=== PATIENT | female | born 1980 | race Caucasian/White ===

== ENCOUNTER 2019-11-24 19:00 | Emergency (ER) | payer OTHER, SELFPAY ==
[2019-11-24 19:17] VITALS: BP 151/84; PULSE 99; RESP 25; TEMP 37.1; O2SAT 100
--- NOTE | 2019-11-24 19:27 | ED.DENTAL ---
HPI - Dental/Oral General Chief complaint: Dental/Oral Stated complaint: tooth pain Time Seen by Provider: 11/24/19 19:20 Source: patient and RN notes reviewed Mode of arrival: ambulatory Limitations: no limitations History of Present Illness HPI Narrative: Patient presents today complaining of left upper and lower dental pain x4 days. She cannot pinpoint a 2 of 6 painful. She does not currently have a dentist. She has been taking Tylenol and using Orajel without relief. History of Crohn's disease and she is currently on day 15 of an 18-day course of Levaquin for Crohn's flare. Denies shortness of breath or difficulty swallowing. MD Complaint: tooth pain Related Data Home Medications Medication Instructions Recorded Confirmed omeprazole 11/24/19 Allergies Allergy/AdvReac Type Severity Reaction Status Date / Time Penicillins AdvReac Rash Verified 11/24/19 19:20 Review of Systems Review of Systems: Narrative: CONSTITUTIONAL: Denies body aches, fever, chills, or sweats. EYES: Denies visual changes, redness, or discharge. ENT: Denies rhinorrhea, congestion, sore throat, or otalgia.+ Dental pain CARDIOVASCULAR: Denies chest pain, palpitations, or edema. RESPIRATORY: Denies cough or dyspnea. GASTROINTESTINAL: Denies abdominal pain, nausea, vomiting, or diarrhea. GENITOURINARY: Denies dysuria or hematuria. SKIN: Denies rash, itching, or wounds. MUSCULOSKELETAL: Denies back pain, joint pain, or myalgia. NEUROLOGIC: Denies headache, numbness, tingling, or weakness. PSYCH: Denies depression or anxiety. [facility] Past Medical History Medical History (Updated 11/24/19 @ 19:32 by Fabi Venegas, [facility], ) Crohn's disease Comments At time of signature, I have reviewed and agree with nursing past medical, surgical, social and family history unless otherwise noted. Please see nursing chart for further information. There is no relevant family history pertinent to the presenting complaint Exam Narrative: Exam Narrative: GENERAL: Well-appearing, well-nourished, and in mild pain distress. HEAD: Normocephalic, atraumatic. EYES: EOMI. No redness or drainage. Conjunctivae normal. ENT: Mucous membranes pink and moist. Throat normal. Uvula midline. Moderate dental decay. Several missing teeth. Few teeth are black in color and broken off at the gumline. Patient has no obvious periapical abscess or gum swelling. Left upper and lower teeth are tender to palpation. NECK: Normal AROM. Supple. No lymphadenopathy. CHEST: No respiratory distress. EXTREMITIES: Normal range of motion. No edema. SKIN: Warm, dry, no rash. Capillary refill normal. Normal skin turgor. NEURO: No focal deficits. Alert and oriented x3. Gait steady. PSYCH: Normal affect. No signs of depression or anxiety. Course Vital Signs Vital signs: Vital Signs Temperature 98.7 F 11/24/19 19:17 Pulse Rate 99 11/24/19 19:17 Respiratory Rate 25 H 11/24/19 19:17 Blood Pressure 151/84 H 11/24/19 19:17 Pulse Oximetry 100 11/24/19 19:17 Temperature 98.7 F 11/24/19 19:17 Pulse Rate 99 11/24/19 19:17 Respiratory Rate 25 H 11/24/19 19:17 Blood Pressure 151/84 H 11/24/19 19:17 Pulse Oximetry 100 11/24/19 19:17 Reviewed. Pt has been instructed to follow up with her PCP regarding her elevated blood pressure today. MDM - Dental/Oral Differential Diagnosis Differential diagnosis: Likely gingival abscess, dental caries, toothache, dental abscess and fracture of tooth Critical Care Time Critical Care Time Critical Care Time: No Discharge Plan Discharge Clinical Impression: Dental caries Patient Disposition: Home, Self-Care Condition: Stable Instructions: Antibiotic Form, Dental Abscess (ED) Additional Instructions: Please take the clindamycin as prescribed. Follow-up with a dentist as soon as possible. Continue Tylenol and Orajel for pain. Your blood pressure was elevated above 120/80 today at Urgent Care. This
== END 2019-11-24 19:33 | disposition home or self-care (01) ==
PROVIDERS: Emergency Provider Nurse Practitioner
DX: K02.9 Dental caries, unspecified (principal)
CPT/HCPCS: 99203; G0463

== ENCOUNTER 2019-11-30 11:35 | Emergency (ER) | payer OTHER, SELFPAY ==
[2019-11-30 11:57] VITALS: BP 155/103; PULSE 97; RESP 18; TEMP 37.5; O2SAT 98
--- NOTE | 2019-11-30 11:59 | ED.SKABFB ---
HPI - Skin/Abscess/Foreign Bdy General Chief complaint: Skin/Abscess/Foreign Body Stated complaint: Possible Cellulitis on abd Time Seen by Provider: 11/30/19 11:59 Source: patient and RN notes reviewed Mode of arrival: ambulatory Limitations: no limitations History of Present Illness HPI narrative: 39-year-old female presents with concern for sores on her abdomen. Reports history of sores on her lower abdomen. Reports symptoms started 3 days ago with a boil then redness spread to her mid abdomen. Denies fever, malaise, drainage from the abdomen. Related Data Home Medications Medication Instructions Recorded Confirmed omeprazole 11/24/19 azathioprine 11/30/19 Allergies Allergy/AdvReac Type Severity Reaction Status Date / Time Penicillins AdvReac Rash Verified 11/24/19 19:20 Review of Systems Review of Systems: Narrative: CONSTITUTIONAL: Denies malaise, chills, sweats, or fever. CARDIOVASCULAR: Denies chest pain, palpitations RESPIRATORY: Denies cough or dyspnea. GASTROINTESTINAL: Denies abdominal pain, nausea, vomiting, diarrhea SKIN: Reports boil with surrounding redness, tenderness MUSCULOSKELETAL: Denies myalgia. All systems reviewed & are unremarkable except as noted in HPI and below PMFSH Past Medical History Medical History (Updated 11/30/19 @ 12:16 by Yuni Waite NP) Crohn's disease Comments At time of signature, agree with nursing past medical, surgical, social and family history. There is no relevant family history pertinent to the presenting complaint Exam Narrative: Exam Narrative: GENERAL: Well-appearing, well-nourished, and in no acute distress. HEAD: Normocephalic, atraumatic. EYES: PERRLA, conjunctivae clear ENT: Mucous membranes moist. CHEST: No respiratory distress. Speaks in full sentences. HEART: Regular rate and rhythm. ABDOMEN: Obese, pendulous SKIN: Warm, dry. Boil noted to right lower abdomen approximately 2 cm diameter of fluctuation palpable approximately 2 cm below the skin. Erythema, edema, tenderness surrounding boil and extending across the mid abdomen approximately 18 cm x 40 cm NEURO: Alert and oriented x3. PSYCH: Normal mood and affect Course Course Emergency Course: Patient is aware of diagnosis, understands and agrees to treatment plan. Anticipatory guidance given. Patient agrees to follow-up as directed and is aware of reasons to seek care at the emergency department. Portions of this record may have been created with voice recognition software Vital Signs Vital signs: Vital Signs Temperature 99.5 F 11/30/19 11:57 Pulse Rate 97 11/30/19 11:57 Respiratory Rate 18 11/30/19 11:57 Blood Pressure 155/103 H 11/30/19 11:57 Pulse Oximetry 98 11/30/19 11:57 Temperature 99.5 F 11/30/19 11:57 Pulse Rate 97 11/30/19 11:57 Respiratory Rate 18 11/30/19 11:57 Blood Pressure 155/103 H 11/30/19 11:57 Pulse Oximetry 98 11/30/19 11:57 Reviewed. Patient has been instructed to follow up with her primary care provider within the next week regarding her elevated blood pressure today. Procedures Abscess I/D abdomen: Date of Incision: 11/30/19 Time of Incision: 12:10 Technique: needle aspiration Amount of fluid expressed (mL): 4 Irrigation: No Packing used?: none I&D Results: Pus MDM - Skin/Abscess/Foreign Bdy MDM Narrative Medical decision making narrative: Exam findings show no acute concerns or changes; patient is non-toxic appearing and is in no distress. Patient is appropriate for outpatient treatment and follow-up. Differential Diagnosis Differential diagnosis: Likely abscess of skin or subcutaneous tissue, cellulitis and contact dermatitis Critical Care Time Critical Care Time Critical Care Time: No Discharge Plan Discharge Clinical Impression: Cellulitis Qualifiers: Site of cellulitis: trunk Site of cellulitis of trunk: abdominal wall Qualified Code(s): L03.311 - Cellu
== END 2019-11-30 12:24 | disposition home or self-care (01) ==
PROVIDERS: Emergency Provider Nurse Practitioner
DX: L03.311 Cellulitis of abdominal wall (principal); L02.211 Cutaneous abscess of abdominal wall
CPT/HCPCS: 10060; 87070; 87077; 87205; 99213; G0463

== ENCOUNTER 2019-12-18 13:54 | Inpatient (IN) | payer OTHER, SELFPAY ==
--- NOTE | ~2019-12-18 | CT_ITS ---
EXAMINATION: CT abdomen pelvis w con EXAM DATE: 12/18/2019 16:25 INDICATION: Cellulitis of the panniculus TECHNIQUE: Spiral CT of the abdomen and pelvis was performed following intravenous injection of 100 m L Omnipaque 350. Axial, coronal and sagittal images were reviewed. The dose-length product (DLP) fo r this examination was 1595.25 mGy-cm. The exposure was tailored according to patient size (auto mA exposure control), and iterative reconstruction (ASIR) was used as additional dose reduction techniqu e. There is no prior study for comparison. FINDINGS: There is a left adrenal gland low-density lesion measuring 9 mm, likely an adenoma. The li robert, spleen, adrenal glands and pancreas are otherwise unremarkable. There are cholecystectomy clips . Portal and splenic veins are patent. Kidneys enhance symmetrically. There is no hydronephrosis. Several left calyceal stones. The uterus is unremarkable. Right ovary likely has a dominant follicle . The bladder is unremarkable. There is no retroperitoneal or pelvic lymphadenopathy. Umbilicus i s unremarkable. Probable identification of a normal appendix. No pericecal inflammation. The stomach and small kale l are unremarkable. There is expected amount of colonic stool. No free intraperitoneal gas. The heart is normal in size. There are no pericardial or pleural effusions. The lung bases are unremark able. There are no osteoblastic or osteolytic lesions identified. IMPRESSION: 1. No acute intra-abdominal findings. 2. Left nephrolithiasis. 3. Left adrenal adenoma. Reviewed, dictated and finalized at location A.
--- NOTE | ~2019-12-18 | US_ITS ---
EXAMINATION: US venous doppler [facility] DATE: 12/19/2019 10:57 INDICATION: Lower limb edema. TECHNIQUE: Grayscale ultrasound images without and with compression and Doppler ultrasound images of the bilateral lower extremity veins were obtained. COMPARISON: None. FINDINGS: The visualized portions of right common femoral vein, profunda (deep) femoral vein, femoral vein, pop liteal vein, peroneal veins, posterior tibial veins, and greater saphenous vein outflow are patent. The visualized portions of left common femoral vein, profunda femoral vein, femoral vein, popliteal v ein, peroneal veins, posterior tibial veins, and greater saphenous vein outflow are patent. IMPRESSION: 1. No deep venous thrombosis. Reviewed, dictated and finalized at location A.
--- NOTE | 2019-12-18 14:47 | ED.GENADULT ---
HPI - General Adult General Chief complaint: Unspecified Stated complaint: Abd to feet swelling Time Seen by Provider: 12/18/19 14:38 History of Present Illness HPI narrative: Patient presents for lower abdominal pain and swelling. She recently had a boil lanced beneath her right panniculus. She has had 3 courses of oral antibiotics. The swelling and redness has expanded along her lower panniculus. She feels like her lower abdomen and legs are swollen. She has had no documented fever, no chills, but she has had sweats. She has a history of bowel resection from a Crohn's exacerbation, with insertion of mesh across the lower abdomen. History of cholecystectomy and appendectomy, and 3 laparoscopies, in addition to her bowel resection and mesh implantation. She is currently unemployed and would like to work her the [employer]. She recently quit smoking. She does like to drink alcohol, but does not smoke marijuana. Onset (ago): week(s) Location: abdomen Radiation: non-radiation Severity: moderate Severity scale (1-10): 5 Pain Consistency: constant Relieving factors: none Exacerbating factors: other (Palpitation) Associated symptoms: other (Chills, lower abdominal swelling, leg swelling) Treatments prior to arrival: other (3 courses of oral antibiotics) Related Data Home Medications Medication Instructions Recorded Confirmed omeprazole 11/24/19 azathioprine 11/30/19 Allergies Allergy/AdvReac Type Severity Reaction Status Date / Time Penicillins AdvReac Rash Verified 12/18/19 15:01 Review of Systems Review of Systems: Narrative: CONSTITUTIONAL: Denies fever or sweats. EYES: Denies visual changes, redness, or discharge. ENT: Denies rhinorrhea, congestion, sore throat, or otalgia. CARDIOVASCULAR: Denies chest pain, palpitations, or edema. RESPIRATORY: Denies cough or dyspnea. GASTROINTESTINAL: Denies nausea, vomiting, or diarrhea. GENITOURINARY: Denies dysuria or hematuria. SKIN: Denies rash or itching. MUSCULOSKELETAL: Denies back pain, joint pain, or myalgia. NEUROLOGIC: Denies headache, numbness, or weakness. PSYCHIATRIC: Denies anxiety or depression. [facility] Past Medical History Medical History Crohn's disease Rupture of bowel Surgical History Surgical History (Updated 12/18/19 @ 14:49 by Bhavna Gardiner MD) History of appendectomy History of bowel resection History of cholecystectomy Social History Social History (Updated 12/18/19 @ 14:49 by Bhavna Gardiner MD) Smoking status: Former smoker Alcohol intake: current Substance use: never Exam Narrative: Exam Narrative: GENERAL: Well-appearing, well-nourished, and in no acute distress. Overweight. HEAD: Normocephalic, atraumatic. EYES: PERRLA and EOMI. ENT: Nares clear, no rhinorrhea or epistaxis. Mucous membranes moist. NECK: Supple. CHEST: Clear to auscultation. No respiratory distress. HEART: Regular rate and rhythm. No murmur heard. Normal peripheral pulses. ABDOMEN: Panniculus is swollen, reddened, and tender. There is intertrigo between the panniculus in the suprapubic area. There is no focus of abscess or drainage. EXTREMITIES: Normal range of motion. Moderate edema SKIN: Warm, dry, no rash. NEURO: No focal deficits. Alert and oriented x3. PSYCH: Normal mood and affect. Course Reevaluation(s) Reevaluation #1: Went in to tell the patient that nothing serious showed up on her CAT scan, and that I would admit her for IV antibiotics for couple of days. She agrees, and I will order her regular diet. Date: 12/18/19 Time: 17:14 Consultations Consultation #1: Calling the hospitalist for admission for IV antibiotics for cellulitis of the panniculus, and possible infection of the graft material.Naina asked to find out where she got the mesh. [facility] in [facility]. Will call Dr. Salcedo to see if he will consult. Date: 12/18/19 Time: 17:14 Consultation #2: Call Dr. Maya
[2019-12-18 14:57] VITALS: BP 164/99; PULSE 110; RESP 20; TEMP 36.8; O2SAT 100
[2019-12-18] MEDS: SODIUM CHLORIDE 0.9% IV 1,000 ML 999 ML IV CONT (15:29)
[2019-12-18 15:30] LABS: Basophils Percent Auto 0.4 % (0.2-1.2); Eosinophils Absolute Auto 0.1 K/mm3 (0-0.3); Eosinophils Percent Auto 1.2 % (0-4.4); Hematocrit 30.7 % (37.0-47.0); Hemoglobin 9.3 g/dL (12.0-15.0); Immature Granulocyte Absolute 0.02 K/mm3 (0.00-0.031); Immature Granulocyte Percent A 0.3 % (0-0.5); Lymphocytes Absolute Auto 1.71 K/mm3 (0.9-3.2); Lymphocytes Percent Auto 25.1 % (18.3-44.2); Mean Corpuscular HGB Conc 30.3 g/dl (32-36); Mean Corpuscular Hemoglobin 24.2 pg (26-34); Mean Corpuscular Volume 79.7 fl (80-100); Monocytes Absolute Auto 0.4 K/mm3 (0.1-0.6); Neutrophils Absolute Auto 4.6 K/mm3 (1.3-6.7); Platelet Count Result 315 k/mm3 (150-375); Red Blood Count 3.85 M/mm3 (4.2-5.4); Red Cell Distribution Width 20.5 % (11.5-14.5); White Blood Count 6.8 K/mm3 (4.5-10.0)
[2019-12-18 15:43] LABS: Add Urine Microscopic? NO; Appearance Urine Clear (Clear); Bilirubin Urine Negative (Negative); Blood Urine Negative (Negative); Color Urine Yellow (Yellow); Glucose Urine UA Negative (Negative); Ketones Urine Negative (Negative); Leukocyte Esterase Ur Negative LEU/UL (Negative); Nitrate Urine Negative (Negative); Protein Urine Negative (Negative); Urobilinogen Urine Negative mg/dL (<2.0)
[2019-12-18 15:44] LABS: Alanine Aminotransferase 38 U/L (4-35); Albumin Level 3.8 g/dL (3.5-5.1); Alkaline Phosphatase 73 U/L (38-126); Aspartate Amino Transferase 42 U/L (14-36); Bilirubin,Total 0.4 mg/dL (0.2-1.3); Blood Urea Nitrogen 6 mg/dL (7-17); Calcium 9.3 mg/dL (8.4-10.2); Carbon Dioxide 24 mmol/L (22-30); Chloride 107 mmol/L (98-107); Estimated CRCL calculation 141 ml/min; Estimated Glomerular Filt Rate > 60; Glucose 98 mg/dL (65-105); Sodium 136 mmol/L (137-145)
[2019-12-18 15:45] LABS: Lactic Acid 0.6 mmol/L (0.7-2.1)
[2019-12-18 17:45] VITALS: BP 180/90; PULSE 80; RESP 20; TEMP 37.1; O2SAT 100
[2019-12-18 20:07] VITALS: BP 130/80; PULSE 80; RESP 20; O2SAT 99
--- NOTE | 2019-12-18 20:07 | ADMGEN ---
This patient, Roma Rowan, was admitted to Medical Room 250-01. Patient/family oriented to hospital policies and general routines including ID bracelet, bed and alarms, visiting hours, pain management, procedures, bathroom and other care routines, personal items, smoking policy, room service/diet, and visiting hours. Valuables list has been completed. Information on how to activate the Rapid Response Team has been discussed. Patient/Family are encouraged to report perceived risks to care and to ask questions if they do not understand what they are told or what they should do.
[2019-12-18 20:10] VITALS: BP 169/77; PULSE 91; RESP 22; TEMP 36.3; O2SAT 100; BMI 53.4
[2019-12-18] MEDS: ACETAMINOPHEN 325 MG TABLET 650 MG PO (20:30)
--- NOTE | 2019-12-18 23:34 | PM.IMHP ---
H&P: HPI History of Present Illness Chief complaint: cellulitis panniculus Narrative: Roma Rowan is a 39 year old female who has had a hernia repair 7 or 8 years ago with mesh to her abdomen is had multiple abdominal surgeries in the past. The patient stated that she has had cellulitis to her lower extremities in the past due to a cat bite. The patient been going to the urgent care it looks like on 11/24/2019 she was seen for cellulitis of the abdomen + dental caries. The patient has been on at least 4 antibiotics for her abdominal cellulitis. She has been on Bactrim, doxycycline, Levaquin, and clindamycin. Patient stated that her infection has not gotten any better. She did have an I and D of that abdomen abscess there 1 of the clinics wound culture from 11/30/2019 was read as Actinomyces neuii. Patient has failed outpatient treatment. A CT of the abdomen that was read as no acute intra-abdominal findings. Left nephrolithiasis. Left adrenal adenoma. Patient was placed on vancomycin and Levaquin. Surgical consult was placed and surgery stated that they were not needed at this time but in the near future they would be available if needed. She was started on IV fluids and given Tyrone 1 time. Date of service 12/18/2019 Review of Systems Review of Systems: All systems reviewed & are unremarkable except as noted in HPI and below Constitutional: Constitutional: Reports as per HPI and Reports no additional constitutional complaints Eyes: Eyes: Reports as per HPI and Reports no additional eye complaints ENT: Reports system reviewed and no additional complaints, except as documented and Reports Normal hearing present Cardiovascular: Cardiovascular: Reports no additional cardiovascular complaints Respiratory: Respiratory: Reports no additional respiratory complaints and Reports no additional respiratory complaints Gastrointestinal: Gastrointestinal: Reports as per HPI and Reports no additional gastrointestinal complaints Musculoskeletal: Musculoskeletal: Reports no additional musculoskeletal complaints Integumentary/Breasts: Skin/Breast: Reports system reviewed and no additional complaints, except as docu and Reports as per HPI Neurologic: Reports system reviewed and no additional complaints, except as documented, Reports as per HPI and Reports Normal hearing present Psychiatric: Psychiatric: Reports no additional psychiatric complaints and Reports as per HPI Endocrine: Endocrine: Reports no additional endocrine complaints Hematologic/Lymphatic: Hematologic/Lymphatic: Reports no additional hematologic/lymphatic complaints Allergic/Immunologic: Allergic/Immunologic: Reports no additional allergic/immunologic complaints [facility] Past Medical History Medical History (Updated 12/18/19 @ 23:54 by Naina Clayton NP) Crohn's disease GERD with esophagitis Small bowel obstruction Surgical History Surgical History (Updated 12/18/19 @ 23:42 by Naina Clayton NP) H/O hernia repair With mesh placement History of appendectomy History of cholecystectomy History of tonsillectomy Family History Family History (Updated 12/18/19 @ 23:43 by Naina Clayton NP) Father Diabetes mellitus Mother Hypertension Sibling Crohn's colitis Social History Social History (Updated 12/18/19 @ 23:44 by Naina Clayton NP) Social History: The patient moved here with her fiance. She has no children. She is not currently working and considered applying for disability due to her Crohn's disease. Patient quit smoking about a month ago. He smokes marijuana just brought every day. She does not have a power of jackerman but desires to be a full code. Years smoked: 20 Smoking status: Former smoker Tobacco type: cigarettes Smoking end date: 11/17/19 Alcohol intake: current Drinks per week: 1 Substance use: current Substance use type: marijuana Last use: 12/17/19 Living arrangements: with family Occupation/Educati
[2019-12-19 04:00] VITALS: BP 144/90; PULSE 87; RESP 22; TEMP 36.3; O2SAT 99
[2019-12-19 06:52] LABS: Basophils Percent Auto 0.4 % (0.2-1.2); Eosinophils Absolute Auto 0.1 K/mm3 (0-0.3); Eosinophils Percent Auto 1.7 % (0-4.4); Hematocrit 29.5 % (37.0-47.0); Hemoglobin 8.9 g/dL (12.0-15.0); Immature Granulocyte Absolute 0.03 K/mm3 (0.00-0.031); Immature Granulocyte Percent A 0.4 % (0-0.5); Lymphocytes Absolute Auto 1.94 K/mm3 (0.9-3.2); Lymphocytes Percent Auto 26.8 % (18.3-44.2); Mean Corpuscular HGB Conc 30.2 g/dl (32-36); Mean Corpuscular Hemoglobin 23.9 pg (26-34); Mean Corpuscular Volume 79.3 fl (80-100); Mean Platelet Volume 8.7 fl (7.4-10.4); Monocytes Absolute Auto 0.5 K/mm3 (0.1-0.6); Monocytes Percent Auto 6.4 % (2.6-8.5); Neutrophils Absolute Auto 4.7 K/mm3 (1.3-6.7); Neutrophils Percent Auto 64.3 % (45.5-73.1); Platelet Count Result 293 k/mm3 (150-375); Red Blood Count 3.72 M/mm3 (4.2-5.4); Red Cell Distribution Width 20.6 % (11.5-14.5); White Blood Count 7.2 K/mm3 (4.5-10.0)
[2019-12-19 07:03] LABS: Lactic Acid 0.6 mmol/L (0.7-2.1)
[2019-12-19 07:10] LABS: Alanine Aminotransferase 33 U/L (4-35); Albumin Level 3.6 g/dL (3.5-5.1); Alkaline Phosphatase 54 U/L (38-126); Aspartate Amino Transferase 40 U/L (14-36); Bilirubin,Total 0.4 mg/dL (0.2-1.3); Blood Urea Nitrogen 5 mg/dL (7-17); CRP 0.6 mg/dL (<1.0); Calcium 8.1 mg/dL (8.4-10.2); Carbon Dioxide 22 mmol/L (22-30); Chloride 106 mmol/L (98-107); Estimated CRCL calculation 159 ml/min; Estimated Glomerular Filt Rate > 60; Glucose 108 mg/dL (65-105); Magnesium 1.5 mg/dL (1.6-2.3); Sodium 134 mmol/L (137-145)
[2019-12-19] MEDS: MAGNESIUM SULF 1 GM/D5W 100 ML 1 GM/100 ML BAG IVPB (08:07)
[2019-12-19] MEDS: ENOXAPARIN 40 MG/0.4 ML SYRINGE SUB-Q (08:08)
[2019-12-19] MEDS: TOLNAFTATE 1% POWDER 45 GM BTL 1 APPLIC TOPICAL ×2 (08:08→20:34)
[2019-12-19] MEDS: AZATHIOPRINE 50 MG TABLET PO (08:08)
[2019-12-19] MEDS: PANTOPRAZOLE 40 MG TABLET PO ×2 (08:08→17:52)
--- NOTE | 2019-12-19 12:37 | WPDINFPN2 ---
Progress Note: A&P Assessment and Plan (1) Abdominal wall cellulitis: Code(s): L03.311 - Cellulitis of abdominal wall Status: Acute Assessment and Plan: Abdominal wall cellulitis due to immunosuppression, cannot rule out mesh infection REC Ctx #1, resume doxycycline at discharge to complete 4 weeks therapy (01/15/20) Subjective Date/time seen: 12/19/19 12:37 Objective Data Vital Signs Vital Signs: Vital Signs - 24 hr 12/18/19 14:57 12/18/19 17:45 12/18/19 20:07 Temperature 36.8 C 37.1 C Pulse Rate 110 H 80 80 Respiratory Rate 20 20 20 Blood Pressure 164/99 H 180/90 H 130/80 Pulse Oximetry 100 100 99 12/18/19 20:10 12/19/19 04:00 Temperature 36.3 C L 36.3 C L Pulse Rate 91 87 Respiratory Rate 22 H 22 H Blood Pressure 169/77 H 144/90 H Pulse Oximetry 100 99 Intake/Output Intake/Output: Intake & Output 12/16/19 12/17/19 12/18/19 12/19/19 23:59 23:59 23:59 23:59 Intake Total 1650 1020 Output Total 225 Balance 1650 795 Meds/Results Medications: Active Medications Generic Name Dose Route Start Last Admin Trade Name Freq PRN Reason Stop Dose Admin Acetaminophen 650 mg 12/19/19 07:05 Tylenol Tablet PO Q4H PRN Pain Rated 5 or Less Hydrocodone Bitart/Acetaminophen 1 tab 12/19/19 07:05 12/19/19 12:22 [place] 5-325 Mg PO 1 tab Q4H PRN Administration Pain Rated 6 or Greater Azathioprine 50 mg 12/19/19 09:00 12/19/19 08:08 Imuran PO 50 mg DAILY PAULA Administration Enoxaparin Sodium 40 mg 12/19/19 09:00 12/19/19 08:08 Lovenox SUB-Q 40 mg DAILY PAULA Administration Pantoprazole Sodium 40 mg 12/19/19 09:00 12/19/19 08:08 Protonix PO 40 mg BID PAULA Administration Tolnaftate 1 applic 12/19/19 09:00 12/19/19 08:08 Tolnaftate 1% Powder TOPICAL 1 applic Q12HR PAULA Administration Radiology Results: ITS Impressions Abdomen/Pelvis CT 12/18/19 16:35 IMPRESSION: 1. No acute intra-abdominal findings. 2. Left nephrolithiasis. 3. Left adrenal adenoma. Venous Doppler Study 12/19/19 11:41 IMPRESSION: 1. No deep venous thrombosis. Labs Labs: Laboratory Results - last 24 hr 12/18/19 12/18/19 12/18/19 15:19 15:19 15:19 WBC 6.8 RBC 3.85 L Hgb 9.3 L Hct 30.7 L MCV 79.7 L MCH 24.2 L MCHC 30.3 L RDW 20.5 H Plt Count 315 MPV 9.0 Immature Gran % (Auto) 0.3 Neut % (Auto) 67.0 Lymph % (Auto) 25.1 [place] % (Auto) 6.0 Eos % (Auto) 1.2 Baso % (Auto) 0.4 Lymph # (Auto) 1.71 [place] # (Auto) 0.4 Eos # (Auto) 0.1 Baso # (Auto) 0.0 Abs Immat Gran (auto) 0.02 Absolute Neuts (auto) 4.6 Absolute Nucleated RBC 0.0 Nucleated RBC % 0.0 Sodium 136 L Potassium 4.0 Chloride 107 Carbon Dioxide 24 BUN 6 L Creatinine 0.70 Estim Creat Clear Calc 141 Estimated GFR > 60 Glucose 98 Lactic Acid 0.6 L Calcium 9.3 Magnesium Total Bilirubin 0.4 AST 42 H ALT 38 H Alkaline Phosphatase 73 C-Reactive Protein Total Protein 7.0 Albumin 3.8 TSH (Reflex) Urine Color Urine Appearance Urine pH Ur Specific [place] Urine Protein Urine Glucose (UA) Urine Ketones Ur Blood (Man) Urine Nitrate Urine Bilirubin Urine Urobilinogen Leukocyte Esterase Rfl 12/18/19 12/19/19 12/19/19 15:34 06:45 06:45 WBC 7.2 RBC 3.72 L Hgb 8.9 L Hct 29.5 L MCV 79.3 L MCH 23.9 L MCHC 30.2 L RDW 20.6 H Plt Count 293 MPV 8.7 Immature Gran % (Auto) 0.4 Neut % (Auto) 64.3 Lymph % (Auto) 26.8 [place] % (Auto) 6.4 Eos % (Auto) 1.7 Baso % (Auto) 0.4 Lymph # (Auto) 1.94 [place] # (Auto) 0.5 Eos # (Auto) 0.1 Baso # (Auto) 0.0 Abs Immat Gran (auto) 0.03 Absolute Neuts (auto) 4.7 Absolute Nucleated RBC 0.0 Nucleated RBC % 0.0 Sodium 134 L Potassium 4.0 Chloride 106 Carbon Dioxi
[2019-12-19 14:00] VITALS: BP 136/76; PULSE 74; RESP 18; TEMP 36.4; O2SAT 100
--- NOTE | 2019-12-19 14:01 | PM.IMPN ---
Progress Note: A&P Assessment and Plan (1) Abdominal wall cellulitis: Code(s): L03.311 - Cellulitis of abdominal wall Status: Acute Assessment and Plan: Patient has had OP antibiotics including Bactrim, doxycycline, clindamycin, and Levaquin. ID has been consulted and appreciate recommendations. BCx pending. Initially on vanc and levaquin at arrival, however this has since been d/c per ID rec. Continue with Rocephin 1g IV Q24 hr per ID recs; will likely need PO doxycycline at discharge to complete 4 weeks antibiotic treatment course Continue tolnaftate powder Monitor labs Mesh infection cannot be excluded; consider Surgical consultation (2) Crohn's disease: Code(s): K50.90 - Crohn's disease, unspecified, without complications Status: Chronic Assessment and Plan: Continue with patient's azathioprine Will likely need f/u with PCP or GI specialist since she is new to the area (3) Anemia: Code(s): D64.9 - Anemia, unspecified Status: Acute Assessment and Plan: H&H stable today Continue to monitor. (4) Abdominal pain: Qualifiers: Abdominal location: unspecified location Qualified Code(s): R10.9 - Unspecified abdominal pain Code(s): R10.9 - Unspecified abdominal pain Status: Acute Assessment and Plan: Likely due to cellulitis although CT abd/pelvis shows a small kidney stone; pain does not seem renal in nature Will continue with the [place] for now and consider weaning if pain more tolerable (5) GERD with esophagitis: Code(s): K21.0 - Gastro-esophageal reflux disease with esophagitis Status: Chronic Assessment and Plan: No acute issues Continue with PPI therapy Subjective Date/time seen: 12/19/19 14:01 Interval history: Patient is a 39 yo F with history of Crohn's, GERD, and history of hernia mesh repair who is here for cellulitis of pannus. Patient states she is feeling better today. She is in less pain today and feels that her abdomen skin is less tense and hard . Patient has no other complaints at this time. Denies f/c/s, headaches, dizziness, lightheadedness, cp/palpitations, sob/cough, n/v/d/c, changes in BMs, dysuria, hematuria, cloudy urine, calf pain/swelling. Review of Systems Review of Systems: All systems reviewed & are unremarkable except as noted in HPI and below Exam Narrative: Exam Narrative: Patient lying supine in bed at time of visit Const: General: cooperative, comfortable, no acute distress, well developed, alert and awake Nutritional Appearance: well nourished and obese morbidly obese Orientation/consciousness: patient oriented x3 HENMT: Head: normocephalic and atraumatic General nose exam: Normal nares present Face and sinus: face symmetric Mouth: Yes moist mucous membranes Eyes: General: appearance normal, both eyes and all related structures EOM: EOMs intact bilaterally Neck: Neck: trachea midline and supple Resp: Effort & Inspection: normal respiratory effort Auscultation: clear to auscultation bilaterally Cardio: Rate: regular rate Rhythm: regular rhythm Heart sounds: no murmurs GI: Inspection: non-distended, Pannus present, obesity, scar (midline scar noted) and other (indurated skin of panus; mild erythema; mildly warm,tolnaftate powder noted) GI Palp: Yes abdominal tenderness (lower) and Yes Soft to palpation Auscultation: normal bowel sounds Skin: General skin exam: no rashes or lesions noted and erythema (LE erythema noted; warm to touch) Neuro: General: patient oriented x3, moves all extremities and no focal motor deficits Speech: normal speech Extrem: Right lower extremity: edema Left lower extremity: edema Other: NTTP b/l calves Erythema and warmth to b/l lower legs Psych:
--- NOTE | 2019-12-19 14:14 | CONS_ITS ---
DATE OF CONSULTATION: 12/19/2019 REASON FOR CONSULTATION: Cellulitis, abdominal wall. HISTORY OF PRESENT ILLNESS: Ms. Rowan is a 39-year-old female, who had a cholecystectomy performed at the age of 23, 16 years ago. About 6 years later, she had mesh placement for a ventral abdominal wall hernia and this has caused no problems until present. She was diagnosed some 6 months ago with Crohn disease after previous empiric treatments with prednisone. She has not received the latter in at least the year, but has been on azathioprine for the last 6 months. She was in her usual state of health until about 2 weeks prior to admission when she developed a cyst type lesion over the lateral aspect of the right mid abdomen. She then developed sensation of pain and swelling in the midline abdominal wall. She presented to Urgent Care on November 29, where she had superficial I and D performed, cultures since grown Actinomyces neuii. She was changed to doxycycline, but she continued to have pain in the anterior abdomen and presented to the emergency room yesterday. She has been given levofloxacin and vancomycin and consultation requested. No fever, chills, or sweats. She denies any other past operations to the abdomen. No trauma and no prior such episodes. HABITS: Ex-smoker. No alcohol to excess. PRESENT MEDICATIONS: As noted above. Imuran continues 50 mg daily. PAST MEDICAL HISTORY: Apparently, incidental appendectomy was performed in the distant past, but no pathology noted per patient. Also, previous tonsillectomy and has known GERD with esophagitis. FAMILY HISTORY: Crohn's, hypertension, and diabetes. SOCIAL HISTORY: No children. Lives locally. Use marijuana in [place]. REVIEW OF SYSTEMS: Constitutional, GI, musculoskeletal, skin, and respiratory otherwise negative. PHYSICAL EXAMINATION: GENERAL: This is a young female, appears her actual age, in no acute distress. VITAL SIGNS: Afebrile, 87, 22, 144/90, 99% room air. SKIN: Warm and dry. No rashes. EENT: Pupils equal, round, and reactive to light. No conjunctival injection. Oropharynx, oral mucosa are clear. NECK: No meningismus. LUNGS: Clear to auscultation and percussion. CARDIAC: Regular rate and rhythm. No murmur, gallop, or rub. ABDOMEN: Morbidly obese. She has a dimpling of the abdominal wall with mild confluent erythema and also mild tenderness. She has a hyperpigmented macule about 3 cm in diameter over the right lateral abdominal wall where the I and D was performed. There is no drainage, fluctuance, or crepitus elsewhere. ABDOMEN: Nontender and soft. No organomegaly. EXTREMITIES: Without clubbing, cyanosis, or edema. LABORATORY DATA: Wound cultures above. Blood cultures, no growth after a very short incubation. White count normal yesterday and today, hemoglobin 8.9, platelets are 293, normal differential. Initial chemistry panel with mild elevation in LFTs and a glucose of 98. BUN and creatinine are both low today. Her urinalysis normal. RADIOLOGICAL DATA: Abdomen and pelvic CT showed suspected adrenal adenoma, left kidney stones. ASSESSMENT: 1. Abdominal wall cellulitis without superficial trauma due to her immunosuppression as well as previous abdominal wall incisions are resulting in local immunocompromise. 2. Crohn disease on Imuran. 3. Morbid obesity. 4. Mesh in [address]. RECOMMENDATIONS: Change to ceftriaxone and once acceptable for discharge, doxycycline would be appropriate through January 14. I would use this for an extended period of time to the potential for mesh infection, particularly given the above organism. If she has recurrent or persistent findings, she will need to see her surgeon regarding mesh explantation. Thank you very much for asking me see.
[2019-12-19 20:00] VITALS: BP 134/78; PULSE 86; RESP 22; TEMP 36.6; O2SAT 100
[2019-12-20 04:44] VITALS: BP 140/75; PULSE 90; RESP 20; TEMP 36.4; O2SAT 99
[2019-12-20 06:05] LABS: Hematocrit 30.2 % (37.0-47.0); Mean Corpuscular HGB Conc 29.8 g/dl (32-36); Mean Corpuscular Hemoglobin 24.1 pg (26-34); Mean Corpuscular Volume 80.7 fl (80-100); Platelet Count Result 286 k/mm3 (150-375); Red Blood Count 3.74 M/mm3 (4.2-5.4); Red Cell Distribution Width 20.6 % (11.5-14.5); White Blood Count 7.1 K/mm3 (4.5-10.0)
[2019-12-20 06:22] LABS: Alanine Aminotransferase 35 U/L (4-35); Albumin Level 3.5 g/dL (3.5-5.1); Alkaline Phosphatase 66 U/L (38-126); Aspartate Amino Transferase 38 U/L (14-36); Bilirubin,Total 0.2 mg/dL (0.2-1.3); Blood Urea Nitrogen 7 mg/dL (7-17); Calcium 8.1 mg/dL (8.4-10.2); Carbon Dioxide 24 mmol/L (22-30); Chloride 107 mmol/L (98-107); Estimated CRCL calculation 138 ml/min; Estimated Glomerular Filt Rate > 60; Glucose 135 mg/dL (65-105); Magnesium 1.8 mg/dL (1.6-2.3); Potassium 4.2 mmol/L (3.4-5.0); Sodium 137 mmol/L (137-145)
[2019-12-20] MEDS: AZATHIOPRINE 50 MG TABLET PO (07:40)
[2019-12-20] MEDS: PANTOPRAZOLE 40 MG TABLET PO ×2 (07:40→16:50)
[2019-12-20] MEDS: ENOXAPARIN 40 MG/0.4 ML SYRINGE SUB-Q (07:40)
[2019-12-20] MEDS: TOLNAFTATE 1% POWDER 45 GM BTL 1 APPLIC TOPICAL ×2 (07:41→20:21)
--- NOTE | 2019-12-20 09:36 | PM.IMPN ---
Progress Note: A&P Assessment and Plan (1) Abdominal wall cellulitis: Code(s): L03.311 - Cellulitis of abdominal wall Status: Acute Assessment and Plan: Patient has had OP antibiotics including Bactrim, doxycycline, clindamycin, and Levaquin. ID has been consulted and appreciate recommendations. BCx negative to date. Initially on vanc and levaquin at arrival, however this has since been d/c per ID rec. Clinical improvement today; in less pain as well Continue with Rocephin 1g IV Q24 hr per ID recs; will likely need PO doxycycline at discharge to complete 4 weeks antibiotic treatment course Continue tolnaftate powder Monitor labs Mesh infection cannot be excluded; discussed if this to arise again, she would have to follow up with her Surgeon who performed operation - she understood instructions Will await for further recommendations on duration of IV Rocephin; will discharge on Doxycycline once okay from ID (2) Crohn's disease: Code(s): K50.90 - Crohn's disease, unspecified, without complications Status: Chronic Assessment and Plan: Continue with patient's azathioprine Will need f/u with PCP once established and then GI specialist referral since she is new to the area. Discussed in length about doing this promptly; patient understands and is agreeable (3) Anemia: Code(s): D64.9 - Anemia, unspecified Status: Acute Assessment and Plan: H&H stable today Continue to monitor. (4) Abdominal pain: Qualifiers: Abdominal location: unspecified location Qualified Code(s): R10.9 - Unspecified abdominal pain Code(s): R10.9 - Unspecified abdominal pain Status: Acute Assessment and Plan: Likely due to cellulitis although CT abd/pelvis shows a small kidney stone; pain does not seem renal in nature Patient wishes to continue with Tylenol only for pain and will use [place] only if Tylenol has no relief; she wishes to refrain from narcotics if possible (5) GERD with esophagitis: Code(s): K21.0 - Gastro-esophageal reflux disease with esophagitis Status: Chronic Assessment and Plan: No acute issues Continue with PPI therapy Subjective Date/time seen: 12/20/19 09:36 Interval history: Patient is a 39 yo F with history of Crohn's, GERD, and history of hernia mesh repair who is here for cellulitis of pannus. Patient states she is feeling better again today. She is in less pain again today and feels that her abdomen skin is less tense. Patient has no other complaints at this time. Denies f/c/s, headaches, dizziness, lightheadedness, cp/palpitations, sob/cough, n/v/d/c, changes in BMs, dysuria, hematuria, cloudy urine, calf pain/swelling. Review of Systems Review of Systems: All systems reviewed & are unremarkable except as noted in HPI and below Exam Narrative: Exam Narrative: Patient lying supine in bed at time of visit Const: General: cooperative, comfortable, no acute distress, well developed, alert and awake Nutritional Appearance: well nourished and obese morbidly obese Orientation/consciousness: patient oriented x3 HENMT: Head: normocephalic and atraumatic General nose exam: Normal nares present Face and sinus: face symmetric Mouth: Yes moist mucous membranes Eyes: General: appearance normal, both eyes and all related structures EOM: EOMs intact bilaterally Neck: Neck: trachea midline and supple Resp: Effort & Inspection: normal respiratory effort Auscultation: clear to auscultation bilaterally Cardio: Rate: regular rate Rhythm: regular rhythm Heart sounds: no murmurs GI: Inspection: non-distended, Pannus present, obesity, scar (midline scar noted) and other (indurated skin of pannus; mild erythema; improved; tolnaftate powder noted) Au
[2019-12-20 14:00] VITALS: BP 150/88; PULSE 83; RESP 18; TEMP 36.2; O2SAT 100
[2019-12-21] VITALS: BP 146/82; PULSE 84; RESP 18; TEMP 36.3; O2SAT 100
[2019-12-21 05:58] VITALS: BP 147/81; PULSE 93; RESP 16; TEMP 36.3; O2SAT 99
[2019-12-21 07:32] LABS: Hematocrit 33.8 % (37.0-47.0); Hemoglobin 10.2 g/dL (12.0-15.0); Mean Corpuscular HGB Conc 30.2 g/dl (32-36); Mean Corpuscular Hemoglobin 24.5 pg (26-34); Mean Corpuscular Volume 81.1 fl (80-100); Platelet Count Result 294 k/mm3 (150-375); Red Blood Count 4.17 M/mm3 (4.2-5.4); Red Cell Distribution Width 21.3 % (11.5-14.5)
[2019-12-21 07:55] LABS: Alanine Aminotransferase 63 U/L (4-35); Albumin Level 4.1 g/dL (3.5-5.1); Alkaline Phosphatase 80 U/L (38-126); Aspartate Amino Transferase 79 U/L (14-36); Bilirubin,Total 0.4 mg/dL (0.2-1.3); Blood Urea Nitrogen 9 mg/dL (7-17); Carbon Dioxide 25 mmol/L (22-30); Chloride 104 mmol/L (98-107); Estimated CRCL calculation 138 ml/min; Estimated Glomerular Filt Rate > 60; Glucose 108 mg/dL (65-105); Magnesium 1.8 mg/dL (1.6-2.3); Potassium 4.2 mmol/L (3.4-5.0); Sodium 135 mmol/L (137-145)
[2019-12-21] MEDS: ENOXAPARIN 40 MG/0.4 ML SYRINGE SUB-Q (08:29)
[2019-12-21] MEDS: AZATHIOPRINE 50 MG TABLET PO (08:29)
[2019-12-21] MEDS: PANTOPRAZOLE 40 MG TABLET PO ×2 (08:29→16:25)
[2019-12-21] MEDS: TOLNAFTATE 1% POWDER 45 GM BTL 1 APPLIC TOPICAL ×2 (08:30→20:38)
[2019-12-21] MEDS: ACETAMINOPHEN 325 MG TABLET 650 MG PO (08:38)
--- NOTE | 2019-12-21 08:59 | PM.IMPN ---
Progress Note: A&P Assessment and Plan (1) Abdominal wall cellulitis: Code(s): L03.311 - Cellulitis of abdominal wall Status: Acute Assessment and Plan: Patient has had OP antibiotics including Bactrim, doxycycline, clindamycin, and Levaquin per admission note. ID has been consulted and appreciate recommendations. BCx negative to date. Initially on vanc and levaquin at arrival, however this has since been d/c per ID rec. Clinical improvement again today; in less pain as well Continue with Rocephin 1g IV Q24 hr per ID recs; will plan on PO doxycycline at discharge to complete 4 weeks antibiotic treatment course Continue tolnaftate powder Monitor labs Mesh infection cannot be excluded; discussed if this to arise again, she would have to follow up with her Surgeon who performed operation - she understands instructions Will await for further recommendations on duration of IV Rocephin; will discharge on Doxycycline once okay for discharge (2) Crohn's disease: Code(s): K50.90 - Crohn's disease, unspecified, without complications Status: Chronic Assessment and Plan: Continue with patient's azathioprine Will need f/u with PCP once established and then GI specialist referral since she is new to the area. Discussed in length about doing this promptly; patient understands and is agreeable (3) Anemia: Code(s): D64.9 - Anemia, unspecified Status: Acute Assessment and Plan: H&H stable today Continue to monitor. (4) Abdominal pain: Qualifiers: Abdominal location: unspecified location Qualified Code(s): R10.9 - Unspecified abdominal pain Code(s): R10.9 - Unspecified abdominal pain Status: Acute Assessment and Plan: Likely due to cellulitis although CT abd/pelvis shows a small kidney stone; pain does not seem renal in nature Patient wishes to continue with Tylenol only for pain and will use [place] only if Tylenol has no relief; she wishes to refrain from narcotics if possible (5) GERD with esophagitis: Code(s): K21.0 - Gastro-esophageal reflux disease with esophagitis Status: Chronic Assessment and Plan: No acute issues Continue with PPI therapy Subjective Date/time seen: 12/21/19 08:59 Interval history: Patient is a 39 yo F with history of Crohn's, GERD, and history of hernia mesh repair who is here for cellulitis of pannus. Patient states she is feeling better again today, but a bit short of breath as she has not had her inhaler. She is in less pain again today and feels that her abdomen skin is less tense; she did have one dose of [place] yesterday as well. Patient has no other complaints at this time. Denies f/c/s, headaches, dizziness, lightheadedness, cp/palpitations, wheezing, cough, n/v/d/c, changes in BMs, dysuria, hematuria, cloudy urine, calf pain/swelling. Review of Systems Review of Systems: All systems reviewed & are unremarkable except as noted in HPI and below Exam Narrative: Exam Narrative: Patient sitting upright in bed at time of visit Const: General: cooperative, comfortable, no acute distress, well developed, alert and awake Nutritional Appearance: well nourished and obese morbidly obese Orientation/consciousness: patient oriented x3 HENMT: Head: normocephalic and atraumatic General nose exam: Normal nares present Face and sinus: face symmetric Mouth: Yes moist mucous membranes Eyes: General: appearance normal, both eyes and all related structures EOM: EOMs intact bilaterally Neck: Neck: trachea midline and supple Resp: Effort & Inspection: normal respiratory effort Auscultation: clear to auscultation bilaterally Cardio: Rate: regular rate Rhythm: regular rhythm Heart sounds: no murmurs GI: Inspection: non-diste
[2019-12-21 14:00] VITALS: BP 112/63; PULSE 84; RESP 18; TEMP 37.2; O2SAT 99
[2019-12-21] MEDS: ONDANSETRON HCL ODT 4 MG TABLET PO (16:25)
[2019-12-21 22:00] VITALS: BP 147/79; PULSE 85; RESP 18; TEMP 36.3; O2SAT 98
[2019-12-22] MEDS: ACETAMINOPHEN 325 MG TABLET 650 MG PO (01:41)
[2019-12-22] MEDS: ONDANSETRON HCL ODT 4 MG TABLET PO (01:41)
[2019-12-22 05:57] VITALS: BP 148/81; PULSE 87; RESP 20; TEMP 36.1; O2SAT 97
[2019-12-22] MEDS: AZATHIOPRINE 50 MG TABLET PO (09:26)
[2019-12-22] MEDS: ENOXAPARIN 40 MG/0.4 ML SYRINGE SUB-Q (09:27)
[2019-12-22] MEDS: PANTOPRAZOLE 40 MG TABLET PO (09:27)
[2019-12-22] MEDS: TOLNAFTATE 1% POWDER 45 GM BTL 1 APPLIC TOPICAL (09:27)
[2019-12-22 09:59] LABS: Basophils Percent Auto 0.5 % (0.2-1.2); Eosinophils Absolute Auto 0.1 K/mm3 (0-0.3); Eosinophils Percent Auto 1.7 % (0-4.4); Hematocrit 31.4 % (37.0-47.0); Hemoglobin 9.7 g/dL (12.0-15.0); Immature Granulocyte Absolute 0.02 K/mm3 (0.00-0.031); Immature Granulocyte Percent A 0.3 % (0-0.5); Lymphocytes Absolute Auto 1.38 K/mm3 (0.9-3.2); Lymphocytes Percent Auto 21.7 % (18.3-44.2); Mean Corpuscular HGB Conc 30.9 g/dl (32-36); Mean Corpuscular Hemoglobin 24.4 pg (26-34); Mean Corpuscular Volume 79.1 fl (80-100); Mean Platelet Volume 9.6 fl (7.4-10.4); Monocytes Absolute Auto 0.4 K/mm3 (0.1-0.6); Monocytes Percent Auto 6.3 % (2.6-8.5); Neutrophils Absolute Auto 4.4 K/mm3 (1.3-6.7); Neutrophils Percent Auto 69.5 % (45.5-73.1); Platelet Count Result 279 k/mm3 (150-375); Red Blood Count 3.97 M/mm3 (4.2-5.4); Red Cell Distribution Width 21.2 % (11.5-14.5); White Blood Count 6.4 K/mm3 (4.5-10.0)
[2019-12-22 10:10] LABS: Alanine Aminotransferase 65 U/L (4-35); Alkaline Phosphatase 78 U/L (38-126); Aspartate Amino Transferase 69 U/L (14-36); Bilirubin,Total 0.6 mg/dL (0.2-1.3); Blood Urea Nitrogen 8 mg/dL (7-17); Calcium 9.2 mg/dL (8.4-10.2); Carbon Dioxide 22 mmol/L (22-30); Chloride 106 mmol/L (98-107); Estimated CRCL calculation 138 ml/min; Estimated Glomerular Filt Rate > 60; Glucose 103 mg/dL (65-105); Magnesium 1.7 mg/dL (1.6-2.3); Potassium 3.9 mmol/L (3.4-5.0); Sodium 136 mmol/L (137-145)
--- NOTE | 2019-12-22 10:48 | PM.DS ---
DS: Admitting Diagnosis Admitting Diagnosis Admitting Diagnosis: Cellulitis of abdominal wall DS: Discharge Diagnosis Discharge Diagnosis (1) Abdominal wall cellulitis: Code(s): L03.311 - Cellulitis of abdominal wall Status: Acute Assessment and Plan: Patient has had OP antibiotics including Bactrim, doxycycline, clindamycin, and Levaquin per admission note. ID has been consulted and appreciate recommendations. BCx negative to date. Initially on vanc and levaquin at arrival, however this has since been d/c per ID rec. Clinical improvement again today; in less pain as well Continue with Rocephin 1g IV Q24 hr per ID recs through today; will plan on PO doxycycline at discharge through 01/14 Continue tolnaftate powder Tylenol as needed, sparingly given LFTs Will order probiotics Mesh infection cannot be excluded; discussed if this to arise again, she would have to follow up with her Surgeon who performed operation - she understands instructions F/u with PCP once established (2) Crohn's disease: Code(s): K50.90 - Crohn's disease, unspecified, without complications Status: Chronic Assessment and Plan: Continue with patient's azathioprine Will need f/u with PCP once established and then GI specialist referral since she is new to the area. Discussed in length about doing this promptly; patient understands and is agreeable (3) Anemia: Code(s): D64.9 - Anemia, unspecified Status: Acute Assessment and Plan: H&H stable today Continue to monitor. (4) Abdominal pain: Qualifiers: Abdominal location: unspecified location Qualified Code(s): R10.9 - Unspecified abdominal pain Code(s): R10.9 - Unspecified abdominal pain Status: Acute Assessment and Plan: Likely due to cellulitis although CT abd/pelvis shows a small kidney stone; pain does not seem renal in nature Recommended f/u with PCP Tylenol only as needed for pain (5) GERD with esophagitis: Code(s): K21.0 - Gastro-esophageal reflux disease with esophagitis Status: Chronic Assessment and Plan: No acute issues Continue with PPI therapy (6) Elevated LFTs: Code(s): R79.89 - Other specified abnormal findings of blood chemistry Status: Acute Assessment and Plan: LFTs downtrending/stable since yesterday. No abnormalities of liver noted on CT. h/o cholecystectomy Will do CMP in 1 week If still elevated, will likely need further work up as outpatient per PCP f/u with PCP DS: Summary Hospital Course Reason for hospitalization: Abdominal wall cellulitis Hospital Course: Patient is a 39 yo F with history of SBO, Crohn's, and hernia repair with mesh 7-8 years ago who presented to the ED on 12/17 with complaints of lower abdominal pain and swelling. While in the ED, patient was found to have likely cellulitis of lower abdomen/pannus with possible infection of mesh. Patient admitted under this setting. Please see H&P for further details. Presenting VS: Temp Pulse Resp BP Pulse Ox 98.2 F 110 H 20 164/99 H 100 12/18/19 14:57 12/18/19 14:57 12/18/19 14:57 12/18/19 14:57 12/18/19 14:57 Presenting Pertinent labs: CBC, chemistry, and UA grossly unremarkable Micro: BCx negative to date x 2 Imaging: Abdomen/Pelvis CT 12/18/19 16:35 IMPRESSION: 1. No acute intra-abdominal findings. 2. Left nephrolithiasis. 3. Left adrenal adenoma. Venous Doppler Study 12/19/19 11:41 IMPRESSION: 1. No deep venous thrombosis ECG: none Patient was admitted to the hospitalist service for further evaluation for cellulitis of pannus; Dr. Perez, ID, was consulted for further input/management. Initially, patient was started on IV vanc and levaquin;
[2019-12-22 14:00] VITALS: BP 135/67; PULSE 88; RESP 19; TEMP 36.4; O2SAT 97
== END 2019-12-22 15:29 | disposition home or self-care (01) | DRG 383 ==
LOC: ANHED 18:44 → ANH2MED 12-19 06:53
PROVIDERS: Nurse Practitioner; Admitting Provider Family Medicine; Emergency Provider Emergency Medicine; Visit Provider Physician Assistant
DX: L03.311 Cellulitis of abdominal wall (principal); K50.90 Crohn's disease, unspecified, without complications; K21.9 Gastro-esophageal reflux disease without esophagitis; E66.01 Morbid (severe) obesity due to excess calories; Z68.43 Body mass index [BMI] 50.0-59.9, adult
CPT/HCPCS: 36415; 74177; 80053; 81003; 81025; 83605; 83735; 84443; 85025; 85027; 86140; 87040; 93970; 96365; 96366; 96367; 99285; A9270; J0696; J1650; J1956; J3370; J3475; J7030; Q9967

== ENCOUNTER 2019-12-25 18:19 | Inpatient (IN) | payer OTHER, SELFPAY ==
--- NOTE | ~2019-12-25 | CT_ITS ---
EXAMINATION: CT abdomen pelvis w con DATE: 12/25/2019 20:34 INDICATION: Abdominal pain. Vomiting. Crohn disease. TECHNIQUE: Computed tomography (CT) of the abdomen and pelvis was performed with 100 mL Omnipaque 350 intravenous contrast. Automated exposure control and iterative reconstruction technique were employe d. The dose-length product was 1530.03 mGy-cm. COMPARISON: CT abdomen and pelvis 12/18/2019 FINDINGS: The visualized portions of the lung bases are clear without pneumonia or pleural effusion. The heart size is normal. No pericardial effusion. There is diffuse hepatic steatosis. There are browne ges of cholecystectomy. The spleen, pancreas, and right adrenal gland are normal. There is a 10 mm ma ss in left adrenal gland measuring soft tissue attenuation. Right kidney is normal. There are 6 stone s in left kidney measuring up to 6 mm. The colon is decompressed. There is wall thickening of many co ntiguous loops of ileum with sparing of the terminal ileum. There is dilatation of multiple loops of jejunum and ileum with gradual transition to normal caliber. There are no pathologically enlarged lym ph nodes. There is no free intraperitoneal fluid. 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 IMPRESSION: 1. New wall thickening of ileum, consistent with enteritis. 2. New dilatation of multiple loops of jejunum and ileum, consistent with adynamic ileus versus parti al small bowel obstruction. 3. 10 mm left adrenal mass. In the absence of known malignancy, this finding is likely an adenoma. Reviewed, dictated and finalized at location A. IMPRESSION: 1. New wall thickening of ileum, consistent with enteritis. 2. New dilatation of multiple loops of jejunum and ileum, consistent with adyna naman ileus versus partial small bowel obstruction. 3. 10 mm left adrenal mass. In the absence of known malignancy, this finding is likely an adenoma.
--- NOTE | ~2019-12-25 | XR_ITS ---
EXAMINATION: XR UGIAC w small bowel DATE: 12/27/2019 13:41 INDICATION: Small bowel obstruction. Crohn's disease. TECHNIQUE: The patient drank thick barium, gas-producing crystals, and thin barium. Conventional supi ne abdomen radiographs and fluoroscopic spot radiographs of the esophagus, stomach, and proximal smal l bowel were obtained. Additional overhead radiographs were obtained during the transit through the s mall bowel. Spot fluoroscopic images of the small bowel were obtained upon contrast reaching the cec um. Fluoroscopy exposure time was 2.1 minutes. A total of 625 images were recorded. COMPARISON: CT dated 12/25/2019 FINDINGS: The esophagus is normal without mass or stricture. Esophageal motility is normal. There is no hiatal hernia. There was no gastroesophageal reflux with provocative maneuvers. The stomach and proximal sma ll bowel are normal. Cholecystectomy clips in the right upper quadrant. Transit time from the stomach to proximal colon was approximately 4.5 hours. There is transient mild dilation of multiple segments of small bowel without a discrete transition point to suggest obstructi on. There is a normal mucosal fold pattern throughout the small bowel. Terminal ileum is normal. No t ethering or abnormal mass effect observed upon the small bowel with real-time fluoroscopy. At the con clusion of the study there is contrast extending to the rectum which demonstrates segments of relativ e narrowing in the sigmoid colon which could be artifactual due to incomplete distention or stricture s related to chronic Crohn's disease. There appears be a cobblestone mucosal pattern in the transvers e and proximal descending colon likely related to Crohn's disease although evaluation significantly l imited by incomplete distention. IMPRESSION: 1. Delayed transit of contrast in the colon requiring 4.5 hours without evident transition point to s uggest obstruction and likely related to ileus. 2. Resolution of the wall/mucosal fold thickening previously seen in the mid to distal small bowel wh ich may be related to known history of Crohn's disease or more likely infectious enteritis given the extensive distribution and relative the rapid resolution. 3. Short segment of relative luminal narrowing in the sigmoid colon which may be artifact of incomple te distention or strictures related to chronic Crohn's disease. 4. Normal upper GI study. Reviewed, dictated and finalized at location A. IMPRESSION: 1. Delayed transit of contrast in the colon requiring 4.5 hours without evident transition point to suggest obstruction and likely related to ileus. 2. Resolution of the wall/mucosal fold thickening previously seen in the mid to distal small bowel which may be related to known history of Crohn's disease or more likely infectious enteritis given the extensive distribution and relative the rapid resolution. 3. Short segment of relative luminal narrowing in the sigmoid colon which may b e artifact of incomplete distention or strictures related to chronic Crohn's di sease. 4. Normal upper GI study.
[2019-12-25 18:45] VITALS: BP 146/96; PULSE 96; RESP 20; TEMP 37; O2SAT 97
[2019-12-25 18:46] LABS: Basophils Percent Auto 0.4 % (0.2-1.2); Eosinophils Absolute Auto 0.1 K/mm3 (0-0.3); Hematocrit 36.5 % (37.0-47.0); Hemoglobin 11.2 g/dL (12.0-15.0); Immature Granulocyte Absolute 0.03 K/mm3 (0.00-0.031); Immature Granulocyte Percent A 0.3 % (0-0.5); Lymphocytes Absolute Auto 2.53 K/mm3 (0.9-3.2); Lymphocytes Percent Auto 25.8 % (18.3-44.2); Mean Corpuscular HGB Conc 30.7 g/dl (32-36); Mean Corpuscular Hemoglobin 24.1 pg (26-34); Mean Corpuscular Volume 78.7 fl (80-100); Mean Platelet Volume 9.1 fl (7.4-10.4); Monocytes Absolute Auto 0.5 K/mm3 (0.1-0.6); Monocytes Percent Auto 5.5 % (2.6-8.5); Neutrophils Absolute Auto 6.6 K/mm3 (1.3-6.7); Platelet Count Result 338 k/mm3 (150-375); Red Blood Count 4.64 M/mm3 (4.2-5.4); Red Cell Distribution Width 21.7 % (11.5-14.5); White Blood Count 9.8 K/mm3 (4.5-10.0)
[2019-12-25 18:52] VITALS: O2SAT 100
[2019-12-25 18:58] LABS: Alanine Aminotransferase 40 U/L (4-35); Albumin Level 4.6 g/dL (3.5-5.1); Alkaline Phosphatase 90 U/L (38-126); Aspartate Amino Transferase 38 U/L (14-36); Bilirubin,Total 0.7 mg/dL (0.2-1.3); Blood Urea Nitrogen 10 mg/dL (7-17); Calcium 9.9 mg/dL (8.4-10.2); Carbon Dioxide 24 mmol/L (22-30); Chloride 104 mmol/L (98-107); Estimated CRCL calculation 141 ml/min; Estimated Glomerular Filt Rate > 60; Glucose 119 mg/dL (65-105); Lipase 60 U/L (23-300); Potassium 3.7 mmol/L (3.4-5.0); Sodium 137 mmol/L (137-145)
--- NOTE | 2019-12-25 19:10 | ED.ABDPAIN ---
HPI - Abdominal Pain General Chief Complaint: Abdominal Pain Stated Complaint: ABD PAIN Time Seen by Provider: 12/25/19 19:10 Source: patient Mode of arrival: ambulatory Limitations: no limitations History of Present Illness HPI narrative: Patient is a 39-year-old female here for evaluation of abdominal pain. Patient has a history of Crohn's disease, reports abdominal pain in the middle, upper part of her abdomen without radiation to the back or chest. Pain is severe, sharp, stabbing in nature associated nausea and vomiting. No diarrhea. Patient reports she has not been moving her bowels normally, she has a history of bowel obstruction, gastritis, gastroenteritis in the past. Patient recently moved here from [facility], has not established with a GI physician. She takes azathioprine for her Crohn's disease. Patient was recently admitted to this hospital for abdominal wall cellulitis, discharged home 4 days ago, doing well until 2 days ago when the pain began. Related Data Home Medications Medication Instructions Recorded Confirmed omeprazole 40 mg PO BID 11/24/19 12/18/19 azathioprine 50 mg PO DAILY 11/30/19 12/18/19 Allergies Allergy/AdvReac Type Severity Reaction Status Date / Time Penicillins AdvReac Rash Verified 12/18/19 15:01 Review of Systems Review of Systems: Narrative: CONSTITUTIONAL: Denies fever, chills, or sweats. CARDIOVASCULAR: Denies chest pain, palpitations, or edema. RESPIRATORY: Denies cough or dyspnea. GASTROINTESTINAL: Reports abdominal pain, nausea, vomiting GENITOURINARY: Denies dysuria or hematuria. SKIN: Denies rash or itching. MUSCULOSKELETAL: Denies back pain, joint pain, or myalgia. NEUROLOGIC: Denies headache, numbness, or weakness. [facility] Past Medical History Medical History Crohn's disease GERD with esophagitis Small bowel obstruction Surgical History Surgical History H/O hernia repair With mesh placement History of appendectomy History of cholecystectomy History of tonsillectomy Family History Family History Father Diabetes mellitus Mother Hypertension Sibling Crohn's colitis Social History Social History Social History: The patient moved here with her fiance. She has no children. She is not currently working and considered applying for disability due to her Crohn's disease. Patient quit smoking about a month ago. He smokes marijuana just brought every day. She does not have a power of family law attorney but desires to be a full code. Years smoked: 20 Smoking status: Former smoker Tobacco type: cigarettes Smoking end date: 11/17/19 Alcohol intake: current Drinks per week: 1 Substance use: current Substance use type: marijuana Last use: 12/17/19 Gender identity (if verbalized by the patient): Female Spiritual care concerns: No Exam Narrative: Exam Narrative: GENERAL: Awake, alert, tearful, uncomfortable. HEAD: Normocephalic, atraumatic. EYES: PERRLA and EOMI. ENT: Nares clear, no rhinorrhea or epistaxis. Mucous membranes moist. NECK: Supple. CHEST: No respiratory distress, breathing even and non labored HEART: Regular rate, sinus rhythm ABDOMEN: Obese abdomen, surgical scars well-healed, tender in the periumbilical epigastric area, positive guarding, no rebound EXTREMITIES: Normal range of motion. No edema. SKIN: Warm, dry, no rash. No evidence of cellulitic changes. NEURO:No focal deficits. Alert and oriented x3 Course Vital Signs Vital signs: Vital Signs Temperature 37.0 C 12/25/19 18:45 Pulse Rate 96 12/25/19 18:45 Respiratory Rate 20 12/25/19 18:45 Blood Pressure 146/96 H 12/25/19 18:45 Pulse Oximetry 97 12/25/19 18:45 Temperature 37.0 C 12/25/19 18:45 Pulse Rate 96 12/25/19 18:4
[2019-12-25 19:40] LABS: Add Urine Microscopic? YES; Appearance Urine Clear (Clear); Bacteria Urine Trace /hpf; Bilirubin Urine Negative (Negative); Blood Urine 1+ (Negative); Color Urine Yellow (Yellow); Glucose Urine UA Negative (Negative); Ketones Urine Negative (Negative); Leukocyte Esterase Ur Negative LEU/UL (Negative); Mucus Urine Heavy /lpf; Nitrate Urine Negative (Negative); Protein Urine 1+ mg/dL (Negative); RBC Urine 0-2 /hpf (0-2); Specific Grav Ur 1.021 (1.001-1.035); Squamous Epithelial Cell Urine Moderate /hpf (Few); Urobilinogen Urine Negative mg/dL (<2.0); WBC Urine 0-3 /hpf
[2019-12-25] MEDS: ONDANSETRON INJ 4 MG/2 ML VIAL IV PUSH ×2 (19:56→23:54)
[2019-12-25] MEDS: MORPHINE SULFATE 4 MG/ML INJ IV PUSH ×2 (19:56→22:53)
[2019-12-25] MEDS: SODIUM CHLORIDE 0.9% IV 1,000 ML 999 ML IV CONT (19:57)
[2019-12-25] MEDS: HYDROMORPHONE HCL 1 MG/ML INJ 0.5 MG IV PUSH (21:19)
--- NOTE | 2019-12-25 21:37 | PC.NURSE ---
Pt was informed that she would need an NG tube for a partial small bowel obstruction and pt stated she did not want one. MD bee
--- NOTE | 2019-12-25 23:30 | ADMGEN ---
This patient, Roma Rowan, was admitted to Medical Room 252-01. Patient/family oriented to hospital policies and general routines including ID bracelet, bed and alarms, visiting hours, pain management, procedures, bathroom and other care routines, personal items, smoking policy, room service/diet, and visiting hours. Valuables list has been completed. Information on how to activate the Rapid Response Team has been discussed. Patient/Family are encouraged to report perceived risks to care and to ask questions if they do not understand what they are told or what they should do.
[2019-12-26] VITALS: BMI 45.1
[2019-12-26 00:08] VITALS: BP 151/78; PULSE 70; RESP 20; TEMP 36.2; O2SAT 98
[2019-12-26] MEDS: MORPHINE SULFATE 4 MG/ML INJ IV PUSH ×4 (00:54→09:26)
[2019-12-26] MEDS: SODIUM CHLORIDE 0.9% IV 1,000 ML 125 ML IV CONT ×3 (00:55→19:46)
--- NOTE | 2019-12-26 02:05 | PM.IMHP ---
H&P: HPI History of Present Illness Chief complaint: Partial SBO, Enteritis Narrative: This is a 39 year old morbidly obese female with known Crohn's disease who was just discharged from our Hospitalist service after she was treated for abdominal wall cellulitis and now returned to the hospital with diffuse abdominal pain. She reports that she has had abdominal pain since the day she was discharged but her abdominal pain became very severe over the past 2 days. She last ate some fries yesterday and immediately vomited them up. She denies any bloody emesis. She also denies any fever, chills, chest pain, shortness of breath, or bloody stools. The patient recently moved here from [facility], has not established with a GI physician. She is known to have had previous bowel obstructions in the past. [facility] and found to have new wall thickening of ileum, consistent with enteritis and new dilatation of multiple loops of jejunum and ileum, consistent with adynamic ileus versus partial small bowel obstruction on CT abd/pelvis. The patient has been treated with pain medications and antiemetics and general surgery has been consulted. No other complaints. Review of Systems Review of Systems: All systems reviewed & are unremarkable except as noted in HPI and below PMFSH Past Medical History Medical History Crohn's disease GERD with esophagitis Small bowel obstruction Surgical History Surgical History H/O hernia repair With mesh placement History of appendectomy History of cholecystectomy History of tonsillectomy Family History Family History Father Diabetes mellitus Mother Hypertension Sibling Crohn's colitis Social History Social History Social History: The patient moved here with her fiance. She has no children. She is not currently working and considered applying for disability due to her Crohn's disease. Patient quit smoking about a month ago. He smokes marijuana just brought every day. She does not have a power of manager change but desires to be a full code. Smoking packs per day: 1 Smoking cigarettes per day: 20.0 Years smoked: 20 Smoking pack-years: 20.00 Smoking status: Former smoker Tobacco type: cigarettes Second hand tobacco smoke exposure: Yes Smoking end date: 11/17/19 Alcohol intake: current Drinks per week: 1 Substance use: never Substance use type: does not use Last use: 12/17/19 Gender identity (if verbalized by the patient): Female Spiritual care concerns: No Meds Home Medications and Allergies Home Medications Medication Instructions Recorded Confirmed Type omeprazole 40 mg PO BID 11/24/19 12/25/19 History azathioprine 50 mg PO DAILY 11/30/19 12/25/19 History doxycycline hyclate 100 mg PO BID #48 tablet 12/22/19 12/25/19 Rx Allergies Allergy/AdvReac Type Severity Reaction Status Date / Time Penicillins AdvReac Rash Verified 12/18/19 15:01 Vital Signs Vital Signs - 24 hr 12/25/19 18:45 12/25/19 18:52 12/26/19 00:08 Temperature 37.0 C 36.2 C L Pulse Rate 96 70 Respiratory Rate 20 20 Blood Pressure 146/96 H 151/78 H Pulse Oximetry 97 100 98 Exam Const: General: cooperative, no acute distress, alert and awake Nutritional Appearance: well nourished Orientation/consciousness: patient oriented x3 HENMT: Head: normal to inspection General nose exam: Normal external nose present Face and sinus: normal facial exam Mouth: Yes Normal oral and palatal mucosa present and Yes oropharynx normal Eyes: Pupils: Equal, round and reactive pupils present EOM: EOMs intact bilaterally Neck: Neck: supple and no JVD Thyroid: thyroid normal Lymphatic: lymphadenopathy not noted Resp: Effort & Inspection:
[2019-12-26 05:18] LABS: Basophils Percent Auto 0.4 % (0.2-1.2); Eosinophils Absolute Auto 0.1 K/mm3 (0-0.3); Eosinophils Percent Auto 0.9 % (0-4.4); Hemoglobin 9.6 g/dL (12.0-15.0); Immature Granulocyte Absolute 0.03 K/mm3 (0.00-0.031); Immature Granulocyte Percent A 0.4 % (0-0.5); Lymphocytes Absolute Auto 2.27 K/mm3 (0.9-3.2); Mean Corpuscular Hemoglobin 24.1 pg (26-34); Mean Corpuscular Volume 80.4 fl (80-100); Mean Platelet Volume 9.3 fl (7.4-10.4); Monocytes Absolute Auto 0.5 K/mm3 (0.1-0.6); Monocytes Percent Auto 6.4 % (2.6-8.5); Neutrophils Absolute Auto 5.2 K/mm3 (1.3-6.7); Neutrophils Percent Auto 63.9 % (45.5-73.1); Platelet Count Result 261 k/mm3 (150-375); Red Blood Count 3.98 M/mm3 (4.2-5.4); Red Cell Distribution Width 21.2 % (11.5-14.5); White Blood Count 8.1 K/mm3 (4.5-10.0)
[2019-12-26 05:31] LABS: Blood Urea Nitrogen 11 mg/dL (7-17); Calcium 8.4 mg/dL (8.4-10.2); Carbon Dioxide 27 mmol/L (22-30); Chloride 107 mmol/L (98-107); Estimated CRCL calculation 138 ml/min; Estimated Glomerular Filt Rate > 60; Glucose 97 mg/dL (65-105); Potassium 3.5 mmol/L (3.4-5.0); Sodium 138 mmol/L (137-145)
[2019-12-26 06:00] VITALS: BP 135/84; PULSE 60; RESP 20; TEMP 36.7; O2SAT 97
[2019-12-26] MEDS: ONDANSETRON INJ 4 MG/2 ML VIAL IV PUSH ×4 (06:53→19:46)
--- NOTE | 2019-12-26 09:49 | PM.CNGS ---
Assessment and Plan Assessment and plan (1) Partial small bowel obstruction: Code(s): K56.600 - Partial intestinal obstruction, unspecified as to cause Status: Acute Assessment and Plan: CT scan reviewed and discussed with the patient in detail. She has evidence of a partial small bowel obstruction due to her Crohn's disease. The patient reports having a stricture in her small bowel that typically causes her problems but has not required resection in the past. The patient is currently not nauseated and has not vomited since admitted to the medical floor. Will defer the NG tube for now, but discussed that this may be needed if her symptoms worsen or return. She is agreeable to an NG tube if this occurs. Continue IV fluids and analgesics. Gastroenterology has been consulted and recommendations are appreciated. Okay to be on a clear liquid diet from a surgical standpoint. We will continue to follow the patient with serial abdominal exams and abdominal films. Would consider SBFT to further assess obstruction and previously mentioned stricture. Thank you for allowing me to see the patient in consultation and we will continue to follow along with you. (2) Crohn's disease: Qualifiers: Digestive disease complication type: other complication Gastrointestinal tract location: unspecified location Qualified Code(s): K50.918 - Crohn's disease, unspecified, with other complication Code(s): K50.90 - Crohn's disease, unspecified, without complications Status: Chronic Assessment and Plan: May benefit from steroids. Management per GI, who has been consulted. Has not been established with a inside sales advisor in this area since moving here a few months ago. (3) GERD with esophagitis: Code(s): K21.0 - Gastro-esophageal reflux disease with esophagitis Status: Chronic (4) Anemia: Qualifiers: Anemia type: unspecified type Qualified Code(s): D64.9 - Anemia, unspecified Code(s): D64.9 - Anemia, unspecified Status: Chronic (5) Morbid obesity with BMI of 45.0-49.9, adult: Code(s): E66.01 - Morbid (severe) obesity due to excess calories; Z68.42 - Body mass index (BMI) 45.0-49.9, adult Status: Acute Additional Plan Discussed the patient's case and formulated plan of care with Dr. Rainey. History of Present Illness Consult details Consult date: 06/11/20 Reason for consult: other (Small-bowel wall thickening noted on CT with partial small-bowel obstruction) Requesting physician: Sondra Marcial PA-C Narrative: This is a 39-year-old female with known Crohn's disease, who presented to the emergency department with complaints of abdominal pain, nausea, and vomiting. The patient was recently admitted to [facility] for cellulitis of her panniculus from 12/18/19-12/22/19 and was discharged home with oral doxycycline through 01/15/2020. She apparently was doing well for the first few days after discharge, and then had a sudden onset of abdominal pain associated with nausea and vomiting about 2 days ago. She reports that her typical bowel movements are more than 5 loose bowel movements daily and she had noticed that they started to get more hard last week due to taking pain medication for the cellulitis. Her last BM was 2 days ago. Since then, she has not been passing any gas. She also put herself on bowel rest when symptoms presented. She has continued to vomit multiple times throughout the day yesterday and her pain had not improved. Since the symptoms were unrelenting, she decided to present to the emergency department for further evaluation. CT scan of the abdomen and pelvis showed wall thickening of the ileum, consistent with enteritis, and dilation of multiple loops of jejunum and ileum, consistent with an ileus versus partial small-bowel obstruction. Labs revealed a normal white blood cell count of 9800. The patient was admitted to the hospitalist service and started on
--- NOTE | 2019-12-26 10:47 | WPDGICN ---
Assessment and Plan Assessment and plan (1) Partial small bowel obstruction: Code(s): K56.600 - Partial intestinal obstruction, unspecified as to cause Status: Acute Assessment and Plan: X-rays suggest partial small-bowel obstruction likely from Crohn's disease in the distal small bowel. Plan is for a small bowel series. Advanced to a low residue diet. We will continue treatment with the Imuran. Consider intravenous steroids for the immediate future. (2) Crohn's disease: Qualifiers: Gastrointestinal tract location: unspecified location Digestive disease complication type: other complication Qualified Code(s): K50.918 - Crohn's disease, unspecified, with other complication Code(s): K50.90 - Crohn's disease, unspecified, without complications Status: Chronic Assessment and Plan: Crohn's disease diagnosed in [facility]. Plan is to request old records. Continue Imuran at the present time dose will need to be adjusted. Steroids to be given during this hospital stay in tapered quickly. We may also consider Pentasa. Patient apparently unable to afford biologic agents. (3) Morbid obesity with BMI of 45.0-49.9, adult: Code(s): E66.01 - Morbid (severe) obesity due to excess calories; Z68.42 - Body mass index (BMI) 45.0-49.9, adult Status: Acute (4) Infected prosthetic mesh of abdominal wall: Qualifiers: Encounter type: initial encounter Qualified Code(s): T85.79XA - Infection and inflammatory reaction due to other internal prosthetic devices, implants and grafts, initial encounter Code(s): T85.79XA - Infection and inflammatory reaction due to other internal prosthetic devices, implants and grafts, initial encounter Status: Acute GI Consult Note Consult date/time: 12/26/19 10:47 HPI: Roma Rowan is a 39 year old female seen in evaluation at the request of the hospitalist service. Patient followed in [facility] until recently moving to this area. She was hospitalized at [facility] 1 week ago with cellulitis in the abdomen. This was a attributed to infection associated with ventral hernia mesh repair. This is improved. She began to develop rather severe abdominal pain and cramping prompting her to go to the emergency room. CT scan suggest partial small-bowel obstruction. Patient has a history of 10 year history of intermittent abdominal pain nausea vomiting and diarrhea. She states 6 months ago this was finally diagnosed as being from Crohn's disease. She apparently has had an extensive workup including multiple colonoscopies including 1 1 year ago that was reported to be negative. She had a small bowel series small bowel balloon enteroscopy IBD serology and additional workup the results of which are not immediately available. It was felt that she has Crohn's disease. Current medications include only Imuran 50 mg p.o. daily. She apparently will considered biologic agents but insurance did not cover these medications. She states that she was on steroids briefly at the last flare up of her condition 6 months ago. Family history is noncontributory. Patient reports that her last bowel movement was 1-1/2 days ago. She has never had a particularly restricted diet. Current medications include omeprazole and now Imuran 50 mg p.o. daily. Review of Systems Review of Systems: All systems reviewed & are unremarkable except as noted in HPI and below PMFSH Past Medical History Medical History Crohn's disease GERD with esophagitis Small bowel obstruction Surgical History Surgical History H/O hernia repair Laparoscopic ventral hernia repair with mesh History of appendectomy Appendix removed during 2nd exploratory laparotomy. History of cholecystectomy History of exploratory laparotomy Has had what sounds like an exploratory l
--- NOTE | 2019-12-26 11:15 | PM.IMPN ---
Progress Note: A&P Assessment and Plan (1) Partial small bowel obstruction: Code(s): K56.600 - Partial intestinal obstruction, unspecified as to cause Status: Acute Assessment and Plan: Patient has a long history of bowel obstructions in the past along with to laparoscopic surgeries. At this time the patient is not having any vomiting and would not like an NG tube placed. Will continue with Bowel rest, NPO, Pain control as needed and IV hydration. General surgery and GI has been consulted by ER provider and evaluated the patient who recommends to continue monitoring the patient and ordered a small-bowel follow-through. Continue monitoring patient's symptoms and input from surgery and GI is greatly appreciated (2) Enteritis: Code(s): K52.9 - Noninfective gastroenteritis and colitis, unspecified Status: Acute Assessment and Plan: May be viral in origin. Will continue with Bowel rest. NPO. Pain control as needed. IV pantoprazole twice a day Continue GI recommendations. (3) Crohn's disease: Qualifiers: Gastrointestinal tract location: unspecified location Digestive disease complication type: other complication Qualified Code(s): K50.918 - Crohn's disease, unspecified, with other complication Code(s): K50.90 - Crohn's disease, unspecified, without complications Status: Chronic Assessment and Plan: Acute on Chronic. Patient is new to the area does not have a GI doctor at this time. GI has been consulted by ER provider and Dr. Paz evaluated the patient and started her on IV Solu-Medrol, increased her azathioprine to 100 mg daily and ordered a small-bowel follow-through. Continue monitoring the patient's symptoms. Continue GI recommendations. (4) Anemia: Qualifiers: Anemia type: unspecified type Qualified Code(s): D64.9 - Anemia, unspecified Code(s): D64.9 - Anemia, unspecified Status: Chronic Assessment and Plan: Likely multifactorial. Hemoglobin on arrival was 11.6 and today it decreased to 9.6. Could be dilutional in origin. Will also order iron panel, B12, folic acid. No signs of acute blood loss. Monitor H/H, transfuse prn. (5) GERD with esophagitis: Code(s): K21.0 - Gastro-esophageal reflux disease with esophagitis Status: Chronic Assessment and Plan: PPI therapy IV. (6) Abdominal wall cellulitis: Code(s): L03.311 - Cellulitis of abdominal wall Status: Resolved Assessment and Plan: Now resolved on examination. Will continue home antibiotics, doxycycline IV at this time and switch to p.o. once stable. Continue monitoring cellulitis. 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 Additional Plan Time Spent With Patient Time with patient: 25 - 35 minutes Subjective Date/time seen: 12/26/19 11:15 Interval history: Date of service 12/26/2019: Patient reports having 6/10 pain to her bilateral upper quadrants at this time. It is reported as an intermittent cramping discomfort. She reports some slightly relief with morphine in the past Dilaudid has worked better. She does report intermittent nausea associated with the pain denies any vomiting today. She denies much flatulence. She denies any fevers, chills, chest pain, shortness of breath, cough, leg swelling, calf pain, or any other symptoms at this time. Review of Systems Review of Systems: All systems reviewed & are unremarkable except as noted in HPI and below Exam Narrative: Exam Narr
[2019-12-26] MEDS: AZATHIOPRINE 50 MG TABLET 100 MG PO (11:22)
[2019-12-26 12:05] LABS: Transferrin 349 mg/dL (206-381)
[2019-12-26] MEDS: PANTOPRAZOLE SODIUM IV 40 MG VIAL IV PUSH ×2 (12:16→20:26)
[2019-12-26] MEDS: HYDROMORPHONE HCL 1 MG/ML INJ IV PUSH ×4 (12:18→20:32)
[2019-12-26 12:23] LABS: Iron 35 ug/dL (37-170)
[2019-12-26 12:33] LABS: Percent Iron Saturation 8 % (20-50)
[2019-12-26 13:04] LABS: Folic Acid 7.6 ng/mL (2.76->20)
[2019-12-26] MEDS: methylPREDNISolone SOD SUCC 40 MG VIAL IV PUSH ×2 (13:50→20:26)
[2019-12-26 14:00] VITALS: BP 132/67; PULSE 72; RESP 15; TEMP 36.7; O2SAT 99
[2019-12-26 20:00] VITALS: PULSE 72; RESP 15; O2SAT 99
[2019-12-26 22:00] VITALS: BP 151/82; PULSE 60; RESP 20; TEMP 35.4; O2SAT 100
[2019-12-27] MEDS: HYDROMORPHONE HCL 1 MG/ML INJ IV PUSH ×6 (00:04→22:47)
[2019-12-27] MEDS: methylPREDNISolone SOD SUCC 40 MG VIAL IV PUSH (05:54)
[2019-12-27] MEDS: SODIUM CHLORIDE 0.9% IV 1,000 ML 125 ML IV CONT ×2 (05:54→20:37)
[2019-12-27 06:00] VITALS: BP 156/87; PULSE 82; RESP 20; TEMP 36.4; O2SAT 99
[2019-12-27 06:12] LABS: Hematocrit 36.9 % (37.0-47.0); Hemoglobin 10.9 g/dL (12.0-15.0); Immature Granulocyte Absolute 0.04 K/mm3 (0.00-0.031); Immature Granulocyte Percent A 0.6 % (0-0.5); Lymphocytes Absolute Auto 0.56 K/mm3 (0.9-3.2); Lymphocytes Percent Auto 8.4 % (18.3-44.2); Mean Corpuscular HGB Conc 29.5 g/dl (32-36); Mean Corpuscular Hemoglobin 24.1 pg (26-34); Mean Corpuscular Volume 81.6 fl (80-100); Mean Platelet Volume 9.1 fl (7.4-10.4); Monocytes Absolute Auto 0.1 K/mm3 (0.1-0.6); Monocytes Percent Auto 0.9 % (2.6-8.5); Neutrophils Percent Auto 90.1 % (45.5-73.1); Platelet Count Result 309 k/mm3 (150-375); Red Blood Count 4.52 M/mm3 (4.2-5.4); Red Cell Distribution Width 20.7 % (11.5-14.5); White Blood Count 6.6 K/mm3 (4.5-10.0)
[2019-12-27 06:24] LABS: Alanine Aminotransferase 44 U/L (4-35); Albumin Level 4.7 g/dL (3.5-5.1); Alkaline Phosphatase 77 U/L (38-126); Aspartate Amino Transferase 34 U/L (14-36); Bilirubin,Total 0.5 mg/dL (0.2-1.3); Blood Urea Nitrogen 11 mg/dL (7-17); Carbon Dioxide 24 mmol/L (22-30); Chloride 103 mmol/L (98-107); Estimated CRCL calculation 159 ml/min; Estimated Glomerular Filt Rate > 60; Glucose 120 mg/dL (65-105); Potassium 3.9 mmol/L (3.4-5.0); Sodium 136 mmol/L (137-145)
--- NOTE | 2019-12-27 07:55 | PC.NURSE ---
pt off floor to xray
[2019-12-27 08:03] LABS: IFOB Positive Control Positive; Immunochemical Fecal Occult Bl Negative (N)
--- NOTE | 2019-12-27 11:13 | WPDGIPROGNO ---
Progress Note: A&P Additional Plan Patient alert and comfortable this morning. Passed bowel movement. Then states abdominal pain is lessened to a great degree. Physical exam reveals Vital Signs to be stable. HEENT exam unremarkable. Lungs are clear. Heart without murmur. Abdomen is obese. Bowel sounds are present soft nontender with no organomegaly. No evidence for tympany on exam. Digital external rectal exam normal. Labs reveal hemoglobin 10.9, hematocrit 36.9, iron indices consistent with iron deficiency. LFTs markedly improved. Impression 1. Partial small-bowel obstruction. This appears to be resolving. Plan is to allow liquid diet. GI series to be performed today including small-bowel follow-through. 2. Crohn's disease. She has had this diagnosis historically. Plan is to taper off IV steroids and begin oral prednisone. Continue Imuran. Add Pentasa. Await results with small-bowel follow-through. If diet tolerated we will start with clear liquids and advance to a low residue diet. Subjective Date/time seen: 12/27/19 11:13 Objective Data Vital Signs Vital Signs: Vital Signs - 24 hr 12/26/19 14:00 12/26/19 20:00 12/26/19 22:00 Temperature 36.7 C 35.4 C L Pulse Rate 72 72 60 Respiratory Rate 15 15 20 Blood Pressure 132/67 151/82 H Pulse Oximetry 99 99 100 12/27/19 06:00 Temperature 36.4 C L Pulse Rate 82 Respiratory Rate 20 Blood Pressure 156/87 H Pulse Oximetry 99 Intake/Output Intake/Output: Intake & Output 12/24/19 12/25/19 12/26/19 12/27/19 23:59 23:59 23:59 23:59 Intake Total 1100 2300 1000 Output Total 775 600 Balance 1100 1525 400 Meds/Results Medications: Active Medications Generic Name Dose Route Start Last Admin Trade Name Freq PRN Reason Stop Dose Admin Azathioprine 100 mg 12/26/19 09:00 12/26/19 11:22 Imuran PO 100 mg DAILY PAULA Administration Hydromorphone HCl 0.5 mg 12/26/19 11:22 Dilaudid Inj IV PUSH Q3H PRN Pain Rated 4-6 Hydromorphone HCl 1 mg 12/26/19 11:22 12/27/19 07:51 Dilaudid Inj IV PUSH 1 mg Q3H PRN Administration Pain Rated 7-10 Sodium Chloride 1,000 mls @ 125 mls/hr 12/25/19 22:05 12/27/19 05:54 Normal Saline Iv IV CONT 125 mls/hr .Q8H PAULA Administration Doxycycline Hyclate 100 mg/ 100 mls @ 100 mls/hr 12/26/19 11:30 12/26/19 21:26 Dextrose IVPB Infused Q12HR PAULA Infusion Iron Sucrose 300 mg/ Sodium 115 mls @ 76.667 mls/hr 12/27/19 09:00 Chloride IVPB 12/30/19 09:01 QAM PAULA Methylprednisolone Sodium Succinate 40 mg 12/26/19 14:00 12/27/19 05:54 Solu-Medrol IV PUSH 40 mg Q8HR PAULA Administration Ondansetron HCl 4 mg 12/25/19 22:01 12/26/19 19:46 Zofran Inj IV PUSH 4 mg Q4H PRN Administration Nausea Pantoprazole Sodium 40 mg 12/26/19 11:25 12/26/19 20:26 Protonix Iv IV PUSH 40 mg Q12HR PAULA Administration Promethazine HCl 12.5 mg 12/26/19 11:21 Phenergan Inj IV PUSH Q4H PRN Nausea And Vomiting Radiology Results: ITS Impressions Abdomen/Pelvis CT 12/25/19 20:36 IMPRESSION: 1. New wall thickening of ileum, consistent with enteritis. 2. New dilatation of multiple loops of jejunum and ileum, consistent with adynamic ileus versus partial small bowel obstruction. 3. 10 mm left adrenal mass. In the absence of known malignancy, this finding is likely an adenoma. Labs Labs: Laboratory Results - last 24 hr 12/26/19 12/26/19 12/26/19 10:52 11:36 11:36 WBC RBC Hgb Hct MCV MCH MCHC RDW Plt Count MPV Immature Gran % (Auto) Neut % (Auto) Lymph % (Auto) [place] % (Auto) Eos % (Auto) Baso % (Auto) Lymph # (Auto) [place] # (Auto) Eos # (Auto) Baso # (Auto) Abs Immat Gran (auto) Absolute Neuts (auto) Absolute Nucleated RBC Nucleated RBC % Sodium Potassium Chloride Carbon Dioxide BUN Creatinine E
[2019-12-27] MEDS: PANTOPRAZOLE SODIUM IV 40 MG VIAL IV PUSH ×2 (11:32→20:20)
--- NOTE | 2019-12-27 13:18 | PM.PNGS ---
Progress Note: A&P Assessment and Plan (1) Partial small bowel obstruction: Code(s): K56.600 - Partial intestinal obstruction, unspecified as to cause Status: Acute Assessment and Plan: improved, await SBFT, if ok ADAT, no acute surgical issues at this point (2) Crohn's disease: Qualifiers: Gastrointestinal tract location: unspecified location Digestive disease complication type: other complication Qualified Code(s): K50.918 - Crohn's disease, unspecified, with other complication Code(s): K50.90 - Crohn's disease, unspecified, without complications Status: Chronic Assessment and Plan: cont steroids per GI, cont maintainence meds Subjective Subjective Date/Time Seen: 12/27/19 13:18 Pt feels a little better today. She is currently still getting SBFT. Pt bob clears prior to test. Pt c some mild abd pain, much improved. Pt having bowel fxn. Review of Systems Constitutional: Constitutional: Denies fatigue, Denies lethargy and Denies weakness Cardiovascular: Cardiovascular: Denies chest pain and Denies palpitations Respiratory: Respiratory: Denies dyspnea Gastrointestinal: Gastrointestinal: Reports abdominal pain, Denies constipation, Denies diarrhea, Reports nausea and Denies vomiting Exam Const: General: no acute distress Resp: Auscultation: clear to auscultation bilaterally Cardio: Rate: regular rate Rhythm: regular rhythm GI: Other: S, sl dist, minimal TTP, no peritoneal signs Objective Data Vital Signs Vital Signs: Vital Signs - 24 hr 12/26/19 14:00 12/26/19 20:00 12/26/19 22:00 Temperature 36.7 C 35.4 C L Pulse Rate 72 72 60 Respiratory Rate 15 15 20 Blood Pressure 132/67 151/82 H Pulse Oximetry 99 99 100 12/27/19 06:00 Temperature 36.4 C L Pulse Rate 82 Respiratory Rate 20 Blood Pressure 156/87 H Pulse Oximetry 99 Intake/Output Intake/Output: Intake & Output 12/24/19 12/25/19 12/26/19 12/27/19 23:59 23:59 23:59 23:59 Intake Total 1100 2300 1100 Output Total 775 600 Balance 1100 1525 500 Meds/Results Medications: Active Medications Generic Name Dose Route Start Last Admin Trade Name Freq PRN Reason Stop Dose Admin Azathioprine 100 mg 12/26/19 09:00 12/26/19 11:22 Imuran PO 100 mg DAILY PAULA Administration Hydromorphone HCl 0.5 mg 12/26/19 11:22 Dilaudid Inj IV PUSH Q3H PRN Pain Rated 4-6 Hydromorphone HCl 1 mg 12/26/19 11:22 12/27/19 11:28 Dilaudid Inj IV PUSH 1 mg Q3H PRN Administration Pain Rated 7-10 Sodium Chloride 1,000 mls @ 125 mls/hr 12/25/19 22:05 12/27/19 05:54 Normal Saline Iv IV CONT 125 mls/hr .Q8H PAULA Administration Doxycycline Hyclate 100 mg/ 100 mls @ 100 mls/hr 12/26/19 11:30 12/27/19 12:31 Dextrose IVPB Infused Q12HR PAULA Infusion Iron Sucrose 300 mg/ Sodium 115 mls @ 76.667 mls/hr 12/27/19 09:00 12/27/19 13:09 Chloride IVPB 12/30/19 09:01 76.7 mls/hr QAM PAULA Administration Mesalamine 1,000 mg 12/27/19 13:00 Pentasa PO QID PAULA Ondansetron HCl 4 mg 12/25/19 22:01 12/26/19 19:46 Zofran Inj IV PUSH 4 mg Q4H PRN Administration Nausea Pantoprazole Sodium 40 mg 12/26/19 11:25 12/27/19 11:32 Protonix Iv IV PUSH 40 mg Q12HR PAULA Administration Prednisone 40 mg 12/28/19 08:00 Prednisone PO DAILY@0800 PAULA Promethazine HCl 12.5 mg 12/26/19 11:21 Phenergan Inj IV PUSH Q4H PRN Nausea And Vomiting Radiology Results: ITS Impressions Abdomen/Pelvis CT 12/25/19 20:36 IMPRESSION: 1. New wall thickening of ileum, consistent with enteritis. 2. New dilatation of multiple loops of jejunum and ileum, consistent with adynamic ileus versus partial small bowel obstruction. 3. 10 mm left adrenal mass. In the absence of known malignancy, this finding is likely an adenoma. Labs Labs: Laboratory Results - last 24 hr 12/26/19 12/27/19 12/27/19 10:52 0
[2019-12-27] MEDS: AZATHIOPRINE 50 MG TABLET 100 MG PO (13:47)
[2019-12-27] MEDS: MESALAMINE 250 MG CAP CR 1000 MG PO ×3 (13:47→20:20)
[2019-12-27 14:00] VITALS: BP 167/87; PULSE 75; RESP 19; TEMP 36.4; O2SAT 100
--- NOTE | 2019-12-27 15:24 | PM.IMPN ---
Progress Note: A&P Assessment and Plan (1) Partial small bowel obstruction: Code(s): K56.600 - Partial intestinal obstruction, unspecified as to cause Status: Acute Assessment and Plan: Patient has a long history of bowel obstructions in the past along with to laparoscopic surgeries. Patient is feeling much better today and is passing gas and have bowel movement. She is on a clear liquid diet at this time and will advance as recommended by GI and surgery. Small-bowel follow-through shows delayed transit of contrast in the colon requiring 4.5 hours without evident transition point to suggest obstruction and likely related to ileus./mucosal fold thickening previously seen to the mid and distal small bowel which may be related to history of Crohn's disease or more likely infectious enteritis given its rapid resolution. Short-segment of relative luminal narrowing in the sigmoid colon which may be artifact of incomplete distension or strictures related to chronic Crohn's disease. Continue monitoring patient's symptoms and input from surgery and GI is greatly appreciated (2) Crohn's disease: Qualifiers: Digestive disease complication type: other complication Gastrointestinal tract location: unspecified location Qualified Code(s): K50.918 - Crohn's disease, unspecified, with other complication Code(s): K50.90 - Crohn's disease, unspecified, without complications Status: Chronic Assessment and Plan: Acute on Chronic. Patient is new to the area does not have a GI doctor at this time. GI has been consulted by ER provider and Dr. Paz evaluated the patient and started her on IV Solu-Medrol, increased her azathioprine to 100 mg daily Patient is feeling much better after steroids and medications. Continue monitoring the patient's symptoms. Continue GI recommendations. (3) Enteritis: Code(s): K52.9 - Noninfective gastroenteritis and colitis, unspecified Status: Acute Assessment and Plan: May be viral in origin. Patient is feeling much better today IV pantoprazole twice a day Continue GI recommendations. (4) Anemia: Qualifiers: Anemia type: unspecified type Qualified Code(s): D64.9 - Anemia, unspecified Code(s): D64.9 - Anemia, unspecified Status: Chronic Assessment and Plan: Likely multifactorial. Hemoglobin on arrival was 11.6 and today it is stable at 10.9. Could be dilutional in origin. Iron panel is consistent with iron deficiency anemia with a low saturation of 8%. She was given IV Venofer x3 Will be discharged on very sulfate and follow-up with her primary care provider. No signs of acute blood loss. Monitor H/H, transfuse prn. (5) GERD with esophagitis: Code(s): K21.0 - Gastro-esophageal reflux disease with esophagitis Status: Chronic Assessment and Plan: PPI therapy IV. (6) Abdominal wall cellulitis: Code(s): L03.311 - Cellulitis of abdominal wall Status: Resolved Assessment and Plan: Now resolved on examination. Will continue home antibiotics, doxycycline IV at this time and switch to p.o. once stable. Continue monitoring cellulitis. 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 Additional Plan Time Spent With Patient Time with patient: 25 - 35 minutes Subjective Date/time seen: 12/27/19 15:24 Interval history: Date of service 12/27/2019: Patient reports much improved pain since yesterday evening. Sh
[2019-12-27 22:00] VITALS: BP 152/69; PULSE 69; RESP 20; TEMP 36.8; O2SAT 100
[2019-12-28] MEDS: SODIUM CHLORIDE 0.9% IV 1,000 ML 125 ML IV CONT (05:29)
[2019-12-28 06:00] VITALS: BP 111/70; PULSE 78; RESP 18; TEMP 36.2; O2SAT 97
--- NOTE | 2019-12-28 07:46 | WPDGIPROGNO ---
Progress Note: A&P Additional Plan Patient alert and comfortable this morning. Denies abdominal pain. Passing stools. Tolerating diet. Physical exam reveals patient be alert. Vital signs stable. She is afebrile. Abdomen is obese. Bowel sounds are present soft nontender. Small-bowel follow-through reveals nonspecific findings. Previous stricture now described as a narrowing. This could represent stricture ring versus spasm versus adhesions possible. Infection not excluded. Labs reveal hemoglobin 10.9, hematocrit 36.9, MCV 81. Iron deficient indices. Impression 1. Resolved partial small bowel obstruction. 2. Crohn's disease by history. Still waiting confirmatory labs. Workup was in [facility]. Plan is to taper dose of oral steroids as an outpatient. Continue Imuran as an outpatient and Pentasa if insurance will cover it. I anticipate seen patient in the office in several weeks. 3. Obesity. This is unusual for some by with Crohn's disease. 4. Ventral hernia status post mesh repair. Now resolving cellulitis. Complete course of antibiotics. This could be an etiology for potential adhesions contributing to her recent partial small-bowel obstruction. Plan is for low residue diet. Discharge with tapering dose of steroids. Continue Imuran as an outpatient. Follow up in the office in several weeks. Subjective Date/time seen: 12/28/19 07:46 Objective Data Vital Signs Vital Signs: Vital Signs - 24 hr 12/27/19 14:00 12/27/19 22:00 12/28/19 06:00 Temperature 36.4 C L 36.8 C 36.2 C L Pulse Rate 75 69 78 Respiratory Rate 19 20 18 Blood Pressure 167/87 H 152/69 H 111/70 Pulse Oximetry 100 100 97 Intake/Output Intake/Output: Intake & Output 12/25/19 12/26/19 12/27/19 12/28/19 23:59 23:59 23:59 23:59 Intake Total 1100 2300 2895 1100 Output Total 775 1500 300 Balance 1100 1525 1395 800 Meds/Results Medications: Active Medications Generic Name Dose Route Start Last Admin Trade Name Freq PRN Reason Stop Dose Admin Acetaminophen 650 mg 12/28/19 07:03 Tylenol Tablet PO Q4H PRN pain 1-3 Hydrocodone Bitart/Acetaminophen 1 tab 12/28/19 07:04 [place] 5-325 Mg PO Q4H PRN Pain Rated 4-6 Hydrocodone Bitart/Acetaminophen 2 tab 12/28/19 07:04 [place] 5-325 Mg PO Q4H PRN Pain Rated 7-10 Azathioprine 100 mg 12/26/19 09:00 12/27/19 13:47 Imuran PO 100 mg DAILY PAULA Administration Hydromorphone HCl 0.5 mg 12/28/19 07:04 Dilaudid Inj IV PUSH Q3H PRN Pain Rated 7-10 Doxycycline Hyclate 100 mg/ 100 mls @ 100 mls/hr 12/26/19 11:30 12/27/19 23:30 Dextrose IVPB Infused Q12HR PAULA Infusion Iron Sucrose 300 mg/ Sodium 115 mls @ 76.667 mls/hr 12/27/19 09:00 12/27/19 14:39 Chloride IVPB 12/30/19 09:01 Infused QAM PAULA Infusion Mesalamine 1,000 mg 12/27/19 13:00 12/27/19 20:20 Pentasa PO 1,000 mg QID PAULA Administration Ondansetron HCl 4 mg 12/25/19 22:01 12/26/19 19:46 Zofran Inj IV PUSH 4 mg Q4H PRN Administration Nausea Pantoprazole Sodium 40 mg 12/26/19 11:25 12/27/19 20:20 Protonix Iv IV PUSH 40 mg Q12HR PAULA Administration Prednisone 40 mg 12/28/19 08:00 Prednisone PO DAILY@0800 PAULA Promethazine HCl 12.5 mg 12/26/19 11:21 Phenergan Inj IV PUSH Q4H PRN Nausea And Vomiting Radiology Results: ITS Impressions Abdomen/Pelvis CT 12/25/19 20:36 IMPRESSION: 1. New wall thickening of ileum, consistent with enteritis. 2. New dilatation of multiple loops of jejunum and ileum, consistent with adynamic ileus versus partial small bowel obstruction. 3. 10 mm left adrenal mass. In the absence of known malignancy, this finding is likely an adenoma. Upper GI and Small Bowel X-Ray 12/27/19 13:56 IMPRESSION: 1. Delayed transit of contrast in the colon requiring 4.5 hours without evident transition point to suggest obstruction and likely related to ileu
[2019-12-28 08:08] LABS: Basophils Percent Auto 0.2 % (0.2-1.2); Hemoglobin 9.5 g/dL (12.0-15.0); Immature Granulocyte Absolute 0.06 K/mm3 (0.00-0.031); Immature Granulocyte Percent A 0.5 % (0-0.5); Lymphocytes Absolute Auto 2.22 K/mm3 (0.9-3.2); Mean Corpuscular HGB Conc 30.6 g/dl (32-36); Mean Corpuscular Hemoglobin 24.5 pg (26-34); Mean Corpuscular Volume 79.9 fl (80-100); Mean Platelet Volume 9.8 fl (7.4-10.4); Monocytes Absolute Auto 0.5 K/mm3 (0.1-0.6); Monocytes Percent Auto 4.7 % (2.6-8.5); Neutrophils Absolute Auto 8.3 K/mm3 (1.3-6.7); Neutrophils Percent Auto 74.6 % (45.5-73.1); Platelet Count Result 311 k/mm3 (150-375); Red Blood Count 3.88 M/mm3 (4.2-5.4); Red Cell Distribution Width 20.7 % (11.5-14.5); White Blood Count 11.1 K/mm3 (4.5-10.0)
[2019-12-28 08:21] LABS: Blood Urea Nitrogen 14 mg/dL (7-17); Calcium 8.7 mg/dL (8.4-10.2); Carbon Dioxide 23 mmol/L (22-30); Chloride 105 mmol/L (98-107); Estimated CRCL calculation 159 ml/min; Estimated Glomerular Filt Rate > 60; Glucose 103 mg/dL (65-105); Magnesium 1.6 mg/dL (1.6-2.3); Potassium 3.2 mmol/L (3.4-5.0); Sodium 135 mmol/L (137-145)
[2019-12-28] MEDS: MESALAMINE 250 MG CAP CR 1000 MG PO ×2 (09:36→12:57)
[2019-12-28] MEDS: PANTOPRAZOLE SODIUM IV 40 MG VIAL IV PUSH (09:37)
[2019-12-28] MEDS: AZATHIOPRINE 50 MG TABLET 100 MG PO (09:37)
[2019-12-28] MEDS: predniSONE 20 MG TABLET PO (09:37)
--- NOTE | 2019-12-28 10:18 | PM.DS ---
DS: Admitting Diagnosis Admitting Diagnosis Admitting Diagnosis: Partial intestinal obstruction, unspecified as to cause DS: Discharge Diagnosis Discharge Diagnosis (1) Partial small bowel obstruction: Code(s): K56.600 - Partial intestinal obstruction, unspecified as to cause Status: Acute Assessment and Plan: Patient has a long history of bowel obstructions in the past along with to laparoscopic surgeries. Patient is feeling much better today and is passing gas and have bowel movement. She is tolerating a low residual diet without any issues at this time. Small-bowel follow-through shows delayed transit of contrast in the colon requiring 4.5 hours without evident transition point to suggest obstruction and likely related to ileus./mucosal fold thickening previously seen to the mid and distal small bowel which may be related to history of Crohn's disease or more likely infectious enteritis given its rapid resolution. Short-segment of relative luminal narrowing in the sigmoid colon which may be artifact of incomplete distension or strictures related to chronic Crohn's disease. GI evaluated the patient this morning feels she is stable to be discharged home and follow-up with him in a few weeks. (2) Crohn's disease: Qualifiers: Digestive disease complication type: other complication Gastrointestinal tract location: unspecified location Qualified Code(s): K50.918 - Crohn's disease, unspecified, with other complication Code(s): K50.90 - Crohn's disease, unspecified, without complications Status: Chronic Assessment and Plan: Acute on Chronic. Patient is new to the area does not have a GI doctor at this time. Dr. Paz evaluated the patient this morning and feels like she is stable for discharge to continued a prednisone taper, azathioprine to 100 mg daily, Pentasa 1000 mg QID and to follow-up in the office in a few weeks. She will continue a low residual diet Patient understands and agrees the plan all questions answered. (3) Enteritis: Code(s): K52.9 - Noninfective gastroenteritis and colitis, unspecified Status: Acute Assessment and Plan: May be viral in origin. Patient is feeling much better today Continue her PPI at home (4) Anemia: Qualifiers: Anemia type: unspecified type Qualified Code(s): D64.9 - Anemia, unspecified Code(s): D64.9 - Anemia, unspecified Status: Chronic Assessment and Plan: Likely multifactorial. Hemoglobin on arrival was 11.6 and today it is stable at 10.9. Could be dilutional in origin. Iron panel is consistent with iron deficiency anemia with a low saturation of 8%. She was given IV Venofer x3 Will be discharged on ferrous sulfate and follow-up with her primary care provider. Check CBC in 1 week (5) GERD with esophagitis: Code(s): K21.0 - Gastro-esophageal reflux disease with esophagitis Status: Chronic Assessment and Plan: PPI therapy IV. (6) Abdominal wall cellulitis: Code(s): L03.311 - Cellulitis of abdominal wall Status: Resolved Assessment and Plan: Now resolved on examination. Will continue home antibiotics, doxycycline which was prescribed for 24 days. Her last dose will be on January 13. 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 (8) Hypokalemia: Code(s): E87.6 - Hypokalemia Status: Acute Assessment and Plan: Patient's potassium was 3.2 rosa daniels
[2019-12-28] MEDS: MAGNESIUM OXIDE 400 MG TABLET PO (10:36)
[2019-12-28] MEDS: POTASSIUM CHLORIDE 20 MEQ TABLET 40 MEQ PO (10:52)
[2020-01-01 11:21] LABS: ANCA Screen Negative (Negative); Myeloperoxidase Ab <1.0 AI (<1.0); Proteinase-3 Ab <1.0 AI (<1.0); S cerevisiae Ab (IgA) 16.5 U (<=20.0); S cerevisiae Ab (IgG) 10.5 U (<=20.0)
== END 2019-12-28 14:00 | disposition home or self-care (01) | DRG 245 ==
LOC: ANHED 21:16 → ANH2MED 22:09
PROVIDERS: Emergency Medicine; Internal Medicine Gastroenterology; Physician Assistant; Admitting Provider Family Medicine; Emergency Provider Emergency Medicine; Visit Provider Family Medicine
DX: K50.012 Crohn's disease of small intestine with intestinal obstruction (principal); A08.4 Viral intestinal infection, unspecified; D50.9 Iron deficiency anemia, unspecified; K21.0 Gastro-esophageal reflux disease with esophagitis; L03.311 Cellulitis of abdominal wall; E27.8 Other specified disorders of adrenal gland; E87.6 Hypokalemia; E83.42 Hypomagnesemia; E66.01 Morbid (severe) obesity due to excess calories; Z68.42 Body mass index [BMI] 45.0-49.9, adult; Z90.49 Acquired absence of other specified parts of digestive tract; Z87.891 Personal history of nicotine dependence
CPT/HCPCS: 36415; 74177; 74246; 74248; 80048; 80053; 81001; 81025; 82274; 82607; 82728; 82746; 83540; 83550; 83690; 83735; 84466; 85025; 86021; 86671; 96361; 96374; 96375; 96376; 99285; A9270; C9113; G0378; G0379; J0131; J1170; J1756; J2270; J2405; J2920; J7030; J7512; Q9967

== ENCOUNTER 2020-03-10 14:45 | Outpatient (CLI) | payer OTHER, SELFPAY ==
--- NOTE | ~2020-03-10 | US_ITS ---
EXAMINATION: US pelvic complete w TV DATE: 03/10/2020 15:42 INDICATION: Vaginal bleeding Comparison:No prior studies for comparison. TECHNIQUE: Multiple transabdominal and endovaginal sonographic images of the pelvis performed. FINDINGS: The uterus measures 8.5 x 4.7 x 4.8 cm. The endometrial complex measures 9 mm. The ovaries are not visualized. There is no free fluid in the pelvis. There are no abnormal masses seen on either side. IMPRESSION: 1. Unremarkable pelvic ultrasound. Reviewed, dictated and finalized at location A.
== END 2020-03-10 14:46 | disposition home or self-care (01) ==
LOC: ANHIMG 14:55
PROVIDERS: PCP Family Medicine; Visit Provider Family Medicine
DX: N93.9 Abnormal uterine and vaginal bleeding, unspecified (principal)
CPT/HCPCS: 76830; 76856

== ENCOUNTER 2020-04-15 18:05 | Emergency (ER) | payer OTHER, SELFPAY ==
--- NOTE | ~2020-04-15 | CT_ITS ---
EXAMINATION: CT abdomen pelvis w con DATE: 04/15/2020 19:43 INDICATION: Upper abdominal pain TECHNIQUE: Computed tomography (CT) of the abdomen and pelvis was performed with 100 mL Omnipaque-350 intravenous contrast. Automated exposure control and iterative reconstruction technique were employe d. The dose-length product was 1621.63 mGy-cm. COMPARISON: 12/25/2019 FINDINGS: Visualized lower lungs are clear. Heart size is normal. No pericardial or pleural effusion. Diffuse h epatic steatosis with more focal fat along the jaime hepatis. Cholecystectomy clips at the gallbladde r fossa. Spleen, pancreas, right kidney and right adrenal gland are normal. Unchanged 10 mm left adre nal nodule statistically most likely to represent an adenoma. Again seen are at least 6 stones in the left kidney the largest measuring up to 6 mm. No ureteral stones or hydronephrosis. Normal appendix. Again seen is wall thickening along a few fluid-filled but still normal caliber loops of small bowel in the lower abdomen consistent with known history of Crohn's disease. The more proximal and distal small bowel is relatively decompressed. No kellen or dilated bowel to suggest obstruction. Tampon with in the vaginal vault. Fibroid uterus. Bladder is normal. Trace amount of likely physiologic free flui d in the pelvis. No abscess or free intraperitoneal gas. Mild bilateral sacroiliac osteoarthritis. IMPRESSION: 1. Persistent wall thickening along several loops of small bowel in the lower abdomen consistent with known history of Crohn's disease. No frankly dilated bowel to suggest obstruction. 2. Nonobstructing right nephrolithiasis. Reviewed, dictated and finalized at location A. IMPRESSION: 1. Persistent wall thickening along several loops of small bowel in the lower a bdomen consistent with known history of Crohn's disease. No frankly dilated bow el to suggest obstruction. 2. Nonobstructing right nephrolithiasis.
[2020-04-15 18:07] VITALS: BP 167/100; PULSE 99; RESP 16; TEMP 36.2; O2SAT 99
[2020-04-15 18:40] LABS: Basophils Percent Auto 0.5 % (0.2-1.2); Eosinophils Absolute Auto 0.1 K/mm3 (0-0.3); Eosinophils Percent Auto 0.8 % (0-4.4); Hematocrit 41.1 % (37.0-47.0); Hemoglobin 13.1 g/dL (12.0-15.0); Immature Granulocyte Absolute 0.02 K/mm3 (0.00-0.031); Immature Granulocyte Percent A 0.2 % (0-0.5); Lymphocytes Absolute Auto 2.12 K/mm3 (0.9-3.2); Lymphocytes Percent Auto 24.7 % (18.3-44.2); Mean Corpuscular HGB Conc 31.9 g/dl (32-36); Mean Corpuscular Hemoglobin 27.4 pg (26-34); Mean Platelet Volume 10.4 fl (7.4-10.4); Monocytes Absolute Auto 0.4 K/mm3 (0.1-0.6); Monocytes Percent Auto 5.1 % (2.6-8.5); Neutrophils Absolute Auto 5.9 K/mm3 (1.3-6.7); Neutrophils Percent Auto 68.7 % (45.5-73.1); Platelet Count Result 279 k/mm3 (150-375); Red Blood Count 4.78 M/mm3 (4.2-5.4); Red Cell Distribution Width 16.5 % (11.5-14.5); White Blood Count 8.6 K/mm3 (4.5-10.0)
[2020-04-15 18:45] LABS: Add Urine Microscopic? YES; Appearance Urine Clear (Clear); Bilirubin Urine Negative (Negative); Blood Urine 3+ (Negative); Color Urine Yellow (Yellow); Glucose Urine UA Negative (Negative); Ketones Urine Negative (Negative); Leukocyte Esterase Ur Negative LEU/UL (Negative); Mucus Urine Few /lpf; Nitrate Urine Negative (Negative); Protein Urine Negative (Negative); RBC Urine 21-50 /hpf (0-2); Specific Grav Ur 1.015 (1.001-1.035); Squamous Epithelial Cell Urine Few /hpf (Few); Urobilinogen Urine Negative mg/dL (<2.0); WBC Urine 0-3 /hpf
[2020-04-15 18:52] LABS: Alanine Aminotransferase 49 U/L (4-35); Albumin Level 4.2 g/dL (3.5-5.1); Alkaline Phosphatase 81 U/L (38-126); Anion Gap 11 mmol/L (8-16); Aspartate Amino Transferase 46 U/L (14-36); Bilirubin,Total 0.6 mg/dL (0.2-1.3); Blood Urea Nitrogen 6 mg/dL (7-17); Calcium 9.5 mg/dL (8.4-10.2); Carbon Dioxide 25 mmol/L (22-30); Chloride 105 mmol/L (98-107); Estimated CRCL calculation 122 ml/min; Estimated Glomerular Filt Rate > 60; Glucose 104 mg/dL (65-105); Lipase 35 U/L (23-300); Potassium 4.3 mmol/L (3.4-5.0); Sodium 141 mmol/L (137-145)
--- NOTE | 2020-04-15 19:02 | ED.ABDPAIN ---
HPI - Abdominal Pain General Chief Complaint: Abdominal Pain Stated Complaint: abd pain, sbo hx Time Seen by Provider: 04/15/20 18:53 Source: patient Mode of arrival: ambulatory Limitations: no limitations History of Present Illness HPI narrative: This patient is a 40 year old female with history of small bowel obstructions, gastritis and Chrohn's disease who presents for evaluation left upper abdominal pain. She reports she woke up with this pain this morning and it has been gradually worsening. She states this pain feels similar to prior episodes of small bowel obstructions. She states she had a small episode of diarrhea this morning. She has nausea but no vomiting. She also denies fever or chills. Related Data Home Medications Medication Instructions Recorded Confirmed omeprazole 40 mg PO BID 11/24/19 12/25/19 Allergies Allergy/AdvReac Type Severity Reaction Status Date / Time Penicillins AdvReac Rash Verified 04/15/20 18:53 Review of Systems Review of Systems: All systems reviewed & are unremarkable except as noted in HPI and below Constitutional: Constitutional: Denies chills and Denies fever(s) Gastrointestinal: Gastrointestinal: Reports abdominal pain, Denies constipation, Reports nausea and Denies vomiting Genitourinary: Genitourinary: Denies hematuria, Denies pelvic pain and Denies flank pain [facility] Social History Social History Social History: The patient moved here with her fiance. She has no children. She is not currently working and considered applying for disability due to her Crohn's disease. Patient quit smoking about a month ago. He smokes marijuana just brought every day. She does not have a power of associate attorney but desires to be a full code. Smoking packs per day: 1 Smoking cigarettes per day: 20.0 Years smoked: 20 Smoking pack-years: 20.00 Smoking status: Former smoker Tobacco type: cigarettes Second hand tobacco smoke exposure: Yes Smoking end date: 11/17/19 Alcohol intake: current Drinks per week: 1 Substance use: never Substance use type: does not use Last use: 12/17/19 Gender identity (if verbalized by the patient): Female Spiritual care concerns: No Exam Const: General: alert Orientation/consciousness: patient oriented x3 HENMT: Head: normocephalic and atraumatic Mouth: Yes Normal oral and palatal mucosa present, Yes lip normal, Yes oropharynx normal and Yes moist mucous membranes Throat: posterior oropharynx normal, tonsils normal and uvula midline Eyes: Pupils: Equal, round and reactive pupils present EOM: EOMs intact bilaterally Neck: Neck: normal visual inspection Chest: Chest palpation & inspection: normal inspection of the chest Resp: Effort & Inspection: normal respiratory effort and no retractions Auscultation: clear to auscultation bilaterally Cardio: Rate: regular rate Rhythm: regular rhythm Heart sounds: no murmurs GI: GI Palp: Yes Soft to palpation, Yes Tenderness to palpation present (GI) (LUQ, ), No Guarding due to palpation present (GI), No Rigid due to palpation and No Hernia present Back/Spine/Pelvis: Back: no CVA tenderness Skin: General skin exam: normal color Rashes: no rashes Neuro: General: patient oriented x3, moves all extremities and CN's II-XI intact bilaterally Course Reevaluation(s) Reevaluation #1: PAtient reports she feels better and she is asking to be discharged home. She has not obstruction on CT. She reports she is taking her chrohn's medication. Date: 04/15/20 Time: 21:36 Vital Signs Vital signs: Vital Signs Temperature 97.2 F L 04/15/20 18:07 Pulse Rate 99 04/15/20 18:07 Respiratory Rate 16 04/15/20 18:07 Blood Pressure 167/100 H 04/15/20 18:07 Pulse Oximetry 99 04/15/20 18:07 Temperature 97.2 F L 04/15/20 18:07 Pulse Rate 79 04/15/20 21:50 Respiratory Rate 17 04/15/20 21:50 Blood Pressure 153/94 H
[2020-04-15] MEDS: ONDANSETRON INJ 4 MG/2 ML VIAL IV PUSH ×2 (19:12→21:21)
[2020-04-15] MEDS: HYDROmorphone HCL INJ (*CRX) 1 MG/ML SYR IV PUSH (19:12)
[2020-04-15 21:50] VITALS: BP 153/94; PULSE 79; RESP 17; O2SAT 99
== END 2020-04-15 21:51 | disposition home or self-care (01) ==
PROVIDERS: Emergency Medicine; Emergency Provider General Practice; PCP Family Medicine
DX: K50.90 Crohn's disease, unspecified, without complications (principal); Z87.891 Personal history of nicotine dependence
CPT/HCPCS: 36415; 74177; 80053; 81001; 81025; 83690; 85025; 96374; 96375; 96376; 99284; J0131; J1170; J2405; Q9967

== ENCOUNTER 2020-04-16 11:18 | Observation (INO) | payer OTHER, SELFPAY ==
--- NOTE | ~2020-04-16 | XR_ITS ---
EXAMINATION: XR abdomen obstructive series EXAM DATE: 04/17/2020 06:30 INDICATION: Abdominal pain. TECHNIQUE: Frontal upright projection of the upper abdomen, frontal projection of the lower abdomen f or interpretation. Comparison is made to prior examination from 04/16. FINDINGS: Paucity of bowel gas. No dilated or abnormal loops of small bowel identified. There are cho lecystectomy clips. There is no organomegaly. IMPRESSION: 1. Nonobstructive bowel gas pattern. Reviewed, dictated and finalized at location A.
--- NOTE | ~2020-04-16 | XR_ITS ---
EXAMINATION: XR abdomen obstructive series EXAM DATE: 04/16/2020 12:04 INDICATION: Upper abdominal pain for weeks. Vomiting and nausea. Crohn's disease. TECHNIQUE: Frontal upright projection of the upper abdomen, frontal projection of the lower abdomen f or interpretation. Correlation is made to CT abdomen pelvis from 04/15/2020. FINDINGS: Single loop of mildly dilated air-filled small bowel in the midabdomen, probably the segmen t described on CT scan from yesterday, likely involved with acute episode of inflammatory bowel disea se. Nonobstructive bowel gas pattern. Large left nephrolithiasis. Cholecystectomy clips. Lung bases a re clear. No free intraperitoneal fluid. Contrast within the bladder from yesterday's CTA. IMPRESSION: Single mildly dilated small bowel loops likely patient's known acute inflammatory bowel disease. No obstruction or free air. Reviewed, dictated and finalized at location A. IMPRESSION: Single mildly dilated small bowel loops likely patient's known acu te inflammatory bowel disease. No obstruction or free air.
[2020-04-16 11:23] VITALS: BP 151/107; PULSE 94; RESP 18; TEMP 35.8; O2SAT 100
[2020-04-16] MEDS: MORPHINE SULFATE (*CRX) 4 MG/ML INJ IV PUSH ×2 (11:47→13:20)
[2020-04-16] MEDS: ONDANSETRON INJ 4 MG/2 ML VIAL IV PUSH ×2 (11:47→20:21)
[2020-04-16] MEDS: SODIUM CHLORIDE 0.9% IV 1,000 ML 999 ML IV CONT (11:48)
--- NOTE | 2020-04-16 11:53 | PC.NURSE ---
Patient to CT via stretcher.
[2020-04-16 11:58] LABS: Basophils Percent Auto 0.2 % (0.2-1.2); Eosinophils Absolute Auto 0.1 K/mm3 (0-0.3); Eosinophils Percent Auto 0.7 % (0-4.4); Hematocrit 39.4 % (37.0-47.0); Hemoglobin 12.5 g/dL (12.0-15.0); Immature Granulocyte Absolute 0.03 K/mm3 (0.00-0.031); Immature Granulocyte Percent A 0.3 % (0-0.5); Lymphocytes Absolute Auto 1.19 K/mm3 (0.9-3.2); Lymphocytes Percent Auto 13.1 % (18.3-44.2); Mean Corpuscular HGB Conc 31.7 g/dl (32-36); Mean Corpuscular Hemoglobin 27.6 pg (26-34); Mean Platelet Volume 9.6 fl (7.4-10.4); Monocytes Absolute Auto 0.5 K/mm3 (0.1-0.6); Monocytes Percent Auto 5.4 % (2.6-8.5); Neutrophils Absolute Auto 7.3 K/mm3 (1.3-6.7); Neutrophils Percent Auto 80.3 % (45.5-73.1); Platelet Count Result 313 k/mm3 (150-375); Red Blood Count 4.53 M/mm3 (4.2-5.4); Red Cell Distribution Width 16.5 % (11.5-14.5); White Blood Count 9.1 K/mm3 (4.5-10.0)
[2020-04-16 12:10] LABS: Alanine Aminotransferase 49 U/L (4-35); Alkaline Phosphatase 83 U/L (38-126); Anion Gap 6 mmol/L (8-16); Aspartate Amino Transferase 49 U/L (14-36); Bilirubin,Total 0.9 mg/dL (0.2-1.3); Blood Urea Nitrogen 8 mg/dL (7-17); Calcium 9.4 mg/dL (8.4-10.2); Carbon Dioxide 28 mmol/L (22-30); Chloride 105 mmol/L (98-107); Estimated CRCL calculation 109 ml/min; Estimated Glomerular Filt Rate > 60; Glucose 135 mg/dL (65-105); Lipase 38 U/L (23-300); Potassium 4.1 mmol/L (3.4-5.0); Sodium 139 mmol/L (137-145)
[2020-04-16 12:11] LABS: Lactic Acid Reflex 1.6 mmol/L (0.7-2.1)
--- NOTE | 2020-04-16 12:21 | ED.ABDPAIN ---
HPI - Abdominal Pain General Chief Complaint: Abdominal Pain Stated Complaint: abd pain Time Seen by Provider: 04/16/20 11:24 Source: RN notes reviewed History of Present Illness HPI narrative: Patient presents emergency department from home for abdominal pain. Patient states she has had pain across the upper abdomen described as sharp and stabbing that does not radiate associated with nausea and vomiting. She denies any fevers or chills chest pain shortness of breath diarrhea or any other symptoms. Patient states she has a history of recurrent small bowel obstructions and was seen in the emergency department last night. At that time CT did not show obstruction she was discharged home but states that symptoms not improved. Related Data Home Medications Medication Instructions Recorded Confirmed omeprazole 40 mg PO BID 11/24/19 12/25/19 Allergies Allergy/AdvReac Type Severity Reaction Status Date / Time Penicillins AdvReac Rash Verified 04/15/20 18:53 Review of Systems Review of Systems: Narrative: Gen.: Denies fevers or chills ENT: Denies congestion Respiratory: Denies shortness of breath or cough CV: Denies chest pain or palpitations GI: See HPI denies burning, urgency, frequency or hematuria Musculoskeletal: Denies back pain or muscle pain Neuro: Denies numbness, tingling, weakness or focal weakness Skin: Denies rash Except as documented, all other systems reviewed and negative PMFSH Past Medical History Medical History Crohn's disease GERD with esophagitis Small bowel obstruction Social History Social History Social History: The patient moved here with her fiance. She has no children. She is not currently working and considered applying for disability due to her Crohn's disease. Patient quit smoking about a month ago. He smokes marijuana just brought every day. She does not have a power of collections attorney but desires to be a full code. Smoking packs per day: 1 Smoking cigarettes per day: 20.0 Years smoked: 20 Smoking pack-years: 20.00 Smoking status: Former smoker Tobacco type: cigarettes Second hand tobacco smoke exposure: Yes Smoking end date: 11/17/19 Alcohol intake: current Drinks per week: 1 Substance use: never Substance use type: does not use Last use: 12/17/19 Gender identity (if verbalized by the patient): Female Spiritual care concerns: No Exam Narrative: Exam Narrative: APPEARANCE: No acute distress, nontoxic, resting in bed HEENT: Normocephalic, atraumatic, OMM RESPIRATORY: No respiratory distress, clear to auscultation bilaterally with no rhonchi wheezing or rales CARDIOVASCULAR: RRR s murmur ABDOMINAL: Soft, nondistended, diffusely tender to palpation with increased tenderness in right upper quadrant left upper quadrant no rebound or guarding MUSCULOSKELETAl: Moves all extremities. No clubbing, cyanosis or edema. NEURO: Awake and alert. Following commands, speech normal, no focal deficits SKIN:: Warm, dry. Normal Color PSYCHIATRIC: Normal affect/mood Course Course Emergency Course: Reviewed old records Discussed with ELYSSA Andrews for Dr. Gatica presentation work-up he agrees with admission at this time Discussed with Dr. Paz presentation work-up. Agrees with consult Discussed with patient and family results of workup and diagnosis. Discussed need for admission. Patient and family understand and agree to current treatment plan Vital Signs Vital signs: Vital Signs Temperature 96.4 F L 04/16/20 11:23 Pulse Rate 94 04/16/20 11:23 Respiratory Rate 18 04/16/20 11:23 Blood Pressure 151/107 H 04/16/20 11:23 Pulse Oximetry 100 04/16/20 11:23 Temperature 96.4 F L 04/16/20 11:23 Pulse Rate 94 04/16/20 11:23 Respiratory Rate 18 04/16/20 11:23 Blood Pressure 151/107 H 04/16/20 11:23 Pulse Oximetry 100 04/16/20 11
[2020-04-16 12:54] VITALS: BP 130/97; PULSE 86; RESP 18; O2SAT 98
[2020-04-16 13:50] VITALS: BP 130/97; PULSE 86; RESP 16; O2SAT 98
[2020-04-16 14:10] VITALS: BMI 56.6
[2020-04-16 14:15] VITALS: BP 137/90; PULSE 74; RESP 18; TEMP 36.2; O2SAT 100
--- NOTE | 2020-04-16 15:09 | ADMGEN ---
This patient, Roma Rowan, was admitted to 3 [facility] Surg Room 311-01. Patient/family oriented to hospital policies and general routines including ID bracelet, bed and alarms, visiting hours, pain management, procedures, bathroom and other care routines, personal items, smoking policy, room service/diet, and visiting hours. Valuables list has been completed. Information on how to activate the Rapid Response Team has been discussed. Patient/Family are encouraged to report perceived risks to care and to ask questions if they do not understand what they are told or what they should do.
--- NOTE | 2020-04-16 15:30 | PM.IMHP ---
H&P: HPI History of Present Illness Date/Time: 04/16/20 15:30 Chief complaint: Nausea, vomiting, abdominal pain. Narrative: Roma Rowan is a 32-year-old female smoker with Crohn's disease, history a small-bowel obstruction, and GERD who presented to the emergency department earlier today via private vehicle from home for evaluation of nausea, vomiting, and abdominal pain. She awoke from sleep yesterday morning with discomfort in her left upper abdomen for which she was seen in the emergency department. She assumes that her pain stems from dietary indiscretion, as apparently she has been eating apples and artichokes recently which tend to exacerbate her symptoms. No acute findings were noted on labs and imaging but CT of the abdomen and pelvis did confirm persistent wall thickening along several loops of small bowel in the lower abdomen consistent with known history of Crohn's and no frankly dilated bowel to suggest obstruction. She felt better with IV fluid rehydration, antiemetics, and analgesics and decided that she would be able to go home. Unfortunately when she woke this morning her pain was still present, maybe even a bit worse, with associated nausea and vomiting. The pain is described as constant grabbing and squeezing pain which comes and goes in intensity. It does not radiate and she gives no significant aggravating or alleviating factors. She also notes that her abdomen feels a bit distended. Her last bowel movement was this morning, and she reports passing only a small amount of mucoid stool. She denies fever, chills, and sweats. No hematemesis, melena, or hematochezia. She states compliance with her home medication. Review of Systems Review of Systems: Narrative: Twelve systems were reviewed with pertinent positives and negatives as per HPI. No fever, chills, or sweats. No headache. No recent cold or flu symptoms. She denies chest pain and shortness of breath. No pleuritic pain. No lower extremity edema, calf pain, or tenderness. She does report has small burn just superior to the umbilicus secondary to using a heating pad the last couple of days. No dysuria. Except as documented, all other systems were reviewed and are negative. 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 Anemia Crohn's disease GERD with esophagitis Hepatic steatosis Morbid obesity Nephrolithiasis Surgical History Surgical History (Updated 04/16/20 @ 14:11 by Juliana Francois PA-C) History of appendectomy Appendix removed during 2nd exploratory laparotomy. History of cholecystectomy History of exploratory laparotomy Has had what sounds like an exploratory laparotomy with adhesiolysis x 2 in [facility]. History of tonsillectomy Status post laparoscopic hernia repair With mesh. Family History Family History Father Diabetes mellitus Mother Hypertension Sibling Crohn's colitis Social History Social History (Updated 04/16/20 @ 16:47 by Juliana Francois PA-C) Social History: Surrogate decision maker: javan Kurtz. Code status: Full code. Smoking packs per day: 1 Smoking cigarettes per day: 20.0 Years smoked: 20 Smoking pack-years: 20.00 Smoking status: Former smoker Tobacco type: cigarettes Second hand tobacco smoke exposure: Yes Smoking end date: 11/17/19 Alcohol intake: current Drinks per week: 1 Substance use: former Substance use type: marijuana Other substance usage details: once a week Last use: 12/17/19 Additional living arrangements comments: Lives in [place] with her amanda. Recently moved to the area from [facility]. Additional occupation/education comments: Unemployed. Gender identity (if verbalized by the patient)
[2020-04-16] MEDS: SODIUM CHLORIDE 0.9% IV 1,000 ML 125 ML IV CONT (15:40)
[2020-04-16] MEDS: HYDROmorphone HCL INJ (*CRX) 1 MG/ML SYR 0.5 MG IV PUSH (16:02)
--- NOTE | 2020-04-16 16:42 | WPDGICN ---
Assessment and Plan Assessment and plan (1) Crohn's disease: Code(s): K50.90 - Crohn's disease, unspecified, without complications Status: Chronic Assessment and Plan: Crohn's disease diagnosis by history. Somewhat suspicious for recurrent small bowel obstruction currently. Plan is to place patient on bowel rest. Will give her a dose of steroids. Pentasa will be continued if she can keep medications down. NG tube was suggested but patient refuses this at present. Will follow obstructive series over the next day or 2 to see how she responds. IBD serology is not available from last admission may be repeated to confirm this diagnosis. (2) Abdominal pain: Code(s): R10.9 - Unspecified abdominal pain Status: Acute Assessment and Plan: Patient is very localized pain to the left mid upper abdomen. Suspicious for possible partial bowel obstruction. Bowel rest encourage. If pain persists NG tube decompression may be required. (3) Elevated LFTs: Code(s): R79.89 - Other specified abnormal findings of blood chemistry Status: Acute Assessment and Plan: Elevated serum transaminases noted on initial lab testing these are mild in have been elevated on previous admission. 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 Should be followed conservatively at this time. (4) Infected prosthetic mesh of abdominal wall: Qualifiers: Encounter type: initial encounter Qualified Code(s): T85.79XA - Infection and inflammatory reaction due to other internal prosthetic devices, implants and grafts, initial encounter Code(s): T85.79XA - Infection and inflammatory reaction due to other internal prosthetic devices, implants and grafts, initial encounter Status: Acute Assessment and Plan: Previous mesh infection appears to have resolved. She does have a small burn like lesion on her Abdomen apparently from heating pad. GI Consult Note Consult date/time: 04/16/20 16:42 HPI: Roma Rowan is a 40 year old female Seen in evaluation at the request of the hospitalist service. Patient diagnosed with Crohn's disease in [facility] in [facility]. She was recently seen by our service several months ago when she was hospitalized with infected ventral hernia mesh. During that hospital stay she was felt to have partial small-bowel obstruction on the basis of Crohn's disease. Patient improved with several days of bowel rest steroids and Pentasa. Since that time did well until yesterday morning when she began to have acute left mid upper abdominal discomfort. She describes this as an intense squeezing twisting type pain. She has had some associated nausea vomiting since that occurred. Patient has been maintained on Pentasa as an outpatient. Review of Systems Review of Systems: All systems reviewed & are unremarkable except as noted in HPI and below ENT: Comments: Anicteric. Gastrointestinal: Gastrointestinal: Reports abdominal pain Comments: Midepigastric left upper quadrant tenderness noted. 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 Anemia Crohn's disease GERD with esophagitis Hepatic steatosis Morbid obesity Nephrolithiasis Surgical History Surgical History (Updated 04/16/20 @ 14:11 by Juliana Francois PA-C) History of appendectomy Appendix removed during 2nd exploratory laparotomy. History of cholecystectomy History of exploratory laparotomy Has had what sounds like an exploratory laparotomy with adhesiolysis x 2 in [facility]. History of tonsillectomy Status post laparoscopic hernia repair With mesh. Family History Family History Father Diabetes mellitus Mother Hypertension Sibling Crohn
[2020-04-16] MEDS: HYDROmorphone HCL INJ (*CRX) 1 MG/ML SYR IV PUSH ×3 (17:13→23:20)
[2020-04-16 18:17] LABS: CRP 1.1 mg/dL (<1.0)
[2020-04-16 22:00] VITALS: BP 137/85; PULSE 60; RESP 20; TEMP 36.8; O2SAT 100
[2020-04-16] MEDS: methylPREDNISolone SOD SUCC 125 MG VIAL 60 MG IV PUSH (22:41)
[2020-04-17] VITALS (11 sets, daily range): BP systolic 119–162; BP diastolic 58–95; PULSE 58–86; RESP 16–20; TEMP 36.1–36.6; O2SAT 94–99
[2020-04-17] MEDS: ONDANSETRON INJ 4 MG/2 ML VIAL IV PUSH ×3 (00:21→10:29)
[2020-04-17] MEDS: SODIUM CHLORIDE 0.9% IV 1,000 ML 125 ML IV CONT ×2 (00:25→12:21)
[2020-04-17] MEDS: HYDROmorphone HCL INJ (*CRX) 1 MG/ML SYR IV PUSH ×3 (02:19→10:26)
[2020-04-17] MEDS: methylPREDNISolone SOD SUCC 125 MG VIAL 60 MG IV PUSH (05:40)
[2020-04-17 07:45] LABS: Basophils Percent Auto 0.2 % (0.2-1.2); Hemoglobin 11.5 g/dL (12.0-15.0); Immature Granulocyte Absolute 0.02 K/mm3 (0.00-0.031); Immature Granulocyte Percent A 0.4 % (0-0.5); Lymphocytes Absolute Auto 0.39 K/mm3 (0.9-3.2); Lymphocytes Percent Auto 7.4 % (18.3-44.2); Mean Corpuscular HGB Conc 31.1 g/dl (32-36); Mean Corpuscular Hemoglobin 27.2 pg (26-34); Mean Corpuscular Volume 87.5 fl (80-100); Mean Platelet Volume 9.9 fl (7.4-10.4); Monocytes Percent Auto 0.8 % (2.6-8.5); Neutrophils Absolute Auto 4.8 K/mm3 (1.3-6.7); Neutrophils Percent Auto 91.2 % (45.5-73.1); Platelet Count Result 230 k/mm3 (150-375); Red Blood Count 4.23 M/mm3 (4.2-5.4); Red Cell Distribution Width 16.1 % (11.5-14.5); White Blood Count 5.3 K/mm3 (4.5-10.0)
--- NOTE | 2020-04-17 08:01 | PC.NURSE ---
GI lab took pt for EGD.
[2020-04-17] MEDS: LACTATED RINGERS 1,000 ML 150 ML IV CONT (08:16)
[2020-04-17 08:25] LABS: Alanine Aminotransferase 54 U/L (4-35); Albumin Level 3.9 g/dL (3.5-5.1); Alkaline Phosphatase 74 U/L (38-126); Anion Gap 11 mmol/L (8-16); Aspartate Amino Transferase 50 U/L (14-36); Bilirubin,Total 0.5 mg/dL (0.2-1.3); Blood Urea Nitrogen 8 mg/dL (7-17); Calcium 8.7 mg/dL (8.4-10.2); Carbon Dioxide 21 mmol/L (22-30); Chloride 107 mmol/L (98-107); Estimated CRCL calculation 131 ml/min; Estimated Glomerular Filt Rate > 60; Glucose 145 mg/dL (65-105); Potassium 4.4 mmol/L (3.4-5.0); Sodium 139 mmol/L (137-145)
--- NOTE | 2020-04-17 08:25 | WPDANESEPPF ---
Anes - Initial Pre Proc Eval Procedure: Operation Date: 04/17/20 11:30 Proposed Procedures p Esophagogastroduodenoscopy - Alfa Paz MD Date/Time: 04/17/20 08:25 Surgeon: Sondra Marcial PA-C Pre Op Diagnosis: Nausea, vomiting, abdominal pain. Patient Data Age: 40 Gender: F Height: 5 ft 4 in Weight: 139.4 kg Last Vital Signs Temp 97.7 F 04/17/20 06:00 Pulse 82 04/17/20 06:00 Resp 20 04/17/20 06:00 BP 151/94 H 04/17/20 06:00 Pulse Ox 96 04/17/20 06:00 Allergies Allergy/AdvReac Type Severity Reaction Status Date / Time Penicillins AdvReac Rash Verified 04/17/20 08:11 Home Medications Medication Instructions Recorded Confirmed Type omeprazole 40 mg PO DAILY 11/24/19 04/16/20 History azathioprine 100 mg PO DAILY 30 Days #60 tablet 12/28/19 04/16/20 Rx ondansetron HCl [Zofran] 4 mg PO Q6H PRN #14 tablet 04/15/20 04/16/20 Rx Laboratory Tests 04/16/20 04/16/20 04/16/20 11:51 11:51 11:51 WBC 9.1 K/mm3 K/mm3 (4.5-10.0) RBC 4.53 M/mm3 M/mm3 (4.2-5.4) Hgb 12.5 g/dL g/dL (12.0-15.0) Hct 39.4 % % (37.0-47.0) MCV 87.0 fl fl (80-100) MCH 27.6 pg pg (26-34) MCHC 31.7 g/dl L g/dl (32-36) RDW 16.5 % H % (11.5-14.5) Plt Count 313 k/mm3 k/mm3 (150-375) MPV 9.6 fl fl (7.4-10.4) Immature Gran % (Auto) 0.3 % % (0-0.5) Neut % (Auto) 80.3 % H % (45.5-73.1) Lymph % (Auto) 13.1 % L % (18.3-44.2) [place] % (Auto) 5.4 % % (2.6-8.5) Eos % (Auto) 0.7 % % (0-4.4) Baso % (Auto) 0.2 % % (0.2-1.2) Lymph # (Auto) 1.19 K/mm3 K/mm3 (0.9-3.2) [place] # (Auto) 0.5 K/mm3 K/mm3 (0.1-0.6) Eos # (Auto) 0.1 K/mm3 K/mm3 (0-0.3) Baso # (Auto) 0.0 K/mm3 K/mm3 (0.0-0.1) Abs Immat Gran (auto) 0.03 K/mm3 K/mm3 (0.00-0.031) Absolute Neuts (auto) 7.3 K/mm3 H K/mm3 (1.3-6.7) Absolute Nucleated RBC 0.0 K/mm3 K/mm3 (0.0-0.012) Nucleated RBC % 0.0 % % (0.0-0.2) Sodium 139 mmol/L mmol/L (137-145) Potassium 4.1 mmol/L mmol/L (3.4-5.0) Chloride 105 mmol/L mmol/L (98-107) Carbon Dioxide 28 mmol/L mmol/L (22-30) Anion Gap 6 mmol/L L mmol/L (8-16) BUN 8 mg/dL mg/dL (7-17) Creatinine 0.90 mg/dL mg/dL (0.7-1.0) Estim Creat Clear Calc 109 ml/min ml/min Estimated GFR > 60 (59 - ) Glucose 135 mg/dL H mg/dL (65-105) Lactic Acid 1.6 mmol/L mmol/L (0.7-2.1) Calcium 9.4 mg/dL mg/dL (8.4-10.2) Magnesium Total Bilirubin 0.9 mg/dL mg/dL (0.2-1.3) AST 49 U/L H U/L (14-36) ALT 49 U/L H U/L (4-35) Alkaline Phosphatase 83 U/L U/L (38-126) C-Reactive Protein Total Protein 7.0 g/dL g/dL (6.3-8.2) Albumin 4.0 g/dL g/dL (3.5-5.1) Lipase 38 U/L U/L (23-300) ANCA Screen Proteinase 3 (PR3) Ab Myeloperoxidase Ab S.cerevisiae IgG Ab S.cerevisiae IgA Ab 04/16/20 04/16/20 04/17/20 17:45 17:45 07:08 WBC 5.3 K/mm3 K/mm3 (4.5-10.0) RBC 4.23 M/mm3 M/mm3 (4.2-5.4) Hgb 11.5 g/dL L g/dL (12.0-15.0) Hct 37.0 % % (37.0-47.0) MCV 87.5 fl fl (80-100) MCH 27.2 pg pg (26-34) MCHC 31.1 g/dl L g/dl (32-36) RDW 16.1 % H % (11.5-14.5) Plt Count 230 k/mm3 k/mm3 (150-375) MPV 9.9 fl fl (7.4-10.4) Immature Gran % (Auto) 0.4 % % (0-0.5) Neut % (Auto) 91.2 % H % (45.5-73.1) Lymph % (Auto) 7.4 % L % (18.3-44.2) [place] % (Auto) 0.8 % L % (2.6-8.5) Eos % (Auto) 0.0 % % (0-4.4) Baso % (Auto) 0.2 % % (0.2-1.
[2020-04-17] MEDS: BENZOCAINE (*SP) 60 ML SPRAY CAN (HURRICAINE) 1 SPRAY MUCOUS MEM (08:56)
--- NOTE | 2020-04-17 08:57 | WPDGIPROGNO ---
Progress Note: A&P Additional Plan Patient continues to have rather severe left upper quadrant abdominal pain today. She describes it as a twisting sensation. Physical exam reveals her to be anxious. She states she has panic attacks. In this likely contributes to her pain. Lungs are clear. Heart without murmur. Abdomen is obese. Bowel sounds are present soft tenderness located to the left upper quadrant. Labs reveal previous IBD serologies that failed to confirm Crohn's disease. Previous small-bowel follow-through also did not look like Crohn's disease but more likely infectious in etiology. Impression 1. Left upper quadrant abdominal pain. 2. Anxiety. Panic attack. 3. Obesity. Plan is to discontinue steroids. An EGD will be performed this morning. Further recommendations after endoscopy. Subjective Date/time seen: 04/17/20 08:57 Objective Data Vital Signs Vital Signs: Vital Signs - 24 hr 04/16/20 11:23 04/16/20 12:54 04/16/20 13:50 Temperature 96.4 F L Pulse Rate 94 86 86 Respiratory Rate 18 18 16 Blood Pressure 151/107 H 130/97 H 130/97 H Pulse Oximetry 100 98 98 04/16/20 14:15 04/16/20 22:00 04/17/20 06:00 Temperature 97.1 F L 98.2 F 97.7 F Pulse Rate 74 60 82 Respiratory Rate 18 20 20 Blood Pressure 137/90 137/85 151/94 H Pulse Oximetry 100 100 96 04/17/20 08:26 Temperature 96.9 F L Pulse Rate 69 Respiratory Rate 18 Blood Pressure 162/81 H Pulse Oximetry 99 Intake/Output Intake/Output: Intake & Output 04/14/20 04/15/20 04/16/20 04/17/20 23:59 23:59 23:59 23:59 Intake Total 0 1000 Output Total 200 Balance 0 800 Meds/Results Medications: Active Medications Generic Name Dose Route Start Last Admin Trade Name Freq PRN Reason Stop Dose Admin Azathioprine 100 mg 04/17/20 09:00 Imuran PO DAILY PAULA Benzocaine 1 spray 04/17/20 08:56 04/17/20 08:56 Hurricaine [place] MUCOUS MEM 04/17/20 08:57 1 spray ONCE ONE Administration Hydromorphone HCl 1 mg 04/16/20 16:53 04/17/20 05:47 Dilaudid Inj IV PUSH 1 mg Q3H PRN Administration Pain Rated 7-10 Sodium Chloride 1,000 mls @ 125 mls/hr 04/16/20 12:45 04/17/20 00:25 Normal Saline Iv IV CONT 125 mls/hr .Q8H PAULA Administration Lactated Ringer's 1,000 mls @ 150 mls/hr 04/17/20 08:15 04/17/20 08:16 Lr - Lactated Ringers Iv IV CONT 150 mls/hr .Q6H40M PAULA Administration Ondansetron HCl 4 mg 04/16/20 12:44 04/17/20 05:40 Zofran Inj IV PUSH 4 mg Q4H PRN Administration Nausea Pantoprazole Sodium 40 mg 04/17/20 09:00 Protonix PO BID PAULA Radiology Results: ITS Impressions Abdomen X-Ray 04/17/20 06:59 IMPRESSION: 1. Nonobstructive bowel gas pattern. Labs Labs: Laboratory Results - last 24 hr 04/16/20 04/16/20 04/16/20 11:51 11:51 11:51 WBC 9.1 RBC 4.53 Hgb 12.5 Hct 39.4 MCV 87.0 MCH 27.6 MCHC 31.7 L RDW 16.5 H Plt Count 313 MPV 9.6 Immature Gran % (Auto) 0.3 Neut % (Auto) 80.3 H Lymph % (Auto) 13.1 L [place] % (Auto) 5.4 Eos % (Auto) 0.7 Baso % (Auto) 0.2 Lymph # (Auto) 1.19 [place] # (Auto) 0.5 Eos # (Auto) 0.1 Baso # (Auto) 0.0 Abs Immat Gran (auto) 0.03 Absolute Neuts (auto) 7.3 H Absolute Nucleated RBC 0.0 Nucleated RBC % 0.0 Sodium 139 Potassium 4.1 Chloride 105 Carbon Dioxide 28 Anion Gap 6 L BUN 8 Creatinine 0.90 Estim Creat Clear Calc 109 Estimated GFR > 60 Glucose 135 H Lactic Acid 1.6 Calcium 9.4 Magnesium Total Bilirubin 0.9 AST 49 H ALT 49 H Alkaline Phosphatase 83 C-Reactive Protein Total Protein 7.0 Albumin 4.0 Lipase 38 04/16/20 04/17/20 04/17/20 17:45 07:08 07:08 WBC 5.3 RBC 4.23 Hgb 11.5 L Hct 37.0 MCV 87.5 MCH 27.2 MCHC 31.1 L RDW 16.1 H Plt Count 230 MPV 9.9 Immature Gran % (Auto)
[2020-04-17] MEDS: PANTOPRAZOLE 40 MG TABLET PO (10:29)
[2020-04-17] MEDS: azaTHIOprine 50 MG TABLET 100 MG PO (10:29)
--- NOTE | 2020-04-17 14:03 | PM.DS ---
DS: Admitting Diagnosis Admitting Diagnosis Admitting Diagnosis: Nausea, vomiting, abdominal pain. DS: Discharge Diagnosis Discharge Diagnosis (1) Abdominal pain: Code(s): R10.9 - Unspecified abdominal pain Status: Acute (2) Crohn's disease: Code(s): K50.90 - Crohn's disease, unspecified, without complications Status: Chronic (3) Elevated LFTs: Code(s): R79.89 - Other specified abnormal findings of blood chemistry Status: Acute (4) Anemia: Qualifiers: Anemia type: unspecified type Qualified Code(s): D64.9 - Anemia, unspecified Code(s): D64.9 - Anemia, unspecified Status: Chronic DS: Summary Hospital Course Reason for hospitalization: Patient is a 40-year-old woman with a history of Crohn's disease, small-bowel obstruction, and GERD, who presented to the emergency room for nausea, vomiting abdominal pain. She came to the emergency room one day prior to arrival and had CT which showed Persistent wall thickening along several loops of small bowel in the lower abdomen consistent with known history of Crohn's disease. No frankly dilated bowel to suggest obstruction. Nonobstructing right nephrolithiasis. She was discharged home to continue with clear liquid diet and follow up with GI. Symptoms continued and she had no improvement so came back to the ER for further evaluation. Initial vitals showed temperature of 97.2?, elevated blood pressure 167/100, heart rate 99, oxygen saturation 99% on room air. Normal CBC with differential showing slightly elevated neutrophils. Normal CMP other than elevated LFTs, AST/ALT 46/49. Normal urinalysis. Abd XR showed single mildly dilated small bowel loops likely patient's known acute inflammatory bowel disease. No obstruction or free air. She was admitted due to failing outpatient therapy, placed on IV fluid hydration, given antiemetics, inserted on some steroids with a consult to GI. Dr. Paz evaluated the patient performed an EGD today which was normal. He recommended continuing PPI therapy twice daily and following up with a GI specialist that is in her network. She is feeling much better at this time and eating a regular diet without any issues. She would like to be discharged home at this time with some sublingual Zofran which has helped her in the past. Status at Discharge Cognitive/behavioral status at discharge: Stable, improved. Time Spent with Patient Time attestation: Total time spent providing and/or coordinating discharge services: Time spent: Greater than 30 minutes Exam Narrative: Exam Narrative: General: 40-year-old woman sitting up in bed eating lunch. Appears comfortable. In no acute distress. Skin: No jaundice or cyanosis. Good skin turgor. Neck: Full range of motion. Supple. Respiratory: Lungs are clear to auscultation bilaterally. No bony chest wall tenderness. Cardiovascular: The heart has a regular rate and rhythm without murmur. Lower extremities: No lower extremity edema. Distal pulses are easily palpated. No calf tenderness to palpation. Gastrointestinal: The abdomen is soft, nontender and nondistended with active bowel sounds. Psychiatric: Lucid and oriented. Memory intact. Neurologic: No focal deficits. Speech is clear. No facial drooping. DS: Data Data Completed and Pending Labs on day of discharge: Labs from last 24 hours 04/17/20 04/17/20 04/16/20 07:08 07:08 17:45 WBC 5.3 RBC 4.23 Hgb 11.5 L Hct 37.0 MCV 87.5 MCH 27.2 MCHC 31.1 L RDW 16.1 H Plt Count 230 MPV 9.9 Immature Gran % (Auto) 0.4 Neut % (Auto) 91.2 H Lymph % (Auto) 7.4 L [place] % (Auto) 0.8 L Eos % (Auto) 0.0 Baso % (Auto) 0.2 Lymph # (Auto) 0.39 L [place] # (Auto) 0.0 L Eos # (Auto) 0.0 Baso # (Auto) 0.0 Abs Immat Gran (auto) 0.02 Absolute Neuts (auto) 4.8 Absolute Nucleated RBC 0.0 Nucleated RBC %
[2020-04-22 10:31] LABS: ANCA Screen Negative (Negative); Myeloperoxidase Ab <1.0 AI (<1.0); Proteinase-3 Ab <1.0 AI (<1.0); S cerevisiae Ab (IgA) 14.6 U (<=20.0); S cerevisiae Ab (IgG) 8.6 U (<=20.0)
== END 2020-04-17 16:40 | disposition home or self-care (01) ==
LOC: ANHED 12:47 → ANH3MEDSUR 13:00
PROVIDERS: Internal Medicine Gastroenterology; Admitting Provider Family Medicine; Emergency Provider Emergency Medicine; PCP Family Medicine; Visit Provider Internal Medicine
PROC: 0DJ08ZZ Inspection of Upper Intestinal Tract, Via Natural or Artificial Opening Endoscopic (ICD-10-PCS; CPT 43235; principal; 2020-04-17 11:30)
DX: R10.12 Left upper quadrant pain (principal); K50.90 Crohn's disease, unspecified, without complications; R11.2 Nausea with vomiting, unspecified; D64.9 Anemia, unspecified; E66.01 Morbid (severe) obesity due to excess calories; K21.9 Gastro-esophageal reflux disease without esophagitis; R03.0 Elevated blood-pressure reading, without diagnosis of hypertension; K76.0 Fatty (change of) liver, not elsewhere classified; Z87.442 Personal history of urinary calculi; Z87.891 Personal history of nicotine dependence; Z90.49 Acquired absence of other specified parts of digestive tract; Z90.89 Acquired absence of other organs; R79.89 Other specified abnormal findings of blood chemistry; Z68.43 Body mass index [BMI] 50.0-59.9, adult
CPT/HCPCS: 43239; 36415; 74019; 80053; 81025; 83605; 83690; 83735; 85025; 86021; 86140; 86671; 87081; 96361; 96374; 96375; 96376; 99285; A9270; G0378; G0379; J1170; J2270; J2405; J2704; J2930; J7030; J7120

== ENCOUNTER 2020-04-22 11:48 | Emergency (ER) | payer OTHER, SELFPAY | END 2020-04-22 11:49 | disposition left against medical advice (07) | PROVIDERS: PCP Family Medicine | DX: Z53.21 Procedure and treatment not carried out due to patient leaving prior to being seen by health care provider (principal) | CPT/HCPCS: 99199 ==

== ENCOUNTER 2020-08-11 13:45 | Emergency (ER) | payer OTHER, SELFPAY ==
--- NOTE | ~2020-08-11 | US_ITS ---
US pelvic complete w TV DATE: 08/11/2020 15:09 INDICATION: Heavy vaginal bleeding since May TECHNIQUE: Real-time imaging via transabdominal and transvaginal approaches COMPARISON: 04/15/2020 CT abdomen pelvis 03/10/2020 pelvic ultrasound FINDINGS: The uterus measures 10.9 cm height, 5.1 cm AP and 5.8 cm transverse dimension. The central endometrial echo complex measures up to 2.1 cm AP dimension. A 2.9 x 2.4 x 2.8 cm right uterine fibroid is noted. Right ovary 1.5 x 2.7 x 1.5 cm. Left ovary 1.9 x 3.1 x 2.4 cm. There is a complicated left ovarian cystic lesion measuring 3 x 2.4 x 2.9 cm, with through transmission and posterior enhancement. There is vascular flow to both ovaries. No pelvic free fluid collection is noted. IMPRESSION: Thickened endometrial echo measuring up to 2.1 cm AP dimension. Endometrial malignancy is not excluded. K- 2.9 cm left ovarian cyst Reviewed, dictated and finalized at [facility] Reviewed, dictated and finalized at [facility] INE OPERATOR IMPRESSION: Thickened endometrial echo measuring up to 2.1 cm AP dimension. End ometrial malignancy is not excluded. K- 2.9 cm left ovarian cyst
[2020-08-11 13:49] VITALS: BP 149/85; PULSE 90; RESP 16; TEMP 36.1; O2SAT 99
[2020-08-11 14:26] LABS: Basophils Percent Auto 0.4 % (0.2-1.2); Eosinophils Absolute Auto 0.1 K/mm3 (0-0.3); Eosinophils Percent Auto 1.2 % (0-4.4); Hematocrit 33.6 % (37.0-47.0); Hemoglobin 10.5 g/dL (12.0-15.0); Immature Granulocyte Absolute 0.01 K/mm3 (0.00-0.031); Immature Granulocyte Percent A 0.1 % (0-0.5); Lymphocytes Absolute Auto 1.99 K/mm3 (0.9-3.2); Lymphocytes Percent Auto 28.8 % (18.3-44.2); Mean Corpuscular HGB Conc 31.3 g/dl (32-36); Mean Corpuscular Volume 86.4 fl (80-100); Mean Platelet Volume 8.9 fl (7.4-10.4); Monocytes Absolute Auto 0.3 K/mm3 (0.1-0.6); Monocytes Percent Auto 4.9 % (2.6-8.5); Neutrophils Absolute Auto 4.5 K/mm3 (1.3-6.7); Neutrophils Percent Auto 64.6 % (45.5-73.1); Platelet Count Result 328 k/mm3 (150-375); Red Blood Count 3.89 M/mm3 (4.2-5.4); Red Cell Distribution Width 16.3 % (11.5-14.5); White Blood Count 6.9 K/mm3 (4.5-10.0)
[2020-08-11 14:34] LABS: Add Urine Microscopic? YES; Appearance Urine Cloudy (Clear); Bilirubin Urine Negative (Negative); Blood Urine 3+ (Negative); Color Urine Yellow (Yellow); Glucose Urine UA 1+ mg/dL (Negative); Ketones Urine Negative (Negative); Leukocyte Esterase Ur Negative LEU/UL (Negative); Mucus Urine Heavy /lpf; Nitrate Urine Negative (Negative); Protein Urine 3+ mg/dL (Negative); RBC Urine >75 /hpf (0-2); Squamous Epithelial Cell Urine Moderate /hpf (Few); Urobilinogen Urine Negative mg/dL (<2.0)
[2020-08-11 14:37] LABS: INR 0.9; Prothrombin Time 13.1 Seconds (11.1-14.7)
[2020-08-11 14:38] LABS: Partial Thromboplastin Time 22.5 SECONDS (22.3-36.8)
[2020-08-11 14:40] LABS: Alanine Aminotransferase 36 U/L (4-35); Albumin Level 3.8 g/dL (3.5-5.1); Alkaline Phosphatase 68 U/L (38-126); Aspartate Amino Transferase 37 U/L (14-36); Bilirubin,Total 0.4 mg/dL (0.2-1.3); Blood Urea Nitrogen 10 mg/dL (7-17); Carbon Dioxide 24 mmol/L (22-30); Estimated CRCL calculation 127 ml/min; Estimated Glomerular Filt Rate > 60; Glucose 123 mg/dL (65-105)
[2020-08-11 14:43] LABS: Specific Grav Ur 1.031 (1.001-1.035)
[2020-08-11 14:50] LABS: Anion Gap 6 mmol/L (8-16); Calcium 8.4 mg/dL (8.4-10.2); Chloride 108 mmol/L (98-107); Potassium 3.9 mmol/L (3.4-5.0); Sodium 138 mmol/L (137-145)
[2020-08-11 15:10] VITALS: BP 129/57; PULSE 69
[2020-08-11 15:11] VITALS: BP 144/80; PULSE 67
[2020-08-11 15:12] VITALS: BP 161/95; PULSE 78
--- NOTE | 2020-08-11 16:09 | ED.GENADULT ---
HPI - General Adult General Chief complaint: Vaginal Bleeding Stated complaint: VB Time Seen by Provider: 08/11/20 13:55 Source: patient Mode of arrival: ambulatory Limitations: no limitations History of Present Illness HPI narrative: Patient presents with chief complaint of vaginal bleeding that has waxed and waned in intensity from 06-02-21. Patient states that she passed a large blood clot the size of a today so she came to the emergency department. Patient states that she made an appointment at [facility] but has not yet seen a provider. Patient denies any vaginal trauma. Patient denies any pregnancies, diagnosis of PCOS or fibroids, thyroid changes, chronic medical diseases, vaginal discharge or changes in medications. Related Data Allergies Allergy/AdvReac Type Severity Reaction Status Date / Time Penicillins Allergy Unknown Rash Verified 04/17/20 09:00 Review of Systems Review of Systems: Narrative: CONSTITUTIONAL: Denies fever, chills, or sweats. EYES: Denies visual changes, redness, or discharge. ENT: Denies rhinorrhea, congestion, sore throat, or otalgia. CARDIOVASCULAR: Denies chest pain, palpitations, or edema. RESPIRATORY: Denies cough or dyspnea. GASTROINTESTINAL: Denies abdominal pain, nausea, vomiting, or diarrhea. GENITOURINARY: Reports vaginal bleeding denies dysuria or hematuria. SKIN: Denies rash or itching. MUSCULOSKELETAL: Denies back pain, joint pain, or myalgia. NEUROLOGIC: Denies headache, numbness, dizziness, or weakness. PSYCHIATRIC: Denies anxiety or depression. 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 Anemia Crohn's disease GERD with esophagitis Hepatic steatosis Morbid obesity Nephrolithiasis Surgical History Surgical History (Updated 04/16/20 @ 14:11 by Juliana Francois PA-C) History of appendectomy Appendix removed during 2nd exploratory laparotomy. History of cholecystectomy History of exploratory laparotomy Has had what sounds like an exploratory laparotomy with adhesiolysis x 2 in [facility]. History of tonsillectomy Status post laparoscopic hernia repair With mesh. Family History Family History Father Diabetes mellitus Mother Hypertension Sibling Crohn's colitis Social History Social History (Updated 04/16/20 @ 16:47 by Juliana Francois PA-C) Social History: Surrogate decision maker: javan Kurtz. Code status: Full code. Smoking packs per day: 1 Smoking cigarettes per day: 20.0 Years smoked: 20 Smoking pack-years: 20.00 Smoking status: Former smoker Tobacco type: cigarettes Second hand tobacco smoke exposure: Yes Smoking end date: 11/17/19 Alcohol intake: current Drinks per week: 1 Substance use: former Substance use type: marijuana Other substance usage details: once a week Last use: 12/17/19 Additional living arrangements comments: Lives in [place] with her amanda. Recently moved to the area from [facility]. Additional occupation/education comments: Unemployed. Gender identity (if verbalized by the patient): Female Spiritual care concerns: No Exam Narrative: Exam Narrative: GENERAL: Well-appearing, well-nourished, and in no acute distress. Patient not in discomfort or distress or use time. HEAD: Normocephalic, atraumatic. EYES: PERRLA and EOMI. CHEST: Clear to auscultation. No respiratory distress. No wheezes rales or rhonchi HEART: Regular rate and rhythm. ABDOMEN: Soft, nontender, nondistended, normal active bowel sounds. PELVIC: There is medium vaginal blood flow. Acute blood clots noted in vaginal vault her largest is nickel size. SKIN: Warm, dry, no rash. NEURO: No focal deficits. Alert and oriented x3. PSYCH: Normal mood a
== END 2020-08-11 17:07 | disposition home or self-care (01) ==
PROVIDERS: Physician Assistant; Emergency Provider Emergency Medicine; PCP Family Medicine
DX: N93.9 Abnormal uterine and vaginal bleeding, unspecified (principal); K50.90 Crohn's disease, unspecified, without complications; K21.00 Gastro-esophageal reflux disease with esophagitis, without bleeding; E66.01 Morbid (severe) obesity due to excess calories; Z68.43 Body mass index [BMI] 50.0-59.9, adult; D64.9 Anemia, unspecified; N83.202 Unspecified ovarian cyst, left side; R93.89 Abnormal findings on diagnostic imaging of other specified body structures; Z87.891 Personal history of nicotine dependence
CPT/HCPCS: 36415; 76830; 76856; 80053; 81001; 81025; 84443; 85025; 85610; 85730; 99284

== ENCOUNTER 2020-08-16 13:15 | Inpatient (IN) | payer OTHER, SELFPAY ==
--- NOTE | ~2020-08-16 | CT_ITS ---
EXAMINATION: CT abdomen pelvis w con DATE: 08/16/2020 15:10 INDICATION: Upper abdominal pain and vomiting TECHNIQUE: Computed tomography (CT) of the abdomen and pelvis was performed with 100 cc Omnipaque 350 intravenous contrast. Automated exposure control and iterative reconstruction technique were employe d. Exam dose: 1560.23 mGy-cm total exam DLP. COMPARISON: 04/15/2020 CT abdomen pelvis FINDINGS: The lung bases are clear. Normal heart size. No pericardial or pleural effusion. Diffuse hepatic steatosis. No hepatic space-occupying mass lesion is detected. Status post cholecystectomy. No bile duct or pancreatic duct dilatation. No pancreatic mass lesion or calcification. Normal splenic size. Normal right adrenal gland. Probable small left adrenal adenoma. Pinpoint nonobstructing mid right renal calculus. Multiple upper pole left renal nonobstructing calculi, the largest measuring in excess of 8 mm size. 3.3 mm lower pole left renal calculus. No ureteral calculus or hydroureteronephrosis. The urinary bladder is relatively evacuated and unrema rkable. Probable uterine fibroids. Normal caliber of the abdominal aorta. No intraperitoneal or retroperitoneal or pelvic mass lesion or adenopathy or ascites. Small sliding hiatal hernia. Fluid levels are noted in the duodenum which measures up to 4.1 cm diameter. There are mildly dilated fluid distended small bowel segments with thickened barajas and air-fluid leve ls, with transition zone in the left pelvic area (series 3 image 151). There is fecalization of dax nt in the small bowel proximal to the transition zone. The distal small bowel and colon are evacuated . Findings are consistent with partial small bowel obstruction. Included skeletal structures are unremarkable, without evidence of osteolytic or osteoblastic lesions . IMPRESSION: Partial small bowel obstruction with transition zone in the left pelvic area Hepatic steatosis Status post cholecystectomy Small left adrenal probable adenoma Small sliding hiatal hernia Reviewed, dictated and finalized at [facility] Reviewed, dictated and finalized at [facility] TICS TESTING TECHNICIAN IMPRESSION: Partial small bowel obstruction with transition zone in the left p elvic area Hepatic steatosis Status post cholecystectomy Small left adrenal probable adenoma Small sliding hiatal hernia
--- NOTE | ~2020-08-16 | XR_ITS ---
EXAMINATION: XR sm bowel follow through DATE: 08/17/2020 11:44 INDICATION: Small bowel obstruction. TECHNIQUE: Oral contrast was administered, and a time course of radiographs of the abdomen was obtain ed. Fluoroscopy of the small bowel was not performed. Fluoroscopy exposure time was 0 minutes. The to georgina number of images was 7. COMPARISON: CT abdomen and pelvis 08/16/2020, 04/15/2020 FINDINGS: There are multiple dilated loops of small bowel. Transit time from the stomach to proximal colon was between 1.5 and 2.5 hours. IMPRESSION: 1. Dilated small bowel, consistent with adynamic ileus versus partial obstruction. Reviewed, dictated and finalized at location A. HATCHERY SUPERVISOR IMPRESSION: 1. Dilated small bowel, consistent with adynamic ileus versus partial obstructi on.
[2020-08-16 13:18] VITALS: BP 147/83; PULSE 99; RESP 18; TEMP 36.7; O2SAT 99
[2020-08-16 13:46] LABS: Add Urine Microscopic? YES; Appearance Urine Clear (Clear); Bacteria Urine Trace /hpf; Bilirubin Urine Negative (Negative); Blood Urine 1+ (Negative); Color Urine Yellow (Yellow); Glucose Urine UA Negative (Negative); Ketones Urine Negative (Negative); Leukocyte Esterase Ur Negative LEU/UL (Negative); Mucus Urine Moderate /lpf; Nitrate Urine Negative (Negative); Protein Urine 1+ mg/dL (Negative); Specific Grav Ur 1.015 (1.001-1.035); Squamous Epithelial Cell Urine Occasional /hpf (Few); WBC Urine 0-3 /hpf
[2020-08-16 13:50] LABS: Basophils Percent Auto 0.3 % (0.2-1.2); Eosinophils Percent Auto 0.2 % (0-4.4); Hematocrit 38.6 % (37.0-47.0); Hemoglobin 12.1 g/dL (12.0-15.0); Immature Granulocyte Absolute 0.05 K/mm3 (0.00-0.031); Immature Granulocyte Percent A 0.4 % (0-0.5); Lymphocytes Absolute Auto 2.01 K/mm3 (0.9-3.2); Mean Corpuscular HGB Conc 31.3 g/dl (32-36); Mean Corpuscular Hemoglobin 26.7 pg (26-34); Mean Platelet Volume 9.1 fl (7.4-10.4); Monocytes Absolute Auto 0.5 K/mm3 (0.1-0.6); Monocytes Percent Auto 4.3 % (2.6-8.5); Neutrophils Absolute Auto 9.9 K/mm3 (1.3-6.7); Neutrophils Percent Auto 78.8 % (45.5-73.1); Platelet Count Result 412 k/mm3 (150-375); Red Blood Count 4.54 M/mm3 (4.2-5.4); Red Cell Distribution Width 15.9 % (11.5-14.5); White Blood Count 12.6 K/mm3 (4.5-10.0)
--- NOTE | 2020-08-16 14:06 | ED.ABDPAIN ---
HPI - Abdominal Pain General Chief Complaint: Abdominal Pain Stated Complaint: n/v Time Seen by Provider: 08/16/20 13:48 Source: patient Mode of arrival: ambulatory Limitations: no limitations History of Present Illness HPI narrative: PAtient is 40 year old female with history of small bowel obstructions who presents for evaluation of upper abdominal pain . This pain started 2 days ago and she describes it as constant. She reports it is both sharp and cramping. She has been having nausea and vomiting today. She is unable to keep anything down. She states this feels similar to previous bowel obstructions. Her last bowel movement was this morning. She denies any fever or chills. She started a new medication for her heavy menstrual cycles so she is unsure if that is the cause of her pain. 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 Anemia Crohn's disease GERD with esophagitis Hepatic steatosis Morbid obesity Nephrolithiasis Surgical History Surgical History (Updated 04/16/20 @ 14:11 by Juliana Francois PA-C) History of appendectomy Appendix removed during 2nd exploratory laparotomy. History of cholecystectomy History of exploratory laparotomy Has had what sounds like an exploratory laparotomy with adhesiolysis x [address] [facility]. History of tonsillectomy Status post laparoscopic hernia repair With mesh. Family History Family History Father Diabetes mellitus Mother Hypertension Sibling Crohn's colitis Social History Social History (Updated 04/16/20 @ 16:47 by Juliana Francois PA-C) Social History: Surrogate decision maker: javan Kurtz. Code status: Full code. Smoking packs per day: 1 Smoking cigarettes per day: 20.0 Years smoked: 20 Smoking pack-years: 20.00 Smoking status: Former smoker Tobacco type: cigarettes Second hand tobacco smoke exposure: Yes Smoking end date: 11/17/19 Alcohol intake: current Drinks per week: 1 Substance use: former Substance use type: marijuana Other substance usage details: once a week Last use: 12/17/19 Additional living arrangements comments: Lives in [place] with her amanda. Recently moved to the area from [facility]. Additional occupation/education comments: Unemployed. Gender identity (if verbalized by the patient): Female Spiritual care concerns: No Exam Const: General: alert Nutritional Appearance: obese Orientation/consciousness: patient oriented x3 HENMT: Head: normocephalic and atraumatic Throat: posterior oropharynx normal and tonsils normal Eyes: EOM: EOMs intact bilaterally Chest: Chest palpation & inspection: normal inspection of the chest Resp: Effort & Inspection: normal respiratory effort and no retractions Auscultation: clear to auscultation bilaterally Cardio: Rate: regular rate Rhythm: regular rhythm Heart sounds: no murmurs GI: GI Palp: Yes Soft to palpation, Yes Tenderness to palpation present (GI) and No Guarding due to palpation present (GI) Auscultation: normal bowel sounds Neuro: General: patient oriented x3 and moves all extremities Psych: Mental Status: mental status grossly normal Affect: normal affect Course Reevaluation(s) Reevaluation #1: I spoke with patient about diagnosis of partial bowel obstruction and treatment with NGT. She is initial states ok but now nursing staff reports she is refusing
[2020-08-16] MEDS: LACTATED RINGERS 1,000 ML 999 ML IV CONT (14:36)
[2020-08-16] MEDS: MORPHINE SULFATE (*CRX) 4 MG/ML INJ IV PUSH (14:36)
[2020-08-16] MEDS: ONDANSETRON INJ 4 MG/2 ML VIAL IV PUSH ×2 (14:36→19:56)
[2020-08-16 14:40] LABS: Alanine Aminotransferase 30 U/L (4-35); Albumin Level 4.2 g/dL (3.5-5.1); Alkaline Phosphatase 75 U/L (38-126); Anion Gap 1 mmol/L (8-16); Aspartate Amino Transferase 28 U/L (14-36); Bilirubin,Total 0.7 mg/dL (0.2-1.3); Blood Urea Nitrogen 11 mg/dL (7-17); Calcium 9.1 mg/dL (8.4-10.2); Carbon Dioxide 31 mmol/L (22-30); Chloride 103 mmol/L (98-107); Estimated CRCL calculation 101 ml/min; Estimated Glomerular Filt Rate > 60; Glucose 108 mg/dL (65-105); Lipase 37 U/L (23-300); Potassium 3.9 mmol/L (3.4-5.0); Sodium 135 mmol/L (137-145)
[2020-08-16 16:10] VITALS: BP 134/97; PULSE 89; RESP 17; O2SAT 98
--- NOTE | 2020-08-16 16:11 | PC.NURSE ---
pt aware of need for ng tube, pt refusing at this time, stating that she has had many of them and that she can not do it again provider made aware, nno
[2020-08-16] MEDS: HYDROmorphone HCL INJ (*CRX) 1 MG/ML SYR 0.5 MG IV PUSH ×2 (16:39→22:25)
--- NOTE | 2020-08-16 17:57 | PC.NURSE ---
pt noted to be in room crying, pt requesting Dilaudid, only one that does not make her sick pt continues to refuse NG placement. pt given warm blanket.
[2020-08-16] MEDS: HYDROmorphone HCL INJ (*CRX) 1 MG/ML SYR IV PUSH (18:34)
[2020-08-16 18:35] VITALS: BP 148/90; PULSE 88; RESP 16; O2SAT 96
--- NOTE | 2020-08-16 19:10 | ADMGEN ---
This patient, Roma Rowan, was admitted to Medical Room 341-01. Patient/family oriented to hospital policies and general routines including ID bracelet, bed and alarms, visiting hours, pain management, procedures, bathroom and other care routines, personal items, smoking policy, room service/diet, and visiting hours. Information on how to activate the Rapid Response Team has been discussed. Patient/Family are encouraged to report perceived risks to care and to ask questions if they do not understand what they are told or what they should do.
[2020-08-16 19:25] VITALS: BP 130/66; PULSE 79; RESP 14; TEMP 35.9; O2SAT 99
[2020-08-16] MEDS: SODIUM CHLORIDE 0.9% IV 1,000 ML 125 ML IV CONT (19:44)
--- NOTE | 2020-08-16 23:04 | PM.IMHP ---
H&P: HPI History of Present Illness Date/Time: 08/16/20 23:04 Chief Complaint: Abdominal pain Narrative: Roma Rowan is a 40 year old female has had a history of having multiple abdominal surgeries with scar tissue. She has had multiple bouts of small-bowel obstruction. The last time the patient was admitted for small-bowel obstruction was April of last year. She was seen by Dr. BAEZ on several admissions. According to his notes he could not confirm Crohn's disease. The patient has been having heavy periods since May as well and she had an ultrasound performed on 08/11/2020 which was read as a thickened endometrial echo measuring up to 2.1 cm AP dimension. Endometrial malignancy is not excluded. The patient is to follow-up with her polymerization engineer this next week. The patient stated that her vaginal bleeding has slowed down when she had got medication To help that. Today the patient did receive a CT of the abdomen and pelvis which was read as partial small-bowel obstruction with transition zone in the left pelvis area. Earlier she complained of upper abdominal pain and when I saw her she is complaining of lower abdominal pain this started about 2 days ago and stated that it has been constant. She said this feels similar to her previous small-bowel obstruction. She felt that the medication that she got for her heavy bleeding caused her this discomfort. She tried to rest at home and did not relieve her discomfort. Walking made her pain worse. The patient was started on IV fluids and given Zofran morphine and Dilaudid in the emergency room. Patient refused the NG tube. The patient stated she was aware of with the NG tube would do for her and that this is a treatment for the small-bowel obstruction. We also explained to her that the pain medication could possibly make the obstruction worse. I requested that surgical consult be placed. She has a history of having adhesions with adhesiolysis in the past. White count today is 12.6. H&H remained stable. Patient is being admitted for observation on the date of service 08/16/2020. Review of Systems Review of Systems: All systems reviewed & are unremarkable except as noted in HPI and below Constitutional: Constitutional: Reports as per HPI and Reports no additional constitutional complaints Eyes: Eyes: Reports as per HPI and Reports no additional eye complaints ENT: Reports system reviewed and no additional complaints, except as documented and Reports Normal hearing present Cardiovascular: Cardiovascular: Reports no additional cardiovascular complaints Respiratory: Respiratory: Reports no additional respiratory complaints and Reports no additional respiratory complaints Gastrointestinal: Gastrointestinal: Reports as per HPI and Reports no additional gastrointestinal complaints Musculoskeletal: Musculoskeletal: Reports no additional musculoskeletal complaints Integumentary/Breasts: Skin/Breast: Reports system reviewed and no additional complaints, except as docu and Reports as per HPI Neurologic: Reports system reviewed and no additional complaints, except as documented, Reports as per HPI and Reports Normal hearing present Psychiatric: Psychiatric: Reports no additional psychiatric complaints and Reports as per HPI Endocrine: Endocrine: Reports no additional endocrine complaints Hematologic/Lymphatic: Hematologic/Lymphatic: Reports no additional hematologic/lymphatic complaints Allergic/Immunologic: Allergic/Immunologic: Reports no additional allergic/immunologic complaints PENDING SALE TO [facility] Past Medical History Medical History 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 Anemia Crohn's disease GERD with esophagitis Hepatic steatosis Morbid obesity Nephrolithiasis Surgical History Surgical History
[2020-08-17] MEDS: ONDANSETRON INJ 4 MG/2 ML VIAL IV PUSH ×3 (02:35→10:20)
[2020-08-17] MEDS: HYDROmorphone HCL INJ (*CRX) 1 MG/ML SYR 0.5 MG IV PUSH ×5 (02:35→18:32)
[2020-08-17] MEDS: SODIUM CHLORIDE 0.9% IV 1,000 ML 125 ML IV CONT (02:36)
[2020-08-17 05:27] VITALS: BP 136/78; PULSE 89; RESP 14; TEMP 36.6; O2SAT 100
[2020-08-17 08:00] VITALS: BMI 53.3
[2020-08-17 09:15] LABS: Basophils Percent Auto 0.3 % (0.2-1.2); Eosinophils Percent Auto 0.4 % (0-4.4); Hematocrit 33.6 % (37.0-47.0); Hemoglobin 10.1 g/dL (12.0-15.0); Immature Granulocyte Absolute 0.03 K/mm3 (0.00-0.031); Immature Granulocyte Percent A 0.3 % (0-0.5); Lymphocytes Percent Auto 17.5 % (18.3-44.2); Mean Corpuscular HGB Conc 30.1 g/dl (32-36); Mean Corpuscular Hemoglobin 26.5 pg (26-34); Mean Corpuscular Volume 88.2 fl (80-100); Mean Platelet Volume 10.3 fl (7.4-10.4); Monocytes Absolute Auto 0.6 K/mm3 (0.1-0.6); Monocytes Percent Auto 6.1 % (2.6-8.5); Neutrophils Absolute Auto 6.9 K/mm3 (1.3-6.7); Neutrophils Percent Auto 75.4 % (45.5-73.1); Platelet Count Result 243 k/mm3 (150-375); Red Blood Count 3.81 M/mm3 (4.2-5.4); Red Cell Distribution Width 15.9 % (11.5-14.5); White Blood Count 9.2 K/mm3 (4.5-10.0)
[2020-08-17 09:27] LABS: Alanine Aminotransferase 38 U/L (4-35); Albumin Level 3.6 g/dL (3.5-5.1); Alkaline Phosphatase 57 U/L (38-126); Anion Gap 4 mmol/L (8-16); Aspartate Amino Transferase 45 U/L (14-36); Bilirubin,Total 0.5 mg/dL (0.2-1.3); Blood Urea Nitrogen 14 mg/dL (7-17); Calcium 8.2 mg/dL (8.4-10.2); Carbon Dioxide 26 mmol/L (22-30); Chloride 108 mmol/L (98-107); Estimated CRCL calculation 128 ml/min; Estimated Glomerular Filt Rate > 60; Glucose 94 mg/dL (65-105); Magnesium 1.8 mg/dL (1.6-2.3); Sodium 138 mmol/L (137-145)
[2020-08-17 09:46] LABS: Anisocytosis 1+ (NORMAL); Ovalocytes 1+ (NORMAL); Platelet Estimate Adequate (Adequate)
[2020-08-17] MEDS: LORazepam INJ (*CRX) 2 MG/ML VIAL 0.5 MG IV PUSH (11:57)
--- NOTE | 2020-08-17 12:14 | PM.CNGS ---
Assessment and Plan Assessment and plan (1) Partial obstruction of small intestine: Code(s): K56.600 - Partial intestinal obstruction, unspecified as to cause Status: Acute Assessment and Plan: CT reviewed and discussed with the patient. CT suggests partial small bowel obstruction with some small bowel wall thickening of some small bowel segments. This could be caused by intra-abdominal adhesions or related to her Crohn's disease. Patient refusing NG tube. Small bowel follow through ordered for today. Will await these results. If contrast moves through to the colon, then okay to start advancing her diet slowly. If this shows a high grade small bowel obstruction, then she may require exploratory surgery. I discussed this with the patient. Answered all questions. Will continue NPO status, IV fluids, analgesics, and antiemetics for now. Continue to follow with serial abdominal exams. (2) Crohn's disease: Code(s): K50.90 - Crohn's disease, unspecified, without complications Status: Chronic Assessment and Plan: Has been seen by GI since during previous admissions after moving to this area last year. She was diagnosed prior to her move, but it is not clear if her previous workup here has confirmed the diagnosis. Patient was previously on Imuran prior to her move. May benefit from steroids. Will consult GI for their recommendations regarding treatment for her Crohn's. (3) Morbid obesity with BMI of 45.0-49.9, adult: Code(s): E66.01 - Morbid (severe) obesity due to excess calories; Z68.42 - Body mass index [BMI] 45.0-49.9, adult Status: Acute (4) Tobacco abuse: Code(s): Z72.0 - Tobacco use Status: Acute Additional Plan Discussed the patient's case and plan of care with Dr. Rainey. Thank you for allowing us to see the patient in consultation and we will continue to follow along with you. History of Present Illness Consult details Consult date: 08/17/20 Reason for consult: other (Partial small bowel obstruction) Requesting physician: Johanna Berman MD Narrative: This is a 40-year-old female with a reported history of Crohn's disease and multiple small bowel obstructions who presented to the ER with complaints of abdominal pain and vomiting. She reports having a sudden onset of upper abdominal pain two days ago. She also had a few formed BMs that day and had recently started new medication for menorrhagia, therefore she attributed her symptoms to the medication. When symptoms persisted, she presented to the ER for further evaluation. CT scan of the abdomen and pelvis showed a partial small bowel obstruction. Labs revealed a white blood cell count of 12,600. She was admitted to the Hospitalist and made NPO. She has refused an NG tube. Our service was consulted for the partial small bowel obstruction and a small bowel follow through was ordered for this morning. She is now seen on the medical floor after taking the oral contrast and is complaining of increased abdominal pain and severe nausea. She is also feeling anxious due to the pain. She feels bloated. She denies flatus or BM since onset of symptoms two days ago. No other complaints at this time. Also to note, the patient has been seen by our service in December 2019 for a small bowel obstruction and Crohn's flare up. She was treated by GI for the Crohn's and the bowel obstruction resolved with conservative measures. She has a history of multiple small bowel obstructions due to intra-abdominal adhesions in the past few years requiring hospitalization and on 2 occasions requiring exploratory laparotomy with adhesiolysis. She reportedly was diagnosed with Crohn's disease about 1 year ago prior to moving into the area. She was started on azathioprine prior to her move in December from her previous Dispensary Attendant. Since then, she has been working to establish care with a Dispensary Attendant in this area from a recent move and has not found anyone who accepts he
--- NOTE | 2020-08-17 13:22 | PM.IMPN ---
Progress Note: A&P Assessment and Plan (1) Partial obstruction of small intestine: Code(s): K56.600 - Partial intestinal obstruction, unspecified as to cause Status: Acute Assessment and Plan: Recurrent partial SBO. General surgery consulted and appreciate input; agree with GI consultation given her Crohn's history. She is refusing NG tube thus far Will continue with IV fluids Continue bowel rest Will adjust pain medications; avoid excessive narcotics if tolerable Monitor (2) Menorrhagia: Code(s): N92.0 - Excessive and frequent menstruation with regular cycle Status: Acute Assessment and Plan: H&H stable. 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 Patient is in severe pain at time of visit. She points to the upper abdomen and hurts primarily in epigastric region, radiating bilaterally. Pain comes and goes spontaneously. Feels pain medication wears off quickly. Pain was minimal this morning, but worsened since her SBS this morning. Patient feels nauseas but no vomiting. She feels less anxious after getting IV ativan. No other complaints. She still does not want an NG tube. Denies f/c/s, headaches, dizziness, lightheadedness, changes in v/h, cp/palpitations, sob/cough, dysuria, hematuria, cloudy urine, calf pain/swelling. Review of Systems Review of Systems: All systems reviewed & are unremarkable except as noted in HPI and below Exam Narrative: Exam Narrative: General: Patient resting supine in bed, appearing to be in significant pain and crying, grasping at her abdomen HEENT: Normocephalic, EOMI, oral mucosa moist. Cardiovascular: Rate and rhythm are regular. No notable murmur, rub, or gallop. Respiratory: Lungs clear to auscultation all hurd. Non-labored breathing. Abdomen: Soft, obese abdomen, ttp diffuse upper abdomen, non-distended, bowel sounds present. Extremities: Peripheral pulses intact. No edema. NTTP b/l calves Neuro: No focal neurological deficits. Speech is clear. Objective Data Vital Signs Vital Signs: Last Vital Signs Temp 97.8 F 08/17/20 05:27 Pulse 89 08/17/20 05:27 Resp 14 08/17/20 05:27 BP 136/78 08/17/20 05:27 Pulse Ox 100 08/17/20 05:27 Intake/Output Intake/Output: Intake & Output 08/14/20 08/15/20 08/16/20 08/17/20 23:59 23:59 23:59 23:59 Intake Total 1000 1000 Output Total 400 Balance 1000 600 Meds/Results Medications: Active Medications Generic Name Dose Route Start Last Admin Trade Name Freq PRN Reason Stop Dose Admin Hydromorphone HCl 0.5 mg 08/17/20 13:19 Hydromorphone Hcl Inj (*Crx) 1 Mg/Ml Syr IV PUSH Q2H PRN Pain Rated 6 or Greater Sodium Chloride 1,000 mls @ 125 mls/hr 08/16/20 16:30 08/17/20 02:36 Normal Saline Iv IV CONT 125 mls/hr .Q8H PAULA Administration Acetaminophen 1,000 mg in 100 mls @ 400 mls/hr 08/17/20 13:20 Ofirmev 1,000 Mg Ivpb IVPB 08/18/20 13:21 Q6H PAULA Ketorolac Tromethamine 30 mg 08/17/20 13:17 Ketorolac 15 Mg/Ml Vial (*Bkc) IV PUSH 08/17/20 13:18 ONCE ONE Lorazepam 0.5 mg 08/17/20 11:51 08/17/20 11:57 Lorazepam Inj (*Crx) 2 Mg/Ml Vial IV PUSH 0.5 mg Q6H PRN Administration Anxiety Ondansetron HCl 4 mg 08/16/20 19:47 08/17/20 10:20 Ondansetron Inj 4 Mg/2 Ml [address]
[2020-08-17 13:45] VITALS: BP 152/93; PULSE 82; RESP 18; TEMP 36.1; O2SAT 99
[2020-08-17] MEDS: SODIUM CHLORIDE 0.9% IV 1,000 ML 100 ML IV CONT (15:26)
[2020-08-17] MEDS: KETOROLAC 15 MG/ML VIAL (*BKC) 30 MG IV PUSH (15:54)
--- NOTE | 2020-08-17 16:03 | WPDGICN ---
Assessment and Plan Assessment and plan (1) Morbid obesity with BMI of 45.0-49.9, adult: Code(s): E66.01 - Morbid (severe) obesity due to excess calories; Z68.42 - Body mass index [BMI] 45.0-49.9, adult Status: Acute (2) Partial small bowel obstruction: Code(s): K56.600 - Partial intestinal obstruction, unspecified as to cause Status: Acute Assessment and Plan: Patient appears to have resolving partial small bowel obstruction. Most likely this is on the basis of adhesions. She has had multiple prior surgeries with adhesive lysis in the past. Current x-rays and lab tests performed recently fail to confirm any evidence of inflammatory bowel disease. I have asked the patient to request old records that prompted her previous physician to raise the question of inflammatiory bowel disease . At present there appears to be no evidence for inflammatory bowel disease. Patient's partial small-bowel obstruction appears to be resolving. I would recommend low residue diet be considered. GI Consult Note Consult date/time: 08/17/20 16:03 HPI: Roma Rowan is a 40 year old female I am asked to see at the request of the hospitalist service because of partial small-bowel obstruction. Patient admitted the hospital with abdominal distention pain and no bowel movements for several days. Small-bowel series was performed in subsequently she has passed several stools. X-ray reveals either narrowing or spasm in the distal small bowel. There been no evidence of skip lesions. Patient has been admitted hospital several times since April of last year. None of the x-rays were felt consistent with Crohn's disease,. Inflammatory bowel disease serology is also been negative in unremarkable. Patient states she has undergone multiple laparoscopic surgeries to relieve adhesions in the past. Apparently previously she lived in [facility] and at 1 point there was consideration for Crohn's disease. Patient was placed on prednisone in [place] and these have subsequently been discontinued. Patient states she has had no change in her symptoms with or without this medications. Patient denies any obvious signs of bleeding. Her family history is negative for inflammatory bowel disease. She has previously had cholecystectomy. Exploratory laparotomy. Adhesive lysis times at least 2. She has had a laparoscopic hernia repair with mesh. And appendix this removed during 1 of her surgeries. Review of Systems Review of Systems: All systems reviewed & are unremarkable except as noted in HPI and below PMFSH Past Medical History Medical History 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 Anemia Crohn's disease GERD with esophagitis Hepatic steatosis History of small bowel obstruction Has been treated conservatively and also required surgical intervention x 2 with adhesiolysis. Morbid obesity Nephrolithiasis Surgical History Surgical History History of appendectomy Appendix removed during 2nd exploratory laparotomy. History of cholecystectomy History of exploratory laparotomy Has had what sounds like an exploratory laparotomy with adhesiolysis x 2 in [facility]. History of tonsillectomy Status post laparoscopic hernia repair With mesh. Family History Family History Father Diabetes mellitus Mother Hypertension Sibling Crohn's colitis Social History Social History Social History: Surrogate decision maker: javan Kurtz. Code status: Full code. she works at [employer] She is a full code . She is single and has no children. Smoking packs per day: 0.2 Smoking cigarettes per day: 4.0 Years smoked: 16
--- NOTE | 2020-08-17 16:30 | PC.NURSE ---
Fax sent to [facility] for Medical Records per MD request. Waiting for paperwork to be faxed back.
--- NOTE | 2020-08-17 18:50 | PC.NURSE ---
Patient has Offirmev due at 1800. Patient declined and requested stronger pain medication. I left it available for the shift production associate nurse if the patient changes her mind.
[2020-08-17 19:37] VITALS: BP 143/83; PULSE 75; RESP 18; TEMP 36.1; O2SAT 99
[2020-08-18] MEDS: HYDROmorphone HCL INJ (*CRX) 1 MG/ML SYR 0.5 MG IV PUSH ×3 (02:17→19:48)
[2020-08-18] MEDS: SODIUM CHLORIDE 0.9% IV 1,000 ML 100 ML IV CONT (02:17)
--- NOTE | 2020-08-18 05:10 | PC.NURSE ---
Patient's IV access infiltrated and after multiple unsuccessful attempts, requires ultrasound for IV placement, as was the case in the previous peripheral access. Timin notified and okayed with no access until Kristie placement this morning.
--- NOTE | 2020-08-18 06:07 | PC.NURSE ---
Patient has scheduled ofirmev at 0600 but has no current IV access. Left available for patient if needed after new IV is placed.
[2020-08-18 06:10] LABS: Basophils Percent Auto 0.5 % (0.2-1.2); Eosinophils Absolute Auto 0.1 K/mm3 (0-0.3); Hemoglobin 10.1 g/dL (12.0-15.0); Immature Granulocyte Absolute 0.03 K/mm3 (0.00-0.031); Immature Granulocyte Percent A 0.4 % (0-0.5); Lymphocytes Percent Auto 25.9 % (18.3-44.2); Mean Corpuscular HGB Conc 30.6 g/dl (32-36); Mean Corpuscular Hemoglobin 26.2 pg (26-34); Mean Corpuscular Volume 85.7 fl (80-100); Mean Platelet Volume 8.9 fl (7.4-10.4); Monocytes Absolute Auto 0.4 K/mm3 (0.1-0.6); Monocytes Percent Auto 5.2 % (2.6-8.5); Neutrophils Absolute Auto 5.5 K/mm3 (1.3-6.7); Platelet Count Result 347 k/mm3 (150-375); Red Blood Count 3.85 M/mm3 (4.2-5.4); Red Cell Distribution Width 15.5 % (11.5-14.5); White Blood Count 8.1 K/mm3 (4.5-10.0)
[2020-08-18 06:11] VITALS: BP 133/78; PULSE 74; RESP 18; TEMP 36.6; O2SAT 98
[2020-08-18 06:24] LABS: Alanine Aminotransferase 48 U/L (4-35); Alkaline Phosphatase 71 U/L (38-126); Anion Gap 9 mmol/L (8-16); Aspartate Amino Transferase 51 U/L (14-36); Bilirubin,Total 0.6 mg/dL (0.2-1.3); Blood Urea Nitrogen 15 mg/dL (7-17); Calcium 8.9 mg/dL (8.4-10.2); Carbon Dioxide 25 mmol/L (22-30); Chloride 107 mmol/L (98-107); Estimated CRCL calculation 113 ml/min; Estimated Glomerular Filt Rate > 60; Glucose 83 mg/dL (65-105); Magnesium 1.9 mg/dL (1.6-2.3); Potassium 3.6 mmol/L (3.4-5.0); Sodium 141 mmol/L (137-145)
[2020-08-18 09:02] VITALS: O2SAT 96
[2020-08-18] MEDS: ONDANSETRON INJ 4 MG/2 ML VIAL IV PUSH (09:58)
--- NOTE | 2020-08-18 10:42 | PM.PNGS ---
Progress Note: A&P Assessment and Plan (1) Partial obstruction of small intestine: Code(s): K56.600 - Partial intestinal obstruction, unspecified as to cause Status: Acute Assessment and Plan: SBFT showed contrast reaching the colon between 1.5-2.5 hours with still dilated loops of small bowel. Patient is clinically improving and bowels are moving. Will start slowly advancing her diet. Would recommend a low fiber diet when discharged (patient has followed a low fiber diet in the past and is familiar with this). Encouraged to ambulate in the halls today. (2) Crohn's disease: Code(s): K50.90 - Crohn's disease, unspecified, without complications Status: Chronic Assessment and Plan: Appreciate GI's recommendations. Encouraged patient to establish care with a Automotive Glass Mechanic that accepts her insurance once discharged. (3) Morbid obesity with BMI of 45.0-49.9, adult: Code(s): E66.01 - Morbid (severe) obesity due to excess calories; Z68.42 - Body mass index [BMI] 45.0-49.9, adult Status: Acute (4) Tobacco abuse: Code(s): Z72.0 - Tobacco use Status: Acute Additional Plan Discussed the plan of care with Dr. Rainey. Subjective Subjective Date/Time Seen: 08/18/20 10:42 Patient reports: no new complaints, feels better, pain is less, flatus and bowel movement Interval history: Patient has had multiple BMs since SBFT study yesterday, last BM this morning. Reports significant improvement in her abdominal pain. Denies nausea this morning. Never had any vomiting yesterday after taking in the contrast. No other complaints at this time. Review of Systems Review of Systems: All systems reviewed & are unremarkable except as noted in HPI and below Exam Const: General: alert and awake Nutritional Appearance: obese morbidly obese Orientation/consciousness: patient oriented x3 GI: Inspection: non-distended and obesity GI Palp: Yes Soft to palpation, Yes Tenderness to palpation present (GI) (mild diffuse tenderness, much improved), No Guarding due to palpation present (GI) and No Rebound tenderness present Auscultation: normal bowel sounds Neuro: General: moves all extremities and no focal motor deficits Extrem: General: normal to inspection and no clubbing, cyanosis or edema Psych: Mental Status: mental status grossly normal Insight: Good insight present (Psych) Judgement: Good judgement present (Psych) Objective Data Vital Signs Vital Signs: Vital Signs - 24 hr 08/17/20 13:45 08/17/20 19:37 08/18/20 06:11 Temperature 96.9 F L 97 F L 97.8 F Pulse Rate 82 75 74 Respiratory Rate 18 18 18 Blood Pressure 152/93 H 143/83 H 133/78 Pulse Oximetry 99 99 98 08/18/20 09:02 Temperature Pulse Rate Respiratory Rate Blood Pressure Pulse Oximetry 96 Intake/Output Intake/Output: Intake & Output 08/15/20 08/16/20 08/17/20 08/18/20 23:59 23:59 23:59 23:59 Intake Total 1000 2100 1000 Output Total 1000 200 Balance 1000 1100 800 Meds/Results Medications: Active Medications Generic Name Dose Route Start Last Admin Trade Name Freq PRN Reason Stop Dose Admin Hydromorphone HCl 0.5 mg 08/17/20 13:19 08/18/20 09:54 Hydromorphone Hcl Inj (*Crx) 1 Mg/Ml Syr IV PUSH 0.5 mg Q2H PRN Administration Pain Rated 6 or Greater Sodium Chloride 1,000 mls @ 50 mls/hr 08/16/20 16:30 08/18/20 10:00 Normal Saline Iv IV CONT 100 mls/hr .Q20H PAULA Infusion Acetaminophen 1,000 mg in 100 mls @ 400 mls/hr 08/17/20 18:00 08/18/20 00:00 Ofirmev 1,000 Mg Ivpb IVPB 08/18/20 18:01 Not Given Q6HR PAULA Lorazepam 0.5 mg 08/17/20 11:51 08/17/20 11:57 Lorazepam Inj (*Crx) 2 Mg/Ml Vial IV PUSH 0.5 mg Q6H PRN Administration Anxiety Ondansetron HCl 4 mg 08/16/20 19:47 08/18/20 09:58 Ondansetron Inj 4 Mg/2 Ml Vial IV PUSH 4 mg Q4H PRN Administration Nausea And Vomiting Radiology Results: ITS Impressions Abdomen/Pelv
--- NOTE | 2020-08-18 11:35 | PM.IMPN ---
Progress Note: A&P Assessment and Plan (1) Partial obstruction of small intestine: Code(s): K56.600 - Partial intestinal obstruction, unspecified as to cause Status: Acute Assessment and Plan: Recurrent partial SBO. General surgery consulted and recommends advancing diet as tolerated as SBO seems to be improving based on symptoms. GI consulted and recommends no adjustments at this time. Will continue IV fluid hydration until she is able the tolerate advancement of her diet Started on clears. Will adjust pain medications; avoid excessive narcotics if tolerable Monitor (2) Menorrhagia: Code(s): N92.0 - Excessive and frequent menstruation with regular cycle Status: Acute Assessment and Plan: H&H stable. 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 Date of service 08/18/2020: She reports feeling better this morning after having some slight nausea and increased pain this morning. She did have a bowel movement today and otherwise not complain of any pain at this time. She denies any fevers, chills, chest pain, shortness of breath, cough, leg swelling, calf pain or any other symptoms at this time. Review of Systems Review of Systems: All systems reviewed & are unremarkable except as noted in HPI and below Exam Narrative: Exam Narrative: General: 40-year-old woman sitting up in bed, sitting up on her phone. Appears comfortable. In no acute distress. Skin: No jaundice or cyanosis. Good skin turgor. Neck: Full range of motion. Supple. Respiratory: Lungs are clear to auscultation bilaterally. No bony chest wall tenderness. Cardiovascular: The heart has a regular rate and rhythm without murmur. Lower extremities: No lower extremity edema. Distal pulses are easily palpated. No calf tenderness to palpation. Gastrointestinal: Tenderness to palpation diffusely to her abdomen. The abdomen is otherwise soft, nondistended with active bowel sounds. Psychiatric: Lucid and oriented. Memory intact. Neurologic: No focal deficits. Speech is clear. No facial drooping. Objective Data Vital Signs Vital Signs: Vital Signs - 24 hr 08/17/20 13:45 08/17/20 19:37 08/18/20 06:11 Temperature 96.9 F L 97 F L 97.8 F Pulse Rate 82 75 74 Respiratory Rate 18 18 18 Blood Pressure 152/93 H 143/83 H 133/78 Pulse Oximetry 99 99 98 08/18/20 09:02 Temperature Pulse Rate Respiratory Rate Blood Pressure Pulse Oximetry 96 Intake/Output Intake/Output: Intake & Output 08/15/20 08/16/20 08/17/20 08/18/20 23:59 23:59 23:59 23:59 Intake Total 1000 2100 1000 Output Total 1000 200 Balance 1000 1100 800 Meds/Results Medications: Active Medications Generic Name Dose Route Start Last Admin Trade Name Freq PRN Reason Stop Dose Admin Hydromorphone HCl 0.5 mg 08/17/20 13:19 08/18/20 09:54 Hydromorphone Hcl Inj (*Crx) 1 Mg/Ml Syr IV PUSH 0.5 mg Q2H PRN Administration Pain Rated 6 or Greater Sodium Chloride 1,000 mls @ 50 mls/hr 08/16/20 16:30 08/18/20 10:00 Normal Saline Iv IV CONT 100 mls/hr .Q20H PAULA Infusion Acetaminophen 1,000 mg in 100 mls @ 400 mls/hr 08/17/20 18:00 08/18/20 00:00 Ofirmev 1,000 Mg Ivpb IVPB 08/18/20 18:01
--- NOTE | 2020-08-18 12:12 | WPDGIPROGNO ---
Progress Note: A&P Assessment and Plan (1) Partial obstruction of small intestine: Code(s): K56.600 - Partial intestinal obstruction, unspecified as to cause Status: Acute Assessment and Plan: Resolved partial small bowel obstruction. Etiology unclear. Old records are requested regarding potential previous diagnosis of Crohn's disease. Currently this is felt unclear. Adhesions appear to be most likely etiology at this point. Agree with low-fiber diet. An outpatient follow-up. (2) Nausea & vomiting: Code(s): R11.2 - Nausea with vomiting, unspecified Status: Acute Assessment and Plan: Nausea vomiting has resolved. Likely result of her resolved partial small bowel obstruction. (3) Morbid obesity with BMI of 45.0-49.9, adult: Code(s): E66.01 - Morbid (severe) obesity due to excess calories; Z68.42 - Body mass index [BMI] 45.0-49.9, adult Status: Acute Assessment and Plan: Weight loss strongly encourage. Subjective Date/time seen: 08/18/20 12:12 Patient alert more comfortable today. Abdomen much softer and less tender today. Passing stool. Tolerating low fiber diet without much difficulty. Review of Systems Review of Systems: All systems reviewed & are unremarkable except as noted in HPI and below Exam Narrative: Exam Narrative: Physical exam patient is alert. Vital signs stable. HEENT exam she is anicteric. Lungs are clear. Heart without murmur. Abdomen obese. Bowel sounds are present softer. No organomegaly evident. Objective Data Vital Signs Vital Signs: Vital Signs - 24 hr 08/17/20 13:45 08/17/20 19:37 08/18/20 06:11 Temperature 96.9 F L 97 F L 97.8 F Pulse Rate 82 75 74 Respiratory Rate 18 18 18 Blood Pressure 152/93 H 143/83 H 133/78 Pulse Oximetry 99 99 98 08/18/20 09:02 Temperature Pulse Rate Respiratory Rate Blood Pressure Pulse Oximetry 96 Intake/Output Intake/Output: Intake & Output 08/15/20 08/16/20 08/17/20 08/18/20 23:59 23:59 23:59 23:59 Intake Total 1000 2100 1000 Output Total 1000 200 Balance 1000 1100 800 Meds/Results Medications: Active Medications Generic Name Dose Route Start Last Admin Trade Name Freq PRN Reason Stop Dose Admin Hydromorphone HCl 0.5 mg 08/17/20 13:19 08/18/20 09:54 Hydromorphone Hcl Inj (*Crx) 1 Mg/Ml Syr IV PUSH 0.5 mg Q2H PRN Administration Pain Rated 6 or Greater Sodium Chloride 1,000 mls @ 50 mls/hr 08/16/20 16:30 08/18/20 10:00 Normal Saline Iv IV CONT 100 mls/hr .Q20H PAULA Infusion Acetaminophen 1,000 mg in 100 mls @ 400 mls/hr 08/17/20 18:00 08/18/20 00:00 Ofirmev 1,000 Mg Ivpb IVPB 08/18/20 18:01 Not Given Q6HR PAULA Lorazepam 0.5 mg 08/17/20 11:51 08/17/20 11:57 Lorazepam Inj (*Crx) 2 Mg/Ml Vial IV PUSH 0.5 mg Q6H PRN Administration Anxiety Ondansetron HCl 4 mg 08/16/20 19:47 08/18/20 09:58 Ondansetron Inj 4 Mg/2 Ml Vial IV PUSH 4 mg Q4H PRN Administration Nausea And Vomiting Radiology Results: ITS Impressions Abdomen/Pelvis CT 08/16/20 15:29 IMPRESSION: Partial small bowel obstruction with transition zone in the left pelvic area Hepatic steatosis Status post cholecystectomy Small left adrenal probable adenoma Small sliding hiatal hernia Small Bowel X-Ray 08/17/20 11:51 IMPRESSION: 1. Dilated small bowel, consistent with adynamic ileus versus partial obstruction. Labs Labs: Laboratory Results - last 24 hr 08/18/20 08/18/20 05:26 05:26 WBC 8.1 RBC 3.85 L Hgb 10.1 L Hct 33.0 L MCV 85.7 MCH 26.2 MCHC 30.6 L RDW 15.5 H Plt Count 347 MPV 8.9 Immature Gran % (Auto) 0.4 Neut % (Auto) 67.0 Lymph % (Auto) 25.9 [place] % (Auto) 5.2 Eos % (Auto) 1.0 Baso % (Auto) 0.5 Lymph # (Auto) 2.10 [place] # (Auto) 0.4 Eos # (Auto) 0.1 Baso # (Auto) 0.0 Abs Immat Gran (auto) 0.03 Absolute Neuts (auto) 5.5 Absolute
[2020-08-18 14:00] VITALS: BP 146/82; PULSE 74; RESP 16; TEMP 36.3; O2SAT 100
[2020-08-18 21:26] VITALS: BP 146/65; PULSE 78; RESP 20; TEMP 36.6; O2SAT 100
[2020-08-19] MEDS: HYDROmorphone HCL INJ (*CRX) 1 MG/ML SYR 0.5 MG IV PUSH (00:15)
[2020-08-19] MEDS: LORazepam INJ (*CRX) 2 MG/ML VIAL 0.5 MG IV PUSH (00:16)
[2020-08-19 05:51] LABS: Hematocrit 28.6 % (37.0-47.0); Mean Corpuscular HGB Conc 31.5 g/dl (32-36); Mean Corpuscular Hemoglobin 26.3 pg (26-34); Mean Corpuscular Volume 83.6 fl (80-100); Platelet Count Result 298 k/mm3 (150-375); Red Blood Count 3.42 M/mm3 (4.2-5.4); White Blood Count 7.8 K/mm3 (4.5-10.0)
[2020-08-19 06:00] VITALS: BP 150/55; PULSE 82; RESP 16; TEMP 36.1; O2SAT 96
[2020-08-19 06:09] LABS: Alanine Aminotransferase 40 U/L (4-35); Albumin Level 3.5 g/dL (3.5-5.1); Alkaline Phosphatase 63 U/L (38-126); Anion Gap 5 mmol/L (8-16); Aspartate Amino Transferase 36 U/L (14-36); Bilirubin,Total 0.5 mg/dL (0.2-1.3); Blood Urea Nitrogen 11 mg/dL (7-17); Calcium 8.3 mg/dL (8.4-10.2); Carbon Dioxide 26 mmol/L (22-30); Chloride 105 mmol/L (98-107); Estimated CRCL calculation 128 ml/min; Estimated Glomerular Filt Rate > 60; Glucose 91 mg/dL (65-105); Potassium 3.7 mmol/L (3.4-5.0); Sodium 136 mmol/L (137-145)
--- NOTE | 2020-08-19 09:35 | PM.PNGS ---
Progress Note: A&P Assessment and Plan (1) Partial obstruction of small intestine: Code(s): K56.600 - Partial intestinal obstruction, unspecified as to cause Status: Acute Assessment and Plan: Okay to discharge from a surgical standpoint if tolerating low fiber diet later today. Would recommend continuing a low fiber diet on discharge. Follow-up only as needed. (2) Crohn's disease: Code(s): K50.90 - Crohn's disease, unspecified, without complications Status: Chronic Assessment and Plan: Recommend establishing care with a [facility] as an outpatient. (3) Morbid obesity with BMI of 45.0-49.9, adult: Code(s): E66.01 - Morbid (severe) obesity due to excess calories; Z68.42 - Body mass index [BMI] 45.0-49.9, adult Status: Acute (4) Tobacco abuse: Code(s): Z72.0 - Tobacco use Status: Acute Additional Plan Discussed the plan of care with Dr. Rainey. Subjective Subjective Date/Time Seen: 08/19/20 09:35 Patient reports: no new complaints, feels better, tolerating a regular diet, flatus and bowel movement Interval history: Patient feeling better again this morning. No abdominal pain, nausea, vomiting, or bloating. Still moving her bowels this morning. Tolerating full liquids and is ordering a low fiber tray this morning. Review of Systems Review of Systems: All systems reviewed & are unremarkable except as noted in HPI and below Exam Const: General: alert Orientation/consciousness: patient oriented x3 GI: Inspection: non-distended and obesity GI Palp: Yes Soft to palpation, Yes Tenderness to palpation present (GI) (very mild diffuse tenderness, much improved) and No Guarding due to palpation present (GI) Auscultation: normal bowel sounds Neuro: General: moves all extremities and no focal motor deficits Extrem: General: no clubbing, cyanosis or edema Psych: Appearance: grossly normal Mental Status: mental status grossly normal Insight: Good insight present (Psych) Judgement: Good judgement present (Psych) Objective Data Vital Signs Vital Signs: Vital Signs - 24 hr 08/18/20 14:00 08/18/20 21:26 08/19/20 06:00 Temperature 97.3 F L 97.9 F 97.0 F L Pulse Rate 74 78 82 Respiratory Rate 16 20 16 Blood Pressure 146/82 H 146/65 H 150/55 H Pulse Oximetry 100 100 96 Intake/Output Intake/Output: Intake & Output 08/16/20 08/17/20 08/18/20 08/19/20 23:59 23:59 23:59 23:59 Intake Total 1000 2100 1700 420 Output Total 1000 600 900 Balance 1000 1100 1100 -480 Meds/Results Medications: Active Medications Generic Name Dose Route Start Last Admin Trade Name Freq PRN Reason Stop Dose Admin Acetaminophen 650 mg 08/19/20 07:55 Acetaminophen 325 Mg Tablet PO Q4H PRN Mild Pain (1-3) or Fever Hydrocodone Bitart/Acetaminophen 1 tab 08/19/20 07:55 Hydrocodone/Acetaminophen (*Crx) 5-325 Mg Tablet PO Q4H PRN Pain Rated 7-10 Lorazepam 0.5 mg 08/17/20 11:51 08/19/20 00:16 Lorazepam Inj (*Crx) 2 Mg/Ml Vial IV PUSH 0.5 mg Q6H PRN Administration Anxiety Ondansetron HCl 4 mg 08/16/20 19:47 08/18/20 09:58 Ondansetron Inj 4 Mg/2 Ml Vial IV PUSH 4 mg Q4H PRN Administration Nausea And Vomiting Tramadol HCl 50 mg 08/19/20 07:55 Tramadol Hcl (*Crx) 50 Mg Tablet PO Q4H PRN Pain Rated 4-6 Radiology Results: ITS Impressions Abdomen/Pelvis CT 08/16/20 15:29 IMPRESSION: Partial small bowel obstruction with transition zone in the left pelvic area Hepatic steatosis Status post cholecystectomy Small left adrenal probable adenoma Small sliding hiatal hernia Small Bowel X-Ray 08/17/20 11:51 IMPRESSION: 1. Dilated small bowel, consistent with adynamic ileus versus partial obstruction. Labs Labs: Laboratory Results - last 24 hr 08/19/20 08/19/20 05:13 05:13 WBC 7.8 RBC 3.42 L Hgb 9.0 L Hct 28.6 L MCV 83.6 MCH 26.3 MCHC 31.5 L
--- NOTE | 2020-08-19 10:40 | WPDGIPROGNO ---
Progress Note: A&P Assessment and Plan (1) Morbid obesity with BMI of 45.0-49.9, adult: Code(s): E66.01 - Morbid (severe) obesity due to excess calories; Z68.42 - Body mass index [BMI] 45.0-49.9, adult Status: Acute Assessment and Plan: Weight loss is strongly encouraged. (2) Partial small bowel obstruction: Code(s): K56.600 - Partial intestinal obstruction, unspecified as to cause Status: Acute Assessment and Plan: partial small-bowel obstruction now resolved. Etiology appears to be from adhesions. She has had multiple procedures for lysis of adhesions. Crohn's disease has been suggested but no evidence to support this at present. Old records have been requested. Plan to continue low residue diet discharge when stable. Follow up as an outpatient. Old records are pending. Subjective Date/time seen: 08/19/20 10:40 Patient feels much better today. She denies abdominal pain. Tolerating diet. Anxious to the discharge. Review of Systems Review of Systems: All systems reviewed & are unremarkable except as noted in HPI and below Exam Narrative: Exam Narrative: Physical exam reveals her to be alert. Vital signs are stable. Lungs are clear. Heart without murmur. Abdomen is obese. Bowel sounds are present soft nontender with no organomegaly. Objective Data Vital Signs Vital Signs: Vital Signs - 24 hr 08/18/20 14:00 08/18/20 21:26 08/19/20 06:00 Temperature 97.3 F L 97.9 F 97.0 F L Pulse Rate 74 78 82 Respiratory Rate 16 20 16 Blood Pressure 146/82 H 146/65 H 150/55 H Pulse Oximetry 100 100 96 Intake/Output Intake/Output: Intake & Output 08/16/20 08/17/20 08/18/20 08/19/20 23:59 23:59 23:59 23:59 Intake Total 1000 2100 1700 420 Output Total 1000 600 900 Balance 1000 1100 1100 -480 Meds/Results Medications: Active Medications Generic Name Dose Route Start Last Admin Trade Name Freq PRN Reason Stop Dose Admin Acetaminophen 650 mg 08/19/20 07:55 Acetaminophen 325 Mg Tablet PO Q4H PRN Mild Pain (1-3) or Fever Hydrocodone Bitart/Acetaminophen 1 tab 08/19/20 07:55 Hydrocodone/Acetaminophen (*Crx) 5-325 Mg Tablet PO Q4H PRN Pain Rated 7-10 Lorazepam 0.5 mg 08/17/20 11:51 08/19/20 00:16 Lorazepam Inj (*Crx) 2 Mg/Ml Vial IV PUSH 0.5 mg Q6H PRN Administration Anxiety Ondansetron HCl 4 mg 08/16/20 19:47 08/18/20 09:58 Ondansetron Inj 4 Mg/2 Ml Vial IV PUSH 4 mg Q4H PRN Administration Nausea And Vomiting Tramadol HCl 50 mg 08/19/20 07:55 Tramadol Hcl (*Crx) 50 Mg Tablet PO Q4H PRN Pain Rated 4-6 Radiology Results: ITS Impressions Abdomen/Pelvis CT 08/16/20 15:29 IMPRESSION: Partial small bowel obstruction with transition zone in the left pelvic area Hepatic steatosis Status post cholecystectomy Small left adrenal probable adenoma Small sliding hiatal hernia Small Bowel X-Ray 08/17/20 11:51 IMPRESSION: 1. Dilated small bowel, consistent with adynamic ileus versus partial obstruction. Labs Labs: Laboratory Results - last 24 hr 08/19/20 08/19/20 05:13 05:13 WBC 7.8 RBC 3.42 L Hgb 9.0 L Hct 28.6 L MCV 83.6 MCH 26.3 MCHC 31.5 L RDW 15.0 H Plt Count 298 MPV 9.0 Sodium 136 L Potassium 3.7 Chloride 105 Carbon Dioxide 26 Anion Gap 5 L BUN 11 Creatinine 0.70 Estim Creat Clear Calc 128 Estimated GFR > 60 Glucose 91 Calcium 8.3 L Total Bilirubin 0.5 AST 36 ALT 40 H Alkaline Phosphatase 63 Total Protein 7.0 Albumin 3.5
--- NOTE | 2020-08-19 13:12 | PM.DS ---
DS: Admitting Diagnosis Admitting Diagnosis Admitting Diagnosis: Abdominal pain DS: Discharge Diagnosis Discharge Diagnosis (1) Partial obstruction of small intestine: Code(s): K56.600 - Partial intestinal obstruction, unspecified as to cause Status: Acute Assessment and Plan: Recurrent partial SBO. General surgery consulted and advance diet to low fiber which she will continue as an outpatient. GI consulted and recommends no adjustments at this time. She is feeling much better at this time. She is stable for discharge to continue on low-fiber diet and follow-up with GI specialist as an outpatient who takes her insurance. She will take [id number] pain medications as needed for abdominal discomfort. (2) Menorrhagia: Code(s): N92.0 - Excessive and frequent menstruation with regular cycle Status: Acute Assessment and Plan: H&H stable. US pelvic/transvaginal 08/11 revealed thickened endometrial echo measuring up to 2.1 cm AP dimension; endometrial malignancy is not excluded and K- 2.9 cm left ovarian cyst She is to follow up with her [facility] as an outpatient (3) Tobacco abuse: Code(s): Z72.0 - Tobacco use Status: Acute Assessment and Plan: Encourage smoking cessation Will provide nicotine patch if desired DS: Summary Hospital Course Hospital Course: Roma Rowan is a 40 year old female I am asked to see at the request of the hospitalist service for abdominal pain. Vital signs showed she was afebrile, normal heart rate, respiratory rate, blood pressure, oxygen saturation 99% on room air. Initial labs showed normocytic anemia with a hemoglobin of 10, no differential. Normal coag panel normal CMP other than slightly elevated LFTs which she has had the past. Normal TSH. Urinalysis showed no acute infection. CT abdomen showed partial small-bowel obstruction with transition zone in the left pelvic area. She was admitted for small-bowel obstruction with a consult to GI and surgery. During her hospitalization she was slowly advanced with her diet is now tolerating food without any issues. She is having bowel movements. She is ready for discharge at this time to continue low fat diet and follow-up with a GI specialist in the future that takes her insurance. Patient understands and agrees the plan all questions answered. Status at Discharge Cognitive/behavioral status at discharge: Stable, improved. Time Spent with Patient Time attestation: Total time spent providing and/or coordinating discharge services: 33 Time spent: Greater than 30 minutes Exam Narrative: Exam Narrative: General: 40-year-old woman laying on her left side in bed taking a nap. Appears comfortable. In no acute distress. Skin: No jaundice or cyanosis. Good skin turgor. Neck: Full range of motion. Supple. Respiratory: Lungs are clear to auscultation bilaterally. No bony chest wall tenderness. Cardiovascular: The heart has a regular rate and rhythm without murmur. Lower extremities: No lower extremity edema. Distal pulses are easily palpated. No calf tenderness to palpation. Gastrointestinal: Slight tenderness to palpation diffusely to her abdomen. The abdomen is otherwise soft, nondistended with active bowel sounds. Psychiatric: Lucid and oriented. Memory intact. Neurologic: No focal deficits. Speech is clear. No facial drooping. DS: Data Data Completed and Pending Labs on day of discharge: Labs from last 24 hours 08/19/20 08/19/20 05:13 05:13 WBC 7.8 RBC 3.42 L Hgb 9.0 L Hct 28.6 L MCV 83.6 MCH 26.3 MCHC 31.5 L RDW 15.0 H Plt Count 298 MPV 9.0 Sodium 136 L Potassium 3.7 Chloride 105 Carbon Dioxide 26 Anion Gap 5 L BUN 11 Creatinine 0.70 Estim Creat Clear Calc 128 Mariajose
== END 2020-08-19 14:50 | disposition home or self-care (01) | DRG 247 ==
LOC: ANHED 16:33 → ANH3MED 18:29
PROVIDERS: Emergency Medicine; Physician Assistant; Admitting Provider Family Medicine; Emergency Provider General Practice; PCP Family Medicine; Visit Provider Physician Assistant
DX: K56.600 Partial intestinal obstruction, unspecified as to cause (principal); E66.01 Morbid (severe) obesity due to excess calories; Z68.43 Body mass index [BMI] 50.0-59.9, adult; N92.0 Excessive and frequent menstruation with regular cycle; F17.210 Nicotine dependence, cigarettes, uncomplicated; K21.00 Gastro-esophageal reflux disease with esophagitis, without bleeding; Z79.899 Other long term (current) drug therapy; Z88.0 Allergy status to penicillin; Z88.5 Allergy status to narcotic agent
CPT/HCPCS: 36415; 74177; 74250; 80053; 81001; 81025; 83690; 83735; 85025; 85027; 96361; 96374; 96375; 96376; 99285; G0378; G0379; J0131; J1170; J1885; J2060; J2270; J2405; J7030; J7120; Q9967

== ENCOUNTER 2021-05-10 03:35 | Emergency (ER) | payer OTHER, MEDICAID, SELFPAY ==
[2021-05-10] VITALS (25 sets, daily range): BP systolic 139–183; BP diastolic 73–103; PULSE 71–102; RESP 9–26; TEMP 36.5–36.6; O2SAT 96–100
--- NOTE | ~2021-05-10 | CT_ITS ---
EXAMINATION: CT abdomen pelvis w con INDICATION: Abdominal pain TECHNIQUE: Computed tomographic images of the abdomen and pelvis were obtained after the administrati on of 140 cc of Omnipaque 350 intravenous contrast. The dose-length product (DLP) was 1558.01 mGy-cm. Automated exposure control and iterative reconstruction technique were employed. COMPARISON: 08/16/2020 FINDINGS: Minimal dependent atelectasis is present in the lung bases. The heart size is normal. The g allbladder is surgically absent. The liver, spleen, pancreas, and adrenal glands are normal. Nonobstr ucting stones in the upper pole of the left kidney measure up to 9 mm. The right kidney is unremarkab le. There is mild left inguinal adenopathy, likely reactive. There is no free intraperitoneal gas or evidence of bowel obstruction. IMPRESSION: 1. No CT correlate for the patient's symptoms. Reviewed, dictated and finalized at location A.
--- NOTE | 2021-05-10 04:02 | PC.NURSE ---
Pt arrives in ED c/o Pain all over . hx of abd surgeries with adhesions and mesh repair at multiple facilities. reports she was just admitted and d/c from [facility] in [place] for SBO, which resolved c NG tube and bowel rest. today pain is not similar to prior bowel obstruction pain, but is limited to her lower abd skin, which is pink in color but without warmth/edema/streaking. she reports that she is having pain everywhere and is tearful and moaning on arrival. concerned that she has infection everywhere which is r/t cellulitis on lower abd. morbidly obese. restless.
--- NOTE | 2021-05-10 04:51 | ED.GENADULT ---
HPI - General Adult General Chief complaint: Unspecified <Sherwin Arevalo MD - Last Filed: 05/10/21 04:53> Stated complaint: cellulitis? I have an infection in my whole body <Sherwin Arevalo MD - Last Filed: 05/10/21 04:53> Time Seen by Provider: 05/10/21 03:44 <Sherwin Arevalo MD - Last Filed: 05/10/21 04:53> History of Present Illness HPI narrative: Patient 41-year-old female presents to emergency department with chief complaint of abdominal pain nausea and vomiting. Patient reports she has history of a partial small bowel obstruction and she has had scar tissue develop after she had a hernia repair in the past patient reports that she was at [facility] for a bowel obstruction and was discharged on the . Patient states she is having worsening abdominal pain having nausea reports symptoms or not improved by anything nor they worsened by anything <Sherwin Arevalo MD - Last Filed: 05/10/21 04:53> Related Data Home medications: Home Medications Medication Instructions Recorded Confirmed pantoprazole [Protonix] 40 mg PO BID 08/16/20 08/16/20 <Sherwin Arevalo MD - Last Filed: 05/10/21 04:53> Allergies/adverse reactions: Allergies Allergy/AdvReac Type Severity Reaction Status Date / Time Penicillins Allergy Unknown Rash Verified 05/10/21 03:54 morphine Allergy Nausea and Verified 05/10/21 03:54 Vomiting <Sherwin Arevalo MD - Last Filed: 05/10/21 04:53> Review of Systems Review of Systems: A 10 system review of systems was completed on the patient and is negative except for what is stated in the HPI. Nursing and ancillary documentation was reviewed. <Sherwin Arevalo MD - Last Filed: 05/10/21 04:53> [facility] Past Medical History Medical History: Medical History 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 Anemia Crohn's disease GERD with esophagitis Hepatic steatosis History of small bowel obstruction Has been treated conservatively and also required surgical intervention x 2 with adhesiolysis. Morbid obesity Nephrolithiasis <Sherwin Arevalo MD - Last Filed: 05/10/21 04:53> Surgical History Surgical History: Surgical History History of appendectomy Appendix removed during 2nd exploratory laparotomy. History of cholecystectomy History of exploratory laparotomy Has had what sounds like an exploratory laparotomy with adhesiolysis x 2 in [facility]. History of tonsillectomy Status post laparoscopic hernia repair With mesh. <Sherwin Arevalo MD - Last Filed: 05/10/21 04:53> Family History Family History: Family History Father Diabetes mellitus Mother Hypertension Sibling Crohn's colitis <Sherwin Arevalo MD - Last Filed: 05/10/21 04:53> Social History Social History: Social History Social History: Surrogate decision maker: javan Kurtz. Code status: Full code. she works at [employer]. She is a full code . She is single and has no children. Smoking packs per day: 0.2 Smoking cigarettes per day: 4.0 Years smoked: 16 Smoking pack-years: 3.20 Smoking status: Current every day smoker Tobacco type: cigarettes Second hand tobacco smoke exposure: Yes Smoking end date: 11/17/19 Alcohol intake: current Drinks per week: 2 Substance use: current Substance use type: marijuana Other substance usage details: smokes marijauna every day Last use: 12/17/19 Additional living arrangements comments: Lives in [place] with her amanda. Recently moved to the area from [facility]. Additi
--- NOTE | 2021-05-10 05:14 | PC.NURSE ---
Multiple attempts for IV access and blood specimen for lab unsuccessful. IV access attempted by 3 RNs. Pt difficult stick. Manager Port currently attempting IV access. ED MD notified of delay.
[2021-05-10] MEDS: HYDROmorphone HCL INJ (*CRX) 1 MG/ML SYR IV PUSH ×3 (05:24→08:27)
[2021-05-10] MEDS: ONDANSETRON INJ 4 MG/2 ML VIAL IV PUSH (05:25)
[2021-05-10] MEDS: SODIUM CHLORIDE 0.9% IV 1,000 ML 999 ML IV CONT (05:25)
[2021-05-10 05:34] LABS: Basophils Percent Auto 0.2 % (0.2-1.2); Eosinophils Percent Auto 0.3 % (0-4.4); Hematocrit 34.6 % (37.0-47.0); Hemoglobin 10.8 g/dL (12.0-15.0); Immature Granulocyte Absolute 0.13 K/mm3 (0.00-0.031); Immature Granulocyte Percent A 0.8 % (0-0.5); Lymphocytes Absolute Auto 2.58 K/mm3 (0.9-3.2); Lymphocytes Percent Auto 16.1 % (18.3-44.2); Mean Corpuscular HGB Conc 31.2 g/dl (32-36); Mean Corpuscular Hemoglobin 25.8 pg (26-34); Mean Corpuscular Volume 82.6 fl (80-100); Mean Platelet Volume 9.3 fl (7.4-10.4); Monocytes Absolute Auto 0.9 K/mm3 (0.1-0.6); Monocytes Percent Auto 5.3 % (2.6-8.5); Neutrophils Absolute Auto 12.4 K/mm3 (1.3-6.7); Neutrophils Percent Auto 77.3 % (45.5-73.1); Platelet Count Result 319 k/mm3 (150-375); Red Blood Count 4.19 M/mm3 (4.2-5.4); Red Cell Distribution Width 19.8 % (11.5-14.5)
[2021-05-10 05:51] LABS: Lactic Acid Reflex 1.5 mmol/L (0.7-2.1)
[2021-05-10 05:59] LABS: Estimated CRCL calculation 108 ml/min; Estimated Glomerular Filt Rate > 60
--- NOTE | 2021-05-10 06:11 | PC.NURSE ---
Pt at CT scan. Unable to provide urine sample for test, but signed radiology form stating no chance of prior to scan.
[2021-05-10 07:26] LABS: Add Urine Microscopic? NO; Appearance Urine Clear (Clear); Bilirubin Urine Negative (Negative); Blood Urine Negative (Negative); Color Urine Yellow (Yellow); Glucose Urine UA Negative (Negative); Ketones Urine Negative (Negative); Leukocyte Esterase Ur Negative LEU/UL (Negative); Mucus Urine Rare /lpf; Nitrate Urine Negative (Negative); Protein Urine Negative (Negative); RBC Urine 0-2 /hpf (0-2); Squamous Epithelial Cell Urine Many /hpf (Few); Urobilinogen Urine Negative mg/dL (<2.0); WBC Urine 0-3 /hpf
[2021-05-10 07:34] LABS: Alanine Aminotransferase 31 U/L (4-35); Albumin Level 4.1 g/dL (3.5-5.1); Alkaline Phosphatase 67 U/L (38-126); Anion Gap 11 mmol/L (8-16); Aspartate Amino Transferase 34 U/L (14-36); Bilirubin,Total 0.4 mg/dL (0.2-1.3); Blood Urea Nitrogen 14 mg/dL (7-17); Carbon Dioxide 22 mmol/L (22-30); Chloride 107 mmol/L (98-107); Estimated CRCL calculation 121 ml/min; Estimated Glomerular Filt Rate > 60; Glucose 113 mg/dL (65-110); Lipase 201 U/L (23-300); Potassium 4.3 mmol/L (3.4-5.0); Sodium 140 mmol/L (137-145)
== END 2021-05-10 08:48 | disposition home or self-care (01) ==
PROVIDERS: Emergency Medicine; Emergency Provider Emergency Medicine; PCP Family Medicine
DX: L03.311 Cellulitis of abdominal wall (principal); K50.90 Crohn's disease, unspecified, without complications; K21.00 Gastro-esophageal reflux disease with esophagitis, without bleeding; E66.01 Morbid (severe) obesity due to excess calories; Z68.43 Body mass index [BMI] 50.0-59.9, adult; Z87.442 Personal history of urinary calculi; Z87.891 Personal history of nicotine dependence
CPT/HCPCS: 36415; 74177; 80053; 81003; 83605; 83690; 85025; 96361; 96374; 96375; 96376; 99284; J1170; J2405; J7030; Q9967

== ENCOUNTER 2022-08-13 10:15 | Observation (INO) | payer OTHER, SELFPAY ==
[2022-08-13] VITALS (23 sets, daily range): BP systolic 116–157; BP diastolic 59–91; PULSE 65–93; RESP 14–27; TEMP 36.2–36.6; O2SAT 97–100
--- NOTE | ~2022-08-13 | CT_ITS ---
EXAMINATION: CT abdomen pelvis w con DATE: 08/13/2022 12:02 INDICATION: Abdomen pain TECHNIQUE: Computed tomography (CT) of the abdomen and pelvis was performed with 100 cc Omnipaque 350 intravenous contrast. The dose-length product was 1502.77 mGy-cm. Automated exposure control and ite rative reconstruction technique were employed. COMPARISON: CT dated 05/10/2021 FINDINGS: Lung bases are unremarkable. Heart size normal. No significant pleural or pericardial effus ion. Status post cholecystectomy. The liver, spleen, pancreas, right adrenal gland and right kidney a re unremarkable. There are multiple nonobstructing left renal stones. No hydronephrosis. There is louisa e fluid in the abdomen and pelvis. There is extensive small bowel wall thickening and mucosal enhance ment primarily involving the jejunum, suspicious for enteritis. No free air. There is a small low-den sity mass in the left adrenal gland, likely benign adenoma. There are uterine fibroids. No acute osse ous abnormality. No significant vascular abnormality. No lymphadenopathy. IMPRESSION: 1. Extensive small bowel wall thickening and enhancement, suspicious for enteritis. No definite obstr uction. 2: Nonobstructing left nephrolithiasis. 3: Free fluid in the abdomen and pelvis, likely reactive. Reviewed, dictated and finalized at location A. L TESTER IMPRESSION: 1. Extensive small bowel wall thickening and enhancement, suspicious for enteri tis. No definite obstruction. 2: Nonobstructing left nephrolithiasis. 3: Free fluid in the abdomen and pelvis, likely reactive.
--- NOTE | 2022-08-13 11:03 | ED.ABDPAIN ---
HPI - Abdominal Pain General Chief Complaint: Abdominal Pain Stated Complaint: CHRON'S FLARE Time Seen by Provider: 08/13/22 10:50 Source: RN notes reviewed History of Present Illness HPI narrative: Patient presents emergency room from home for abdominal pain. Patient states symptoms again approximately 4 days ago. Abdominal pain is diffuse throughout the abdomen described as cramping has been associate with nausea vomiting. Patient states she has not had a bowel movement for the past 3 days. Patient has a history of Crohn's disease and is followed by Dr. Marks states she does have a history of recurrent small bowel obstructions. She denies any fevers or chills, chest pain shortness of breath or any other symptoms states she last took Zofran at 3 AM this morning Related Data Home Medications Medication Instructions Recorded Confirmed pantoprazole 40 mg tablet,delayed 40 mg PO BID 08/16/20 08/16/20 release (Protonix) Allergies Allergy/AdvReac Type Severity Reaction Status Date / Time Penicillins Allergy Unknown Rash Verified 05/10/21 03:54 morphine Allergy Nausea and Verified 05/10/21 03:54 Vomiting Review of Systems Review of Systems: Gen.: Denies fevers or chills ENT: Denies congestion Respiratory: Denies shortness of breath or cough CV: Denies chest pain or palpitations GI: See HPI Musculoskeletal: Denies back pain or muscle pain Neuro: Denies numbness, tingling, weakness or focal weakness Skin: Denies rash Except as documented, all other systems reviewed and negative ON LICENSE OF [facility] Past Medical History Medical History 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 Anemia Crohn's disease GERD with esophagitis Hepatic steatosis History of small bowel obstruction Has been treated conservatively and also required surgical intervention x 2 with adhesiolysis. Morbid obesity Nephrolithiasis Surgical History Surgical History History of appendectomy Appendix removed during 2nd exploratory laparotomy. History of cholecystectomy History of exploratory laparotomy Has had what sounds like an exploratory laparotomy with adhesiolysis x 2 in [facility]. History of tonsillectomy Status post laparoscopic hernia repair With mesh. Family History Family History Father Diabetes mellitus Mother Hypertension Sibling Crohn's colitis Social History Social History Social History: Surrogate decision maker: javan Kurtz. Code status: Full code. she works at [employer]. She is a full code . She is single and has no children. Smoking packs per day: 0.2 Smoking cigarettes per day: 4.0 Years smoked: 16 Smoking pack-years: 3.20 Smoking status: Current every day smoker Tobacco type: cigarettes Second hand tobacco smoke exposure: Yes Smoking end date: 11/17/19 Alcohol intake: current Drinks per week: 2 Substance use: current Substance use type: marijuana Other substance usage details: smokes marijauna every day Last use: 12/17/19 Living arrangements: with family Additional living arrangements comments: Lives in [place] with her amanda. Recently moved to the area from [facility]. Occupation/Education: other Additional occupation/education comments: Unemployed. Gender identity (if verbalized by the patient): Female Spiritual care concerns: No Exam Narrative: APPEARANCE: No acute distress, nontoxic, resting in bed HEENT: Normocephalic, atraumatic, OMM RESPIRATORY: No respiratory distress, clear to auscultation bilaterally with no rhonchi wheezing or rales CARDIOVASCULAR: RRR s murmur ABDOMINAL: Soft nondistended diffusely tender to palpatio
[2022-08-13 11:15] LABS: Appearance Urine Slightly Cloudy (Clear); Bilirubin Urine 3+ (Negative); Blood Urine Negative (Negative); Color Urine Dark Yellow (Yellow); Glucose Urine UA Negative (Negative); Ketones Urine 4+ mg/dL (Negative); Leukocyte Esterase Ur Negative LEU/UL (Negative); Nitrate Urine Negative (Negative); Protein Urine 2+ mg/dL (Negative); Specific Grav Ur >= 1.030 (1.001-1.035); Urobilinogen Urine 0.2 mg/dL (<2.0); pH Urine 5.5 (5.0-9.0)
[2022-08-13 11:22] LABS: Hyaline Casts Urine 15-19 /lpf; Mucus Urine Heavy /lpf; RBC Urine 0-2 /hpf (0-2); Squamous Epithelial Cell Urine Many /hpf (Few)
[2022-08-13 11:23] LABS: Add Urine Microscopic? YES
[2022-08-13 11:27] LABS: Basophils Percent Auto 0.2 % (0.2-1.2); Eosinophils Percent Auto 0.1 % (0-4.4); Hematocrit 39.6 % (37.0-47.0); Hemoglobin 12.2 g/dL (12.0-15.0); Immature Granulocyte Absolute 0.02 K/mm3 (0.00-0.031); Immature Granulocyte Percent A 0.2 % (0-0.5); Lymphocytes Absolute Auto 1.22 K/mm3 (0.9-3.2); Lymphocytes Percent Auto 12.2 % (18.3-44.2); Mean Corpuscular HGB Conc 30.8 g/dl (32-36); Mean Corpuscular Hemoglobin 25.7 pg (26-34); Mean Corpuscular Volume 83.5 fl (80-100); Mean Platelet Volume 9.5 fl (7.4-10.4); Monocytes Absolute Auto 0.7 K/mm3 (0.1-0.6); Monocytes Percent Auto 6.8 % (2.6-8.5); Neutrophils Absolute Auto 8.1 K/mm3 (1.3-6.7); Neutrophils Percent Auto 80.5 % (45.5-73.1); Platelet Count Result 339 k/mm3 (150-375); Red Blood Count 4.74 M/mm3 (4.2-5.4); Red Cell Distribution Width 15.3 % (11.5-14.5)
[2022-08-13] MEDS: SODIUM CHLORIDE 0.9% IV 1,000 ML 999 ML IV CONT ×2 (11:33→13:11)
[2022-08-13] MEDS: FAMOTIDINE 20 MG/2 ML VIAL IV PUSH (11:33)
[2022-08-13] MEDS: ONDANSETRON INJ 4 MG/2 ML VIAL IV PUSH ×3 (11:33→20:59)
[2022-08-13 11:43] LABS: Alanine Aminotransferase 23 U/L (6-35); Alkaline Phosphatase 70 U/L (38-126); Anion Gap 14 mmol/L (8-16); Aspartate Amino Transferase 25 U/L (14-36); Bilirubin,Total 0.8 mg/dL (0.2-1.3); Blood Urea Nitrogen 19 mg/dL (7-17); Calcium 9.5 mg/dL (8.4-10.2); Carbon Dioxide 22 mmol/L (22-30); Chloride 102 mmol/L (98-107); Estimated CRCL calculation 85 ml/min; Estimated Glomerular Filt Rate > 60; Glucose 81 mg/dL (65-110); Lipase 29 U/L (23-300); Sodium 138 mmol/L (137-145)
[2022-08-13 11:44] LABS: Lactic Acid Reflex 1.1 mmol/L (0.7-2.0)
[2022-08-13] MEDS: HYDROmorphone HCL INJ (*CRX) 1 MG/ML SYR 0.5 MG IV PUSH ×3 (12:08→20:55)
[2022-08-13] MEDS: methylPREDNISolone SOD SUCC 125 MG VIAL IV PUSH (13:11)
--- NOTE | 2022-08-13 13:37 | PM.IMHP ---
H&P: HPI History of Present Illness Date/Time: 08/13/22 13:37 Chief Complaint: Abdominal pain Narrative: Patient is a 42 year old female with a past medical history of Crohn's disease, GERD, nephrolithiasis who presented to the ED with complaints of abdominal pain. She stated that it all started about 4 days ago. patient stated that she was getting very nauseous and had been vomiting and was unable to keep anything down. She stated that her stomach got very vague in the last time she had a bowel movement was Monday. She denies any chest pain, shortness a breath, fevers, sweats, chills, lightheadedness, dizziness, weakness or fatigue. Patient did state that she is having some pretty severe pain 8/10 in the middle upper left side of her abdomen. She also stated that she is very anxious this time as well. Patient stated that her last meal was mac and cheese bites from [employer]. patient denies any headaches, bloody stools, syncope or recent falls. Patient is being admitted to the hospitalist service in observation Review of Systems Review of Systems: All systems reviewed & are unremarkable except as noted in HPI and below PMFSH Past Medical History Medical History (Updated 08/13/22 @ 14:58 by ORALIA Kearns) Abdominal wall cellulitis 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 Anemia Crohn's disease GERD with esophagitis Hepatic steatosis History of small bowel obstruction Has been treated conservatively and also required surgical intervention x 2 with adhesiolysis. Hypokalemia Hypomagnesemia Infected prosthetic mesh of abdominal wall Menorrhagia Morbid obesity Nephrolithiasis Partial obstruction of small intestine Partial small bowel obstruction Surgical History Surgical History History of appendectomy Appendix removed during 2nd exploratory laparotomy. History of cholecystectomy History of exploratory laparotomy Has had what sounds like an exploratory laparotomy with adhesiolysis x 2 in [facility]. History of tonsillectomy Status post laparoscopic hernia repair With mesh. Family History Family History Father Diabetes mellitus Mother Hypertension Sibling Crohn's colitis Social History Social History (Reviewed 08/13/22 @ 11:04 by CANDI Araya Social History: Surrogate decision maker: javan Kurtz. Code status: Full code. she works at [employer]. She is a full code . She is single and has no children. Smoking packs per day: 0.2 Smoking cigarettes per day: 4.0 Years smoked: 16 Smoking pack-years: 3.20 Smoking status: Current every day smoker Tobacco type: cigarettes Second hand tobacco smoke exposure: Yes Smoking end date: 11/17/19 Alcohol intake: current Drinks per week: 2 Substance use: current Substance use type: marijuana Other substance usage details: smokes marijauna every day Last use: 12/17/19 Living arrangements: with family Additional living arrangements comments: Lives in [place] with her amanda. Recently moved to the area from [facility]. Occupation/Education: other Additional occupation/education comments: Unemployed. Gender identity (if verbalized by the patient): Female Spiritual care concerns: No Meds Home Medications and Allergies Home Medications Medication Instructions Recorded Confirmed Type pantoprazole 40 mg tablet,delayed 40 mg PO BID 08/16/20 08/16/20 History release (Protonix) cephalexin 500 mg capsule 500 mg PO Q8H 7 days #21 caps 05/10/21 Rx ondansetron 4 mg disintegrating 4 mg PO Q6H PRN nausea and 05/10/21 Rx tablet vomiting #10 tabs Allergies Allergy/AdvReac Type Severity Reaction Status Date / Time Penicillins Allergy Unknown Rash Verified 05/10/21
[2022-08-13 13:56] LABS: Influenza A QL RT-PCR Negative (Negative); Influenza B QL RT-PCR Negative (Negative); RSV RNA, RT-PCR Negative (Negative); SARS-CoV-2 RNA PCR Negative
[2022-08-13 15:20] LABS: CRP 1.2 mg/dL (<1.0)
[2022-08-13 15:28] LABS: Erythrocyte Sedimentation Rate 21 mm/hr (0-20)
--- NOTE | 2022-08-13 16:00 | ADMGEN ---
This patient, Roma Clayton, was admitted to Medical Room 241-01. Patient/family oriented to hospital policies and general routines including ID bracelet, bed and alarms, visiting hours, pain management, procedures, bathroom and other care routines, personal items, smoking policy, room service/diet, and visiting hours. Information on how to activate the Rapid Response Team has been discussed. Patient/Family are encouraged to report perceived risks to care and to ask questions if they do not understand what they are told or what they should do.
[2022-08-13] MEDS: SODIUM CHLORIDE 0.9% IV 1,000 ML 125 ML IV CONT ×2 (16:38→23:53)
[2022-08-13] MEDS: HYDROcodone/acetaminophen (*CRX) 5-325 MG TABLET 1 TAB PO ×2 (20:05→23:55)
[2022-08-13] MEDS: methylPREDNISolone SOD SUCC 40 MG VIAL IV PUSH (21:59)
[2022-08-14] MEDS: HYDROmorphone HCL INJ (*CRX) 1 MG/ML SYR 0.5 MG IV PUSH ×4 (02:46→18:47)
[2022-08-14 04:51] LABS: Hematocrit 32.2 % (37.0-47.0); Immature Granulocyte Absolute 0.03 K/mm3 (0.00-0.031); Immature Granulocyte Percent A 0.4 % (0-0.5); Lymphocytes Absolute Auto 0.46 K/mm3 (0.9-3.2); Lymphocytes Percent Auto 6.9 % (18.3-44.2); Mean Corpuscular HGB Conc 31.1 g/dl (32-36); Mean Corpuscular Hemoglobin 25.6 pg (26-34); Mean Corpuscular Volume 82.6 fl (80-100); Mean Platelet Volume 9.5 fl (7.4-10.4); Monocytes Absolute Auto 0.1 K/mm3 (0.1-0.6); Monocytes Percent Auto 0.7 % (2.6-8.5); Neutrophils Absolute Auto 6.2 K/mm3 (1.3-6.7); Platelet Count Result 282 k/mm3 (150-375); Red Cell Distribution Width 15.2 % (11.5-14.5); White Blood Count 6.7 K/mm3 (4.5-10.0)
[2022-08-14 05:04] LABS: Alanine Aminotransferase 19 U/L (6-35); Alkaline Phosphatase 54 U/L (38-126); Anion Gap 8 mmol/L (8-16); Aspartate Amino Transferase 19 U/L (14-36); Bilirubin,Total 0.4 mg/dL (0.2-1.3); Blood Urea Nitrogen 13 mg/dL (7-17); Calcium 8.3 mg/dL (8.4-10.2); Carbon Dioxide 21 mmol/L (22-30); Chloride 105 mmol/L (98-107); Estimated CRCL calculation 136 ml/min; Estimated Glomerular Filt Rate > 60; Glucose 123 mg/dL (65-110); Potassium 3.6 mmol/L (3.4-5.0); Sodium 134 mmol/L (137-145)
[2022-08-14] MEDS: SODIUM CHLORIDE 0.9% IV 1,000 ML 125 ML IV CONT ×2 (05:43→15:39)
[2022-08-14] MEDS: HYDROcodone/acetaminophen (*CRX) 5-325 MG TABLET 1 TAB PO ×3 (05:43→20:42)
[2022-08-14] MEDS: methylPREDNISolone SOD SUCC 40 MG VIAL IV PUSH ×3 (05:44→20:42)
[2022-08-14 06:00] VITALS: BP 123/72; PULSE 72; RESP 20; TEMP 36.6; O2SAT 97
[2022-08-14] MEDS: ENOXAPARIN 40 MG/0.4 ML SYRINGE SUB-Q (08:40)
[2022-08-14] MEDS: BUDESONIDE 3 MG CAP.SR.24H 9 MG PO (08:41)
[2022-08-14] MEDS: ONDANSETRON INJ 4 MG/2 ML VIAL IV PUSH (08:58)
--- NOTE | 2022-08-14 13:45 | PM.IMPN ---
Progress Note: A&P Assessment and Plan (1) Crohn's disease: Code(s): K50.90 - Crohn's disease, unspecified, without complications Status: Acute Assessment and Plan: Presented with abdominal pain, nausea, vomiting, for the last [address] of the abd/pel showed extensive small bowel wall thickening and enhancement, suspicious for enteritis, no obstruction, free fluid in the abdomen no reactive GI consulted thank you for your help Solumedrol 40mg IV Q8H Does take Humira biweekly and is compliant Continue current therapy Follow with Dr. Marks Pain medications ordered (2) Enteritis: Code(s): K52.9 - Noninfective gastroenteritis and colitis, unspecified Status: Acute Assessment and Plan: See above (3) Morbid obesity with BMI of 45.0-49.9, adult: Code(s): E66.01 - Morbid (severe) obesity due to excess calories; Z68.42 - Body mass index [BMI] 45.0-49.9, adult Status: Acute Assessment and Plan: Life style changes and education (4) Tobacco abuse: Code(s): Z72.0 - Tobacco use Status: Acute Assessment and Plan: Smokes less than 0.5 ppd Patch and gum ordered Smoking cessation >8 mins (5) Hypertension: Code(s): I10 - Essential (primary) hypertension Status: Acute Assessment and Plan: Current BP is 123/72 Probably elevated from the pain of crohns flare up Continue to trend Does appear that she was on medication however, is no longer on any medication. Start PRN hydralazine for now with parameters Plan ? MEDICAL DECISION MAKING NARRATIVE ? History obtained from: Patient ? History from independent sources: spouse ? External chart review: Labs, existing imaging, medications review ? New problems addressed: Crohn's flare up ? Chronic illnesses addressed: Tobacco ? Independent interpretation of studies: CT of the abd/pel ? Comorbidities complicating care: Obesity ? Diagnostic tests considered but not ordered: lipid panel ? Risk of complication: High: obesity ? Time spent on encounter: 48 minutes Time Spent With Patient Time with patient: Greater than 35 minutes Subjective Date/time seen: 08/14/22 1345 Interval history: 08/14/221344 Patient stated that she was doing okay today. She still has pain in the lower abdomen. She denies any chest pain, shortness a breath, nausea, vomiting, weakness or fatigue. Patient did state that she was having a lot of diarrhea but denies any blood in her diarrhea at this time. Currently patient is stable. 08/13/22? 13:37 Patient is a 42 year old female with a past medical history of Crohn's disease, GERD, nephrolithiasis who presented to the ED with complaints of abdominal pain.? She stated that it all started about 4 days ago. patient stated that she was getting very nauseous and had been vomiting and was unable to keep anything down.? She stated that her stomach got very vague in the last time she had a bowel movement was Monday.? She denies any chest pain, shortness a breath, fevers, sweats, chills, lightheadedness, dizziness, weakness or fatigue.? Patient did state that she is having some pretty severe pain 8/10 in the middle upper left side of her abdomen.? She also stated that she is very anxious this time as well.? Patient stated that her last meal was mac and cheese bites from [employer]. patient denies any headaches, bloody stools, syncope or recent falls. Review of Systems Review of Systems: All systems reviewed & are unremarkable except as noted in HPI and below Exam Narrative: General: well-nourished, well-appearing 42-year-old female, sitting up in bed, comfortable, NARD Neuro: awake, alert and oriented x4, speech clear, no focal neuro deficits noted HEENMT: normocephalic, atraumatic, EOMI, sclerae anicteric, moist oral mucosa Respiratory: Clear to auscultation bilaterally withou
[2022-08-14 13:55] VITALS: BP 152/65; PULSE 60; RESP 14; TEMP 36.3; O2SAT 99
--- NOTE | 2022-08-14 19:41 | WPDGICN ---
Assessment and Plan Assessment and plan (1) Crohn's disease of small intestine with complication: Code(s): K50.019 - Crohn's disease of small intestine with unspecified complications Status: Acute Assessment and Plan: probably flare she now is having flatus and had a BM will advance diet as tolerated on iv steroids for now she is on humira at home and already established with GI (2) Enteritis: Code(s): K52.9 - Noninfective gastroenteritis and colitis, unspecified Status: Acute Assessment and Plan: medical management no leukocytosis (3) Abdominal pain: Code(s): R10.9 - Unspecified abdominal pain Status: Inactive (4) Nausea and vomiting in adult: Code(s): R11.2 - Nausea with vomiting, unspecified Status: Acute Assessment and Plan: improved GI Consult Note Consult date/time: 08/14/22 19:41 Reason for consult: abdominal pain, nausea, Crohn's HPI: Roma Clayton is a 42 year old female with past medical history of Crohn's disease diagnosed about 2 years ago on humira for almost a year, her GI is Dr Marks. Also history of GERD, nephrolithiasis who came here with almost 4 days of progressive abdominal pain that got severe along with nausea and vomiting and not able to have a good bowel movement. Denies fever, blood in stools. She says that her Crohn's has been moderately under control, last time used steroids about 6 months ago. Last colonoscopy probably [address] scan reviewed, Extensive small bowel wall thickening and enhancement, suspicious for enteritis. No definite obstruction. 2:? Nonobstructing left nephrolithiasis. Normal wbc, lactic acid and renal function, CRP 1.2. Started on iv steroids, feeling better and had bowel movement, less nauseous now. Review of Systems Review of Systems: Gen.: Denies fevers or chills eyes: no blurry vision ENT: Denies congestion Respiratory: Denies shortness of breath or cough CV: Denies chest pain or palpitations GI: See HPI Musculoskeletal: Denies back pain or muscle pain Neuro: Denies numbness, tingling, weakness or focal weakness Skin: Denies rash Psych: no anxiety Except as documented, all other systems reviewed and negative [facility] Past Medical History Medical History (Updated 08/14/22 @ 19:47 by Car Ruiz MD) Abdominal wall cellulitis 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 Anemia Crohn's disease Crohn's disease of small intestine with complication GERD with esophagitis Hepatic steatosis History of small bowel obstruction Has been treated conservatively and also required surgical intervention x 2 with adhesiolysis. Hypokalemia Hypomagnesemia Infected prosthetic mesh of abdominal wall Menorrhagia Morbid obesity Nausea and vomiting in adult Nephrolithiasis Partial obstruction of small intestine Partial small bowel obstruction Surgical History Surgical History History of appendectomy Appendix removed during 2nd exploratory laparotomy. History of cholecystectomy History of exploratory laparotomy Has had what sounds like an exploratory laparotomy with adhesiolysis x 2 in [facility]. History of tonsillectomy Status post laparoscopic hernia repair With mesh. Family History Family History (Updated 08/13/22 @ 16:23 by Tiffanie Jorge RN) Father Diabetes mellitus Crohn's colitis Mother Hypertension Sibling No problems noted. Social History Social History Social History: Surrogate decision maker: javan Kurtz. Code status: Full code. she works at [employer] She is a full code . She is single and has no children. Smoking packs per day: 0.2 Smoking cigarettes per day: 4.0 Years smoked: 16 Smoking pack-years: 3.20 Smoking status:
[2022-08-14] MEDS: QUEtiapine FUMARATE 12.5 MG TABLET PO (20:41)
[2022-08-14 21:17] VITALS: BP 127/67; PULSE 58; RESP 20; TEMP 36.4; O2SAT 99
[2022-08-15] MEDS: HYDROcodone/acetaminophen (*CRX) 5-325 MG TABLET 1 TAB PO ×2 (01:33→05:31)
[2022-08-15] MEDS: methylPREDNISolone SOD SUCC 40 MG VIAL IV PUSH (05:32)
[2022-08-15 06:00] VITALS: BP 136/77; PULSE 56; RESP 20; TEMP 36.4; O2SAT 100
--- NOTE | 2022-08-15 06:01 | PC.NURSE ---
Called to pt room. Pt pulled shirt up , rubbing abdomen, crying, moaning. Stated she woke up and has extreme abdominal pain. Told pt that she probably going home today and her pain medication not due for another 45 minutes. Pt immediately stopped moaning and crying, voice tone changed. She said ok i can wait and rolled over to rest. Went in 45 minutes later to give medication, solucortef and norco. Pt snoring. Woke pt up P{t mentioned how hungry she is for breakfast.
[2022-08-15 07:34] LABS: Basophils Percent Auto 0.1 % (0.2-1.2); Hematocrit 33.2 % (37.0-47.0); Hemoglobin 10.6 g/dL (12.0-15.0); Immature Granulocyte Absolute 0.07 K/mm3 (0.00-0.031); Immature Granulocyte Percent A 0.6 % (0-0.5); Lymphocytes Absolute Auto 0.74 K/mm3 (0.9-3.2); Lymphocytes Percent Auto 6.7 % (18.3-44.2); Mean Corpuscular HGB Conc 31.9 g/dl (32-36); Mean Corpuscular Hemoglobin 25.9 pg (26-34); Mean Corpuscular Volume 81.2 fl (80-100); Mean Platelet Volume 9.5 fl (7.4-10.4); Monocytes Absolute Auto 0.3 K/mm3 (0.1-0.6); Monocytes Percent Auto 2.5 % (2.6-8.5); Neutrophils Absolute Auto 9.9 K/mm3 (1.3-6.7); Neutrophils Percent Auto 90.1 % (45.5-73.1); Platelet Count Result 322 k/mm3 (150-375); Red Blood Count 4.09 M/mm3 (4.2-5.4); Red Cell Distribution Width 15.9 % (11.5-14.5)
[2022-08-15 07:47] LABS: Alanine Aminotransferase 27 U/L (6-35); Albumin Level 3.8 g/dL (3.5-5.1); Alkaline Phosphatase 59 U/L (38-126); Anion Gap 5 mmol/L (8-16); Aspartate Amino Transferase 28 U/L (14-36); Bilirubin,Total 0.3 mg/dL (0.2-1.3); Blood Urea Nitrogen 11 mg/dL (7-17); Calcium 8.7 mg/dL (8.4-10.2); Carbon Dioxide 24 mmol/L (22-30); Chloride 108 mmol/L (98-107); Estimated CRCL calculation 136 ml/min; Estimated Glomerular Filt Rate > 60; Glucose 132 mg/dL (65-110); Magnesium 1.8 mg/dL (1.6-2.3); Potassium 3.7 mmol/L (3.4-5.0); Sodium 137 mmol/L (137-145)
[2022-08-15 07:59] LABS: Anisocytosis 2+ (NORMAL); Macrocytosis 1+ (NORMAL); Platelet Estimate Adequate (Adequate); Schistocytes None Seen (NORMAL)
[2022-08-15] MEDS: SODIUM CHLORIDE 0.9% IV 1,000 ML 125 ML IV CONT ×2 (08:32)
[2022-08-15] MEDS: BUDESONIDE 3 MG CAP.SR.24H 9 MG PO (08:34)
[2022-08-15] MEDS: ENOXAPARIN 40 MG/0.4 ML SYRINGE SUB-Q (08:34)
--- NOTE | 2022-08-15 09:30 | PM.DS ---
DS: Admitting Diagnosis Discharge Date 08/15/2022 0930 Admitting Diagnosis Crohn's disease flare up DS: Discharge Diagnosis Discharge Diagnosis (1) Crohn's disease: Code(s): K50.90 - Crohn's disease, unspecified, without complications Status: Acute Assessment and Plan: Presented with abdominal pain, nausea, vomiting, for the last [address] of the abd/pel showed extensive small bowel wall thickening and enhancement, suspicious for enteritis, no obstruction, free fluid in the abdomen no reactive GI consulted thank you for your help Solumedrol 40mg IV Q8H Does take Humira biweekly and is compliant Continue current therapy Follow with Dr. Marks Pain medications ordered (2) Enteritis: Code(s): K52.9 - Noninfective gastroenteritis and colitis, unspecified Status: Acute Assessment and Plan: See above (3) Morbid obesity with BMI of 45.0-49.9, adult: Code(s): E66.01 - Morbid (severe) obesity due to excess calories; Z68.42 - Body mass index [BMI] 45.0-49.9, adult Status: Acute Assessment and Plan: Life style changes and education (4) Tobacco abuse: Code(s): Z72.0 - Tobacco use Status: Acute Assessment and Plan: Smokes less than 0.5 ppd Patch and gum ordered Smoking cessation >8 mins (5) Hypertension: Code(s): I10 - Essential (primary) hypertension Status: Acute Assessment and Plan: Current BP is 123/72 Probably elevated from the pain of crohns flare up Continue to trend Does appear that she was on medication however, is no longer on any medication. Start PRN hydralazine for now with parameters DS: Summary Hospital Course Hospital Course: Patient is a 42 year old female with a past medical history of Crohn's disease, GERD, nephrolithiasis who presented to the ED with complaints of abdominal pain.Patient stated that it started about 4 days prior to admission. Patient stated that she was getting very nauseous and having vomiting and unable to keep anything down. She was also having severe abdominal pain which she rated and of 10. CT of the abdomen and pelvis showed small bowel thickening suspicious for enteritis and free fluid in the abdomen most likely reactive. Patient was started on IV Solu-Medrol 40 mg Q 8. GI was consulted. Pain medications were brought on board. Currently patient is tolerating a diet and states that her pain is reasonable at this time. Patient is ready for discharge and is asking to go home. She currently denies any chest pain, shortness a breath, nausea, vomiting, diarrhea or constipation. Patient did state that she would follow-up with her GI physician to ensure that she is on the proper medication. Patient also stated that this normally happens when she comes off of prednisone. Currently patient is stable for discharge per labs and vital signs. Time spent discussing smoking cessation with patient: 3 to 10 minutes Status at Discharge Functional status at discharge: independent ambulation Overall status at discharge: patient is progressing back to baseline Time Spent with Patient Time attestation: Total time spent providing and/or coordinating discharge services: 52 minutes Time spent: Greater than 30 minutes Specific discharge activities: Diagnostic testing, chart review, developing a treatment plan, education, care coordination documentation, physical exam, result review Exam Narrative: General: well-nourished, well-appearing 42-year-old female, sitting up in bed, comfortable, NARD Neuro: awake, alert and oriented x4, speech clear, no focal neuro deficits noted HEENMT: normocephalic, atraumatic, EOMI, sclerae anicteric, moist oral mucosa Respiratory: Clear to auscultation bilaterally without crackles, rhonchi or wheezes, nonlabored breathing Cardio: regular rate, regular rhythm with S1-S2 Abdomen: nondistende
--- NOTE | 2022-08-15 11:00 | WPDGIPROGNO ---
Progress Note: A&P Assessment and Plan (1) Crohn's disease of small intestine with complication: Code(s): K50.019 - Crohn's disease of small intestine with unspecified complications Status: Acute Assessment and Plan: doing much better she is going home with slow prednisone taper on humira and will follow-up with her GI, Dr Marks (2) Nausea and vomiting in adult: Code(s): R11.2 - Nausea with vomiting, unspecified Status: Acute Assessment and Plan: resolved tolerating diet (3) Enteritis: Code(s): K52.9 - Noninfective gastroenteritis and colitis, unspecified Status: Acute Subjective Date/time seen: 08/15/22 11:00 Interval history: doing better, tolerated diet and ready to go home Review of Systems Review of Systems: All systems reviewed & are unremarkable except as noted in HPI and below Exam Const: General: comfortable and no acute distress HENMT: Face/Nose/Sinus: Normal nares present Eyes: General: appearance normal, both eyes and all related structures Neck: Neck: no JVD Resp: Auscultation: clear to auscultation bilaterally Cardio: Rate: regular rate Rhythm: regular rhythm GI: Inspection: non-distended GI Palp: Yes Soft to palpation, No Tenderness to palpation present (GI) and No Guarding due to palpation present (GI) Skin: General skin exam: normal color Neuro: General: gait normal Speech: normal speech Extrem: General: normal to inspection Psych: Mental Status: mental status grossly normal Objective Data Vital Signs Vital Signs: Vital Signs - 24 hr 08/14/22 13:55 08/14/22 21:17 08/15/22 06:00 Temperature 97.3 F L 97.6 F 97.6 F Pulse Rate 60 58 L 56 L Respiratory Rate 14 20 20 Blood Pressure 152/65 H 127/67 136/77 Pulse Oximetry 99 99 100 Intake/Output Intake/Output: Intake & Output 08/12/22 08/13/22 08/14/22 08/15/22 23:59 23:59 23:59 23:59 Intake Total 3518 3880 1890 Output Total 150 Balance 3368 3880 1890 Meds/Results Radiology Results: ITS Impressions Abdomen/Pelvis CT 08/13/22 12:08 IMPRESSION: 1. Extensive small bowel wall thickening and enhancement, suspicious for enteritis. No definite obstruction. 2: Nonobstructing left nephrolithiasis. 3: Free fluid in the abdomen and pelvis, likely reactive. Labs Labs: Laboratory Results - last 24 hr 08/15/22 08/15/22 07:27 07:27 WBC 11.0 H RBC 4.09 L Hgb 10.6 L Hct 33.2 L MCV 81.2 MCH 25.9 L MCHC 31.9 L RDW 15.9 H Plt Count 322 MPV 9.5 Immature Gran % (Auto) 0.6 H Neut % (Auto) 90.1 H Lymph % (Auto) 6.7 L [place] % (Auto) 2.5 L Eos % (Auto) 0.0 Baso % (Auto) 0.1 L Lymph # (Auto) 0.74 L [place] # (Auto) 0.3 Eos # (Auto) 0.0 Baso # (Auto) 0.0 Abs Immat Gran (auto) 0.07 H Absolute Neuts (auto) 9.9 H Absolute Nucleated RBC 0.0 Nucleated RBC % 0.0 Platelet Estimate Adequate Anisocytosis 2+ Macrocytosis 1+ Schistocytes None seen Sodium 137 Potassium 3.7 Chloride 108 H Carbon Dioxide 24 Anion Gap 5 L BUN 11 Creatinine 0.60 L Estim Creat Clear Calc 136 Estimated GFR > 60 Glucose 132 H Calcium 8.7 Magnesium 1.8 Total Bilirubin 0.3 AST 28 ALT 27 Alkaline Phosphatase 59 Total Protein 7.0 Albumin 3.8 Amg Follow-up Billing Hospital Follow-up Hospital Follow-up: [id number] [facility] Mod
== END 2022-08-15 11:50 | disposition home or self-care (01) ==
LOC: ANHED 13:33 → ANH2MED 15:42
PROVIDERS: Nurse Practitioner; Physician Assistant; Admitting Provider Chiropractor; Emergency Provider Emergency Medicine; PCP Family Medicine; Visit Provider Internal Medicine
DX: K50.019 Crohn's disease of small intestine with unspecified complications (principal); R11.2 Nausea with vomiting, unspecified; K52.9 Noninfective gastroenteritis and colitis, unspecified; K21.00 Gastro-esophageal reflux disease with esophagitis, without bleeding; E66.01 Morbid (severe) obesity due to excess calories; Z68.42 Body mass index [BMI] 45.0-49.9, adult; F17.210 Nicotine dependence, cigarettes, uncomplicated; Z20.822 Contact with and (suspected) exposure to COVID-19
CPT/HCPCS: 36415; 74177; 80053; 81001; 81025; 83605; 83690; 83735; 85025; 85652; 86140; 87637; 96361; 96372; 96374; 96375; 96376; 99285; A9270; G0378; J0131; J1170; J1650; J2405; J2920; J2930; J7030; Q9967

== ENCOUNTER 2022-08-20 17:28 | Inpatient (IN) | payer OTHER, SELFPAY ==
--- NOTE | ~2022-08-20 | CT_ITS ---
CT Abdomen and Pelvis with contrast. History: Crohn's disease, abdominal pain. Spiral CT of the abdomen and pelvis was performed after the administration of intravenous contrast. 1 00 cc of Omnipaque 350 was administered intravenously without complication. Dose reduction technique was used on this scan by utilizing automated exposure control and iterative reconstruction technique. The dose-length product (DLP) was 1530.94 mGy-cm. COMPARISON: 08/13/2022 Findings: Scans through the lung bases demonstrate mild atelectatic change. The liver, spleen, pancreas, gallbladder, adrenals and right kidney are within normal limits. Multipl e nonobstructing left renal stones are present. No evidence of aortic aneurysm. No lymphadenopathy i s seen. Multiple mildly distended proximal small bowel loops are present. Distal small bowel loops are relati vely decompressed. There is probable mild wall thickening of several small bowel loops. No well delin eated transition point clearly identified. No abscess or free air. Images through the pelvis were performed. Urinary bladder unremarkable. Uterine fibroid present. Smal l amount of pelvic ascites is seen. Impression: Multiple mildly dilated proximal small bowel loops. Findings could reflect partial small bowel obstru ction, possibly related to reported underlying Crohn's disease. Probable mild wall thickening of several small bowel loops, which again could be related to Crohn's d isease. Small amount of pelvic ascites. Left nephrolithiasis. Uterine fibroid. Reviewed, dictated and finalized at [facility]. 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 Findings could reflect part ial small bowel obstruction, possibly related to reported underlying Crohn's di sease. Probable mild wall thickening of several small bowel loops, which again could b e related to Crohn's disease. Small amount of pelvic ascites. Left nephrolithiasis. Uterine fibroid.
--- NOTE | ~2022-08-20 | XR_ITS ---
Supine and upright views of the abdomen Clinical history: Small bowel obstruction Findings: Several mildly distended small bowel loops are present, which could reflect partial small b owel obstruction. Left renal stones are present. Cholecystectomy clips present. Osseous structures ar e intact. Impression: Possible partial small bowel obstruction. Left nephrolithiasis. Reviewed, dictated and finalized at [facility] [employer]NAG[employer] Impression: Possible partial small bowel obstruction. Left nephrolithiasis.
[2022-08-20 17:31] VITALS: BP 151/85; PULSE 56; RESP 20; TEMP 36.7; O2SAT 98
--- NOTE | 2022-08-20 17:41 | ED.ABDPAIN ---
HPI - Abdominal Pain General Chief Complaint: Abdominal Pain <IRMA Adams Last Filed: 08/20/22 20:38> Stated Complaint: crohns flare up <IRMA Adams Last Filed: 08/20/22 20:38> Time Seen by Provider: 08/20/22 17:40 <IRMA Adams Last Filed: 08/20/22 20:38> Source: patient and old records reviewed <IRMA Adams Last Filed: 08/20/22 20:38> Mode of arrival: ambulatory <IRMA Adams Last Filed: 08/20/22 20:38> Limitations: no limitations <IRMA Adams Last Filed: 08/20/22 20:38> History of Present Illness HPI narrative: Patient is a 42-year-old female, with a past medical history of Crohn's disease, who presents to the ED with report of abdominal pain. Per patient's records, she was recently admitted to the hospital on 08/13 through 08/15 for Crohn's flare, abdominal pain, dehydration. She was started on IV steroids at that time and discharged on steroid taper. Patient is also on Humira for her Crohn's disease and follows with Dr. Marks with GI. She is unable to be seen by GI until December. She states she still feels terrible since her admission. She complains of decreased appetite, nausea and vomiting with any attempt to eat or drink, abdominal pain, mostly left-sided, and abdominal distention. Patient took [id number] Tylenol this morning without relief. She was able to eat a small amount of milk and cereal this morning and drinking water today. She had a small BM yesterday and passed flatus today. Denies fevers, cough, cold sx's, urinary sx's. <IRMA Adams Last Filed: 08/20/22 20:38> Related Data Home Medications: Home Medications Medication Instructions Recorded Confirmed budesonide 9 mg capsule,extended 9 mg PO DAILY 08/13/22 08/20/22 release omeprazole 20 mg capsule,delayed 20 mg PO BID 08/13/22 08/20/22 release prochlorperazine maleate 5 mg 5 mg PO Q8H PRN Nausea And Vomiting 08/13/22 08/20/22 tablet (Compazine) adalimumab 20 mg/0.4 mL 20 mg subcut [id number] 08/20/22 08/20/22 subcutaneous syringe kit prednisone 10 mg tablet 35 mg PO DAILY 08/20/22 08/20/22 <Kym Jones PA-C - Last Filed: 08/20/22 20:38> Allergies/Adverse Reactions: Allergies Allergy/AdvReac Type Severity Reaction Status Date / Time Penicillins Allergy Unknown Rash Verified 08/20/22 18:08 morphine AdvReac Nausea and Verified 08/20/22 18:08 Vomiting <IRMA Adams Last Filed: 08/20/22 20:38> Review of Systems Review of Systems: CONSTITUTIONAL: Denies fever, chills, or sweats. CARDIOVASCULAR: Denies chest pain, palpitations, or edema. RESPIRATORY: Denies cough or dyspnea. GASTROINTESTINAL: See HPI. GENITOURINARY: Denies dysuria or hematuria. SKIN: Denies rash or itching. MUSCULOSKELETAL: Denies back pain, joint pain, or myalgia. NEUROLOGIC: Denies headache, numbness, or weakness. <Kym Jones PA-C - Last Filed: 08/20/22 20:38> All systems reviewed & are unremarkable except as noted in HPI and below <Kym Jones PA-C - Last Filed: 08/20/22 20:38> [facility] Past Medical History Medical History: Medical History (Updated 08/20/22 @ 20:46 by Tiffanie Jon DO) Abdominal wall cellulitis 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 Anemia Crohn's disease of small intestine with complication GERD with esophagitis Hepatic steatosis History of small bowel obstruction Has been treated conservatively and also required surgical intervention x 2 with adhesiolysis. Infected prosthetic mesh of abdominal wall Menorrhagia Morbid obesity Morbid obesity with BMI of 45.0-49.9, adult Nausea and vomiting in adult Nephrolithiasis Partial obstruction of small intestine Partial small bowel obstruction <Kym Jones PA-C - Last Filed: 08/20/22 20:38>
[2022-08-20 18:29] LABS: Basophils Percent Auto 0.1 % (0.2-1.2); Hematocrit 36.2 % (37.0-47.0); Hemoglobin 11.2 g/dL (12.0-15.0); Immature Granulocyte Absolute 0.06 K/mm3 (0.00-0.031); Immature Granulocyte Percent A 0.5 % (0-0.5); Lymphocytes Absolute Auto 1.08 K/mm3 (0.9-3.2); Lymphocytes Percent Auto 8.2 % (18.3-44.2); Mean Corpuscular HGB Conc 30.9 g/dl (32-36); Mean Corpuscular Hemoglobin 25.6 pg (26-34); Mean Corpuscular Volume 82.8 fl (80-100); Monocytes Absolute Auto 0.4 K/mm3 (0.1-0.6); Monocytes Percent Auto 2.9 % (2.6-8.5); Neutrophils Absolute Auto 11.7 K/mm3 (1.3-6.7); Neutrophils Percent Auto 88.3 % (45.5-73.1); Platelet Count Result 359 k/mm3 (150-375); Red Blood Count 4.37 M/mm3 (4.2-5.4); Red Cell Distribution Width 16.5 % (11.5-14.5); White Blood Count 13.2 K/mm3 (4.5-10.0)
[2022-08-20 18:34] LABS: Appearance Urine Clear (Clear); Bilirubin Urine Negative (Negative); Blood Urine Negative (Negative); Color Urine Yellow (Yellow); Glucose Urine UA Negative (Negative); Ketones Urine Negative (Negative); Leukocyte Esterase Ur Negative LEU/UL (Negative); Nitrate Urine Negative (Negative); Protein Urine Negative (Negative); Specific Grav Ur 1.015 (1.001-1.035); Urobilinogen Urine 0.2 mg/dL (<2.0)
[2022-08-20 18:36] LABS: Potassium 4.4 mmol/L (3.4-5.0)
[2022-08-20 18:38] LABS: CRP < 0.5 mg/dL (<1.0); Magnesium 2.2 mg/dL (1.6-2.3)
[2022-08-20 18:40] LABS: Mucus Urine Rare /lpf; Squamous Epithelial Cell Urine Moderate /hpf (Few); WBC Urine 0-3 /hpf
[2022-08-20 18:41] LABS: Alanine Aminotransferase 31 U/L (6-35); Albumin Level 4.1 g/dL (3.5-5.1); Alkaline Phosphatase 60 U/L (38-126); Anion Gap 5 mmol/L (8-16); Aspartate Amino Transferase 20 U/L (14-36); Bilirubin,Total 0.5 mg/dL (0.2-1.3); Blood Urea Nitrogen 13 mg/dL (7-17); Carbon Dioxide 29 mmol/L (22-30); Chloride 106 mmol/L (98-107); Estimated Glomerular Filt Rate > 60; Glucose 114 mg/dL (65-110); Lipase 53 U/L (23-300); Sodium 140 mmol/L (137-145)
[2022-08-20 18:42] LABS: Add Urine Microscopic? NO
[2022-08-20 18:46] LABS: Estimated Glomerular Filt Rate > 60
[2022-08-20 18:49] LABS: Lactic Acid Reflex 0.7 mmol/L (0.7-2.0)
[2022-08-20] MEDS: SODIUM CHLORIDE 0.9% IV 1,000 ML 999 ML IV CONT ×2 (18:51→20:14)
[2022-08-20] MEDS: ONDANSETRON INJ 4 MG/2 ML VIAL IV PUSH (18:51)
[2022-08-20] MEDS: HYDROmorphone HCL INJ (*CRX) 1 MG/ML SYR 0.5 MG IV PUSH ×2 (18:51→21:00)
[2022-08-20 19:46] VITALS: BP 149/86; PULSE 64; RESP 15; O2SAT 98
[2022-08-20] MEDS: methylPREDNISolone SOD SUCC 125 MG VIAL 60 MG IV PUSH (20:11)
[2022-08-20] MEDS: metroNIDAZOLE 500 MG/ISO 100ML 500 MG/100 ML BAG 100 MG IVPB (20:14)
[2022-08-20 20:35] LABS: Influenza A QL RT-PCR Negative (Negative); Influenza B QL RT-PCR Negative (Negative); SARS-CoV-2 RNA PCR Negative
--- NOTE | 2022-08-20 20:35 | PM.IMHP ---
H&P: HPI History of Present Illness Date/Time: 08/20/22 20:35 Chief Complaint: Abdominal pain Narrative: 42-year-old female with past medical history morbid obesity, tobacco abuse, Crohn's disease, GERD and prior bowel obstructions who presented to the ER with abdominal pain. The patient had recently been hospitalized -08/15/2022 a 2 to Crohn's flare was treated with IV steroids and was sent home with a prednisone taper. She just stepped down to 35 mg of prednisone daily today. The patient follows with Dr. Marks Gastroenter[facility] as outpatient. She is on Humira for immunomodulation with her last dose being on the 1st. She reports that her acutely worsened 2 days ago. It starts in the periumbilical region and radiates to the left abdomen. She has been having small amounts of stool that is mucousy. Her stooled does have a small amount of blood in it but no more than what she would expect for her acute Crohn's flare. Stool is brown in color. The pain worsened after eating. It was a 10/10 in intensity and was squeezing, cramping and colicky in nature. It was made worse with movement. She had no relieving factors at home but did have improvement her pain down to 5/10 intensity after IV Dilaudid half a mg in the ER. She denies any fevers or chills. The patient states that she does snore. She has had partial polysomnogram but has never been able to tolerate the CPAP mask in order to complete the sleep study. Source of information is patient and her who is at bedside. Patient gave permission to share information with her . Review of Systems Review of Systems: 12 systems were reviewed with pertinent positives and negatives per HPI. Except as documented in the HPI, all other systems were reviewed and are negative. [facility] Past Medical History Medical History (Updated 08/21/22 @ 05:42 by Tiffanie Jon DO) Abdominal wall cellulitis 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 Anemia Crohn's disease of small intestine with complication GERD with esophagitis Hepatic steatosis History of small bowel obstruction Has been treated conservatively and also required surgical intervention x 2 with adhesiolysis. Menorrhagia Morbid obesity Nephrolithiasis Partial obstruction of small intestine Partial small bowel obstruction Port-A-Cath in place History of right sided Port-A-Cath with subsequent removal placed 2011 removed proximally 2017. Placed due to poor vascular access. Tobacco abuse Surgical History Surgical History (Updated 08/21/22 @ 05:41 by Tiffanie Jon DO) History of appendectomy Appendix removed during 2nd exploratory laparotomy. History of cholecystectomy History of exploratory laparotomy Has had what sounds like an exploratory laparotomy with adhesiolysis x 2 in [facility]. History of tonsillectomy Status post laparoscopic hernia repair With mesh. Family History Family History (Updated 08/21/22 @ 05:34 by Tiffanie Jon DO) Father Diabetes mellitus Mother Hypertension Sibling No problems noted. Other Crohn's colitis Social History Social History (Updated 08/21/22 @ 05:36 by Tiffanie Jon DO) Social History: Her in her have been together for many years but they got in 2020. They have 1 cat. They have no children. 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 She had drinks alcohol infrequently and only in moderation. She uses marijuana daily. Surrogate decision maker: Dorota Clayton () Code status: Full code. Smoking packs per day: 0.2 Smoking cigarettes per day: 4.0 Years smoked: 16 Smoking pack-years: 3.20 Smoking status: Current every day smoker Tobacco type: cigarettes Second hand tobacco smoke exposure: Yes Smoking end date: 11/17/19 Alcohol intake: c
--- NOTE | 2022-08-20 20:44 | PC.NURSE ---
pt refusing NG tube placement at this time provider aware at this time
[2022-08-20 22:21] VITALS: BMI 34.4
[2022-08-20 22:24] VITALS: BP 154/86; PULSE 52; RESP 18; TEMP 36.2; O2SAT 97
--- NOTE | 2022-08-20 22:24 | ADMGEN ---
This patient, Roma Clayton, was admitted to [facility] Surg Room 301-01. Patient/family oriented to hospital policies and general routines including ID bracelet, bed and alarms, visiting hours, pain management, procedures, bathroom and other care routines, personal items, smoking policy, room service/diet, and visiting hours. Information on how to activate the Rapid Response Team has been discussed. Patient/Family are encouraged to report perceived risks to care and to ask questions if they do not understand what they are told or what they should do.
[2022-08-20] MEDS: SODIUM CHLORIDE 0.9% IV 1,000 ML 125 ML IV CONT (22:38)
[2022-08-21] MEDS: HYDROmorphone HCL INJ (*CRX) 1 MG/ML SYR 0.5 MG IV PUSH ×7 (00:06→19:12)
[2022-08-21] MEDS: ONDANSETRON INJ 4 MG/2 ML VIAL IV PUSH ×2 (03:22→09:00)
[2022-08-21] MEDS: methylPREDNISolone SOD SUCC 125 MG VIAL 60 MG IV PUSH ×3 (05:55→20:45)
[2022-08-21] MEDS: metroNIDAZOLE 500 MG/ISO 100ML 500 MG/100 ML BAG 100 MG IVPB ×3 (05:55→20:46)
[2022-08-21] MEDS: ENOXAPARIN 40 MG/0.4 ML SYRINGE SUB-Q (09:01)
[2022-08-21] MEDS: PANTOPRAZOLE SODIUM IV 40 MG VIAL IV PUSH (09:01)
[2022-08-21] MEDS: SODIUM CHLORIDE 0.9% IV 1,000 ML 125 ML IV CONT (11:53)
[2022-08-21 14:00] VITALS: BP 153/101; PULSE 66; RESP 18; TEMP 35.8; O2SAT 100
--- NOTE | 2022-08-21 14:02 | PM.IMPN ---
Progress Note: A&P Assessment and Plan (1) Partial small bowel obstruction: Code(s): K56.600 - Partial intestinal obstruction, unspecified as to cause Status: Acute (2) Acute Crohn's disease with intestinal obstruction: Code(s): K50.912 - Crohn's disease, unspecified, with intestinal obstruction Status: Acute (3) GERD (gastroesophageal reflux disease): Code(s): K21.9 - Gastro-esophageal reflux disease without esophagitis Status: Acute (4) Morbid obesity with BMI of 45.0-49.9, adult: Code(s): E66.01 - Morbid (severe) obesity due to excess calories; Z68.42 - Body mass index [BMI] 45.0-49.9, adult Status: Acute (5) Tobacco abuse: Code(s): Z72.0 - Tobacco use Status: Acute Plan The patient has partial small-bowel obstruction due to acute flare of Crohn's disease. Patient has been placed on antibiotic therapy with Levaquin and Flagyl. The patient is not currently having a vomiting so NG tube has been deferred. Continue NPO diet with IV fluid hydration. Continue analgesics and antiemetics as needed. Solu-Medrol has been initiated 60 mg q.8 hours per Gastroenterology recommendations. GI consult on available over the weekend, will be consulted on Monday to assess the patient. Case was discussed with patient's established GI group by prior provider. General surgery has been consulted. Hopefully patient's bowel obstruction will improve with treatment of acute inflammatory process and Conservative measures. Repeat KUB completed today, awaiting read. Patient has chronic GERD. Continue IV Protonix while hospitalized. Patient is acutely anxious regarding hospitalization. Will begin BuSpar 5 mg b.i.d.. Low-dose Ativan q8h as needed for acute anxiety episodes Patient has been educated on smoking cessation. She declines need for nicotine patch. She does not feel that her anxiety is exacerbated by nicotine cravings or desire to smoke. Subjective Date/time seen: 08/21/22 14:02 Interval history: date of service: 08/21/2022 Roma Clayton is a 42-year-old female with a history of Crohn's disease, small-bowel obstruction, tobacco abuse, nephrolithiasis, hepatic steatosis, anemia, and anxiety who is seen in follow-up for partial small-bowel obstruction and acute Crohn's disease. she states that she is feeling somewhat better today. Her pain has improved but is still persistent. She currently describes 5/10 lower abdominal pain that she describes as a squeezing sensation. She endorses abdominal cramping and bloating. She denies nausea or vomiting. Admits to passing flatus today but no bowel movement. Last bowel movement was 2 days ago. She denies any fevers or chills. She has been NPO today. She feels very anxious which she attributes to being hospitalized and states that during her prior hospitalizations she has had significant issues with anxiety. She felt short of breath earlier but this seems to have resolved. She thought that she might of had some wheezing. She denies any urinary symptoms. Denies chest pain or palpitations. Review of Systems Review of Systems: All systems reviewed & are unremarkable except as noted in HPI and below Exam Narrative: General: Obese, well-appearing 42-year-old female, sitting up in bed , comfortable, NARD Neuro: awake, alert and oriented x4, speech clear, no focal neuro deficits noted HEENMT: normocephalic, atraumatic, EOMI, sclerae anicteric, moist oral mucosa Respiratory: clear to auscultation bilaterally, nonlabored breathing Cardio: regular rate, regular rhythm with S1-S2 Abdomen: obese abdomen, hypoactive bowel sounds, soft, diffusely tender to palpation Extremities: no edema, erythema, or tenderness to palpation, DP pulses 2+ bilaterally Skin: no rashes or lesions, warm and dry Psych: acutely anxious and slightly tremulous, judgment and insight intact Objective Data Vital Signs Vital Signs: Vital Signs
[2022-08-21 15:54] LABS: Basophils Percent Auto 0.1 % (0.2-1.2); Hematocrit 39.2 % (37.0-47.0); Hemoglobin 11.9 g/dL (12.0-15.0); Immature Granulocyte Percent A 1.2 % (0-0.5); Lymphocytes Absolute Auto 0.88 K/mm3 (0.9-3.2); Lymphocytes Percent Auto 10.4 % (18.3-44.2); Mean Corpuscular HGB Conc 30.4 g/dl (32-36); Mean Corpuscular Hemoglobin 25.6 pg (26-34); Mean Corpuscular Volume 84.5 fl (80-100); Mean Platelet Volume 10.1 fl (7.4-10.4); Monocytes Absolute Auto 0.2 K/mm3 (0.1-0.6); Monocytes Percent Auto 2.1 % (2.6-8.5); Neutrophils Absolute Auto 7.3 K/mm3 (1.3-6.7); Neutrophils Percent Auto 86.2 % (45.5-73.1); Platelet Count Result 345 k/mm3 (150-375); Red Blood Count 4.64 M/mm3 (4.2-5.4); Red Cell Distribution Width 16.4 % (11.5-14.5); White Blood Count 8.4 K/mm3 (4.5-10.0)
[2022-08-21] MEDS: LORazepam (*CRX) 0.5 MG TABLET PO (16:01)
[2022-08-21 16:05] LABS: Anion Gap 9 mmol/L (8-16); Blood Urea Nitrogen 13 mg/dL (7-17); Calcium 9.1 mg/dL (8.4-10.2); Carbon Dioxide 25 mmol/L (22-30); Chloride 101 mmol/L (98-107); Estimated CRCL calculation 120 ml/min; Estimated Glomerular Filt Rate > 60; Glucose 108 mg/dL (65-110); Sodium 135 mmol/L (137-145)
--- NOTE | 2022-08-21 17:38 | WPDCN ---
Assessment and Plan Assessment and plan (1) Acute Crohn's disease with intestinal obstruction: Code(s): K50.912 - Crohn's disease, unspecified, with intestinal obstruction Status: Acute Assessment and Plan: It appears the patient has presented again with a recurrent partial small-bowel obstruction due to inflammation from her Crohn's disease. She has been restarted on higher doses of IV steroids. She is also been started on some IV antibiotics. She refused nasogastric tube decompression the presently is not having nausea or vomiting since. Her abdominal exam is as expected for having a Crohn's exacerbation but she has no peritoneal signs or signs of an acute surgical abdomen. CT scan results as noted above showed no perforation, abscess, or fistula. I explained to the patient that the mainstay treatment for her Crohn's exacerbation will be medical management. She may need to be treated with a different biologic medication for Crohn's. If she starts to have emesis and have highly recommended she have a nasogastric tube placed. For now, I recommend follow up again with GI consultation during this admission. Will follow. HPI Data of Consult Date/Time: 08/21/22 17:38 Requesting Physician: Dominga Ortiz PA-C Primary Care Provider: Keith Silva MD Consult Narrative Reason for consult: Abdominal pain and partial small bowel obstruction Narrative: Roma Clayton is a 42 year old female who presented with abdominal pain, abdominal distention, and complaints of recent nausea and vomiting. She has a history Crohn's disease and was admitted here to [facility] recently due to Crohn's exacerbation. She has been on Humira for approximately 1 year which had controlled her Crohn's until about 2 weeks ago. She was discharged on a steroid taper schedule and most recently has been on 35 mg of prednisone daily. Would establish GI doctor is Dr Marks and she has contacted his office for an appointment but can't get in to see him for about 4 months. On workup in the emergency room her white blood cell count was [address]16 and electrolytes were normal. CT scan abdomen pelvis showed multiple loops of dilated small bowel with thickening and inflammatory changes of some loops of small bowel without fistula, abscess, or perforation. Findings are consistent with her known Crohn's disease. Today her pain is better but she still is receiving some pain medication. He is no longer nauseated and has not had any emesis since her admission. She refused an NG tube as she was not have any nausea. She states she is passing some flatus but no bowel movements. Her white blood cell count this morning had normalized to 8400 and she has been afebrile. She has been started on Levaquin and Flagyl for IV antibiotic therapy. She has had a previous open ventral hernia repair with mesh about 8 years ago. She has also had 2 prior laparoscopic adhesiolysis procedures. She has never had a bowel resection for her Crohn's disease. Review of Systems Review of Systems: The remainder of the review of systems to include constitutional, HEENT, cardiovascular, respiratory, GI, , integumentary, musculoskeletal, endocrine, immunologic, hematologic, psychiatric, and neurologic are all negative except for which is mentioned above in the HPI. [facility] Past Medical History Medical History (Updated 08/21/22 @ 05:42 by Tiffanie Jon, ) Abdominal wall cellulitis 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 Anemia Crohn's disease of small intestine with complication GERD with esophagitis Hepatic steatosis History of small bowel obstruction Has been treated conservatively and also required surgical intervention x 2 with adhesiolysis. Menorrhagia Morbid obesity Nephrolithiasis Partial obstruction of small intestine Partial small bowel obstruction Port-A-Cath in place
[2022-08-21] MEDS: busPIRone HCL 5 MG TABLET PO (20:46)
[2022-08-21 20:53] VITALS: BP 168/82; PULSE 51; RESP 20; TEMP 36.3; O2SAT 100
[2022-08-22] MEDS: HYDROmorphone HCL INJ (*CRX) 1 MG/ML SYR 0.5 MG IV PUSH ×8 (00:22→23:55)
[2022-08-22] MEDS: LORazepam (*CRX) 0.5 MG TABLET PO (00:23)
[2022-08-22] MEDS: SODIUM CHLORIDE 0.9% IV 1,000 ML 125 ML IV CONT ×3 (00:23→20:30)
[2022-08-22] MEDS: diphenhydrAMINE HCl INJ 50 MG/ML VIAL 25 MG IV PUSH ×3 (04:17→20:30)
[2022-08-22] MEDS: methylPREDNISolone SOD SUCC 125 MG VIAL 60 MG IV PUSH ×3 (05:08→21:41)
[2022-08-22] MEDS: metroNIDAZOLE 500 MG/ISO 100ML 500 MG/100 ML BAG 100 MG IVPB ×3 (05:08→21:41)
[2022-08-22 05:52] VITALS: BP 160/84; PULSE 60; RESP 14; TEMP 36.3; O2SAT 100
[2022-08-22] MEDS: PANTOPRAZOLE SODIUM IV 40 MG VIAL IV PUSH (08:36)
[2022-08-22] MEDS: ENOXAPARIN 40 MG/0.4 ML SYRINGE SUB-Q (08:41)
[2022-08-22] MEDS: busPIRone HCL 5 MG TABLET PO ×2 (08:41→20:29)
[2022-08-22 11:03] VITALS: BMI 34.4
--- NOTE | 2022-08-22 12:08 | PM.PNGS ---
Progress Note: A&P Assessment and Plan (1) Acute Crohn's disease with intestinal obstruction: Code(s): K50.912 - Crohn's disease, unspecified, with intestinal obstruction Status: Acute Assessment and Plan: Still having some abdominal pain, although improved. She is passing flatus but no BM yet. We will keep her NPO today. Nausea has improved and she has not had any vomiting. Continue medical management of her Crohn's exacerbation and GI has been consulted. Plan I have discussed the patient's case and plan of care with Dr. Le. Subjective Subjective Date/Time Seen: 08/22/22 12:08 Patient reports: no new complaints, feels better, pain is less, flatus and no bowel movement Interval history: Chart reviewed. Patient feeling better this morning. She reports still having some LUQ abdominal pain, but this has improved since yesterday. She also reports her nausea subsided yesterday and she is not having any nausea today. No vomiting since admission. She is passing flatus but no BM. Reportedly her last good BM was last Monday. Review of Systems Review of Systems: All systems reviewed & are unremarkable except as noted in HPI and below Exam Const: General: no acute distress and awake Orientation/consciousness: patient oriented x3 GI: Inspection: non-distended and obesity GI Palp: Yes Soft to palpation, Yes Tenderness to palpation present (GI) (mild diffuse tenderness, worse in the LUQ), No Guarding due to palpation present (GI), No Hernia present, No Palpable mass present and No Rebound tenderness present Auscultation: Hypoactive bowel sounds present Psych: Mental Status: mental status grossly normal Affect: normal affect Objective Data Vital Signs Vital Signs: Vital Signs - 24 hr 08/21/22 14:00 08/21/22 20:53 08/21/22 20:45 Temperature 96.5 F L 97.4 F L Pulse Rate 66 51 L Respiratory Rate 18 20 Blood Pressure 153/101 H 168/82 H Pulse Oximetry 100 100 Oxygen Delivery Room Air 08/22/22 05:52 Temperature 97.4 F L Pulse Rate 60 Respiratory Rate 14 Blood Pressure 160/84 H Pulse Oximetry 100 Oxygen Delivery Intake/Output Intake/Output: Intake & Output 08/19/22 08/20/22 08/21/22 08/22/22 23:59 23:59 23:59 23:59 Intake Total 2100 2300 1250 Output Total 600 900 Balance 2100 1700 350 Meds/Results Medications: Active Medications Generic Name Dose Route Start Last Admin Trade Name Freq PRN Reason Stop Dose Admin Buspirone HCl 5 mg 08/21/22 21:00 08/22/22 08:41 Buspirone Hcl 5 Mg Tablet PO 5 mg Q12HR PAULA Administration Diphenhydramine HCl 25 mg 08/21/22 23:01 08/22/22 11:30 Diphenhydramine Hcl Inj 50 Mg/Ml Vial IV PUSH 25 mg Q6H PRN Administration anxiety not controlled with ativan Enoxaparin Sodium 40 mg 08/21/22 09:00 08/22/22 08:41 Enoxaparin 40 Mg/0.4 Ml Syringe SUB-Q 40 mg DAILY PAULA Administration Hydralazine HCl 10 mg 08/22/22 05:48 Hydralazine Hcl 20 Mg/Ml Vial IV PUSH Q4H PRN SBP greater than 160 Hydromorphone HCl 0.5 mg 08/20/22 20:15 08/22/22 11:31 Hydromorphone Hcl Inj (*Crx) 1 Mg/Ml Syr IV PUSH 0.5 mg Q3H PRN Administration Pain Rated 7-10 Metronidazole 500 mg in 100 mls @ 100 mls/hr 08/21/22 06:00 08/22/22 06:12 Flagyl 500 Mg/Iso Soln 100 Ml IVPB Infused Q8H PAULA Infusion Levofloxacin/Dextrose 750 mg in 150 mls @ 100 mls/hr 08/22/22 00:00 08/22/22 01:53 Levaquin 750 Mg/D5w 150 Ml IVPB Infused Q24H PAULA Infusion Sodium Chloride 1,000 mls @ 125 mls/hr 08/20/22 20:15 08/22/22 11:34 Normal Saline Iv IV CONT 125 mls/hr .Q8H PAULA Administration Lorazepam 0.5 mg 08/21/22 13:59 08/22/22 00:23 Lorazepam (*Crx) 0.5 Mg Tablet PO 0.5 mg Q8H PRN Administration Anxiety Methylprednisolone Sodium Succinate 60 mg 08/21/22 06:00 08/22/22 05:08 Methylprednisolone Sod Succ 125 Mg Vial IV PUSH 60 mg Q8HR PAULA Administration Ondansetron
[2022-08-22 14:04] VITALS: BP 178/80; PULSE 60; RESP 18; TEMP 36.9; O2SAT 100
[2022-08-22] MEDS: hydrALAZINE HCL 20 MG/ML VIAL 10 MG IV PUSH (14:06)
--- NOTE | 2022-08-22 14:55 | WPDGICN ---
Assessment and Plan Assessment and plan (1) Crohn's disease: Code(s): K50.90 - Crohn's disease, unspecified, without complications Status: Acute Assessment and Plan: Patient's with Crohn's disease. Appears to be relatively active at present. Patient has a partial small-bowel obstruction on this basis. Recently hospitalized improved and discharged on IV steroids. Currently maintained on Humira. Plan is for conservative management at present. Will continue NPO status. Continue broad-spectrum antibiotics. IV steroids will continue as her symptoms improve will initially allow liquid and advance to a regular diet. She may need to consider an alternate biologic agent but this would best be made in conjunction with a poor established skin diver to recommend continuing antibiotics as Levaquin and Flagyl been known to have anti-inflammatory effects for Crohn's disease. IV steroids will continue in decrease as her obstruction improves. Will follow with you. (2) Partial small bowel obstruction: Code(s): K56.600 - Partial intestinal obstruction, unspecified as to cause Status: Acute (3) Morbid obesity with BMI of 45.0-49.9, adult: Code(s): E66.01 - Morbid (severe) obesity due to excess calories; Z68.42 - Body mass index [BMI] 45.0-49.9, adult Status: Acute GI Consult Note Consult date/time: 08/22/22 14:55 Reason for consult: Crohn's disease and partial small bowel obstruction HPI: Roma Clayton is a 42 year old female I am asked to see for partial small-bowel obstruction in a patient with Crohn's disease. Patient had Crohn's disease diagnosed approximately 2 years ago. For the last 1 year she has been maintained on Humira. Patient apparently did well until 2 weeks ago when she was hospitalized at [facility] with small-bowel obstruction. It was felt secondary to inflammation of her Crohn's disease. Patient did well with steroids. Was sent home on a slow prednisone taper with 40 mg p.o. daily. She did well for several days until readmitted to [facility] on Monday with recurrent nausea vomiting. Lack of bowel movement and abdominal distention. Patient was admitted placed on IV Solu-Medrol and given IV antibiotics including metronidazole. She did begin to pass flatus last evening had a bowel movement earlier today. Patient states abdominal discomfort remains but has lessened. Patient denies any nausea vomiting since admission she is not anxious to restart diet. Family history is noncontributory. She has been followed by Dr. Marks as her skin diver recently. Review of Systems Review of Systems: Review of systems noncontributory. [facility] Past Medical History Medical History (Updated 08/21/22 @ 05:42 by Tiffanie Jon DO) Abdominal wall cellulitis 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 Anemia Crohn's disease of small intestine with complication GERD with esophagitis Hepatic steatosis History of small bowel obstruction Has been treated conservatively and also required surgical intervention x 2 with adhesiolysis. Menorrhagia Morbid obesity Nephrolithiasis Partial obstruction of small intestine Partial small bowel obstruction Port-A-Cath in place History of right sided Port-A-Cath with subsequent removal placed 2011 removed proximally 2016. Placed due to poor vascular access. Tobacco abuse Surgical History Surgical History History of appendectomy Appendix removed during 2nd exploratory laparotomy. History of cholecystectomy History of exploratory laparotomy Has had what sounds like an exploratory laparotomy with adhesiolysis x 2 in [facility]. History of tonsillectomy Status post laparoscopic hernia repair With mesh. Family History Family History Father
[2022-08-22 15:07] VITALS: BP 155/88
--- NOTE | 2022-08-22 16:29 | PM.IMPN ---
Progress Note: A&P Assessment and Plan (1) Partial small bowel obstruction: Code(s): K56.600 - Partial intestinal obstruction, unspecified as to cause Status: Acute (2) Acute Crohn's disease with intestinal obstruction: Code(s): K50.912 - Crohn's disease, unspecified, with intestinal obstruction Status: Acute (3) GERD (gastroesophageal reflux disease): Code(s): K21.9 - Gastro-esophageal reflux disease without esophagitis Status: Acute (4) Morbid obesity with BMI of 45.0-49.9, adult: Code(s): E66.01 - Morbid (severe) obesity due to excess calories; Z68.42 - Body mass index [BMI] 45.0-49.9, adult Status: Acute (5) Tobacco abuse: Code(s): Z72.0 - Tobacco use Status: Acute Plan The patient has partial small-bowel obstruction due to acute flare of Crohn's disease. Patient has been placed on antibiotic therapy with Levaquin and Flagyl. The patient is not currently having any vomiting so NG tube has been deferred. Continue NPO diet with IV fluid hydration as patient has not had a bowel movement yet. She is passing flatus. Continue to encourage ambulation. Continue analgesics and antiemetics as needed. Appreciate general surgery consultation. Solu-Medrol has been initiated 60 mg q.8 hours per Gastroenterology recommendations. appreciate GI consultation who recommended considering alternative biologic agent, however she will need to follow-up with her established GI in order to make these changes. General surgery has been consulted. Hopefully patient's bowel obstruction will improve with treatment of acute inflammatory process and conservative measures. Repeat KUB on 08/21/2022 still with possible partial SBO Patient has chronic GERD. Continue IV Protonix while hospitalized. Patient acutely anxious regarding hospitalization. continue BuSpar 5 mg b.i.d. Patient reports this is improving her symptoms. Low-dose Ativan q8h as needed for acute anxiety episodes Patient has been educated on smoking cessation. She declined need for nicotine patch. She does not feel that her anxiety is exacerbated by nicotine cravings or desire to smoke. Subjective Date/time seen: 08/22/22 16:29 Interval history: date of service: 08/22/2022 Roma Clayton is a 42-year-old female with a history of Crohn's disease, small-bowel obstruction, tobacco abuse, nephrolithiasis, hepatic steatosis, anemia, and anxiety who is seen in follow-up for partial small-bowel obstruction and acute Crohn's disease. she is feeling better today. She endorses mid abdominal pain which she rates as 5-7/10. She has been able to get up and walk around and is tolerating this well. She is passing flatus but has not had a bowel movement. She denies any nausea or vomiting. Denies fevers, chills, sweats. Overall doing much improved today. Feels that her anxiety is better and that the BuSpar is helping very much. Review of Systems Review of Systems: All systems reviewed & are unremarkable except as noted in HPI and below Exam Narrative: General: Obese, well-appearing 42-year-old female, sitting up in bed , comfortable, NARD Neuro: awake, alert and oriented x4, speech clear, no focal neuro deficits noted HEENMT: normocephalic, atraumatic, EOMI, sclerae anicteric, moist oral mucosa Respiratory: clear to auscultation bilaterally, nonlabored breathing Cardio: regular rate, regular rhythm with S1-S2 Abdomen: obese abdomen, hypoactive bowel sounds, soft, mildly tender to palpation in periumbilical region Extremities: no edema, erythema, or tenderness to palpation, DP pulses 2+ bilaterally Skin: no rashes or lesions, warm and dry Psych: Appropriate mood and affect, judgment and insight intact Objective Data Vital Signs Vital Signs: Vital Signs - 24 hr 08/21/22 20:53 08/21/22 20:45 08/22/22 05:52 Temperature 97.4 F L 97.4 F L Pulse Rate 51 L 60 Respiratory Rate 20 14 Blood Pressure 168/82 H 160/
[2022-08-22 21:30] VITALS: BP 159/69; PULSE 55; RESP 18; TEMP 36.5; O2SAT 100
[2022-08-23] MEDS: HYDROmorphone HCL INJ (*CRX) 1 MG/ML SYR 0.5 MG IV PUSH ×6 (02:42→23:26)
[2022-08-23] MEDS: hydrALAZINE HCL 20 MG/ML VIAL 10 MG IV PUSH (04:56)
[2022-08-23] MEDS: metroNIDAZOLE 500 MG/ISO 100ML 500 MG/100 ML BAG 100 MG IVPB ×3 (05:36→21:04)
[2022-08-23] MEDS: methylPREDNISolone SOD SUCC 125 MG VIAL 60 MG IV PUSH ×3 (05:36→21:03)
[2022-08-23 05:51] VITALS: BP 179/68; PULSE 56; RESP 18; TEMP 36.7; O2SAT 100
[2022-08-23] MEDS: busPIRone HCL 5 MG TABLET PO ×2 (08:08→20:02)
[2022-08-23] MEDS: ENOXAPARIN 40 MG/0.4 ML SYRINGE SUB-Q (08:08)
[2022-08-23] MEDS: PANTOPRAZOLE SODIUM IV 40 MG VIAL IV PUSH (08:08)
--- NOTE | 2022-08-23 08:25 | WPDGIPROGNO ---
Progress Note: A&P Assessment and Plan (1) Partial small bowel obstruction: Code(s): K56.600 - Partial intestinal obstruction, unspecified as to cause Status: Acute Assessment and Plan: Small obstruction appears to be resolving. Plan to start with liquid diet advanced slowly. (2) Crohn's disease: Code(s): K50.90 - Crohn's disease, unspecified, without complications Status: Acute Assessment and Plan: Continue he Imuran. Complete 7-10 day course of antibiotic therapy including Flagyl. As diet as tolerated will change from Solu-Medrol to prednisone over the next day. (3) Morbid obesity with BMI of 45.0-49.9, adult: Code(s): E66.01 - Morbid (severe) obesity due to excess calories; Z68.42 - Body mass index [BMI] 45.0-49.9, adult Status: Acute Subjective Date/time seen: 08/23/22 08:25 Interval history: Patient feels much improved this morning. Had a good bowel movement. Pain is beginning to lessen. She is hungry. Review of Systems Review of Systems: Review of systems noncontributory. Exam Narrative: Physical exam reveals patient be alert afebrile. Vital signs stable. HEENT exam reveals no icterus. Lungs are clear. Heart without murmur. Abdomen bowel sounds present soft she has modest tenderness in the mid abdomen near previous surgical scar. Objective Data Vital Signs Vital Signs: Vital Signs - 24 hr 08/22/22 14:04 08/22/22 15:07 08/22/22 21:30 Temperature 98.4 F 97.7 F Pulse Rate 60 55 L Respiratory Rate 18 18 Blood Pressure 178/80 H 155/88 H 159/69 H Pulse Oximetry 100 100 08/23/22 05:51 Temperature 98.1 F Pulse Rate 56 L Respiratory Rate 18 Blood Pressure 179/68 H Pulse Oximetry 100 Intake/Output Intake/Output: Intake & Output 08/20/22 08/21/22 08/22/22 08/23/22 23:59 23:59 23:59 23:59 Intake Total 2100 2300 2450 150 Output Total 600 900 Balance 2100 1700 1550 150 Meds/Results Medications: Active Medications Generic Name Dose Route Start Last Admin Trade Name Freq PRN Reason Stop Dose Admin Buspirone HCl 5 mg 08/21/22 21:00 02/07/23 08:08 Buspirone Hcl 5 Mg Tablet PO 5 mg Q12HR PAULA Administration Diphenhydramine HCl 25 mg 08/21/22 23:01 08/22/22 20:30 Diphenhydramine Hcl Inj 50 Mg/Ml Vial IV PUSH 25 mg Q6H PRN Administration anxiety not controlled with ativan Enoxaparin Sodium 40 mg 08/21/22 09:00 08/23/22 08:08 Enoxaparin 40 Mg/0.4 Ml Syringe SUB-Q 40 mg DAILY PAULA Administration Hydralazine HCl 10 mg 08/22/22 05:48 08/23/22 04:56 Hydralazine Hcl 20 Mg/Ml Vial IV PUSH 10 mg Q4H PRN Administration SBP greater than 160 Hydromorphone HCl 0.5 mg 08/20/22 20:15 08/23/22 05:35 Hydromorphone Hcl Inj (*Crx) 1 Mg/Ml Syr IV PUSH 0.5 mg Q3H PRN Administration Pain Rated 7-10 Metronidazole 500 mg in 100 mls @ 100 mls/hr 08/21/22 06:00 08/23/22 05:36 Flagyl 500 Mg/Iso Soln 100 Ml IVPB 100 mls/hr Q8H PAULA Administration Levofloxacin/Dextrose 750 mg in 150 mls @ 100 mls/hr 08/22/22 00:00 08/23/22 01:25 Levaquin 750 Mg/D5w 150 Ml IVPB Infused Q24H PAULA Infusion Sodium Chloride 1,000 mls @ 125 mls/hr 08/20/22 20:15 08/22/22 20:30 Normal Saline Iv IV CONT 125 mls/hr .Q8H PAULA Administration Acetaminophen 1,000 mg in 100 mls @ 400 mls/hr 08/22/22 16:34 Ofirmev 1,000 Mg Ivpb IVPB 08/23/22 16:33 Q6H PRN Pain Rated 4-6 Lorazepam 0.5 mg 08/21/22 13:59 08/22/22 00:23 Lorazepam (*Crx) 0.5 Mg Tablet PO 0.5 mg Q8H PRN Administration Anxiety Methylprednisolone Sodium Succinate 60 mg 08/21/22 06:00 08/23/22 05:36 Methylprednisolone Sod Succ 125 Mg Vial IV PUSH 60 mg Q8HR PAULA Administration Ondansetron HCl 4 mg 08/20/22 20:15 08/21/22 09:00 Ondansetron Inj 4 Mg/2 Ml Vial IV PUSH 4 mg Q4H PRN Administration Nausea Pantoprazole Sodium 40 mg 08/21/22 09:00 08/23/22 08:08
[2022-08-23 08:28] LABS: Hematocrit 35.7 % (37.0-47.0); Hemoglobin 11.2 g/dL (12.0-15.0); Mean Corpuscular HGB Conc 31.4 g/dl (32-36); Mean Corpuscular Hemoglobin 25.2 pg (26-34); Mean Corpuscular Volume 80.4 fl (80-100); Mean Platelet Volume 10.1 fl (7.4-10.4); Platelet Count Result 343 k/mm3 (150-375); Red Blood Count 4.44 M/mm3 (4.2-5.4); White Blood Count 7.5 K/mm3 (4.5-10.0)
[2022-08-23 08:40] LABS: Anion Gap 9 mmol/L (8-16); Blood Urea Nitrogen 15 mg/dL (7-17); Carbon Dioxide 24 mmol/L (22-30); Chloride 101 mmol/L (98-107); Estimated CRCL calculation 120 ml/min; Estimated Glomerular Filt Rate > 60; Glucose 117 mg/dL (65-110); Potassium 3.8 mmol/L (3.4-5.0); Sodium 134 mmol/L (137-145)
[2022-08-23] MEDS: SODIUM CHLORIDE 0.9% IV 1,000 ML 95 ML IV CONT ×2 (08:49→23:26)
[2022-08-23] MEDS: LORazepam (*CRX) 0.5 MG TABLET PO (12:55)
--- NOTE | 2022-08-23 13:11 | PM.PNGS ---
Progress Note: A&P Assessment and Plan (1) Acute Crohn's disease with intestinal obstruction: Code(s): K50.912 - Crohn's disease, unspecified, with intestinal obstruction Status: Acute Assessment and Plan: Clinically improving with medical management of her Crohn's exacerbation. Bowels are moving. She is tolerating a liquid diet. Okay to advance diet slowly as tolerated. No indication for surgery at this time. Will sign off. Please let us know if there are any surgical concerns in the future. Plan I have discussed the patient's case and plan of care with Dr. Le. Subjective Subjective Date/Time Seen: 08/23/22 13:11 Patient reports: feels better, still having pain, flatus, bowel movement and afebrile Interval history: Patient reports feeling better this morning because her abdominal pain seems better controlled, but she is still having pain. She reports her pain is primarily in the epigastric area and LUQ. She denies having any nausea or vomiting overnight or this morning. She was advanced to a full liquid diet today by GI and is currently tolerating liquids well. She is passing flatus and had one BM this morning. Review of Systems Review of Systems: ROS unchanged Exam Const: General: comfortable and no acute distress Orientation/consciousness: patient oriented x3 GI: Inspection: non-distended GI Palp: Yes Soft to palpation, Yes Tenderness to palpation present (GI) (most focally in the LUQ and epigastrum but also some mild TTP in LLQ), No Guarding due to palpation present (GI) and No Rebound tenderness present Auscultation: normal bowel sounds Psych: Mental Status: mental status grossly normal Affect: normal affect Objective Data Vital Signs Vital Signs: Vital Signs - 24 hr 08/22/22 14:04 08/22/22 15:07 08/22/22 21:30 Temperature 98.4 F 97.7 F Pulse Rate 60 55 L Respiratory Rate 18 18 Blood Pressure 178/80 H 155/88 H 159/69 H Pulse Oximetry 100 100 08/23/22 05:51 Temperature 98.1 F Pulse Rate 56 L Respiratory Rate 18 Blood Pressure 179/68 H Pulse Oximetry 100 Intake/Output Intake/Output: Intake & Output 08/20/22 08/21/22 08/22/22 08/23/22 23:59 23:59 23:59 23:59 Intake Total 2100 2300 2450 1150 Output Total 600 900 Balance 2100 1700 1550 1150 Meds/Results Medications: Active Medications Generic Name Dose Route Start Last Admin Trade Name Freq PRN Reason Stop Dose Admin Buspirone HCl 5 mg 08/21/22 21:00 08/23/22 08:08 Buspirone Hcl 5 Mg Tablet PO 5 mg Q12HR PAULA Administration Diphenhydramine HCl 25 mg 08/21/22 23:01 08/22/22 20:30 Diphenhydramine Hcl Inj 50 Mg/Ml Vial IV PUSH 25 mg Q6H PRN Administration anxiety not controlled with ativan Enoxaparin Sodium 40 mg 08/21/22 09:00 08/23/22 08:08 Enoxaparin 40 Mg/0.4 Ml Syringe SUB-Q 40 mg DAILY PAULA Administration Hydralazine HCl 10 mg 08/22/22 05:48 08/23/22 04:56 Hydralazine Hcl 20 Mg/Ml Vial IV PUSH 10 mg Q4H PRN Administration SBP greater than 160 Hydromorphone HCl 0.5 mg 08/20/22 20:15 08/23/22 09:17 Hydromorphone Hcl Inj (*Crx) 1 Mg/Ml Syr IV PUSH 0.5 mg Q3H PRN Administration Pain Rated 7-10 Metronidazole 500 mg in 100 mls @ 100 mls/hr 08/21/22 06:00 08/23/22 05:36 Flagyl 500 Mg/Iso Soln 100 Ml IVPB 100 mls/hr Q8H PAULA Administration Levofloxacin/Dextrose 750 mg in 150 mls @ 100 mls/hr 08/22/22 00:00 08/23/22 01:25 Levaquin 750 Mg/D5w 150 Ml IVPB Infused Q24H PAULA Infusion Sodium Chloride 1,000 mls @ 95 mls/hr 08/20/22 20:15 08/23/22 08:49 Normal Saline Iv IV CONT 95 mls/hr .[id number] PAULA Administration Acetaminophen 1,000 mg in 100 mls @ 400 mls/hr 08/22/22 16:34 08/23/22 12:49 Ofirmev 1,000 Mg Ivpb IVPB 08/23/22 16:33 400 mls/hr Q6H PRN Administration Pain Rated 4-6 Lorazepam 0.5 mg 08/21/22 13:59 08/23/22 12:55 Lorazepam (*Crx) 0.5 Mg Tablet PO 0.5 mg Q8H PRN Adminis
[2022-08-23] MEDS: HYDROcodone/acetaminophen (*CRX) 10-325 MG TABLET 1 TAB PO (13:51)
[2022-08-23 14:00] VITALS: BP 163/85; PULSE 59; RESP 18; TEMP 36.8; O2SAT 99
--- NOTE | 2022-08-23 15:58 | PM.IMPN ---
Progress Note: A&P Assessment and Plan (1) Partial small bowel obstruction: Code(s): K56.600 - Partial intestinal obstruction, unspecified as to cause Status: Acute Assessment and Plan: The patient has partial small-bowel obstruction due to acute flare of Crohn's disease. Patient has been placed on antibiotic therapy with Levaquin and Flagyl. appears obstruction is resolving inpatient has had a bowel movement. She has been started on a clear liquid diet and will continue to advance as tolerated. No indication for surgical intervention. (2) Acute Crohn's disease with intestinal obstruction: Code(s): K50.912 - Crohn's disease, unspecified, with intestinal obstruction Status: Acute Assessment and Plan: Continue with IV Solu-Medrol at this time per Gastroenterology recommendations with plans to transition to oral prednisone, likely tomorrow. Continue Flagyl and Levaquin for total of 7-10 days. (3) GERD (gastroesophageal reflux disease): Code(s): K21.9 - Gastro-esophageal reflux disease without esophagitis Status: Acute Assessment and Plan: Patient has chronic GERD. Continue IV Protonix while hospitalized. (4) Anxiety: Code(s): F41.9 - Anxiety disorder, unspecified Status: Acute Assessment and Plan: Patient acutely anxious regarding hospitalization. continue BuSpar 5 mg b.i.d. Patient reports this is improving her symptoms. Low-dose Ativan q8h as needed for acute anxiety episodes (5) Tobacco abuse: Code(s): Z72.0 - Tobacco use Status: Acute Assessment and Plan: Patient has been educated on smoking cessation. She declined need for nicotine patch. She does not feel that her anxiety is exacerbated by nicotine cravings or desire to smoke. Subjective Date/time seen: 08/23/22 15:58 Interval history: date of service: 08/23/2022 Roma Clayton is a 42-year-old female with a history of Crohn's disease, small-bowel obstruction, tobacco abuse, nephrolithiasis, hepatic steatosis, anemia, and anxiety who is seen in follow-up for partial small-bowel obstruction and acute Crohn's disease. she is doing better today. States her abdominal pain is improved but still rates it as 7/10. She had a bowel movement this morning and states that her stool was hard. She will attempt clears this morning. she denies nausea or vomiting. She continues to feel very anxious and feels like her anxiety is worsened by thought of attempting to eat because she does not want her pain to worsen. Review of Systems Review of Systems: All systems reviewed & are unremarkable except as noted in HPI and below Exam Narrative: General: Obese, well-appearing 42-year-old female, sitting up in bed , comfortable, NARD Neuro: awake, alert and oriented x4, speech clear, no focal neuro deficits noted HEENMT: normocephalic, atraumatic, EOMI, sclerae anicteric, moist oral mucosa Respiratory: clear to auscultation bilaterally, nonlabored breathing Cardio: regular rate, regular rhythm with S1-S2 Abdomen: obese abdomen, normoactive bowel sounds, soft, mildly tender to palpation in periumbilical region Extremities: no edema, erythema, or tenderness to palpation, DP pulses 2+ bilaterally Skin: no rashes or lesions, warm and dry Psych: Appropriate mood and affect, judgment and insight intact Objective Data Vital Signs Vital Signs: Vital Signs - 24 hr 08/22/22 21:30 08/23/22 05:51 Temperature 97.7 F 98.1 F Pulse Rate 55 L 56 L Respiratory Rate 18 18 Blood Pressure 159/69 H 179/68 H Pulse Oximetry 100 100 Intake/Output Intake/Output: Intake & Output 08/20/22 08/21/22 08/22/22 08/23/22 23:59 23:59 23:59 23:59 Intake Total 2100 2300 2450 1450 Output Total 600 900 Balance 2100 1700 1550 1450 Meds/Results Medications: Active Medications Generic Name Dose Route Start Last Admin Trade Name Freq PRN Reason Stop Dose Admin Aceta
[2022-08-23] MEDS: diphenhydrAMINE HCl INJ 50 MG/ML VIAL 25 MG IV PUSH (20:01)
[2022-08-23 22:00] VITALS: BP 145/77; PULSE 57; RESP 20; TEMP 36.6; O2SAT 100
[2022-08-24] MEDS: HYDROcodone/acetaminophen (*CRX) 10-325 MG TABLET 1 TAB PO ×2 (03:24→15:42)
[2022-08-24] MEDS: LORazepam (*CRX) 0.5 MG TABLET PO ×2 (03:25→13:34)
[2022-08-24] MEDS: metroNIDAZOLE 500 MG/ISO 100ML 500 MG/100 ML BAG 100 MG IVPB (05:03)
[2022-08-24] MEDS: methylPREDNISolone SOD SUCC 125 MG VIAL 60 MG IV PUSH (05:04)
[2022-08-24] MEDS: hydrALAZINE HCL 20 MG/ML VIAL 10 MG IV PUSH (05:04)
[2022-08-24 05:59] LABS: Hematocrit 32.9 % (37.0-47.0); Hemoglobin 10.3 g/dL (12.0-15.0); Mean Corpuscular HGB Conc 31.3 g/dl (32-36); Mean Corpuscular Hemoglobin 25.2 pg (26-34); Mean Corpuscular Volume 80.4 fl (80-100); Mean Platelet Volume 10.2 fl (7.4-10.4); Platelet Count Result 311 k/mm3 (150-375); Red Blood Count 4.09 M/mm3 (4.2-5.4); Red Cell Distribution Width 16.8 % (11.5-14.5); White Blood Count 8.7 K/mm3 (4.5-10.0)
[2022-08-24 06:00] VITALS: BP 176/72; PULSE 55; RESP 16; TEMP 36.6; O2SAT 98
[2022-08-24 06:11] LABS: Anion Gap 4 mmol/L (8-16); Blood Urea Nitrogen 15 mg/dL (7-17); Calcium 8.5 mg/dL (8.4-10.2); Carbon Dioxide 26 mmol/L (22-30); Chloride 107 mmol/L (98-107); Estimated CRCL calculation 120 ml/min; Estimated Glomerular Filt Rate > 60; Glucose 115 mg/dL (65-110); Potassium 3.7 mmol/L (3.4-5.0); Sodium 137 mmol/L (137-145)
--- NOTE | 2022-08-24 07:46 | WPDGIPROGNO ---
Progress Note: A&P Assessment and Plan (1) Crohn's disease: Code(s): K50.90 - Crohn's disease, unspecified, without complications Status: Acute Assessment and Plan: Patient with established diagnosis of Crohn's disease. Followed by Dr. Frankie malave. This appears be the etiology for recent partial small bowel obstruction. Plan to continue Humira which she receives every 2 weeks. Currently on steroids. Plan to discharge on prednisone 40 mg p.o. daily. Additionally she should continue antibiotics for 1 week after discharge. patient should follow up with established special police officer Dr. Frankie malave 1-2 weeks after discharge. After being seen by Dr. Frankie malave anticipate tapering of prednisone subsequently. (2) Partial small bowel obstruction: Code(s): K56.600 - Partial intestinal obstruction, unspecified as to cause Status: Acute Assessment and Plan: Bowel obstruction on the basis of active Crohn's disease appears resolved. Plan to advance to low residue diet. (3) Morbid obesity with BMI of 45.0-49.9, adult: Code(s): E66.01 - Morbid (severe) obesity due to excess calories; Z68.42 - Body mass index [BMI] 45.0-49.9, adult Status: Acute Subjective Date/time seen: 08/24/22 07:46 Interval history: Patient alert comfortable this morning. Tolerating liquid diet with no difficulties. Denies abdominal pain. Passing stool and flatus. All consistent with resolution of her partial small bowel obstruction. Review of Systems Review of Systems: Review of systems noncontributory. Exam Narrative: Physical exam reveals patient be alert. She is afebrile and anicteric. HEENT exam unremarkable. Lungs are clear. Heart without murmur. Abdomen is obese. Bowel sounds are present soft and nontender this morning. Objective Data Vital Signs Vital Signs: Vital Signs - 24 hr 08/23/22 14:00 08/23/22 22:00 Temperature 98.2 F 97.8 F Pulse Rate 59 L 57 L Respiratory Rate 18 20 Blood Pressure 163/85 H 145/77 H Pulse Oximetry 99 100 Intake/Output Intake/Output: Intake & Output 08/21/22 08/22/22 08/23/22 08/24/22 23:59 23:59 23:59 23:59 Intake Total 2300 2450 3090 Output Total 600 900 Balance 1700 1550 3090 Meds/Results Medications: Active Medications Generic Name Dose Route Start Last Admin Trade Name Freq PRN Reason Stop Dose Admin Acetaminophen 650 mg 08/23/22 13:14 Acetaminophen 325 Mg Tablet PO Q6H PRN Mild Pain (1-3) or Fever Hydrocodone Bitart/Acetaminophen 1 tab 08/23/22 13:12 Hydrocodone/Acetaminophen (*Crx) 5-325 Mg Tablet PO Q6H PRN Pain Rated 4-6 Hydrocodone Bitart/Acetaminophen 1 tab 08/23/22 13:12 08/24/22 03:24 Hydrocodone/Acetaminophen (*Crx) 10-325 Mg Tablet PO 1 tab Q6H PRN Administration Pain Rated 7-10 Buspirone HCl 5 mg 08/21/22 21:00 08/23/22 20:02 Buspirone Hcl 5 Mg Tablet PO 5 mg Q12HR PAULA Administration Diphenhydramine HCl 25 mg 08/21/22 23:01 08/23/22 20:01 Diphenhydramine Hcl Inj 50 Mg/Ml Vial IV PUSH 25 mg Q6H PRN Administration anxiety not controlled with ativan Enoxaparin Sodium 40 mg 08/21/22 09:00 08/23/22 08:08 Enoxaparin 40 Mg/0.4 Ml Syringe SUB-Q 40 mg DAILY PAULA Administration Hydralazine HCl 10 mg 08/22/22 05:48 08/24/22 05:04 Hydralazine Hcl 20 Mg/Ml Vial IV PUSH 10 mg Q4H PRN Administration SBP greater than 160 Hydromorphone HCl 0.5 mg 08/20/22 20:15 08/23/22 23:26 Hydromorphone Hcl Inj (*Crx) 1 Mg/Ml Syr IV PUSH 0.5 mg Q3H PRN Administration Pain Rated 7-10 Metronidazole 500 mg in 100 mls @ 100 mls/hr 08/21/22 06:00 08/24/22 06:05 Flagyl 500 Mg/Iso Soln 100 Ml IVPB 0 mls/hr Q8H PAULA Infusion Levofloxacin/Dextrose 750 mg in 150 mls @ 100 mls/hr 08/22/22 00:00 08/24/22 01:00 Levaquin 750 Mg/D5w 150 Ml IVPB 0 mls/hr Q24H PAULA Infusion Sodium Chloride 1,000 mls @ 95 mls/hr
[2022-08-24] MEDS: HYDROcodone/acetaminophen (*CRX) 5-325 MG TABLET 1 TAB PO (09:40)
[2022-08-24] MEDS: PANTOPRAZOLE 40 MG TABLET PO (09:40)
[2022-08-24] MEDS: levoFLOXacin 500 MG TABLET PO (09:41)
[2022-08-24] MEDS: busPIRone HCL 5 MG TABLET PO (09:41)
[2022-08-24] MEDS: ENOXAPARIN 40 MG/0.4 ML SYRINGE SUB-Q (09:42)
[2022-08-24] MEDS: metroNIDAZOLE 250 MG TABLET 500 MG PO (13:34)
[2022-08-24 14:00] VITALS: BP 132/73; PULSE 85; RESP 16; TEMP 36.4; O2SAT 100
--- NOTE | 2022-08-24 14:07 | PM.DS ---
DS: Admitting Diagnosis Discharge Date 08/24/2022 1410 Admitting Diagnosis Partial small bowel obstruction Acute Crohn's disease with intestinal obstruction GERD (gastroesophageal reflux disease) Morbid obesity with BMI of 45.0-49.9, adult Tobacco abuse DS: Discharge Diagnosis Discharge Diagnosis (1) Partial small bowel obstruction: Code(s): K56.600 - Partial intestinal obstruction, unspecified as to cause Status: Acute (2) Acute Crohn's disease with intestinal obstruction: Code(s): K50.912 - Crohn's disease, unspecified, with intestinal obstruction Status: Acute (3) GERD (gastroesophageal reflux disease): Code(s): K21.9 - Gastro-esophageal reflux disease without esophagitis Status: Chronic (4) Anxiety: Code(s): F41.9 - Anxiety disorder, unspecified Status: Chronic (5) Tobacco abuse: Code(s): Z72.0 - Tobacco use Status: Chronic (6) Nephrolithiasis: Code(s): N20.0 - Calculus of kidney Status: Chronic Assessment and Plan: Incidental finding DS: Summary Hospital Course Reason for hospitalization: Abdominal pain. Hospital Course: Roma Clayton is a 42-year-old female with morbid obesity, tobacco dependence, Crohn's disease, GERD and prior bowel obstructions who presented to the ER with abdominal pain.?She was recently hospitalized at this facility from -08/15/2022 for Crohn's flare and was treated with IV steroids. She was sent home with a prednisone taper, however, she had acute worsening of abdominal pain approximately 2 days prior to admission.?The pain was in the periumbilical region and radiated to the left abdomen.? She reported small amounts of mucous and blood in her stool. The pain worsened after eating.? It was a 10/10 in intensity and was squeezing, cramping and colicky in nature. CT abd/pelvis suggested multiple mildly dilated proximal small bowel loops suggesting partial small bowel obstruction and probable mild wall thickening of several small bowel loops (1) Partial small bowel obstruction: The patient has partial small-bowel obstruction due to acute flare of Crohn's disease.? Treated with IV/PO Levaquin and Flagyl. General surgery and GI were consulted. She was placed on bowel rest and diet slowly advanced.? (2) Acute Crohn's disease with intestinal obstruction: Treated with IV Solu-Medrol GI consulted. Transitioned to oral prednisone 40 mg daily until seen by Dr. Marks (recommended within 1-2 weeks) and then subsequent taper per her GI provider. The patient reports difficulty getting appointments with her GI doctor. We discussed switching providers. Dr. Paz's office information given to patient at discharge. Filtration Plant Mechanic consulted. Low residue diet discussed. Counseled on quitting smoking. (3) GERD (gastroesophageal reflux disease): Patient has chronic GERD.? Treated with Protonix while hospitalized. (4) Anxiety: Patient acutely anxious regarding hospitalization.? Treated with BuSpar 5 mg b.i.d. Patient reports this is improving her symptoms.? Low-dose Ativan q8h as needed for acute anxiety episodes Patient discharged home on buspar. (5) Tobacco abuse: Patient has been educated on smoking cessation.? She declined need for nicotine patch.? She does not feel that her anxiety is exacerbated by nicotine cravings or desire to smoke. Patient was treated with bowel rest, IV steroids and IV antibiotics. General Surgery and GI were consulted for evaluation. No surgical intervention needed. She was counseled on antibiotics, oral steroids, diet modifications, GI follow up and when to seek further care. Patient was noted to have significant anxiety and tearful at times. She reported frustration with illness and frequent hospitalizations. All questions answered to the best of my ability. She was discharged home in stable condition and tolerating diet. Status at Discharge Cognitive/behavio
== END 2022-08-24 16:30 | disposition home or self-care (01) | DRG 387 ==
LOC: ANHED 20:27 → ANH3MEDSUR 21:25
PROVIDERS: Physician Assistant; Admitting Provider Internal Medicine; Emergency Provider Emergency Medicine; PCP Family Medicine; Visit Provider Nurse Practitioner Family
DX: K50.012 Crohn's disease of small intestine with intestinal obstruction (principal); Z20.822 Contact with and (suspected) exposure to COVID-19; K21.9 Gastro-esophageal reflux disease without esophagitis; F41.9 Anxiety disorder, unspecified; N20.0 Calculus of kidney; D64.9 Anemia, unspecified; K76.0 Fatty (change of) liver, not elsewhere classified; G47.33 Obstructive sleep apnea (adult) (pediatric); E66.01 Morbid (severe) obesity due to excess calories; F17.210 Nicotine dependence, cigarettes, uncomplicated; Z68.34 Body mass index [BMI] 34.0-34.9, adult; Z90.49 Acquired absence of other specified parts of digestive tract
CPT/HCPCS: 36415; 74019; 74177; 80048; 80053; 81003; 81025; 83605; 83690; 83735; 85025; 85027; 86140; 87636; 96365; 96375; 96376; 99285; A9270; C9113; G0378; J0131; J0360; J1170; J1200; J1650; J1956; J2405; J2930; J7030; Q9967

== ENCOUNTER 2022-10-04 11:36 | Emergency (ER) | payer OTHER, SELFPAY ==
--- NOTE | ~2022-10-04 | US_ITS ---
Duplex Sonography of the left extremity: Indication: Pain and swelling Findings: Sagittal and transverse B-mode images as well as color-flow imaging were performed on the l eft femoral and popliteal veins. B-mode examination was done without and with compression in the tra nsverse plane. There is good visualization of the common femoral, proximal profunda femoral, superfi cial femoral, greater saphenous, and popliteal veins. Normal flow was seen on color-flow imaging. No rmal compressibility was demonstrated. Left posterior tibial and peroneal veins are also patent. Impression: No evidence of deep vein thrombosis involving the left lower extremity. Reviewed, dictated and finalized at location M. Impression: No evidence of deep vein thrombosis involving the left lower extremity.
--- NOTE | ~2022-10-04 | XR_ITS ---
Left foot Technique: AP, oblique, and lateral views were obtained. Clinical History: Pain Findings: No acute fracture or dislocation is seen. Osseous alignment is anatomic. Plantar calcaneal spur noted. Joint spaces are preserved without erosive or degenerative change. Soft tissues are unrem arkable. Impression: No acute abnormality. Plantar calcaneal spur. Reviewed, dictated and finalized at [facility]. Impression: No acute abnormality. Plantar calcaneal spur.
[2022-10-04 11:39] VITALS: BP 143/96; PULSE 102; RESP 20; TEMP 37; O2SAT 100
--- NOTE | 2022-10-04 12:32 | ED.LOWEXIN ---
HPI - Extremity Injury (Lower) General Chief Complaint: Extremity Injury, Lower Stated Complaint: left ankle pain Time Seen by Provider: 10/04/22 12:16 History of Present Illness HPI Narrative: 42-year-old female with history of Crohn's disease on Humira and budesonide daily here for evaluation of atraumatic left foot pain over the past week. States that the pain begins in her left calf and moves down into her left medial malleolus. Pain is only present when she is walking and bearing weight. She has not attempted any medicine for her pain. Denies significant swelling, redness, history of DVT. Related Data Home Medications Medication Instructions Recorded Confirmed budesonide 9 mg capsule,extended 9 mg PO DAILY 08/13/22 08/20/22 release omeprazole 20 mg capsule,delayed 20 mg PO BID 08/13/22 08/20/22 release prochlorperazine maleate 5 mg 5 mg PO Q8H PRN Nausea And Vomiting 08/13/22 08/20/22 tablet (Compazine) adalimumab 20 mg/0.4 mL 20 mg subcut [id number] 08/20/22 08/20/22 subcutaneous syringe kit Allergies Allergy/AdvReac Type Severity Reaction Status Date / Time Penicillins Allergy Unknown Rash Verified 10/04/22 12:12 morphine AdvReac Nausea and Verified 10/04/22 12:12 Vomiting Review of Systems Review of Systems: Gen.: Denies fevers or chills Eyes: Denies eye pain or visual change ENT: Denies congestion Respiratory: Denies shortness of breath or cough CV: Denies chest pain or palpitations GI: Reports abdominal pain nausea, emesis or diarrhea denies burning, urgency, frequency or hematuria Musculoskeletal: Reports left calf and ankle pain Neuro: Denies numbness, tingling, weakness or focal weakness Skin: Denies rash 10 point review of systems negative, other than as per history of present illness, past medical history and other positives and review of systems [facility] Past Medical History Medical History Abdominal wall cellulitis 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 Anemia Crohn's disease of small intestine with complication GERD with esophagitis Hepatic steatosis History of small bowel obstruction Has been treated conservatively and also required surgical intervention x 2 with adhesiolysis. Menorrhagia Morbid obesity Nephrolithiasis Partial obstruction of small intestine Partial small bowel obstruction Port-A-Cath in place History of right sided Port-A-Cath with subsequent removal placed 2011 removed proximally 2017. Placed due to poor vascular access. Tobacco abuse Surgical History Surgical History History of appendectomy Appendix removed during 2nd exploratory laparotomy. History of cholecystectomy History of exploratory laparotomy Has had what sounds like an exploratory laparotomy with adhesiolysis x 2 in [facility]. History of tonsillectomy Status post laparoscopic hernia repair With mesh. Family History Family History Father Diabetes mellitus Mother Hypertension Sibling No problems noted. Other Crohn's colitis Social History Social History Social History: Her in her have been together for many years but they got in 2020. They have 1 cat. They have no children. 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 She had drinks alcohol infrequently and only in moderation. She uses marijuana daily. Surrogate decision maker: Dorota Clayton () Code status: Full code. Smoking packs per day: 0.2 Smoking cigarettes per day: 4.0 Years smoked: 16 Smoking pack-years: 3.20 Smoking status: Current every day smoker Tobacco type: cigarettes Second oswald
[2022-10-04 13:39] VITALS: BP 133/76; PULSE 86; RESP 16; O2SAT 98
== END 2022-10-04 13:40 | disposition home or self-care (01) ==
PROVIDERS: Emergency Provider Physician Assistant; PCP Family Medicine
DX: M25.572 Pain in left ankle and joints of left foot (principal); M79.605 Pain in left leg; K50.90 Crohn's disease, unspecified, without complications; K21.00 Gastro-esophageal reflux disease with esophagitis, without bleeding; E66.01 Morbid (severe) obesity due to excess calories; Z68.42 Body mass index [BMI] 45.0-49.9, adult; F17.210 Nicotine dependence, cigarettes, uncomplicated; F12.90 Cannabis use, unspecified, uncomplicated; Z79.620 Long term (current) use of immunosuppressive biologic
CPT/HCPCS: 73630; 93971; 99284

== ENCOUNTER 2023-06-22 10:36 | Emergency (ER) | payer OTHER, SELFPAY ==
[2023-06-22 10:45] VITALS: BP 154/88; PULSE 105; RESP 18; TEMP 36.6; O2SAT 100
--- NOTE | 2023-06-22 11:08 | ED.GENADULT ---
HPI - General Adult General Chief complaint: Extremity Problem,Nontraumatic Stated complaint: Lt Arm Pain Time Seen by Provider: 06/22/23 10:54 Source: patient and RN notes reviewed Mode of arrival: ambulatory Limitations: no limitations History of Present Illness HPI narrative: Patient presents today complaining of left forearm pain x1 week. She initially injured the area while trying to open a jar of pickles. States pain radiates from her wrist to the forearm and elbow. Denies numbness, but reports some tingling in fingers 2 3 and 4. She currently rates her pain 2/10 and has been taking Tylenol with some relief. Patient has Crohn's in takes 20 mg of prednisone daily. She is unable to take NSAIDs. Related Data Allergies Allergy/AdvReac Type Severity Reaction Status Date / Time Penicillins Allergy Unknown Rash Verified 06/22/23 11:03 morphine AdvReac Nausea and Verified 06/22/23 11:03 Vomiting Review of Systems Review of Systems: CONSTITUTIONAL: Denies body aches, fever, chills, or sweats. EYES: Denies visual changes, redness, or discharge. ENT: Denies rhinorrhea, congestion, sore throat, or otalgia. CARDIOVASCULAR: Denies chest pain, palpitations, or edema. RESPIRATORY: Denies cough or dyspnea. GASTROINTESTINAL: Denies abdominal pain, nausea, vomiting, or diarrhea. GENITOURINARY: Denies dysuria or hematuria. SKIN: Denies rash, itching, or wounds. MUSCULOSKELETAL: + left forearm pain NEUROLOGIC: Denies headache, numbness, or weakness.+ tingling in fingers PSYCH: Denies depression or anxiety. [facility] Past Medical History Medical History Abdominal wall cellulitis 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 Anemia Crohn's disease of small intestine with complication GERD with esophagitis Hepatic steatosis History of small bowel obstruction Has been treated conservatively and also required surgical intervention x 2 with adhesiolysis. Menorrhagia Morbid obesity Nephrolithiasis Partial obstruction of small intestine Partial small bowel obstruction Port-A-Cath in place History of right sided Port-A-Cath with subsequent removal placed 2011 removed proximally 2016. Placed due to poor vascular access. Tobacco abuse Surgical History Surgical History History of appendectomy Appendix removed during 2nd exploratory laparotomy. History of cholecystectomy History of exploratory laparotomy Has had what sounds like an exploratory laparotomy with adhesiolysis x 2 in [facility]. History of tonsillectomy Status post laparoscopic hernia repair With mesh. Family History Family History Father Diabetes mellitus Mother Hypertension Sibling No problems noted. Other Crohn's colitis Social History Social History Social History: Her in her have been together for many years but they got in 2020. They have 1 cat. They have no children. 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 She had drinks alcohol infrequently and only in moderation. She uses marijuana daily. Surrogate decision maker: Dorota Clayton () Code status: Full code. Smoking packs per day: 0.2 Smoking cigarettes per day: 4.0 Years smoked: 16 Smoking pack-years: 3.20 Smoking status: Current every day smoker Tobacco type: cigarettes Second hand tobacco smoke exposure: Yes Smoking end date: 11/17/19 Alcohol intake: current Alcohol use details: 1-2 alcoholic beverages every 1-2 months. Substance use: current Substance use type: marijuana Other substance usage details: smokes marijauna every day [place]
== END 2023-06-22 11:15 | disposition home or self-care (01) ==
PROVIDERS: Emergency Provider Nurse Practitioner; PCP Family Medicine
DX: M77.8 Other enthesopathies, not elsewhere classified (principal); Z87.891 Personal history of nicotine dependence; K50.00 Crohn's disease of small intestine without complications; E66.01 Morbid (severe) obesity due to excess calories; Z68.38 Body mass index [BMI] 38.0-38.9, adult; K21.00 Gastro-esophageal reflux disease with esophagitis, without bleeding
CPT/HCPCS: 99211; G0463

== ENCOUNTER 2023-09-05 08:58 | Emergency (ER) | payer OTHER, SELFPAY ==
--- NOTE | ~2023-09-05 | XR_ITS ---
Clinical Indication: Shortness of breath PA and lateral views of the chest: Comparison: None Findings: The lungs are clear, without evidence of focal consolidation or pleural effusion. Cardiome diastinal silhouette is within normal limits. Bones and soft tissues are unremarkable. Impression: Normal chest. Reviewed, dictated and finalized at [facility]. ITY SYSTEM MANAGER Impression: Normal chest.
[2023-09-05 09:10] VITALS: O2SAT 97
[2023-09-05 09:13] VITALS: BP 160/88; PULSE 85; RESP 24; TEMP 37; O2SAT 100
[2023-09-05] MEDS: IPRATROPIUM BR 0.02% INH SOLN 0.5 MG/2.5 ML VIAL INHALATION (09:14)
[2023-09-05] MEDS: ALBUTEROL SULFATE NEB 2.5 MG/3 ML INH INHALATION ×2 (09:14→10:05)
--- NOTE | 2023-09-05 09:43 | ED.URI ---
HPI - URI/Sore Throat General Chief Complaint: Upper Respiratory Infection Stated Complaint: SOB,congested Time Seen by Provider: 09/05/23 09:43 Source: patient, RN notes reviewed and old records reviewed Mode of arrival: ambulatory Limitations: no limitations History of Present Illness HPI Narrative: 43-year-old female presents to the [facility] with complaints of shortness of breath and congestion that started Monday. States that she did nebulizer treatment last night. Patient has a history of hypertension has not taken her blood pressure medication in at least 2 days Has a history of asthma Onset (ago): day(s) (4) Related Data Allergies Allergy/AdvReac Type Severity Reaction Status Date / Time Penicillins Allergy Unknown Rash Verified 09/05/23 09:07 morphine AdvReac Nausea and Verified 09/05/23 09:07 Vomiting Review of Systems Review of Systems: All systems reviewed & are unremarkable except as noted in HPI and below Constitutional: Constitutional: Reports no additional constitutional complaints Eyes: Eyes: Reports no additional eye complaints ENT: Reports system reviewed and no additional complaints, except as documented Cardiovascular: Cardiovascular: Reports no additional cardiovascular complaints, Denies chest pain and Denies dyspnea Respiratory: Respiratory: Reports as per HPI, Reports chest congestion, Reports cough, Reports dyspnea, Denies stridor and Reports wheezing Gastrointestinal: Gastrointestinal: Reports no additional gastrointestinal complaints, Denies abdominal pain, Denies nausea and Denies vomiting Musculoskeletal: Musculoskeletal: Reports no additional musculoskeletal complaints Integumentary/Breasts: Skin/Breast: Reports system reviewed and no additional complaints, except as docu Neurologic: Reports system reviewed and no additional complaints, except as documented Psychiatric: Psychiatric: Reports no additional psychiatric complaints Allergic/Immunologic: Allergic/Immunologic: Reports no additional allergic/immunologic complaints [facility] Past Medical History Medical History (Updated 09/05/23 @ 14:05 by Yuni Gardiner APRN) Abdominal wall cellulitis 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 Anemia Anxiety Crohn's disease of small intestine with complication GERD with esophagitis Hepatic steatosis History of small bowel obstruction Has been treated conservatively and also required surgical intervention x 2 with adhesiolysis. Hypertension Menorrhagia Morbid obesity Nephrolithiasis Partial obstruction of small intestine Partial small bowel obstruction Port-A-Cath in place History of right sided Port-A-Cath with subsequent removal placed 2011 removed proximally 2016. Placed due to poor vascular access. Tobacco abuse Surgical History Surgical History History of appendectomy Appendix removed during 2nd exploratory laparotomy. History of cholecystectomy History of exploratory laparotomy Has had what sounds like an exploratory laparotomy with adhesiolysis x 2 in [facility]. History of tonsillectomy Status post laparoscopic hernia repair With mesh. Family History Family History Father Diabetes mellitus Mother Hypertension Sibling No problems noted. Other Crohn's colitis Social History Social History Social History: Her in her have been together for many years but they got in 2020. They have 1 cat. They have no children. 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 She had drinks alcohol infrequently and only in moderation. She uses marijuana daily. Surrogate decision maker: Dorota Clayton () Code status: Full code.
[2023-09-05 09:55] VITALS: PULSE 80; O2SAT 99
[2023-09-05] MEDS: predniSONE 20 MG TABLET 60 MG PO (10:05)
[2023-09-05 10:50] VITALS: BP 161/100; O2SAT 99
== END 2023-09-05 10:55 | disposition home or self-care (01) ==
PROVIDERS: Emergency Provider Nurse Practitioner; PCP Family Medicine
DX: J45.909 Unspecified asthma, uncomplicated (principal); Z87.891 Personal history of nicotine dependence; F12.90 Cannabis use, unspecified, uncomplicated; K21.00 Gastro-esophageal reflux disease with esophagitis, without bleeding; K50.00 Crohn's disease of small intestine without complications; I10 Essential (primary) hypertension; E66.01 Morbid (severe) obesity due to excess calories; Z68.43 Body mass index [BMI] 50.0-59.9, adult
CPT/HCPCS: 71046; 94640; 99213; G0463; J7512

== ENCOUNTER 2023-09-13 14:26 | Emergency (ER) | payer OTHER, SELFPAY ==
[2023-09-13] VITALS (14 sets, daily range): BP systolic 116–166; BP diastolic 70–93; PULSE 85–106; RESP 19–30; TEMP 36.5–37.6; O2SAT 97–100
--- NOTE | ~2023-09-13 | XR_ITS ---
EXAMINATION: XR chest 2V DATE: 09/13/2023 15:42 INDICATION: Shortness of breath. Fever. Cough. TECHNIQUE: Frontal and lateral views of the chest were obtained. COMPARISON: Chest 2 views 09/05/2023, CT abdomen and pelvis 08/20/2022 FINDINGS: Sensitivity is decreased by obesity. There is no pneumonia, pleural effusion, or pneumothor ax. The heart size is normal. Surgical clips in the right upper quadrant are likely from cholecystect [place]. IMPRESSION: 1. No acute cardiopulmonary disease. Reviewed, dictated and finalized at location [facility]. E SOLUTIONS CONSULTANT
--- NOTE | 2023-09-13 14:33 | ECG_ITS ---
Measurements Intervals [place] Rate: 95 P: 43 AL: 139 QRS: 76 QRSD: 81 T: 38 QT: 328 QTc: 412 Interpretive Statements SINUS RHYTHM NO PREVIOUS ECG AVAILABLE FOR COMPARISON Electronically Signed On 09-13-2023 19:18:44 PRESCHOOL PROGRAM DIRECTOR by Leonor George M.D.
--- NOTE | 2023-09-13 14:47 | ED.SOB ---
HPI - SOB/Dyspnea General Chief Complaint: Shortness of Breath/Dyspnea Stated Complaint: SOB Time Seen by Provider: 09/13/23 14:36 Source: patient Mode of arrival: ambulatory Limitations: no limitations History of Present Illness HPI Narrative: Foot eczema past medical history asthma presents shortness of breath approximately 2 weeks duration. She was diagnosed with a viral pneumonia [facility] approximately 1 week ago. Not told of a viral specifically as tested negative for influenza and covid. She has been trying steroids and nebulized treatments and was also placed on antibiotic (unsure which, thought perhaps Keflex). Subjective leg swelling. She saw her PCP today who was concerned that it wasn't a viral pneumonia. She has had a cough and back pain. She receives infusions q2 weeks for Crohns. Usually a <1/2 PPD smoker but not since symptoms began. She has been feverish. She states her chest feels like there are bubbles in it. Is intermittently on steroids for Crohns; generally asthma is well controlled, hasn't required steroids in awhile. Usually just uses albuterol inhaler PRN for this. She has never required intubation for an asthma exacerbation but has utilized BiPAP previously Related Data Allergies Allergy/AdvReac Type Severity Reaction Status Date / Time Penicillins Allergy Unknown Rash Verified 09/13/23 14:36 morphine AdvReac Nausea and Verified 09/13/23 14:36 Vomiting PMFSH Past Medical History Medical History Abdominal wall cellulitis 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 Anemia Anxiety Asthma Crohn's disease of small intestine with complication GERD with esophagitis Hepatic steatosis History of small bowel obstruction Has been treated conservatively and also required surgical intervention x 2 with adhesiolysis. Hypertension Menorrhagia Morbid obesity Nephrolithiasis Partial obstruction of small intestine Partial small bowel obstruction Port-A-Cath in place History of right sided Port-A-Cath with subsequent removal placed 2011 removed proximally 2017. Placed due to poor vascular access. Tobacco abuse Surgical History Surgical History History of appendectomy Appendix removed during 2nd exploratory laparotomy. History of cholecystectomy History of exploratory laparotomy Has had what sounds like an exploratory laparotomy with adhesiolysis x 2 in [facility]. History of tonsillectomy Status post laparoscopic hernia repair With mesh. Family History Family History Father Diabetes mellitus Mother Hypertension Sibling No problems noted. Other Crohn's colitis Social History Social History Social History: Her in her have been together for many years but they got in 2020. They have 1 cat. They have no children. 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 She had drinks alcohol infrequently and only in moderation. She uses marijuana daily. Surrogate decision maker: Dorota Clayton () Code status: Full code. Smoking packs per day: 0.2 Smoking cigarettes per day: 4.0 Years smoked: 16 Smoking pack-years: 3.20 Smoking status: Current every day smoker Tobacco type: cigarettes Second hand tobacco smoke exposure: Yes Smoking end date: 11/17/19 Alcohol intake: current Alcohol use details: 1-2 alcoholic beverages every 1-2 months. Substance use: current Substance use type: marijuana Other substance usage details: smokes marijauna every day Last use: 08/20/2022 Lack of Transportation: No Lack of Food: Never True Current Housing: I Have Housing Conc
[2023-09-13 15:00] LABS: Basophils Percent Auto 0.2 % (0.2-1.2); Eosinophils Percent Auto 0.1 % (0-4.4); Hematocrit 37.4 % (37.0-47.0); Immature Granulocyte Percent A 1.1 % (0-0.5); Lymphocytes Absolute Auto 1.75 K/mm3 (0.9-3.2); Lymphocytes Percent Auto 9.9 % (18.3-44.2); Mean Corpuscular HGB Conc 29.4 g/dl (32-36); Mean Corpuscular Hemoglobin 23.4 pg (26-34); Mean Corpuscular Volume 79.4 fl (80-100); Mean Platelet Volume 9.6 fl (7.4-10.4); Monocytes Absolute Auto 1.3 K/mm3 (0.1-0.6); Monocytes Percent Auto 7.4 % (2.6-8.5); Neutrophils Absolute Auto 14.4 K/mm3 (1.3-6.7); Neutrophils Percent Auto 81.3 % (45.5-73.1); Nucleated Red Blood Cells Perc 0.1 % (0.0-0.2); Platelet Count Result 399 k/mm3 (150-375); Red Blood Count 4.71 M/mm3 (4.2-5.4); Red Cell Distribution Width 17.2 % (11.5-14.5); White Blood Count 17.7 K/mm3 (4.5-10.0)
[2023-09-13 15:08] LABS: Alanine Aminotransferase 32 U/L (6-35); Albumin Level 4.2 g/dL (3.5-5.1); Alkaline Phosphatase 89 U/L (38-126); Anion Gap 2 mmol/L (8-16); Aspartate Amino Transferase 50 U/L (14-36); Bilirubin,Total 0.9 mg/dL (0.2-1.3); Blood Urea Nitrogen 11 mg/dL (7-17); Calcium 9.2 mg/dL (8.4-10.2); Carbon Dioxide 30 mmol/L (22-30); Chloride 103 mmol/L (98-107); Estimated CRCL calculation 126 ml/min; Estimated Glomerular Filt Rate > 60; Glucose 108 mg/dL (65-110); Sodium 135 mmol/L (137-145)
[2023-09-13] MEDS: ALBUTEROL SULFATE NEB 2.5 MG/3 ML INH INHALATION ×2 (15:16→16:35)
[2023-09-13] MEDS: IPRATROPIUM 0.5 MG/ALBUTEROL SULFATE 2.5 MG AMPUL.NEB 3 ML INHALATION (15:16)
[2023-09-13 15:22] LABS: Anisocytosis 1+ (NORMAL); Hypochromasia 1+ (NORMAL); Microcytosis 1+ (NORMAL); Platelet Estimate Adequate (Adequate); Schistocytes None Seen (NORMAL); Stomatocytes 2+ (NORMAL)
[2023-09-13 15:24] LABS: D Dimer 0.28 ug/mL (<0.48)
[2023-09-13] MEDS: predniSONE 20 MG TABLET 40 MG PO (15:30)
[2023-09-13 15:37] LABS: Influenza A QL RT-PCR Negative (Negative); Influenza B QL RT-PCR Negative (Negative); RSV RNA, RT-PCR Positive (Negative); SARS-CoV-2 RNA PCR Negative (Negative)
[2023-09-13] MEDS: MAGNESIUM SULF 1 GM/D5W 100 ML 1 GM/100 ML BAG IVPB (16:49)
== END 2023-09-13 19:46 | disposition home or self-care (01) ==
PROVIDERS: Emergency Medicine; Emergency Provider Student in an Organized Health Care Education/Training Program; PCP Family Medicine
DX: J22 Unspecified acute lower respiratory infection (principal); B97.4 Respiratory syncytial virus as the cause of diseases classified elsewhere; J45.901 Unspecified asthma with (acute) exacerbation; Z20.822 Contact with and (suspected) exposure to COVID-19; I10 Essential (primary) hypertension; J45.909 Unspecified asthma, uncomplicated; K50.90 Crohn's disease, unspecified, without complications; K21.00 Gastro-esophageal reflux disease with esophagitis, without bleeding; D64.9 Anemia, unspecified; E66.01 Morbid (severe) obesity due to excess calories; Z68.43 Body mass index [BMI] 50.0-59.9, adult; F17.210 Nicotine dependence, cigarettes, uncomplicated; Z87.01 Personal history of pneumonia (recurrent); Z90.49 Acquired absence of other specified parts of digestive tract
CPT/HCPCS: 36415; 71046; 80053; 83735; 85025; 85380; 87637; 93005; 94640; 96365; 99284; J3475; J7512

== ENCOUNTER 2023-09-17 12:25 | Emergency (ER) | payer OTHER, SELFPAY ==
[2023-09-17] VITALS (10 sets, daily range): BP systolic 134–170; BP diastolic 3–102; PULSE 86–123; RESP 20–28; TEMP 36.8–36.9; O2SAT 96–100
--- NOTE | ~2023-09-17 | XR_ITS ---
EXAMINATION: XR chest 2V DATE: 09/17/2023 12:38 INDICATION: Shortness of breath. Cough. TECHNIQUE: Frontal and lateral views of the chest were obtained. COMPARISON: Chest 2 views 09/13/2023, CT abdomen and pelvis 08/20/2022 FINDINGS: There is no pneumonia, pleural effusion, or pneumothorax. Cardiomegaly is noted. There are surgical clips in the abdomen. IMPRESSION: 1. Cardiomegaly. Reviewed, dictated and finalized at location A. [facility] IMPRESSION: 1. Cardiomegaly.
--- NOTE | 2023-09-17 12:33 | ED.GENADULT ---
HPI - General Adult General Chief complaint: Shortness of Breath/Dyspnea Stated complaint: ASTHMA EXACERBATION Time Seen by Provider: 09/17/23 12:27 History of Present Illness HPI narrative: Patient is a 43-year-old female who presents ER with shortness of breath. Has history of asthma. Diagnosed with RSV 3 days ago. She is currently on 40 mg of prednisone. She has lost her voice. She reports her breathing is worsened today. She has tried a nebulizer treatment without improvement. No chest pain. Cough is mildly productive. Related Data Allergies Allergy/AdvReac Type Severity Reaction Status Date / Time Penicillins Allergy Unknown Rash Verified 09/13/23 14:36 morphine AdvReac Nausea and Verified 09/13/23 14:36 Vomiting Review of Systems Review of Systems: All systems reviewed & are unremarkable except as noted in HPI and below Constitutional: Constitutional: Denies chills, Reports fatigue and Denies fever(s) ENT: Reports nasal congestion and Reports sore throat Cardiovascular: Cardiovascular: Reports no additional cardiovascular complaints Respiratory: Respiratory: Reports cough, Reports dyspnea and Reports wheezing Gastrointestinal: Gastrointestinal: Reports no additional gastrointestinal complaints Musculoskeletal: Musculoskeletal: Reports no additional musculoskeletal complaints [facility] Past Medical History Medical History Abdominal wall cellulitis 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 Anemia Anxiety Asthma Crohn's disease of small intestine with complication GERD with esophagitis Hepatic steatosis History of small bowel obstruction Has been treated conservatively and also required surgical intervention x 2 with adhesiolysis. Hypertension Menorrhagia Morbid obesity Nephrolithiasis Partial obstruction of small intestine Partial small bowel obstruction Port-A-Cath in place History of right sided Port-A-Cath with subsequent removal placed 2011 removed proximally 2017. Placed due to poor vascular access. Tobacco abuse Surgical History Surgical History History of appendectomy Appendix removed during 2nd exploratory laparotomy. History of cholecystectomy History of exploratory laparotomy Has had what sounds like an exploratory laparotomy with adhesiolysis x 2 in [facility]. History of tonsillectomy Status post laparoscopic hernia repair With mesh. Family History Family History Father Diabetes mellitus Mother Hypertension Sibling No problems noted. Other Crohn's colitis Social History Social History Social History: Her in her have been together for many years but they got in 2020. They have 1 cat. They have no children. 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 She had drinks alcohol infrequently and only in moderation. She uses marijuana daily. Surrogate decision maker: Dorota Clayton () Code status: Full code. Smoking packs per day: 0.2 Smoking cigarettes per day: 4.0 Years smoked: 16 Smoking pack-years: 3.20 Smoking status: Current every day smoker Tobacco type: cigarettes Second hand tobacco smoke exposure: Yes Smoking end date: 11/17/19 Alcohol intake: current Alcohol use details: 1-2 alcoholic beverages every 1-2 months. Substance use: current Substance use type: marijuana Other substance usage details: smokes marijauna every day Last use: 08/20/2022 Lack of Transportation: No Lack of Food: Never True Current Housing: I Have Housing Concerned About Future Housing: No Difficulty Paying Gas/Electric Bills: No Difficult
[2023-09-17] MEDS: IPRATROPIUM BR 0.02% INH SOLN 0.5 MG/2.5 ML VIAL 1.5 MG INHALATION (12:40)
[2023-09-17] MEDS: ALBUTEROL SULFATE NEB 2.5 MG/3 ML INH 15 MG INHALATION ×2 (12:40→14:39)
== END 2023-09-17 17:26 | disposition home or self-care (01) ==
PROVIDERS: Emergency Provider Emergency Medicine; PCP Family Medicine
DX: J20.5 Acute bronchitis due to respiratory syncytial virus (principal); I10 Essential (primary) hypertension; K50.90 Crohn's disease, unspecified, without complications; K21.00 Gastro-esophageal reflux disease with esophagitis, without bleeding; E66.01 Morbid (severe) obesity due to excess calories; Z68.43 Body mass index [BMI] 50.0-59.9, adult; Z86.2 Personal history of diseases of the blood and blood-forming organs and certain disorders involving the immune mechanism; Z87.442 Personal history of urinary calculi; Z87.891 Personal history of nicotine dependence; Z90.49 Acquired absence of other specified parts of digestive tract; I51.7 Cardiomegaly
CPT/HCPCS: 71046; 94640; 99283; 99284

== ENCOUNTER 2023-11-17 19:19 | Emergency (ER) | payer OTHER, SELFPAY ==
[2023-11-17 19:22] VITALS: BP 121/76; PULSE 96; RESP 20; TEMP 36.6; O2SAT 99
[2023-11-17 21:23] VITALS: BP 121/73; PULSE 89; RESP 20; TEMP 36.8; O2SAT 99
[2023-11-17] MEDS: ACETAMINOPHEN 500 MG TABLET 1000 MG PO (22:07)
[2023-11-17 22:23] LABS: Basophils Absolute Auto 0.1 K/mm3 (0.0-0.1); Basophils Percent Auto 0.6 % (0.2-1.2); Eosinophils Absolute Auto 0.1 K/mm3 (0-0.3); Eosinophils Percent Auto 1.1 % (0-4.4); Hemoglobin 10.9 g/dL (12.0-15.0); Immature Granulocyte Absolute 0.03 K/mm3 (0.00-0.031); Immature Granulocyte Percent A 0.3 % (0-0.5); Lymphocytes Percent Auto 28.2 % (18.3-44.2); Mean Corpuscular HGB Conc 28.7 g/dl (32-36); Mean Corpuscular Hemoglobin 22.2 pg (26-34); Mean Corpuscular Volume 77.6 fl (80-100); Mean Platelet Volume 8.9 fl (7.4-10.4); Monocytes Absolute Auto 0.5 K/mm3 (0.1-0.6); Neutrophils Absolute Auto 5.7 K/mm3 (1.3-6.7); Neutrophils Percent Auto 63.8 % (45.5-73.1); Platelet Count Result 355 k/mm3 (150-375); Red Cell Distribution Width 19.7 % (11.5-14.5); White Blood Count 8.9 K/mm3 (4.5-10.0)
[2023-11-17 22:37] LABS: Alanine Aminotransferase 19 U/L (6-35); Albumin Level 4.3 g/dL (3.5-5.1); Alkaline Phosphatase 65 U/L (38-126); Anion Gap 8 mmol/L (4-12); Aspartate Amino Transferase 24 U/L (14-36); Bilirubin,Total 0.5 mg/dL (0.2-1.3); Blood Urea Nitrogen 10 mg/dL (7-17); CRP < 0.5 mg/dL (<1.0); Calcium 9.3 mg/dL (8.4-10.2); Carbon Dioxide 23 mmol/L (22-30); Chloride 105 mmol/L (98-107); Estimated CRCL calculation 116 ml/min; Estimated Glomerular Filt Rate > 60; Glucose 115 mg/dL (65-110); Potassium 3.5 mmol/L (3.4-5.0); Sodium 136 mmol/L (137-145)
[2023-11-17 22:42] LABS: Anisocytosis 1+; Hypochromasia 1+; Microcytosis 1+ (NORMAL); Platelet Estimate Adequate (Adequate); Schistocytes None Seen
--- NOTE | 2023-11-17 22:52 | ED.EXTPRO ---
HPI - Extremity Problem General Chief complaint: Extremity Problem,Nontraumatic Stated complaint: lower body swelling, bilateral Time Seen by Provider: 11/17/23 21:24 Source: patient Mode of arrival: ambulatory Limitations: no limitations History of Present Illness HPI Narrative: This is a 43-year-old female who presents to the ED with chief complaint of bilateral lower extremity pain, redness and swelling for the past week. Patient reports that this all started after a visit for a pedicure. Patient reports that he is an ex swelling or her scan and since then she has had increasing swelling to the lower extremities. She also reports some pain to the posterior right thigh but no redness or swelling this area. States she has had cellulitis in the past and this feels similar. Reports she is immunosuppressed with by weekly Humira. Endorses chills but no recorded fevers. Denies nausea, vomiting, abdominal pain, numbness, weakness, shortness of breath, chest pain. Related Data Allergies Allergy/AdvReac Type Severity Reaction Status Date / Time Penicillins Allergy Unknown Rash Verified 11/17/23 22:09 morphine AdvReac Nausea and Verified 11/17/23 22:09 Vomiting Review of Systems Review of Systems: All systems as dictated in HPI [facility] Past Medical History Medical History Abdominal wall cellulitis 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 Anemia Anxiety Asthma Crohn's disease of small intestine with complication GERD with esophagitis Hepatic steatosis History of small bowel obstruction Has been treated conservatively and also required surgical intervention x 2 with adhesiolysis. Hypertension Menorrhagia Morbid obesity Nephrolithiasis Partial obstruction of small intestine Partial small bowel obstruction Port-A-Cath in place History of right sided Port-A-Cath with subsequent removal placed 2011 removed proximally 2017. Placed due to poor vascular access. Tobacco abuse Surgical History Surgical History History of appendectomy Appendix removed during 2nd exploratory laparotomy. History of cholecystectomy History of exploratory laparotomy Has had what sounds like an exploratory laparotomy with adhesiolysis x 2 in [facility]. History of tonsillectomy Status post laparoscopic hernia repair With mesh. Family History Family History Father Diabetes mellitus Mother Hypertension Sibling No problems noted. Other Crohn's colitis Social History Social History Social History: Her in her have been together for many years but they got in 2020. They have 1 cat. They have no children. 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 She had drinks alcohol infrequently and only in moderation. She uses marijuana daily. Surrogate decision maker: Dorota Clayton () Code status: Full code. Smoking packs per day: 0.2 Smoking cigarettes per day: 4.0 Years smoked: 16 Smoking pack-years: 3.20 Smoking status: Current every day smoker Tobacco type: cigarettes Second hand tobacco smoke exposure: Yes Smoking end date: 11/17/19 Alcohol intake: current Alcohol use details: 1-2 alcoholic beverages every 1-2 months. Substance use: current Substance use type: marijuana Other substance usage details: smokes marijauna every day Last use: 08/20/2022 Lack of Transportation: No Lack of Food: Never True Current Housing: I Have Housing Concerned About Future Housing: No Difficulty Paying Gas/Electric Bills: No Difficulty Paying for Meds: No Currently Unemployed: No Education: Grade Sc
[2023-11-17 22:55] LABS: D Dimer 0.42 ug/mL (<0.48)
[2023-11-17] MEDS: ceFAZolin 1 GM/NS 50 ML 1 GM/50 ML BAG IVPB (23:02)
[2023-11-17 23:38] VITALS: BP 117/68; PULSE 85; RESP 16; O2SAT 100
== END 2023-11-17 23:38 | disposition home or self-care (01) ==
PROVIDERS: Emergency Provider Physician Assistant; PCP Family Medicine
DX: L03.116 Cellulitis of left lower limb (principal); L03.115 Cellulitis of right lower limb; D64.9 Anemia, unspecified; J45.909 Unspecified asthma, uncomplicated; I10 Essential (primary) hypertension; E66.01 Morbid (severe) obesity due to excess calories; Z68.43 Body mass index [BMI] 50.0-59.9, adult; K21.00 Gastro-esophageal reflux disease with esophagitis, without bleeding; K50.90 Crohn's disease, unspecified, without complications; Z87.891 Personal history of nicotine dependence; Z90.49 Acquired absence of other specified parts of digestive tract
CPT/HCPCS: 36415; 80053; 85025; 85380; 86140; 96365; 99284; A9270; J0690

== ENCOUNTER 2023-11-22 02:23 | Inpatient (IN) | payer OTHER, SELFPAY ==
[2023-11-22] VITALS (7 sets, daily range): BP systolic 112–158; BP diastolic 55–89; PULSE 70–89; RESP 12–22; TEMP 36.2–36.6; O2SAT 95–100; BMI 51.5
--- NOTE | ~2023-11-22 | XR_ITS ---
EXAMINATION: XR small bowel follow through DATE: 11/22/2023 21:03 INDICATION: Crohn's disease with partial small bowel obstruction TECHNIQUE: [facility] radiograph(s) of the abdomen was/were obtained. Oral contrast was administered, and sequential radiographs of the abdomen were obtained over 6.5 hours. COMPARISON: None. FINDINGS: [facility] image demonstrates some residual excreted contrast in the bilateral renal collecting systems re lated to an earlier contrast-enhanced CT. Cholecystectomy clips at right upper quadrant. Contrast ext ends into multiple dilated loops of small bowel in the upper abdomen. Contrast reaches a loop of kale l in the right abdomen by 30 minutes which demonstrates some mucosal fold thickening. There is no josé miguel dent progression beyond this point over the course of the following 5 1/2 hours. Visualized lung base s are clear. Heart size is normal. IMPRESSION: 1. Relatively normal progression of oral contrast through a few dilated loops of small bowel, within 30 minutes reaching a segment of nondilated small bowel with mucosal fold thickening the right lower quadrant with no further advancement of contrast from the following 5 1/2 hours consistent with eithe r high-grade obstruction or combination of obstruction and ileus. Reviewed, dictated and finalized at location A. IMPRESSION: 1. Relatively normal progression of oral contrast through a few dilated loops o f small bowel, within 30 minutes reaching a segment of nondilated small bowel w ith mucosal fold thickening the right lower quadrant with no further advancemen t of contrast from the following 5 1/2 hours consistent with either high-grade obstruction or combination of obstruction and ileus.
--- NOTE | ~2023-11-22 | XR_ITS ---
EXAMINATION: XR abdomen/kub 1V DATE: 11/23/2023 10:54 INDICATION: Crohn disease. Partial small bowel obstruction. TECHNIQUE: A supine view of the abdomen on 2 radiographs was obtained. COMPARISON: Small bowel series 11/22/2023, CT abdomen and pelvis 11/22/2023 FINDINGS: There is oral contrast in the stomach and small and large bowel. There are multiple dilated loops of small bowel. IMPRESSION: 1. Dilated small bowel, consistent with partial obstruction. Reviewed, dictated and finalized at location A.
--- NOTE | ~2023-11-22 | CT_ITS ---
CT of the Abdomen and Pelvis: Indication: Abdominal pain, Crohn's disease Technique: 2.5 mm axial scans were obtained through the abdomen and pelvis following intravenous adm inistration of 100 cc of Omnipaque 350. Dose reduction technique was used on this scan by utilizing a utomated exposure control and iterative reconstruction technique. The dose-length product (DLP) was 1 524.50 mGy-cm. COMPARISON: 08/20/2022 Findings: Scans through the lung bases are unremarkable. The liver, spleen, pancreas, right adrenal gland and kidneys are within normal limits. Cholecystectom y clips are present. Stable small left adrenal nodule. No evidence of aortic aneurysm. No lymphadeno yasmeen. There is extensive wall thickening of the mid to distal ileum with mild distention of jejunal and ile al small bowel loops. No high-grade bowel obstruction seen. Large bowel unremarkable. No abscess or f ree air. Images through the pelvis were performed. Urinary bladder unremarkable. Probable uterine fibroid, unc hanged. No ascites. Impression: Wall thickening of mid to distal ileum with mild distention of jejunal and ileal small bowel loops. F indings suggest Crohn's disease and possible chronic low-grade small bowel obstruction, with an overa ll appearance very similar to prior exam. No high-grade small bowel obstruction evident. Stable uterine fibroid. Stable small left adrenal nodule. Reviewed, dictated and finalized at [facility]. Impression: Wall thickening of mid to distal ileum with mild distention of jejunal and ilea l small bowel loops. Findings suggest Crohn's disease and possible chronic low- grade small bowel obstruction, with an overall appearance very similar to prior exam. No high-grade small bowel obstruction evident. Stable uterine fibroid. Stable small left adrenal nodule.
--- NOTE | ~2023-11-22 | XR_ITS ---
EXAMINATION: XR abdomen/kub 1V DATE: 11/24/2023 09:13 INDICATION: Small bowel obstruction. TECHNIQUE: A supine view of the abdomen on 2 radiographs was obtained. COMPARISON: Abdomen radiograph 11/23/2023 FINDINGS: There are no gas-filled dilated loops of bowel. There is oral contrast in the colon, which is normal in caliber. Surgical clips in the right upper quadrant are likely from cholecystectomy. IMPRESSION: 1. Nonobstructive bowel gas pattern. Reviewed, dictated and finalized at location A.
[2023-11-22 03:31] LABS: Basophils Absolute Auto 0.1 K/mm3 (0.0-0.1); Basophils Percent Auto 0.5 % (0.2-1.2); Eosinophils Percent Auto 0.3 % (0-4.4); Hematocrit 39.5 % (37.0-47.0); Immature Granulocyte Absolute 0.03 K/mm3 (0.00-0.031); Immature Granulocyte Percent A 0.3 % (0-0.5); Lymphocytes Absolute Auto 2.03 K/mm3 (0.9-3.2); Lymphocytes Percent Auto 19.5 % (18.3-44.2); Mean Corpuscular HGB Conc 30.4 g/dl (32-36); Mean Corpuscular Hemoglobin 22.9 pg (26-34); Mean Corpuscular Volume 75.4 fl (80-100); Mean Platelet Volume 9.1 fl (7.4-10.4); Monocytes Absolute Auto 0.5 K/mm3 (0.1-0.6); Monocytes Percent Auto 4.4 % (2.6-8.5); Neutrophils Absolute Auto 7.8 K/mm3 (1.3-6.7); Platelet Count Result 417 k/mm3 (150-375); Red Blood Count 5.24 M/mm3 (4.2-5.4); Red Cell Distribution Width 19.9 % (11.5-14.5); White Blood Count 10.4 K/mm3 (4.5-10.0)
[2023-11-22 03:38] LABS: Bacteria Urine None Seen /hpf; Non Pathogenic Casts 0-2; Squamous Epithelial Cell Urine Occasional /hpf (Few); WBC Urine 0-5 /hpf (0-3)
[2023-11-22 03:41] LABS: Alanine Aminotransferase 21 U/L (6-35); Albumin Level 4.8 g/dL (3.5-5.1); Alkaline Phosphatase 80 U/L (38-126); Anion Gap 9 mmol/L (4-12); Aspartate Amino Transferase 29 U/L (14-36); Bilirubin,Total 0.7 mg/dL (0.2-1.3); Blood Urea Nitrogen 12 mg/dL (7-17); Calcium 10.1 mg/dL (8.4-10.2); Carbon Dioxide 28 mmol/L (22-30); Chloride 105 mmol/L (98-107); Estimated CRCL calculation 126 ml/min; Estimated Glomerular Filt Rate > 60; Glucose 136 mg/dL (65-110); Lipase 59 U/L (23-300); Potassium 3.8 mmol/L (3.4-5.0); Sodium 142 mmol/L (137-145)
[2023-11-22 03:44] LABS: Appearance Urine Clear (Clear); Bilirubin Urine Negative (Negative); Blood Urine 1+ (Negative); Color Urine Yellow (Yellow); Glucose Urine UA Negative (Negative); Ketones Urine Negative (Negative); Leukocyte Esterase Ur Negative LEU/UL (Negative); Nitrate Urine Negative (Negative); Protein Urine 1+ mg/dL (Negative); Specific Grav Ur 1.018 (1.001-1.035); pH Urine 8.5 (5.0-9.0)
[2023-11-22 03:52] LABS: Add Urine Microscopic? YES
[2023-11-22 04:09] LABS: Amphetamine Screen Urine Negative (Negative); Barbiturate Screen Urine Negative (Negative); Benzodiazepines Screen Urine Negative (Negative); Cannabinoid Screen Urine Positive (Negative); Cocaine Screen Urine Negative (Negative); Methadone Screen Urine Negative (Negative); Opiate Screen Urine Negative (Negative); Phencyclidine Screen Urine Negative (Negative)
[2023-11-22] MEDS: SODIUM CHLORIDE 0.9% IV 2,000 ML 999 ML IV CONT (04:14)
[2023-11-22] MEDS: ONDANSETRON INJ 4 MG/2 ML VIAL IV PUSH (04:14)
[2023-11-22] MEDS: HALOPERIDOL LACTATE 5 MG/ML VIAL IM ×2 (04:15→16:55)
[2023-11-22] MEDS: FAMOTIDINE 20 MG/2 ML VIAL IV PUSH (04:15)
[2023-11-22] MEDS: PROCHLORPERAZINE EDISYLATE 10 MG/2 ML VIAL IV PUSH (05:08)
[2023-11-22] MEDS: diphenhydrAMINE HCl INJ 50 MG/ML VIAL 25 MG IV PUSH (05:08)
--- NOTE | 2023-11-22 06:25 | ED.GENADULT ---
HPI - General Adult General Chief complaint: Abdominal Pain Stated complaint: Chrons flare Time Seen by Provider: 11/22/23 03:10 History of Present Illness HPI narrative: This is a 43-year-old female with history of Crohn's disease and daily marijuana use presenting with abdominal pain, nausea and vomiting. Symptoms started yesterday morning. They are not associated with fevers chills chest pain difficulty breathing or urinary symptoms. Patient relates this type of pain to Crohn's flares that she has had in the past. Patient has been admitted to the hospital multiple times for this in the past. Related Data Allergies Allergy/AdvReac Type Severity Reaction Status Date / Time Penicillins Allergy Unknown Rash Verified 11/17/23 22:09 morphine AdvReac Nausea and Verified 11/17/23 22:09 Vomiting PMFSH Past Medical History Medical History Abdominal wall cellulitis 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 Anemia Anxiety Asthma Crohn's disease of small intestine with complication GERD with esophagitis Hepatic steatosis History of small bowel obstruction Has been treated conservatively and also required surgical intervention x 2 with adhesiolysis. Hypertension Menorrhagia Morbid obesity Nephrolithiasis Partial obstruction of small intestine Partial small bowel obstruction Port-A-Cath in place History of right sided Port-A-Cath with subsequent removal placed 2011 removed proximally 2016. Placed due to poor vascular access. Tobacco abuse Surgical History Surgical History History of appendectomy Appendix removed during 2nd exploratory laparotomy. History of cholecystectomy History of exploratory laparotomy Has had what sounds like an exploratory laparotomy with adhesiolysis x 2 in [facility]. History of tonsillectomy Status post laparoscopic hernia repair With mesh. Family History Family History Father Diabetes mellitus Mother Hypertension Sibling No problems noted. Other Crohn's colitis Social History Social History Social History: Her in her have been together for many years but they got in 2020. They have 1 cat. They have no children. 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 She had drinks alcohol infrequently and only in moderation. She uses marijuana daily. Surrogate decision maker: Dorota Clayton () Code status: Full code. Smoking packs per day: 0.2 Smoking cigarettes per day: 4.0 Years smoked: 16 Smoking pack-years: 3.20 Smoking status: Current every day smoker Tobacco type: cigarettes Second hand tobacco smoke exposure: Yes Smoking end date: 11/17/19 Alcohol intake: current Alcohol use details: 1-2 alcoholic beverages every 1-2 months. Substance use: current Substance use type: marijuana Other substance usage details: smokes marijauna every day Last use: 08/20/2022 Lack of Transportation: No Lack of Food: Never True Current Housing: I Have Housing Concerned About Future Housing: No Difficulty Paying Gas/Electric Bills: No Difficulty Paying for Meds: No Currently Unemployed: No Education: Grade School Difficulty w/ Childcare or Family Care: No Living arrangements: with family Additional living arrangements comments: Lives in [place] with her fiance. Recently moved to the area from [facility]. Occupation/Education: other Additional occupation/education comments: Unemployed. Gender identity (if verbalized by the patient): Female Spiritual care concerns: No Exam Narrative: APPEARANCE: Patient is laying o
[2023-11-22] MEDS: HYDROmorphone HCL INJ (*CRX) 1 MG/ML SYR 0.5 MG IV PUSH (06:43)
[2023-11-22] MEDS: methylPREDNISolone SOD SUCC 40 MG VIAL IV PUSH ×2 (06:46→16:56)
--- NOTE | 2023-11-22 08:27 | PM.IMHP ---
H&P: HPI History of Present Illness Date/Time: 11/22/23 08:27 Chief Complaint: abdominal pain, nausea, vomiting Narrative: This is a 43 year old female with a significant past medical history of Crohn's, anemia, anxiety, asthma, GERD, hepatic steatosis, HTN, morbid obesity, current smoker, marijuana abuse who presents to the hospital with chief complaint of nausea, vomiting, and abdominal pain. Patient states that her symptoms started yesterday and she states that it is similar to past Crohn's flair ups. She denies any fever, chills, vomiting, chest pain, shortness of breath. She endorses nausea, abdominal pain, and diarrhea. Work up in the hospital included an abdomen/pelvis CT which revealed wall thickening of mid distal ileum with mild distention of jejunal and ileal small bowel loops suggestive of Crohn's disease, stable uterine fibroids, small left adrenal nodule. Initial labs revealed a WBC 10.4, BG 136, otherwise unremarkable. UA shown 1+ protein, 1+ urine blood, 3-5 urine RBC's, otherwise was unremarkable. Urine drug screen positive for Cannabinoids. She was given 2L NS, GI cocktail, dilaudid, and solu-medrol 40 mg while in the ER. She was started on maintenance IVF. Review of Systems Review of Systems: All systems reviewed & are unremarkable except as noted in HPI and below Constitutional: Constitutional: Reports as per HPI and Reports no additional constitutional complaints Eyes: Eyes: Reports as per HPI and Reports no additional eye complaints ENT: Reports system reviewed and no additional complaints, except as documented and Reports as per HPI Cardiovascular: Cardiovascular: Reports as per HPI and Reports no additional cardiovascular complaints Respiratory: Respiratory: Reports as per HPI and Reports no additional respiratory complaints Gastrointestinal: Gastrointestinal: Reports as per HPI Genitourinary: Genitourinary: Reports no additional female genitourinary complaints and Reports as per HPI Musculoskeletal: Musculoskeletal: Reports no additional musculoskeletal complaints and Reports as per HPI Integumentary/Breasts: Skin/Breast: Reports system reviewed and no additional complaints, except as docu and Reports as per HPI Neurologic: Reports system reviewed and no additional complaints, except as documented and Reports as per HPI Psychiatric: Psychiatric: Reports no additional psychiatric complaints and Reports as per HPI [facility] Past Medical History Medical History Abdominal wall cellulitis 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 Anemia Anxiety Asthma Crohn's disease of small intestine with complication GERD with esophagitis Hepatic steatosis History of small bowel obstruction Has been treated conservatively and also required surgical intervention x 2 with adhesiolysis. Hypertension Menorrhagia Morbid obesity Nephrolithiasis Partial obstruction of small intestine Partial small bowel obstruction Port-A-Cath in place History of right sided Port-A-Cath with subsequent removal placed 2011 removed proximally 2016. Placed due to poor vascular access. Tobacco abuse Surgical History Surgical History History of appendectomy Appendix removed during 2nd exploratory laparotomy. History of cholecystectomy History of exploratory laparotomy Has had what sounds like an exploratory laparotomy with adhesiolysis x 2 in [facility]. History of tonsillectomy Status post laparoscopic hernia repair With mesh. Family History Family History Father Diabetes mellitus Mother Hypertension Sibling No problems noted. Other Crohn's colitis Social History Social History Social History: Her in her have been together
[2023-11-22] MEDS: PANTOPRAZOLE 40 MG TABLET PO (09:33)
[2023-11-22] MEDS: ACETAMINOPHEN 325 MG TABLET 650 MG PO ×2 (09:33→21:09)
[2023-11-22] MEDS: SODIUM CHLORIDE 0.9% IV 1,000 ML 100 ML IV CONT (09:33)
--- NOTE | 2023-11-22 09:52 | ADMGEN ---
This patient, Roma Clayton, was admitted to [facility] Surg Room 313-01. Patient/family oriented to hospital policies and general routines including ID bracelet, bed and alarms, visiting hours, pain management, procedures, bathroom and other care routines, personal items, smoking policy, room service/diet, and visiting hours. Information on how to activate the Rapid Response Team has been discussed. Patient/Family are encouraged to report perceived risks to care and to ask questions if they do not understand what they are told or what they should do.
--- NOTE | 2023-11-22 11:41 | WPDGICN ---
Assessment and Plan Assessment and plan (1) Crohn disease: Code(s): K50.90 - Crohn's disease, unspecified, without complications Status: Chronic Assessment and Plan: -history of small-bowel Crohn's disease diagnosed around 7-8 years ago. She has been on Humira 40 mg every 2 weeks for the last 3 years. She is admitted for Crohn's disease exacerbation with possible low grade partial small bowel obstruction. She was admitted around 3 months ago at [facility] for exacerbation as well. She was following with Dr. Marks and will need to establish with new GI provider. Likely Humira is no longer working due to the frequent exacerbations and continued inflammation seen on imaging. -CT of the abdomen and pelvis noted have wall thickening of the mid to distal ileum with mild distention of jejunal and ileal small bowel loops findings suggestive of Crohn's disease and possible chronic low-grade small-bowel obstruction, appears similar to prior exam which appears that they are comparing to 2022. -wbc minimally elevated at 10.7 and normal H&H -was placed on Keflex around 5 days ago due to cellulitis. -Start Solu-Medrol 40 mg IV every 12 hours -C diff, stool culture, stool calprotectin to be completed -Supportive tx with pain control and fluids -will need close f/u outpatient with colonoscopy and changing biologic therapy. (2) Partial small bowel obstruction: Code(s): K56.600 - Partial intestinal obstruction, unspecified as to cause Status: Acute Assessment and Plan: -Possible chronic low grade SBO, this is likely due to crohn's diesese-could be due to active inflammation or stricture from previous inflammation -Treat per crohns flair as above -has nausea but no vomiting-last BM yesterday-not passing gas -abd is soft but tender. -Will get small bowel xray -refuses NG at this time, discussed if vomiting starts or pain worsens, she will need an NG-she v/u consider surgical consult if needed (3) Nausea & vomiting: Code(s): R11.2 - Nausea with vomiting, unspecified Status: Inactive Assessment and Plan: -Still nausea but no vomiting -Likely due to crohn's flair and possible low grade small bowel obstruction -supportive tx with Zofran per hospitalist -refuses NG at this time (4) GERD (gastroesophageal reflux disease): Code(s): K21.9 - Gastro-esophageal reflux disease without esophagitis Status: Chronic Assessment and Plan: Symptomatic daily, not on any PPI or h2 blockers EGD 6 months ago, normal?? Start pantoprazole 40 mg IV and continue outpatient PO EGD outpatient with colonoscopy (5) Marijuana use: Code(s): F12.90 - Cannabis use, unspecified, uncomplicated Status: Acute (6) Morbid obesity: Code(s): E66.01 - Morbid (severe) obesity due to excess calories Status: Chronic GI Consult Note Consult date/time: 11/22/23 11:41 Reason for consult: Crohn's disease HPI: Roma Clayton is a 43 year old female presented to [facility] ER for worsening abdominal pain, nausea, vomiting and worsening diarrhea that started 1 day prior. Her is at bedside and helping with HPI. She has a past medical history of Crohn's disease of the small intestine and was previously following with Dr. Marks but he is closing his practice and was told to find new GI. She has only been maintained on Humira 40 mg every 2 weeks and has been on no previous biologics. She has a history of a small-bowel resection due to hernia incarceration and has had 2 pelvic laparoscopies with lysis of adhesions. Never has needed bowel resection due to crohns disease. She was admitted around 3 months ago at [facility] for Crohn's disease flare up and states she was doing fine until 1 day prior to admission. She states she had an EGD and colonoscopy around 6 months ago and was told everything was normal. She also states she recently had a capsule endoscopy du
[2023-11-22] MEDS: amLODIPine BESYLATE 5 MG TABLET PO (16:52)
[2023-11-22 16:54] LABS: CRP < 0.5 mg/dL (<1.0)
[2023-11-22 17:15] LABS: Erythrocyte Sedimentation Rate 28 mm/hr (0-20)
[2023-11-22 17:32] LABS: Hepatitis B Surface Antigen Negative (Negative)
[2023-11-22 17:34] LABS: Hepatitis B Surface Antigen Negative (Negative)
[2023-11-22 17:38] LABS: HAV RESULT Negative (Negative); Hepatitis B Core IgM Result Negative (Negative)
[2023-11-22 18:08] LABS: Hepatitis B Surface Anti Res Positive
[2023-11-22 18:18] LABS: Hepatitis C Virus Antibody Reactive (Negative)
[2023-11-22] MEDS: FAMOTIDINE 20 MG TABLET PO (21:50)
[2023-11-23] MEDS: HALOPERIDOL LACTATE 5 MG/ML VIAL IM ×2 (02:27→08:54)
[2023-11-23 05:07] VITALS: BP 134/86; PULSE 98; RESP 12; TEMP 36.1; O2SAT 96
[2023-11-23] MEDS: methylPREDNISolone SOD SUCC 40 MG VIAL IV PUSH ×2 (05:24→18:23)
[2023-11-23] MEDS: ACETAMINOPHEN 325 MG TABLET 650 MG PO (05:26)
[2023-11-23] MEDS: amLODIPine BESYLATE 5 MG TABLET PO (08:54)
[2023-11-23] MEDS: FAMOTIDINE 20 MG TABLET PO (08:54)
[2023-11-23] MEDS: hydroCHLOROthiazide 25 MG TABLET PO (08:55)
--- NOTE | 2023-11-23 09:53 | P.PNIM_ITS ---
Progress Note: A&P Assessment and Plan (1) Small bowel obstruction: Code(s): K56.609 - Unspecified intestinal obstruction, unspecified as to partial versus complete obstruction Status: Acute Assessment and Plan: 11/23/23: * CT of the abdomen revealed wall thickening of mid to distal ileum with mild distension Junel an ileal small bowel loops suggestive Crohn's disease possible chronic low-grade small-bowel obstruction, stable uterine fibroids, stable small left adrenal nodule * upper GI and small bowel x-ray showed normal progression of oral contrast through a few dilated loops of small bowel, within 30 minutes reaching a segment of nondilated small bowel with mucosal fold thickening the right quadrant with no further advancement of contrast from the following 5-1/2 hours consistent with either a high-grade obstruction are combination of obstruction and ileus. * KUB today showed dilated small bowel, consistent with partial obstruction * general surgery was consulted * GI following (2) Cannabinoid hyperemesis syndrome: Code(s): R11.2 - Nausea with vomiting, unspecified; F12.90 - Cannabis use, unspecified, uncomplicated Status: Acute Assessment and Plan: 11/22/23: * Patient received a GI cocktail while in the ED * Haldol ordered for gastroparesis * Will give a one time dose of Pepcid IV and then continue with po Pepcid tomorrow. * Continue maintenance IV fluids * Patient received 2 L saline in the ED * Currently NPO awaiting GI consult * Urine drug screen positive for cannabinoids 11/23/23: * Antiemetic switched to Compazine today * continue maintenance fluids with D5 NS at 100 mil per hours * GI following (3) Crohn disease: Code(s): K50.90 - Crohn's disease, unspecified, without complications Status: Chronic Assessment and Plan: 11/22/23: * Continue Prednisone * Patient takes Humira every 2 weeks * GI was consulted. * CT of the abdomen revealed wall thickening of mid to distal ileum with mild distension Junel an ileal small bowel loops suggestive Crohn's disease possible chronic low-grade small-bowel obstruction, stable uterine fibroids, stable small left adrenal nodule. 11/23/23: * continue prednisone * upper GI and small bowel x-ray showed normal progression of oral contrast through a few dilated loops of small bowel, within 30 minutes reaching a segment of nondilated small bowel with mucosal fold thickening the right quadrant with no further advancement of contrast from the following 5-1/2 hours consistent with either a high-grade obstruction are combination of obstruction and ileus. * KUB today showed dilated small bowel, consistent with partial obstruction * general surgery was consulted * GI following (4) Hypertension: Code(s): I10 - Essential (primary) hypertension Status: Chronic Assessment and Plan: 11/22/23: * Blood pressure ranging 134/77-158/89 * Will restart home medication 11/23/23: * no change to current treatment plan (5) GERD (gastroesophageal reflux disease): Code(s): K21.9 - Gastro-esophageal reflux disease without esophagitis Status: Chronic Assessment and Plan: 11/22/23: * start pepcid 11/23/23: * patient changed over to Protonix b.i.d. per GI (6) Morbid obesity: Code(s): E66.01 - Morbid (severe) obesity due to excess calories Status: Chronic Assessment and Plan: 11/22/23: * BMI 51.6, 136.36 kg * Diet, exercise, and lifestyle changes 11/23/23: * no change to current treatment plan T
--- NOTE | 2023-11-23 09:53 | PM.IMPN ---
Progress Note: A&P Assessment and Plan (1) Small bowel obstruction: Code(s): K56.609 - Unspecified intestinal obstruction, unspecified as to partial versus complete obstruction Status: Acute Assessment and Plan: 11/23/23: CT of the abdomen revealed wall thickening of mid to distal ileum with mild distension Junel an ileal small bowel loops suggestive Crohn's disease possible chronic low-grade small-bowel obstruction, stable uterine fibroids, stable small left adrenal nodule upper GI and small bowel x-ray showed normal progression of oral contrast through a few dilated loops of small bowel, within 30 minutes reaching a segment of nondilated small bowel with mucosal fold thickening the right quadrant with no further advancement of contrast from the following 5-1/2 hours consistent with either a high-grade obstruction are combination of obstruction and ileus. KUB today showed dilated small bowel, consistent with partial obstruction general surgery was consulted GI following (2) Cannabinoid hyperemesis syndrome: Code(s): R11.2 - Nausea with vomiting, unspecified; F12.90 - Cannabis use, unspecified, uncomplicated Status: Acute Assessment and Plan: 11/22/23: Patient received a GI cocktail while in the ED Haldol ordered for gastroparesis Will give a one time dose of Pepcid IV and then continue with po Pepcid tomorrow. Continue maintenance IV fluids Patient received 2 L saline in the ED Currently NPO awaiting GI consult Urine drug screen positive for cannabinoids 11/23/23: Antiemetic switched to Compazine today continue maintenance fluids with D5 NS at 100 mil per hours GI following (3) Crohn disease: Code(s): K50.90 - Crohn's disease, unspecified, without complications Status: Chronic Assessment and Plan: 11/22/23: Continue Prednisone Patient takes Humira every 2 weeks GI was consulted. CT of the abdomen revealed wall thickening of mid to distal ileum with mild distension Junel an ileal small bowel loops suggestive Crohn's disease possible chronic low-grade small-bowel obstruction, stable uterine fibroids, stable small left adrenal nodule. 11/23/23: continue prednisone upper GI and small bowel x-ray showed normal progression of oral contrast through a few dilated loops of small bowel, within 30 minutes reaching a segment of nondilated small bowel with mucosal fold thickening the right quadrant with no further advancement of contrast from the following 5-1/2 hours consistent with either a high-grade obstruction are combination of obstruction and ileus. KUB today showed dilated small bowel, consistent with partial obstruction general surgery was consulted GI following (4) Hypertension: Code(s): I10 - Essential (primary) hypertension Status: Chronic Assessment and Plan: 11/22/23: Blood pressure ranging 134/77-158/89 Will restart home medication 11/23/23: no change to current treatment plan (5) GERD (gastroesophageal reflux disease): Code(s): K21.9 - Gastro-esophageal reflux disease without esophagitis Status: Chronic Assessment and Plan: 11/22/23: start pepcid 11/23/23: patient changed over to Protonix b.i.d. per GI (6) Morbid obesity: Code(s): E66.01 - Morbid (severe) obesity due to excess calories Status: Chronic Assessment and Plan: 11/22/23: BMI 51.6, 136.36 kg Diet, exercise, and lifestyle changes 11/23/23: no change to current treatment plan Time Spent With Patient Time with patient: 25 - 35 minutes Subjective Date/time seen: 11/23/23 09:53 Interval history: 11/22/23 This is a 43 year old female with a significant past medical history of Crohn's, anemia, anxiety, asthma, GERD, hepatic steatosis, HTN, morbid obesity, current smoker, marijuana abuse who presents to the hospital with chief complaint of nausea, vomiting, and abdominal pain. Patient states that her symptoms start
--- NOTE | 2023-11-23 11:16 | PM.CNGS ---
Assessment and Plan Assessment and plan (1) Small bowel obstruction: Code(s): K56.609 - Unspecified intestinal obstruction, unspecified as to partial versus complete obstruction Status: Acute Assessment and Plan: Small bowel obstruction secondary to Crohn's disease. SBFT yesterday showed contrast not progressing past some small bowel in the RLQ after about 6.5 hours, consistent with a high-grade obstruction. On her plain films this morning, it appears some contrast made it through to the colon, but it is still read with dilated small bowel consistent with a partial small bowel obstruction. On my exam, she is still distended and complaining of more abdominal pain and bloating since admission. She is still nauseous, but has not vomited since taking the oral contrast. She is starting to show signs of return of bowel function. I have recommend NG tube placement, bowel rest, and IV fluids. Hopefully, this will continue to improve with treatment of her Crohn's disease. Surgery would be reserved for perforation, high-grade obstruction or stricture without improvement with medical management. No peritoneal signs on exam and no findings of perforation on any imaging. Will continue to monitor with serial abdominal exams and imaging. (2) Crohn disease: Code(s): K50.90 - Crohn's disease, unspecified, without complications Status: Chronic Assessment and Plan: Patient taking Humira with her last dose last Monday. She has prednisone listed on her home med list, but only takes this when given by Dr. Marks for flare-ups. She denies taking any prednisone recently. She has been started on IV steroids with GI following. Hopefully this will improve with medical management of her Crohn's disease. (3) Morbid obesity: Code(s): E66.01 - Morbid (severe) obesity due to excess calories Status: Chronic Assessment and Plan: Increases risks of surgery (4) Marijuana use: Code(s): F12.90 - Cannabis use, unspecified, uncomplicated Status: Acute (5) GERD with esophagitis: Code(s): K21.0 - Gastro-esophageal reflux disease with esophagitis Status: Acute Plan I have discussed the patient's case and plan of care with Dr. Salcedo. Thank you for allowing us to see the patient in consultation and we will continue to follow along with you. History of Present Illness Consult details Consult date: 11/23/23 Reason for consult: other (Small bowel obstruction) Requesting physician: Bre Jones, FLORI Narrative: This is a 43-year-old morbidly obese woman with a history of Crohn's disease, who we have been asked to see in surgical consultation for a small-bowel obstruction. She has been seen by our service multiple times in the past for small bowel obstructions secondary to her Crohn's disease, which have improved with medical management. She was previously following Dr. Marks for GI and has been taking Humira every 2 weeks for the past 2-3 years. Recently she has had more issues and exacerbations. She was last hospitalized at [facility] in August of 2022 for a Crohn's exacerbation and reports being admitted to [facility] multiple times since then. She has been in the hospital at least every 6 months. Her last admission was in September. She denies having surgery during any of these hospitalizations. She was told that Dr. Marks is closing his practice and she would need to find a new GI, therefore she came to [facility] ER during this episode in hopes of finding a new quantometer operator. She reports waking up with abdominal pain 2 days ago. Reports pain is generalized across her entire abdomen. Her pain became worse throughout the day and she developed nausea and vomiting yesterday. Her symptoms were similar to previous episodes and she came into the ER for evaluation. [place] [id number], CRP normal. CT scan of abdomen and pelvis with IV contrast
[2023-11-23] MEDS: HYDROmorphone HCL INJ (*CRX) 1 MG/ML SYR 0.5 MG IV PUSH ×2 (11:51→20:22)
[2023-11-23] MEDS: ONDANSETRON INJ 4 MG/2 ML VIAL IV PUSH (11:51)
[2023-11-23] MEDS: DEXTROSE 5%/0.9% SOD CHL 1,000 ML 100 ML IV CONT (11:59)
[2023-11-23 13:04] LABS: Hematocrit 36.5 % (37.0-47.0); Hemoglobin 10.7 g/dL (12.0-15.0); Immature Granulocyte Absolute 0.07 K/mm3 (0.00-0.031); Immature Granulocyte Percent A 0.6 % (0-0.5); Lymphocytes Absolute Auto 0.63 K/mm3 (0.9-3.2); Lymphocytes Percent Auto 5.5 % (18.3-44.2); Mean Corpuscular HGB Conc 29.3 g/dl (32-36); Mean Corpuscular Hemoglobin 22.3 pg (26-34); Mean Corpuscular Volume 76.2 fl (80-100); Mean Platelet Volume 9.6 fl (7.4-10.4); Monocytes Absolute Auto 0.3 K/mm3 (0.1-0.6); Monocytes Percent Auto 2.5 % (2.6-8.5); Neutrophils Absolute Auto 10.5 K/mm3 (1.3-6.7); Neutrophils Percent Auto 91.4 % (45.5-73.1); Platelet Count Result 392 k/mm3 (150-375); Red Blood Count 4.79 M/mm3 (4.2-5.4); Red Cell Distribution Width 18.7 % (11.5-14.5); White Blood Count 11.5 K/mm3 (4.5-10.0)
[2023-11-23 13:13] LABS: Alanine Aminotransferase 17 U/L (6-35); Alkaline Phosphatase 65 U/L (38-126); Anion Gap 7 mmol/L (4-12); Aspartate Amino Transferase 23 U/L (14-36); Bilirubin,Total 0.7 mg/dL (0.2-1.3); Blood Urea Nitrogen 17 mg/dL (7-17); Calcium 9.1 mg/dL (8.4-10.2); Carbon Dioxide 24 mmol/L (22-30); Chloride 106 mmol/L (98-107); Estimated CRCL calculation 145 ml/min; Estimated Glomerular Filt Rate > 60; Glucose 160 mg/dL (65-110); Potassium 3.5 mmol/L (3.4-5.0); Sodium 137 mmol/L (137-145)
[2023-11-23 13:30] LABS: Hypochromasia 1+; Platelet Estimate Increased (Adequate); Schistocytes None Seen
[2023-11-23 13:37] VITALS: BP 126/72; PULSE 63; RESP 18; TEMP 36.4; O2SAT 98
--- NOTE | 2023-11-23 15:36 | WPDGIPROGNO ---
Progress Note: A&P Assessment and Plan (1) Small bowel obstruction: Code(s): K56.609 - Unspecified intestinal obstruction, unspecified as to partial versus complete obstruction Status: Acute Assessment and Plan: surgery on board continue with bowel rest, iv steroids given crohn's (she is on humira at home but has been symptomatic- recommend to switch to another biologic after resolution of this episode) ngt recommended but she is reluctant (2) Crohn's disease of small intestine with complication: Code(s): K50.019 - Crohn's disease of small intestine with unspecified complications Status: Acute Assessment and Plan: medical management (3) Nausea and vomiting in adult: Code(s): R11.2 - Nausea with vomiting, unspecified Status: Acute Assessment and Plan: still with nausea bowel rest. (4) Morbid obesity: Code(s): E66.01 - Morbid (severe) obesity due to excess calories Status: Chronic (5) GERD with esophagitis: Code(s): K21.0 - Gastro-esophageal reflux disease with esophagitis Status: Acute Subjective Date/time seen: 11/23/23 15:36 Interval history: today more abdominal pain and nauseous, still no BM SBFT reviewed and surgery was called. Review of Systems Review of Systems: All systems reviewed & are unremarkable except as noted in HPI and below Exam Const: General: in distress mild (due to pain, tearful) and uncomfortable Nutritional Appearance: obese morbidly obese Orientation/consciousness: patient oriented x3 HENMT: Head: normocephalic Ears: hearing grossly normal bilaterally Eyes: General: appearance normal, both eyes and all related structures Pupils: Equal, round and reactive pupils present Neck: Neck: normal visual inspection Resp: Effort & Inspection: no respiratory distress Auscultation: clear to auscultation bilaterally Cardio: Rate: regular rate Rhythm: regular rhythm Heart sounds: S1 normal heart sound present and S2 normal heart sound present GI: Inspection: distended, Pannus present, obesity and scar (large midline scar, multiple port site scars) GI Palp: Yes Tenderness to palpation present (GI) (diffusely tender throughout), No Guarding due to palpation present (GI) and No Rebound tenderness present Auscultation: Hypoactive bowel sounds present Skin: General skin exam: normal color Neuro: General: moves all extremities and no focal motor deficits Speech: normal speech Extrem: General: normal to inspection and no edema Psych: Mental Status: mental status grossly normal Attitude: cooperative Insight: Good insight present (Psych) Judgement: Good judgement present (Psych) Objective Data Vital Signs Vital Signs: Vital Signs - 24 hr 11/22/23 21:04 11/23/23 05:07 11/23/23 08:00 Temperature 97.1 F L 97.0 F L Pulse Rate 72 98 Respiratory Rate 12 12 Blood Pressure 112/55 L 134/86 Pulse Oximetry 99 96 Oxygen Delivery Room Air 11/23/23 13:37 Temperature 97.6 F Pulse Rate 63 Respiratory Rate 18 Blood Pressure 126/72 Pulse Oximetry 98 Oxygen Delivery Intake/Output Intake/Output: Intake & Output 11/20/23 11/21/23 11/22/23 11/23/23 23:59 23:59 23:59 23:59 Intake Total 1999 Balance 1999 Meds/Results Medications: Active Medications Generic Name Dose Route Start Last Admin Trade Name Freq PRN Reason Stop Dose Admin Acetaminophen 650 mg 11/22/23 08:57 11/23/23 05:26 Acetaminophen 325 Mg Tablet PO 650 mg Q4H PRN Administration Mild Pain (1-3) or Fever Amlodipine Besylate 5 mg 11/22/23 16:30 11/23/23 08:54 Amlodipine Besylate 5 Mg Tablet PO 5 mg QAM PAULA Administration Famotidine 20 mg 11/23/23 21:00 Famotidine 20 Mg/2 Ml Vial IV PUSH Q12HR PAULA Hydrochlorothiazide 25 mg 11/23/23 09:00 11/23/23 08:55 Hydrochlorothiazide 25 Mg Tablet PO 25 mg DAILY PAULA Administration Hydromorphone HCl 0.5 mg 11/23/23 09:52
[2023-11-23 18:07] LABS: Toxigenic C. Diff NEGATIVE (NEGATIVE)
[2023-11-23 20:12] VITALS: BP 118/65; PULSE 77; RESP 22; TEMP 36.1; O2SAT 97
[2023-11-23] MEDS: FAMOTIDINE 20 MG/2 ML VIAL IV PUSH (20:22)
[2023-11-24 04:39] LABS: Hepatitis B Core Ab Total REACTIVE (NON-REACTIVE)
[2023-11-24 05:29] VITALS: BP 137/72; PULSE 72; RESP 20; TEMP 36.7; O2SAT 98
[2023-11-24] MEDS: DEXTROSE 5%/0.9% SOD CHL 1,000 ML 100 ML IV CONT (05:34)
[2023-11-24] MEDS: methylPREDNISolone SOD SUCC 40 MG VIAL IV PUSH (05:34)
[2023-11-24 06:06] LABS: Hematocrit 36.3 % (37.0-47.0); Hemoglobin 10.7 g/dL (12.0-15.0); Immature Granulocyte Absolute 0.08 K/mm3 (0.00-0.031); Immature Granulocyte Percent A 0.9 % (0-0.5); Lymphocytes Absolute Auto 0.99 K/mm3 (0.9-3.2); Lymphocytes Percent Auto 11.3 % (18.3-44.2); Mean Corpuscular HGB Conc 29.5 g/dl (32-36); Mean Corpuscular Hemoglobin 22.7 pg (26-34); Mean Corpuscular Volume 76.9 fl (80-100); Mean Platelet Volume 9.4 fl (7.4-10.4); Monocytes Absolute Auto 0.2 K/mm3 (0.1-0.6); Monocytes Percent Auto 1.9 % (2.6-8.5); Neutrophils Absolute Auto 7.5 K/mm3 (1.3-6.7); Neutrophils Percent Auto 85.9 % (45.5-73.1); Platelet Count Result 407 k/mm3 (150-375); Red Blood Count 4.72 M/mm3 (4.2-5.4); Red Cell Distribution Width 18.6 % (11.5-14.5); White Blood Count 8.7 K/mm3 (4.5-10.0)
[2023-11-24 06:17] LABS: Alanine Aminotransferase 16 U/L (6-35); Albumin Level 4.1 g/dL (3.5-5.1); Alkaline Phosphatase 60 U/L (38-126); Anion Gap 7 mmol/L (4-12); Aspartate Amino Transferase 18 U/L (14-36); Bilirubin,Total 0.6 mg/dL (0.2-1.3); Blood Urea Nitrogen 16 mg/dL (7-17); Calcium 9.2 mg/dL (8.4-10.2); Carbon Dioxide 24 mmol/L (22-30); Chloride 106 mmol/L (98-107); Estimated CRCL calculation 145 ml/min; Estimated Glomerular Filt Rate > 60; Glucose 160 mg/dL (65-110); Potassium 3.6 mmol/L (3.4-5.0); Sodium 137 mmol/L (137-145)
[2023-11-24 07:55] LABS: Hypochromasia 1+; Platelet Estimate Increased (Adequate); Schistocytes None Seen
[2023-11-24] MEDS: ENOXAPARIN 40 MG/0.4 ML SYRINGE SUB-Q (08:06)
[2023-11-24] MEDS: hydroCHLOROthiazide 25 MG TABLET PO (08:06)
[2023-11-24] MEDS: amLODIPine BESYLATE 5 MG TABLET PO (08:06)
[2023-11-24] MEDS: FAMOTIDINE 20 MG/2 ML VIAL IV PUSH (08:06)
--- NOTE | 2023-11-24 13:50 | PM.PNGS ---
Progress Note: A&P Assessment and Plan (1) Acute Crohn's disease with intestinal obstruction: Code(s): K50.912 - Crohn's disease, unspecified, with intestinal obstruction Status: Acute Assessment and Plan: Has responded well to steroid medications. Okay from surgical standpoint to discharge. Follow-up per Dr. Fajardo. (2) Partial small bowel obstruction: Code(s): K56.600 - Partial intestinal obstruction, unspecified as to cause Status: Acute Assessment and Plan: Resolved. Plain films today showed normal bowel gas pattern no sign of obstruction. Most likely due to Crohn's enteritis with stricture ring. Okay to discharge from surgical standpoint. Subjective Subjective Date/Time Seen: 11/24/23 13:50 Patient reports: feels better, pain is less (No abdominal pain), tolerating a regular diet, bowel movement and afebrile Interval history: No abdominal pain. Eating well. Plans to go home today. Review of Systems Review of Systems: All systems reviewed & are unremarkable except as noted in HPI and below (HPI) Exam Const: General: comfortable and no acute distress Orientation/consciousness: patient oriented x3 GI: Inspection: obesity GI Palp: Yes Soft to palpation, No Tenderness to palpation present (GI), No Guarding due to palpation present (GI) and No Rebound tenderness present Auscultation: normal bowel sounds Neuro: General: patient oriented x3 and no focal motor deficits Extrem: General: no calf tenderness and no edema Psych: Affect: normal affect Insight: Good insight present (Psych) Judgement: Good judgement present (Psych) Objective Data Vital Signs Vital Signs: Vital Signs - 24 hr 11/23/23 20:12 11/23/23 20:00 11/24/23 05:29 Temperature 36.1 C L 36.7 C Pulse Rate 77 72 Respiratory Rate 22 H 20 Blood Pressure 118/65 137/72 Pulse Oximetry 97 98 Oxygen Delivery Room Air 11/24/23 08:00 Temperature Pulse Rate Respiratory Rate Blood Pressure Pulse Oximetry Oxygen Delivery Room Air Intake/Output Intake/Output: Intake & Output 11/21/23 11/22/23 11/23/23 11/24/23 23:59 23:59 23:59 23:59 Intake Total 1999 1748.3 Balance 1999 1748.3 Meds/Results Medications: Active Medications Generic Name Dose Route Start Last Admin Trade Name Freq PRN Reason Stop Dose Admin Acetaminophen 650 mg 11/22/23 08:57 11/23/23 05:26 Acetaminophen 325 Mg Tablet PO 650 mg Q4H PRN Administration Mild Pain (1-3) or Fever Amlodipine Besylate 5 mg 11/22/23 16:30 11/24/23 08:06 Amlodipine Besylate 5 Mg Tablet PO 5 mg QAM PAULA Administration Enoxaparin Sodium 40 mg 11/24/23 09:00 11/24/23 08:06 Enoxaparin 40 Mg/0.4 Ml Syringe SUB-Q 40 mg DAILY PAULA Administration Famotidine 20 mg 11/23/23 21:00 11/24/23 08:06 Famotidine 20 Mg/2 Ml Vial IV PUSH 20 mg Q12HR PAULA Administration Hydrochlorothiazide 25 mg 11/23/23 09:00 11/24/23 08:06 Hydrochlorothiazide 25 Mg Tablet PO 25 mg DAILY PAULA Administration Hydromorphone HCl 0.5 mg 11/23/23 09:52 11/23/23 20:22 Hydromorphone Hcl Inj (*Crx) 1 Mg/Ml Syr IV PUSH 0.5 mg Q3H PRN Administration Pain Rated 7-10 Dextrose/Sodium Chloride 1,000 mls @ 100 mls/hr 11/23/23 09:55 11/24/23 10:39 Dextrose 5% Sodium Chloride 0.9% IV CONT 0 mls/hr .Q10H PAULA Infusion Methylprednisolone Sodium Succinate 40 mg 11/22/23 18:00 11/24/23 05:34 Methylprednisolone Sod Succ 40 Mg Vial IV PUSH 40 mg Q12H PAULA Administration Ondansetron HCl 4 mg 11/23/23 11:20 11/23/23 11:51 Ondansetron Inj 4 Mg/2 Ml Vial IV PUSH 4 mg Q6H PRN Administration Nausea And Vomiting Radiology Results: ITS Impressions Abdomen/Pelvis CT 11/22/23 05:55 Impression: Wall thickening of mid to distal ileum with mild distention of jejunal and ileal small bowel loops. Findings suggest Crohn's disease and possible chronic low-grade small bowel obstructi
[2023-11-24 14:00] VITALS: BP 139/78; PULSE 82; RESP 20; TEMP 36.5; O2SAT 100
--- NOTE | 2023-11-24 14:23 | PM.DS ---
DS: Admitting Diagnosis Discharge Date 11/24/23 Admitting Diagnosis Cannabinoid hyperemesis syndrome Crohn's disease Hypertension GERD Morbid obesity DS: Discharge Diagnosis Discharge Diagnosis (1) Small bowel obstruction: Code(s): K56.609 - Unspecified intestinal obstruction, unspecified as to partial versus complete obstruction Status: Acute (2) Cannabinoid hyperemesis syndrome: Code(s): R11.2 - Nausea with vomiting, unspecified; F12.90 - Cannabis use, unspecified, uncomplicated Status: Acute (3) Crohn disease: Code(s): K50.90 - Crohn's disease, unspecified, without complications Status: Deleted (4) Hypertension: Code(s): I10 - Essential (primary) hypertension Status: Chronic (5) GERD (gastroesophageal reflux disease): Code(s): K21.9 - Gastro-esophageal reflux disease without esophagitis Status: Chronic (6) Morbid obesity: Code(s): E66.01 - Morbid (severe) obesity due to excess calories Status: Chronic DS: Summary Hospital Course Reason for hospitalization: cannabinoid hyperemesis syndrome Crohn's disease Hypertension GERD Morbid obesity Hospital Course: 11/22/23 This is a 43 year old female with a significant past medical history of Crohn's, anemia, anxiety, asthma, GERD, hepatic steatosis, HTN, morbid obesity, current smoker, marijuana abuse who presents to the hospital with chief complaint of nausea, vomiting, and abdominal pain. Patient states that her symptoms started yesterday and she states that it is similar to past Crohn's flair ups. She denies any fever, chills, vomiting, chest pain, shortness of breath. She endorses nausea, abdominal pain, and diarrhea.? Work up in the hospital included an abdomen/pelvis CT which revealed wall thickening of mid distal ileum with mild distention of jejunal and ileal small bowel loops suggestive of Crohn's disease, stable uterine fibroids, small left adrenal nodule. Initial labs revealed a WBC 10.4, BG 136, otherwise unremarkable. UA shown 1+ protein, 1+ urine blood, 3-5 urine RBC's, otherwise was unremarkable. Urine drug screen positive for Cannabinoids. She was given 2L NS, GI cocktail, dilaudid, and solu-medrol 40 mg while in the ER. She was started on maintenance IVF. 11/23/23: ?reporting nausea and abdominal pain today which is 5/5 on pain scale.? Labs today revealed white blood cell count of 11.5, hemoglobin 10.7, platelet count 392, otherwise unremarkable.? Patient was started on D5 NS she has not been able a tolerate p.o. intake, we changed her antiemetic over 2 Compazine, and started her on 0.5 mg of Dilaudid q.3 hours for abdominal pain.? Patient had an upper GI and small bowel x-ray which showed normal progression of oral contrast through a few dilated loops of small bowel within 30 minutes reaching a segment of nondilated small bowel with mucosal fold thickening the right lower quadrant with no further advance with of contrast from the following 5-1/2 hour consistent with either high-grade obstruction combination of obstruction and ileus.? KUB today showed dilated small bowel consistent with partial obstruction? And there was oral contrast seen in the? stomach, small bowel, and large bowel.? there are multiple dilated loops of small bowel on the x-ray.? General surgery was consulted and wanted NG-tube placed however patient was refusing that time as she just had a bowel movement wants to wait.? GI is following. 11/24/23: Patient denies any new complaints today. She states that her nausea and vomiting has subsided as well as her abdominal pain. She is passing gas and having bowel movements. X-ray of abdomen today showing nonobstructive bowel pattern. General surgery has signed off. Labs today show a hemoglobin of 10.7, white count is down 8.7, platelet count is 407, blood sugars 160, otherwise unremarkable. Patient is stable for discharge at this time. She will be discharged on a Solu-Medrol Dosepak. She will need
[2023-11-24 15:08] LABS: NIL 0.01 IU/mL; Quantiferon TB Plus, 1T NEGATIVE (NEGATIVE)
--- NOTE | 2023-11-24 15:23 | WPDGIPROGNO ---
Progress Note: A&P Assessment and Plan (1) Crohn's disease of small intestine with complication: Code(s): K50.019 - Crohn's disease of small intestine with unspecified complications Status: Acute Assessment and Plan: clinically much better and resolved she is going home she will need follow-up in our office in 3-4 weeks then we can talk about switching to another biologic since she has been symptomatic with humira (2) GERD with esophagitis: Code(s): K21.0 - Gastro-esophageal reflux disease with esophagitis Status: Acute (3) Partial small bowel obstruction: Code(s): K56.600 - Partial intestinal obstruction, unspecified as to cause Status: Acute (4) Nausea and vomiting in adult: Code(s): R11.2 - Nausea with vomiting, unspecified Status: Acute Subjective Date/time seen: 11/24/23 15:23 Interval history: no more nausea, passing gas and pain almost gone she is going home Review of Systems Review of Systems: All systems reviewed & are unremarkable except as noted in HPI and below Exam Const: General: comfortable and no acute distress Orientation/consciousness: patient oriented x3 HENMT: Face/Nose/Sinus: Normal nares present Eyes: General: appearance normal, both eyes and all related structures Neck: Neck: supple Resp: Effort & Inspection: normal respiratory effort Cardio: Rate: regular rate GI: Inspection: obesity GI Palp: Yes Soft to palpation, No Tenderness to palpation present (GI), No Guarding due to palpation present (GI) and No Rebound tenderness present Auscultation: normal bowel sounds Skin: General skin exam: normal color Neuro: General: patient oriented x3 and no focal motor deficits Extrem: General: no calf tenderness and no edema Psych: Affect: normal affect Insight: Good insight present (Psych) Judgement: Good judgement present (Psych) Objective Data Vital Signs Vital Signs: Vital Signs - 24 hr 11/23/23 20:12 11/23/23 20:00 11/24/23 05:29 Temperature 97.0 F L 98.0 F Pulse Rate 77 72 Respiratory Rate 22 H 20 Blood Pressure 118/65 137/72 Pulse Oximetry 97 98 Oxygen Delivery Room Air 11/24/23 08:00 11/24/23 14:00 Temperature 97.7 F Pulse Rate 82 Respiratory Rate 20 Blood Pressure 139/78 Pulse Oximetry 100 Oxygen Delivery Room Air Intake/Output Intake/Output: Intake & Output 11/21/23 11/22/23 11/23/23 11/24/23 23:59 23:59 23:59 23:59 Intake Total 1999 1748.3 Balance 1999 1748.3 Meds/Results Radiology Results: ITS Impressions Abdomen/Pelvis CT 11/22/23 05:55 Impression: Wall thickening of mid to distal ileum with mild distention of jejunal and ileal small bowel loops. Findings suggest Crohn's disease and possible chronic low-grade small bowel obstruction, with an overall appearance very similar to prior exam. No high-grade small bowel obstruction evident. Stable uterine fibroid. Stable small left adrenal nodule. Upper GI and Small Bowel X-Ray 11/22/23 21:04 IMPRESSION: 1. Relatively normal progression of oral contrast through a few dilated loops of small bowel, within 30 minutes reaching a segment of nondilated small bowel with mucosal fold thickening the right lower quadrant with no further advancement of contrast from the following 5 1/2 hours consistent with either high-grade obstruction or combination of obstruction and ileus. Abdomen X-Ray 11/24/23 09:21 IMPRESSION: 1. Nonobstructive bowel gas pattern. Labs Labs: Laboratory Results - last 24 hr 11/22/23 11/23/23 11/24/23 16:22 16:45 05:28 WBC 8.7 RBC 4.72 Hgb 10.7 L Hct 36.3 L MCV 76.9 L MCH 22.7 L MCHC 29.5 L RDW 18.6 H Plt Count 407 H MPV 9.4 Immature Gran % (Auto) 0.9 H Neut % (Auto) 85.9 H Lymph % (Auto) 11.3 L [place] % (Auto) 1.9 L Eos % (Auto) 0.0 Baso % (Auto) 0.0 L Lymph # (Auto) 0.99 [place] # (Auto) 0.2 Eos # (Auto)
[2023-11-24 15:53] LABS: Hepatitis C RNA, Quant PCR <15 NOT DETECTED IU/mL (NOT DETECTED)
[2023-11-30 22:08] LABS: Calprotectin, Stool 901 mcg/g
== END 2023-11-24 15:05 | disposition home or self-care (01) | DRG 386 ==
LOC: ANHED 07:18 → ANH3MEDSUR 07:40
PROVIDERS: Nurse Practitioner; Admitting Provider Internal Medicine; Emergency Provider Emergency Medicine; PCP Family Medicine; Visit Provider Nurse Practitioner Acute Care
DX: K50.90 Crohn's disease, unspecified, without complications (principal); K56.600 Partial intestinal obstruction, unspecified as to cause; Z68.43 Body mass index [BMI] 50.0-59.9, adult; I10 Essential (primary) hypertension; J45.909 Unspecified asthma, uncomplicated; K76.0 Fatty (change of) liver, not elsewhere classified; K21.9 Gastro-esophageal reflux disease without esophagitis; E27.8 Other specified disorders of adrenal gland; E66.01 Morbid (severe) obesity due to excess calories; R11.2 Nausea with vomiting, unspecified; F12.90 Cannabis use, unspecified, uncomplicated; F41.9 Anxiety disorder, unspecified; F17.210 Nicotine dependence, cigarettes, uncomplicated
CPT/HCPCS: 36415; 74018; 74177; 74250; 80053; 80074; 80307; 81001; 81025; 83690; 83993; 85025; 85652; 86140; 86480; 86704; 86706; 87045; 87340; 87427; 87449; 87493; 87522; 96361; 96372; 96374; 96375; 99285; A9270; J0780; J1170; J1200; J1630; J1650; J2405; J2919; J7030; J7042; Q9967

== ENCOUNTER 2024-02-06 08:40 | Emergency (ER) | payer OTHER, SELFPAY ==
[2024-02-06 08:48] VITALS: BP 140/88; PULSE 81; RESP 14; TEMP 36.7; O2SAT 96
[2024-02-06 09:25] LABS: Basophils Percent Auto 0.2 % (0.2-1.2); Hematocrit 33.4 % (37.0-47.0); Hemoglobin 9.9 g/dL (12.0-15.0); Immature Granulocyte Absolute 0.04 K/mm3 (0.00-0.031); Immature Granulocyte Percent A 0.4 % (0-0.5); Lymphocytes Absolute Auto 0.76 K/mm3 (0.9-3.2); Lymphocytes Percent Auto 7.4 % (18.3-44.2); Mean Corpuscular HGB Conc 29.6 g/dl (32-36); Mean Corpuscular Hemoglobin 22.6 pg (26-34); Mean Corpuscular Volume 76.3 fl (80-100); Mean Platelet Volume 9.3 fl (7.4-10.4); Monocytes Absolute Auto 0.4 K/mm3 (0.1-0.6); Monocytes Percent Auto 3.9 % (2.6-8.5); Neutrophils Absolute Auto 9.1 K/mm3 (1.3-6.7); Neutrophils Percent Auto 88.1 % (45.5-73.1); Platelet Count Result 374 k/mm3 (150-375); Red Blood Count 4.38 M/mm3 (4.2-5.4); White Blood Count 10.3 K/mm3 (4.5-10.0)
[2024-02-06 09:30] LABS: Appearance Urine Clear (Clear); Bacteria Urine None Seen /hpf; Bilirubin Urine Negative (Negative); Blood Urine Negative (Negative); Color Urine Yellow (Yellow); Glucose Urine UA Negative (Negative); Ketones Urine Negative (Negative); Leukocyte Esterase Ur Negative LEU/UL (Negative); Nitrate Urine Negative (Negative); Non Pathogenic Casts 0-2; Protein Urine 1+ mg/dL (Negative); RBC Urine 0-2 /hpf (0-2); Specific Grav Ur 1.021 (1.001-1.035); Squamous Epithelial Cell Urine Occasional /hpf (Few); WBC Urine 0-5 /hpf (0-3); pH Urine >=9.0 (5.0-9.0)
[2024-02-06 09:36] LABS: Alanine Aminotransferase 16 U/L (6-35); Albumin Level 4.3 g/dL (3.5-5.1); Alkaline Phosphatase 73 U/L (38-126); Anion Gap 11 mmol/L (4-12); Aspartate Amino Transferase 21 U/L (14-36); Bilirubin,Total 0.7 mg/dL (0.2-1.3); Blood Urea Nitrogen 12 mg/dL (7-17); Calcium 9.5 mg/dL (8.4-10.2); Carbon Dioxide 29 mmol/L (22-30); Chloride 101 mmol/L (98-107); Estimated CRCL calculation 121 ml/min; Estimated Glomerular Filt Rate > 60; Glucose 120 mg/dL (65-110); Lipase 47 U/L (23-300); Potassium 3.9 mmol/L (3.4-5.0); Sodium 141 mmol/L (137-145)
[2024-02-06 09:43] LABS: Add Urine Microscopic? YES
[2024-02-06 09:46] LABS: Anisocytosis 1+; Hypochromasia 2+; Platelet Estimate Adequate (Adequate); Polychromasia 1+
[2024-02-06 09:47] VITALS: BP 141/80; PULSE 75; RESP 19
[2024-02-06 09:47] LABS: Schistocytes None Seen; Stomatocytes 2+
--- NOTE | 2024-02-06 10:02 | ED.ABDPAIN ---
HPI - Abdominal Pain General Chief Complaint: Abdominal Pain Stated Complaint: chrons flare up Time Seen by Provider: 02/06/24 09:48 Source: patient Mode of arrival: ambulatory Limitations: no limitations History of Present Illness HPI narrative: This is a 43-year-old female with history of Crohn disease who presents to the ED for chief complaint of abdominal pain and N/V/D for the past couple of days. Reports that she started Stelara for Crohn's disease on Monday and ever since then has had the symptoms. She thinks that it may be another flare of Crohn's. Reports abdominal pain is generalized. No specific exacerbating or alleviating factors. She reports 1 episode of diarrhea and 3 episodes of vomiting. Denies GI bleeding symptoms, fevers, chills, chest pain, shortness of breath, back pain, flank pain, urinary symptoms. Related Data Home Medications Medication Instructions Recorded Confirmed amlodipine 10 mg tablet 10 mg PO DAILY 11/22/23 01/16/24 hydrochlorothiazide 25 mg tablet 25 mg PO DAILY 11/22/23 01/16/24 ondansetron HCl 4 mg tablet 4 mg PO Q8H 01/16/24 01/16/24 Allergies Allergy/AdvReac Type Severity Reaction Status Date / Time Penicillins Allergy Unknown Rash Verified 01/16/24 14:54 morphine AdvReac Nausea and Verified 01/16/24 14:54 Vomiting Review of Systems Review of Systems: All systems as dictated in HPI [facility] Past Medical History Medical History Abdominal wall cellulitis 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 Anemia Anxiety Asthma Crohn's disease of small intestine with complication GERD with esophagitis Hepatic steatosis History of small bowel obstruction Has been treated conservatively and also required surgical intervention x 2 with adhesiolysis. Hypertension Menorrhagia Morbid obesity Nephrolithiasis Partial obstruction of small intestine Partial small bowel obstruction Port-A-Cath in place History of right sided Port-A-Cath with subsequent removal placed 2011 removed proximally 2016. Placed due to poor vascular access. Tobacco abuse Surgical History Surgical History History of appendectomy Appendix removed during 2nd exploratory laparotomy. History of cholecystectomy Laparoscopic History of exploratory laparotomy Has had what sounds like an exploratory laparotomy with adhesiolysis x 2 in [facility]. History of tonsillectomy Status post laparoscopic hernia repair laparoscopic ventral hernia repair with mesh Family History Family History Father Diabetes mellitus Mother Hypertension Sibling No problems noted. Other Crohn's colitis Social History Social History Social History: Her in her have been together for many years but they got in 2020. They have 1 cat. They have no children. 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 She had drinks alcohol infrequently and only in moderation. She uses marijuana daily. Surrogate decision maker: Dorota Clayton () Code status: Full code. Smoking packs per day: 0.2 Smoking cigarettes per day: 4.0 Years smoked: 16 Smoking pack-years: 3.20 Smoking status: Current every day smoker Second hand tobacco smoke exposure: Yes Alcohol intake: current Alcohol use details: 1-2 alcoholic beverages every 1-2 months. Substance use: current Substance use type: marijuana Other substance usage details: smokes marijauna every day Last use: 08/20/2022 Do You Feel Safe in your Home?: Yes Lack of Transportation: No Lack of Food: Never True Current Housing: I Have Housing Concerned
[2024-02-06] MEDS: ONDANSETRON INJ 4 MG/2 ML VIAL IV PUSH (10:17)
[2024-02-06] MEDS: SODIUM CHLORIDE 0.9% IV 1,000 ML 999 ML IV CONT (10:18)
[2024-02-06] MEDS: KETOROLAC 30 MG/ML VIAL (*BKC) IV PUSH (10:20)
[2024-02-06] MEDS: methylPREDNISolone SOD SUCC 40 MG VIAL 80 MG IV PUSH (10:21)
[2024-02-06 10:47] VITALS: BP 152/85; PULSE 69; RESP 17
[2024-02-06 11:02] VITALS: BP 162/80; PULSE 73; RESP 18
== END 2024-02-06 11:26 | disposition home or self-care (01) ==
PROVIDERS: Student in an Organized Health Care Education/Training Program; Emergency Provider Physician Assistant; PCP Family Medicine
DX: R11.2 Nausea with vomiting, unspecified (principal); K50.90 Crohn's disease, unspecified, without complications; I10 Essential (primary) hypertension; F17.210 Nicotine dependence, cigarettes, uncomplicated; Z79.899 Other long term (current) drug therapy
CPT/HCPCS: 36415; 80053; 81001; 81025; 83690; 85025; 96361; 96374; 96375; 99284; J1885; J2405; J2919; J7030

== ENCOUNTER 2024-02-08 09:34 | Emergency (ER) | payer OTHER, SELFPAY ==
[2024-02-08] VITALS (44 sets, daily range): BP systolic 109–165; BP diastolic 72–115; PULSE 75–96; RESP 18–20; TEMP 36.1; O2SAT 92–100
--- NOTE | ~2024-02-08 | CT_ITS ---
EXAMINATION: CT abdomen pelvis w con DATE: 02/08/2024 11:03 INDICATION: Left upper quadrant abdominal pain TECHNIQUE: Computed tomography (CT) of the abdomen and pelvis was performed with 100 mL Omnipaque-350 intravenous contrast. Automated exposure control and iterative reconstruction technique were employe d. The dose-length product was 1601.79 mGy-cm. COMPARISON: 11/22/2023 and 04/15/2020 FINDINGS: Minimal basilar atelectasis. Heart size is normal. No pericardial or pleural effusion. Cholecystectom y clips at the gallbladder fossa. 10 mm left adrenal nodule unchanged since 04/15/2020 consistent with an adenoma. Liver, spleen, pancreas and right adrenal gland are normal. Change in 6 nonobstructing s tones at the upper pole the left kidney, 5 clustered in a single calyx including the largest which me asures 8 mm. The bladder and bilateral ureters are normal with no evident ureteral stones. 5 cm uteri ne fibroid. Bilateral adnexa are unremarkable. Tampon within the vaginal vault. There are multiple lo ops of dilated jejunum measuring up to 6 cm in maximal diameter with associated wall thickening. The dilation and wall thickening progressively decreases in the more distal small bowel without a discret e transition point to suggest obstruction. The colon is normal and relatively decompressed. Small sawyer unt of ascites in the pelvis. No abscess or free intraperitoneal gas. Bones are unremarkable. IMPRESSION: 1. Dilated small bowel with associated wall thickening but without discrete transition point and favo r an ileus in the setting of Crohn's disease related to enteritis. The distribution of the affected b owel appears more proximal than on the prior study with more slightly greater degree of dilation but less prominent wall thickening. 2. Fibroid uterus. 3. Nonobstructing left nephrolithiasis. Reviewed, dictated and finalized at location A. IMPRESSION: 1. Dilated small bowel with associated wall thickening but without discrete tra nsition point and favor an ileus in the setting of Crohn's disease related to e nteritis. The distribution of the affected bowel appears more proximal than on the prior study with more slightly greater degree of dilation but less prominen t wall thickening. 2. Fibroid uterus. 3. Nonobstructing left nephrolithiasis.
--- NOTE | ~2024-02-08 | CT_ITS ---
EXAMINATION: CT abdomen pelvis w con DATE: 02/10/2024 03:48 INDICATION: History of Crohn's disease. Ileus. Increasing abdominal pain. TECHNIQUE: Computed tomography (CT) of the abdomen and pelvis was performed with 100 cc Omnipaque 350 intravenous contrast. The dose-length product was 1542.88 mGy-cm. Automated exposure control and ite rative reconstruction technique were employed. COMPARISON: CT dated 02/08/2024. FINDINGS: Lung bases unremarkable. Heart size normal. No significant pleural or pericardial effusion. Status post cholecystectomy. Nonobstructing left nephrolithiasis. Nonobstructive bowel gas pattern. Enlarged uterus. The spleen, pancreas, adrenal glands and right kidney are unremarkable. No free air or free fluid. No acute osseous abnormality. Improved small bowel distention since prior examination. Trace free fluid in the pelvis. IMPRESSION: 1. Nonobstructing left nephrolithiasis. Reviewed, dictated and finalized at location B.
[2024-02-08 10:29] LABS: Hematocrit 31.1 % (37.0-47.0); Hemoglobin 8.8 g/dL (12.0-15.0); Immature Granulocyte Percent A 0.3 % (0-0.5); Mean Corpuscular HGB Conc 28.3 g/dl (32-36); Mean Corpuscular Hemoglobin 21.9 pg (26-34); Mean Corpuscular Volume 77.6 fl (80-100); Mean Platelet Volume 9.2 fl (7.4-10.4); Neutrophils Percent Auto 78.5 % (45.5-73.1); Platelet Count Result 362 k/mm3 (150-375); Red Blood Count 4.01 M/mm3 (4.2-5.4); White Blood Count 10.7 K/mm3 (4.5-10.0)
[2024-02-08 10:30] LABS: Basophils Percent Auto 0.3 % (0.2-1.2); Eosinophils Percent Auto 0.4 % (0-4.4); Immature Granulocyte Absolute 0.03 K/mm3 (0.00-0.031); Lymphocytes Absolute Auto 1.63 K/mm3 (0.9-3.2); Lymphocytes Percent Auto 15.3 % (18.3-44.2); Monocytes Absolute Auto 0.6 K/mm3 (0.1-0.6); Monocytes Percent Auto 5.2 % (2.6-8.5); Neutrophils Absolute Auto 8.4 K/mm3 (1.3-6.7)
[2024-02-08] MEDS: ONDANSETRON INJ 4 MG/2 ML VIAL IV PUSH ×2 (10:30→16:21)
--- NOTE | 2024-02-08 10:33 | ED.ABDPAIN ---
HPI - Abdominal Pain General Chief Complaint: Abdominal Pain <IRMA Thompson Last Filed: 02/08/24 19:08> Stated Complaint: abdominal pain <IRMA Thompson Last Filed: 02/08/24 19:08> Time Seen by Provider: 02/08/24 09:38 <IRMA Thompson Last Filed: 02/08/24 19:08> Source: patient <IRMA Thompson Last Filed: 02/08/24 19:08> Mode of arrival: ambulatory <IRMA Thompson Last Filed: 02/08/24 19:08> Limitations: no limitations <IRMA Thompson Last Filed: 02/08/24 19:08> History of Present Illness HPI narrative: This is a 43-year-old female who presents to the ED for chief complaint of abdominal pain, N/V/ D for the past week. Reports that she has history of Crohn's and this does feel like flare up. She was seen in this ED by myself 2 days ago and had similar symptoms at that time. She did start a new Crohn's disease infusion medication prior to being seen last time, however symptoms have persisted. Endorsing a little bit more left upper quadrant pain today. Endorses constipation. endorses several months of vaginal bleeding as well as intermittent bright rectal bleeding. She has known fibroids of the uterus. denies fevers, chills , syncope, lightheadedness, fevers, chills, headache, chest pain, shortness of breath, cough. <IRMA Thompson Last Filed: 02/08/24 19:08> Related Data Home Medications: Home Medications Medication Instructions Recorded Confirmed amlodipine 10 mg tablet 10 mg PO DAILY 11/22/23 01/16/24 hydrochlorothiazide 25 mg tablet 25 mg PO DAILY 11/22/23 01/16/24 ondansetron HCl 4 mg tablet 4 mg PO Q8H 01/16/24 01/16/24 <IRMA Thompson Last Filed: 02/08/24 19:08> Allergies/Adverse Reactions: Allergies Allergy/AdvReac Type Severity Reaction Status Date / Time Penicillins Allergy Unknown Rash Verified 02/08/24 09:34 morphine AdvReac Nausea and Verified 02/08/24 09:34 Vomiting <Zack Horne PA-C - Last Filed: 02/08/24 19:08> Review of Systems Review of Systems: All systems as dictated in HPI <IRMA Thompson Last Filed: 02/08/24 19:08> [facility] Past Medical History Medical History: Medical History Abdominal wall cellulitis 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 Anemia Anxiety Asthma Crohn's disease of small intestine with complication GERD with esophagitis Hepatic steatosis History of small bowel obstruction Has been treated conservatively and also required surgical intervention x 2 with adhesiolysis. Hypertension Menorrhagia Morbid obesity Nephrolithiasis Partial obstruction of small intestine Partial small bowel obstruction Port-A-Cath in place History of right sided Port-A-Cath with subsequent removal placed 2011 removed proximally 2016. Placed due to poor vascular access. Tobacco abuse <IRMA Thompson Last Filed: 02/08/24 19:08> Surgical History Surgical History: Surgical History History of appendectomy Appendix removed during 2nd exploratory laparotomy. History of cholecystectomy Laparoscopic History of exploratory laparotomy Has had what sounds like an exploratory laparotomy with adhesiolysis x 2 in [facility]. History of tonsillectomy Status post laparoscopic hernia repair laparoscopic ventral hernia repair with mesh <IRMA Thompson Last Filed: 02/08/24 19:08> Family History Family History: Family History Father Diabetes mellitus Mother Hypertension Sibling No problems noted. Other Crohn's colitis <IRMA Thompson Last Filed: 02/08/24 19:08> Social History Social History: Social History Socia
[2024-02-08 10:35] LABS: Alanine Aminotransferase 14 U/L (6-35); Albumin Level 4.1 g/dL (3.5-5.1); Alkaline Phosphatase 67 U/L (38-126); Anion Gap 8 mmol/L (4-12); Aspartate Amino Transferase 18 U/L (14-36); Bilirubin,Total 0.4 mg/dL (0.2-1.3); Blood Urea Nitrogen 27 mg/dL (7-17); Calcium 8.5 mg/dL (8.4-10.2); Carbon Dioxide 30 mmol/L (22-30); Chloride 102 mmol/L (98-107); Estimated CRCL calculation 96 ml/min; Estimated Glomerular Filt Rate > 60; Glucose 112 mg/dL (65-110); Lipase 52 U/L (23-300); Potassium 4.1 mmol/L (3.4-5.0); Sodium 140 mmol/L (137-145)
[2024-02-08 10:38] LABS: BEDSIDEPREGUCG Negative
[2024-02-08 10:40] LABS: Appearance Urine Clear (Clear); Bilirubin Urine Negative (Negative); Blood Urine Negative (Negative); Color Urine Dark Yellow (Yellow); Glucose Urine UA Negative (Negative); Ketones Urine Trace mg/dL (Negative); Leukocyte Esterase Ur Negative LEU/UL (Negative); Nitrate Urine Negative (Negative); Protein Urine Negative (Negative); Specific Grav Ur 1.026 (1.001-1.035); pH Urine 5.5 (5.0-9.0)
[2024-02-08] MEDS: LORazepam INJ (*CRX) 2 MG/ML VIAL 0.5 MG IV PUSH (10:52)
[2024-02-08] MEDS: SODIUM CHLORIDE 0.9% IV 1,000 ML 999 ML IV CONT (10:52)
[2024-02-08 10:53] LABS: Add Urine Microscopic? NO
[2024-02-08 11:03] LABS: Anisocytosis 2+; Hypochromasia 2+; Ovalocytes 1+; Platelet Estimate Adequate (Adequate); Poikilocytosis 1+
[2024-02-08 11:04] LABS: Schistocytes None Seen; Stomatocytes 1+
[2024-02-08] MEDS: HYDROmorphone HCL INJ (*CRX) 1 MG/ML SYR 0.5 MG IV PUSH ×3 (11:50→20:37)
[2024-02-08] MEDS: methylPREDNISolone SOD SUCC 125 MG VIAL IV PUSH (12:52)
[2024-02-08] MEDS: methylPREDNISolone SOD SUCC 40 MG VIAL IV PUSH (21:01)
[2024-02-09] VITALS (15 sets, daily range): BP systolic 132–175; BP diastolic 77–101; PULSE 60–88; RESP 16–22; TEMP 36.8–37.1; O2SAT 93–100
[2024-02-09] MEDS: HYDROmorphone HCL INJ (*CRX) 1 MG/ML SYR 0.5 MG IV PUSH ×8 (00:27→23:43)
[2024-02-09] MEDS: methylPREDNISolone SOD SUCC 40 MG VIAL IV PUSH ×3 (06:04→17:08)
[2024-02-09] MEDS: ONDANSETRON INJ 4 MG/2 ML VIAL IV PUSH ×3 (08:43→17:08)
[2024-02-09] MEDS: SODIUM CHLORIDE 0.9% IV 1,000 ML 125 ML IV CONT (10:08)
--- NOTE | 2024-02-09 14:14 | PC.NURSE ---
called for update from [facility], still no bed at this time.
[2024-02-09 15:51] LABS: Hematocrit 29.3 % (37.0-47.0); Hemoglobin 8.5 g/dL (12.0-15.0)
--- NOTE | 2024-02-09 18:10 | PC.NURSE ---
Started second bag of continuous IV fluids at 125ml/hour at 1750. Normal saline infusing
[2024-02-09] MEDS: SODIUM CHLORIDE 0.9% IV 1,000 ML 125 ML (18:11)
[2024-02-10] VITALS (11 sets, daily range): BP systolic 147–189; BP diastolic 81–98; PULSE 52–67; RESP 15–18; TEMP 36.5; O2SAT 98–100
[2024-02-10] MEDS: methylPREDNISolone SOD SUCC 40 MG VIAL IV PUSH ×4 (00:02→18:12)
[2024-02-10] MEDS: SODIUM CHLORIDE 0.9% IV 1,000 ML 125 ML IV CONT ×2 (02:25→10:36)
[2024-02-10] MEDS: fentaNYL CITRATE INJ (*CRX) 100 MCG/2 ML VIAL 50 MCG IV PUSH (03:01)
[2024-02-10] MEDS: PROCHLORPERAZINE EDISYLATE 10 MG/2 ML VIAL IV PUSH (03:02)
[2024-02-10 03:14] LABS: Hematocrit 28.8 % (37.0-47.0); Hemoglobin 8.4 g/dL (12.0-15.0); Immature Granulocyte Absolute 0.03 K/mm3 (0.00-0.031); Immature Granulocyte Percent A 0.5 % (0-0.5); Lymphocytes Absolute Auto 0.44 K/mm3 (0.9-3.2); Lymphocytes Percent Auto 6.7 % (18.3-44.2); Mean Corpuscular HGB Conc 29.2 g/dl (32-36); Mean Corpuscular Hemoglobin 22.1 pg (26-34); Mean Corpuscular Volume 75.8 fl (80-100); Mean Platelet Volume 9.8 fl (7.4-10.4); Monocytes Absolute Auto 0.1 K/mm3 (0.1-0.6); Monocytes Percent Auto 1.2 % (2.6-8.5); Neutrophils Absolute Auto 6.1 K/mm3 (1.3-6.7); Neutrophils Percent Auto 91.6 % (45.5-73.1); Platelet Count Result 315 k/mm3 (150-375); Red Cell Distribution Width 19.1 % (11.5-14.5); White Blood Count 6.6 K/mm3 (4.5-10.0)
[2024-02-10] MEDS: diphenhydrAMINE HCl INJ 50 MG/ML VIAL 25 MG IV PUSH (03:17)
[2024-02-10 03:28] LABS: Alanine Aminotransferase 17 U/L (6-35); Albumin Level 3.9 g/dL (3.5-5.1); Alkaline Phosphatase 54 U/L (38-126); Anion Gap 8 mmol/L (4-12); Aspartate Amino Transferase 20 U/L (14-36); Bilirubin,Total 0.5 mg/dL (0.2-1.3); Blood Urea Nitrogen 21 mg/dL (7-17); Carbon Dioxide 25 mmol/L (22-30); Chloride 104 mmol/L (98-107); Estimated CRCL calculation 121 ml/min; Estimated Glomerular Filt Rate > 60; Glucose 140 mg/dL (65-110); Lactic Acid Reflex 0.7 mmol/L (0.7-2.0); Potassium 3.8 mmol/L (3.4-5.0); Sodium 137 mmol/L (137-145)
[2024-02-10 03:34] LABS: Anisocytosis 1+; Hypochromasia 1+; Platelet Estimate Adequate (Adequate); Poikilocytosis 1+
[2024-02-10 03:35] LABS: Ovalocytes 1+; Schistocytes None Seen; Stomatocytes 1+
[2024-02-10] MEDS: TAMSULOSIN HCL 0.4 MG CAPSULE PO (07:41)
[2024-02-10] MEDS: KETOROLAC 15 MG/ML VIAL (*BKC) IV PUSH (07:41)
[2024-02-10] MEDS: ONDANSETRON INJ 4 MG/2 ML VIAL IV PUSH ×3 (10:23→20:35)
[2024-02-10] MEDS: HYDROmorphone HCL INJ (*CRX) 1 MG/ML SYR 0.5 MG IV PUSH ×3 (10:25→20:36)
--- NOTE | 2024-02-10 11:49 | PC.NURSE ---
[facility] [address] [phone]
--- NOTE | 2024-02-10 20:31 | PC.NURSE ---
Updated patient and spouse about transport times. Family notably upset about wait time for transport and updates throughout the day. Patient and spouse satisfied with update.
== END 2024-02-10 21:02 | disposition short-term general hospital (02) ==
PROVIDERS: Physician Assistant; Student in an Organized Health Care Education/Training Program; Emergency Provider Physician Assistant; PCP Family Medicine
DX: K50.90 Crohn's disease, unspecified, without complications (principal); K56.7 Ileus, unspecified; D64.9 Anemia, unspecified; N20.0 Calculus of kidney; I10 Essential (primary) hypertension; F17.210 Nicotine dependence, cigarettes, uncomplicated
CPT/HCPCS: 36415; 74177; 80048; 80053; 80076; 81003; 81025; 83605; 83690; 83735; 85014; 85018; 85025; 96361; 96374; 96375; 96376; 99285; A9270; J0780; J1170; J1200; J1885; J2060; J2405; J2919; J3010; J7030; Q9967

== ENCOUNTER 2024-04-25 14:14 | Inpatient (IN) | payer OTHER, SELFPAY ==
[2024-04-25] VITALS (10 sets, daily range): BP systolic 111–154; BP diastolic 49–87; PULSE 67–77; RESP 14–23; TEMP 36.4; O2SAT 94–100
--- NOTE | ~2024-04-25 | CT_ITS ---
CT abdomen pelvis w con Ordering provider: Jana Modi MD History: 44 years Female with . n/v, abd pain . Comparison: None. Technique: CT abdomen and pelvis with IV and without oral contrast. Automated exposure control and it erative reconstruction technique were employed. The dose-length product was 1784.68 mGy-cm. 100 mL Om nipaque 350 was given IV. Findings: VISUALIZED LOWER CHEST: Normal. UPPER ABDOMINAL ORGANS: Liver: Hepatomegaly. Gallbladder: Status post cholecystectomy. Spleen: Normal. Stomach/duodenum: Normal. Pancreas: Normal. Adrenals: Bilateral left adrenal adenoma measuring 1.3 cm. No follow-up advised unless clinically war ranted. Kidneys: Multiple left kidney stones in the upper pole. PELVIC ORGANS: The bladder is normal. Uterus: Fibroid is seen in the lower segment measuring 4.3 x 5.3 x 4.1 BOWEL AND MESENTERY: Colon: No evidence of diverticulitis. No evidence of appendicitis. Small Bowel: Markedly thickened sm all bowel is seen with a target-like sign. The differential includes ischemia and enteritis. Dilatati on is seen suggestive of obstruction. Transitional area is seen in the pelvis. Peritoneum/mesentery: No free air or free fluid. No mesenteric lymphadenopathy. RETROPERITONEUM: Normal aorta. No retroperitoneal lymphadenopathy. MUSCULOSKELETAL: Superficial soft tissues: The superficial soft tissues are normal. Bones: Normal spine. IMPRESSION: 1. Thickened wall of the small bowel. Infection and ischemia in the differential. Crohn's disease ca nnot be excluded. Clinical correlation advised. Dilatation is noted suggestive of obstruction. 2. Left kidney stones. 3. Uterine fibroid. Reviewed, dictated and finalized at location A. IMPRESSION: 1. Thickened wall of the small bowel. Infection and ischemia in the differenti al. Crohn's disease cannot be excluded. Clinical correlation advised. Dilatatio n is noted suggestive of obstruction. 2. Left kidney stones. 3. Uterine fibroid.
--- NOTE | 2024-04-25 14:43 | ED.ABDPAIN ---
HPI - Abdominal Pain General Chief Complaint: Abdominal Pain Stated Complaint: abd pain, sent from GI Time Seen by Provider: 04/25/24 14:29 History of Present Illness HPI narrative: Patient with history of Crohn's, multiple SBO does, prior hernia surgery, presents here with several days of nausea, vomiting, diarrhea, feels like when she has bowel obstructions, pain mostly to the mid abdomen Related Data Home Medications Medication Instructions Recorded Confirmed amlodipine 10 mg tablet 10 mg PO DAILY 11/22/23 01/16/24 hydrochlorothiazide 25 mg tablet 25 mg PO DAILY 11/22/23 01/16/24 ondansetron HCl 4 mg tablet 4 mg PO Q8H 01/16/24 01/16/24 Allergies Allergy/AdvReac Type Severity Reaction Status Date / Time Penicillins Allergy Unknown Rash Verified 04/25/24 14:25 morphine AdvReac Nausea and Verified 04/25/24 14:25 Vomiting Review of Systems Review of Systems: All systems reviewed & are unremarkable except as noted in HPI and below PMFSH Past Medical History Medical History Abdominal wall cellulitis 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 Anemia Anxiety Asthma Crohn's disease of small intestine with complication GERD with esophagitis Hepatic steatosis History of small bowel obstruction Has been treated conservatively and also required surgical intervention x 2 with adhesiolysis. Hypertension Menorrhagia Morbid obesity Nephrolithiasis Partial obstruction of small intestine Partial small bowel obstruction Port-A-Cath in place History of right sided Port-A-Cath with subsequent removal placed 2011 removed proximally 2017. Placed due to poor vascular access. Tobacco abuse Surgical History Surgical History History of appendectomy Appendix removed during 2nd exploratory laparotomy. History of cholecystectomy Laparoscopic History of exploratory laparotomy Has had what sounds like an exploratory laparotomy with adhesiolysis x 2 in [facility]. History of tonsillectomy Status post laparoscopic hernia repair laparoscopic ventral hernia repair with mesh Family History Family History Father Diabetes mellitus Mother Hypertension Sibling No problems noted. Other Crohn's colitis Social History Social History Social History: Her in her have been together for many years but they got in 2020. They have 1 cat. They have no children. 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 She had drinks alcohol infrequently and only in moderation. She uses marijuana daily. Surrogate decision maker: Dorota Clayton () Code status: Full code. Smoking packs per day: 0.2 Smoking cigarettes per day: 4.0 Years smoked: 16 Smoking pack-years: 3.20 Smoking status: Current every day smoker Second hand tobacco smoke exposure: Yes Alcohol intake: current Alcohol use details: 1-2 alcoholic beverages every 1-2 months. Substance use: current Substance use type: marijuana Other substance usage details: smokes marijauna every day Last use: 08/20/2022 Do You Feel Safe in your Home?: Yes Lack of Transportation: No Lack of Food: Never True Current Housing: I Have Housing Concerned About Future Housing: No Difficulty Paying Gas/Electric Bills: No Difficulty Paying for Meds: No Currently Unemployed: No Education: Grade School Difficulty w/ Childcare or Family Care: No Living arrangements: with family Additional living arrangements comments: Lives in [place] with her fiance. Recently moved to the area from [facility]. Occupation/Education: other Additional
[2024-04-25 14:46] LABS: BEDSIDEPREGUCG Negative (Negative)
[2024-04-25 15:04] LABS: Add Urine Microscopic? YES; Appearance Urine Turbid (Clear); Bacteria Urine 2+ /hpf; Bilirubin Urine 1+ (Negative); Blood Urine 3+ (Negative); Color Urine Dark Yellow (Yellow); Glucose Urine UA Negative (Negative); Ketones Urine Trace mg/dL (Negative); Leukocyte Esterase Ur Trace LEU/UL (Negative); Need Manual Microscopic Reviewed; Nitrate Urine Negative (Negative); Protein Urine 1+ mg/dL (Negative); RBC Urine 21-50 /hpf (0-2); Specific Grav Ur 1.021 (1.001-1.035); Squamous Epithelial Cell Urine Many /hpf (Few); WBC Urine 0-5 /hpf (0-3); pH Urine 5.5 (5.0-9.0)
[2024-04-25 15:12] LABS: Basophils Percent Auto 0.3 % (0.2-1.2); Eosinophils Absolute Auto 0.1 K/mm3 (0-0.3); Eosinophils Percent Auto 0.6 % (0-4.4); Hematocrit 40.1 % (37.0-47.0); Hemoglobin 12.7 g/dL (12.0-15.0); Immature Granulocyte Absolute 0.02 K/mm3 (0.00-0.031); Immature Granulocyte Percent A 0.2 % (0-0.5); Lymphocytes Absolute Auto 1.84 K/mm3 (0.9-3.2); Lymphocytes Percent Auto 17.1 % (18.3-44.2); Mean Corpuscular HGB Conc 31.7 g/dl (32-36); Mean Corpuscular Hemoglobin 25.6 pg (26-34); Mean Corpuscular Volume 80.8 fl (80-100); Mean Platelet Volume 9.3 fl (7.4-10.4); Monocytes Absolute Auto 0.6 K/mm3 (0.1-0.6); Monocytes Percent Auto 5.2 % (2.6-8.5); Neutrophils Absolute Auto 8.2 K/mm3 (1.3-6.7); Neutrophils Percent Auto 76.6 % (45.5-73.1); Platelet Count Result 351 k/mm3 (150-375); Red Blood Count 4.96 M/mm3 (4.2-5.4); Red Cell Distribution Width 19.9 % (11.5-14.5); White Blood Count 10.7 K/mm3 (4.5-10.0)
[2024-04-25] MEDS: HYDROmorphone HCL INJ (*CRX) 1 MG/ML SYR 0.5 MG IV PUSH ×3 (15:14→22:22)
[2024-04-25] MEDS: LACTATED RINGERS 1,000 ML 999 ML IV CONT (15:15)
[2024-04-25] MEDS: diphenhydrAMINE HCl INJ 50 MG/ML VIAL 25 MG IV PUSH (15:16)
[2024-04-25] MEDS: METOCLOPRAMIDE HCL INJ 10 MG/2 ML VIAL IV PUSH (15:18)
[2024-04-25 15:23] LABS: Alanine Aminotransferase 13 U/L (6-35); Albumin Level 4.4 g/dL (3.5-5.1); Alkaline Phosphatase 60 U/L (38-126); Anion Gap 9 mmol/L (4-12); Aspartate Amino Transferase 21 U/L (14-36); Bilirubin,Total 0.6 mg/dL (0.2-1.3); Blood Urea Nitrogen 11 mg/dL (7-17); Calcium 9.3 mg/dL (8.4-10.2); Carbon Dioxide 24 mmol/L (22-30); Chloride 107 mmol/L (98-107); Estimated CRCL calculation 101 ml/min; Estimated Glomerular Filt Rate > 60; Glucose 101 mg/dL (65-110); Lipase 44 U/L (23-300); Potassium 3.9 mmol/L (3.4-5.0); Sodium 140 mmol/L (137-145)
[2024-04-25 16:44] LABS: Lactic Acid Reflex 1.4 mmol/L (0.7-2.0)
[2024-04-25] MEDS: LACTATED RINGERS 1,000 ML 125 ML IV CONT (17:34)
--- NOTE | 2024-04-25 17:50 | PM.IMHP ---
H&P: HPI History of Present Illness Date/Time: 04/25/24 17:50 Chief Complaint: Abdominal pain. Narrative: This is a 44-year-old female with history of Crohn's disease and bowel obstruction who presented to the emergency department for evaluation of abdominal pain. The patient provides the following history. She reports a gradual onset of diffuse abdominal pain over the last couple of days associated with nausea and loose watery stools. The pain intensified yesterday and feels similar to when she has had small-bowel obstructions in the past. She denies fever, chest pain, shortness of breath, vomiting, hematemesis, melena, hematochezia, and mucousy stool. Patient reports that her Crohn's has been pretty well controlled since being started on Stelara. In the ED: She was afebrile on arrival with stable vital signs. CMP and CBC were pretty unremarkable aside from a WBC count of 10.7. CT of the abdomen pelvis showed thickened wall of the small bowel and dilatation subjective of obstruction, left kidney stones, and uterine fibroid. Urinalysis was positive for 1+ protein, trace ketones, 3+ blood, 1+ bilirubin, trace leukocyte esterase, 21 to 50 RBC, many squamous cells and 2+ bacteria. She received analgesics and antiemetics and is being admitted in this setting for GI and surgery consultations. Review of Systems Review of Systems: 12 systems were reviewed and are negative except for as per HPI. [facility] Past Medical History Medical History (Updated 04/25/24 @ 21:56 by Juliana Francois PA-C) Abdominal wall cellulitis 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 Anemia Anxiety Asthma Crohn's disease of small intestine with complication GERD with esophagitis Hepatic steatosis History of small bowel obstruction Has been treated conservatively and also required surgical intervention x 2 with adhesiolysis. Hypertension Menorrhagia Morbid obesity Nephrolithiasis Port-A-Cath in place History of right sided Port-A-Cath with subsequent removal placed 2011 removed proximally 2016. Placed due to poor vascular access. Tobacco abuse Surgical History Surgical History History of appendectomy Appendix removed during 2nd exploratory laparotomy. History of cholecystectomy Laparoscopic History of exploratory laparotomy Has had what sounds like an exploratory laparotomy with adhesiolysis x 2 in [facility]. History of tonsillectomy Status post laparoscopic hernia repair laparoscopic ventral hernia repair with mesh Family History Family History Father Diabetes mellitus Mother Hypertension Sibling No problems noted. Other Crohn's colitis Social History Social History Social History: Surrogate decision maker: Dorota Clayton () Code status: Full code. Smoking packs per day: 0.25 Smoking cigarettes per day: 5.0 Years smoked: 16 Smoking pack-years: 4.00 Smoking status: Current every day smoker Second hand tobacco smoke exposure: Yes Alcohol intake: current Alcohol use details: 1-2 alcoholic beverages every 1-2 months. Substance use: current Substance use type: marijuana Other substance usage details: smokes marijauna every day Last use: 08/20/2022 Do You Feel Safe in your Home?: Yes Lack of Transportation: No Lack of Food: Never True Current Housing: I Have Housing Concerned About Future Housing: No Difficulty Paying Gas/Electric Bills: No Difficulty Paying for Meds: No Currently Unemployed: No Education: Grade School Difficulty w/ Childcare or Family Care: No Living arrangements: with family Additional living arrangements comments: Lives in [place] with her fiance. Recently moved to the area from [facility]. Occupa
--- NOTE | 2024-04-25 17:57 | PM.CNGS ---
Assessment and Plan Assessment and plan (1) Acute Crohn's disease with intestinal obstruction: Code(s): K50.912 - Crohn's disease, unspecified, with intestinal obstruction Status: Acute Assessment and Plan: exam largely benign at this time, will place NG if N/V develops, will get GI consult, cont bowel rest and serial exams for now History of Present Illness Consult details Consult date: 04/25/24 Reason for consult: abdominal pain Requesting physician: Jana Modi MD Narrative: The patient is a 44-year-old female with a history of Crohn's disease and multiple small-bowel obstructions presenting to the emergency department complaining mid abdominal pain, nausea. The patient reports this episode is very similar to her previous small-bowel obstruction, Crohn's flare up symptomatology. Workup in the emergency department, including imaging, is suggestive of small-bowel obstruction secondary to Crohn's disease. Review of Systems Review of Systems: All systems reviewed & are unremarkable except as noted in HPI and below PMFSH Past Medical History Medical History Abdominal wall cellulitis 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 Anemia Anxiety Asthma Crohn's disease of small intestine with complication GERD with esophagitis Hepatic steatosis History of small bowel obstruction Has been treated conservatively and also required surgical intervention x 2 with adhesiolysis. Hypertension Menorrhagia Morbid obesity Nephrolithiasis Partial obstruction of small intestine Partial small bowel obstruction Port-A-Cath in place History of right sided Port-A-Cath with subsequent removal placed 2011 removed proximally 2017. Placed due to poor vascular access. Tobacco abuse Surgical History Surgical History History of appendectomy Appendix removed during 2nd exploratory laparotomy. History of cholecystectomy Laparoscopic History of exploratory laparotomy Has had what sounds like an exploratory laparotomy with adhesiolysis x [address] [facility]. History of tonsillectomy Status post laparoscopic hernia repair laparoscopic ventral hernia repair with mesh Family History Family History Father Diabetes mellitus Mother Hypertension Sibling No problems noted. Other Crohn's colitis Social History Social History Social History: Surrogate decision maker: Dorota Clayton () Code status: Full code. Smoking packs per day: 0.25 Smoking cigarettes per day: 5.0 Years smoked: 16 Smoking pack-years: 4.00 Smoking status: Current every day smoker Second hand tobacco smoke exposure: Yes Alcohol intake: current Alcohol use details: 1-2 alcoholic beverages every 1-2 months. Substance use: current Substance use type: marijuana Other substance usage details: smokes marijauna every day Last use: 08/20/2022 Do You Feel Safe in your Home?: Yes Lack of Transportation: No Lack of Food: Never True Current Housing: I Have Housing Concerned About Future Housing: No Difficulty Paying Gas/Electric Bills: No Difficulty Paying for Meds: No Currently Unemployed: No Education: Grade School Difficulty w/ Childcare or Family Care: No Living arrangements: with family Additional living arrangements comments: Lives in [place] with her fiance. Recently moved to the area from [facility]. Occupation/Education: other Additional occupation/education comments: Unemployed. Spiritual care concerns: No Meds Home Medications and Allergies Home Medications Medication Instructions Recorded Confirmed Type albuterol sulfate 0.63 mg/3 mL 0.63 mg (3 mL) inhalation Q6H #75 09/05/23 01/16/24
--- NOTE | 2024-04-25 19:36 | ADMGEN ---
This patient, Roma Clayton, was admitted to 3 [facility] [place] Surg Room 320-01. Patient/family oriented to hospital policies and general routines including ID bracelet, bed and alarms, visiting hours, pain management, procedures, bathroom and other care routines, personal items, smoking policy, room service/diet, and visiting hours. Information on how to activate the Rapid Response Team has been discussed. Patient/Family are encouraged to report perceived risks to care and to ask questions if they do not understand what they are told or what they should do.
[2024-04-25] MEDS: ONDANSETRON INJ 4 MG/2 ML VIAL IV PUSH (20:21)
[2024-04-25] MEDS: FAMOTIDINE 20 MG/2 ML VIAL IV PUSH (20:21)
[2024-04-26] MEDS: ONDANSETRON INJ 4 MG/2 ML VIAL IV PUSH ×5 (01:10→21:41)
[2024-04-26] MEDS: HYDROmorphone HCL INJ (*CRX) 1 MG/ML SYR 0.5 MG IV PUSH ×6 (01:11→21:41)
[2024-04-26] MEDS: LACTATED RINGERS 1,000 ML 125 ML IV CONT ×3 (03:28→21:40)
[2024-04-26 06:00] VITALS: BP 125/65; PULSE 67; RESP 20; TEMP 36.3; O2SAT 98
--- NOTE | 2024-04-26 08:16 | WPDGICN ---
Assessment and Plan Assessment and plan (1) Generalized abdominal pain: Code(s): R10.84 - Generalized abdominal pain Status: Acute (2) Small bowel obstruction: Code(s): K56.609 - Unspecified intestinal obstruction, unspecified as to partial versus complete obstruction Status: Acute (3) Crohn's disease: Qualifiers: Digestive disease complication type: with intestinal obstruction Gastrointestinal tract location: small intestine Qualified Code(s): K50.012 - Crohn's disease of small intestine with intestinal obstruction Code(s): K50.90 - Crohn's disease, unspecified, without complications Status: Acute Plan 1. Crohn's disease exacerbation/generalized abdominal pain/SBO: Colonoscopy 05/16/2023 was normal. EGD over 5 years ago was unremarkable. Capsule endoscopy 10/30/2023 was normal. Patient was hospitalized at the beginning of November at [facility] for Crohn's flare and early small-bowel obstruction and again 02/08/[address] [facility] x5 days but no diagnosis of bowel obstruction at that time. Diagnosed with Crohn's 7-8 years ago previously on [facility] x3 years. Patient states that since changing to Stelara in mid January she has been doing very well over the past few months but yesterday she started having severe abdominal pain, she was sent from our office to the ER yesterday. Last Stelara dose Mar 29. CT scan yesterday's showed a T marked thickening of the small bowel with target sign and small bowel dilation suggestive of obstruction. Surgery is on the patient's case and no plans for surgery at this time. Patient is having severe pain 01/23 despite being on Dilaudid q.3 hours. She did have a bowel movement that was small and liquid but she is not passing gas. Labs on admission showed normal BMP, LFTs, lactic acid, and lipase. CBC was normal except WBC is at 11. keep patient NPO at this time given persistent pain continue steroids 40 mg b.i.d. care with narcotics, will add tramadol 50 mg Q 6 hours as needed to be alternated with Dilaudid no indication for antibiotics at this time continue supportive care with pain management and antiemetics continue IV hydration will plan for repeat imaging and CBC tomorrow Thank you very much for allowing me share in the care this very nice patient. GI Consult Note Consult date/time: 04/26/24 08:16 Reason for consult: Crohn's Disease HPI: This is a very pleasant 44 year old female with past medical surgical history of Crohn's disease, small bowel obstruction, GERD, HTN, anxiety, obesity, cholecystectomy, and hernia repair. She presented to the ER for abdominal pain. GI consulted for Crohn's disease. Patient was seen with significant other at bedside. Patient was seen in the office yesterday by myself at which time the patient was having severe abdominal pain and I advised her to proceed to the ER due to concerns for recurrent SBO. Patient with a Hx of exploratory bowel surgery around 12 years ago in [facility] at which time she was advised she had small bowel adhesions/strictures but no bowel resection was performed. Following her surgery she went approximately 4 years before she was diagnosed with Crohn's disease. Crohn's diagnosis was based on the current small bowel obstructions and elevated fecal calprotectin. She was diagnosed with Crohn's approximately 7-8 years ago and when she transferred her care [place] in January she had been on Humira for approximately 3 years. After her visit she was seen at [facility] on 02/06/2024 and 02/08/2024 and the second visit was transferred to [facility] for 5 days. just prior to her last hospitalization she was changed to Stelara Q 8 week and over the past few months she has noticed significant improvement since changing to Stelara but yesterday she started having severe abdominal pain. Today the patient complaints of significant generalized abdominal pain 7 out of 10 even with Dilaudid. She denies any
[2024-04-26 09:10] LABS: Hematocrit 41.5 % (37.0-47.0); Hemoglobin 12.3 g/dL (12.0-15.0); Mean Corpuscular HGB Conc 29.6 g/dl (32-36); Mean Corpuscular Hemoglobin 25.3 pg (26-34); Mean Corpuscular Volume 85.4 fl (80-100); Mean Platelet Volume 9.4 fl (7.4-10.4); Platelet Count Result 259 k/mm3 (150-375); Red Blood Count 4.86 M/mm3 (4.2-5.4); Red Cell Distribution Width 19.7 % (11.5-14.5); White Blood Count 9.6 K/mm3 (4.5-10.0)
[2024-04-26] MEDS: methylPREDNISolone SOD SUCC 40 MG VIAL IV PUSH ×2 (10:03→21:41)
[2024-04-26] MEDS: FAMOTIDINE 20 MG/2 ML VIAL IV PUSH ×2 (10:03→21:41)
[2024-04-26 10:46] LABS: Anion Gap 13 mmol/L (4-12); Blood Urea Nitrogen 10 mg/dL (7-17); Calcium 9.2 mg/dL (8.4-10.2); Carbon Dioxide 19 mmol/L (22-30); Chloride 108 mmol/L (98-107); Estimated CRCL calculation 115 ml/min; Estimated Glomerular Filt Rate > 60; Glucose 78 mg/dL (65-110); Magnesium 1.6 mg/dL (1.6-2.3); Potassium 4.5 mmol/L (3.4-5.0); Sodium 140 mmol/L (137-145)
--- NOTE | 2024-04-26 10:49 | PM.PNGS ---
Progress Note: A&P Assessment and Plan (1) Acute Crohn's disease with intestinal obstruction: Code(s): K50.912 - Crohn's disease, unspecified, with intestinal obstruction Status: Acute Assessment and Plan: exam improving, +bowel fxn, will start clears, appreciate GI input Subjective Subjective Date/Time Seen: 04/26/24 10:49 Interval history: feels a little better, small bm this am Review of Systems Review of Systems: All systems reviewed & are unremarkable except as noted in HPI and below Exam Const: General: cooperative, no acute distress, uncomfortable and obese Resp: Auscultation: clear to auscultation bilaterally Cardio: Rate: regular rate Rhythm: regular rhythm GI: Inspection: normal to inspection, distended, incision and obesity GI Palp: Yes abdominal tenderness, Yes Soft to palpation, Yes Tenderness to palpation present (GI), No Guarding due to palpation present (GI) and No Rigid due to palpation Objective Data Vital Signs Vital Signs: Vital Signs - 24 hr 04/25/24 14:22 04/25/24 14:42 04/25/24 15:32 Temperature 36.4 C L Pulse Rate 77 76 70 Respiratory Rate 17 14 20 Blood Pressure 152/83 H 111/87 154/76 H Pulse Oximetry 99 99 100 Oxygen Delivery Room Air 04/25/24 15:55 04/25/24 16:02 04/25/24 16:49 Temperature Pulse Rate 71 72 71 Respiratory Rate 22 H 21 H 23 H Blood Pressure 138/77 131/63 Pulse Oximetry 99 98 Oxygen Delivery 04/25/24 18:02 04/25/24 18:32 04/25/24 20:52 Temperature 36.4 C Pulse Rate 69 67 71 Respiratory Rate 23 H 20 22 H Blood Pressure 142/56 H 138/49 L 114/64 Pulse Oximetry 94 96 97 Oxygen Delivery 04/25/24 20:00 04/26/24 06:00 Temperature 36.3 C L Pulse Rate 71 67 Respiratory Rate 22 H 20 Blood Pressure 125/65 Pulse Oximetry 97 98 Oxygen Delivery Room Air Intake/Output Intake/Output: Intake & Output 04/23/24 04/24/24 04/25/24 04/26/24 23:59 23:59 23:59 23:59 Intake Total 1000 1000 Balance 1000 1000 Meds/Results Medications: Active Medications Generic Name Dose Route Start Last Admin Trade Name Freq PRN Reason Stop Dose Admin Albuterol 2.5 mg 04/25/24 21:41 Albuterol Sulfate Neb 2.5 Mg/3 Ml Inh INHALATION Q4HRT PRN Shortness Of Breath Famotidine 20 mg 04/25/24 21:00 04/26/24 10:03 Famotidine 20 Mg/2 Ml Vial IV PUSH 20 mg Q12HR PAULA Administration Hydromorphone HCl 0.5 mg 04/25/24 22:00 04/26/24 07:50 Hydromorphone Hcl Inj (*Crx) 1 Mg/Ml Syr IV PUSH 0.5 mg Q3H PRN Administration Pain Rated 7-10 Lactated Ringer's 1,000 mls @ 125 mls/hr 04/25/24 17:25 04/26/24 03:28 Lr - Lactated Ringers Iv IV CONT 125 mls/hr .Q8H PAULA Administration Methylprednisolone Sodium Succinate 40 mg 04/26/24 07:40 04/26/24 10:03 Methylprednisolone Sod Succ 40 Mg Vial IV PUSH 40 mg Q12HR PAULA Administration Ondansetron HCl 4 mg 04/25/24 17:21 04/26/24 07:53 Ondansetron Inj 4 Mg/2 Ml Vial IV PUSH 4 mg Q4H PRN Administration Nausea Radiology Results: ITS Impressions Abdomen/Pelvis CT 04/25/24 15:51 IMPRESSION: 1. Thickened wall of the small bowel. Infection and ischemia in the differential. Crohn's disease cannot be excluded. Clinical correlation advised. Dilatation is noted suggestive of obstruction. 2. Left kidney stones. 3. Uterine fibroid. Labs Labs: Laboratory Results - last 24 hr 04/25/24 04/25/24 04/25/24 14:43 14:44 15:05 WBC 10.7 H RBC 4.96 Hgb 12.7 D Hct 40.1 MCV 80.8 MCH 25.6 L MCHC 31.7 L RDW 19.9 H Plt Count 351 MPV 9.3 Immature Gran % (Auto) 0.2 Neut % (Auto) 76.6 H Lymph % (Auto) 17.1 L Bertie % (Auto) 5.2 Eos % (Auto) 0.6 Baso % (Auto) 0.3 Lymph # (Auto) 1.84 Bertie # (Auto) 0.6 Eos # (Auto) 0.1 Baso # (Auto) 0.0 Abs Immat Gran (auto) 0.02 Absolute Neuts (auto) 8.2 H Absolute Nucleated RBC 0.000 Nucleated RBC %
--- NOTE | 2024-04-26 11:42 | WPDGICN ---
Assessment and Plan Assessment and plan (1) Crohn's disease: Qualifiers: Digestive disease complication type: with intestinal obstruction Gastrointestinal tract location: small intestine Qualified Code(s): K50.012 - Crohn's disease of small intestine with intestinal obstruction Code(s): K50.90 - Crohn's disease, unspecified, without complications Status: Acute (2) Acute Crohn's disease with intestinal obstruction: Code(s): K50.912 - Crohn's disease, unspecified, with intestinal obstruction Status: Acute (3) Partial small bowel obstruction: Code(s): K56.600 - Partial intestinal obstruction, unspecified as to cause Status: Acute Assessment and Plan: The patient has evidence of exacerbated Crohn's disease compromising a great portion of her small bowel. She is currently being treated with methylprednisolone 40 mg IV b.i.d., intravenous hydration and analgesics: Dilaudid alternating with tramadol. In addition, her Stelara dose, which due for in 4 weeks, will be prescribed as soon as possible, therefore decreasing the interval from every 8 to every 4 weeks. Will obtain baseline calprotectin and CRP and CBC to monitor her inflammatory parameters. GI Consult Note Consult date/time: 04/26/24 11:42 HPI: Patient has a longstanding history of Crohn's disease, diagnosed approximately 7 years ago. Prior to her diagnosis, she was having frequent bouts of abdominal pain with partial small bowel obstructions, regarding multiple hospitalizations and medical treatment. 4 years before her diagnosis, she underwent an exploratory laparotomy, however, reportedly, there was no bowel resection but a description of multiple adhesions. She was then finally diagnosed with Crohn's disease based on her clinical picture and abnormal calprotectin levels along with altered small-bowel imaging on cross-sectional studies. He has been using adalimumab for 3 years but 3 months ago switched to Stelara 90 mg subcutaneous every 8 weeks after loading dose for loss of response. She did very well, however approximately 24 hours ago she started having severe abdominal pain, rated 9/10 in intensity, not completely relieving with the largest. There is stool passage of semi liquid stools, no hematochezia, melena or vomiting. She is currently admitted for medical management. Her last colonoscopy performed 1 year ago was unremarkable. A capsule endoscopy performed in October of this year was within normal limits. 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 Anemia Anxiety Asthma Crohn's disease of small intestine with complication GERD with esophagitis Hepatic steatosis History of small bowel obstruction Has been treated conservatively and also required surgical intervention x 2 with adhesiolysis. Hypertension Menorrhagia Morbid obesity Nephrolithiasis Port-A-Cath in place History of right sided Port-A-Cath with subsequent removal placed 2011 removed proximally 2017. Placed due to poor vascular access. Tobacco abuse Surgical History Surgical History History of appendectomy Appendix removed during 2nd exploratory laparotomy. History of cholecystectomy Laparoscopic History of exploratory laparotomy Has had what sounds like an exploratory laparotomy with adhesiolysis x 2 in [facility]. History of tonsillectomy Status post laparoscopic hernia repair laparoscopic ventral hernia repair with mesh Family History Family History Father Diabetes mellitus Mother Hypertension Sibl
--- NOTE | 2024-04-26 11:44 | WPDGICN ---
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 Anemia Anxiety Asthma Crohn's disease of small intestine with complication GERD with esophagitis Hepatic steatosis History of small bowel obstruction Has been treated conservatively and also required surgical intervention x 2 with adhesiolysis. Hypertension Menorrhagia Morbid obesity Nephrolithiasis Port-A-Cath in place History of right sided Port-A-Cath with subsequent removal placed 2011 removed proximally 2017. Placed due to poor vascular access. Tobacco abuse Surgical History Surgical History History of appendectomy Appendix removed during 2nd exploratory laparotomy. History of cholecystectomy Laparoscopic History of exploratory laparotomy Has had what sounds like an exploratory laparotomy with adhesiolysis x 2 in [facility]. History of tonsillectomy Status post laparoscopic hernia repair laparoscopic ventral hernia repair with mesh Family History Family History Father Diabetes mellitus Mother Hypertension Sibling No problems noted. Other Crohn's colitis Social History Social History Social History: Surrogate decision maker: Dorota Clayton () Code status: Full code. Smoking packs per day: 1 Smoking cigarettes per day: 20.0 Years smoked: 16 Smoking pack-years: 16.00 Smoking status: Current every day smoker Tobacco type: cigarettes Second hand tobacco smoke exposure: No Alcohol intake: never Alcohol use details: 1-2 alcoholic beverages every 1-2 months. Substance use: never Substance use type: does not use Other substance usage details: smokes marijauna every day Last use: 08/20/2022 Do You Feel Safe in your Home?: Yes Lack of Transportation: No Lack of Food: Never True Current Housing: I Have Housing Concerned About Future Housing: No Difficulty Paying Gas/Electric Bills: No Difficulty Paying for Meds: No Currently Unemployed: No Education: High School Diploma/GED Difficulty w/ Childcare or Family Care: No Living arrangements: with family Additional living arrangements comments: Lives in [place] with her amanda. Recently moved to the area from [facility]. Occupation/Education: other Additional occupation/education comments: Unemployed. Spiritual care concerns: No Meds Home Medications and Allergies Home Medications Medication Instructions Recorded Confirmed Type nebulizers (Altera Nebulizer #1 ea 09/06/23 04/25/24 Rx System) amlodipine 10 mg tablet 10 mg PO DAILY 11/22/23 04/25/24 History hydrochlorothiazide 25 mg tablet 25 mg PO DAILY 11/22/23 04/25/24 History ondansetron HCl 4 mg tablet 4 mg PO Q8H PRN Nausea And Vomiting 01/16/24 04/25/24 History ustekinumab 90 mg/mL subcutaneous 90 mg subcut .8 weeks #1 mL 01/16/24 04/25/24 Rx syringe ([employer] [facility]) albuterol sulfate 0.63 mg/3 mL 0.63 mg inhalation Q4H PRN 04/25/24 04/25/24 History solution for nebulization Shortness Of Breath dicyclomine 10 mg capsule 10 mg PO QID PRN Abdominal 04/25/24 04/25/24 History Discomfort Allergies Allergy/AdvReac Type Severity Reaction Status Date / Time Penicillins Allergy Unknown Rash Verified 04/25/24 14:25 morphine AdvReac Nausea and Verified 04/25/24 14:25 Vomiting Vital Signs Vital Signs - 24 hr 04/25/24 14:22 04/25/24 14:42 04/25/24 15:32 Temperature 97.5 F L Pulse Rate 77 76 70 Respiratory Rate 17 14 20 Blood Pressure 152/83 H 111/87 154/76 H Pulse Oximetry 99 99 10
[2024-04-26 14:00] VITALS: BP 144/79; PULSE 70; RESP 18; TEMP 36; O2SAT 98
--- NOTE | 2024-04-26 14:50 | PM.IMPN ---
Progress Note: A&P Assessment and Plan (1) Small bowel obstruction: Code(s): K56.609 - Unspecified intestinal obstruction, unspecified as to partial versus complete obstruction Status: Acute Assessment and Plan: Patient presents with abdominal pain. CT of the abdomen/pelvis shows thickened wall of small bowel with proximal dilation. Suspect she has partial small-bowel obstruction related to focal inflammation from Crohn's. GI consulted. General surgery consulted. Will start steroids in the form of Solu-Medrol. Discussed with GI. Continue IV fluids. Bowel rest. Place NG tube if symptoms worsen. (2) Crohn's disease: Qualifiers: Digestive disease complication type: with intestinal obstruction Gastrointestinal tract location: small intestine Qualified Code(s): K50.012 - Crohn's disease of small intestine with intestinal obstruction Code(s): K50.90 - Crohn's disease, unspecified, without complications Status: Acute Assessment and Plan: As above. (3) Hypertension: Code(s): I10 - Essential (primary) hypertension Status: Chronic Assessment and Plan: Patient's blood pressure was reviewed on 04/26 Blood pressure remains well controlled. Will continue to monitor (4) Tobacco abuse: Code(s): Z72.0 - Tobacco use Status: Chronic Assessment and Plan: She was educated about the benefits of smoking cessation. Plan DVT prophylaxis -Lovenox Code status -full Subjective Date/time seen: 04/26/24 14:50 Interval history: 44yo female with history of Crohn's disease and bowel obstruction who presented to the emergency department for evaluation of abdominal pain. Abd pain better. +BM today. Was having nausea and vomiting that seemed to be associated with the narcotics. Now taking Zofran prior to narocitcs which has helped. SHe has been compliant with her home meds. She denies any medication or dietary changes. Has been having increased stress. Exam Narrative: AF 97.4 125/65 67 20 98% ra Gen - NARD Chest - CTA bilaterally, nml RR CV - RRR S1/S2 Abd - Soft, diffusely tender but worse mid-abdomen. no rebound. minimal guarding. Ext - No pedal edema Psych - Nml mood and affect Skin - Warm and dry Objective Data Vital Signs Vital Signs: Vital Signs - 24 hr 04/25/24 15:32 04/25/24 15:55 04/25/24 16:02 Temperature Pulse Rate 70 71 72 Respiratory Rate 20 22 H 21 H Blood Pressure 154/76 H 138/77 131/63 Pulse Oximetry 100 99 98 Oxygen Delivery 04/25/24 16:49 04/25/24 18:02 04/25/24 18:32 Temperature Pulse Rate 71 69 67 Respiratory Rate 23 H 23 H 20 Blood Pressure 142/56 H 138/49 L Pulse Oximetry 94 96 Oxygen Delivery 04/25/24 20:52 04/25/24 20:00 04/26/24 06:00 Temperature 97.6 F 97.4 F L Pulse Rate 71 71 67 Respiratory Rate 22 H 22 H 20 Blood Pressure 114/64 125/65 Pulse Oximetry 97 97 98 Oxygen Delivery Room Air Intake/Output Intake/Output: Intake & Output 04/23/24 04/24/24 04/25/24 04/26/24 23:59 23:59 23:59 23:59 Intake Total 1000 1999 Balance 1000 1999 Meds/Results Medications: Active Medications Generic Name Dose Route Start Last Admin Trade Name Freq PRN Reason Stop Dose Admin Albuterol 2.5 mg 04/25/24 21:41 Albuterol Sulfate Neb 2.5 Mg/3 Ml Inh INHALATION Q4HRT PRN Shortness Of Breath Famotidine 20 mg 04/25/24 21:00 04/26/24 10:03 Famotidine 20 Mg/2 Ml Vial IV PUSH 20 mg Q12HR PAULA Administration Hydromorphone HCl 0.5 mg 04/25/24 22:00 04/26/24 12:38 Hydromorphone Hcl Inj (*Crx) 1 Mg/Ml Syr IV PUSH 0.5 mg Q3H PRN Administration Pain Rated 7-10 Lactated Ringer's 1,000 mls @ 125 mls/hr 04/25/24 17:25 04/26/24 12:39 Lr - Lactated Ringers Iv IV CONT 125 mls/hr .Q8H PAULA Administration Methylprednisolone Sodium Succinate 40 mg 04/26/24 07:40 04/26/24 10:03 Methylprednisolone Sod Succ [address] Mg [address]
[2024-04-26] MEDS: ENOXAPARIN 40 MG/0.4 ML SYRINGE SUB-Q (15:20)
[2024-04-26] MEDS: traMADol HCL (*CRX) 50 MG TABLET PO (15:20)
[2024-04-26 20:30] VITALS: BP 116/86; PULSE 61; RESP 20; TEMP 36.7; O2SAT 99
[2024-04-27] MEDS: HYDROmorphone HCL INJ (*CRX) 1 MG/ML SYR 0.5 MG IV PUSH ×6 (02:40→23:29)
[2024-04-27] MEDS: traMADol HCL (*CRX) 50 MG TABLET PO ×3 (05:10→18:15)
[2024-04-27 06:00] VITALS: BP 139/61; PULSE 68; RESP 18; TEMP 36.7; O2SAT 97
[2024-04-27] MEDS: LACTATED RINGERS 1,000 ML 125 ML IV CONT ×2 (06:03→14:06)
[2024-04-27 06:43] LABS: Eosinophils Percent Auto 0.2 % (0-4.4); Hematocrit 35.9 % (37.0-47.0); Hemoglobin 11.6 g/dL (12.0-15.0); Immature Granulocyte Absolute 0.02 K/mm3 (0.00-0.031); Immature Granulocyte Percent A 0.3 % (0-0.5); Lymphocytes Absolute Auto 0.56 K/mm3 (0.9-3.2); Lymphocytes Percent Auto 8.9 % (18.3-44.2); Mean Corpuscular HGB Conc 32.3 g/dl (32-36); Mean Corpuscular Volume 80.5 fl (80-100); Mean Platelet Volume 10.2 fl (7.4-10.4); Monocytes Percent Auto 0.5 % (2.6-8.5); Neutrophils Absolute Auto 5.7 K/mm3 (1.3-6.7); Neutrophils Percent Auto 90.1 % (45.5-73.1); Platelet Count Result 261 k/mm3 (150-375); Red Blood Count 4.46 M/mm3 (4.2-5.4); Red Cell Distribution Width 18.5 % (11.5-14.5); White Blood Count 6.3 K/mm3 (4.5-10.0)
[2024-04-27 06:56] LABS: Alanine Aminotransferase 15 U/L (6-35); Albumin Level 4.3 g/dL (3.5-5.1); Alkaline Phosphatase 50 U/L (38-126); Anion Gap 11 mmol/L (4-12); Aspartate Amino Transferase 22 U/L (14-36); Bilirubin,Total 0.5 mg/dL (0.2-1.3); Blood Urea Nitrogen 11 mg/dL (7-17); CRP 0.5 mg/dL (<1.0); Calcium 9.3 mg/dL (8.4-10.2); Carbon Dioxide 20 mmol/L (22-30); Chloride 104 mmol/L (98-107); Estimated CRCL calculation 165 ml/min; Estimated Glomerular Filt Rate > 60; Glucose 118 mg/dL (65-110); Potassium 4.2 mmol/L (3.4-5.0); Sodium 135 mmol/L (137-145)
[2024-04-27 07:28] LABS: Anisocytosis 2+; Hypochromasia 1+; Platelet Estimate Adequate (Adequate); Schistocytes None Seen
--- NOTE | 2024-04-27 08:25 | WPDGIPROGNO ---
Progress Note: A&P Assessment and Plan (1) Crohn's disease: Qualifiers: Digestive disease complication type: with intestinal obstruction Gastrointestinal tract location: small intestine Qualified Code(s): K50.012 - Crohn's disease of small intestine with intestinal obstruction Code(s): K50.90 - Crohn's disease, unspecified, without complications Status: Acute (2) Enteritis: Code(s): K52.9 - Noninfective gastroenteritis and colitis, unspecified Status: Acute (3) Crohn's disease of small intestine with complication: Code(s): K50.019 - Crohn's disease of small intestine with unspecified complications Status: Acute Plan The patient was admitted with a history of Crohn's disease of her small bowel with some partial small-bowel obstruction due to exacerbation of her underlying disease. She is responding to corticosteroids and pain is controlled with Dilaudid and tramadol. Her white count is better than admission, and CRP is within normal range, Although there is still abdominal tenderness on physical examination. Plan discussed with the patient and she agrees to have clear liquids today. We will probably get her Stelara dose early next week so we can continue with decreased interval, every 4 weeks instead of every 8 weeks to optimize therapy. Time Spent With Patient Time with patient: 15 - 25 minutes Subjective Date/time seen: 04/27/24 08:25 Interval history: The patient feels much better than yesterday, reporting less abdominal There is no fever.pain, this time 6/10 instead of 9/10 when she was admitted. She has not had anything by mouth yet, but she feels like she could try clear liquids today. Review of Systems Review of Systems: All systems reviewed & are unremarkable except as noted in HPI and below Exam Const: Other: Minimal discomfort. GI: GI Palp: Yes Soft to palpation, No Firmness to palpation present (GI), Yes Tenderness to palpation present (GI) and No Guarding due to palpation present (GI) Other: Minimal bowel sounds. Objective Data Vital Signs Vital Signs: Vital Signs - 24 hr 04/26/24 14:00 04/26/24 20:30 04/27/24 06:00 Temperature 96.8 F L 98.0 F 98.0 F Pulse Rate 70 61 68 Respiratory Rate 18 20 18 Blood Pressure 144/79 H 116/86 139/61 Pulse Oximetry 98 99 97 Intake/Output Intake/Output: Intake & Output 04/24/24 04/25/24 04/26/24 04/27/24 23:59 23:59 23:59 23:59 Intake Total 1000 3000 1000 Balance 1000 3000 1000 Meds/Results Medications: Active Medications Generic Name Dose Route Start Last Admin Trade Name Freq PRN Reason Stop Dose Admin Albuterol 2.5 mg 04/25/24 21:41 Albuterol Sulfate Neb 2.5 Mg/3 Ml Inh INHALATION Q4HRT PRN Shortness Of Breath Enoxaparin Sodium 40 mg 04/26/24 15:00 04/26/24 15:20 Enoxaparin 40 Mg/0.4 Ml Syringe SUB-Q 40 mg DAILY PAULA Administration Famotidine 20 mg 04/25/24 21:00 04/26/24 21:41 Famotidine 20 Mg/2 Ml Vial IV PUSH 20 mg Q12HR PAULA Administration Hydromorphone HCl 0.5 mg 04/25/24 22:00 04/27/24 06:37 Hydromorphone Hcl Inj (*Crx) 1 Mg/Ml Syr IV PUSH 0.5 mg Q3H PRN Administration Pain Rated 7-10 Lactated Ringer's 1,000 mls @ 125 mls/hr 04/25/24 17:25 04/27/24 06:03 Lr - Lactated Ringers Iv IV CONT 125 mls/hr .Q8H PAULA Administration Methylprednisolone Sodium Succinate 40 mg 04/26/24 07:40 04/26/24 21:41 Methylprednisolone Sod Succ 40 Mg Vial IV PUSH 40 mg Q12HR PAULA Administration Ondansetron HCl 4 mg 04/25/24 17:21 04/26/24 21:41 Ondansetron Inj 4 Mg/2 Ml Vial IV PUSH 4 mg Q4H PRN Administration Nausea Tramadol HCl 50 mg 04/26/24 11:03 04/27/24 05:10 Tramadol Hcl (*Crx) 50 Mg Tablet PO 50 mg Q6H PRN Administration Pain Rated 4-6 Radiology Results: ITS Impressions Abdomen/Pelvis CT 04/25/24 15:51 IMPRESSION: 1. Thickened wall of the small bowel.
[2024-04-27 08:56] VITALS: O2SAT 97
[2024-04-27] MEDS: ENOXAPARIN 40 MG/0.4 ML SYRINGE SUB-Q (09:10)
[2024-04-27] MEDS: FAMOTIDINE 20 MG/2 ML VIAL IV PUSH ×2 (09:10→20:21)
[2024-04-27] MEDS: methylPREDNISolone SOD SUCC 40 MG VIAL IV PUSH ×2 (09:10→20:20)
--- NOTE | 2024-04-27 11:27 | PM.PNGS ---
Progress Note: A&P Assessment and Plan (1) Acute Crohn's disease with intestinal obstruction: Code(s): K50.912 - Crohn's disease, unspecified, with intestinal obstruction Status: Acute Assessment and Plan: feels much better, advance diet as tolerated, cont steroids per GI, encourage OOB Subjective Subjective Date/Time Seen: 04/27/24 11:27 Interval history: feels much better, bob clears Review of Systems Review of Systems: All systems reviewed & are unremarkable except as noted in HPI and below Exam Const: General: cooperative, comfortable and no acute distress Resp: Auscultation: clear to auscultation bilaterally Cardio: Rate: regular rate Rhythm: regular rhythm GI: Inspection: normal to inspection and distended GI Palp: No abdominal tenderness and Yes Soft to palpation Objective Data Vital Signs Vital Signs: Vital Signs - 24 hr 04/26/24 14:00 04/26/24 20:30 04/27/24 06:00 Temperature 36.0 C L 36.7 C 36.7 C Pulse Rate 70 61 68 Respiratory Rate 18 20 18 Blood Pressure 144/79 H 116/86 139/61 Pulse Oximetry 98 99 97 Oxygen Delivery Fraction of Inspired Oxygen 04/27/24 08:56 Temperature Pulse Rate Respiratory Rate Blood Pressure Pulse Oximetry 97 Oxygen Delivery Room Air Fraction of Inspired Oxygen 21 Intake/Output Intake/Output: Intake & Output 04/24/24 04/25/24 04/26/24 04/27/24 23:59 23:59 23:59 23:59 Intake Total 1000 3000 1000 Balance 1000 3000 1000 Meds/Results Medications: Active Medications Generic Name Dose Route Start Last Admin Trade Name Freq PRN Reason Stop Dose Admin Albuterol 2.5 mg 04/25/24 21:41 Albuterol Sulfate Neb 2.5 Mg/3 Ml Inh INHALATION Q4HRT PRN Shortness Of Breath Enoxaparin Sodium 40 mg 04/26/24 15:00 04/27/24 09:10 Enoxaparin 40 Mg/0.4 Ml Syringe SUB-Q 40 mg DAILY PAULA Administration Famotidine 20 mg 04/25/24 21:00 04/27/24 09:10 Famotidine 20 Mg/2 Ml Vial IV PUSH 20 mg Q12HR PAULA Administration Hydromorphone HCl 0.5 mg 04/25/24 22:00 04/27/24 09:26 Hydromorphone Hcl Inj (*Crx) 1 Mg/Ml Syr IV PUSH 0.5 mg Q3H PRN Administration Pain Rated 7-10 Lactated Ringer's 1,000 mls @ 125 mls/hr 04/25/24 17:25 04/27/24 06:03 Lr - Lactated Ringers Iv IV CONT 125 mls/hr .Q8H PAULA Administration Methylprednisolone Sodium Succinate 40 mg 04/26/24 07:40 04/27/24 09:10 Methylprednisolone Sod Succ 40 Mg Vial IV PUSH 40 mg Q12HR PAULA Administration Ondansetron HCl 4 mg 04/25/24 17:21 04/26/24 21:41 Ondansetron Inj 4 Mg/2 Ml Vial IV PUSH 4 mg Q4H PRN Administration Nausea Tramadol HCl 50 mg 04/26/24 11:03 04/27/24 05:10 Tramadol Hcl (*Crx) 50 Mg Tablet PO 50 mg Q6H PRN Administration Pain Rated 4-6 Radiology Results: ITS Impressions Abdomen/Pelvis CT 04/25/24 15:51 IMPRESSION: 1. Thickened wall of the small bowel. Infection and ischemia in the differential. Crohn's disease cannot be excluded. Clinical correlation advised. Dilatation is noted suggestive of obstruction. 2. Left kidney stones. 3. Uterine fibroid. Labs Labs: Laboratory Results - last 24 hr 04/27/24 06:13 WBC 6.3 RBC 4.46 Hgb 11.6 L Hct 35.9 L MCV 80.5 D MCH 26.0 MCHC 32.3 RDW 18.5 H Plt Count 261 MPV 10.2 Immature Gran % (Auto) 0.3 Neut % (Auto) 90.1 H Lymph % (Auto) 8.9 L [place] % (Auto) 0.5 L Eos % (Auto) 0.2 Baso % (Auto) 0.0 L Lymph # (Auto) 0.56 L [place] # (Auto) 0.0 L Eos # (Auto) 0.0 Baso # (Auto) 0.0 Abs Immat Gran (auto) 0.02 Absolute Neuts (auto) 5.7 Absolute Nucleated RBC 0.000 Nucleated RBC % 0.0 Platelet Estimate Adequate Hypochromasia 1+ Anisocytosis 2+ Schistocytes None seen Sodium 135 L Potassium 4.2 Chloride 104 Carbon Dioxide 20 L Anion Gap 11 BUN 11 Creatinine 0.50 L Estim Creat Clear Calc 165 Estimated GFR > 60 Glucose 118 H Calcium 9.3 Total Bilirubin
[2024-04-27 14:00] VITALS: BP 145/68; PULSE 68; RESP 18; TEMP 36.1; O2SAT 99
--- NOTE | 2024-04-27 16:05 | WPDPN ---
Progress Note: A&P Assessment and Plan (1) Small bowel obstruction: Code(s): K56.609 - Unspecified intestinal obstruction, unspecified as to partial versus complete obstruction Status: Acute Assessment and Plan: Patient presents with abdominal pain. CT of the abdomen/pelvis shows thickened wall of small bowel with proximal dilation. Suspect she has partial small-bowel obstruction related to focal inflammation from Crohn's. GI consulted. General surgery consulted. Will start steroids in the form of Solu-Medrol. Discussed with GI. Continue IV fluids. Bowel rest. Place NG tube if symptoms worsen. 44-year-old female with history of Crohn disease admitted with a partial small-bowel obstruction secondary to exacerbation of the disease patient is being treated with steroid and pain is controlled with Dilaudid and tramadol patient was seen by GI patient clinical symptoms have improved and recommended to start the patient on clear liquids, patient clinical symptoms improved seen by general surgery recommended to continue to advance her diet as tolerated continue present management. (2) Crohn's disease: Qualifiers: Digestive disease complication type: with intestinal obstruction Gastrointestinal tract location: small intestine Qualified Code(s): K50.012 - Crohn's disease of small intestine with intestinal obstruction Code(s): K50.90 - Crohn's disease, unspecified, without complications Status: Acute Assessment and Plan: As above. (3) Hypertension: Code(s): I10 - Essential (primary) hypertension Status: Chronic Assessment and Plan: Patient's blood pressure was reviewed on 04/26 Blood pressure remains well controlled. Will continue to monitor (4) Tobacco abuse: Code(s): Z72.0 - Tobacco use Status: Chronic Assessment and Plan: She was educated about the benefits of smoking cessation. Plan DVT prophylaxis -Lovenox Code status -full Subjective Date/time seen: 04/27/24 16:05 Interval history: 44-year-old female with history of Crohn disease admitted with a partial small-bowel obstruction secondary to exacerbation of the disease patient is being treated with steroid and pain is controlled with Dilaudid and tramadol patient was seen by GI patient clinical symptoms have improved and recommended to start the patient on clear liquids, patient clinical symptoms improved seen by general surgery recommended to continue to advance her diet as tolerated continue present management. Review of Systems Review of Systems: 12 systems were reviewed and are negative except for as per HPI. Exam Narrative: morbidly obese Patient is comfortable, NAD HEENT: eyes are clear and none icteric Chest: no retraction ABD: Distended Lower extremities: no edema SKIN: nonjaundiced Neuro: grossly intact. Objective Data Vital Signs Vital Signs: Vital Signs - 24 hr 04/26/24 20:30 04/27/24 06:00 04/27/24 08:56 Temperature 36.7 C 36.7 C Pulse Rate 61 68 Respiratory Rate 20 18 Blood Pressure 116/86 139/61 Pulse Oximetry 99 97 97 Oxygen Delivery Room Air Fraction of Inspired Oxygen 21 04/27/24 14:00 Temperature 36.1 C L Pulse Rate 68 Respiratory Rate 18 Blood Pressure 145/68 H Pulse Oximetry 99 Oxygen Delivery Fraction of Inspired Oxygen Intake/Output Intake/Output: Intake & Output 04/24/24 04/25/24 04/26/24 04/27/24 23:59 23:59 23:59 23:59 Intake Total 1000 3000 2240 Balance 1000 3000 2240 Meds/Results Medications: Active Medications Generic Name Dose Route Start Last Admin Trade Name Freq PRN Reason Stop Dose Admin Albuterol 2.5 mg 04/25/24 21:41 Albuterol Sulfate Neb 2.5 Mg/3 Ml Inh INHALATION Q4HRT PRN Shortness Of Breath Enoxaparin Sodium 40 mg 04/26/24 15:00 04/27/24 09:10 Enoxaparin 40 Mg/0.4 Ml Syringe SUB-Q 40 mg DAILY PAULA Administration Famotidine 20
[2024-04-27 21:25] VITALS: BP 132/77; PULSE 62; RESP 16; TEMP 36.5; O2SAT 100
[2024-04-28] MEDS: HYDROmorphone HCL INJ (*CRX) 1 MG/ML SYR 0.5 MG IV PUSH ×4 (03:50→18:41)
[2024-04-28] MEDS: traMADol HCL (*CRX) 50 MG TABLET PO ×2 (04:59→21:17)
[2024-04-28] MEDS: LACTATED RINGERS 1,000 ML 125 ML IV CONT ×3 (04:59→21:17)
[2024-04-28 06:00] VITALS: BP 151/89; PULSE 46; RESP 16; TEMP 36.2; O2SAT 99
[2024-04-28 06:52] LABS: Hematocrit 35.3 % (37.0-47.0); Hemoglobin 10.9 g/dL (12.0-15.0); Mean Corpuscular HGB Conc 30.9 g/dl (32-36); Mean Corpuscular Hemoglobin 24.9 pg (26-34); Mean Corpuscular Volume 80.8 fl (80-100); Mean Platelet Volume 9.8 fl (7.4-10.4); Platelet Count Result 283 k/mm3 (150-375); Red Blood Count 4.37 M/mm3 (4.2-5.4); Red Cell Distribution Width 18.6 % (11.5-14.5); White Blood Count 7.2 K/mm3 (4.5-10.0)
[2024-04-28 07:11] LABS: Anion Gap 7 mmol/L (4-12); Blood Urea Nitrogen 14 mg/dL (7-17); Calcium 9.2 mg/dL (8.4-10.2); Carbon Dioxide 26 mmol/L (22-30); Chloride 102 mmol/L (98-107); Estimated CRCL calculation 141 ml/min; Estimated Glomerular Filt Rate > 60; Glucose 132 mg/dL (65-110); Magnesium 1.7 mg/dL (1.6-2.3); Potassium 4.1 mmol/L (3.4-5.0); Sodium 135 mmol/L (137-145)
--- NOTE | 2024-04-28 09:17 | PM.PNGS ---
Progress Note: A&P Assessment and Plan (1) Acute Crohn's disease with intestinal obstruction: Code(s): K50.912 - Crohn's disease, unspecified, with intestinal obstruction Status: Acute Assessment and Plan: much improved, cont steroids per GI, exam benign and bob diet, +bowel fxn, no acute surgical issues, will s/o, call c ?s, issues Subjective Subjective Date/Time Seen: 04/28/24 09:17 Interval history: feels good, bob diet, +bowel fxn Review of Systems Review of Systems: All systems reviewed & are unremarkable except as noted in HPI and below Exam Const: General: cooperative, comfortable and no acute distress Resp: Auscultation: clear to auscultation bilaterally Cardio: Rate: regular rate Rhythm: regular rhythm GI: Inspection: normal to inspection and non-distended GI Palp: No abdominal tenderness and Yes Soft to palpation Objective Data Vital Signs Vital Signs: Vital Signs - 24 hr 04/27/24 14:00 04/27/24 21:25 04/27/24 20:00 Temperature 36.1 C L 36.5 C Pulse Rate 68 62 Respiratory Rate 18 16 Blood Pressure 145/68 H 132/77 Pulse Oximetry 99 100 Oxygen Delivery Room Air 04/28/24 06:00 Temperature 36.2 C L Pulse Rate 46 L Respiratory Rate 16 Blood Pressure 151/89 H Pulse Oximetry 99 Oxygen Delivery Intake/Output Intake/Output: Intake & Output 04/25/24 04/26/24 04/27/24 04/28/24 23:59 23:59 23:59 23:59 Intake Total 1000 3000 2480 1380 Balance 1000 3000 2480 1380 Meds/Results Medications: Active Medications Generic Name Dose Route Start Last Admin Trade Name Freq PRN Reason Stop Dose Admin Albuterol 2.5 mg 04/25/24 21:41 Albuterol Sulfate Neb 2.5 Mg/3 Ml Inh INHALATION Q4HRT PRN Shortness Of Breath Enoxaparin Sodium 40 mg 04/26/24 15:00 04/27/24 09:10 Enoxaparin 40 Mg/0.4 Ml Syringe SUB-Q 40 mg DAILY PAULA Administration Famotidine 20 mg 04/25/24 21:00 04/27/24 20:21 Famotidine 20 Mg/2 Ml Vial IV PUSH 20 mg Q12HR PAULA Administration Hydromorphone HCl 0.5 mg 04/25/24 22:00 04/28/24 03:50 Hydromorphone Hcl Inj (*Crx) 1 Mg/Ml Syr IV PUSH 0.5 mg Q3H PRN Administration Pain Rated 7-10 Lactated Ringer's 1,000 mls @ 125 mls/hr 04/25/24 17:25 04/28/24 04:59 Lr - Lactated Ringers Iv IV CONT 125 mls/hr .Q8H PAULA Administration Methylprednisolone Sodium Succinate 40 mg 04/26/24 07:40 04/27/24 20:20 Methylprednisolone Sod Succ 40 Mg Vial IV PUSH 40 mg Q12HR PAULA Administration Ondansetron HCl 4 mg 04/25/24 17:21 04/26/24 21:41 Ondansetron Inj 4 Mg/2 Ml Vial IV PUSH 4 mg Q4H PRN Administration Nausea Tramadol HCl 50 mg 04/26/24 11:03 04/28/24 04:59 Tramadol Hcl (*Crx) 50 Mg Tablet PO 50 mg Q6H PRN Administration Pain Rated 4-6 Radiology Results: ITS Impressions Abdomen/Pelvis CT 04/25/24 15:51 IMPRESSION: 1. Thickened wall of the small bowel. Infection and ischemia in the differential. Crohn's disease cannot be excluded. Clinical correlation advised. Dilatation is noted suggestive of obstruction. 2. Left kidney stones. 3. Uterine fibroid. Labs Labs: Laboratory Results - last 24 hr 04/28/24 06:36 WBC 7.2 RBC 4.37 Hgb 10.9 L Hct 35.3 L MCV 80.8 MCH 24.9 L MCHC 30.9 L RDW 18.6 H Plt Count 283 MPV 9.8 Sodium 135 L Potassium 4.1 Chloride 102 Carbon Dioxide 26 Anion Gap 7 BUN 14 Creatinine 0.60 L Estim Creat Clear Calc 141 Estimated GFR > 60 Glucose 132 H Calcium 9.2 Magnesium 1.7
[2024-04-28] MEDS: ENOXAPARIN 40 MG/0.4 ML SYRINGE SUB-Q (09:30)
[2024-04-28] MEDS: methylPREDNISolone SOD SUCC 40 MG VIAL IV PUSH ×2 (09:30→21:18)
[2024-04-28] MEDS: FAMOTIDINE 20 MG/2 ML VIAL IV PUSH ×2 (09:30→21:18)
--- NOTE | 2024-04-28 09:51 | WPDGIPROGNO ---
Progress Note: A&P Assessment and Plan (1) Small bowel obstruction: Code(s): K56.609 - Unspecified intestinal obstruction, unspecified as to partial versus complete obstruction Status: Acute Assessment and Plan: Patient with resolving partial SBO secondary to Crohn's exacerbation, with extensive compromise of the small bowel. She will go home with Prednisone 40 mg qD with taper to be continued as an outpatient. Stela already ordered, will apply next dose as soon as she gets it, therefore modifying interval from q8 to q4 weeks. (2) Crohn's disease of small intestine with complication: Code(s): K50.019 - Crohn's disease of small intestine with unspecified complications Status: Acute Subjective Date/time seen: 04/28/24 09:51 Interval history: Pt feels much better ( great ), tolerated bland diet and has no abdominal pain. Exam Const: General: comfortable GI: GI Palp: Yes Soft to palpation, No Tenderness to palpation present (GI) and No Guarding due to palpation present (GI) Auscultation: normal bowel sounds Objective Data Vital Signs Vital Signs: Vital Signs - 24 hr 04/27/24 14:00 04/27/24 21:25 04/27/24 20:00 Temperature 97.0 F L 97.7 F Pulse Rate 68 62 Respiratory Rate 18 16 Blood Pressure 145/68 H 132/77 Pulse Oximetry 99 100 Oxygen Delivery Room Air 04/28/24 06:00 Temperature 97.2 F L Pulse Rate 46 L Respiratory Rate 16 Blood Pressure 151/89 H Pulse Oximetry 99 Oxygen Delivery Intake/Output Intake/Output: Intake & Output 04/25/24 04/26/24 04/27/24 04/28/24 23:59 23:59 23:59 23:59 Intake Total 1000 3000 2480 1380 Balance 1000 3000 2480 1380 Meds/Results Medications: Active Medications Generic Name Dose Route Start Last Admin Trade Name Freq PRN Reason Stop Dose Admin Albuterol 2.5 mg 04/25/24 21:41 Albuterol Sulfate Neb 2.5 Mg/3 Ml Inh INHALATION Q4HRT PRN Shortness Of Breath Enoxaparin Sodium 40 mg 04/26/24 15:00 04/28/24 09:30 Enoxaparin 40 Mg/0.4 Ml Syringe SUB-Q 40 mg DAILY PAULA Administration Famotidine 20 mg 04/25/24 21:00 04/28/24 09:30 Famotidine 20 Mg/2 Ml Vial IV PUSH 20 mg Q12HR PAULA Administration Hydromorphone HCl 0.5 mg 04/25/24 22:00 04/28/24 09:37 Hydromorphone Hcl Inj (*Crx) 1 Mg/Ml Syr IV PUSH 0.5 mg Q3H PRN Administration Pain Rated 7-10 Lactated Ringer's 1,000 mls @ 125 mls/hr 04/25/24 17:25 04/28/24 04:59 Lr - Lactated Ringers Iv IV CONT 125 mls/hr .Q8H PAULA Administration Methylprednisolone Sodium Succinate 40 mg 04/26/24 07:40 04/28/24 09:30 Methylprednisolone Sod Succ 40 Mg Vial IV PUSH 40 mg Q12HR PAULA Administration Ondansetron HCl 4 mg 04/25/24 17:21 04/26/24 21:41 Ondansetron Inj 4 Mg/2 Ml Vial IV PUSH 4 mg Q4H PRN Administration Nausea Tramadol HCl 50 mg 04/26/24 11:03 04/28/24 04:59 Tramadol Hcl (*Crx) 50 Mg Tablet PO 50 mg Q6H PRN Administration Pain Rated 4-6 Radiology Results: ITS Impressions Abdomen/Pelvis CT 04/25/24 15:51 IMPRESSION: 1. Thickened wall of the small bowel. Infection and ischemia in the differential. Crohn's disease cannot be excluded. Clinical correlation advised. Dilatation is noted suggestive of obstruction. 2. Left kidney stones. 3. Uterine fibroid. Labs Labs: Laboratory Results - last 24 hr 04/28/24 06:36 WBC 7.2 RBC 4.37 Hgb 10.9 L Hct 35.3 L MCV 80.8 MCH 24.9 L MCHC 30.9 L RDW 18.6 H Plt Count 283 MPV 9.8 Sodium 135 L Potassium 4.1 Chloride 102 Carbon Dioxide 26 Anion Gap 7 BUN 14 Creatinine 0.60 L Estim Creat Clear Calc 141 Estimated GFR > 60 Glucose 132 H Calcium 9.2 Magnesium 1.7
--- NOTE | 2024-04-28 10:48 | PC.NURSE ---
RN checked on pt and assessed pain again and pt states pain is 2 right now.
[2024-04-28 14:00] VITALS: BP 130/80; PULSE 52; RESP 16; TEMP 36.2; O2SAT 98
--- NOTE | 2024-04-28 14:51 | WPDPN ---
Progress Note: A&P Assessment and Plan (1) Small bowel obstruction: Code(s): K56.609 - Unspecified intestinal obstruction, unspecified as to partial versus complete obstruction Status: Acute Assessment and Plan: Patient presents with abdominal pain. CT of the abdomen/pelvis shows thickened wall of small bowel with proximal dilation. Suspect she has partial small-bowel obstruction related to focal inflammation from Crohn's. GI consulted. General surgery consulted. Will start steroids in the form of Solu-Medrol. Discussed with GI. Continue IV fluids. Bowel rest. Place NG tube if symptoms worsen. 44-year-old female with history of Crohn disease admitted with a partial small-bowel obstruction secondary to exacerbation of the disease patient is being treated with steroid and pain is controlled with Dilaudid and tramadol patient was seen by GI patient clinical symptoms have improved and recommended to start the patient on clear liquids advance diet as tolerate, patient will be discharged on tapering dose prednisone 40mg PO q daily, patient clinical symptoms improved seen by general surgery recommended to continue to advance her diet as tolerated continue present management. (2) Crohn's disease: Qualifiers: Digestive disease complication type: with intestinal obstruction Gastrointestinal tract location: small intestine Qualified Code(s): K50.012 - Crohn's disease of small intestine with intestinal obstruction Code(s): K50.90 - Crohn's disease, unspecified, without complications Status: Acute Assessment and Plan: As above. (3) Hypertension: Code(s): I10 - Essential (primary) hypertension Status: Chronic Assessment and Plan: Patient's blood pressure was reviewed on 04/26 Blood pressure remains well controlled. Will continue to monitor (4) Tobacco abuse: Code(s): Z72.0 - Tobacco use Status: Chronic Assessment and Plan: She was educated about the benefits of smoking cessation. Plan DVT prophylaxis -Lovenox Code status -full Subjective Date/time seen: 04/28/24 14:51 Interval history: 44-year-old female with history of Crohn disease admitted with a partial small-bowel obstruction secondary to exacerbation of the disease patient is being treated with steroid and pain is controlled with Dilaudid and tramadol patient was seen by GI patient clinical symptoms have improved and recommended to start the patient on clear liquids advance diet as tolerate, patient will be discharged on tapering dose prednisone 40mg PO q daily, patient clinical symptoms improved seen by general surgery recommended to continue to advance her diet as tolerated continue present management. Review of Systems Review of Systems: 12 systems were reviewed and are negative except for as per HPI. Exam Narrative: morbidly obese Patient is comfortable, NAD HEENT: eyes are clear and none icteric Chest: no retraction ABD: Distended Lower extremities: no edema SKIN: nonjaundiced Neuro: grossly intact. Objective Data Vital Signs Vital Signs: Vital Signs - 24 hr 04/27/24 21:25 04/27/24 20:00 04/28/24 06:00 Temperature 36.5 C 36.2 C L Pulse Rate 62 46 L Respiratory Rate 16 16 Blood Pressure 132/77 151/89 H Pulse Oximetry 100 99 Oxygen Delivery Room Air Fraction of Inspired Oxygen 04/28/24 08:00 Temperature Pulse Rate Respiratory Rate Blood Pressure Pulse Oximetry Oxygen Delivery Room Air Fraction of Inspired Oxygen 21 Intake/Output Intake/Output: Intake & Output 04/25/24 04/26/24 04/27/24 04/28/24 23:59 23:59 23:59 23:59 Intake Total 1000 3000 2480 2380 Balance 1000 3000 2480 2380 Meds/Results Medications: Active Medications Generic Name Dose Route Start Last Admin Trade Name Freq PRN Reason Stop Dose Admin Albuterol 2.5 mg 04/25/24 21:41 Albuterol Sulfate Neb 2.5 Mg/3 Ml Inh INHALATIO
[2024-04-28 21:53] VITALS: BP 153/80; PULSE 60; RESP 16; TEMP 36.3; O2SAT 100
[2024-04-29] MEDS: HYDROmorphone HCL INJ (*CRX) 1 MG/ML SYR 0.5 MG IV PUSH (01:32)
[2024-04-29] MEDS: LACTATED RINGERS 1,000 ML 125 ML IV CONT (05:28)
[2024-04-29] MEDS: traMADol HCL (*CRX) 50 MG TABLET PO (05:53)
[2024-04-29 06:00] VITALS: PULSE 62; RESP 20; TEMP 36.1; O2SAT 100
[2024-04-29 06:11] VITALS: BP 174/88
[2024-04-29 06:41] LABS: Hematocrit 35.5 % (37.0-47.0); Hemoglobin 11.1 g/dL (12.0-15.0); Mean Corpuscular HGB Conc 31.3 g/dl (32-36); Mean Corpuscular Hemoglobin 25.3 pg (26-34); Mean Corpuscular Volume 81.1 fl (80-100); Mean Platelet Volume 9.7 fl (7.4-10.4); Platelet Count Result 317 k/mm3 (150-375); Red Blood Count 4.38 M/mm3 (4.2-5.4); Red Cell Distribution Width 18.7 % (11.5-14.5); White Blood Count 7.5 K/mm3 (4.5-10.0)
[2024-04-29 06:57] LABS: Anion Gap 6 mmol/L (4-12); Blood Urea Nitrogen 16 mg/dL (7-17); Calcium 9.2 mg/dL (8.4-10.2); Carbon Dioxide 27 mmol/L (22-30); Chloride 103 mmol/L (98-107); Estimated CRCL calculation 123 ml/min; Estimated Glomerular Filt Rate > 60; Glucose 139 mg/dL (65-110); Magnesium 1.8 mg/dL (1.6-2.3); Potassium 4.1 mmol/L (3.4-5.0); Sodium 136 mmol/L (137-145)
[2024-04-29] MEDS: FAMOTIDINE 20 MG/2 ML VIAL IV PUSH (08:13)
[2024-04-29] MEDS: ENOXAPARIN 40 MG/0.4 ML SYRINGE SUB-Q (08:13)
[2024-04-29] MEDS: methylPREDNISolone SOD SUCC 40 MG VIAL IV PUSH (08:13)
--- NOTE | 2024-04-29 11:47 | PM.DS ---
DS: Admitting Diagnosis Discharge Date 04/29/24 Admitting Diagnosis Abdominal pain. DS: Discharge Diagnosis Discharge Diagnosis (1) Small bowel obstruction: Code(s): K56.609 - Unspecified intestinal obstruction, unspecified as to partial versus complete obstruction Status: Acute (2) Hypertension: Code(s): I10 - Essential (primary) hypertension Status: Chronic (3) Crohn's disease: Qualifiers: Digestive disease complication type: with intestinal obstruction Gastrointestinal tract location: small intestine Qualified Code(s): K50.012 - Crohn's disease of small intestine with intestinal obstruction Code(s): K50.90 - Crohn's disease, unspecified, without complications Status: Acute (4) Tobacco abuse: Code(s): Z72.0 - Tobacco use Status: Chronic DS: Summary Hospital Course Hospital Course: 44-year-old female with history of Crohn disease admitted with a partial small-bowel obstruction secondary to exacerbation of the disease patient was treated with steroid and pain is controlled with Dilaudid and tramadol patient was seen by GI patient clinical symptoms have improved and recommended to start the patient on clear liquids advance diet as tolerate, patient is tolerating her diet and her pain has improved, GI is recommedinsg to discharge today witht two weeks of prednisone 40mg PO q daily and patient will follow up with the GI in 2 weeks. patient clinical symptoms improved was also seen by general surgery recommended to continue to advance her diet as tolerated, will discharge patient today. Time Spent with Patient Time attestation: Total time spent providing and/or coordinating discharge services: Exam Narrative: morbidly obese Patient is comfortable, NAD HEENT: eyes are clear and none icteric Chest: no retraction ABD: Distended Lower extremities: no edema SKIN: nonjaundiced Neuro: grossly intact. DS: Data Data Completed and Pending Labs on day of discharge: Labs from last 24 hours 04/29/24 06:36 WBC 7.5 RBC 4.38 Hgb 11.1 L Hct 35.5 L MCV 81.1 MCH 25.3 L MCHC 31.3 L RDW 18.7 H Plt Count 317 MPV 9.7 Sodium 136 L Potassium 4.1 Chloride 103 Carbon Dioxide 27 Anion Gap 6 BUN 16 Creatinine 0.70 Estim Creat Clear Calc 123 Estimated GFR > 60 Glucose 139 H Calcium 9.2 Magnesium 1.8 Discharge Plan Discharge Attending physician on discharge: Dino Rajput Consulting providers: Addie Rainey; Jamel Castillo; Jacquelyn Ceron; Adrian Doll; Sherwin Frazier; Juliana Francois Discharging Clinician: Jame Gatica Patient Disposition: Home, Self-Care Activity: as tolerated Diet: low fiber Discharge Instructions: patient to follow up with her GI in 2 weeks, patient to follow up with her primary care provider as soon as possible. patient is instructed if any symptoms worsen to go to nearest ER. Patient Instructions: Antibiotic Form, How to Stop Smoking (DC) Stand Alone Forms: General Discharge Information, Work/School Release IP Follow-up/Referrals: Keith Silva MD [Primary Care Provider] - Adrian Doll MD [Physician] - 2 Weeks (Please call [phone] to schedule follow-up appointment for 2 weeks from now.) Discharge Medications: New tramadol 50 mg Tablet 50 mg PO Q6H PRN (Reason: Pain Rated 4-6) Qty: 30 0RF prednisone 10 mg tablet 40 mg PO DAILY Qty: 56 0RF Continued (DME) nebulizers [Altera Nebulizer System] Misc See Rx Instructions .Route Qty: 1 0RF Rx Instructions: As directed ondansetron HCl 4 mg tablet 4 mg PO Q8H PRN (Reason: Nausea And Vomiting) amlodipine 10 mg tablet 10 mg PO DAILY hydrochlorothiazide 25 mg tablet 25 mg PO DAILY albuterol sulfate 0.63 mg/3 mL solution for nebulization 0.63 mg inhalation Q4H PRN (Reason: Shortness Of Breath) dicyclomine 10 mg capsule 10 m
== END 2024-04-29 12:15 | disposition home or self-care (01) | DRG 386 ==
LOC: ANHED 17:56 → ANH3MEDSUR 18:58
PROVIDERS: Internal Medicine; Physician Assistant; Preventive Medicine Aerospace Medicine; Admitting Provider General Practice; Emergency Provider Emergency Medicine; PCP Family Medicine; Visit Provider Family Medicine
DX: K50.012 Crohn's disease of small intestine with intestinal obstruction (principal); Z68.43 Body mass index [BMI] 50.0-59.9, adult; I10 Essential (primary) hypertension; J45.909 Unspecified asthma, uncomplicated; K21.9 Gastro-esophageal reflux disease without esophagitis; K76.0 Fatty (change of) liver, not elsewhere classified; E66.01 Morbid (severe) obesity due to excess calories; F17.210 Nicotine dependence, cigarettes, uncomplicated; F41.9 Anxiety disorder, unspecified; F12.90 Cannabis use, unspecified, uncomplicated; Z87.442 Personal history of urinary calculi
CPT/HCPCS: 36415; 74177; 80048; 80053; 81001; 81025; 83605; 83690; 83735; 85025; 85027; 86140; 96361; 96374; 96375; 99285; A9270; J1171; J1200; J1650; J2405; J2765; J2919; J7120; Q9967

== ENCOUNTER 2024-11-06 04:21 | Emergency (ER) | payer OTHER, SELFPAY ==
--- NOTE | ~2024-11-06 | CT_ITS ---
CT of the Abdomen and Pelvis: Indication: Abdominal pain Technique: 2.5 mm axial scans were obtained through the abdomen and pelvis following intravenous adm inistration of 100 cc of Omnipaque 350. Dose reduction technique was used on this scan by utilizing a utomated exposure control and iterative reconstruction technique. The dose-length product (DLP) was 1 803.93 mGy-cm. COMPARISON: 07/25/2024 Findings: Scans through the lung bases are unremarkable. The liver, spleen, pancreas, right adrenal gland, and right kidney are within normal limits. Cholecys tectomy clips are present. 1.5 cm left adrenal nodule present. There stones at the left upper renal p ole, largest measuring 8 mm. No evidence of aortic aneurysm. No lymphadenopathy. There is extensive wall thickening of multiple small bowel loops with mild distention. Large bowel ar e unremarkable. Images through the pelvis were performed. Urinary bladder unremarkable. 5 cm uterine fibroid present. No other adnexal mass evident. No ascites. Impression: Extensive wall thickening of multiple small bowel with mild distention. Findings are consistent with nonspecific small bowel enteritis. Nonobstructing left nephrolithiasis, as above. 1.5 cm left adrenal nodule, unchanged. Reviewed, dictated and finalized at location . Impression: Extensive wall thickening of multiple small bowel with mild distention. Finding s are consistent with nonspecific small bowel enteritis. Nonobstructing left nephrolithiasis, as above. 1.5 cm left adrenal nodule, unchanged.
--- OUTSIDE RECORDS SUMMARY | 2024-11-06 04:24 | XMS_ITS | Encounter Summary ---
Author Organization [facility] Address [facility] [place] [address] Care Team Providers Care Relocation Specialist Name Role Phone Keith Silva MD Primary Care Provider + [phone] Encounter Details Date Type Department Care Team (Late st Contact Info) Description 11/02/[address] [facility] [place] [address] Alfa Marrero, DO Social History Tobacco Use Types Packs/Day Years Used Date Smoking Tobacco: Light Smoker Cigarettes Smokeless Tobacco: Never Alcohol Use Standard Drinks/Week Comments Yes 0 (1 standard drink = 0.6 oz pur e alcohol) socially Humiliation, Afraid, Rape, and Kick questionnair e Answer Date Recorded Within the last year, have y ou been afraid of your partner or ex-partner? No 04/21/2021 Within the last year, have y ou been humiliated or emotionally abused in other ways by your partner or ex-partner? No Within the last year, have y ou been kicked, hit, slapped, or otherwise physically hurt by your partner or ex-partner? No 04/21/2021 Within the last year, have y ou been raped or forced to have any kind of sexual activity by your partner or ex-partner? No 04/21/2021 Social Connection and Isolat ion Panel [NHANES] Answer Date Recorded In a typical week, how many times do you talk on the phone with family, friends, or neighbors? More than three times a week 04/21/2021 How often do you get togethe r with friends or relatives? Never 04/21/2021 How often do you attend chur ch or mu-ism services? Never 04/21/2021 Do you belong to any clubs o r organizations such as episcopal groups, unions, fraternal or athletic groups, or school groups? No 04/21/2021 How often do you attend meet ings of the clubs or organizations you belong to? Never 04/21/2021 Are you , , di vorced, , never , or living with a partner? 04/21/2021 AUDIT-C Answer Date Recorded Q1: How often do you have a drink containing alc ohol? Never 04/21/2021 Average Number of Drinks Not on file 021 Q3: How often do you have si x or more drinks on one occasion? Never 04/21/2021 Overall Financial Resource Strain (CARDIA) Answe r Date Recorded How hard is it for you to pa y for the very basics like food, housing, medical care, and heating? Not hard at all 04/21/2021 PHQ-2 Answer Date Recorded PHQ-2 Score - If the patient scores above 3, please move on to questions 3-9 0 04/21/2021 [facility] - Occupational Stress Questionnaire Answer Date Recorded Do you feel stress - tense, restless, nervous, or anxious, or unable to sleep at night because your mind is troubled all the time - these days? Only a little 04/21/2021 Exercise Vital Sign Answer Date Recorde d On average, how many days pe r week do you engage in moderate to strenuous exercise (like a brisk walk)? 0 days 04/21/2021 On average, how many minutes do you engage in exercise at this level? 0 min 04/21/2021 Hunger Vital Sign Answer Date Recorded Within the past 12 months, y ou worried that your food would run out before you got the money to buy more. Never true 04/21/20 21 Within the past 12 months, t he food you bought just didn't last and you didn't have money to get more. Never true 04/21/2021 PRAPARE - Transportation Answer Date Re corded In the past 12 months, has l ack of transportation kept you from medical appointments or from getting medications? No 12/2020 In the past 12 months, has l ack of transportation kept you from meetings, work, or from getting things needed for daily living? No 04/21/2021 Housing Stability Vital Sign Answer Avinash e Recorded In the last 12 months, was t here a time when you were not able to pay the mortgage or rent on time? No 04/21/2021 In the last 12 months, how many places have you lived? 1 04/21/2021 In the last 12 months, was t here a time when you did not have a steady place to sleep or slept in a fdc (including now)? No 04/21/2021 Comments No Sex and Gender Information Value Date Recorded Sex Assigned at Female 04/21/2021 8:57 PM CDT Legal Sex Female 11:34 PM CDT Gender Identity Female 04/21/2021 8:57 PM CDT Sexual Orientation Not on file COVID-19 Exposure Response Date Recorded In the last 10 days, have yo u been in contact with someone who was confirmed or suspected to have Coronavirus/COVID-19? No / Unsure 11/02/2021 5:04 AM CDT documented as of this encounter Functional Status * RETIRED Are you deaf or do you have serious difficulty hearing Answer Date of Assessment Author Status No 08/12/2021 11:04 AM RADIATION ENGINEER Acti ve * RETIRED Are you blind or do you have serious difficulty seeing, even when wearing glasses? Answer Date of Assessment Author Status No 08/12/2021 11:04 AM RADIATION ENGINEER Acti ve * Do you have serious difficulty walking or climbing stairs? Answer Date of Assessment Author Status No 08/12/2021 11:04 AM RADIATION ENGINEER Kiara Mir RN Active * Do you have difficulty dressing or bathing? Answer Date of Assessment Author Status No 08/12/2021 11:04 AM Kiara Marinelli RN Active * Because of a physical, mental, or emotional condition, do you have difficulty doing errands alone such as visiting a doctor's office or shopping? Answer Date of Assessment Author Status No 08/12/2021 11:04 AM Kiara Marinelli RN Active * Calculated C-SSRS Risk Score (Lifetime/Recent) Answer Date of Assessment Author Status No Risk Indicated 11/02/2021 5:24 AM CDT Gabi Godinez RN Active * [place] Suicide Severity Rating Scale (Screener/Recent Self-Report) Question Answer Date of Assessment Author Status 1. Wish to be (Past 1 Month) No 11/02/2021 5:24 AM CDT Gabi Godinez RN Activ e 2. Non-Specific Active Suicidal Thoughts (Past 1 Month) No 11/02/2021 5:24 AM CDT Gabi Godinez RN Activ e 6. Suicidal Behavior (Lifetime) No 11/02/2021 5:24 AM CDT Gabi Godinez RN Activ e documented as of this encounter Mental Status * Because of a physical, mental, or emotional condition, do you have serious difficulty concentrating, remembering, or making decisions? Answer Entry Date Author Status No 08/12/2021 11:04 AM RADIATION ENGINEER Kiara Mir RN Active documented in this encounter Plan of Treatment Not on file documented as of this encounter Goals Goal Patient Goal Type Associated Problems Recent Progress Patient-Stated? Author Safety - demonstrates understanding of home safety measures General No Sinai Taylor RN Safety - demonstrates understanding of home safety measures General No Sinai Taylor RN Safety Patient/family will have appropriate support at home upon discharge General No Mei Farmer RN documented as of this encounter Results * CORONAVIRUS (COVID 19) (10/29/2021 9:56 AM CDT) SPEC DESCRIPTION NASAL 10/30/19 10:00 AM CDT [facility] CORONAVIRUS SARS COV 2 PCR (RESP) NEGATIVE NEGATIVE 10/29/2021 9:08 PM CDT [facility] Comment: THE SARS-CoV-2 TEST HAS BEEN AUTHORIZED BY THE FDA UNDER AN EUA FOR USE BY AUTHORIZED LABORATORIES. PERFORMED BY NUCLEIC ACID AMPLIFICATION PCR FIRST TEST NO 10/29/2021 10:00 AM CDT [facility] EMPLOYED IN HEALTHCARE NO 10/29/2021 10:00 AM CDT [facility] SYMPTOMATIC DEFINED BY CDC NO 10/29/2021 10:00 AM CDT [facility] HOSPITALIZATION STATUS NO 10/29/2021 10:00 AM CDT [facility] PATIENT IN ICU NO 10/29/2021 10:00 AM CDT [facility] RESIDENT OF CRITICAL ACCESS HOSPITAL CARE NO 10/29/2021 10:00 AM CDT [facility] NOT 10/29/2021 10:00 AM CDT [facility] NASAL STRUCTURE / Unknown 10/29/2021 9:56 AM CDT Alfa Marrero DO MICROBIOLOGY - GENERAL ORDERABL ES Final Result [facility] [address] [place] [address], [place] [phone] [facility] [address] [id number], [place] [phone] documented in this encounter Visit Diagnoses Diagnosis Colitis- Primary Other and unspecified noninfectious gastroenteritis and colitis documented in this encounter Additional Health Concerns Infection Onset Date Last Indicated Resolved Time Norovirus 05/08/2023 05/08/2023 06/05/2023 12:3 2 AM RADIATION ENGINEER COVID-19 Rule Out 09/07/2023 09/07/2023 09/07/2023 12:45 PM RADIATION ENGINEER COVID-19 Rule Out 09/08/2023 09/08/2023 09/08/2023 6:46 PM RADIATION ENGINEER Assessment Noted Time PHQ-9 Depression Total Score: 0 04/21/20 1:26 PM CDT documented as of this encounter Care Teams Relocation Specialist Relationship Specialty Start Date End Date Keith Silva MD [address] [place] [address] PCP - General FAMILY PRACTICE 11/15/20 documented as of this encounter
--- OUTSIDE RECORDS SUMMARY | 2024-11-06 04:24 | XMS_ITS | Encounter Summary ---
Author Organization [facility] Address [facility] [id number] Care Team Providers Care Top Installer Name Role Phone Keith Silva MD Primary Care Provider [phone] Reason for Visit * Reason Onset Date Comments Pre-op Question(s) 10/25/2023 Encounter Details Date Type Department Care Team (Late st Contact Info) Description 10/25/2023 Pre-Procedure Call [facility] End[facility]GI [address] [address] Bladimir Claudio MD [address] [place] [phone] Pre-op Question(s) Social History Tobacco Use Types Packs/Day Years Used Date Smoking Tobacco: Light Smoker Cigarettes Smokeless Tobacco: Never Tobacco Cessation:Ready to Q uit: Not Asked; Counseling Given: Not Answered Alcohol Use Standard Drinks/Week Comments Yes 0 (1 standard drink = 0.6 oz pur e alcohol) socially [facility] Utilities Answer Date Recorded In the past 12 months has [employer], [employer], oil, or water [employer] threatened to shut off services in your home? No 09/22/2023 Humiliation, Afraid, Rape, and Kick questionnair e Answer Date Recorded Within the last year, have y ou been afraid of your partner or ex-partner? No 09/22/2023 Within the last year, have y ou been humiliated or emotionally abused in other ways by your partner or ex-partner? No Within the last year, have y ou been kicked, hit, slapped, or otherwise physically hurt by your partner or ex-partner? No 09/22/2023 Within the last year, have y ou been raped or forced to have any kind of sexual activity by your partner or ex-partner? No 09/22/2023 Social Connection and Isolat ion Panel [NHANES] Answer Date Recorded In a typical week, how many times do you talk on the phone with family, friends, or neighbors? More than three times a week 09/22/2023 How often do you get togethe r with friends or relatives? Once a week 09/22/2023 How often do you attend chur ch or methodist services? Never 09/22/2023 Do you belong to any clubs o r organizations such as temple groups, unions, fraternal or athletic groups, or school groups? No 09/22/2023 How often do you attend meet ings of the clubs or organizations you belong to? Never 09/22/2023 Are you , , di vorced, , never , or living with a partner? 09/22/2023 AUDIT-C Answer Date Recorded Q1: How often do you have a drink containing alc ohol? 2-4 times a month 09/22/2023 Q2: How many drinks containi ng alcohol do you have on a typical day when you are drinking? 3 or 4 09/22/2023 Q3: How often do you have si x or more drinks on one occasion? Never 09/22/2023 Overall Financial Resource Strain (CARDIA) Answe r Date Recorded How hard is it for you to pa y for the very basics like food, housing, medical care, and heating? Not hard at all 09/22/2023 PHQ-2 Answer Date Recorded Patient Health Questionnaire-2 Score 3 09/22/2023 [facility] - Occupational Stress Questionnaire Answer Date Recorded Do you feel stress - tense, restless, nervous, or anxious, or unable to sleep at night because your mind is troubled all the time - these days? To some extent 09/22/2023 Exercise Vital Sign Answer Date Recorde d On average, how many days pe r week do you engage in moderate to strenuous exercise (like a brisk walk)? 7 days 09/22/2023 On average, how many minutes do you engage in exercise at this level? 20 min 09/22/2023 Hunger Vital Sign Answer Date Recorded Within the past 12 months, y ou worried that your food would run out before you got the money to buy more. Never true 09/22/19 24 Within the past 12 months, t he food you bought just didn't last and you didn't have money to get more. Never true 09/22/2023 PRAPARE - Transportation Answer Date Re corded In the past 12 months, has l ack of transportation kept you from medical appointments or from getting medications? No 02/2024 In the past 12 months, has l ack of transportation kept you from meetings, work, or from getting things needed for daily living? No 09/22/2023 Housing Stability Vital Sign Answer Avinash e Recorded In the last 12 months, was t here a time when you were not able to pay the mortgage or rent on time? No 09/22/2023 In the last 12 months, how many places have you lived? 1 09/22/2023 In the last 12 months, was t here a time when you did not have a steady place to sleep or slept in a senior care (including now)? No 09/22/2023 Comments No Sex and Gender Information Value Date Recorded Sex Assigned at Female 04/21/2021 8:57 PM CDT Legal Sex Female 11:34 PM CDT Gender Identity Female 04/21/2021 8:57 PM CDT Sexual Orientation Not on file Occupation Industry Job Start Date Job End Date [employer] Not on file Not on file Not on file documented as of this encounter Functional Status * Are you deaf or do you have serious difficulty hearing Answer Date of Assessment Author Status No 09/22/2023 1:05 PM Yasmin Tena RN Active * Are you blind or do you have serious difficulty seeing, even when wearing glasses? Answer Date of Assessment Author Status No 09/22/2023 1:05 PM Yasmin Tena RN Active * Do you have serious difficulty walking or climbing stairs? Answer Date of Assessment Author Status No 09/22/2023 1:05 PM Yasmin Tena, WILMAN Active * Do you have difficulty dressing or bathing? Answer Date of Assessment Author Status No 09/22/2023 1:05 PM RECEIVING COORDINATOR Greiff, Yasmin D, RN Active * Because of a physical, mental, or emotional condition, do you have difficulty doing errands alone such as visiting a doctor's office or shopping? Answer Date of Assessment Author Status No 09/22/2023 1:05 PM RECEIVING COORDINATOR Yasmin Whitley RN Active documented as of this encounter Mental Status * Because of a physical, mental, or emotional condition, do you have serious difficulty concentrating, remembering, or making decisions? Answer Entry Date Author Status No 09/22/2023 1:05 PM Yasmin Tena RN Active documented in this encounter Plan [...] upon discharge General No Mei Farmer RN Patient will return to prior living situation and remain independent in ADLs upon discharge from hospital Lifestyle No Lashae Howard MSW documented as of this encounter Visit Diagnoses Not on filedocumented in this encounter Additional Health Concerns Assessment Noted Time PHQ-9 Depression Total Score: 15 024 8:40 AM RECEIVING COORDINATOR documented as of this encounter Care Teams Top Installer Relationship Specialty Start Date End Date Keith Silva MD [address] [place] [address] PCP - General FAMILY PRACTICE 11/15/20 documented as of this encounter
--- OUTSIDE RECORDS SUMMARY | 2024-11-06 04:24 | XMS_ITS | Clinical Summary ---
Author Organization [facility] Address [address] [place] [address] Care Team Providers Care Nonprofit Manager Name Role Phone Keith Silva MD Primary Care Provider Allergies Active Allergy Reactions Criticality Noted Date Comments Ciprofloxacin Rash Low 10/25/2023 Fluconazole Nausea and Vomiting 03/01/2022 Morphine Vomiting,GI Upset 11/15/2020 Nickel Rash Low 10/25/2023 Penicillins Rash,GI Upset Medium 10/24/2010 - - - - Sulfadiazine Rash Low 10/25/2023 Medications HUMIRA PEN 40 MG/0.4ML pen-injector kit Inject 0.4 mLs (40 mg total) into the skin every 14 (fourteen) days. 01/12/2022 Active amLODIPine (NORVASC) 10 MG tablet Take 1 tablet (10 mg total) by mouth daily. Active omeprazole (PRILOSEC) 20 MG capsule Take 1 capsule (20 mg total) by mouth daily. Active albuterol sulfate HFA 108 (90 Base) MCG/ACT inhaler Inhale 2 puffs into the lungs every 6 (six) hours as needed for Wheezing. 18 g 09/07/2023 Active ondansetron (ZOFRAN) 4 MG tablet Take 1 tablet (4 mg total) by mouth every 8 (eight) hours as needed for Nausea. 20 tablet 09/08/2023 Active hydroCHLOROthia zide (HYDRODIURIL) 25 MG tablet Take 1 tablet (25 mg total) by mouth every morning. 09/19/2023 Active Active Problems Problem Noted Date Diagnosed Date Crohn's disease ([facility]) 12/09/2023 Enteritis 03/15/2022 Crohn's disease of colon wit hout complication ([facility]) 02/02/2022 Abdominal pain 02/01/2022 Exacerbation of Crohn's disease ([facility] ) 08/12/2021 Sepsis ([facility]) 05/10/2021 Microcytic anemia 01/17/2021 GERD (gastroesophageal reflux disease) 0 Overview (04/21/2021): Last Assessment & Plan: Continue PPIs. Class 3 severe obesity with serious comorbidity in adult 08/21/2019 Overview (04/21/2021): Last Assessment & Plan: Increases her overall morbidity and mortality. Exacerbation of Crohn's dise ase of small intestine ([facility]) 08/21/2019 Overview (04/21/2021): Last Assessment & Plan: Continue IV fluids, steroids and antibiotics. Per GI consultation during her last hospitalization last month, anticipating outpatient MRI enterography, prior to initiating Humira or Remicade. Tobacco dependence 08/21/2019 Overview (04/21/2021): Last Assessment & Plan: Counseled to quit on admission. Acute Crohn's disease with i ntestinal obstruction ([facility]) 07/18/2019 Poor venous access 08/29/2018 Encounter for smoking cessation counseling 07/09 Overview (04/21/2021): Last Assessment & Plan: Smoking cessation discussed with patient for four minutes nicotine patch declined SBO (small bowel obstruction) ([facility]) 05/22/2017 Overview (04/21/2021): Last Assessment & Plan: Surgery consulted appreciate recommendations NPO Pain control Antiemetics IV fluids Patient refusing NG tube at this time Hypokalemia 05/22/2017 Overview (04/21/2021): Last Assessment & Plan: K+ 3.2, K+ protocol placed Sap Gatherer with BMP in AM Intractable abdominal pain 02/12/2017 Overview (04/21/2021): Last Assessment & Plan: Likely secondary to bowel obstruction IV Morphine 2mg Q3hr PRN Ofirmev Toradol 15mg IVP Q6hr Anxiety 02/12/2017 Overview (04/21/2021): Last Assessment & Plan: Not on home med Will do as needed meds Resolved Problems Problem Noted Date Diagnosed Date Resolved Date SBO (small bowel obstruction ) ([facility]) 01/16/2021 01/17/2021 Immunizations Immunization Administration Dates Next Due Fluzone 6 Months+ Quad (0.5 mL Prefilled Syringe) 09/22/2023,05/06/2023,04/22/2021 Family History Medical History Relation Comments No Known Problems Father No Known Problems Mother Relation Status Comments Father Alive Mother Alive Paternal Aunt colitis Social History Tobacco Use Types Packs/Day Years Used Date Smoking Tobacco: Light Smoker Cigarettes Smokeless Tobacco: Never Tobacco Cessation:Ready to Q uit: Not Asked; Counseling Given: Not Answered Alcohol Use Standard Drinks/Week Comments Yes 0 (1 standard drink = 0.6 oz pur e alcohol) socially [facility] Utilities Answer Date Recorded In the past 12 months has e [employer], oil, or water [employer] threatened to shut off services in your home? No 12/08/2023 Humiliation, Afraid, Rape, and Kick questionnair e Answer Date Recorded Within the last year, have y ou been afraid of your partner or ex-partner? No 12/08/2023 Within the last year, have y ou been humiliated or emotionally abused in other ways by your partner or ex-partner? No Within the last year, have y ou been kicked, hit, slapped, or otherwise physically hurt by your partner or ex-partner? No 12/08/2023 Within the last year, have y ou been raped or forced to have any kind of sexual activity by your partner or ex-partner? No 12/08/2023 Social Connection and Isolat ion Panel [NHANES] Answer Date Recorded In a typical week, how many times do you talk on the phone with family, friends, or neighbors? More than three times a week 09/22/2023 How often do you get togethe r with friends or relatives? Once a week 09/22/2023 How often do you attend chur epicurio or taoism services? Never 09/22/2023 Do you belong to any clubs o r organizations such as latter day groups, unions, fraternal or athletic groups, or [...] like food, housing, medical care, and heating? Somewhat hard 12/08/2023 PHQ-2 Answer Date Recorded Patient Health Questionnaire-2 Score 3 09/22/2023 [facility] - Occupational Stress Questionnaire Answer Date [...] you got the money to buy more. Sometimes true Within the past 12 months, t he food you bought just didn't last and you didn't have money to get more. Sometimes true PRAPARE - Transportation Answer Date Re corded In the past 12 months, has l ack of transportation kept you from medical appointments or from getting medications? No 11/15 In the past 12 months, has l ack of transportation kept you from meetings, work, or from getting things needed for daily living? No 12/08/2023 Housing Stability Vital Sign Answer Avinash e [...] place to sleep or slept in a jail (including now)? No 09/22/2023 Housing Stability Vital Sign Answer Avinash e Recorded In the last 12 months, was t here a time when you were not able to pay the mortgage or rent on time? No 12/08/2023 In the past 12 months, how m any times have you moved where you were living? 0 12/08/2023 At any time in the past 12 m [facility], were you homeless or living in a jail (including now)? No 12/08/2023 Comments No Sex and Gender Information Value Date Recorded Sex Assigned at Female 04/21/2021 8:57 PM CDT Legal Sex Female 11:34 PM CDT Gender Identity Female 04/21/2021 8:57 PM CDT Sexual Orientation Not on file Occupation Industry Job Start Date Job End Date [employer] Not on file Not on file Not on file Last Filed Vital Signs Vital Sign Reading Time Taken Comments Blood Pressure 132/69 02/16/2024 10:00 PM CDT Pulse 73 02/16/2024 10:00 PM CDT Temperature 36.4 C (97.6 F) 02/16/2024 8:06 PM CDT Respiratory Rate 21 02/16/2024 8:06 PM CDT Oxygen Saturation 92% 02/16/2024 10:00 PM CDT Inhaled Oxygen Concentration - - Weight 117 kg (258 lb) 02/16/2024 8:06 PM CDT Height 160 cm (5' 3 ) 02/16/2024 8:06 PM CDT Body Mass Index 45.7 02/16/2024 8:06 PM CDT Plan of Treatment Health Maintenance Due Date Last Done Comments Cervical Cancer Screening Pa p Smear (Age 30 to 64) Every 3 Years 1982 Annual Physical 1985 Hepatitis B Vaccines (1 of 3 - 19+ 3-dose series) 2001 Pneumococcal Vaccine: Pediatrics (0 to 5 Years) and At-Risk Patients (6 to 49 Years) (1 of 2 - PCV) 2001 Cervical Cancer Screening Pa p with HPV Testing (Age 30 to 64) Every 5 Years 02/27/2012 Cervical Cancer Screening wi th HPV 02/27/2012 Mammogram Screening 2022 COVID-19 Vaccine (1 - 2023-2 5 season) 2024 PHQ-2 (Physician [place]) 07/17/2024 09/22/2023 DTaP, Tdap and Td Vaccines ( 3 - Td or Tdap) 12/27/2028 12/27/2018, 08/29/2018 Hepatitis C Completed 09/23/2023, 08/09/2019 HPV Vaccines Aged Out No longer eligi ble based on patient's age to complete this topic Meningococcal B Vaccine Aged Out No l onger eligible based on patient's age to complete this topic Meningococcal Vaccine Aged Out No shelly frantz eligible based on patient's age to complete this topic RSV Immunizations Under 20 Months Aged Out No longer eligible b ased on patient's age to complete this topic Goals Goal Patient Goal Type Associated Problems Recent Progress Patient-Stated? Author Safety - demonstrates understanding of home safety measures General No Sinai Taylor, RN Safety - demonstrates understanding of home safety measures General No Sinai Taylor RN Safety Patient/family will have appropriate support at home upon discharge General No Mei Farmer, RN Patient will return to prior living situation and remain independent in ADLs upon discharge from hospital Lifestyle No Lashae Howard, ACCOUNTS PAYABLE COORDINATOR Medical Devices Implanted Type Area Electric Arc Welder Device Identifier Shelf Expiration Date Model / Serial / Lot Mesh Mesh Abdomen Pillcam Implanted:Qty: 1 on 10/30/2023 by Sera Coronado RN at [facility] 12/18/2024 / [id number] / [id number] Description:Cindy Reyes RN implanted Procedures Procedure Name Priority Date/Time Associated Diagnosis Comments HC EIA QL HEPATITIS ABC B AG Routine 09/23/2023 3:47 PM DIAPER MACHINE TENDER from Last 3 Months or Most Recently Relevant to Health Maintenance Results * HEPATITIS A,B,& C (09/23/2023 3:47 PM DIAPER MACHINE TENDER) HEPATITIS B SURFACE AG NON-REACTIVE NON-REACT CONSUELO 09/23/2023 5:44 PM DIAPER MACHINE TENDER [facility] HEP B CORE TOTAL AB NON-REACTIVE NON-REACT CONSUELO 09/23/2023 5:44 PM DIAPER MACHINE TENDER [facility] HEP B SURFACE AB REACTIVE 09/23/2023 5:46 PM DIAPER MACHINE TENDER [facility] HAV IGM NON-REACTIVE NON-REACT CONSUELO 09/23/2023 5:44 PM DIAPER MACHINE TENDER [facility] HEPATITIS C AB NON-REACTIVE NON-REACT CONSUELO 09/23/2023 5:44 PM DIAPER MACHINE TENDER [facility] 09/23/2023 3:47 PM DIAPER MACHINE TENDER us Alfa Marrero DO LABORATORY Final Result [facility] [address] [place] [address], [place] [phone] from Last 3 Months or Most Recently Relevant to Health Maintenance Insurance [employer] Member Subscriber Plan / Payer (Ef fective 2021-Present) Name:Roma Clayton Relation to Subscriber:Spouse Name:Dorota Clayton Date of :1988 Address: [address] [place], [place] [id number] Payer ID:[id number] (NAIC) Type:Not on file Address: [place] [phone] Advance Directives * Full Code (Latest Code Status on File) Date Activated Date Inactivated Comments 12/08/2023 8:10 PM 12/10/2023 3:45 PM * Full Code Date Activated Date Inactivated Comments 09/22/2023 5:59 AM 09/27/2023 1:09 PM * Full Code Date Activated Date Inactivated Comments 05/02/2023 4:26 PM 05/06/2023 12:54 PM * Full Code Date Activated Date Inactivated Comments 03/15/2022 7:58 AM 03/23/2022 4:12 PM * Full Code Date Activated Date Inactivated Comments 02/01/2022 11:09 AM 02/04/2022 2:50 PM Care Teams Nonprofit Manager Relationship Specialty Start Date End Date Keith Silva MD [address] [place] [address] PCP - General FAMILY PRACTICE 11/15/20
--- OUTSIDE RECORDS SUMMARY | 2024-11-06 04:24 | XMS_ITS | Clinical Summary ---
Author Organization [facility] Address [address] [place] [address] Care Team Providers Care Debt Management Counselor Name Role Phone Keith Silva MD Primary Care Provider Source Comments [facility],non-owned Affiliates and Associated Physician Practices is amultiple site organization consisting of ambulatory clinics and hospital sitesin [place], [place], [place] and [place]. This disclosure is being madepursuant to the Care Everywhere program and may not contain all information available regarding this patient. Last updated 18.[facility] Allergies Active Allergy Reactions Criticality Noted Date Comments Morphine Nausea and/or Vomiting High 02/10/2024 Severe projectile vomiting Penicillins Rash,Nausea and/or Vomiting Medium 02/10/2024 Medications * Be aware that medications may not be up to date on this document. Alwaysverify current medications with the patient. amLODIPine (Norvasc) 10 MG tabletIndicatio ns:Hypertension Take 1 (one) tablet by mouth once daily Reasons: High Blood Pressure Disorder Active hydroCHLOROthia zide (Hydrodiuril) 25 MG tabletIndicatio ns:Hypertension Take 1 (one) tablet by mouth once daily Reasons: High Blood Pressure Disorder Active predniSONE (Deltasone) 20 MG tabletIndicatio ns:Crohn's Disease Take 1 (one) tablet by mouth once daily Reasons: Crohn's Disease Active ondansetron (Zofran) 4 MG tabletIndicatio ns:Nausea and Vomiting Take 1 (one) tablet by mouth every 6 hours as needed for Nausea/Vomiti ng Reasons: Nausea and Vomiting Active dicyclomine (Bentyl) 10 MG capsule Take 1 (one) capsule by mouth 4 times daily Active Ustekinumab (STELARA SC) Active ferrous sulfate 325 (65 FE) MG tablet Take 1 (one) tablet by mouth 3 times daily with meals 02/13/2024 Active Active Problems Problem Noted Date Diagnosed Date Crohn's disease of colon with rectal bleeding Social History Tobacco Use Types Packs/Day Years Used Date Smoking Tobacco: Every Day Cigarettes Smokeless Tobacco: Never Tobacco Cessation:Ready to Q uit: Not Asked; Counseling Given: Not Answered AUDIT-C Answer Date Recorded Q1: How often do you have a drink containing alc ohol? 2-4 times a month 02/10/2024 Q2: How many drinks containi ng alcohol do you have on a typical day when you are drinking? 1 or 2 02/10/2024 Q3: How often do you have si x or more drinks on one occasion? Never 02/10/2024 Overall Financial Resource Strain (CARDIA) Answe r Date Recorded How hard is it for you to pa y for the very basics like food, housing, medical care, and heating? Not very hard 02/10/2024 [facility] - Occupational Stress Questionnaire Answer Date Recorded Do you feel stress - tense, restless, nervous, or anxious, or unable to sleep at night because your mind is troubled all the time - these days? Not at all 02/10/2024 Hunger Vital Sign Answer Date Recorded Within the past 12 months, y ou worried that your food would run out before you got the money to buy more. Never true 02/10/20 24 Within the past 12 months, t he food you bought just didn't last and you didn't have money to get more. Never true 02/10/2024 PRAPARE - Transportation Answer Date Re corded In the past 12 months, has l ack of transportation kept you from medical appointments or from getting medications? No 01/15 In the past 12 months, has l ack of transportation kept you from meetings, work, or from getting things needed for daily living? No 02/10/2024 Housing Stability Vital Sign Answer Avinash e Recorded In the last 12 months, was t here a time when you were not able to pay the mortgage or rent on time? No 02/10/2024 In the last 12 months, how many places have you lived? 1 02/10/2024 In the last 12 months, was t here a time when you did not have a steady place to sleep or slept in a group home (including now)? No 02/10/2024 Comments Unknown Sex and Gender Information Value Date Recorded Sex Assigned at Female 02/10/2024 9:41 PM CDT Legal Sex Female 3:07 PM CDT Gender Identity Not on file Sexual Orientation Not on file Last Filed Vital Signs Vital Sign Reading Time Taken Comments Blood Pressure 131/63 02/13/2024 12:32 PM CDT Pulse 72 02/13/2024 12:32 PM CDT Temperature 36.6 C (97.8 F) 02/13/2024 12:32 PM CDT Respiratory Rate 18 02/13/2024 12:32 PM CDT Oxygen Saturation 95% 02/13/2024 8:17 AM CDT Inhaled Oxygen Concentration - - Weight 130 kg (286 lb 9.6 oz) 02/12/2024 11:37 P M CDT Height 160 cm (5' 3 ) 02/10/2024 9:37 PM CDT Body Mass Index 50.77 02/10/2024 9:37 PM CDT Plan of Treatment Health Maintenance Due Date Last Done Comments LIPID TESTING 1982 MAMMOGRAM 1982 PAP SMEAR 1982 COVID-19 VACCINE (#1) 1987 HIV SCREENING 1997 HEPATITIS C SCREENING 02/22/2000 DTAP/TDAP/TD VACCINES (1 - Tdap) 2001 HEPATITIS B VACCINE (1 of 3 - 19+ 3-dose series) 2001 PNEUMOCOCCAL VACCINE (1 of 2 - PCV) 2001 ZOSTER VACCINE (1 of 2) 2001 DEPRESSION SCREENING 07/17/2024 INFLUENZA VACCINE (Season Ended) 2025 HIB VACCINE Aged Out No longer eligi ble based on patient's age to complete this topic HPV VACCINE Aged Out No longer eligi ble based on patient's age to complete this topic MENINGOCOCCAL (Group B) VACC INE SHARED DECISION-MAKING Aged Out No longer eligibl e based on patient's age to complete this topic MENINGOCOCCAL GROUPS A/C/Y/W VACCINE Aged Out No longer eligible b ased on patient's age to complete this [place] [address] [facility] Advance Directives * Full Code (Latest Code Status on File) Date Activated Date Inactivated Comments 02/10/2024 10:27 PM 02/13/2024 2:06 PM Care Teams Debt Management Counselor Relationship Specialty Start Date End Date Keith Silva MD [address] [place] [phone] PCP - General Family Medicine 02/10/24
--- OUTSIDE RECORDS SUMMARY | 2024-11-06 04:24 | XMS_ITS | Encounter Summary ---
Author Organization [facility] Address [facility] [place] [address] Care Team Providers Care Manager Progressive Care Name Role Phone Keith Silva MD Primary Care Provider + [phone] Encounter Details Date Type Department Care Team (Late st Contact Info) Description 07/19/2021 Prep for Procedure [facility] [place] [address] Alfa Marrero, DO Social History Tobacco Use Types Packs/Day Years Used Date Smoking Tobacco: Every Day Cigarettes Smokeless Tobacco: Never Alcohol Use Standard [...] often do you attend chur ch or zoroastrian services? Never 04/21/2021 Do you belong to any clubs o r organizations such as hoahaoism groups, unions, fraternal or athletic groups, or [...] move on to questions 3-9 0 04/21/2021 [facility] - Occupational [...] place to sleep or slept in a intermediate (including now)? No 04/21/2021 Comments No Sex and Gender Information Value Date Recorded Sex Assigned at Female 04/21/2021 8:57 PM CDT Legal Sex Female 11:34 PM CDT Gender Identity Female 04/21/2021 8:57 PM CDT Sexual Orientation Not on file COVID-19 Exposure Response Date Recorded In the last month, have you been in contact with someone who was confirmed or suspected to have Coronavirus / COVID-19? No / Unsure 07/20/2021 9:39 AM PARTY PLAN SALES UNIT ADVISOR documented as of this encounter Functional Status * RETIRED Are you deaf or do you have serious difficulty hearing Answer Date of Assessment Author Status No 05/11/2021 12:25 AM CDT Acti ve * RETIRED Are you blind or do you have serious difficulty seeing, even when wearing glasses? Answer Date of Assessment Author Status No 05/11/2021 12:25 AM CDT Acti ve * Do you have serious difficulty walking or climbing stairs? Answer Date of Assessment Author Status No 05/11/2021 12:25 AM CDT Neyda Hwang RN Active * Do you have difficulty dressing or bathing? Answer Date of Assessment Author Status No 05/11/2021 12:25 AM CDT Neyda Hwang RN Active * Because of a physical, mental, or emotional condition, do you have difficulty doing errands alone such as visiting a doctor's office or shopping? Answer Date of Assessment Author Status No 05/11/2021 12:25 AM CDT Neyda Hwang RN Active * Calculated C-SSRS Risk Score (Lifetime/Recent) Answer Date of Assessment Author Status No Risk Indicated 07/20/2021 9:54 AM [employer]Y PLAN SALES UNIT ADVISOR Franchesca Hernández RN Active * Davidson Suicide Severity Rating Scale (Screener/Recent Self-Report) Question Answer Date of Assessment Author Status 1. Wish to be (Past 1 Month) No 07/20/2021 9:54 AM Franchesca De Guzman RN Active 2. Non-Specific Active Suicidal Thoughts (Past 1 Month) No 07/20/2021 9:54 AM Franchesca De Guzman RN Active 6. Suicidal Behavior (Lifetime) No 07/20/2021 9:54 AM Franchesca De Guzman RN Active documented as of this encounter Mental Status * Because of a physical, mental, or emotional condition, do you have serious difficulty concentrating, remembering, or making decisions? Answer Entry Date Author Status No 05/11/2021 12:25 AM CDT Neyda Hwang RN Active documented in this encounter Plan of Treatment Not on file documented as of this encounter Goals Goal Patient Goal Type Associated Problems Recent Progress Patient-Stated? Author Safety - demonstrates understanding of home safety measures General No Sinai Taylor RN Safety - demonstrates understanding of home safety measures General No Sinai Taylor RN documented as of this encounter Visit Diagnoses Diagnosis Crohn's colitis ([facility])- Primary Regional enteritis of large intestine documented in this encounter Additional Health Concerns Infection Onset Date Last Indicated Resolved Time COVID-19 Rule Out 07/19/2021 07/19/2021 07/19/2021 10:23 AM [employer] PL[employer] SALES UNIT ADVISOR COVID-19 Rule Out 07/19/2021 07/19/2021 07/19/2021 4:26 PM [employer]Y PL[employer] SALES UNIT ADVISOR COVID-19 Rule Out 10/29/2021 10/29/2021 10/29/2021 9:08 PM CDT Norovirus 05/08/2023 05/08/2023 06/05/2023 12:3 2 AM [employer] PL[employer] SALES UNIT ADVISOR COVID-19 Rule Out 09/07/2023 09/07/2023 09/07/2023 12:45 PM [employer]Y PL[employer] SALES UNIT ADVISOR COVID-19 Rule Out 09/08/2023 09/08/2023 09/08/2023 6:46 PM [employer]Y PL[employer] SALES UNIT ADVISOR Assessment Noted Time PHQ-9 Depression Total Score: 0 04/21/20 1:26 PM CDT documented as of this encounter Care Teams Manager Progressive Care Relationship Specialty Start Date End Date Keith Silva MD [address] [place], [place] [id number] PCP - General FAMILY PRACTICE 11/15/20 documented as of this encounter
--- OUTSIDE RECORDS SUMMARY | 2024-11-06 04:24 | XMS_ITS | Data Portability ---
Author Organization [facility], [place] Address [address] [address] Care Team Providers Care Crayon Grader Name Role Phone FUAD LYUBOV Primary Care Provider Assessment No assessment recorded. Plan of Treatment Reminders Order Date Submit Date Provider Last Modified By Organization Details Last Modified Time Details Appointments None record ed. Lab None record ed. Referral None record ed. Procedures None record ed. Surgeries None record ed. Imaging None record ed. Medication Orders None record ed. Patient TargetsNo targets recorded. Patient InstructionsNo instructions recorded. Reason for Referral None Reported. Results Created Date Observation Date Name Description Value Unit Range Abnormal Flag Note LastModifiedBy Organization Detail LastModifiedTime Result Notes None recorded. Procedures Surgical History Date Name Laterality Status Provider Name and Address Organization Details Recorded Time 021 Endometrial Biopsy completed John Paul Ferguson MD [address], [place], [address], [facility] 08/20/2020 13:12:26 003 Laparotomy completed [facility] 08/20/2020 11:37:44 002 Laparotomy completed [facility] 08/20/2020 11:37:42 001 Hernia repair w/mesh completed [facility] 08/20/2020 11:24:36 Cholecystectomy completed [facility] 08/20/2020 11:24:43 Appendectomy completed [facility] 08/20/2020 11:24:49 Tonsillectomy completed [facility] 08/20/2020 11:24:54 Imaging Results None recorded. Procedure Notes None recorded. Medical Equipment None Reported. Allergies Allergen ID Allergen Name Allergen Category Reaction Reaction Severity Criticality Documentation Date Start Date Code Code System Note Provider Name and Address Organization Details Recorded Time 69239 Product containin g penicilli n (product) medicatio n Not available Not available Not available 08/20/2020 46000 8001 SNOMED [facility] 11:20:56 48834 morphine medicatio n Not available Not available Not available 08/20/2020 7052 RxNorm [facility] 11:21:02 Medications Name Sig Start Date Stop Date Status Note LastModified by Organization Details LastModified Time clindamycin HCl 300 mg capsule TK 1 C PO Q 6 H FOR 10 DAYS 08/20 completed Not Available Not Available Not Available Pentasa 250 mg capsule,con trolled release TK 4 CS PO QID 08/20 completed Not Available Not Available Not Available polyethylen e glycol 3350 17 gram oral powder packet DISSOLVE 1 POWDER IN WATER & DRINK ONCE DAILY NEEDED FOR CONSTIPAT ION STIR POWDER INTO 4 8OZ OF WATER JUICE COFFEE OR TEA UNTIL DISSOLVED 08/20 completed Not Available Not Available Not Available ondansetron HCl 4 mg tablet TK 1 T PO Q 6 H PRF NAUSEA OR VOM 08/20 completed Not Available Not Available Not Available prednisone 5 mg tablet 08/20 completed Not Available Not Available Not Available metronidazo le 500 mg tablet TK 1 T PO BID FOR 5 DAYS 08/20 completed Not Available Not Available Not Available azathioprin e 50 mg tablet TK 2 TS PO D 08/20 completed Not Available Not Available Not Available ciprofloxac in 500 mg tablet TK 1 T PO BID 08/20 completed Not Available Not Available Not Available sulfamethox azole 800 mg-trimetho prim 160 mg tablet TK 2 TS PO Q 12 H FOR 7 DAYS 08/20 completed Not Available Not Available Not Available ketorolac 10 mg tablet TK 1 T PO Q 6 TO 8 H FOR 3 DAYS 08/20 completed Not Available Not Available Not Available tamsulosin 0.4 mg capsule TK ONE C PO HS 08/20 completed Not Available Not Available Not Available pantoprazol e 40 mg tablet,nereyda yed release TK 1 T PO BID 08/20 completed Not Available Not Available Not Available ferrous sulfate 325 mg (65 mg iron) tablet TK 1 T PO BID 08/20 completed Not Available Not Available Not Available ergocalcife rol (vitamin D2) 1,250 mcg (50,000 unit) capsule TK 1 C PO Q WK 08/20 completed Not Available Not Available Not Available levofloxaci n 750 mg tablet TAKE 1 TABLET BY MOUTH ONCE DAILY FOR 5 DAYS 08/20 completed Not Available Not Available Not Available ondansetron 4 mg disintegrat ing tablet DIS ONE T PO Q 6 TO 8 H UTD 08/20 completed Not Available Not Available Not Available doxycycline hyclate 100 mg tablet TK 1 T PO BID FOR 10 DAYS 08/20 completed Not Available Not Available Not Available Ferrocite 324 mg (106 mg iron) tablet TK 1 T PO D 4 H AFTER DOXYCYCLI NE ANTIBIOTI CS 08/20 completed Not Available Not Available Not Available tranexamic acid 650 mg tablet 08/20 completed Not Available Not Available Not Available Vitals Date Recorded Body height Body mass index (BMI) Body weight Systolic blood pressure Diastolic blood pressure Provider Name and Address Organization Details Last Updated DateTime 08/20/2020 162.56 cm 50.8 kg/m2 085445.3 4 g 158 mm[Hg] 90 mm[Hg] Christ[facility] Howell [facility] 11:36:54 Social History Question Answer Notes LastModified by Organizat ion Details LastModified Time Tobacco Smoking Status Current Every Day Smoker Christal weems [facility] 08/20/2020 11:24:08 What Is Your Level Of Alcohol Consumption? Occasional Information not available 08/20/2020 Which Illicit Or Recreational Drugs Have You Used? Marijuana Information not available 08/20/2020 Have You Ever Been Counseled For Unhealthy Alcohol Use? No Information not available 08/20/2020 Do You Use Any Illicit Or Recreational Drugs? Yes Information not available 08/20/2020 Has Tobacco Cessation Counseling Been Provided? No Information not available 08/20/2020 How Many Years Have You Smoked Tobacco? 16 Information not available 08/20/2020 Do You Or Have You Ever Used Any Other Forms Of Tobacco Or Nicotine? No Information not available 08/20/2020 Sex: Unknown Functional Status None recorded. Mental Status None recorded. Family History Relationship Description Onset Age of this Age Resolved Age Notes LastModified by Organization Details LastModified Time Father Diabetes mellitus Not available 2020 11:22:36 Mother Hypertensive disorder Not available 2020 11:22:44 Sister Female infertility Not available 10/2020 11:23:17 Sister Cyst of ovary Not available 2020 11:23:34 Paternal Aunt Female infertility Not available 10/2020 11:37:58 Medical History Condition Response Infertility Y Gynecological History Statement/Question Response Date of Last Pap Smear Current Control Method None 13 Date of LMP 06/02/2021 Obstetrics History GPAL:G 0 P 0 0 0 0 Past Encounters Encounter ID Performer Location Encounter Start Date Encounter Closed Date Diagnosis/Indication Diagnosis SNOMED-CT Code Diagnosis ICD10 Code Diagnosis Note [id number] John Paul Ferguson MD [place] [address] [address] 08/20/2020 11:17:42 08/20/2020 12:13:33 Anovular menstruation 29242985 N93.8 Polycystic ovary syndrome 531068818 E28.2 this patient is a 40-year-ol d female with anovulator y bleeding and lifelong PCOS.We discussed abnormal uterine bleeding and amenorrhea . We discussed polycystic ovarian syndrome. We discussed the diagnosis. We discussed the underlying disease process. We discussed laboratory evaluation . We discussed her ultrasound and laboratory results. We discussed the prevention of endometria l cancer. We discussed protecting the endometriu m and how that is carried out. We discussed treatment in the context of a desired . We discussed medical treatment. We discussed the risk associated with PCOS and long-term health outcomes. We discussed this complex problem at length. It has unknown prognosis. We performed endometria l biopsy. We have a proposed treatment plan. We are going to insert Mirena IUD. Health Concerns Section Related Observation LastModified by Organization Detai ls LastModified Time None Recorded Concern Status LastModified by Organization Details LastModified Time None Recorded Advance Directives Directive None Recorded Payers Encounter Date Sequence Insurance Name Policy Number Policy Dunham Covered Member ID Dunham Member ID Guarantor Name 08/20/2020 1 [employer] [facility] [place] [facility] ON OR AFTER 06/16/2020 (MEDICAID REPLACEMENT - HMO) Roma Rowan [id number] Roma Rowan Notes Date Note Type Note Provider Name and Address Organization Details Recorded Time 08/20/2020 text/html Beer - Abnormal BleedingReported bypatient.Onset/Timin g:irregular Duration:10-15 days/month Quality:passing clots;irregular;heavy Severity:changing pad/tampon every 1-2 hours; requires double protection; interferes with daily activities; requires getting up at night; bleeding through onto clothes/sheets Associated Symptoms:no abdominal pain;dysmenorrhea;pel cornelius pain;fatigue;dizzines s;shortness of breathNotes:We discussed abnormal uterine bleeding and amenorrhea. We discussed polycystic ovarian syndrome. We discussed the diagnosis. We discussed the underlying disease process. We discussed laboratory evaluation. We discussed her ultrasound and laboratory results. We discussed the prevention of endometrial cancer. We discussed protecting the endometrium and how that is carried out. We discussed treatment in the context of a desired . We discussed medical treatment. We discussed the risk associated with PCOS and long-term health outcomes.flavio Ferguson MD [address], [place], [address], [place] [facility] 08/20/2020 13:14:11 OBGyn Episode No OBEpisode recorded.
[2024-11-06 04:25] VITALS: BP 162/88; PULSE 78; RESP 17; TEMP 35.8; O2SAT 100
[2024-11-06 04:41] VITALS: BP 141/99; PULSE 68; RESP 12; O2SAT 99
[2024-11-06] MEDS: SODIUM CHLORIDE 0.9% IV 1,000 ML 999 ML IV CONT (04:56)
[2024-11-06] MEDS: HYDROmorphone HCL INJ (*CRX) 2 MG/ML VIAL 0.5 MG IV PUSH (04:56)
[2024-11-06] MEDS: DICYCLOMINE HCL INJ 20 MG/2 ML VIAL IM (04:57)
[2024-11-06] MEDS: PROCHLORPERAZINE EDISYLATE 10 MG/2 ML VIAL IV PUSH (04:58)
--- NOTE | 2024-11-06 04:59 | ED_ITS ---
HPI - General Adult General Chief complaint: Abdominal Pain Stated complaint: abdominal pain Time Seen by Provider: 11/06/24 04:33 History of Present Illness HPI narrative: patient Persian year old female who presents emergency department chief complaint of abdominal pain patient reports he has prior history of Crohn's reports she has had surgery for adhesions before in the past the patient states that she has had cramping throughout her abdomen and reports that the symptoms are not improved by anything the patient reports that she started off having some loose stools but subsequently she is not having bowel movements any more the patient does report that she uses marijuana Related Data Home Medications ?Medication ?Instructions ?Recorded ?Confirmed ?Last Taken ?Type amlodipine 10 mg tablet 10 mg PO DAILY 11/22/23 07/25/24 07/24/24 History hydrochlorothiazide 25 mg tablet 25 mg PO DAILY 11/22/23 07/25/24 07/24/24 History ondansetron HCl 4 mg tablet 4 mg PO Q8H PRN Nausea And Vomiting 01/16/24 07/25/24 07/25/24 History dicyclomine 10 mg capsule 10 mg PO QID PRN Abdominal 04/25/24 07/25/24 Unknown History Discomfort Allergies Allergy/AdvReac Type Severity Reaction Status Date / Time Penicillins Allergy Unknown Rash Verified 11/06/24 04:25 morphine AdvReac Nausea and Verified 11/06/24 04:25 Vomiting Review of Systems 2 Review of Systems: A 10 system review of systems was completed on the patient and is negative except for what is stated in the HPI. Nursing and ancillary documentation was reviewed. [facility] Past Medical History Medical History Asthma Anxiety Port-A-Cath in place History of right sided Port-A-Cath with subsequent removal placed 2011 removed proximally 2016. Placed due to poor vascular access. Crohn's disease of small intestine with complication Hypertension History of small bowel obstruction Has been treated conservatively and also required surgical intervention x 2 with adhesiolysis. Tobacco abuse Menorrhagia Hepatic steatosis Nephrolithiasis Morbid obesity 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 GERD with esophagitis Anemia Abdominal wall cellulitis Surgical History Surgical History Status post laparoscopic hernia repair laparoscopic ventral hernia repair with mesh History of exploratory laparotomy Has had what sounds like an exploratory laparotomy with adhesiolysis x 2 in [facility]. History of tonsillectomy History of appendectomy Appendix removed during 2nd exploratory laparotomy. History of cholecystectomy Laparoscopic Family History Family History Father Diabetes mellitus Mother Hypertension Sibling No problems noted. Other Crohn's colitis Social History Social History Social History: Surrogate decision maker: Dorota Clayton () Code status: Full code. Smoking packs per day: 0.1 Smoking cigarettes per day: 2.0 Years smoked: 16 Smoking pack-years: 1.60 Smoking status: Current every day smoker Tobacco type: cigarettes Second hand tobacco smoke exposure: No Alcohol intake: current Drinks per week: 1 Alcohol use details: 1-2 alcoholic beverages every 1-2 months. Substance use: current Substance use type: marijuana Other substance usage details: smokes marijauna every day Last use: 08/20/2022 Do You Feel Safe in your Home?: Yes Lack of Transportation: No Lack of Food: Never True Current Housing: I Have Housing Concerned About Future Housing: Decline to Answer Difficulty Paying Gas/Electric Bills: Decline to Answer Difficulty Paying for Meds: Decline to Answer Currently Unemployed: Decline to Answer Education: High School Diploma/GED Difficulty w/ Childcare or Family Care: No Living arrangements: with family Additional living arrangements comments: Lives in [place] with her fiance. Recently moved to the area from [facility]. Occupation/Education: other Additional occupation/education comments: Unemployed. Spiritual care concerns: No Exam 2 Narrative: GENERAL: Well-appearing, well-nourished, and in no acute distress. HEAD: Normocephalic, atraumatic. EYES: PERRLA and EOMI. ENT: Nares clear, no rhinorrhea or epistaxis. Mucous membranes moist. NECK: Supple. CHEST: Clear to auscultation. No respiratory distress. HEART: Regular rate and rhythm. No murmur heard. Normal peripheral pulses. ABDOMEN: Soft, Diffusely tender to palpation, nondistended, normal active bowel sounds. EXTREMITIES: Normal range of motion. No edema. SKIN: Warm, dry, no rash. NEURO: No focal deficits. Alert and oriented x3. PSYCH: Normal mood and affect. Course Vital Signs Vital signs: Vital Signs Temperature 35.8 C L 11/06/24 04:25 Pulse Rate 78 11/06/24 04:25 Respiratory Rate 17 11/06/24 04:25 Blood Pressure 162/88 H 11/06/24 04:25 Pulse Oximetry 100 11/06/24 04:25 Oxygen Delivery Room Air 11/06/24 04:25 Temperature 35.8 C L 11/06/24 04:25 Pulse Rate 68 11/06/24 04:41 Respiratory Rate 12 11/06/24 04:41 Blood Pressure 141/99 H 11/06/24 04:41 Pulse Oximetry 99 11/06/24 04:41 Oxygen Delivery Room Air 11/06/24 04:25 Medical Decision Making MDM Narrative Medical decision making narrative: differential diagnosis includes small-bowel obstruction, intra-abdominal infection, diverticulitis, colitis, Crohn's urinalysis was within normal limits CBC and CMP did not show any significant abnormalities lactate was normal lipase was normal CT scan of the abdomen pelvis showed no evidence of small-bowel obstruction there was evidence of enteritis Vital Signs Vital Signs: Vital Signs Temperature 35.8 C L 11/06/24 04:25 Pulse Rate 78 11/06/24 04:25 Respiratory Rate 17 11/06/24 04:25 Blood Pressure 162/88 H 11/06/24 04:25 Pulse Oximetry 100 11/06/24 04:25 Oxygen Delivery Room Air 11/06/24 04:25 Temperature 35.8 C L 11/06/24 04:25 Pulse Rate 68 11/06/24 04:41 Respiratory Rate 12 11/06/24 04:41 Blood Pressure 141/99 H 11/06/24 04:41 Pulse Oximetry 99 11/06/24 04:41 Oxygen Delivery Room Air 11/06/24 04:25 Lab Data 11/06/24 04:52 11/06/24 04:52 Labs: Lab Results 11/06/24 11/06/24 Range/Units 04:52 04:59 WBC 10.9 H (4.5-10.0) K/mm3 RBC 4.84 (4.2-5.4) M/mm3 Hgb 10.7 L (12.0-15.0) g/dL Hct 37.0 (37.0-47.0) % MCV 76.4 L (80-100) fl MCH 22.1 L (26-34) pg MCHC 28.9 L (32-36) g/dl RDW 19.3 H (11.5-14.5) % Plt Count 407 H (150-375) k/mm3 MPV 9.5 (7.4-10.4) fl Immature Gran % (Auto) 0.4 (0-0.5) % Neut % (Auto) 84.4 H (45.5-73.1) % Lymph % (Auto) 10.8 L (18.3-44.2) % [place] % (Auto) 3.8 (2.6-8.5) % Eos % (Auto) 0.3 (0-4.4) % Baso % (Auto) 0.3 (0.2-1.2) % Lymph # (Auto) 1.18 (0.9-3.2) K/mm3 [place] # (Auto) 0.4 (0.1-0.6) K/mm3 Eos # (Auto) 0.0 (0-0.3) K/mm3 Baso # (Auto) 0.0 (0.0-0.1) K/mm3 Abs Immat Gran (auto) 0.04 H (0.00-0.031) K/mm3 Absolute Neuts (auto) 9.2 H (1.3-6.7) K/mm3 Absolute Nucleated RBC 0.000 (0.0-0.012) K/mm3 Band Neutrophils % 0 (0-6) % Nucleated RBC % 0.0 (0.0-0.2) % Platelet Estimate Slightly increased (Adequate) Ovalocytes 1+ Schistocytes None seen Sodium 142 (137-145) mmol/L Potassium 3.9 (3.4-5.0) mmol/L Chloride 104 (98-107) mmol/L Carbon Dioxide 26 (22-30) mmol/L Anion Gap 12 (4-12) mmol/L BUN 17 (7-17) mg/dL Creatinine 0.89 (0.7-1.0) mg/dL Estim Creat Clear Calc 94 ml/min Estimated GFR > 60 (59 - ) Glucose 120 H (65-110) mg/dL Lactic Acid 1.1 (0.7-2.0) mmol/L Calcium 9.5 (8.4-10.2) mg/dL Total Bilirubin 0.7 (0.2-1.3) mg/dL AST 24 (14-36) U/L ALT 20 (6-35) U/L Alkaline Phosphatase 78 (38-126) U/L Total Protein 8.0 (6.3-8.2) g/dL Albumin 4.6 (3.5-5.1) g/dL Lipase 41 (23-300) U/L Urine Color Dark yellow (Yellow) Urine Appearance Cloudy H (Clear) Urine pH 5.5 (5.0-9.0) Ur Specific [place] 1.027 (1.001-1.035) Urine Protein Negative (Negative) mg/dL Urine Glucose (UA) Negative (Negative) mg/dL Urine Ketones Trace H (Negative) mg/dL Ur Blood (Man) Negative (Negative) Urine Nitrate Negative (Negative) Urine Bilirubin 1+ H (Negative) Urine Urobilinogen 1.0 (<2.0) mg/dL Add Ur Microanalysis Reviewed Leukocyte Esterase Rfl Trace H (Negative) JOANNE/UL Urine RBC 0-2 (0-2) /hpf Urine WBC 0-5 (0-3) /hpf Ur Squamous Epith Cells Moderate (Few) /hpf Calcium Oxalate Crystal Present (None) /hpf Urine Bacteria 2+ H /hpf Urine Casts 6-10 Urine Yeast (Budding) Present H (None) /hpf POC Urine HCG, Qual Negative (Negative) Discharge Plan Discharge Clinical Impression: Enteritis, Nausea and vomiting in adult Patient Disposition: Home Condition: Stable Instructions: Antibiotic Form, Abdominal Pain (ED), Enteritis (ED) Patient Language: Serbian Prescriptions: New dicyclomine 20 mg tablet 20 mg PO QID PRN (Reason: abdominal discomfort) Qty: 20 0RF ondansetron 4 mg tablet,disintegrating 4 mg PO Q8H PRN (Reason: nausea and vomiting) Qty: 10 0RF No Action Stelara 90 mg/mL syringe 90 mg subcut .every 4 weeks Qty: 1 6RF Rx Instructions: last dose mar 29 ondansetron HCl 4 mg tablet 4 mg PO Q8H PRN (Reason: Nausea And Vomiting) amlodipine 10 mg tablet 10 mg PO DAILY hydrochlorothiazide 25 mg tablet 25 mg PO DAILY dicyclomine 10 mg capsule 10 mg PO QID PRN (Reason: Abdominal Discomfort) Follow-up/Referrals: Keith Silva MD [Primary Care Provider] - Time of Disposition: 06:41
[2024-11-06 05:01] LABS: BEDSIDEPREGUCG Negative (Negative)
[2024-11-06 05:05] LABS: Basophils Percent Auto 0.3 % (0.2-1.2); Eosinophils Percent Auto 0.3 % (0-4.4); Hemoglobin 10.7 g/dL (12.0-15.0); Immature Granulocyte Absolute 0.04 K/mm3 (0.00-0.031); Immature Granulocyte Percent A 0.4 % (0-0.5); Lymphocytes Absolute Auto 1.18 K/mm3 (0.9-3.2); Lymphocytes Percent Auto 10.8 % (18.3-44.2); Mean Corpuscular HGB Conc 28.9 g/dl (32-36); Mean Corpuscular Hemoglobin 22.1 pg (26-34); Mean Corpuscular Volume 76.4 fl (80-100); Mean Platelet Volume 9.5 fl (7.4-10.4); Monocytes Absolute Auto 0.4 K/mm3 (0.1-0.6); Monocytes Percent Auto 3.8 % (2.6-8.5); Neutrophils Absolute Auto 9.2 K/mm3 (1.3-6.7); Neutrophils Percent Auto 84.4 % (45.5-73.1); Platelet Count Result 407 k/mm3 (150-375); Red Blood Count 4.84 M/mm3 (4.2-5.4); Red Cell Distribution Width 19.3 % (11.5-14.5); White Blood Count 10.9 K/mm3 (4.5-10.0)
--- OUTSIDE RECORDS SUMMARY | 2024-11-06 05:15 | XMS_ITS | Encounter Summary ---
Author Organization [facility] Address [facility] [place] [address] Care Team Providers Care Sawsmith Name Role Phone Keith Silva MD Primary Care Provider + [phone] Encounter Details Date Type Department Care Team (Late st Contact Info) Description 07/19/2021 Prep for Procedure [facility] [place] [address] Alfa Marrero, DO Social History Tobacco Use [...] often do you attend chur ch or christianity services? Never 04/21/2021 Do you belong to any clubs o r organizations such as caodaism groups, unions, fraternal or athletic groups, or [...] move on to questions 3-9 0 04/21/2021 [facility] - Occupational [...] place to sleep or slept in a fci (including now)? No 04/21/2021 Comments No Sex [...] COVID-19? No / Unsure 07/20/2021 9:39 AM [employer]GG[employer] documented as of this encounter Functional Status [...] Status No Risk Indicated 07/20/2021 9:54 AM [employer] Franchesca Hernández RN Active * [place] Suicide Severity Rating Scale (Screener/Recent Self-Report) Question [...] this encounter Visit Diagnoses Diagnosis Crohn's colitis ([facility])- Primary Regional enteritis of large intestine documented in this encounter Additional Health Concerns Infection Onset Date Last Indicated Resolved Time COVID-19 Rule Out 07/19/2021 07/19/2021 07/19/2021 10:23 AM [employer] COVID-19 Rule Out 07/19/2021 07/19/2021 07/19/2021 4:26 PM [employer] COVID-19 Rule Out 10/29/2021 10/29/2021 10/29/2021 9:08 PM CDT Norovirus 05/08/2023 05/08/2023 06/05/2023 12:3 2 AM [employer] COVID-19 Rule Out 09/07/2023 09/07/2023 09/07/2023 12:45 PM [employer] COVID-19 Rule Out 09/08/2023 09/08/2023 09/08/2023 6:46 PM [employer] Assessment Noted Time PHQ-9 Depression Total Score: 0 04/21/20 1:26 PM CDT documented as of this encounter Care Teams Sawsmith Relationship Specialty Start Date End Date Keith Silva MD [address] [place], [place] [id number] PCP - General FAMILY PRACTICE 11/15/20 documented as of this encounter
--- OUTSIDE RECORDS SUMMARY | 2024-11-06 05:15 | XMS_ITS | Encounter Summary ---
Author Organization [facility] Address [facility] [place] [address] Care Team Providers Care Professor Of Musicology Name Role Phone Keith Silva MD Primary Care Provider + [phone] Encounter Details Date Type Department Care Team (Late st Contact Info) Description 11/02/2021 Prep for Procedure [facility] [place] [address] Alfa Marrero, DO Social History Tobacco Use [...] often do you attend chur ch or adventist services? Never 04/21/2021 Do you belong to any clubs o r organizations such as evangelical groups, unions, fraternal or athletic groups, or [...] move on to questions 3-9 0 04/21/2021 [facility] of Occupat ional Health [...] place to sleep or slept in a prison (including now)? 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 Answer Date of Assessment Author Status No 08/12/2021 11:04 AM OUTSOLES CHANNEL OPENER Acti ve * Do you have serious difficulty walking or climbing stairs? Answer Date of Assessment Author Status No 08/12/2021 11:04 AM OUTSOLES CHANNEL OPENER Kiara Mir RN Active * Do you [...] AM CDT Gabi Godinez RN Active * [place] Suicide Severity Rating Scale (Screener/Recent Self-Report) Question [...] Date Author Status No 08/12/2021 11:04 AM OUTSOLES CHANNEL OPENER Kiara Mir RN Active documented in this [...] SPEC DESCRIPTION NASAL 10/30/19 10:00 AM CDT [facility] CORONAVIRUS SARS COV 2 PCR (RESP) NEGATIVE NEGATIVE 10/29/2021 9:08 PM CDT [facility] Comment: THE SARS-CoV-2 TEST HAS BEEN AUTHORIZED BY THE FDA UNDER AN EUA FOR USE BY AUTHORIZED LABORATORIES. PERFORMED BY NUCLEIC ACID AMPLIFICATION PCR FIRST TEST NO 10/29/2021 10:00 AM CDT [facility] EMPLOYED IN HEALTHCARE NO 10/29/2021 10:00 AM CDT [facility] SYMPTOMATIC DEFINED BY CDC NO 10/29/2021 10:00 AM CDT [facility] HOSPITALIZATION STATUS NO 10/29/2021 10:00 AM CDT [facility] PATIENT IN ICU NO 10/29/2021 10:00 AM CDT [facility] RESIDENT OF [facility]1983 CARE NO 10/29/2021 10:00 AM CDT [facility] NOT 10/29/2021 10:00 AM CDT [facility] NASAL STRUCTURE / Unknown 10/29/2021 9:56 AM CDT Alfa Marrero DO MICROBIOLOGY - GENERAL ORDERABL ES Final Result [facility] [address] [place] [address], [place] [phone] [facility] [address] [place] [id number], [place] [phone] documented in this encounter Visit Diagnoses Diagnosis Colitis- Primary Other and unspecified noninfectious gastroenteritis and colitis documented in this encounter Additional Health Concerns Infection Onset Date Last Indicated Resolved Time Norovirus 05/08/2023 05/08/2023 06/05/2023 12:3 2 AM OUTSOLES CHANNEL OPENER COVID-19 Rule Out 09/07/2023 09/07/2023 09/07/2023 12:45 PM OUTSOLES CHANNEL OPENER COVID-19 Rule Out 09/08/2023 09/08/2023 09/08/2023 6:46 PM OUTSOLES CHANNEL OPENER Assessment Noted Time PHQ-9 Depression Total Score: 0 04/21/20 1:26 PM CDT documented as of this encounter Care Teams Professor Of Musicology Relationship Specialty Start Date End Date Keith Silva MD [address] [place] [address] PCP - General FAMILY PRACTICE 11/15/20 documented as of this encounter
--- OUTSIDE RECORDS SUMMARY | 2024-11-06 05:15 | XMS_ITS | Encounter Summary ---
Author Organization [facility] Address [facility] [place] [id number] Care Team Providers Care Outpatient Coding Specialist Name Role Phone Keith Silva MD Primary Care Provider [phone] Reason for Visit * Reason Onset Date Comments Pre-op Question(s) 10/25/2023 Encounter Details Date Type Department Care Team (Late st Contact Info) Description 10/25/2023 Pre-Procedure Call [facility] End[facility]/GI [address] [address] Bladimir Claudio MD [address] [place] [phone] Pre-op Question(s) Social History Tobacco Use Types Packs/Day Years Used Date Smoking Tobacco: Light Smoker Cigarettes Smokeless Tobacco: Never Tobacco Cessation:Ready to Q uit: Not Asked; Counseling Given: Not Answered Alcohol Use Standard Drinks/Week Comments Yes 0 (1 standard drink = 0.6 oz pur e alcohol) socially [facility] Utilities Answer Date Recorded In the past 12 months has [employer], [employer], oil, or water [employer] threatened to shut off services in your [...] often do you attend chur ch or jewish services? Never 09/22/2023 Do you belong to [...] Recorded Patient Health Questionnaire-2 Score 3 09/22/2023 [facility] of Occupat ional Health - Occupational [...] to sleep or slept in a senior living (including now)? No 09/22/2023 Comments No Sex [...] Assessment Author Status No 09/22/2023 1:05 PM PHOTOGRAMMETRIST Greiff, Yasmin D, RN Active * Because of a physical, mental, or emotional condition, do you have difficulty doing errands alone such as visiting a doctor's office or shopping? Answer Date of Assessment Author Status No 09/22/2023 1:05 PM PHOTOGRAMMETRIST Yasmin Whitley RN Active documented as of [...] Depression Total Score: 15 024 8:40 AM PHOTOGRAMMETRIST documented as of this encounter Care Teams Outpatient Coding Specialist Relationship Specialty Start Date End Date Keith Silva MD [address] [place] [address] PCP - General FAMILY PRACTICE 11/15/20 documented as of this encounter
--- OUTSIDE RECORDS SUMMARY | 2024-11-06 05:15 | XMS_ITS | Clinical Summary ---
Author Organization [facility] Address [address] [place] [address] Care Team Providers Care Digital Forensics Examiner Name Role Phone Keith Silva MD Primary Care Provider [phone] Allergies Active Allergy Reactions Criticality Noted Date [...] Problem Noted Date Diagnosed Date Crohn's disease ([facility]) 12/09/2023 Enteritis 03/15/2022 Crohn's disease of colon wit hout complication ([facility]) 02/02/2022 Abdominal pain 02/01/2022 Exacerbation of Crohn's disease ([facility] ) 08/12/2021 Sepsis ([facility]) 05/10/2021 Microcytic anemia 01/17/2021 GERD (gastroesophageal reflux disease) 0 Overview (04/21/2021): Last Assessment & Plan: Continue PPIs. Class 3 severe obesity with serious comorbidity in adult 08/21/2019 Overview (04/21/2021): Last Assessment & Plan: Increases her overall morbidity and mortality. Exacerbation of Crohn's dise ase of small intestine ([facility]) 08/21/2019 Overview (04/21/2021): Last Assessment & Plan: Continue IV fluids, steroids and antibiotics. Per GI consultation during her last hospitalization last month, anticipating outpatient MRI enterography, prior to initiating Humira or Remicade. Tobacco dependence 08/21/2019 Overview (04/21/2021): Last Assessment & Plan: Counseled to quit on admission. Acute Crohn's disease with i ntestinal obstruction ([facility]) 07/18/2019 Poor venous access 08/29/2018 Encounter for smoking cessation counseling 07/09 Overview (04/21/2021): Last Assessment & Plan: Smoking cessation discussed with patient for four minutes nicotine patch declined SBO (small bowel obstruction) ([facility]) 05/22/2017 Overview (04/21/2021): Last Assessment & Plan: Surgery consulted appreciate recommendations NPO Pain control Antiemetics IV fluids Patient refusing NG tube at this time Hypokalemia 05/22/2017 Overview (04/21/2021): Last Assessment & Plan: K+ 3.2, K+ protocol placed Sole Splitter with BMP in AM Intractable abdominal pain 02/12/2017 Overview (04/21/2021): Last Assessment & Plan: Likely secondary to bowel obstruction IV Morphine 2mg Q3hr PRN Ofirmev Toradol 15mg IVP Q6hr Anxiety 02/12/2017 Overview (04/21/2021): Last Assessment & Plan: Not on home med Will do as needed meds Resolved Problems Problem Noted Date Diagnosed Date Resolved Date SBO (small bowel obstruction ) ([facility]) 01/16/2021 01/17/2021 Immunizations Immunization Administration Dates Next [...] = 0.6 oz pur e alcohol) socially [facility] Utilities Answer Date Recorded In the past 12 months has e [employer], oil, or water [employer] threatened to shut off services in your [...] 09/22/2023 How often do you attend chur Roseonly or restorationism services? Never 09/22/2023 Do you belong to any clubs o r organizations such as adventism groups, unions, fraternal or athletic groups, or [...] Patient Health Questionnaire-2 Score 3 09/22/2023 [facility] of Occupat ionpa Health - Occupational Stress Questionnaire Answer Date [...] place to sleep or slept in a halfway (including now)? No 09/22/2023 Housing Stability Vital Sign Answer Avinash e Recorded In the last 12 months, was t here a time when you were not able to pay the mortgage or rent on time? No 12/08/2023 In the past 12 months, how m any times have you moved where you were living? 0 12/08/2023 At any time in the past 12 m [facility], were you homeless or living in a halfway (including now)? No 12/08/2023 Comments No Sex [...] - 2023-2 5 season) 2024 PHQ-2 (Physician [place]) 07/17/2024 09/22/2023 DTaP, Tdap and Td Vaccines [...] discharge from hospital Lifestyle No Lashae Howard, CUSTOMS PORT DIRECTOR Medical Devices Implanted Type Area Pain Management Physician Device Identifier Shelf Expiration Date Model / Serial / Lot Mesh Mesh Abdomen Pillcam Implanted:Qty: 1 on 10/30/2023 by Sera Coronado RN at [facility] 12/18/2024 / [id number] / [id number] Description:Cindy Reyes RN implanted Procedures Procedure Name Priority Date/Time Associated Diagnosis Comments HC EIA QL HEPATITIS ABC B AG Routine 09/23/2023 3:47 PM APPLICATION DEVELOPER from Last 3 Months or Most Recently Relevant to Health Maintenance Results * HEPATITIS A,B,& C (09/23/2023 3:47 PM APPLICATION DEVELOPER) HEPATITIS B SURFACE AG NON-REACTIVE NON-REACT CONSUELO 09/23/2023 5:44 PM APPLICATION DEVELOPER [facility] HEP B CORE TOTAL AB NON-REACTIVE NON-REACT CONSUELO 09/23/2023 5:44 PM APPLICATION DEVELOPER [facility] HEP B SURFACE AB REACTIVE 09/23/2023 5:46 PM APPLICATION DEVELOPER [facility] HAV IGM NON-REACTIVE NON-REACT CONSUELO 09/23/2023 5:44 PM APPLICATION DEVELOPER [facility] HEPATITIS C AB NON-REACTIVE NON-REACT CONSUELO 09/23/2023 5:44 PM APPLICATION DEVELOPER [facility] 09/23/2023 3:47 PM APPLICATION DEVELOPER us Alfa Marrero DO LABORATORY Final Result [facility] [address] [place] [address], [place] [phone] from Last 3 Months or Most Recently Relevant to Health Maintenance Insurance [employer] Member Subscriber Plan / Payer (Ef fective 2021-Present) Name:Roma Clayton Relation to Subscriber:Spouse Name:Dorota Clayton Date of :1988 Address: [address] [place], [place] [id number] Payer ID:[id number] (NAIC) Type:Not on file Address: [place] [id number] Advance Directives * Full Code (Latest Code [...] 11:09 AM 02/04/2022 2:50 PM Care Teams Digital Forensics Examiner Relationship Specialty Start Date End Date Keith Silva MD [address] [place] [address] PCP - General FAMILY PRACTICE 11/15/20
--- OUTSIDE RECORDS SUMMARY | 2024-11-06 05:15 | XMS_ITS | Clinical Summary ---
Author Organization [facility] Address [address] [facility] [place] [address] Care Team Providers Care Academic Specialist Name Role Phone Keith Silva MD Primary Care Provider Source Comments [facility],non-owned Affiliates and Associated Physician Practices is amultiple site organization consisting of ambulatory clinics and hospital sitesin [place], [place], [place] and [place]. This disclosure is being madepursuant to the Care Everywhere program and may not contain all information available regarding this patient. Last updated 18.[facility] Allergies Active Allergy Reactions Criticality Noted Date [...] care, and heating? Not very hard 02/10/2024 [facility] of Occupat ional Health - Occupational Stress [...] in a senior living (including now)? No 02/10/2024 Comments Unknown Sex [...] age to complete this [place] [address] [facility] Advance Directives * Full Code (Latest Code Status on File) Date Activated Date Inactivated Comments 02/10/2024 10:27 PM 02/13/2024 2:06 PM Care Teams Academic Specialist Relationship Specialty Start Date End Date Keith Silva MD [address] [place] [phone] PCP - General Family Medicine 02/10/24
[2024-11-06 05:23] LABS: Add Urine Microscopic? YES; Appearance Urine Cloudy (Clear); Bacteria Urine 2+ /hpf; Bilirubin Urine 1+ (Negative); Blood Urine Negative (Negative); Budding Yeast Urine Present /hpf; Calcium Oxalate Crystals Urine Present /hpf; Color Urine Dark Yellow (Yellow); Glucose Urine UA Negative (Negative); Ketones Urine Trace mg/dL (Negative); Leukocyte Esterase Ur Trace LEU/UL (Negative); Need Manual Microscopic Reviewed; Nitrate Urine Negative (Negative); Protein Urine Negative (Negative); RBC Urine 0-2 /hpf (0-2); Specific Grav Ur 1.027 (1.001-1.035); Squamous Epithelial Cell Urine Moderate /hpf (Few); WBC Urine 0-5 /hpf (0-3); pH Urine 5.5 (5.0-9.0)
[2024-11-06 05:26] LABS: Alanine Aminotransferase 20 U/L (6-35); Albumin Level 4.6 g/dL (3.5-5.1); Alkaline Phosphatase 78 U/L (38-126); Anion Gap 12 mmol/L (4-12); Aspartate Amino Transferase 24 U/L (14-36); Bilirubin,Total 0.7 mg/dL (0.2-1.3); Blood Urea Nitrogen 17 mg/dL (7-17); Calcium 9.5 mg/dL (8.4-10.2); Carbon Dioxide 26 mmol/L (22-30); Chloride 104 mmol/L (98-107); Estimated CRCL calculation 94 ml/min; Estimated Glomerular Filt Rate > 60; Glucose 120 mg/dL (65-110); Lipase 41 U/L (23-300); Potassium 3.9 mmol/L (3.4-5.0); Sodium 142 mmol/L (137-145)
[2024-11-06 05:27] LABS: Lactic Acid Reflex 1.1 mmol/L (0.7-2.0)
[2024-11-06 05:46] LABS: Band Neutrophils Percent 0 % (0-6); Ovalocytes 1+; Platelet Estimate Slightly Increased (Adequate); Schistocytes None Seen
[2024-11-06 06:55] VITALS: PULSE 66; RESP 20; O2SAT 97
== END 2024-11-06 06:55 | disposition home or self-care (01) ==
PROVIDERS: Emergency Provider Emergency Medicine; PCP Family Medicine
DX: K52.9 Noninfective gastroenteritis and colitis, unspecified (principal); R11.2 Nausea with vomiting, unspecified; F17.210 Nicotine dependence, cigarettes, uncomplicated; J45.909 Unspecified asthma, uncomplicated; F41.9 Anxiety disorder, unspecified; I10 Essential (primary) hypertension; K76.0 Fatty (change of) liver, not elsewhere classified; K21.9 Gastro-esophageal reflux disease without esophagitis; D64.9 Anemia, unspecified
CPT/HCPCS: 36415; 74177; 80053; 81001; 81025; 83605; 83690; 85025; 96361; 96372; 96374; 96375; 99284; J0500; J0780; J1171; J7030; Q9967

== ENCOUNTER 2025-03-10 02:46 | Inpatient (IN) | payer OTHER, SELFPAY ==
[2025-03-10] VITALS (9 sets, daily range): BP systolic 127–166; BP diastolic 63–102; PULSE 60–85; RESP 16–22; TEMP 35.8–36.6; O2SAT 95–100; BMI 55.8
--- NOTE | ~2025-03-10 | CT_ITS ---
EXAMINATION: CT abdomen pelvis w con DATE: 03/10/2025 05:17 INDICATION: Abdominal pain, nausea and vomiting TECHNIQUE: Computed tomography (CT) of the abdomen and pelvis was performed with 100 mL Omnipaque-350 intravenous contrast. Automated exposure control and iterative reconstruction technique were employed. The dose-length product was 1499.58 mGy-cm. COMPARISON: 11/06/2024 and 08/13/2022 FINDINGS: Lung bases are clear. Heart size is normal. No pericardial or pleural effusion. Cholecystectomy clips the gallbladder fossa. Liver, spleen, pancreas, right adrenal gland and right kidney are normal. 1.4 cm left adrenal adenoma, unchanged since 08/05/2022. 6 stones clustered in an upper pole calyx of the right kidney measuring up to 8 mm with additional 5 mm stone second upper pole calyx. No ureteral stones or hydronephrosis. 5 cm uterine fibroid. Bladder is normal. There is now more extensive small bowel wall thickening beginning at the mid jejunum and extending to the mid ileum. The terminal ileum remains normal. There are a few diverticula without adjacent from trace stranding along the descending and sigmoid colon. Small amount of likely reactive ascites in the deep pelvis. No abscess or free intraperitoneal gas. No pathologically enlarged abdominal or pelvic lymphadenopathy. Tampon within the vaginal vault. Mild lumbar and lower thoracic spondylosis. IMPRESSION: 1. Extensive small bowel wall thickening extending from the mid jejunum to the mid ileum consistent with likely acute on chronic enteritis in this patient with reported known history of Crohn's disease. 2. Small amount of likely reactive free fluid in the deep pelvis. No abscess or free intraperitoneal gas. 3. Nonspecific nephrolithiasis in the left kidney. 4. Uterine fibroid. Reviewed, dictated and finalized at location A. IMPRESSION: 1. Extensive small bowel wall thickening extending from the mid jejunum to the mid ileum consistent with likely acute on chronic enteritis in this patient wit h reported known history of Crohn's disease. 2. Small amount of likely reactive free fluid in the deep pelvis. No abscess or free intraperitoneal gas. 3. Nonspecific nephrolithiasis in the left kidney. 4. Uterine fibroid.
--- NOTE | 2025-03-10 03:17 | ED.GENADULT ---
HPI - General Adult General Chief complaint: Nausea/Vomiting/Diarrhea <Isabel Pérez MD - Last Filed: 03/10/25 23:11> Stated complaint: vomiting <Isabel Pérez MD - Last Filed: 03/10/25 23:11> Time Seen by Provider: 03/10/25 02:49 <Isabel Pérez MD - Last Filed: 03/10/25 23:11> History of Present Illness HPI narrative: Patient is a 45-year-old female who presents to the emergency department this evening complaining of nausea, vomiting and abdominal pain which started around 9:00 p.m.. Patient states that she has a history of Crohn's disease and history of small-bowel obstructions and states that this feels similar. Patient also does admit that she uses marijuana frequently. Denies any recent illness, fevers or chills. <Isabel Pérez MD - Last Filed: 03/10/25 23:11> Related Data Home medications: Home Medications ?Medication ?Instructions ?Recorded ?Confirmed ?Last Taken ?Type amlodipine 10 mg tablet 10 mg PO DAILY 11/22/23 03/10/25 03/09/25 History hydrochlorothiazide 25 mg tablet 25 mg PO DAILY 11/22/23 07/25/24 07/24/24 History <Isabel Pérez MD - Last Filed: 03/10/25 23:11> Allergies/adverse reactions: Allergies Allergy/AdvReac Type Severity Reaction Status Date / Time Penicillins Allergy Unknown Rash Verified 03/10/25 04:30 morphine AdvReac Nausea and Verified 03/10/25 04:30 Vomiting <Isabel Pérez MD - Last Filed: 03/10/25 23:11> Review of Systems Review of Systems: All systems are reviewed and are negative unless stated otherwise in the HPI. <Isabel Pérez MD - Last Filed: 03/10/25 23:11> PMFSH Past Medical History Medical History: Medical History Asthma Anxiety Port-A-Cath in place History of right sided Port-A-Cath with subsequent removal placed 2011 removed proximally 2017. Placed due to poor vascular access. Crohn's disease of small intestine with complication Hypertension History of small bowel obstruction Has been treated conservatively and also required surgical intervention x 2 with adhesiolysis. Tobacco abuse Menorrhagia Hepatic steatosis Nephrolithiasis Morbid obesity 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 GERD with esophagitis Anemia Abdominal wall cellulitis <Isabel Pérez MD - Last Filed: 03/10/25 23:11> Surgical History Surgical History: Surgical History Status post laparoscopic hernia repair laparoscopic ventral hernia repair with mesh History of exploratory laparotomy Has had what sounds like an exploratory laparotomy with adhesiolysis x 2 in [facility]. History of tonsillectomy History of appendectomy Appendix removed during 2nd exploratory laparotomy. History of cholecystectomy Laparoscopic <Isabel Pérez MD - Last Filed: 03/10/25 23:11> Family History Family History: Family History Father Diabetes mellitus Mother Hypertension Sibling No problems noted. Other Crohn's colitis <Isabel Pérez MD - Last Filed: 03/10/25 23:11> Social History Social History: Social History Social History: Surrogate decision maker: Dorota Clayton () Code status: Full code. Smoking packs per day: 0.1 Smoking cigarettes per day: 2.0 Years smoked: 16 Smoking pack-years: 1.60 Smoking status: Current every day smoker Tobacco type: cigarettes Second hand tobacco smoke exposure: No Alcohol intake: current Drinks per week: 1 Alcohol use details: 1-2 alcoholic beverages every 1-2 months. Substance use: current Substance use type: marijuana Other substance usage details: smokes marijauna every day Do You Feel Safe in your Home?: Yes Lack of Transportation: No Lack of Food: Never True Current Housing: I Have Housing Concerned About Future Housing: Decline to Answer Difficulty Paying Gas/Electric Bills: Decline to Answer Difficulty Paying for Meds: Decline to Answer Currently Unemployed: Decline to Answer Education: High School Diploma/GED Difficulty w/ Childcare or Family Care: No Living arrangements: with family Additional living arrangements comments: Lives in [place] with her fiance. Recently moved to the area from [facility]. Occupation/Education: other Additional occupation/education comments: Unemployed. Spiritual care concerns: No <Isabel Pérez MD - Last Filed: 03/10/25 23:11> Exam Narrative: General: Alert, awake, afebrile, actively dry heaving, hysterical. HEENT: PERRL, no rhinorrhea, no post nasal drip, oropharynx clear. Neck: Trachea midline, no JVD, no lymphadenopathy. Cardiovascular: Regular rate and rhythm, no murmurs, rubs or gallops, no peripheral edema. Respiratory: Clear to auscultation bilaterally, no tachypnea, no wheezing, no rhonchi, no rubs, no respiratory distress. Abdomen: Soft, nontender, nondistended, no rebound, no guarding, no peritoneal signs. Musculoskeletal: No joint swelling or deformity, normal muscle tone. Skin: No rashes or petechia, no signs of infection. Psychiatric: Alert and oriented, normal behavior and judgment for situation. Neurological: Alert and oriented to person, place, and time. Follows all commands. No focal deficits, speech is clear and fluent. <Isabel Pérez MD - Last Filed: 03/10/25 23:11> Course Reevaluation(s) Reevaluation #1: On re-evaluation, patient reporting a lot of nausea vomiting, I did give her dose of droperidol, especially since given her extensive marijuana use I suspect component of cannabinoid hyperemesis. On re-evaluation the nausea has improved but she still has abdominal pain, on shared decision-making, patient would like to be admitted which I think is quite reasonable, her CT does show enteritis, acute on chronic, likely Crohn's flare. I did give a dose of Solu-Medrol IV. Case discussed with her glove stitcher who agrees to consult, and with the hospitalist who agrees to admit. <Jana Modi MD - Last Filed: 03/10/25 08:50> Vital Signs Vital signs: Vital Signs Temperature 97.7 F 03/10/25 03:02 Pulse Rate 85 03/10/25 03:02 Respiratory Rate 22 H 03/10/25 03:02 Blood Pressure 164/87 H 03/10/25 03:02 Pulse Oximetry 97 03/10/25 03:02 Oxygen Delivery Room Air 03/10/25 03:02 Temperature 97.6 F 03/10/25 20:46 Pulse Rate 60 03/10/25 20:46 Respiratory Rate 20 03/10/25 20:46 Blood Pressure 142/63 H 03/10/25 20:46 Pulse Oximetry 100 03/10/25 20:46 Oxygen Delivery Room Air 03/10/25 20:00 <Isabel Pérez MD - Last Filed: 03/10/25 23:11> Vital Signs Temperature 97.7 F 03/10/25 03:02 Pulse Rate 85 03/10/25 03:02 Respiratory Rate 22 H 03/10/25 03:02 Blood Pressure 164/87 H 03/10/25 03:02 Pulse Oximetry 97 03/10/25 03:02 Oxygen Delivery Room Air 03/10/25 03:02 Temperature 97.6 F 03/10/25 20:46 Pulse Rate 60 03/10/25 20:46 Respiratory Rate 20 03/10/25 20:46 Blood Pressure 142/63 H 03/10/25 20:46 Pulse Oximetry 100 03/10/25 20:46 Oxygen Delivery Room Air 03/10/25 20:00 <Jana Modi MD - Last Filed: 03/10/25 08:50> Medical Decision Making MDM Narrative Medical decision making narrative: The patient was evaluated by myself in the emergency department. History is obtained from patient who is an independent historian and physical exam was performed. External medical records were reviewed at this time. IV was established and pertinent tests were ordered. Patient was administered a total of 4 mg of IV morphine and 4 mg of IV Zofran. Patient continues to complain of nausea and dry heaving at this time she was administered 10 mg of IV Reglan and 25 mg of IV Benadryl. Laboratory results obtained revealing a leukocytosis of 22, magnesium of 1.4, otherwise unremarkable. Patient was administered 2 g of IV magnesium at this time. Imaging studies obtained included CT abdomen pelvis with IV contrast which is currently pending. Patient was signed out a.m. ED physician pending remainder of the workup. <Isabel Pérez MD - Last Filed: 03/10/25 23:11> Vital Signs Vital Signs: Vital Signs Temperature 97.7 F 03/10/25 03:02 Pulse Rate 85 03/10/25 03:02 Respiratory Rate 22 H 03/10/25 03:02 Blood Pressure 164/87 H 03/10/25 03:02 Pulse Oximetry 97 03/10/25 03:02 Oxygen Delivery Room Air 03/10/25 03:02 Temperature 97.6 F 03/10/25 20:46 Pulse Rate 60 03/10/25 20:46 Respiratory Rate 20 03/10/25 20:46 Blood Pressure 142/63 H 03/10/25 20:46 Pulse Oximetry 100 03/10/25 20:46 Oxygen Delivery Room Air 03/10/25 20:00 <Isabel Pérez MD - Last Filed: 03/10/25 23:11> Vital Signs Temperature 97.7 F 03/10/25 03:02 Pulse Rate 85 03/10/25 03:02 Respiratory Rate 22 H 03/10/25 03:02 Blood Pressure 164/87 H 03/10/25 03:02 Pulse Oximetry 97 03/10/25 03:02 Oxygen Delivery Room Air 03/10/25 03:02 Temperature 97.6 F 03/10/25 20:46 Pulse Rate 60 03/10/25 20:46 Respiratory Rate 20 03/10/25 20:46 Blood Pressure 142/63 H 03/10/25 20:46 Pulse Oximetry 100 03/10/25 20:46 Oxygen Delivery Room Air 03/10/25 20:00 <Jana Modi MD - Last Filed: 03/10/25 08:50> Lab Data Result diagrams: 03/10/25 03:48 03/10/25 03:48 <Isabel Pérez MD - Last Filed: 03/10/25 23:11> Labs: Lab Results 03/10/25 03/10/25 03/10/25 Range/Units 03:48 03:48 03:48 WBC 22.4 H (4.5-10.0) K/mm3 RBC 5.26 (4.2-5.4) M/mm3 Hgb 12.6 (12.0-15.0) g/dL Hct 40.1 (37.0-47.0) % MCV 76.2 L (80-100) fl MCH 24.0 L (26-34) pg MCHC 31.4 L (32-36) g/dl RDW 19.5 H (11.5-14.5) % Plt Count 445 H (150-375) k/mm3 MPV 9.3 (7.4-10.4) fl Immature Gran % (Auto) 0.3 (0-0.5) % Neut % (Auto) 84.6 H (45.5-73.1) % Lymph % (Auto) 8.7 L (18.3-44.2) % Miner % (Auto) 5.9 (2.6-8.5) % Eos % (Auto) 0.2 (0-4.4) % Baso % (Auto) 0.3 (0.2-1.2) % Lymph # (Auto) 1.95 (0.9-3.2) K/mm3 Miner # (Auto) 1.3 H (0.1-0.6) K/mm3 Eos # (Auto) 0.0 (0-0.3) K/mm3 Baso # (Auto) 0.1 (0.0-0.1) K/mm3 Abs Immat Gran (auto) 0.07 H (0.00-0.031) K/mm3 Absolute Neuts (auto) 18.9 H (1.3-6.7) K/mm3 Absolute Nucleated RBC 0.000 (0.0-0.012) K/mm3 Band Neutrophils % Not Reportable Nucleated RBC % 0.0 (0.0-0.2) % Platelet Estimate Increased (Adequate) Clumped Platelets Present Anisocytosis 1+ Microcytosis 1+ (NORMAL) Ovalocytes Occasional Schistocytes None seen Sodium 137 (137-145) mmol/L Potassium 4.0 (3.4-5.0) mmol/L Chloride 105 (98-107) mmol/L Carbon Dioxide 19 L (22-30) mmol/L Anion Gap 13 H (4-12) mmol/L BUN 15 (7-17) mg/dL Creatinine 0.96 (0.7-1.0) mg/dL Estim Creat Clear Calc 93 ml/min Estimated GFR > 60 (59 - ) Glucose 212 H (65-110) mg/dL Calcium 10.1 (8.4-10.2) mg/dL Magnesium 1.4 L Cancelled (1.6-2.3) mg/dL Total Bilirubin 0.8 (0.2-1.3) mg/dL AST 25 (14-36) U/L ALT 16 (6-35) U/L Alkaline Phosphatase 85 (38-126) U/L Total Protein 8.7 H (6.3-8.2) g/dL Albumin 4.7 (3.5-5.1) g/dL Lipase 62 Cancelled (23-300) U/L Serum HCG, Qual Negative Urine Color (Yellow) Urine Appearance (Clear) Urine pH (5.0-9.0) Ur Specific [place] (1.001-1.035) Urine Protein (Negative) mg/dL Urine Glucose (UA) (Negative) mg/dL Urine Ketones (Negative) mg/dL Ur Blood (Man) (Negative) Urine Nitrate (Negative) Urine Bilirubin (Negative) Urine Urobilinogen (<2.0) mg/dL Leukocyte Esterase Rfl (Negative) JOANNE/UL Urine RBC (0-2) /hpf Urine WBC (0-3) /hpf Ur Squamous Epith Cells (Few) /hpf Urine Bacteria /hpf Urine Casts 03/10/ Range/Units 06:42 WBC (4.5-10.0) K/mm3 RBC (4.2-5.4) M/mm3 Hgb (12.0-15.0) g/dL Hct (37.0-47.0) % MCV (80-100) fl MCH (26-34) pg MCHC (32-36) g/dl RDW (11.5-14.5) % Plt Count (150-375) k/mm3 MPV (7.4-10.4) fl Immature Gran % (Auto) (0-0.5) % Neut % (Auto) (45.5-73.1) % Lymph % (Auto) (18.3-44.2) % Miner % (Auto) (2.6-8.5) % Eos % (Auto) (0-4.4) % Baso % (Auto) (0.2-1.2) % Lymph # (Auto) (0.9-3.2) K/mm3 Miner # (Auto) (0.1-0.6) K/mm3 Eos # (Auto) (0-0.3) K/mm3 Baso # (Auto) (0.0-0.1) K/mm3 Abs Immat Gran (auto) (0.00-0.031) K/mm3 Absolute Neuts (auto) (1.3-6.7) K/mm3 Absolute Nucleated RBC (0.0-0.012) K/mm3 Band Neutrophils % Nucleated RBC % (0.0-0.2) % Platelet Estimate (Adequate) Clumped Platelets Anisocytosis Microcytosis (NORMAL) Ovalocytes Schistocytes Sodium (137-145) mmol/L Potassium (3.4-5.0) mmol/L Chloride (98-107) mmol/L Carbon Dioxide (22-30) mmol/L Anion Gap (4-12) mmol/L BUN (7-17) mg/dL Creatinine (0.7-1.0) mg/dL Estim Creat Clear Calc ml/min Estimated GFR (59 - ) Glucose (65-110) mg/dL Calcium (8.4-10.2) mg/dL Magnesium (1.6-2.3) mg/dL Total Bilirubin (0.2-1.3) mg/dL AST (14-36) U/L ALT (6-35) U/L Alkaline Phosphatase (38-126) U/L Total Protein (6.3-8.2) g/dL Albumin (3.5-5.1) g/dL Lipase (23-300) U/L Serum HCG, Qual Urine Color Yellow (Yellow) Urine Appearance Clear (Clear) Urine pH 6.0 (5.0-9.0) Ur Specific [place] > 1.045 H (1.001-1.035) Urine Protein Negative (Negative) mg/dL Urine Glucose (UA) Negative (Negative) mg/dL Urine Ketones Negative (Negative) mg/dL Ur Blood (Man) 2+ H (Negative) Urine Nitrate Negative (Negative) Urine Bilirubin Negative (Negative) Urine Urobilinogen 0.2 (<2.0) mg/dL Leukocyte Esterase Rfl Negative (Negative) JOANNE/UL Urine RBC 0-2 (0-2) /hpf Urine WBC 0-5 (0-3) /hpf Ur Squamous Epith Cells None seen (Few) /hpf Urine Bacteria None seen /hpf Urine Casts 0-2 <Isabel Pérez MD - Last Filed: 03/10/25 23:11> Lab Results 03/10/25 03/10/25 03/10/25 Range/Units 03:48 03:48 03:48 WBC 22.4 H (4.5-10.0) K/mm3 RBC 5.26 (4.2-5.4) M/mm3 Hgb 12.6 (12.0-15.0) g/dL Hct 40.1 (37.0-47.0) % MCV 76.2 L (80-100) fl MCH 24.0 L (26-34) pg MCHC 31.4 L (32-36) g/dl RDW 19.5 H (11.5-14.5) % Plt Count 445 H (150-375) k/mm3 MPV 9.3 (7.4-10.4) fl Immature Gran % (Auto) 0.3 (0-0.5) % Neut % (Auto) 84.6 H (45.5-73.1) % Lymph % (Auto) 8.7 L (18.3-44.2) % Miner % (Auto) 5.9 (2.6-8.5) % Eos % (Auto) 0.2 (0-4.4) % Baso % (Auto) 0.3 (0.2-1.2) % Lymph # (Auto) 1.95 (0.9-3.2) K/mm3 Miner # (Auto) 1.3 H (0.1-0.6) K/mm3 Eos # (Auto) 0.0 (0-0.3) K/mm3 Baso # (Auto) 0.1 (0.0-0.1) K/mm3 Abs Immat Gran (auto) 0.07 H (0.00-0.031) K/mm3 Absolute Neuts (auto) 18.9 H (1.3-6.7) K/mm3 Absolute Nucleated RBC 0.000 (0.0-0.012) K/mm3 Band Neutrophils % Not Reportable Nucleated RBC % 0.0 (0.0-0.2) % Platelet Estimate Increased (Adequate) Clumped Platelets Present Anisocytosis 1+ Microcytosis 1+ (NORMAL) Ovalocytes Occasional Schistocytes None seen Sodium 137 (137-145) mmol/L Potassium 4.0 (3.4-5.0) mmol/L Chloride 105 (98-107) mmol/L Carbon Dioxide 19 L (22-30) mmol/L Anion Gap 13 H (4-12) mmol/L BUN 15 (7-17) mg/dL Creatinine 0.96 (0.7-1.0) mg/dL Estim Creat Clear Calc 93 ml/min Estimated GFR > 60 (59 - ) Glucose 212 H (65-110) mg/dL Calcium 10.1 (8.4-10.2) mg/dL Magnesium 1.4 L Cancelled (1.6-2.3) mg/dL Total Bilirubin 0.8 (0.2-1.3) mg/dL AST 25 (14-36) U/L ALT 16 (6-35) U/L Alkaline Phosphatase 85 (38-126) U/L Total Protein 8.7 H (6.3-8.2) g/dL Albumin 4.7 (3.5-5.1) g/dL Lipase 62 Cancelled (23-300) U/L Serum HCG, Qual Negative Urine Color (Yellow) Urine Appearance (Clear) Urine pH (5.0-9.0) Ur Specific [place] (1.001-1.035) Urine Protein (Negative) mg/dL Urine Glucose (UA) (Negative) mg/dL Urine Ketones (Negative) mg/dL Ur Blood (Man) (Negative) Urine Nitrate (Negative) Urine Bilirubin (Negative) Urine Urobilinogen (<2.0) mg/dL Leukocyte Esterase Rfl (Negative) JOANNE/UL Urine RBC (0-2) /hpf Urine WBC (0-3) /hpf Ur Squamous Epith Cells (Few) /hpf Urine Bacteria /hpf Urine Casts /25/ Range/Units 06:42 WBC (4.5-10.0) K/mm3 RBC (4.2-5.4) M/mm3 Hgb (12.0-15.0) g/dL Hct (37.0-47.0) % MCV (80-100) fl MCH (26-34) pg MCHC (32-36) g/dl RDW (11.5-14.5) % Plt Count (150-375) k/mm3 MPV (7.4-10.4) fl Immature Gran % (Auto) (0-0.5) % Neut % (Auto) (45.5-73.1) % Lymph % (Auto) (18.3-44.2) % Miner % (Auto) (2.6-8.5) % Eos % (Auto) (0-4.4) % Baso % (Auto) (0.2-1.2) % Lymph # (Auto) (0.9-3.2) K/mm3 Miner # (Auto) (0.1-0.6) K/mm3 Eos # (Auto) (0-0.3) K/mm3 Baso # (Auto) (0.0-0.1) K/mm3 Abs Immat Gran (auto) (0.00-0.031) K/mm3 Absolute Neuts (auto) (1.3-6.7) K/mm3 Absolute Nucleated RBC (0.0-0.012) K/mm3 Band Neutrophils % Nucleated RBC % (0.0-0.2) % Platelet Estimate (Adequate) Clumped Platelets Anisocytosis Microcytosis (NORMAL) Ovalocytes Schistocytes Sodium (137-145) mmol/L Potassium (3.4-5.0) mmol/L Chloride (98-107) mmol/L Carbon Dioxide (22-30) mmol/L Anion Gap (4-12) mmol/L BUN (7-17) mg/dL Creatinine (0.7-1.0) mg/dL Estim Creat Clear Calc ml/min Estimated GFR (59 - ) Glucose (65-110) mg/dL Calcium (8.4-10.2) mg/dL Magnesium (1.6-2.3) mg/dL Total Bilirubin (0.2-1.3) mg/dL AST (14-36) U/L ALT (6-35) U/L Alkaline Phosphatase (38-126) U/L Total Protein (6.3-8.2) g/dL Albumin (3.5-5.1) g/dL Lipase (23-300) U/L Serum HCG, Qual Urine Color Yellow (Yellow) Urine Appearance Clear (Clear) Urine pH 6.0 (5.0-9.0) Ur Specific [place] > 1.045 H (1.001-1.035) Urine Protein Negative (Negative) mg/dL Urine Glucose (UA) Negative (Negative) mg/dL Urine Ketones Negative (Negative) mg/dL Ur Blood (Man) 2+ H (Negative) Urine Nitrate Negative (Negative) Urine Bilirubin Negative (Negative) Urine Urobilinogen 0.2 (<2.0) mg/dL Leukocyte Esterase Rfl Negative (Negative) JOANNE/UL Urine RBC 0-2 (0-2) /hpf Urine WBC 0-5 (0-3) /hpf Ur Squamous Epith Cells None seen (Few) /hpf Urine Bacteria None seen /hpf Urine Casts 0-2 <Jana Modi MD - Last Filed: 03/10/25 08:50> Discharge Plan Discharge Clinical Impression: Nausea and vomiting in adult, Crohn's colitis Abdominal pain Qualifiers: Abdominal location: generalized Qualified Code(s): R10.84 - Generalized abdominal pain <Isabel Pérez MD - Last Filed: 03/10/25 23:11> Patient Disposition: Still a Patient <Isabel Pérez MD - Last Filed: 03/10/25 23:11> Condition: Improved <Isabel Pérez MD - Last Filed: 03/10/25 23:11>
[2025-03-10] MEDS: SODIUM CHLORIDE 0.9% IV 1,000 ML 999 ML IV CONT (03:39)
[2025-03-10] MEDS: ONDANSETRON INJ 4 MG/2 ML VIAL IV PUSH (03:39)
[2025-03-10] MEDS: MORPHINE SULFATE (*CRX) 2 MG/ML INJ IV PUSH ×3 (03:45→06:40)
[2025-03-10 04:03] LABS: Hematocrit 40.1 % (37.0-47.0); Hemoglobin 12.6 g/dL (12.0-15.0); Immature Granulocyte Percent A 0.3 % (0-0.5); Lymphocytes Absolute Auto 1.95 K/mm3 (0.9-3.2); Mean Corpuscular HGB Conc 31.4 g/dl (32-36); Mean Corpuscular Hemoglobin 24.0 pg (26-34); Mean Corpuscular Volume 76.2 fl (80-100); Nucleated Red Blood Cells Absolute Auto 0.000 K/mm3 (0.0-0.012); Nucleated Red Blood Cells Perc 0.0 % (0.0-0.2); Platelet Count Result 445 k/mm3 (150-375); Red Blood Count 5.26 M/mm3 (4.2-5.4); White Blood Count 22.4 K/mm3 (4.5-10.0)
[2025-03-10 04:23] LABS: Alanine Aminotransferase 16 U/L (6-35); Albumin Level 4.7 g/dL (3.5-5.1); Alkaline Phosphatase 85 U/L (38-126); Anion Gap 13 mmol/L (4-12); Aspartate Amino Transferase 25 U/L (14-36); Bilirubin,Total 0.8 mg/dL (0.2-1.3); Blood Urea Nitrogen 15 mg/dL (7-17); Calcium 10.1 mg/dL (8.4-10.2); Carbon Dioxide 19 mmol/L (22-30); Chloride 105 mmol/L (98-107); Estimated CRCL calculation 93 ml/min; Estimated Glomerular Filt Rate > 60; Glucose 212 mg/dL (65-110); Lipase 62 U/L (23-300); Magnesium 1.4 mg/dL (1.6-2.3); Potassium 4.0 mmol/L (3.4-5.0); Sodium 137 mmol/L (137-145); Total Protein 8.7 g/dL (6.3-8.2)
[2025-03-10 04:36] LABS: SPREG INTERNAL CONTROL Positive; Serum Qual hCG Negative
[2025-03-10] MEDS: MAGNESIUM SULF 2 GM/WATER 50ML 2 GM/50 ML BAG IVPB ×2 (04:39→18:11)
[2025-03-10] MEDS: METOCLOPRAMIDE HCL INJ 10 MG/2 ML VIAL IV PUSH (04:39)
[2025-03-10 04:40] LABS: Anisocytosis 1+
[2025-03-10 04:41] LABS: Microcytosis 1+ (NORMAL); Ovalocytes Occasional; Schistocytes None Seen
[2025-03-10 06:52] LABS: Add Urine Microscopic? YES; Appearance Urine Clear (Clear); Glucose Urine UA Negative (Negative); Leukocyte Esterase Ur Negative LEU/UL (Negative); Nitrate Urine Negative (Negative); Non Pathogenic Casts 0-2; Specific Grav Ur > 1.045 (1.001-1.035)
--- NOTE | 2025-03-10 07:05 | PC.NURSE ---
Assumed care of pt from [facility]. Pt sleeping quietly.
--- NOTE | 2025-03-10 09:44 | P.CONGI_ITS ---
Assessment and Plan Assessment and plan (1) Crohn's disease: Qualifiers: Digestive disease complication type: with intestinal obstruction G astrointestinal tract location: small intestine Qualified Code(s): K50.012 - Crohn's disease of small intestine with intestinal obstruction Code(s): K50.90 - Crohn's disease, unspecified, without complications Status: Acute (2) Nausea and vomiting: Qualifiers: Vomiting type: unspecified Qualified Code(s): R11.2 - Nausea with vomiting, unspecified Code(s): R11.2 - Nausea with vomiting, unspecified Status: Acute (3) Abdominal pain: Qualifiers: Abdominal location: generalized Qualified Code(s): R10.84 - Generalized abdominal pain Code(s): R10.9 - Unspecified abdominal pain Status: Acute (4) Enteritis: Code(s): K52.9 - Noninfective gastroenteritis and colitis, unspecified Status: Acute Plan 1. Crohn's small bowel/enteritis/generalized abdominal pain/nausea/vomiting: C olonoscopy 05/16/2023 was normal. EGD over 5 years ago was unremarkable. Capsule endoscopy 10/30/2023 was normal. Diagnosed with Crohn's 7-8 years ago previously on Humira x3 years. Last time fecal calprotectin was checked in November 2023 was elevated at 901. Patient has been seen by GI during multiple [place] admissions this year. She was last seen in our office by Dr. Doll in August at which time her Stelara dosing was changed from every 8 weeks to every 4 weeks. Patient states that she got her Stelara on a q4 week schedule x 2 doses but had minimal improvement before it was discontinued. Since the beginning of the year the patient has been seen at multiple hospitals including [place], [facility], [place], and [facility]. Sometime around September the patient states that her Stelara was discontinued during a hospitalization because it wasn't working and she has been off her IBD medications since that time. Per patient she recently had an EGD and colonoscopy which were preformed during her admission to [facility] and per patient scopes were normal, which is not unexpected as her disease is limited to her small bowel. She presented to the ER today with complaints of nausea, vomiting and abdominal pain. CT showed extensive small bowel wall thickening extending from the mid jejunum to the mid ileum consistent with likely acute on chronic enteritis in this patient with reported known history of Crohn's disease and small amount of likely reactive free fluid in the deep pelvis. No abscess or free intraperitoneal gas. Labs show normal BMP, LFT's and lipase. WBC's 22, Hgb 13, Hct 40, MCV 76 and platelets 445. Patient received methylprednisolone since admission but we have to use steroids sparingly because she typically does not tolerate them well. Currently on antibiotics (levofloxacin and Flagyl). * Patient advised that she needs to follow up with me outpatient after she is discharged as we need to restart her IBD medications. Will try switching her to Tremfya as we would be able to access patient assistance to help her get started on the medication * I have also put in a referral to [facility] IBD clinic for recommendations on alternative treatment options vs dual therapy if she does not respond to Tremfya * continue antibiotics * TB and Hep B labs ordered as they were last checked in 2023 and will likely need these results for her insurance upon changes to treatment * primary care team to continue supportive care to include pain management and antiemetics Thank you very much for allowing me to share in the care of this very nice patient. This report may have been done utilizing a voice recognition system. Attempts have been made to correct errors. However, there may be uncorrected grammatical, spelling, and recognition errors present. GI Consult Note Consult date/time: 03/10/25 09:44 Reason for consult: Nausea/vomiting/abdominal pain HPI: This is a very pleasant 45 year old female with past medical surgical history of Crohn's disease, small bowel obstruction, GERD, HTN, anxiety, obesity, cholecystectomy, and hernia repair. She presented to the ER today with complaints of nausea, vomiting and abdominal pain and thought she may have an obstruction. GI has been consulted for these symptoms. Patient was seen with her Dorota throughout the entire visit. Patient with a Hx of exploratory bowel surgery around 12 years ago in [facility] at which time she was advised she had small bowel adhesions/strictures but no bowel resection was performed. Following her surgery she went approximately 4 years before she was diagnosed with Crohn's disease. Crohn's diagnosis was based on the current small bowel obstructions and elevated fecal calprotectin. She was diagnosed with Crohn's approximately 7-8 years ago she had been on Humira for approximately 3 years and had been doing well before she lost response and it was discontinued. Patient has been seen by GI during multiple [place] Hospitalization. She was last seen in the GI office by Dr. Doll 08/20/2024 at which time our office was working to get her Stelara changed from every 8 weeks to monthly. According to the patient and her she has been seen at multiple hospitals since the beginning of the year. In August she was seen at [place], [facility] and [facility]. The exact dates of these different visit it unknown. Per patient during one of her admissions to [facility] she had an EGD and colonoscopy which per patient was unremarkable, which is not surprising given that her disease is in her small bowel. But following her office visit with Dr. Doll in August she was able to start her Stelara with monthly dosing but only took 2 doses without significant improvement and then her Stelara was supposedly stopped in September after a visit to either [facility] or [facility] and she has been off her IBD medications since that time. Patient states that recently her most problematic symptoms has been nausea and vomiting which she has been managing with Compazine and Zofran as needed but her IBD symptoms were no severe enough to bring her to the ER since November. Nausea and vomiting has improved since admission. She is still having generalized abdominal pain. She is having multiple loose BM's daily that are urgent but do not have a direct correlation with food intake. Denies hematochezia or melena. Denies swallowing difficulty, weight loss, appetite loss, constipation or reflux. She denies tobacco or alcohol use but uses marijuana daily. Family Hx negative for CRC or IBD. Denies NSAID, aspirin or anticoagulant use. ENDOSCOPY HISTORY: EGD: Per patient she had an EGD within the past few months during a [facility] admission, endoscopy reports not available at time of visit. Per patient EGD was normal. EGD: Over 5 years ago (Dr. Marks) Biopsy results: Not available COLONOSCOPY: Per patient she had a colonoscopy within the past few months during a [facility] admission, endoscopy reports not available at time of visit. Per patient colonoscopy was normal. COLONOSCOPY: 05/16/2023 (Dr. Marks) Normal 2 year repeat recommended Bx Results: Colon, right biopsy: Colonic mucosa with minimal reactive changes and lymphoid follicles Colon, left biopsy: Colonic mucosa with minimal reactive changes and lymphoid follicles COLONOSCOPY: 07/20/2021 Biopsies with low-grade dysplasia COLONOSCOPY: 10/15/2021 No low-grade dysplasia CAPSULE ENDOSCOPY: 10/30/2023 Small-bowel passage time: 3 hours 15 minutes Findings: Normal. No ulcerations, erosions, inflammation, AVM or cancer. No evidence of Crohn's disease. LABS AND STOOL STUDIES: Labs 03/10/2025: WBC 22, Hgb 13, Hct 40, MCV 76, platelets 445 Sodium 137, potassium 4.0, BUN 15, creatinine 0.96, GFR >60, calcium 10.1, magnesium 1.8, glucose 212 Total bilirubin 0.8, AST 25, ALT 16, Alkaline Phos 85, albumin 4.7, lipase 62 Fecal calprotectin 901 on 11/24/2023 IMAGING: CT abd/pelvis w/contrast 03/10/2025: IMPRESSION: 1. Extensive small bowel wall thickening extending from the mid jejunum to the mid ileum consistent with likely acute on chronic enteritis in this patient with reported known history of Crohn's disease. 2. Small amount of likely reactive free fluid in the deep pelvis. No abscess or free intraperitoneal gas. 3. Nonspecific nephrolithiasis in the left kidney. 4. Uterine fibroid. CT abd/pelvis w/contrast 12/02/2024: Diffuse small bowel wall thickening and moderate distention, concerning for active inflammation in this patient known Crohn's disease. Mesenteric edema and scattered area of interloop fluid also consistent with active inflammation. No free air or abscess Nonobstructing calculi left kidney Stable 1.5 cm left adrenal nodule, likely incidental. Unchanged compared to 2020 Stable borderline-enlarged bilateral inguinal lymph nodes Stable uterine fibroid Prior cholecystectomy CT abd/pelvis w/contrast 07/25/2024: IMPRESSION: 1. Wall thickening of some loops of ileum again seen with mild dilatation of proximal small bowel, consistent with chronic enteritis and adynamic ileus. Upper GI small bowel x-ray 11/22/2023: Few dilated small bowel loops with normal contrast progression, reaching nondilated ileal segment with fold thickening in right lower quadrant at 30 min. No further progression over 5.5 hrs, suggesting high-grade obstruction or combined obstruction/ileus. Review of Systems 2 Constitutional: Constitutional: Reports as per HPI ENT: Reports as per HPI Cardiovascular: Cardiovascular: Reports as per HPI, Denies chest pain and Denies dyspnea Respiratory: Respiratory: Denies cough and Denies dyspnea Gastrointestinal: Gastrointestinal: Reports as per HPI Musculoskeletal: Musculoskeletal: Reports as per HPI Integumentary/Breasts: Skin/Breast: Reports as per HPI Psychiatric: Psychiatric: Reports as per HPI Endocrine: Endocrine: Reports no additional endocrine complaints Hematologic/Lymphatic: Hematologic/Lymphatic: Reports no additional hematologic/lymphatic complaints [facility] Past Medical History Medical History Asthma Anxiety Port-A-Cath in place History of right sided Port-A-Cath with subsequent removal placed 2011 removed proximally 2017. Placed due to poor vascular access. Crohn's disease of small intestine with complication Hypertension History of small bowel obstruction Has been treated conservatively and also required surgical intervention x 2 with adhesiolysis. Tobacco abuse Menorrhagia Hepatic steatosis Nephrolithiasis Morbid obesity 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 GERD with esophagitis Anemia Abdominal wall cellulitis Surgical History Surgical History Status post laparoscopic hernia repair laparoscopic ventral hernia repair with mesh History of exploratory laparotomy Has had what sounds like an exploratory laparotomy with adhesiolysis x 2 in [facility]. History of tonsillectomy History of appendectomy Appendix removed during 2nd exploratory laparotomy. History of cholecystectomy Laparoscopic Family History Family History Father Diabetes mellitus Mother Hypertension Sibling No problems noted. Other Crohn's colitis Social History Social History Social History: Surrogate decision maker: Dorota Clayton () Code status: Full code. Smoking packs per day: 0.1 Smoking cigarettes per day: 2.0 Years smoked: 16 Smoking pack-years: 1.60 Smoking status: Current every day smoker Tobacco type: cigarettes Second hand tobacco smoke exposure: No Alcohol intake: current Drinks per week: 1 Alcohol use details: 1-2 alcoholic beverages every 1-2 months. Substance use: current Substance use type: marijuana Other substance usage details: smokes dianneuna every day Last use: 08/20/2022 Do You Feel Safe in your Home?: Yes Lack of Transportation: No Lack of Food: Never True Current Housing: I Have Housing Concerned About Future Housing: Decline to Answer Difficulty Paying Gas/Electric Bills: Decline to Answer Difficulty Paying for Meds: Decline to Answer Currently Unemployed: Decline to Answer Education: High School Diploma/GED Difficulty w/ Childcare or Family Care: No Living arrangements: with family Additional living arrangements comments: Lives in [place] with her fidarya. Recently moved to the area from [facility]. Occupation/Education: other Additional occupation/education comments: Unemployed. Spiritual care concerns: No Meds Home Medications and Allergies Home Medications ?Medication ?Instructions ?Recorded ?Confirmed ?Type amlodipine 10 mg tablet 10 mg PO DAILY 11/22/2302/15 History hydrochlorothiazide 25 mg tablet 25 mg PO DAILY 07/25/24 History dicyclomine 20 mg tablet 20 mg PO QID PRN abdominal 0 11/06/24 03/10/25 Rx discomfort #20 tabs ondansetron 4 mg disintegrating 4 mg PO Q8H PRN nausea and 11/06/24 03/10/25 Rx tablet vomiting #10 tabs Allergies Allergy/AdvReac Type Severity Reaction Status Date / Time Penicillins Allergy Unknown Rash Verified 03/10/25 04:30 morphine AdvReac Nausea and Verified 03/10/25 04:30 Vomiting Vital Signs Vital Signs - 24 hr 03/10/25 03:02 03/10/25 04:23 03/10/25 06:44 Temperature 97.7 F Pulse Rate 85 75 75 Respiratory Rate 22 H 22 H 20 Blood Pressure 164/87 H 166/102 H 151/83 H Pulse Oximetry 97 100 95 Oxygen Delivery Room Air 03/10/25 07:51 03/10/25 08:39 Temperature Pulse Rate 78 79 Respiratory Rate 20 20 Blood Pressure 147/74 H 151/73 H Pulse Oximetry 100 100 Oxygen Delivery Exam 2 Const: General: cooperative, healthy appearing, comfortable, no acute distress and well developed Orientation/consciousness: oriented to person, oriented to place, oriented to time and patient oriented x3 HENMT: Head: normal to inspection, normocephalic and atraumatic Mouth: Yes Normal oral and palatal mucosa present and Yes moist mucous membranes Eyes: General: appearance normal, both eyes and all related structures C onjunctivae: conjunctivae normal Sclera: sclerae normal Pupils: Equal, round and reactive pupils present Neck: Neck: normal visual inspection Chest: Chest palpation & inspection: normal inspection of the chest Resp: Effort & Inspection: normal respiratory effort and able to speak in complete sentences Auscultation: clear to auscultation bilaterally Cardio: Jugular venous distension: no JVD Rate: regular rate Rhythm: r egular rhythm Heart sounds: S1 normal heart sound present and S2 normal heart sound present GI: Inspection: normal to inspection GI Palp: Yes Soft to palpation and Yes No hepatosplenomegaly present Auscultation: normal bowel sounds Rectal Exam: deferred Skin: General skin exam: normal color and no rashes or lesions noted Neuro: General: oriented to person, oriented to place, oriented to time and patient oriented x3 Cranial nerves: Yes Equal, round and reactive pupils present Speech: normal speech Extrem: General: normal to inspection and no clubbing, cyanosis or edema Psych: Appearance: grossly normal and well kempt Other: tearful throughout visit Results Labs 03/10/25 03:48 03/10/25 03:48 Labs: Short CBC 03/10/25 Range/Units 03:48 WBC 22.4 H (4.5-10.0) K/mm3 Hgb 12.6 (12.0-15.0) g/dL Hct 40.1 (37.0-47.0) % Plt Count 445 H (150-375) k/mm3 BMP 03/10/25 03:48 Sodium 137 Potassium 4.0 Chloride 105 Carbon Dioxide 19 L BUN 15 Creatinine 0.96 Glucose 212 H Calcium 10.1 Liver Function 03/10/25 Range/Units 03:48 Total Bilirubin 0.8 (0.2-1.3) mg/dL AST 25 (14-36) U/L ALT 16 (6-35) U/L Alkaline Phosphatase 85 (38-126) U/L Albumin 4.7 (3.5-5.1) g/dL Urine 03/10/25 Range/Units 06:42 Urine Color Yellow (Yellow) Urine Appearance Clear (Clear) Urine pH 6.0 (5.0-9.0) Ur Specific [place] > 1.045 H (1.001-1.035) Urine Protein Negative (Negative) mg/dL Urine Glucose (UA) Negative (Negative) mg/dL
[2025-03-10] MEDS: HYDROmorphone HCL INJ (*CRX) 1 MG/ML SYR 0.5 MG IV PUSH ×3 (09:56→20:53)
[2025-03-10] MEDS: SODIUM CHLORIDE 0.9% IV 1,000 ML 100 ML IV CONT (09:57)
--- NOTE | 2025-03-10 10:11 | ADMGEN ---
This patient, Roma Clayton, was admitted to 2 Medical Room 259-01. Patient/family oriented to hospital policies and general routines including ID bracelet, bed and alarms, visiting hours, pain management, procedures, bathroom and other care routines, personal items, smoking policy, room service/diet, and visiting hours. Information on how to activate the Rapid Response Team has been discussed. Patient/Family are encouraged to report perceived risks to care and to ask questions if they do not understand what they are told or what they should do.
[2025-03-10] MEDS: PROCHLORPERAZINE EDISYLATE 10 MG/2 ML VIAL IV PUSH ×2 (10:43→16:15)
[2025-03-10] MEDS: metroNIDAZOLE 500 MG/ISO 100ML 500 MG/100 ML BAG 100 MG IVPB ×2 (10:43→17:27)
[2025-03-10 12:08] LABS: Hepatitis B Core IgM Result Negative (Negative)
[2025-03-10] MEDS: levoFLOXacin 750 MG/D5W 150 ML 750 MG/150 ML BAG 100 MG IVPB (12:59)
--- NOTE | 2025-03-10 17:04 | P.HP_ITS ---
H&P: HPI History of Present Illness Date/Time: 03/10/25 17:04 Chief Complaint: vomiting, diarrhea and abd pain Narrative: 45 yo female with PMH of Crohn's disease who presented to [facility] ER on account of abd pain and vomiting. Noted her symptoms started about 2 days it was attended with diarrhea. However she noted her diarrhea resolved yesterday. Since then she has been having incessant vomiting. Noted abd pain, diffuse and 8/10 in intensity. Denies any chest pain, SOB, blood in stool or fever. Noted her biologic was discontinued for inefficacy. ER eval notable for BP 164/87, NV 85, HR 22, Saturating 97% on room air Labs notable for WBC 22.4, CO2 19, BG 212, Mg 1.4. CT AP showed extensice small bowel wall thickening extensing from the mid hehynum to the mid ileum consistent with likely acute on chronic enteritis Review of Systems Review of Systems: All other systems were reviewed adn negative exept as noted in the HPI above [facility] Past Medical History Medical History Asthma Anxiety Port-A-Cath in place History of right sided Port-A-Cath with subsequent removal placed 2011 removed proximally 2016. Placed due to poor vascular access. Crohn's disease of small intestine with complication Hypertension History of small bowel obstruction Has been treated conservatively and also required surgical intervention x 2 with adhesiolysis. Tobacco abuse Menorrhagia Hepatic steatosis Nephrolithiasis Morbid obesity 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 GERD with esophagitis Anemia Abdominal wall cellulitis Surgical History Surgical History Status post laparoscopic hernia repair laparoscopic ventral hernia repair with mesh History of exploratory laparotomy Has had what sounds like an exploratory laparotomy with adhesiolysis x 2 in [facility]. History of tonsillectomy History of appendectomy Appendix removed during 2nd exploratory laparotomy. History of cholecystectomy Laparoscopic Family History Family History Father Diabetes mellitus Mother Hypertension Sibling No problems noted. Other Crohn's colitis Social History Social History Social History: Surrogate decision maker: Dorota Clayton () Code status: Full code. Smoking packs per day: 0.1 Smoking cigarettes per day: 2.0 Years smoked: 16 Smoking pack-years: 1.60 Smoking status: Current every day smoker Tobacco type: cigarettes Second hand tobacco smoke exposure: No Alcohol intake: current Drinks per week: 1 Alcohol use details: 1-2 alcoholic beverages every 1-2 months. Substance use: current Substance use type: marijuana Other substance usage details: smokes marijauna every day Do You Feel Safe in your Home?: Yes Lack of Transportation: No Lack of Food: Never True Current Housing: I Have Housing Concerned About Future Housing: Decline to Answer Difficulty Paying Gas/Electric Bills: Decline to Answer Difficulty Paying for Meds: Decline to Answer Currently Unemployed: Decline to Answer Education: High School Diploma/GED Difficulty w/ Childcare or Family Care: No Living arrangements: with family Additional living arrangements comments: Lives in [place] with her fiance. Recently moved to the area from [facility]. Occupation/Education: other Additional occupation/education comments: Unemployed. Spiritual care concerns: No Meds Home Medications and Allergies Home Medications ?Medication ?Instructions ?Recorded ?Confirmed ?Type amlodipine 10 mg tablet 10 mg PO DAILY 11/22/2302/15 History hydrochlorothiazide 25 mg tablet 25 mg PO DAILY 07/25/24 History dicyclomine 20 mg tablet 20 mg PO QID PRN abdominal 0 11/06/24 03/10/25 Rx discomfort #20 tabs ondansetron 4 mg disintegrating 4 mg PO Q8H PRN nausea and 11/06/24 03/10/25 Rx tablet vomiting #10 tabs Allergies Allergy/AdvReac Type Severity Reaction Status Date / Time Penicillins Allergy Unknown Rash Verified 03/10/25 04:30 morphine AdvReac Nausea and Verified 03/10/25 04:30 Vomiting Vital Signs Vital Signs - 24 hr 03/10/25 03:02 03/10/25 04:23 03/10/25 06:44 Temperature 97.7 F Pulse Rate 85 75 75 Respiratory Rate 22 H 22 H 20 Blood Pressure 164/87 H 166/102 H 151/83 H Pulse Oximetry 97 100 95 Oxygen Delivery Room Air 03/10/25 07:51 03/10/25 08:39 03/10/25 10:13 Temperature Pulse Rate 78 79 Respiratory Rate 20 20 Blood Pressure 147/74 H 151/73 H Pulse Oximetry 100 100 Oxygen Delivery Room Air 03/10/25 10:15 03/10/25 12:13 03/10/25 13:41 Temperature 97.9 F 96.5 F L Pulse Rate 81 72 Respiratory Rate 16 17 Blood Pressure 143/82 H 127/80 Pulse Oximetry 98 98 97 Oxygen Delivery Room Air Exam Narrative: General: alert and comfortable Eyes: EOMI, PERRLA ENNT External ears normal, Neck is supple, no masses, Respiratory systems: Clear to auscultation Cardiovascular S1, S2, normal rhythm, no murmur, rub, or gallop; no thrill or palpable murmurs on palpation. Gastrointestinal: soft, RLL, Suprapubic and LLQ tenderness, and non-distended abdomen with no masses; BS present Skin: no rash, lesions, ulcerations, subcutaneous nodules or induration Musculoskeletal: no abnormality and no tenderness, normal ROM Neurologic: Alert and oriented x3, non focal Mental Status Exam: normal affect H&P: Results Labs Labs: Short CBC 03/10/25 Range/Units 03:48 WBC 22.4 H (4.5-10.0) K/mm3 Hgb 12.6 (12.0-15.0) g/dL Hct 40.1 (37.0-47.0) % Plt Count 445 H (150-375) k/mm3 BMP 03/10/25 03:48 Sodium 137 Potassium 4.0 Chloride 105 Carbon Dioxide 19 L BUN 15 Creatinine 0.96 Glucose 212 H Calcium 10.1 Liver Function 03/10/25 Range/Units 03:48 Total Bilirubin 0.8 (0.2-1.3) mg/dL AST 25 (14-36) U/L ALT 16 (6-35) U/L Alkaline Phosphatase 85 (38-126) U/L Albumin 4.7 (3.5-5.1) g/dL Urine 03/10/25 Range/Units 06:42 Urine Color Yellow (Yellow) Urine Appearance Clear (Clear) Urine pH 6.0 (5.0-9.0) Ur Specific [place] > 1.045 H (1.001-1.035) Urine Protein Negative (Negative) mg/dL Urine Glucose (UA) Negative (Negative) mg/dL Assessment and Plan Assessment and plan (1) Enteritis: Code(s): K52.9 - Noninfective gastroenteritis and colitis, unspecified Status: Acute Plan Enteritis Hx of Vomiting, abd pain and diarrhea Crohn's disease flare, r/o infection Patient has been off her biologic for inefficacy Blood culture Continue IV steroid, Levaquin and Flagyl Continue IV ZOfran PRN and IVF, NPO monitor and adjust with clinical course GI consulted Hyperglycemia BG 212 A1c pending SSI with accucheks monitor Hx of Crohn's disease GI setting up outpatient follow up for resumption of biologics DVT prophylaxis on Sq Lovenox Full code Hospitalist [facility] Advance Care Plan I have confirmed that the patient's Advanced Care Plan is present, code status is documented, or surrogate decision maker is listed in patient medical record.: Yes Medication Reconciliation I have utilized all available resources to obtain, update and review the patients current medications (includes all prescriptions, OTC, herbals, cannabis, and nutritional supplements).: Yes
[2025-03-11] MEDS: metroNIDAZOLE 500 MG/ISO 100ML 500 MG/100 ML BAG 100 MG IVPB ×3 (01:42→17:17)
[2025-03-11] MEDS: HYDROmorphone HCL INJ (*CRX) 1 MG/ML SYR 0.5 MG IV PUSH ×8 (01:42→20:15)
[2025-03-11 04:45] VITALS: BP 124/61; PULSE 69; RESP 20; TEMP 36.5; O2SAT 100
[2025-03-11 04:54] LABS: Hematocrit 34.5 % (37.0-47.0); Hemoglobin 10.4 g/dL (12.0-15.0); Immature Granulocyte Percent A 0.4 % (0-0.5); Lymphocytes Absolute Auto 1.33 K/mm3 (0.9-3.2); Mean Corpuscular HGB Conc 30.1 g/dl (32-36); Mean Corpuscular Hemoglobin 23.8 pg (26-34); Mean Corpuscular Volume 78.9 fl (80-100); Nucleated Red Blood Cells Absolute Auto 0.000 K/mm3 (0.0-0.012); Nucleated Red Blood Cells Perc 0.0 % (0.0-0.2); Platelet Count Result 302 k/mm3 (150-375); Red Blood Count 4.37 M/mm3 (4.2-5.4); White Blood Count 11.2 K/mm3 (4.5-10.0)
[2025-03-11 05:26] LABS: Alanine Aminotransferase 13 U/L (6-35); Albumin Level 3.8 g/dL (3.5-5.1); Alkaline Phosphatase 62 U/L (38-126); Anion Gap 8 mmol/L (4-12); Aspartate Amino Transferase 21 U/L (14-36); Bilirubin,Total 0.6 mg/dL (0.2-1.3); Blood Urea Nitrogen 14 mg/dL (7-17); Calcium 9.0 mg/dL (8.4-10.2); Carbon Dioxide 23 mmol/L (22-30); Chloride 106 mmol/L (98-107); Estimated CRCL calculation 132 ml/min; Estimated Glomerular Filt Rate > 60; Glucose 113 mg/dL (65-110); Magnesium 2.2 mg/dL (1.6-2.3); Potassium 3.7 mmol/L (3.4-5.0); Sodium 137 mmol/L (137-145); Total Protein 7.1 g/dL (6.3-8.2)
[2025-03-11] MEDS: SODIUM CHLORIDE 0.9% IV 1,000 ML 100 ML IV CONT ×2 (07:32→07:34)
[2025-03-11 08:08] LABS: Hep B Core Ab, Total Negative (Negative)
[2025-03-11] MEDS: ENOXAPARIN 40 MG/0.4 ML SYRINGE SUB-Q (09:14)
[2025-03-11 09:26] VITALS: RESP 20; O2SAT 100
[2025-03-11] MEDS: levoFLOXacin 750 MG/D5W 150 ML 750 MG/150 ML BAG 100 MG IVPB (10:19)
--- NOTE | 2025-03-11 12:50 | P.PNIM_ITS ---
Progress Note: A&P Assessment and Plan (1) Enteritis: Code(s): K52.9 - Noninfective gastroenteritis and colitis, unspecified Status: Acute Plan Enteritis Hx of Vomiting, abd pain and diarrhea Crohn's disease flare, r/o infection Patient has been off her biologic for inefficacy Blood culture Continue IV steroid, Levaquin and Flagyl PRN Zofran, on clear liquid diet, advance per GI monitor and adjust with clinical course GI following Hyperglycemia BG 212 A1c pending SSI with accucheks monitor Anemia r/o Iron deficiency Hb 10.4 Iron panel ordered, will replace by IV deficient monitor H and H Hx of Crohn's disease GI setting up outpatient follow up for resumption of biologics DVT prophylaxis on Sq Lovenox Full code Subjective Date/time seen: 03/11/25 12:50 Interval history: Comfortable at bedside, still complained of abd pain. Noted vomiting and diarrhea has resolved Review of Systems Review of Systems: All other systems were reviewed adn negative exept as noted in the HPI above Exam Narrative: General: alert and comfortable Eyes: EOMI, PERRLA ENNT External ears normal, Neck is supple, no masses, Respiratory systems: Clear to auscultation Cardiovascular S1, S2, normal rhythm, no murmur, rub, or gallop; no thrill or palpable murmurs on palpation. Gastrointestinal: soft, RLL, Suprapubic and LLQ tenderness, and non-distended abdomen with no masses; BS present Skin: no rash, lesions, ulcerations, subcutaneous nodules or induration Musculoskeletal: no abnormality and no tenderness, normal ROM Neurologic: Alert and oriented x3, non focal Mental Status Exam: normal affect Objective Data Vital Signs Vital Signs: Vital Signs - 24 hr 03/10/25 13:41 03/10/25 20:00 03/10/25 20:46 Temperature 96.5 F L 97.6 F Pulse Rate 72 60 Respiratory Rate 17 20 Blood Pressure 127/80 142/63 H Pulse Oximetry 97 100 Oxygen Delivery Room Air 03/11/25 04:45 03/11/25 09:26 Temperature 97.7 F Pulse Rate 69 Respiratory Rate 20 20 Blood Pressure 124/61 Pulse Oximetry 100 100 Oxygen Delivery Room Air Intake/Output Intake/Output: Intake & Output 08/23/25 08/24/25 08/25/25 08/26/25 23:59 23:59 23:59 23:59 Intake Total 2400 371.6 Output Total 5 Balance 2395 371.6 Meds/Results Medications: Active Medications Generic Name Dose Route Start Last Admin Trade Name Freq PRN Reason Stop Dose Admin Dextrose 12.5 gm 03/10/25 17:13 Dextrose 50% 25 Gm/50 Ml Syringe IV PUSH PRN PRN Hypoglycemia Protocol Enoxaparin Sodium 40 mg 03/11/25 09:00 03/11/25 09:14 Enoxaparin 40 Mg/0.4 Ml Syringe SUB-Q 40 mg DAILY PAULA Administration Glucagon 1 mg 03/10/25 17:13 Glucagon For Inj 1 Mg Vial IM PRN PRN Hypoglycemia Protocol Glucose 15 gm 03/10/25 17:13 Glucose Oral Gel 15 Gm Of Glucse In 37.5 Gm Tube PO PRN PRN Hypoglycemia Protocol Hydromorphone HCl 0.5 mg 03/10/25 09:46 03/11/25 11:37 Hydromorphone Hcl Inj (*Crx) 1 Mg/Ml Syr IV PUSH 0.5 mg Q2H PRN Administration Pain Rated 7-10 Levofloxacin/Dextrose 750 mg in 150 mls @ 100 mls/hr 03/10/25 10:00 03/11/25 10:19 Levaquin 750 Mg/D5w 150 Ml IVPB 100 mls/hr Q24H PAULA Administration Metronidazole 500 mg in 100 mls @ 100 mls/hr 03/10/25 10:00 03/11/25 10:15 Flagyl 500 Mg/Iso Soln 100 Ml IVPB Infused Q8H PAULA Infusion Sodium Chloride 1,000 mls @ 75 mls/hr 03/10/25 09:10 03/11/25 09:15 Normal Saline Iv IV CONT 0 mls/hr .[id number] PAULA Infusion Dextrose 1,000 mls @ 100 mls/hr 03/10/25 17:13 Dextrose 5% 1,000 Ml IVPB PRN PRN Hypoglycemia Protocol Insulin Aspart 2 - 5 units 03/11/25 08:00 03/11/25 11:36 Insulin Aspart (*Bkc) 100 Units/Ml SUB-Q Not Given TIDWM PAULA Protocol Methylprednisolone Sodium Succinate 40 mg 03/11/25 09:00 03/11/25 09:15 Methylprednisolone Sod Succ 40 Mg Vial IV PUSH 40 mg DAILY PAULA Administration Prochlorperazine Edisylate 10 mg 03/10/25 10:37 03/10/25 16:15 Prochlorperazine Edisylate 10 Mg/2 Ml Vial IV PUSH 10 mg Q6H PRN Administration Nausea And Vomiting Radiology Results: ITS Impressions Abdomen/Pelvis CT 03/10/25 07:24 IMPRESSION: 1. Extensive small bowel wall thickening extending from the mid jejunum to the mid ileum consistent with likely acute on chronic enteritis in this patient with reported known history of Crohn's disease. 2. Small amount of likely reactive free fluid in the deep pelvis. No abscess or free intraperitoneal gas. 3. Nonspecific nephrolithiasis in the left kidney. 4. Uterine fibroid. Labs Labs: Laboratory Results - last 24 hr 03/10/25 03/11/25 03/11/25 10:59 04:47 09:10 WBC 11.2 H RBC 4.37 Hgb 10.4 L Hct 34.5 L MCV 78.9 L MCH 23.8 L MCHC 30.1 L RDW 18.7 H Plt Count 302 MPV 9.0 Immature Gran % (Auto) 0.4 Neut % (Auto) 84.0 H Lymph % (Auto) 11.9 L [place] % (Auto) 3.6 Eos % (Auto) 0.0 Baso % (Auto) 0.1 L Lymph # (Auto) 1.33 [place] # (Auto) 0.4 Eos # (Auto) 0.0 Baso # (Auto) 0.0 Abs Immat Gran (auto) 0.05 H Absolute Neuts (auto) 9.4 H Absolute Nucleated RBC 0.000 Nucleated RBC % 0.0 Sodium 137 Potassium 3.7 Chloride 106 Carbon Dioxide 23 Anion Gap 8 BUN 14 Creatinine 0.66 L Estim Creat Clear Calc 132 Estimated GFR > 60 Glucose 113 H POC Capillary Glucose 100 Lactic Acid 0.6 L Calcium 9.0 Magnesium 2.2 Total Bilirubin 0.6 AST 21 ALT 13 Alkaline Phosphatase 62 Total Protein 7.1 Albumin 3.8 Hep B Core Total Ab Negative 03/11/25 11:26 WBC RBC Hgb Hct MCV MCH MCHC RDW Plt Count MPV Immature Gran % (Auto) Neut % (Auto) Lymph % (Auto) [place] % (Auto) Eos % (Auto) Baso % (Auto) Lymph # (Auto) [place] # (Auto) Eos # (Auto) Baso # (Auto) Abs Immat Gran (auto) Absolute Neuts (auto) Absolute Nucleated RBC Nucleated RBC % Sodium Potassium Chloride Carbon Dioxide Anion Gap BUN Creatinine Estim Creat Clear Calc Estimated GFR Glucose POC Capillary Glucose 120 H Lactic Acid Calcium Magnesium Total Bilirubin AST ALT Alkaline Phosphatase Total Protein Albumin Hep B Core Total Ab
[2025-03-11 13:08] VITALS: BP 140/90
[2025-03-11 14:00] VITALS: BP 140/85; PULSE 68; RESP 16; TEMP 36.6; O2SAT 100
--- NOTE | 2025-03-11 15:18 | PC.NURSE ---
On 03/11/25, the student, [Reyes Guillermo], provided care and completed [facility] documentation on this patient. I have reviewed the student's documentation and agree with the findings.
--- NOTE | 2025-03-11 17:31 | WPDGIPROGNO ---
Progress Note: A&P Assessment and Plan (1) Crohn's disease: Qualifiers: Digestive disease complication type: with intestinal obstruction Gastrointestinal tract location: small intestine Qualified Code(s): K50.012 - Crohn's disease of small intestine with intestinal obstruction Code(s): K50.90 - Crohn's disease, unspecified, without complications Status: Acute Assessment and Plan: The patient was admitted due to a Crohn's disease exacerbation and possible bacterial gastroenteritis, presenting with abdominal pain and diarrhea without obstruction. She is being treated with intravenous Solu-Medrol, Metronidazole, and levofloxacin. She is showing improvement, but still has some abdominal pain and nausea. She has tolerated a liquid diet well. If her symptoms continue to improve, she will be transitioned to oral prednisone and oral antibiotics. For long-term management, a change in her biologic therapy is planned. She will switch from Stelara to Guselkumab, as the new medication can be prescribed locally, unlike her previous therapy which required delivery from [place] (2) Enteritis: Code(s): K52.9 - Noninfective gastroenteritis and colitis, unspecified Status: Acute Subjective Date/time seen: 03/11/25 17:31 Interval history: The patient states that her abdominal pain, although still present, is much less yesterday's, graded 4-5/10. Her WBC has decreased from 22.4 to 11.2 today. Objective Data Vital Signs Vital Signs: Vital Signs - 24 hr 03/10/25 20:00 03/10/25 20:46 03/11/25 04:45 Temperature 97.6 F 97.7 F Pulse Rate 60 69 Respiratory Rate 20 20 Blood Pressure 142/63 H 124/61 Pulse Oximetry 100 100 Oxygen Delivery Room Air 03/11/25 09:26 03/11/25 13:08 03/11/25 14:00 Temperature 97.9 F Pulse Rate 68 Respiratory Rate 20 16 Blood Pressure 140/90 140/85 Pulse Oximetry 100 100 Oxygen Delivery Room Air Intake/Output Intake/Output: Intake & Output 03/08/25 03/09/25 03/10/25 03/11/25 23:59 23:59 23:59 23:59 Intake Total 2400 1729.1 Output Total 5 Balance 2395 1729.1 Meds/Results Medications: Active Medications Generic Name Dose Route Start Last Admin Trade Name Freq PRN Reason Stop Dose Admin Dextrose 12.5 gm 03/10/25 17:13 Dextrose 50% 25 Gm/50 Ml Syringe IV PUSH PRN PRN Hypoglycemia Protocol Enoxaparin Sodium 40 mg 03/11/25 09:00 03/11/25 09:14 Enoxaparin 40 Mg/0.4 Ml Syringe SUB-Q 40 mg DAILY PAULA Administration Glucagon 1 mg 03/10/25 17:13 Glucagon For Inj 1 Mg Vial IM PRN PRN Hypoglycemia Protocol Glucose 15 gm 03/10/25 17:13 Glucose Oral Gel 15 Gm Of Glucse In 37.5 Gm Tube PO PRN PRN Hypoglycemia Protocol Hydromorphone HCl 0.5 mg 03/10/25 09:46 03/11/25 17:17 Hydromorphone Hcl Inj (*Crx) 1 Mg/Ml Syr IV PUSH 0.5 mg Q2H PRN Administration Pain Rated 7-10 Levofloxacin/Dextrose 750 mg in 150 mls @ 100 mls/hr 03/10/25 10:00 03/11/25 11:50 Levaquin 750 Mg/D5w 150 Ml IVPB Infused Q24H PAULA Infusion Metronidazole 500 mg in 100 mls @ 100 mls/hr 03/10/25 10:00 03/11/25 17:17 Flagyl 500 Mg/Iso Soln 100 Ml IVPB 100 mls/hr Q8H PAULA Administration Sodium Chloride 1,000 mls @ 75 mls/hr 03/10/25 09:10 03/11/25 17:18 Normal Saline Iv IV CONT 0 mls/hr .[id number] PAULA Infusion Dextrose 1,000 mls @ 100 mls/hr 03/10/25 17:13 Dextrose 5% 1,000 Ml IVPB PRN PRN Hypoglycemia Protocol Insulin Aspart 2 - 5 units 03/11/25 08:00 03/11/25 16:40 Insulin Aspart (*Bkc) 100 Units/Ml SUB-Q Not Given TIDWM PAULA Protocol Methylprednisolone Sodium Succinate 40 mg 03/11/25 09:00 03/11/25 09:15 Methylprednisolone Sod Succ 40 Mg Vial IV PUSH 40 mg DAILY PAULA Administration Prochlorperazine Edisylate 10 mg 03/10/25 10:37 03/10/25 16:15 Prochlorperazine Edisylate 10 Mg/2 Ml Vial IV PUSH 10 mg Q6H PRN Administration Nausea And Vomiting Radiology Results: ITS Impressions Abdomen/Pelvis CT 03/10/25 07:24 IMPRESSION: 1. Extensive small bowel wall thickening extending from the mid jejunum to the mid ileum consistent with likely acute on chronic enteritis in this patient with reported known history of Crohn's disease. 2. Small amount of likely reactive free fluid in the deep pelvis. No abscess or free intraperitoneal gas. 3. Nonspecific nephrolithiasis in the left kidney. 4. Uterine fibroid. Labs Labs: Laboratory Results - last 24 hr 03/10/25 03/11/25 03/11/25 10:59 04:47 09:10 WBC 11.2 H RBC 4.37 Hgb 10.4 L Hct 34.5 L MCV 78.9 L MCH 23.8 L MCHC 30.1 L RDW 18.7 H Plt Count 302 MPV 9.0 Immature Gran % (Auto) 0.4 Neut % (Auto) 84.0 H Lymph % (Auto) 11.9 L [place] % (Auto) 3.6 Eos % (Auto) 0.0 Baso % (Auto) 0.1 L Lymph # (Auto) 1.33 [place] # (Auto) 0.4 Eos # (Auto) 0.0 Baso # (Auto) 0.0 Abs Immat Gran (auto) 0.05 H Absolute Neuts (auto) 9.4 H Absolute Nucleated RBC 0.000 Nucleated RBC % 0.0 Sodium 137 Potassium 3.7 Chloride 106 Carbon Dioxide 23 Anion Gap 8 BUN 14 Creatinine 0.66 L Estim Creat Clear Calc 132 Estimated GFR > 60 Glucose 113 H POC Capillary Glucose 100 Lactic Acid 0.6 L Calcium 9.0 Magnesium 2.2 Total Bilirubin 0.6 AST 21 ALT 13 Alkaline Phosphatase 62 Total Protein 7.1 Albumin 3.8 Hep B Core Total Ab Negative 03/11/25 03/11/25 11:26 16:35 WBC RBC Hgb Hct MCV MCH MCHC RDW Plt Count MPV Immature Gran % (Auto) Neut % (Auto) Lymph % (Auto) [place] % (Auto) Eos % (Auto) Baso % (Auto) Lymph # (Auto) [place] # (Auto) Eos # (Auto) Baso # (Auto) Abs Immat Gran (auto) Absolute Neuts (auto) Absolute Nucleated RBC Nucleated RBC % Sodium Potassium Chloride Carbon Dioxide Anion Gap BUN Creatinine Estim Creat Clear Calc Estimated GFR Glucose POC Capillary Glucose 120 H 119 H Lactic Acid Calcium Magnesium Total Bilirubin AST ALT Alkaline Phosphatase Total Protein Albumin Hep B Core Total Ab
[2025-03-11 20:06] VITALS: BP 152/65; PULSE 60; RESP 20; TEMP 36.5; O2SAT 100
[2025-03-11] MEDS: PROCHLORPERAZINE EDISYLATE 10 MG/2 ML VIAL IV PUSH (20:15)
[2025-03-12] MEDS: HYDROmorphone HCL INJ (*CRX) 1 MG/ML SYR 0.5 MG IV PUSH (00:03)
[2025-03-12] MEDS: SODIUM CHLORIDE 0.9% IV 1,000 ML 75 ML IV CONT (00:06)
[2025-03-12] MEDS: metroNIDAZOLE 500 MG/ISO 100ML 500 MG/100 ML BAG 100 MG IVPB ×2 (01:48→11:06)
[2025-03-12 04:05] VITALS: BP 168/77; PULSE 66; RESP 20; TEMP 36.4; O2SAT 98
[2025-03-12 05:23] LABS: Hematocrit 34.0 % (37.0-47.0); Hemoglobin 10.4 g/dL (12.0-15.0); Immature Granulocyte Percent A 0.5 % (0-0.5); Lymphocytes Absolute Auto 1.78 K/mm3 (0.9-3.2); Mean Corpuscular HGB Conc 30.6 g/dl (32-36); Mean Corpuscular Hemoglobin 24.0 pg (26-34); Mean Corpuscular Volume 78.3 fl (80-100); Nucleated Red Blood Cells Absolute Auto 0.000 K/mm3 (0.0-0.012); Nucleated Red Blood Cells Perc 0.0 % (0.0-0.2); Platelet Count Result 303 k/mm3 (150-375); Red Blood Count 4.34 M/mm3 (4.2-5.4); White Blood Count 10.1 K/mm3 (4.5-10.0)
[2025-03-12 05:46] LABS: Iron 36 ug/dL (37-170)
[2025-03-12 05:54] LABS: Alanine Aminotransferase 15 U/L (6-35); Albumin Level 3.8 g/dL (3.5-5.1); Alkaline Phosphatase 56 U/L (38-126); Anion Gap 7 mmol/L (4-12); Aspartate Amino Transferase 27 U/L (14-36); Bilirubin,Total 0.3 mg/dL (0.2-1.3); Blood Urea Nitrogen 19 mg/dL (7-17); Calcium 9.1 mg/dL (8.4-10.2); Carbon Dioxide 24 mmol/L (22-30); Chloride 106 mmol/L (98-107); Estimated CRCL calculation 122 ml/min; Estimated Glomerular Filt Rate > 60; Glucose 108 mg/dL (65-110); Magnesium 1.8 mg/dL (1.6-2.3); Potassium 3.8 mmol/L (3.4-5.0); Sodium 137 mmol/L (137-145); Total Protein 7.0 g/dL (6.3-8.2)
[2025-03-12 05:56] LABS: Percent Iron Saturation 9 % (20-50)
[2025-03-12 06:28] LABS: Ferritin 16.30 ng/mL (6.24-137)
[2025-03-12] MEDS: levoFLOXacin 750 MG/D5W 150 ML 750 MG/150 ML BAG 100 MG IVPB (09:21)
[2025-03-12] MEDS: ENOXAPARIN 40 MG/0.4 ML SYRINGE SUB-Q (09:21)
--- NOTE | 2025-03-12 09:48 | PC.NURSE ---
RN called MD Doll about patient's status and the want to go home. MD Doll said to switch medication to oral and good to D/C.
--- NOTE | 2025-03-12 09:58 | WPDGIPROGNO ---
Progress Note: A&P Assessment and Plan (1) Crohn's disease: Qualifiers: Digestive disease complication type: with intestinal obstruction Gastrointestinal tract location: small intestine Qualified Code(s): K50.012 - Crohn's disease of small intestine with intestinal obstruction Code(s): K50.90 - Crohn's disease, unspecified, without complications Status: Acute Assessment and Plan: Patient tolerated food well, afebrile, white count improving. Patient will be discharged today on levofloxacin 750 mg q.d. for 5 more days and prednisone 40 mg q.d.. She will get appointment in our clinic shortly, and steroid taper will start then. A new biologic agent will be pursued in replacement of Stelara. Subjective Date/time seen: 03/12/25 09:58 Objective Data Vital Signs Vital Signs: Vital Signs - 24 hr 03/11/25 13:08 03/11/25 14:00 03/11/25 20:06 Temperature 97.9 F 97.7 F Pulse Rate 68 60 Respiratory Rate 16 20 Blood Pressure 140/90 140/85 152/65 H Pulse Oximetry 100 100 Oxygen Delivery 03/12/25 04:05 03/12/25 09:35 Temperature 97.6 F Pulse Rate 66 Respiratory Rate 20 Blood Pressure 168/77 H Pulse Oximetry 98 Oxygen Delivery Room Air Intake/Output Intake/Output: Intake & Output 03/09/25 03/10/25 03/11/25 03/12/25 23:59 23:59 23:59 23:59 Intake Total 2400 2110.4 826.3 Output Total 5 Balance 2395 2110.4 826.3 Meds/Results Medications: Active Medications Generic Name Dose Route Start Last Admin Trade Name Freq PRN Reason Stop Dose Admin Dextrose 12.5 gm 03/10/25 17:13 Dextrose 50% 25 Gm/50 Ml Syringe IV PUSH PRN PRN Hypoglycemia Protocol Enoxaparin Sodium 40 mg 03/11/25 09:00 03/12/25 09:21 Enoxaparin 40 Mg/0.4 Ml Syringe SUB-Q 40 mg DAILY PAULA Administration Glucagon 1 mg 03/10/25 17:13 Glucagon For Inj 1 Mg Vial IM PRN PRN Hypoglycemia Protocol Glucose 15 gm 03/10/25 17:13 Glucose Oral Gel 15 Gm Of Glucse In 37.5 Gm Tube PO PRN PRN Hypoglycemia Protocol Hydromorphone HCl 0.5 mg 03/10/25 09:46 03/12/25 00:03 Hydromorphone Hcl Inj (*Crx) 1 Mg/Ml Syr IV PUSH 0.5 mg Q2H PRN Administration Pain Rated 7-10 Levofloxacin/Dextrose 750 mg in 150 mls @ 100 mls/hr 03/10/25 10:00 03/12/25 09:21 Levaquin 750 Mg/D5w 150 Ml IVPB 100 mls/hr Q24H PAULA Administration Metronidazole 500 mg in 100 mls @ 100 mls/hr 03/10/25 10:00 03/12/25 02:48 Flagyl 500 Mg/Iso Soln 100 Ml IVPB Infused Q8H PAULA Infusion Sodium Chloride 1,000 mls @ 75 mls/hr 03/10/25 09:10 03/12/25 00:06 Normal Saline Iv IV CONT 75 mls/hr .[id number] PAULA Administration Dextrose 1,000 mls @ 100 mls/hr 03/10/25 17:13 Dextrose 5% 1,000 Ml IVPB PRN PRN Hypoglycemia Protocol Insulin Aspart 2 - 5 units 03/11/25 08:00 03/12/25 09:19 Insulin Aspart (*Bkc) 100 Units/Ml SUB-Q Not Given TIDWM PAULA Protocol Methylprednisolone Sodium Succinate 40 mg 03/11/25 09:00 03/12/25 09:20 Methylprednisolone Sod Succ 40 Mg Vial IV PUSH 40 mg DAILY PAULA Administration Prochlorperazine Edisylate 10 mg 03/10/25 10:37 03/11/25 20:15 Prochlorperazine Edisylate 10 Mg/2 Ml Vial IV PUSH 10 mg Q6H PRN Administration Nausea And Vomiting Radiology Results: ITS Impressions Abdomen/Pelvis CT 03/10/25 07:24 IMPRESSION: 1. Extensive small bowel wall thickening extending from the mid jejunum to the mid ileum consistent with likely acute on chronic enteritis in this patient with reported known history of Crohn's disease. 2. Small amount of likely reactive free fluid in the deep pelvis. No abscess or free intraperitoneal gas. 3. Nonspecific nephrolithiasis in the left kidney. 4. Uterine fibroid. Labs Labs: Laboratory Results - last 24 hr 03/10/25 03/11/25 03/11/25 11:00 11:26 16:35 WBC RBC Hgb Hct MCV MCH MCHC RDW Plt Count MPV Immature Gran % (Auto) Neut % (Auto) Lymph % (Auto) [place] % (Auto) Eos % (Auto) Baso % (Auto) Lymph # (Auto) [place] # (Auto) Eos # (Auto) Baso # (Auto) Abs Immat Gran (auto) Absolute Neuts (auto) Absolute Nucleated RBC Nucleated RBC % Sodium Potassium Chloride Carbon Dioxide Anion Gap BUN Creatinine Estim Creat Clear Calc Estimated GFR Glucose POC Capillary Glucose 120 H 119 H Calcium Magnesium Iron TIBC % Saturation Ferritin Total Bilirubin AST ALT Alkaline Phosphatase Total Protein Albumin TB Test (QFT) Gold Plus Negative TB (QFT) Incubation TB Test (QFT) Nil 0.04 TB Test (QFT) Mitogen 7.82 TB Test (QFT) +TB1 -NIL 0.04 TB Test (QFT) +TB2 -NIL 0.03 TB Test (QFT) Criteria Comment 03/12/25 03/12/25 05:09 08:04 WBC 10.1 H RBC 4.34 Hgb 10.4 L Hct 34.0 L MCV 78.3 L MCH 24.0 L MCHC 30.6 L RDW 18.5 H Plt Count 303 MPV 9.2 Immature Gran % (Auto) 0.5 Neut % (Auto) 77.3 H Lymph % (Auto) 17.7 L [place] % (Auto) 4.4 Eos % (Auto) 0.0 Baso % (Auto) 0.1 L Lymph # (Auto) 1.78 [place] # (Auto) 0.4 Eos # (Auto) 0.0 Baso # (Auto) 0.0 Abs Immat Gran (auto) 0.05 H Absolute Neuts (auto) 7.8 H Absolute Nucleated RBC 0.000 Nucleated RBC % 0.0 Sodium 137 Potassium 3.8 Chloride 106 Carbon Dioxide 24 Anion Gap 7 BUN 19 H Creatinine 0.72 Estim Creat Clear Calc 122 Estimated GFR > 60 Glucose 108 POC Capillary Glucose 95 Calcium 9.1 Magnesium 1.8 Iron 36 L TIBC 397 % Saturation 9 L Ferritin 16.30 Total Bilirubin 0.3 AST 27 ALT 15 Alkaline Phosphatase 56 Total Protein 7.0 Albumin 3.8 TB Test (QFT) Gold Plus TB (QFT) Incubation TB Test (QFT) Nil TB Test (QFT) Mitogen TB Test (QFT) +TB1 -NIL TB Test (QFT) +TB2 -NIL TB Test (QFT) Criteria
[2025-03-12 10:14] LABS: Hemoglobin A1C 5.2 % (<5.7)
--- NOTE | 2025-03-12 11:52 | P.DS_ITS ---
DS: Admitting Diagnosis Discharge Date 03/12/25 Admitting Diagnosis Enteritis with Hx of Crohn's, Hyperglcemia DS: Discharge Diagnosis Discharge Diagnosis (1) Enteritis: Code(s): K52.9 - Noninfective gastroenteritis and colitis, unspecified Status: Acute Assessment and Plan: 03/12/25: * In setting of hx of Crohn's disease. * Pt has been evaluated by GI and she has overall improved. * She is stable for discharge today according to GI and medicine on oral prednisone, Levaquin and will follow up with GI in one month at which point they will change the biologic med and also begin a steroid taper. * Pts pain has drastically improved and she wants to go home. * Preliminary BC with NGTD. (2) Hyperglycemia: Code(s): R73.9 - Hyperglycemia, unspecified Status: Acute Assessment and Plan: 03/12/25: * Glucose checks discontinued. * Suspect elevation initially was due to inflammation. * A1C is checked to be 5.2. * Despite receiving IV steroids, the pt has had normal fasting glucose levels and has not required SSI. (3) Anemia of chronic disease: Code(s): D63.8 - Anemia in other chronic diseases classified elsewhere Status: Acute Assessment and Plan: 03/12/25: * Iron Deficiency * Stable H&H at 10.4/34.0. * No melena or hematochezia. * Pt's iron panel shows low Iron and % Saturation levels. * Will order supplemental Iron for home. DS: Summary Hospital Course Reason for hospitalization: Treatment of Enteritis in the setting of Hx of Crohn's and GI consult. Hospital Course: This 45 year old female pt presented to the ER on 03/10/25 and was subsequently admitted for N/V/D and CT evidence of Enteritis. She has PMH of Crohn's disease on Stelara, asthma, anxiety, HTN, Obesity, GERD, adrenal nodule that has been stable and HERNANDEZ. At time of admission pt had a WBC of 22.4 with left shift and CT evidence aforementioned. She was started on Flagyl, Levaquin and IV Solumedrol and admitted to the hospital for GI consult. After discussion with GI, it was determined that her Stelara is no longer adequate for her symptoms and at time of follow up she will be switched to [facility]. Her diet was advanced gradually and the pt tolerated solid food without increase in pain, or any N/V/D. Dr. Doll is comfortable with discharge today and pt will be discharged home with prescriptions for Levaquin for 5 additional days and Prednisone 40 mg daily for one month until following up with Dr. Doll. At that time he will begin the steroid taper and switch the biologic. Pt's labs have been stable without drop in Hgb and her Iron studies show that she is Iron deficient so will be started on supplemental Iron today at discharge. Her WBC's have returned to normal at 10.1. She is discharged at this time to home in an overall stable and improved condition. Status at Discharge Cognitive/behavioral status at discharge: At baseline Functional status at discharge: independent ambulation Overall status at discharge: patient is back to baseline Time Spent with Patient Time attestation: Total time spent providing and/or coordinating discharge services: Time spent: Greater than 30 minutes Specific discharge activities: Medications, follow up, Return to ER precautions. Exam Narrative: General: alert and comfortable Eyes: EOMI, PERRLA EENT:External ears normal, Neck is supple, no masses, Respiratory systems: Clear to auscultation Cardiovascular: S1, S2, normal rhythm, no murmur, rub, or gallop; no thrill or palpable murmurs on palpation. Gastrointestinal: soft, TTP with deep palpation generalized lower quadrants., and non-distended abdomen with no masses; BS present Skin: no rash, lesions, ulcerations, subcutaneous nodules or induration Musculoskeletal: no abnormality and no tenderness, normal ROM Neurologic: Alert and oriented x3, non focal Mental Status Exam: normal affect DS: Data Data Completed and Pending Completed studies during hospitalization: ITS Impressions Abdomen/Pelvis CT 03/10/25 07:24 IMPRESSION: 1. Extensive small bowel wall thickening extending from the mid jejunum to the mid ileum consistent with likely acute on chronic enteritis in this patient with reported known history of Crohn's disease. 2. Small amount of likely reactive free fluid in the deep pelvis. No abscess or free intraperitoneal gas. 3. Nonspecific nephrolithiasis in the left kidney. 4. Uterine fibroid. Labs on day of discharge: Labs from last 24 hours 03/12/25 03/12/25 03/11/25 08:04 05:09 16:35 WBC 10.1 H RBC 4.34 Hgb 10.4 L Hct 34.0 L MCV 78.3 L MCH 24.0 L MCHC 30.6 L RDW 18.5 H Plt Count 303 MPV 9.2 Immature Gran % (Auto) 0.5 Neut % (Auto) 77.3 H Lymph % (Auto) 17.7 L [place] % (Auto) 4.4 Eos % (Auto) 0.0 Baso % (Auto) 0.1 L Lymph # (Auto) 1.78 [place] # (Auto) 0.4 Eos # (Auto) 0.0 Baso # (Auto) 0.0 Abs Immat Gran (auto) 0.05 H Absolute Neuts (auto) 7.8 H Absolute Nucleated RBC 0.000 Nucleated RBC % 0.0 Sodium 137 Potassium 3.8 Chloride 106 Carbon Dioxide 24 Anion Gap 7 BUN 19 H Creatinine 0.72 Estim Creat Clear Calc 122 Estimated GFR > 60 Glucose 108 POC Capillary Glucose 95 119 H Hemoglobin A1c 5.2 Calcium 9.1 Magnesium 1.8 Iron 36 L TIBC 397 % Saturation 9 L Ferritin 16.30 Total Bilirubin 0.3 AST 27 ALT 15 Alkaline Phosphatase 56 Total Protein 7.0 Albumin 3.8 TB Test (QFT) Gold Plus TB (QFT) Incubation TB Test (QFT) Nil TB Test (QFT) Mitogen TB Test (QFT) +TB1 -NIL TB Test (QFT) +TB2 -NIL TB Test (QFT) Criteria 03/10/25 11:00 WBC RBC Hgb Hct MCV MCH MCHC RDW Plt Count MPV Immature Gran % (Auto) Neut % (Auto) Lymph % (Auto) [place] % (Auto) Eos % (Auto) Baso % (Auto) Lymph # (Auto) [place] # (Auto) Eos # (Auto) Baso # (Auto) Abs Immat Gran (auto) Absolute Neuts (auto) Absolute Nucleated RBC Nucleated RBC % Sodium Potassium Chloride Carbon Dioxide Anion Gap BUN Creatinine Estim Creat Clear Calc Estimated GFR Glucose POC Capillary Glucose Hemoglobin A1c Calcium Magnesium Iron TIBC % Saturation Ferritin Total Bilirubin AST ALT Alkaline Phosphatase Total Protein Albumin TB Test (QFT) Gold Plus Negative TB (QFT) Incubation TB Test (QFT) Nil 0.04 TB Test (QFT) Mitogen 7.82 TB Test (QFT) +TB1 -NIL 0.04 TB Test (QFT) +TB2 -NIL 0.03 TB Test (QFT) Criteria Comment Preliminary micro results at discharge 03/10/25 11:00 Blood Culture - Preliminary Blood 03/10/25 10:57 Blood Culture - Preliminary Blood Discharge Plan Discharge Attending physician on discharge: Sherwin Frazier Consulting providers: Tracey Macdonald Discharging Clinician: Tracey Macdonald Anticipated Discharge Date/Time: 03/12/25 12:11 Patient Disposition: Home Activity: as tolerated Diet: regular Discharge Instructions: Thank you for allowing us to care for you. Please note that your medications have changed. You will be taking 5 days of an antibiotic and Prednisone 40 mg daily until you follow up with Dr. Doll as outpatient. You are being given enough to last 45 days, but he wants to see you in 30 days. At that time he will begin the taper of your steroids and change your Stelara to another medication. Your Iron was also low here in the hospital so we are starting you on oral iron supplementation. Be aware it can constipate you so please take a daily colace stool softener with it. This is also being prescribed for you. If at any point you have worsening of your symptoms, return to the ER. Patient Instructions: Antibiotic Form Patient Language: Slovenian Stand Alone Forms: General Discharge Information Follow-up/Referrals: Keith Silva MD [Primary Care Provider, Family Practice] Adrian Doll MD [Physician, Gastroenterology] - Call for Appointment Referral Note: 1 month follow up requested by Dr. oDll Discharge Medications: New levofloxacin 750 mg tablet 750 mg PO DAILY Qty: 5 0RF prednisone 20 mg tablet 40 mg PO DAILY Qty: 90 0RF ferrous sulfate [Feosol] 325 mg (65 mg iron) tablet 325 mg PO DAILY Qty: 30 0RF docusate sodium [Colace] 100 mg capsule 100 mg PO DAILY Qty: 30 0RF Continued amlodipine 10 mg tablet 10 mg PO DAILY dicyclomine 20 mg tablet 20 mg PO QID PRN (Reason: abdominal discomfort) Qty: 20 0RF ondansetron 4 mg tablet,disintegrating 4 mg PO Q8H PRN (Reason: nausea and vomiting) Qty: 10 0RF Date of admission: 03/11/25 09:37 Primary Care Provider: Keith Silva Admitting Provider: Manoj Bloom Attending physician on admission: Manoj Bloom Condition: Improved Quality VTE Prophylaxis VTE prophylaxis: pharmacologic ordered Hospitalist MIPS Heart Failure (Exclusion) Patient has history of Heart Transplant or Left Ventricular Assistive Device?: No IF YES, STOP HERE Heart Failure (Qualifier) Patient has current or prior documentation of LVEF less than or equal to 40%, or mod/servere depressed LVSF?: No IF NO, STOP HERE
== END 2025-03-12 12:47 | disposition home or self-care (01) | DRG 386 ==
LOC: ANHED 07:21 → ANH2MED 08:39
PROVIDERS: Emergency Medicine; Nurse Practitioner Family; Admitting Provider Internal Medicine; Emergency Provider Emergency Medicine; PCP Family Medicine; Visit Provider Nurse Practitioner Adult Health
DX: K50.00 Crohn's disease of small intestine without complications (principal); Z68.43 Body mass index [BMI] 50.0-59.9, adult; R73.9 Hyperglycemia, unspecified; D63.8 Anemia in other chronic diseases classified elsewhere; D50.9 Iron deficiency anemia, unspecified; K21.9 Gastro-esophageal reflux disease without esophagitis; I10 Essential (primary) hypertension; J45.909 Unspecified asthma, uncomplicated; F41.9 Anxiety disorder, unspecified; F12.90 Cannabis use, unspecified, uncomplicated; K76.0 Fatty (change of) liver, not elsewhere classified; E66.01 Morbid (severe) obesity due to excess calories; D35.02 Benign neoplasm of left adrenal gland; Z90.49 Acquired absence of other specified parts of digestive tract
CPT/HCPCS: 36415; 74177; 80053; 81001; 82728; 82948; 83036; 83540; 83550; 83605; 83690; 83735; 84703; 85025; 86480; 86704; 86705; 87040; 96365; 96366; 96372; 96375; 96376; 99285; G0378; J0780; J1171; J1200; J1650; J1790; J1836; J1956; J2270; J2405; J2765; J2919; J3475; J7030; Q9967

== ENCOUNTER 2025-04-04 13:50 | Inpatient (IN) | payer OTHER, SELFPAY ==
--- OUTSIDE RECORDS SUMMARY | 2013-05-02 05:00 | XMS_ITS | Continuity of Care Document ---
Author Organization [facility] [employer] Address [address] [place] [address] Phone Care Team Providers Care Production Line Name Role Phone Unavailable Unavailable Unavailable Procedures Procedure Date Non-Billable Services Non-Billable Services Extraction, Erupted Tooth Or Exposed Denise t (Elevati Intraoral Periapical First Jackson 13 Comprehensive Oral Evaluation 3 Bitewings Two Films Intraor Periapical Ea Add Film 13 Intraor Periapical Ea Add Film 13 Advance Directives Directive Yes / No Effective Date File Name No Information Encounters Encounter Description Practice Location Reason(s) For Visit Diagnoses Date Provider Providers Copied on Encounter [employer], [address], [place], [place], [id number], tel:[phone] [facility] Dental examination 3 No Information [facility] [employer], [address], [place], [place], [id number], tel:[phone] [facility] Dental examination 3 Nadira Cruz. [address], [place], [place], [address], [place]. tel:[phone] Referring Provider: Nancy Hicks, [address], [place], [address] . tel:[phone] [facility] [employer], [address], [place], [place], [id number], tel:[phone] [facility] Dental examination 3 Nadira Cruz. [address], [place], [place], [id number], [place]. tel:[phone] Referring Provider: Nancy Hicks, [address], [place], [address] . tel:[phone] Family History Family Member Type Diagnosis Age At Onset No Information Payers Payer name Insurance type Covered republican ID Authoriza tion(s) No Information Social History Type Description Quantity Date Captured Comments Sex Female Smoking Status No Information Chief Complaint And Reason For Visit No Information Reason For Referral Reason For Referral No Information History Of Present Illness Encounter Date Complaint History Of Prese nt Illness No Information Functional Status Date Functional Assessmen t No Information Instructions Date Instruction Additional Infor mation No Information Assessments Type Assessment Date No Information Patient Care Teams Name Effective Dates (start - stop) Status Members No Information
--- NOTE | ~2025-04-04 | CT_ITS ---
CT abdomen pelvis w con Clinical History: Abdominal pain . Comparison: 03/10/2025 Technique: Axial images lung bases to symphysis pubis IV contrast information not listed in PACS Coronal, sagittal reformats CT images acquired with automatic exposure control for dose reduction DLP: 1480 mGy-cm Findings: Lung bases: Clear. Visualized heart and pericardium: Unremarkable. Liver: Enlarged. Gallbladder: Removed. Spleen: Unremarkable. Pancreas: Unremarkable. Adrenal glands: Unremarkable. Kidneys: Right kidney- No hydronephrosis. No renal stones. Left kidney- No hydronephrosis. Several stones, largest 8 mm. Distal esophagus/stomach: Unremarkable. Small bowel loops: Mildly dilated loops, distal wall thickening. No pneumatosis. Colon: Mild scattered wall thickening. Normal RLQ appendix. Nodes: No enlarged nodes. Peritoneum: No ascites. No free air. Urinary bladder: Unremarkable. Uterus: Fibroid. Adnexa: No masses. Bones: No acute bony abnormality. Soft tissues: Unremarkable. Aorta: No aneurysm or dissection. IVC: Unremarkable. Main portal vein/SMV/splenic vein: Patent. IMPRESSION: 1. Enterocolitis persists, not significantly changed from 1 month prior. 2. No complicating features. Reviewed, dictated and finalized at location R.
[2025-04-04 13:51] VITALS: BP 140/108; PULSE 73; RESP 20; TEMP 36.6; O2SAT 97
--- OUTSIDE RECORDS SUMMARY | 2025-04-04 13:52 | XMS_ITS | Clinical Summary ---
Author Organization [facility] al Address [address] [place] [address] Care Team Providers Care Vacuum Drier Operator Name Role Phone Keith Silva MD Primary Care Provider Allergies Active Allergy Reactions Criticality Noted Date Comments Morphine Vomiting Low 11/12/2024 Penicillins Hives,Shortness of breath,Swelling High 11/12/2024 Patient reports history of hives and difficulty breathing with penicillins as a child. Tolerated cefepime October 2024 Medications amLODIPine (NORVASC) 10 mg tablet Take 1 tablet (10 mg total) by mouth daily 5 Active hydroCHLOROthiazide (HYDRODIURIL) 25 mg tablet Take 1 tablet (25 mg total) by mouth daily 5 Active ondansetron ODT (ZOFRAN-ODT) 4 mg disintegrating tablet Take 1 tablet (4 mg total) by mouth every 8 (eight) hours as needed for nausea or vomiting 5 Active Stelara injection Inject 1 mL (90 mg total) under the skin every 28 (twenty-eigh t) days 5 Active dicyclomine (BENTYL) 20 mg tablet Take 1 tablet (20 mg total) by mouth every 6 (six) hours 5 Active prochlorperazine (COMPAZINE) 10 mg tablet Take 1 tablet (10 mg total) by mouth every 6 (six) hours as needed for nausea or vomiting Active sucralfate (CARAFATE) suspension 1 gram/10 mL Take 10 mL (1 g total) by mouth 4 (four) times a day (with meals and nightly) 1200 mL [address] (PROTONIX) 40 mg EC tablet Take 1 tablet (40 mg total) by mouth 2 (two) times a day 60 tablet 1 Active Active Problems Problem Noted Date Diagnosed Date Melena 11/11/2024 Crohn's disease with complication 11/11/2024 Intractable epigastric abdominal pain 11/10/2024 Hx SBO 11/10/2024 Pain of upper abdomen 11/10/2024 Surgical History Surgery Date Site/Laterality Comments HERNIA REPAIR APPENDECTOMY CHOLECYSTECTOMY EXPLORATORY LAPAROTOMY COLONOSCOPY UPPER GASTROINTESTINAL ENDOSCOPY Medical History Medical History Date Comments Sleep apnea GERD (gastroesophageal reflux disease) Chronic diarrhea Chronic constipation Crohn's disease (HCC) Small bowel obstruction (HCC) Hypertension Asthma Anxiety Social History Tobacco Use Types Packs/Day Years Used Date Smoking Tobacco: Every Day Cigarettes Smokeless Tobacco: Never Tobacco Cessation:Ready to Q uit: Not Asked; Counseling Given: No [facility] Utilities Answer Date Recorded In the past 12 months has [facility], oil, or water [facility] threatened to shut off services in your home? No 11/11/2024 Social Connection and Isolation Panel Answer Date Recorded In a typical week, how many times do you talk on the phone with family, friends, or neighbors? Three times a week 11/11/2024 How often do you get togethe r with friends or relatives? Three times a week 11/11/2024 How often do you attend [facility] or congregation services? Never 11/11/2024 Do you belong to any clubs o r organizations such as sikhism groups, unions, fraternal or athletic groups, or school groups? No 11/11/2024 How often do you attend meet ings of the clubs or organizations you belong to? Never 11/11/2024 Are you , , di vorced, , never , or living with a partner? 11/11/2024 AUDIT-C Answer Date Recorded Q1: How often do you have a drink containing alc ohol? Monthly or less 11/12/2024 Q2: How many drinks containi ng alcohol do you have on a typical day when you are drinking? 1 or 2 11/12/2024 Q3: How often do you have si x or more drinks on one occasion? Never 11/12/2024 Overall Financial Resource Strain (CARDIA) Answe r Date Recorded How hard is it for you to pa y for the very basics like food, housing, medical care, and heating? Not hard at all 11/11/2024 Hunger Vital Sign Answer Date Recorded Within the past 12 months, y ou worried that your food would run out before you got the money to buy more. Never true 11/12/19 25 Within the past 12 months, t he food you bought just didn't last and you didn't have money to get more. Never true 11/11/2024 PRAPARE - Transportation Answer Date Re corded In the past 12 months, has l ack of transportation kept you from medical appointments or from getting medications? No 10/16 In the past 12 months, has l ack of transportation kept you from meetings, work, or from getting things needed for daily living? No 11/11/2024 Housing Stability Vital Sign Answer Avinash e Recorded In the last 12 months, was t here a time when you were not able to pay the mortgage or rent on time? No 11/11/2024 In the past 12 months, how m any times have you moved where you were living? 0 11/11/2024 At any time in the past 12 m [facility], were you homeless or living in a correction (including now)? No 11/11/2024 Personal Safety Answer Date Recorded Have you ever been in or are you currently in a harmful physical or emotional relationship or is someone making you feel afraid or unsafe? Denies 11/10/2024 Comments Unknown Sex and Gender Information Value Date Recorded Sex Assigned at Not on file Legal Sex Female 1:02 PM CDT Gender Identity Not on file Sexual Orientation Not on file Obstetrics History Last Filed Vital Signs Vital Sign Reading Time Taken Comments Blood Pressure 134/67 11/13/2024 7:28 AM CDT Pulse 56 11/13/2024 7:28 AM CDT Temperature 36.4 C (97.5 F) 11/13/2024 7:28 AM CDT Respiratory Rate 21 11/13/2024 7:28 AM CDT Oxygen Saturation 96% 11/13/2024 7:28 AM CDT Inhaled Oxygen Concentration - - Weight 124.6 kg (274 lb 12.8 oz) 11/11/2024 6:10 AM CDT Height 165.1 cm (5' 5) 11/11/2024 6:10 AM CDT Body Mass Index 45.73 11/11/2024 6:10 AM CDT Plan of Treatment Health Maintenance Due Date Last Done Comments Breast Cancer Screening-Mammogram 1982 Cervical Cancer Screening 1982 Depression Screening 1982 Hepatitis C Screening 1982 Varicella Vaccines (1 of 2 - 13+ 2-dose series) 1995 Hepatitis B Screening 02/27/2000 Regular Well Visit/Exam 18-64 02/27/2000 Pneumococcal vaccine <65 (1 of 2 - PCV) 2001 HPV Vaccines (1 - 3-dose SCDM series) 2009 Influenza Vaccine (#1) 2025 , 05/06/2023, 04/22/2021 DTaP/Tdap/Td Vaccine (2 - Td or Tdap) 12/27/2028 Insurance [facility] Address: [place] [id number] Advance Directives For more information, please contact: [phone] * Full Code (Latest Code Status on File) Date Activated Date Inactivated Comments 11/12/2024 11:59 AM 11/13/2024 4:00 PM * Full Code Date Activated Date Inactivated Comments 11/10/2024 9:53 PM 11/12/2024 11:59 AM Care Teams Vacuum Drier Operator Relationship Specialty Start Date End Date Keith Silva MD [address] [place] [address] PCP - General Family Medicine 07/17/22
--- OUTSIDE RECORDS SUMMARY | 2025-04-04 13:52 | XMS_ITS | Clinical Summary ---
Author Organization [facility] [employer] Address [address] [place] [address] Care Team Providers Care Lead Ruby On Rails Developer Name Role Phone Keith Silva MD Primary Care Provider Source Comments [facility],non-owned Affiliates and Associated Physician Practices is amultiple site organization consisting of ambulatory clinics and hospital sitesin [place], [place], [place] and [place]. This disclosure is being madepursuant to the Care Everywhere program and may not contain all information available regarding this patient. Last updated 18.[facility] Allergies Active Allergy Reactions Criticality Noted Date [...] care, and heating? Not very hard 02/10/[address] [facility] [place] [facility] - Occupational Stress [...] place to sleep or slept in a half-way (including now)? No 02/10/2024 Comments Unknown Sex [...] P M CDT Height 160 cm (5' 3) 02/10/2024 9:37 PM CDT Body Mass Index 50.77 02/10/2024 9:37 PM CDT Plan of Treatment Health Maintenance Due Date Last Done Comments LIPID TESTING 1982 MAMMOGRAM 1982 HIV SCREENING 1997 HEPATITIS C SCREENING 02/22/2000 DTAP/TDAP/TD VACCINES (1 - Tdap) 2001 HEPATITIS B VACCINE (1 of 3 - 19+ 3-dose series) 2001 PNEUMOCOCCAL VACCINE (1 of 2 - PCV) 2001 PAP SMEAR 2003 HPV VACCINE (1 - 3-dose SCDM series) 2009 DEPRESSION SCREENING 07/17/2024 COVID-19 VACCINE (1 - 2023-2 5 season) 2025 INFLUENZA VACCINE (#1) 2025 ZOSTER VACCINE (1 of 2) 02/27/2032 HIB VACCINE Aged Out No longer eligi ble based on patient's age to complete this topic MENINGOCOCCAL (Group B) VACC INE SHARED DECISION-MAKING Aged Out No longer eligibl e based on patient's age to complete this topic MENINGOCOCCAL GROUPS A/C/Y/W VACCINE Aged Out No longer eligible b ased on patient's age to complete this [place] [address] [facility] Advance Directives * Full Code (Latest Code Status on File) Date Activated Date Inactivated Comments 02/10/2024 10:27 PM 02/13/2024 2:06 PM Care Teams Lead Ruby On Rails Developer Relationship Specialty Start Date End Date Keith Silva MD [address] [id number] PCP - General Family Medicine 02/10/24
[2025-04-04 14:30] VITALS: BP 151/107; PULSE 70; RESP 20; TEMP 36.7; O2SAT 95
--- NOTE | 2025-04-04 14:31 | ED_ITS ---
HPI - Abdominal Pain General Chief Complaint: Abdominal Pain Stated Complaint: crohns flare up Time Seen by Provider: 04/04/25 14:26 Source: patient Mode of arrival: ambulatory Limitations: no limitations History of Present Illness HPI narrative: 45 years old white female came to the ED complaining of generalized abdominal pain, nausea and vomiting since yesterday. History of Crohn's. Last flare up was 1 month ago. She denies any fever or chills, diarrhea or constipation. Related Data Home Medications ?Medication ?Instructions ?Recorded ?Confirmed ?Last Taken ?Type amlodipine 10 mg tablet 10 mg PO DAILY 11/22/2302/1503/09/25 History Allergies Allergy/AdvReac Type Severity Reaction Status Date / Time Penicillins Allergy Unknown Rash Verified 03/10/25 04:30 morphine AdvReac Nausea and Verified 03/10/25 04:30 Vomiting Review of Systems 2 Review of Systems: All systems reviewed & are unremarkable except as noted in HPI and below PMFSH Past Medical History Medical History Hyperglycemia Asthma Anxiety Port-A-Cath in place History of right sided Port-A-Cath with subsequent removal placed 2011 removed proximally 2016. Placed due to poor vascular access. Crohn's disease of small intestine with complication Hypertension History of small bowel obstruction Has been treated conservatively and also required surgical intervention x 2 with adhesiolysis. Tobacco abuse Menorrhagia Hepatic steatosis Nephrolithiasis Morbid obesity 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 GERD with esophagitis Anemia Abdominal wall cellulitis Surgical History Surgical History Status post laparoscopic hernia repair laparoscopic ventral hernia repair with mesh History of exploratory laparotomy Has had what sounds like an exploratory laparotomy with adhesiolysis x 2 in [facility]. History of tonsillectomy History of appendectomy Appendix removed during 2nd exploratory laparotomy. History of cholecystectomy Laparoscopic Family History Family History Father Diabetes mellitus Mother Hypertension Sibling No problems noted. Other Crohn's colitis Social History Social History Social History: Surrogate decision maker: Dorota Clayton () Code status: Full code. Smoking packs per day: 0.1 Smoking cigarettes per day: 2.0 Years smoked: 16 Smoking pack-years: 1.60 Smoking status: Current every day smoker Tobacco type: cigarettes Second hand tobacco smoke exposure: No Alcohol intake: current Drinks per week: 1 Alcohol use details: 1-2 alcoholic beverages every 1-2 months. Substance use: current Substance use type: marijuana Other substance usage details: smokes marijauna every day Do You Feel Safe in your Home?: Yes Lack of Transportation: No Lack of Food: Never True Current Housing: I Have Housing Concerned About Future Housing: Decline to Answer Difficulty Paying Gas/Electric Bills: Decline to Answer Difficulty Paying for Meds: Decline to Answer Currently Unemployed: Decline to Answer Education: High School Diploma/GED Difficulty w/ Childcare or Family Care: No Living arrangements: with family Additional living arrangements comments: Lives in [place] with her fidarya. Recently moved to the area from [facility]. Occupation/Education: other Additional occupation/education comments: Unemployed. Spiritual care concerns: No Exam 2 Narrative: General appearance: Well-developed, well-nourished, screaming, restless Skin: Normal color Chest and respiratory: Airway patent, no respiratory distress, no accessory muscle use Heart: Regular rate/rhythm Abdomen: Generalized abdominal tenderness, difficult to examine patient screaming of all over the place Vascular: Normal peripheral pulses, normal capillary refill. Musculoskeletal: Normal range of motion, nontender back Neurologic: Alert and oriented ?3, Course Vital Signs Vital signs: Vital Signs Temperature 36.6 C 04/04/25 13:51 Pulse Rate 73 04/04/25 13:51 Respiratory Rate 04/04/25 13:51 Blood Pressure 140/108 H 04/04/25 13:51 Pulse Oximetry 97 04/04/25 13:51 Oxygen Delivery Room Air 04/04/25 13:51 Temperature 36.7 C 04/04/25 14:30 Pulse Rate 70 04/04/25 14:30 Respiratory Rate 04/04/25 14:30 Blood Pressure 151/107 H 04/04/25 14:30 Pulse Oximetry 95 04/04/25 14:30 Oxygen Delivery Room Air 04/04/25 14:30 MDM - Abdominal Pain MDM Narrative Medical decision making narrative: Patient presents with abdominal pain, history of Crohn's Vital signs are stable Physical examination showing restless, screaming patient, looks in pain, diffuse abdominal tenderness Differential diagnosis include Crohn's flare, colitis, diverticulitis, urinary tract infection, electrolyte imbalance, dehydration, anxiety like symptoms Blood workup today includes CBC, CMP, lipase, lactic acid showed WBC 19.3, platelet 422, glucose 191, otherwise within normal limit Urinalysis showed CT abdomen and pelvis with IV contrast showed Differential Diagnosis Differential diagnosis: Likely other (As above) Medical Records Attestation: I reviewed the patient's medical records. Lab Data Attestation: I reviewed the patient's lab results. 04/04/25 14:36 04/04/25 14:36 Labs: Lab Results 04/04/25 04/04/25 04/04/25 Range/Units 04:36 14:14 14:36 WBC 19.3 H (4.5-10.0) K/mm3 RBC 5.30 (4.2-5.4) M/mm3 Hgb 12.8 (12.0-15.0) g/dL Hct 40.8 (37.0-47.0) % MCV 77.0 L (80-100) fl MCH 24.2 L (26-34) pg MCHC 31.4 L (32-36) g/dl RDW 18.6 H (11.5-14.5) % Plt Count 422 H (150-375) k/mm3 MPV 9.1 (7.4-10.4) fl Immature Gran % (Auto) 0.5 (0-0.5) % Neut % (Auto) 79.5 H (45.5-73.1) % Lymph % (Auto) 13.6 L (18.3-44.2) % [place] % (Auto) 5.5 (2.6-8.5) % Eos % (Auto) 0.5 (0-4.4) % Baso % (Auto) 0.4 (0.2-1.2) % Lymph # (Auto) 2.61 (0.9-3.2) K/mm3 [place] # (Auto) 1.1 H (0.1-0.6) K/mm3 Eos # (Auto) 0.1 (0-0.3) K/mm3 Baso # (Auto) 0.1 (0.0-0.1) K/mm3 Abs Immat Gran (auto) 0.09 H (0.00-0.031) K/mm3 Absolute Neuts (auto) 15.3 H (1.3-6.7) K/mm3 Absolute Nucleated RBC 0.000 (0.0-0.012) K/mm3 Nucleated RBC % 0.0 (0.0-0.2) % Sodium 137 (137-145) mmol/L Potassium 3.9 (3.4-5.0) mmol/L Chloride 108 H (98-107) mmol/L Carbon Dioxide 18 L (22-30) mmol/L Anion Gap 11 (4-12) mmol/L BUN 15 (7-17) mg/dL Creatinine 0.94 (0.7-1.0) mg/dL Estim Creat Clear Calc 86 ml/min Estimated GFR > 60 (59 - ) Glucose 191 H (65-110) mg/dL POC Capillary Glucose 167 H (65-105) mg/dl Calcium 9.8 (8.4-10.2) mg/dL Total Bilirubin 0.5 (0.2-1.3) mg/dL AST 26 (14-36) U/L ALT 21 (6-35) U/L Alkaline Phosphatase 88 (38-126) U/L Total Protein 8.8 H (6.3-8.2) g/dL Albumin 4.7 (3.5-5.1) g/dL Lipase 63 (23-300) U/L Beta HCG, Quant < 2.39 mIU/ML Urine Color (Yellow) Urine Appearance (Clear) Urine pH (5.0-9.0) Ur Specific [place] (1.001-1.035) Urine Protein (Negative) mg/dL Urine Glucose (UA) (Negative) mg/dL Urine Ketones (Negative) mg/dL Ur Blood (Man) (Negative) Urine Nitrate (Negative) Urine Bilirubin (Negative) Urine Urobilinogen (<2.0) mg/dL Add Ur Microanalysis Leukocyte Esterase Rfl (Negative) JOANNE/UL Urine RBC (0-2) /hpf Urine WBC (0-3) /hpf Ur Squamous Epith Cells (Few) /hpf Urine Bacteria /hpf Urine Casts Hyaline Casts (None) /lpf Urine Mucus /lpf Urine Yeast (Budding) (None) /hpf 04/04/25 Range/Units 17:36 WBC (4.5-10.0) K/mm3 RBC (4.2-5.4) M/mm3 Hgb (12.0-15.0) g/dL Hct (37.0-47.0) % MCV (80-100) fl MCH (26-34) pg MCHC (32-36) g/dl RDW (11.5-14.5) % Plt Count (150-375) k/mm3 MPV (7.4-10.4) fl Immature Gran % (Auto) (0-0.5) % Neut % (Auto) (45.5-73.1) % Lymph % (Auto) (18.3-44.2) % [place] % (Auto) (2.6-8.5) % Eos % (Auto) (0-4.4) % Baso % (Auto) (0.2-1.2) % Lymph # (Auto) (0.9-3.2) K/mm3 [place] # (Auto) (0.1-0.6) K/mm3 Eos # (Auto) (0-0.3) K/mm3 Baso # (Auto) (0.0-0.1) K/mm3 Abs Immat Gran (auto) (0.00-0.031) K/mm3 Absolute Neuts (auto) (1.3-6.7) K/mm3 Absolute Nucleated RBC (0.0-0.012) K/mm3 Nucleated RBC % (0.0-0.2) % Sodium (137-145) mmol/L Potassium (3.4-5.0) mmol/L Chloride (98-107) mmol/L Carbon Dioxide (22-30) mmol/L Anion Gap (4-12) mmol/L BUN (7-17) mg/dL Creatinine (0.7-1.0) mg/dL Estim Creat Clear Calc ml/min Estimated GFR (59 - ) Glucose (65-110) mg/dL POC Capillary Glucose (65-105) mg/dl Calcium (8.4-10.2) mg/dL Total Bilirubin (0.2-1.3) mg/dL AST (14-36) U/L ALT (6-35) U/L Alkaline Phosphatase (38-126) U/L Total Protein (6.3-8.2) g/dL Albumin (3.5-5.1) g/dL Lipase (23-300) U/L Beta HCG, Quant mIU/ML Urine Color Yellow (Yellow) Urine Appearance Turbid H (Clear) Urine pH 5.0 (5.0-9.0) Ur Specific [place] 1.020 (1.001-1.035) Urine Protein Trace (Negative) mg/dL Urine Glucose (UA) Negative (Negative) mg/dL Urine Ketones Negative (Negative) mg/dL Ur Blood (Man) Negative (Negative) Urine Nitrate Negative (Negative) Urine Bilirubin Negative (Negative) Urine Urobilinogen 0.2 (<2.0) mg/dL Add Ur Microanalysis Reviewed Leukocyte Esterase Rfl Negative (Negative) JOANNE/UL Urine RBC 6-10 H (0-2) /hpf Urine WBC 0-5 (0-3) /hpf Ur Squamous Epith Cells Moderate (Few) /hpf Urine Bacteria 2+ H /hpf Urine Casts 3-5 Hyaline Casts Present (None) /lpf Urine Mucus Present /lpf Urine Yeast (Budding) Present H (None) /hpf Imaging Data Radiologist's impression: CT ABDOMEN AND PELVIS WITH IV CONTRAST SHOWED FLUID-FILLED SMALL BOWEL WITH LONG SEGMENT OF SMALL BOWEL WALL THICKENING CONSISTENT WITH ENTERITIS APPEARING SIMILAR TO PRIOR EXAM THERE IS GRADUAL TRANSITION TO DECOMPRESSED TERMINAL ILEUM. PARTIAL SMALL-BOWEL OBSTRUCTION IS NOT EXCLUDED Critical Care Time Critical Care Time Critical Care Time: No Discharge Plan Discharge Clinical Impression: Acute antritis, Partial small bowel obstruction Patient Disposition: Still a Patient Condition: Stable Instructions: Antibiotic Form Patient Language: Danish Prescriptions: No Action amlodipine 10 mg tablet 10 mg PO DAILY dicyclomine 20 mg tablet 20 mg PO QID PRN (Reason: abdominal discomfort) Qty: 20 0RF ondansetron 4 mg tablet,disintegrating 4 mg PO Q8H PRN (Reason: nausea and vomiting) Qty: 10 0RF levofloxacin 750 mg tablet 750 mg PO DAILY Qty: 5 0RF prednisone 20 mg tablet 40 mg PO DAILY Qty: 90 0RF ferrous sulfate [Feosol] 325 mg (65 mg iron) tablet 325 mg PO DAILY Qty: 30 0RF docusate sodium [Colace] 100 mg capsule 100 mg PO DAILY Qty: 30 0RF Follow-up/Referrals: Keith Silva MD [Primary Care Provider, [facility]]
[2025-04-04 14:42] LABS: Hematocrit 40.8 % (37.0-47.0); Hemoglobin 12.8 g/dL (12.0-15.0); Immature Granulocyte Percent A 0.5 % (0-0.5); Lymphocytes Absolute Auto 2.61 K/mm3 (0.9-3.2); Mean Corpuscular HGB Conc 31.4 g/dl (32-36); Mean Corpuscular Hemoglobin 24.2 pg (26-34); Mean Corpuscular Volume 77.0 fl (80-100); Nucleated Red Blood Cells Absolute Auto 0.000 K/mm3 (0.0-0.012); Nucleated Red Blood Cells Perc 0.0 % (0.0-0.2); Platelet Count Result 422 k/mm3 (150-375); Red Blood Count 5.30 M/mm3 (4.2-5.4); White Blood Count 19.3 K/mm3 (4.5-10.0)
[2025-04-04] MEDS: SODIUM CHLORIDE 0.9% IV 1,000 ML 999 ML IV CONT (14:42)
--- NOTE | 2025-04-04 15:00 | PC.NURSE ---
Patient screaming in pain in room. Patient states she has not been able to take her anxiety medication because she cannot keep anything down. MD notified of pain and anxiety.
[2025-04-04 15:01] LABS: Alanine Aminotransferase 21 U/L (6-35); Albumin Level 4.7 g/dL (3.5-5.1); Alkaline Phosphatase 88 U/L (38-126); Anion Gap 11 mmol/L (4-12); Aspartate Amino Transferase 26 U/L (14-36); Bilirubin,Total 0.5 mg/dL (0.2-1.3); Blood Urea Nitrogen 15 mg/dL (7-17); Calcium 9.8 mg/dL (8.4-10.2); Carbon Dioxide 18 mmol/L (22-30); Chloride 108 mmol/L (98-107); Estimated CRCL calculation 86 ml/min; Estimated Glomerular Filt Rate > 60; Glucose 191 mg/dL (65-110); Lipase 63 U/L (23-300); Potassium 3.9 mmol/L (3.4-5.0); Sodium 137 mmol/L (137-145); Total Protein 8.8 g/dL (6.3-8.2)
[2025-04-04] MEDS: ONDANSETRON INJ 4 MG/2 ML VIAL 8 MG IV PUSH (15:01)
[2025-04-04] MEDS: HYDROmorphone HCL INJ (*CRX) 1 MG/ML SYR 0.5 MG IV PUSH ×3 (15:01→23:41)
--- OUTSIDE RECORDS SUMMARY | 2025-04-04 15:05 | XMS_ITS | Clinical Summary ---
Author Organization [facility] [employer] Address [address] [place] [address] Care Team Providers Care Coat Hanger Shaper Machine Operator Name Role Phone Keith Silva MD Primary Care Provider [phone] Source Comments [facility] [employer],non-owned Affiliates and Associated Physician Practices is amultiple site organization consisting of ambulatory clinics and hospital sitesin [place], [place], [place] and [place]. This disclosure is being madepursuant to the Care Everywhere program and may not contain all information available regarding this patient. Last updated 18.[facility] [employer] Allergies Active Allergy Reactions Criticality Noted Date [...] care, and heating? Not very hard 02/10/2024 [facility] [facility] Occupat ional [facility] - Occupational Stress [...] place to sleep or slept in a [facility] (including now)? No 02/10/2024 Comments Unknown Sex [...] age to complete this topic [place] [place] [address] [facility] Advance Directives * Full Code (Latest Code Status on File) Date Activated Date Inactivated Comments 02/10/2024 10:27 PM 02/13/2024 2:06 PM Care Teams Coat Hanger Shaper Machine Operator Relationship Specialty Start Date End Date Keith Silva MD [address] [id number] PCP - General Family Medicine 02/10/24
--- OUTSIDE RECORDS SUMMARY | 2025-04-04 15:05 | XMS_ITS | Clinical Summary ---
Author Organization [facility] Address [address] [place] [address] Care Team Providers Care Surveyor Mine Name Role Phone Keith Silva MD Primary Care Provider [phone] Allergies Active Allergy Reactions Criticality Noted Date Comments Ciprofloxacin Rash Low 10/25/2023 Fluconazole Nausea and Vomiting 03/01/2022 Morphine Vomiting,GI Upset 11/15/2020 Nickel Rash Low 10/25/2023 Penicillins Rash,GI Upset Medium 10/24/2010 - - - - Sulfadiazine Rash Low 10/25/2023 Medications amLODIPine (NORVASC) 10 MG tablet Take 1 tablet (10 mg total) by mouth daily. Active albuterol sulfate HFA 108 (90 Base) MCG/ACT inhaler Inhale 2 puffs into the lungs every 6 (six) hours as needed for Wheezing. 18 g 4 Active hydroCHLOROthiazid e (HYDRODIURIL) 25 MG tablet Take 1 tablet (25 mg total) by mouth every morning. 4 Active dicyclomine (BENTYL) 20 MG tablet Take 1 tablet (20 mg total) by mouth 4 (four) times daily as needed (abdominal cramping). 5 Active ondansetron (ZOFRAN-ODT) 4 MG disintegrating tablet Take 1 tablet (4 mg total) by mouth every 8 (eight) hours as needed for Nausea. 5 Active pantoprazole EC (PROTONIX) 40 MG tablet Take 1 tablet (40 mg total) by mouth 2 (two) times daily. 5 Active predniSONE (DELTASONE) 20 MG tablet Take 3 tablets (60 mg total) by mouth daily. 90 tablet 5 Active oxyCODONE immediate release (ROXICODONE) 10 MG immediate release tabletIndications: Acute Pain < 7 Day Supply,ABDOMINAL PAIN 2/2 Crohns Take 1 tablet (10 mg total) by mouth every 6 (six) hours as needed. Indications: Acute Pain < 7 Day Supply, ABDOMINAL PAIN 2/2 Crohns 15 tablet 5 Active naloxone (NARCAN) 4 MG/0.1ML nasal spray 1 spray by Nasal route as needed for Opioid reversal. 2 each 5 Active Active Problems Problem Noted Date Diagnosed Date Acute Crohn's disease ([facility]) 12/08/19 Crohn disease ([facility]) 12/02/2024 Crohn's disease ([facility]) 12/09/2023 Enteritis 03/15/2022 Crohn's disease of colon wit hout complication ([facility]) 02/02/2022 Abdominal pain 02/01/2022 Exacerbation of Crohn's disease ([facility] ) 08/12/2021 Sepsis ([facility]) 05/10/2021 Microcytic anemia 01/17/2021 GERD (gastroesophageal reflux disease) 0 Overview (04/21/2021): Last Assessment & Plan: Continue PPIs. Class 3 severe obesity with serious comorbidity in adult 08/21/2019 Overview (04/21/2021): Last Assessment & Plan: Increases her overall morbidity and mortality. Exacerbation of Crohn's dise ase of small intestine ([facility]) 08/21/2019 Overview (04/21/2021): Last Assessment & Plan: Continue IV fluids, steroids and antibiotics. Per GI consultation during her last hospitalization last month, anticipating outpatient MRI enterography, prior to initiating Humira or Remicade. Tobacco dependence 08/21/2019 Overview (04/21/2021): Last Assessment & Plan: Counseled to quit on admission. Acute Crohn's disease with i ntestinal obstruction ([facility]) 07/18/2019 Poor venous access 08/29/2018 Encounter for smoking cessation counseling 07/09 Overview (04/21/2021): Last Assessment & Plan: Smoking cessation discussed with patient for four minutes nicotine patch declined SBO (small bowel obstruction) ([facility]) 05/22/2017 Overview (04/21/2021): Last Assessment & Plan: Surgery consulted appreciate recommendations NPO Pain control Antiemetics IV fluids Patient refusing NG tube at this time Hypokalemia 05/22/2017 Overview (04/21/2021): Last Assessment & Plan: K+ 3.2, K+ protocol placed Train Dispatcher with BMP in AM Intractable abdominal pain 02/12/2017 Overview (04/21/2021): Last Assessment & Plan: Likely secondary to bowel obstruction IV Morphine 2mg Q3hr PRN Ofirmev Toradol 15mg IVP Q6hr Anxiety 02/12/2017 Overview (04/21/2021): Last Assessment & Plan: Not on home med Will do as needed meds Resolved Problems Problem Noted Date Diagnosed Date Resolved Date SBO (small bowel obstruction ) ([facility]) 01/16/2021 01/17/2021 Immunizations Immunization Administration Dates Next [...] = 0.6 oz pur e alcohol) socially [facility] Utilities Answer Date Recorded In the past 12 months has th e electric, gas, oil, or water company threatened to shut off services in your home? No 12/07/2024 Humiliation, Afraid, Rape, and Kick questionnair e Answer Date Recorded Within the last year, have y ou been afraid of your partner or ex-partner? No 12/07/2024 Within the last year, have y ou been humiliated or emotionally abused in other ways by your partner or ex-partner? No Within the last year, have y ou been kicked, hit, slapped, or otherwise physically hurt by your partner or ex-partner? No 12/07/2024 Within the last year, have y ou been raped or forced to have any kind of sexual activity by your partner or ex-partner? No 12/07/2024 Social Connection and Isolat ion Panel [NHANES] Answer Date Recorded In a typical week, how many times do you talk on the phone with family, friends, or neighbors? More than three times a week 09/22/2023 How often do you get togethe r with friends or relatives? Once a week 09/22/2023 How often do you attend [facility] or baptist services? Never 09/22/2023 Do you belong to any clubs o r organizations such as pentecostal groups, unions, fraternal or athletic groups, or [...] care, and heating? Not hard at all 12/07/2024 PHQ-2 Answer Date Recorded Patient Health Questionnaire-2 Score 3 09/22/2023 [facility] - Occupational Stress Questionnaire Answer Date Recorded [...] the money to buy more. Never true 12/08/19 25 Within the past 12 months, t he food you bought just didn't last and you didn't have money to get more. Never true 12/07/2024 PRAPARE - Transportation Answer Date Re corded In the past 12 months, has l ack of transportation kept you from medical appointments or from getting medications? No 11/15 In the past 12 months, has l ack of transportation kept you from meetings, work, or from getting things needed for daily living? No 12/07/2024 Housing Stability Vital Sign Answer Avinash e [...] place to sleep or slept in a retirement (including now)? No 09/22/2023 Housing Stability Vital Sign Answer Avinash e Recorded In the last 12 months, was t here a time when you were not able to pay the mortgage or rent on time? No 12/07/2024 In the past 12 months, how m any times have you moved where you were living? 0 12/07/2024 At any time in the past 12 m [facility], were you homeless or living in a retirement (including now)? No 12/07/2024 Comments Unknown Sex and Gender Information Value [...] Sign Reading Time Taken Comments Blood Pressure 149/83 12/11/2024 11:29 AM CDT Pulse 50 12/11/2024 11:29 AM CDT Temperature 36.4 C (97.5 F) 12/11/2024 4:22 AM CDT Respiratory Rate 18 12/11/2024 11:2 9 AM CDT Oxygen Saturation 99% 12/11/2024 11: 29 AM CDT Inhaled Oxygen Concentration - - Weight 124.6 kg (274 lb 11.1 oz) 12/07/2024 6:22 AM CDT Height 160 cm (5' 3) 12/07/2024 1:35 AM CDT Body Mass Index 48.66 12/07/2024 1:35 AM CDT Plan of Treatment Health Maintenance Due Date Last Done Comments Cervical Cancer Screening Pa p Smear (Age 30 to 64) Every 3 Years 1982 Annual Physical 1985 Hepatitis B Vaccines (1 of 3 - 19+ 3-dose series) 2001 Pneumococcal Vaccine: Pediatrics (0 to 5 Years) and At-Risk Patients (6 to 49 Years) (1 of 2 - PCV) 2001 HPV Vaccines (1 - 3-dose SCD M series) 2009 Cervical Cancer Screening Pa p with HPV Testing (Age 30 to 64) Every 5 Years 02/27/2012 Cervical Cancer Screening wi th HPV 02/27/2012 Mammogram Screening 2022 PHQ-2 (Physician [place]) 07/17/2024 09/22/2023 COVID-19 Vaccine (2023-2 5 season) 2025 DTaP, Tdap and Td Vaccines ( 3 - Td or Tdap) 12/27/2028 12/27/2018, 08/29/2018 Hepatitis C Completed 09/23/2023, 08/09/2019 Meningococcal B Vaccine Aged Out No l [...] from hospital Lifestyle No Lashae Howard MSW Medical Devices Implanted Type Area Instrument Technician Device Identifier Shelf Expiration Date Model / Serial / Lot Mesh Mesh Abdomen Pillcam Implanted:Qty: 1 on 10/30/2023 by Sera Coronado RN at [facility] 12/18/2024 / [id number] / [id number] Description:Cindy Reyes RN implanted Procedures Procedure Name Priority Date/Time Associated Diagnosis Comments HC EIA QL HEPATITIS ABC B AG Routine 09/23/2023 3:47 PM [employer]OUN[employer] from Last 3 Months or Most Recently Relevant to Health Maintenance Results * HEPATITIS A,B,& C (09/23/2023 3:47 PM [employer]) HEPATITIS B SURFACE AG NON-REACTIVE NON-REACT CONSUELO 09/23/2023 5:44 PM [employer]OUN[employer] [facility] HEP B CORE TOTAL AB NON-REACTIVE NON-REACT CONSUELO 09/23/2023 5:44 PM [employer] [facility] HEP B SURFACE AB REACTIVE 09/23/2023 5:46 PM [employer] [facility] HAV IGM NON-REACTIVE NON-REACT CONSUELO 09/23/2023 5:44 PM [employer] [facility] HEPATITIS C AB NON-REACTIVE NON-REACT CONSUELO 09/23/2023 5:44 PM [employer] [facility] 09/23/2023 3:47 PM [employer] Alfa Marrero DO LABORATORY Final Result [facility] [address] [place] [address], [place] [phone] from Last 3 Months or Most Recently Relevant to Health Maintenance Insurance [facility] Advance Directives * Full Code (Latest Code Status on File) Date Activated Date Inactivated Comments 12/07/2024 5:04 AM 12/11/2024 5:12 PM * Full Code Date Activated Date Inactivated Comments 12/02/2024 2:41 PM 12/03/2024 4:12 PM * Full Code Date Activated Date Inactivated Comments 12/08/2023 8:10 PM 12/10/2023 3:45 PM * Full Code Date Activated Date Inactivated Comments 09/22/2023 5:59 AM 09/27/2023 1:09 PM * Full Code Date Activated Date Inactivated Comments 05/02/2023 4:26 PM 05/06/2023 12:54 PM Care Teams Surveyor Mine Relationship Specialty Start Date End Date Keith Silva MD [address] [place] [address] PCP - General FAMILY PRACTICE 11/15/20
--- OUTSIDE RECORDS SUMMARY | 2025-04-04 15:05 | XMS_ITS | Encounter Summary ---
Author Organization [facility] Address [facility] [place] [address] Care Team Providers Care Veterans Services Specialist Name Role Phone Keith Silva MD Primary Care Provider [phone] Encounter Details Date Type Department Care Team (Late st Contact Info) Description 07/19/2021 Prep for Procedure [facility] [place] [address] Alfa Marrero, DO [address] [facility] [address] [place], [place] [id number] Social History Tobacco Use Types Packs/Day Years [...] often do you attend chur ch or worship services? Never 04/21/2021 Do you belong to [...] move on to questions 3-9 0 04/21/2021 [facility] - Occupational [...] place to sleep or slept in a [place] facility (including now)? No 04/21/2021 Comments No Sex [...] COVID-19? No / Unsure 07/20/2021 9:39 AM LINE PERSON documented as of this encounter Functional Status [...] Status No Risk Indicated 07/20/2021 9:54 AM Franchesca De Guzman RN Active * [place] Suicide Severity Rating Scale (Screener/Recent Self-Report) Question [...] this encounter Visit Diagnoses Diagnosis Crohn's colitis ([facility])- Primary Regional enteritis of large intestine documented in this encounter Additional Health Concerns Infection Onset Date Last Indicated Resolved Time COVID-19 Rule Out 07/19/2021 07/19/2021 07/19/2021 10:23 AM LINE PERSON COVID-19 Rule Out 07/19/2021 07/19/2021 07/19/2021 4:26 PM LINE PERSON COVID-19 Rule Out 10/29/2021 10/29/2021 10/29/2021 9:08 PM CDT Norovirus 05/08/2023 05/08/2023 06/05/2023 12:3 2 AM LINE PERSON COVID-19 Rule Out 09/07/2023 09/07/2023 09/07/2023 12:45 PM LINE PERSON COVID-19 Rule Out 09/08/2023 09/08/2023 09/08/2023 6:46 PM LINE PERSON Assessment Noted Time PHQ-9 Depression Total Score: 0 04/21/20 21 1:26 PM CDT documented as of this encounter Care Teams Veterans Services Specialist Relationship Specialty Start Date End Date Keith Silva MD [address] [place] [address] PCP - General FAMILY PRACTICE 11/15/20 documented as of this encounter
--- OUTSIDE RECORDS SUMMARY | 2025-04-04 15:05 | XMS_ITS | Encounter Summary ---
Author Organization [facility] Address [facility] [place] [address] Care Team Providers Care Account Service Associate Name Role Phone Keith Silva MD Primary Care Provider [phone] Reason for Visit * Reason Onset Date Comments Pre-op Question(s) 10/25/2023 Encounter Details Date Type Department Care Team (Late st Contact Info) Description 10/25/2023 Pre-Procedure Call [facility] Endo/GI [address] [facility] [place] [address] Bladimir Claudio MD [address] [place] [phone] Pre-op Question(s) Social History Tobacco Use Types Packs/Day Years Used Date Smoking Tobacco: Light Smoker Cigarettes Smokeless Tobacco: Never Tobacco Cessation:Ready to Q uit: Not Asked; Counseling Given: Not Answered Alcohol Use Standard Drinks/Week Comments Yes 0 (1 standard drink = 0.6 oz pur e alcohol) socially [facility] Utilities Answer Date Recorded In the past 12 months has [employer], oil, or water [email or web address] threatened to shut off services in your [...] often do you attend chur ch or holiness services? Never 09/22/2023 Do you belong to any clubs o r organizations such as yazidi groups, unions, fraternal or athletic groups, or [...] Recorded Patient Health Questionnaire-2 Score 3 09/22/2023 [facility] - [...] slept in a half-way (including now)? No 09/22/2023 Comments No Sex [...] Assessment Author Status No 09/22/2023 1:05 PM STAFFING RECRUITER Greiff, Yasmin D, RN Active * Because of a physical, mental, or emotional condition, do you have difficulty doing errands alone such as visiting a doctor's office or shopping? Answer Date of Assessment Author Status No 09/22/2023 1:05 PM STAFFING RECRUITER Yasmin Whitley RN Active documented as of [...] Depression Total Score: 15 024 8:40 AM STAFFING RECRUITER documented as of this encounter Care Teams Account Service Associate Relationship Specialty Start Date End Date Keith Silva MD [address] [place] [address] PCP - General FAMILY PRACTICE 11/15/20 documented as of this encounter
--- OUTSIDE RECORDS SUMMARY | 2025-04-04 15:05 | XMS_ITS | Encounter Summary ---
Author Organization [facility] Address [facility] [place] [address] Care Team Providers Care Vegetable Specker Name Role Phone Keith Silva MD Primary Care Provider [phone] Encounter Details Date Type Department Care Team (Late st Contact Info) Description 11/02/2021 Prep for Procedure [facility] [place] [address] Alfa Marrero, DO 4 [facility] [address] [place], [place] [phone] Social History Tobacco Use Types Packs/Day Years [...] often do you attend chur ch or yarsanism services? Never 04/21/2021 Do you belong to any clubs o r organizations such as gnosticist groups, unions, fraternal or athletic groups, or [...] move on to questions 3-9 0 04/21/2021 [facility] Occup[facility] Health - Occupational Stress [...] slept in a retirement (including now)? No 04/21/2021 Comments No Sex [...] Assessment Author Status No 08/12/2021 11:04 AM ALUMNI RELATIONS OFFICER Acti ve * RETIRED Are you blind or do you have serious difficulty seeing, even when wearing glasses? Answer Date of Assessment Author Status No 08/12/2021 11:04 AM ALUMNI RELATIONS OFFICER Acti ve * Do you have serious difficulty walking or climbing stairs? Answer Date of Assessment Author Status No 08/12/2021 11:04 AM Kiara Marinelli RN Active * Do you have difficulty dressing or bathing? Answer Date of Assessment Author Status No 08/12/2021 11:04 AM Kiara Marinelli RN Active * Because of a physical, mental, or emotional condition, do you have difficulty doing errands alone such as visiting a doctor's office or shopping? Answer Date of Assessment Author Status No 08/12/2021 11:04 AM Kiraa Marinelli RN Active * Calculated C-SSRS Risk Score (Lifetime/Recent) Answer Date of Assessment Author Status No Risk Indicated 11/02/2021 5:24 AM CDT Gabi Godinez RN Active * [place] Suicide Severity Rating Scale (Screener/Recent Self-Report) Question Answer Date of Assessment Author Status 1. Wish to be (Past 1 Month) No 11/02/2021 5:24 AM CDT Gabi Godinez, RN Activ e 2. Non-Specific Active Suicidal Thoughts (Past 1 Month) No 11/02/2021 5:24 AM CDT Gabi Godinez RN Activ e 6. Suicidal Behavior (Lifetime) No 11/02/2021 5:24 AM CDT Gabi Godinez, RN Activ e documented as of this encounter Mental Status * Because of a physical, mental, or emotional condition, do you have serious difficulty concentrating, remembering, or making decisions? Answer Entry Date Author Status No 08/12/2021 11:04 AM ALUMNI RELATIONS OFFICER Kiara Mir RN Active documented in this [...] SPEC DESCRIPTION NASAL 10/30/19 10:00 AM CDT [facility] CORONAVIRUS SARS COV 2 PCR (RESP) NEGATIVE NEGATIVE 10/29/2021 9:08 PM CDT [facility] Comment: THE SARS-CoV-2 TEST HAS BEEN AUTHORIZED BY THE FDA UNDER AN EUA FOR USE BY AUTHORIZED LABORATORIES. PERFORMED BY NUCLEIC ACID AMPLIFICATION PCR FIRST TEST NO 10/29/2021 10:00 AM CDT [facility] EMPLOYED IN HEALTHCARE NO 10/29/2021 10:00 AM CDT [facility] SYMPTOMATIC DEFINED BY CDC NO 10/29/2021 10:00 AM CDT [facility] HOSPITALIZATION STATUS NO 10/29/2021 10:00 AM CDT [facility] PATIENT IN ICU NO 10/29/2021 10:00 AM CDT [facility] RESIDENT OF [facility] CARE NO 10/29/2021 10:00 AM CDT [facility] NOT 10/29/2021 10:00 AM CDT [facility] NASAL STRUCTURE / Unknown 10/29/2021 9:56 AM CDT Alfa Marrero DO MICROBIOLOGY - GENERAL ORDERABL ES Final Result [facility] [address] [place] [address], [facility] [address] [place] [id number], [place] [phone] documented in this encounter Visit Diagnoses Diagnosis Colitis- Primary Other and unspecified noninfectious gastroenteritis and colitis documented in this encounter Additional Health Concerns Infection Onset Date Last Indicated Resolved Time Norovirus 05/08/2023 05/08/2023 06/05/2023 12:3 2 AM ALUMNI RELATIONS OFFICER COVID-19 Rule Out 09/07/2023 09/07/2023 09/07/2023 12:45 PM ALUMNI RELATIONS OFFICER COVID-19 Rule Out 09/08/2023 09/08/2023 09/08/2023 6:46 PM ALUMNI RELATIONS OFFICER Assessment Noted Time PHQ-9 Depression Total Score: 0 04/21/20 1:26 PM CDT documented as of this encounter Care Teams Vegetable Specker Relationship Specialty Start Date End Date Keith Silva MD [address] [place] [address] PCP - General FAMILY PRACTICE 11/15/20 documented as of this encounter
--- OUTSIDE RECORDS SUMMARY | 2025-04-04 15:05 | XMS_ITS | Clinical Summary ---
Author Organization [facility] al Address [address] [place] [address] Care Team Providers Care Contact Manager Name Role Phone Keith Silva MD [...] Q uit: Not Asked; Counseling Given: No [facility] Utilities Answer Date Recorded In the past 12 months has [employer], oil, or water [employer] threatened to shut off services in your home? No 11/11/2024 Social Connection and Isolation Panel Answer Date Recorded In a typical week, how many times do you talk on the phone with family, friends, or neighbors? Three times a week 11/11/2024 How often do you get togethe r with friends or relatives? Three times a week 11/11/2024 How often do you attend [facility] or confucianist services? Never 11/11/2024 Do you belong to any clubs o r organizations such as sabianist groups, unions, fraternal or athletic groups, or [...] any time in the past 12 m [facility], were you homeless or living in a retirement (including now)? No 11/11/2024 Personal Safety Answer [...] (2 - Td or Tdap) 12/27/2028 Insurance [facility] Member Subscriber Plan / Payer (Ef fective 2021-Present) Name:Roma Clayton Member ID:[id number] Relation to Subscriber:Spouse Name:Dorota Clayton Subscriber ID:[id number] Date of :1988 Address: [address] [place] [address] Payer ID:[id number] (NAIC) [facility] Address: [place] [phone] Advance Directives For more information, please contact: [phone] * Full Code (Latest Code Status on File) Date Activated Date Inactivated Comments 11/12/2024 11:59 AM 11/13/2024 4:00 PM * Full Code Date Activated Date Inactivated Comments 11/10/2024 9:53 PM 11/12/2024 11:59 AM Care Teams Contact Manager Relationship Specialty Start Date End Date Keith Silva MD [address] [place] [address] PCP - General Family Medicine 07/17/22
[2025-04-04] MEDS: diazePAM INJ (*CRX) 10 MG/2 ML SYRINGE 5 MG IV PUSH (15:06)
[2025-04-04 17:55] LABS: Add Urine Microscopic? YES; Appearance Urine Turbid (Clear); Budding Yeast Urine Present /hpf; Glucose Urine UA Negative (Negative); Leukocyte Esterase Ur Negative LEU/UL (Negative); Need Manual Microscopic Reviewed; Nitrate Urine Negative (Negative); Specific Grav Ur 1.020 (1.001-1.035)
[2025-04-04 17:58] LABS: Beta HCG Quantitative < 2.39 mIU/ML
[2025-04-04] MEDS: METOCLOPRAMIDE HCL INJ 10 MG/2 ML VIAL IV PUSH (19:31)
[2025-04-04] MEDS: cefTRIAXone 1 GM in SODIUM CHLORIDE 0.9% IV 50 ML 100 ML IVPB (22:15)
[2025-04-04 22:52] VITALS: BMI 47.8
[2025-04-04 22:53] VITALS: BMI 47.8
--- NOTE | 2025-04-04 22:53 | ADMGEN ---
This patient, Roma Clayton, was admitted to Medical Room 261-01. Patient/family oriented to hospital policies and general routines including ID bracelet, bed and alarms, visiting hours, pain management, procedures, bathroom and other care routines, personal items, smoking policy, room service/diet, and visiting hours. Information on how to activate the Rapid Response Team has been discussed. Patient/Family are encouraged to report perceived risks to care and to ask questions if they do not understand what they are told or what they should do.
[2025-04-04 22:55] VITALS: BP 151/70; PULSE 71; RESP 18; TEMP 36.6; O2SAT 98
--- NOTE | 2025-04-04 23:29 | PM.IMHP ---
H&P: HPI History of Present Illness Date/Time: 04/04/25 23:29 Chief Complaint: Abdominal pain Narrative: This is a 45-year-old female patient who has a history of Crohn's disease.(she was discharged from this facility on 03/12/2025 with Crohn's disease and was evaluated by GI. She was on a steroid taper. She also had blood cultures that had no growth ). Today her white count was noted to be 19.3 however she is currently on steroids. Her H&H is 12.8 and 40.8. This is an improvement from her last admission. Her glucose on the chemistry was 191 and point of care Accu-Chek was 167. Her urine bacteria is 2+ and she had urine yeast. CT of the abdomen was read as the following1. Enterocolitis persists, not significantly changed from 1 month prior. 2. No complicating features. GI has been consulted.. The patient was started on Rocephin and Flagyl. She was also given Benadryl, normal saline, Zofran and Dilaudid in the emergency room. The patient is being admitted to observation status on the date of service of 04/04/2025. Review of Systems Constitutional: Constitutional: Reports as per HPI and Reports no additional constitutional complaints Eyes: Eyes: Reports as per HPI and Reports no additional eye complaints ENT: Reports no additional ear, nose, mouth, and throat complaints and Reports Normal hearing present Cardiovascular: Cardiovascular: Reports no additional cardiovascular complaints Respiratory: Respiratory: Reports as per HPI and Reports no additional respiratory complaints Gastrointestinal: Gastrointestinal: Reports as per HPI and Reports no additional gastrointestinal complaints Genitourinary: Genitourinary: Reports no additional female genitourinary complaints Musculoskeletal: Musculoskeletal: Reports no additional musculoskeletal complaints Integumentary/Breasts: Skin/Breast: Reports system reviewed and no additional complaints, except as docu Neurologic: Reports no additional neurologic complaints and Reports Normal hearing present Psychiatric: Psychiatric: Reports no additional psychiatric complaints and Reports as per HPI Hematologic/Lymphatic: Hematologic/Lymphatic: Reports no additional hematologic/lymphatic complaints Allergic/Immunologic: Allergic/Immunologic: Reports no additional allergic/immunologic complaints [facility] Past Medical History Medical History (Updated 04/05/25 @ 14:08 by Car Ruiz MD) Leukocytosis Iron deficiency anemia Anemia of chronic disease Hyperglycemia Asthma Anxiety Port-A-Cath in place History of right sided Port-A-Cath with subsequent removal placed 2011 removed proximally 2017. Placed due to poor vascular access. Crohn's disease of small intestine with complication Hypertension History of small bowel obstruction Has been treated conservatively and also required surgical intervention x 2 with adhesiolysis. Tobacco abuse Menorrhagia Hepatic steatosis Nephrolithiasis Morbid obesity 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 GERD with esophagitis Anemia Abdominal wall cellulitis Surgical History Surgical History (Updated 04/04/25 @ 23:43 by Naina Clayton APRN) History of esophagogastroduodenoscopy (EGD) History of colonoscopy Status post laparoscopic hernia repair laparoscopic ventral hernia repair with mesh History of exploratory laparotomy Has had what sounds like an exploratory laparotomy with adhesiolysis x 2 in [facility]. History of tonsillectomy History of appendectomy Appendix removed during 2nd exploratory laparotomy. History of cholecystectomy Laparoscopic Family History Family History Father Diabetes mellitus Mother Hypertension Sibling No problems noted. Other Crohn's colitis Social History Social History (Updated 04/04/25 @ 23:45 by Naina Clayton APRN) Social History: She works at [email or web address] and is to Dorota Surrogate decision maker: Dorota Clayton () Code status: Full code. Smoking packs per day: 0.25 Smoking cigarettes per day: 5.0 Years smoked: 16 Smoking pack-years: 4.00 Smoking status: Current every day smoker Tobacco type: cigarettes Second hand tobacco smoke exposure: No Alcohol intake: never Alcohol use details: 1-2 alcoholic beverages every 1-2 months. Substance use type: marijuana Other substance usage details: smokes marijauna every day Do You Feel Safe in your Home?: Yes Lack of Transportation: No Lack of Food: Never True Current Housing: I Have Housing Concerned About Future Housing: Decline to Answer Difficulty Paying Gas/Electric Bills: Decline to Answer Difficulty Paying for Meds: Decline to Answer Currently Unemployed: No Education: High School Diploma/GED Difficulty w/ Childcare or Family Care: No Living arrangements: with family Additional living arrangements comments: Lives in [place] with her . Recently moved to the area from [facility]. Occupation/Education: occupation Additional occupation/education comments: She works at [email or web address] Gender identity (if verbalized by the patient): Female Sexual Orientation (if Verbalized by the Patient): Lesbian, Lui, or Homosexual Spiritual care concerns: No Meds Home Medications and Allergies Home Medications ?Medication ?Instructions ?Recorded ?Confirmed ?Type amlodipine 10 mg tablet 10 mg PO DAILY 11/22/23 04/04/25 History dicyclomine 20 mg tablet 20 mg PO QID PRN abdominal 11/06/24 04/04/25 Rx discomfort #20 tabs ondansetron 4 mg disintegrating 4 mg PO Q8H PRN nausea and 11/06/24 04/04/25 Rx tablet vomiting #10 tabs docusate sodium 100 mg capsule 100 mg PO DAILY #30 caps 03/12/25 04/04/25 Rx (Colace) albuterol sulfate 0.63 mg/3 mL 0.63 mg inhalation Q6H PRN 04/04/25 04/04/25 History solution for nebulization shortness of breath or wheezing clonazepam 0.5 mg tablet (Klonopin) 0.5 mg PO Q8H PRN anxiety 04/04/25 04/04/25 History prednisone 20 mg tablet 20 mg PO DAILY 04/04/25 04/04/25 History Allergies Allergy/AdvReac Type Severity Reaction Status Date / Time Penicillins Allergy Unknown Rash Verified 04/04/25 23:17 morphine AdvReac Nausea and Verified 04/04/25 23:17 Vomiting Vital Signs Vital Signs - 24 hr 04/04/25 13:51 04/04/25 14:30 04/04/25 22:55 Temperature 97.9 F 98.0 F 98 F Pulse Rate 73 70 71 Respiratory Rate 20 20 18 Blood Pressure 140/108 H 151/107 H 151/70 H Pulse Oximetry 97 95 98 Oxygen Delivery Room Air Room Air Exam Const: General: cooperative, no acute distress, well developed, awake, Physically active and average body habitus Nutritional Appearance: well nourished Orientation/consciousness: oriented to person, oriented to place, oriented to time and patient oriented x3 Limitations: no limitations HENMT: Head: normal to inspection, No palpable skull fracture present, normocephalic, atraumatic and abrasion Ears: hearing grossly normal bilaterally and external ears normal Eyes: General: appearance normal, both eyes and all related structures Alignment and Position: alignment normal EOM: EOMs intact bilaterally Neck: Neck: normal visual inspection, full ROM and no lymphadenopathy Chest: Chest palpation & inspection: normal inspection of the chest Resp: Effort & Inspection: normal respiratory effort Auscultation: clear to auscultation bilaterally Cardio: Palpation: normal PMI Rate: regular rate Rhythm: regular rhythm Heart sounds: S1 normal heart sound present and S2 normal heart sound present Peripheral pulses: Peripheral pulses 2+ throughout GI: Inspection: normal to inspection Auscultation: Hypoactive bowel sounds present Rectal Exam: deferred Other: Generalized tenderness to mild palpation. Back/Spine/Pelvis: Back: no CVA tenderness Skin: General skin exam: normal color Lesions: no lesions Rashes: no rashes Trauma: no lacerations or abrasions Wounds: no wounds Hair: normal Nails: normal Neuro: General: oriented to person, oriented to place, oriented to time and patient oriented x3 Cranial nerves: Yes Equal, round and reactive pupils present and Yes Normal hearing present Cognition (Neuro): normal cognition Speech: normal speech Motor exam (neuro): 5/5 motor strength present throughout Sensory Exam: normal sensation Extrem: General: normal to inspection Right upper extremity: normal to inspection and shoulder/upper arm Left upper extremity: normal to inspection and shoulder/upper arm Right lower extremity: normal to inspection Left lower extremity: normal to inspection Psych: Appearance: grossly normal Mental Status: mental status grossly normal Speech and movement: Normal speech and movement present Affect: normal affect Attitude: cooperative Thought process: Normal thought process present Thought content: Yes Normal thought content present Insight: Good insight present (Psych) Judgement: Good judgement present (Psych) H&P: Results Labs Labs: Short CBC 04/04/25 Range/Units 14:36 WBC 19.3 H (4.5-10.0) K/mm3 Hgb 12.8 (12.0-15.0) g/dL Hct 40.8 (37.0-47.0) % Plt Count 422 H (150-375) k/mm3 BMP 04/04/25 14:36 Sodium 137 Potassium 3.9 Chloride 108 H Carbon Dioxide 18 L BUN 15 Creatinine 0.94 Glucose 191 H Calcium 9.8 Liver Function 04/04/25 Range/Units 14:36 Total Bilirubin 0.5 (0.2-1.3) mg/dL AST 26 (14-36) U/L ALT 21 (6-35) U/L Alkaline Phosphatase 88 (38-126) U/L Albumin 4.7 (3.5-5.1) g/dL Urine 04/04/25 Range/Units 17:36 Urine Color Yellow (Yellow) Urine Appearance Turbid H (Clear) Urine pH 5.0 (5.0-9.0) Ur Specific [place] 1.020 (1.001-1.035) Urine Protein Trace (Negative) mg/dL Urine Glucose (UA) Negative (Negative) mg/dL Imaging CT scan - abdomen: Radiologist's impression: Impressions Abdomen/Pelvis CT 04/04/25 20:46 IMPRESSION: 1. Enterocolitis persists, not significantly changed from 1 month prior. 2. No complicating features. Assessment and Plan Assessment and plan (1) Acute Crohn's disease with intestinal obstruction: Code(s): K50.912 - Crohn's disease, unspecified, with intestinal obstruction Status: Acute Assessment and Plan: -the patient was discharged from here on 03/12/2025 and had been evaluated by GI. The patient's status improved at that time. She was placed on prednisone and Levaquin. She is still on a steroid taper. The patient stated that she is in the middle of biologics. It was noted that the patient is no longer a candidate for Stelara. It was noted that the patient will be switched to guselkumab. -may consider Levsin IM tonight. Typically she would take Bentyl at home but she is NPO at this time. -the patient stated she has been on mesalamine in the past and it did not help her. -she has leukocytosis which could be related to the steroid use our could be reactive. (2) Partial small bowel obstruction: Code(s): K56.600 - Partial intestinal obstruction, unspecified as to cause Status: Acute Assessment and Plan: -the patient is NPO at this time. GI has been consulted. -Abdomen/Pelvis CT 04/04/25 20:46 IMPRESSION: 1. Enterocolitis persists, not significantly changed from 1 month prior. 2. No complicating features -GI consult was greatly be appreciated. -the patient was started on Rocephin and Flagyl. The patient has completed a dose of Levaquin outpatient. -previous cultures were negative. -continue with pain management (3) Anxiety: Code(s): F41.9 - Anxiety disorder, unspecified Status: Chronic Assessment and Plan: -she is on Klonopin at home but is currently NPO. She was given diazepam in the emergency room. -p.r.n. hydroxyzine IV. However use this cautiously as she is already on Benadryl p.r.n. (4) Hypertension: Code(s): I10 - Essential (primary) hypertension Status: Chronic Assessment and Plan: -p.r.n. Hydralazine with parameters. Patient is NPO so her amlodipine is on hold at this time. (5) Hyperglycemia: Code(s): R73.9 - Hyperglycemia, unspecified Status: Acute Assessment and Plan: -the patient had a A1c of 5.2 on 03/12/2025. However she has been on prednisone and her glucose was 191 on her chemistry today. -will start sliding scale insulin. (6) GERD (gastroesophageal reflux disease): Code(s): K21.9 - Gastro-esophageal reflux disease without esophagitis Status: Chronic Assessment and Plan: -IV famotidine
[2025-04-04] MEDS: ONDANSETRON INJ 4 MG/2 ML VIAL IV PUSH (23:42)
[2025-04-04] MEDS: metroNIDAZOLE 500 MG/ISO 100ML 500 MG/100 ML BAG 100 MG IVPB (23:45)
[2025-04-04] MEDS: SODIUM CHLORIDE 0.9% IV 1,000 ML 150 ML IV CONT (23:45)
[2025-04-05] MEDS: HYOSCYAMINE SULFATE 0.5 MG/ML AMPUL 0.25 MG IM (00:39)
[2025-04-05] MEDS: KETOROLAC 15 MG/ML VIAL (*BKC) IV PUSH ×3 (03:53→21:58)
[2025-04-05] MEDS: ONDANSETRON INJ 4 MG/2 ML VIAL IV PUSH ×4 (05:25→19:13)
[2025-04-05] MEDS: HYDROmorphone HCL INJ (*CRX) 1 MG/ML SYR 0.5 MG IV PUSH ×4 (05:25→19:13)
[2025-04-05] MEDS: metroNIDAZOLE 500 MG/ISO 100ML 500 MG/100 ML BAG 100 MG IVPB ×3 (05:31→22:44)
[2025-04-05 05:59] VITALS: BP 153/75; PULSE 68; RESP 18; TEMP 36.1; O2SAT 99
--- NOTE | 2025-04-05 07:27 | PM.IMPN ---
Progress Note: A&P Assessment and Plan (1) Acute Crohn's disease with intestinal obstruction: Code(s): K50.912 - Crohn's disease, unspecified, with intestinal obstruction Status: Acute Assessment and Plan: -the patient was discharged from here on 03/12/2025 and had been evaluated by GI. The patient's status improved at that time. She was placed on prednisone and Levaquin. She is still on a steroid taper. The patient stated that she is in the middle of biologics. It was noted that the patient is no longer a candidate for Stelara. It was noted that the patient will be switched to guselkumab. -may consider Levsin IM tonight. Typically she would take Bentyl at home but she is NPO at this time. -the patient stated she has been on mesalamine in the past and it did not help her. -GI consulted -NPO, IV fluids -pain ocntrol (2) Partial small bowel obstruction: Code(s): K56.600 - Partial intestinal obstruction, unspecified as to cause Status: Acute Assessment and Plan: -the patient is NPO at this time. GI has been consulted. -Abdomen/Pelvis CT 04/04/25 20:46 IMPRESSION: 1. Enterocolitis persists, not significantly changed from 1 month prior. 2. No complicating features -GI consult was greatly be appreciated. -the patient was started on Rocephin and Reglan. The patient has completed a dose of Levaquin outpatient. -previous cultures were negative. -continue with pain management (3) Anxiety: Code(s): F41.9 - Anxiety disorder, unspecified Status: Chronic Assessment and Plan: -she is on Klonopin at home but is currently NPO. She was given diazepam in the emergency room. -p.r.n. hydroxyzine IV. However use this cautiously as she is already on Benadryl p.r.n. (4) Hypertension: Code(s): I10 - Essential (primary) hypertension Status: Chronic Assessment and Plan: -p.r.n. Hydralazine with parameters. Patient is NPO so her amlodipine is on hold at this time. (5) Hyperglycemia: Code(s): R73.9 - Hyperglycemia, unspecified Status: Acute Assessment and Plan: -the patient had a A1c of 5.2 on 03/12/2025. However she has been on prednisone and her glucose was 191 on her chemistry today. -sliding scale insulin. -blood sugars reviewed. (6) GERD (gastroesophageal reflux disease): Code(s): K21.9 - Gastro-esophageal reflux disease without esophagitis Status: Chronic Assessment and Plan: -IV famotidine Subjective Date/time seen: 04/05/25 07:27 Interval history: Patient seen for a follow up visit. Patient seen in her room, lying in bed, in some distress from pain. Hilario reports she is still having abdominal pain with nausea and the PRN medications are helping. Patient remains NPO and on IV fluids. GI is consulted. Repeat labs ordered for this afternoon. Review of Systems Review of Systems: All systems reviewed & are unremarkable except as noted in HPI and below Exam Const: General: no acute distress HENMT: Mouth: Yes moist mucous membranes Eyes: General: appearance normal, both eyes and all related structures Sclera: sclerae normal Neck: Neck: supple Resp: Effort & Inspection: normal respiratory effort Auscultation: clear to auscultation bilaterally Cardio: Rate: regular rate Rhythm: regular rhythm GI: GI Palp: Yes Soft to palpation and Yes Tenderness to palpation present (GI) Auscultation: normal bowel sounds Skin: General skin exam: normal color and no rashes or lesions noted Neuro: Speech: normal speech Motor exam (neuro): 5/5 motor strength present throughout Sensory Exam: normal sensation Extrem: General: normal to inspection Psych: Mental Status: mental status grossly normal Objective Data Vital Signs Vital Signs: Vital Signs - 24 hr 04/04/25 13:51 04/04/25 14:30 04/04/25 22:55 Temperature 97.9 F 98.0 F 98 F Pulse Rate 73 70 71 Respiratory Rate 20 20 18 Blood Pressure 140/108 H 151/107 H 151/70 H Pulse Oximetry 97 95 98 Oxygen Delivery Room Air Room Air 04/05/25 05:59 Temperature 97 F L Pulse Rate 68 Respiratory Rate 18 Blood Pressure 153/75 H Pulse Oximetry 99 Oxygen Delivery Intake/Output Intake/Output: Intake & Output 04/02/25 04/03/25 04/04/25 04/05/25 23:59 23:59 23:59 23:59 Intake Total 1050 100 Balance 1050 100 Meds/Results Medications: Active Medications Generic Name Dose Route Start Last Admin Trade Name Freq PRN Reason Stop Dose Admin Albuterol 2.5 mg 04/05/25 00:20 Albuterol Sulfate Neb 2.5 Mg/3 Ml Inh INHALATION Q6H PRN shortness of breath or wheezing Dextrose 12.5 gm 04/05/25 00:06 Dextrose 50% 25 Gm/50 Ml Syringe IV PUSH PRN PRN Hypoglycemia Protocol Diphenhydramine HCl 25 mg 04/04/25 23:47 04/05/25 03:54 Diphenhydramine Hcl Inj 50 Mg/Ml Vial IV PUSH 25 mg Q4H PRN Administration Itching Famotidine 20 mg 04/05/25 09:00 Famotidine 20 Mg/2 Ml Vial IV PUSH Q12HR PAULA Glucagon 1 mg 04/05/25 00:06 Glucagon For Inj 1 Mg Vial IM PRN PRN Hypoglycemia Protocol Glucose 15 gm 04/05/25 00:06 Glucose Oral Gel 15 Gm Of Glucse In 37.5 Gm Tube PO PRN PRN Hypoglycemia Protocol Hydralazine HCl 10 mg 04/04/25 23:49 Hydralazine Hcl 20 Mg/Ml Vial IV PUSH Q8H PRN Blood Pressure - High Hydromorphone HCl 0.5 mg 04/04/25 21:53 04/05/25 05:25 Hydromorphone Hcl Inj (*Crx) 1 Mg/Ml Syr IV PUSH 0.5 mg Q4H PRN Administration Pain Rated 7-10 Hydroxyzine HCl 25 mg 04/05/25 00:04 Hydroxyzine Hcl 50 Mg/Ml Vial IM Q4H PRN Itching Sodium Chloride 1,000 mls @ 150 mls/hr 04/04/25 21:55 04/04/25 23:45 Normal Saline Iv IV CONT 150 mls/hr .Q6H40M PAULA Administration Ceftriaxone Sodium 1 gm/ 50 mls @ 100 mls/hr 04/04/25 22:00 04/04/25 22:41 Sodium Chloride IVPB Infused Q24H PAULA Infusion Metronidazole 500 mg in 100 mls @ 100 mls/hr 04/04/25 22:00 04/05/25 05:31 Flagyl 500 Mg/Iso Soln 100 Ml IVPB 100 mls/hr Q8H PAULA Administration Dextrose 1,000 mls @ 100 mls/hr 04/05/25 00:06 Dextrose 5% 1,000 Ml IVPB PRN PRN Hypoglycemia Protocol Insulin Aspart 2 - 5 units 04/05/25 06:00 04/05/25 06:38 Insulin Aspart (*Bkc) 100 Units/Ml SUB-Q Not Given Q6HR [facility] Protocol Ketorolac Tromethamine 15 mg 04/04/25 23:47 04/05/25 03:53 Ketorolac 15 Mg/Ml Vial (*Bkc) IV PUSH 15 mg Q6H PRN Administration Pain Rated 4-6 Ondansetron HCl 4 mg 04/04/25 21:53 04/05/25 05:25 Ondansetron Inj 4 Mg/2 Ml Vial IV PUSH 4 mg Q4H PRN Administration Nausea Prednisone 20 mg 04/05/25 08:00 Prednisone 20 Mg Tablet PO DAILY@0800 [facility] Radiology Results: ITS Impressions Abdomen/Pelvis CT 04/04/25 20:46 IMPRESSION: 1. Enterocolitis persists, not significantly changed from 1 month prior. 2. No complicating features. Labs Labs: Laboratory Results - last 24 hr 04/04/25 04/04/25 04/04/25 04:36 14:14 14:36 WBC 19.3 H RBC 5.30 Hgb 12.8 Hct 40.8 MCV 77.0 L MCH 24.2 L MCHC 31.4 L RDW 18.6 H Plt Count 422 H MPV 9.1 Immature Gran % (Auto) 0.5 Neut % (Auto) 79.5 H Lymph % (Auto) 13.6 L [place] % (Auto) 5.5 Eos % (Auto) 0.5 Baso % (Auto) 0.4 Lymph # (Auto) 2.61 [place] # (Auto) 1.1 H Eos # (Auto) 0.1 Baso # (Auto) 0.1 Abs Immat Gran (auto) 0.09 H Absolute Neuts (auto) 15.3 H Absolute Nucleated RBC 0.000 Nucleated RBC % 0.0 Sodium 137 Potassium 3.9 Chloride 108 H Carbon Dioxide 18 L Anion Gap 11 BUN 15 Creatinine 0.94 Estim Creat Clear Calc 86 Estimated GFR > 60 Glucose 191 H POC Capillary Glucose 167 H Calcium 9.8 Total Bilirubin 0.5 AST 26 ALT 21 Alkaline Phosphatase 88 Total Protein 8.8 H Albumin 4.7 Lipase 63 Beta HCG, Quant < 2.39 Urine Color Urine Appearance Urine pH Ur Specific [place] Urine Protein Urine Glucose (UA) Urine Ketones Ur Blood (Man) Urine Nitrate Urine Bilirubin Urine Urobilinogen Add Ur Microanalysis Leukocyte Esterase Rfl Urine RBC Urine WBC Ur Squamous Epith Cells Urine Bacteria Urine Casts Hyaline Casts Urine Mucus Urine Yeast (Budding) 04/04/25 04/05/25 04/05/25 17:36 00:43 05:52 WBC RBC Hgb Hct MCV MCH MCHC RDW Plt Count MPV Immature Gran % (Auto) Neut % (Auto) Lymph % (Auto) [place] % (Auto) Eos % (Auto) Baso % (Auto) Lymph # (Auto) [place] # (Auto) Eos # (Auto) Baso # (Auto) Abs Immat Gran (auto) Absolute Neuts (auto) Absolute Nucleated RBC Nucleated RBC % Sodium Potassium Chloride Carbon Dioxide Anion Gap BUN Creatinine Estim Creat Clear Calc Estimated GFR Glucose POC Capillary Glucose 108 H 104 Calcium Total Bilirubin AST ALT Alkaline Phosphatase Total Protein Albumin Lipase Beta HCG, Quant Urine Color Yellow Urine Appearance Turbid H Urine pH 5.0 Ur Specific [place] 1.020 Urine Protein Trace Urine Glucose (UA) Negative Urine Ketones Negative Ur Blood (Man) Negative Urine Nitrate Negative Urine Bilirubin Negative Urine Urobilinogen 0.2 Add Ur Microanalysis Reviewed Leukocyte Esterase Rfl Negative Urine RBC 6-10 H Urine WBC 0-5 Ur Squamous Epith Cells Moderate Urine Bacteria 2+ H Urine Casts 3-5 Hyaline Casts Present Urine Mucus Present Urine Yeast (Budding) Present H
[2025-04-05] MEDS: FAMOTIDINE 20 MG/2 ML VIAL IV PUSH ×2 (09:41→22:00)
[2025-04-05] MEDS: SODIUM CHLORIDE 0.9% IV 1,000 ML 150 ML IV CONT ×2 (12:45→22:12)
--- NOTE | 2025-04-05 14:02 | P.CONGI_ITS ---
Assessment and Plan Assessment and plan (1) Crohn's disease of small intestine with complication: Code(s): K50.019 - Crohn's disease of small intestine with unspecified complications Status: Acute Assessment and Plan: failed humira and stelara plan is hopefully start IL23, she already has appointment to see us in office iv steroids for now, on abx for possible enteritis leukocytosis could be from steroid use and also reactive will follow advance diet when less nauseous (2) Abdominal pain: Qualifiers: Abdominal location: generalized Qualified Code(s): R10.84 - Generalized abdominal pain Code(s): R10.9 - Unspecified abdominal pain Status: Acute (3) Enteritis: Code(s): K52.9 - Noninfective gastroenteritis and colitis, unspecified Status: Acute (4) Leukocytosis: Code(s): D72.829 - Elevated white blood cell count, unspecified Status: Acute GI Consult Note Consult date/time: 04/05/25 14:02 Reason for consult: crohn's HPI: Roma Clayton is a 45 year old female with past medical surgical history of Crohn's disease, small bowel obstruction, GERD, HTN, anxiety, obesity, cholecystectomy, and hernia repair. She is back again with similar complaints of nausea, vomiting and abdominal pain, she is known to our service from recent hospitalization. Patient with a Hx of exploratory bowel surgery around 12 years ago in [facility] at which time she was advised she had small bowel adhesions/strictures but no bowel resection was performed. Following her surgery she went approximately 4 years before she was diagnosed with Crohn's disease. Crohn's diagnosis was based on the current small bowel obstructions and elevated fecal calprotectin. She was diagnosed with Crohn's approximately 7-8 years ago she had been on Humira for approximately 3 years and had been doing well before she lost response and it was discontinued then switched to stelara that she took for 3 months but did not work and then she could not get from insurance anymore. She had multiple hospitalization and had EGD and colonoscopy few months ago at [facility] which per patient was unremarkable. Here again with nausea, abdominal pain. CT scan similar to previous one 1 month ago- Enterocolitis persists, No complicating features. Noted leukocytosis, normal lipase. Review of Systems 2 Constitutional: Constitutional: Denies chills Eyes: Eyes: Denies blurry vision ENT: Reports Normal hearing present Cardiovascular: Cardiovascular: Denies chest pain Respiratory: Respiratory: Denies cough Gastrointestinal: Gastrointestinal: Reports abdominal pain and Reports nausea Genitourinary: Genitourinary: Denies dysuria Musculoskeletal: Musculoskeletal: Denies neck pain Integumentary/Breasts: Skin/Breast: Denies rash Neurologic: Denies Abnormal speech present Psychiatric: Psychiatric: Reports anxiety [facility] Past Medical History Medical History (Updated 04/05/25 @ 14:08 by Car Ruiz MD) Leukocytosis Iron deficiency anemia Anemia of chronic disease Hyperglycemia Asthma Anxiety Port-A-Cath in place History of right sided Port-A-Cath with subsequent removal placed 2011 removed proximally 2017. Placed due to poor vascular access. Crohn's disease of small intestine with complication Hypertension History of small bowel obstruction Has been treated conservatively and also required surgical intervention x 2 with adhesiolysis. Tobacco abuse Menorrhagia Hepatic steatosis Nephrolithiasis Morbid obesity 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 GERD with esophagitis Anemia Abdominal wall cellulitis Surgical History Surgical History (Updated 04/04/25 @ 23:43 by Naina Clayton APRN) History of esophagogastroduodenoscopy (EGD) History of colonoscopy Status post laparoscopic hernia repair laparoscopic ventral hernia repair with mesh History of exploratory laparotomy Has had what sounds like an exploratory laparotomy with adhesiolysis x 2 in [facility]. History of tonsillectomy History of appendectomy Appendix removed during 2nd exploratory laparotomy. History of cholecystectomy Laparoscopic Family History Family History Father Diabetes mellitus Mother Hypertension Sibling No problems noted. Other Crohn's colitis Social History Social History (Updated 04/04/25 @ 23:45 by Naina Clayton APRN) Social History: She works at [employer] and is to Dorota Surrogate decision maker: Dorota Clayton () Code status: Full code. Smoking packs per day: 0.25 Smoking cigarettes per day: 5.0 Years smoked: 16 Smoking pack-years: 4.00 Smoking status: Current every day smoker Tobacco type: cigarettes Second hand tobacco smoke exposure: No Alcohol intake: never Alcohol use details: 1-2 alcoholic beverages every 1-2 months. Substance use type: marijuana Other substance usage details: smokes marijauna every day Do You Feel Safe in your Home?: Yes Lack of Transportation: No Lack of Food: Never True Current Housing: I Have Housing Concerned About Future Housing: Decline to Answer Difficulty Paying Gas/Electric Bills: Decline to Answer Difficulty Paying for Meds: Decline to Answer Currently Unemployed: No Education: High School Diploma/GED Difficulty w/ Childcare or Family Care: No Living arrangements: with family Additional living arrangements comments: Lives in [place] with her . Recently moved to the area from [facility]. Occupation/Education: occupation Additional occupation/education comments: She works at [employer] Gender identity (if verbalized by the patient): Female Sexual Orientation (if Verbalized by the Patient): Lesbian, Lui, or Homosexual Spiritual care concerns: No Meds Home Medications and Allergies Home Medications ?Medication ?Instructions ?Recorded ?Confirmed ?Type amlodipine 10 mg tablet 10 mg PO DAILY 11/22/2303/17 History dicyclomine 20 mg tablet 20 mg PO QID PRN abdominal 0 11/06/24 04/04/25 Rx discomfort #20 tabs ondansetron 4 mg disintegrating 4 mg PO Q8H PRN nausea and 11/06/24 04/04/25 Rx tablet vomiting #10 tabs docusate sodium 100 mg capsule 100 mg PO DAILY #30 cap s 03/12/25 04/04/25 Rx (Colace) albuterol sulfate 0.63 mg/3 mL 0.63 mg inhalation Q6H PRN 04/04/25 04/04/25 History solution for nebulization shortness of breath or wheez ing clonazepam 0.5 mg tablet (Klonopin) 0.5 mg PO Q8H PRN anxiety 04/04/25 04/04/25 History prednisone 20 mg tablet 20 mg PO DAILY 04/04/2503/17 History Allergies Allergy/AdvReac Type Severity Reaction Status Date / Time Penicillins Allergy Unknown Rash Verified 04/04/25 23:17 morphine AdvReac Nausea and Verified 04/04/25 23:17 Vomiting Vital Signs Vital Signs - 24 hr 04/04/25 14:30 04/04/25 22:55 04/05/25 05:59 Temperature 98.0 F 98 F 97 F L Pulse Rate 70 71 68 Respiratory Rate 20 18 18 Blood Pressure 151/107 H 151/70 H 153/75 H Pulse Oximetry 95 98 99 Oxygen Delivery Room Air Exam 2 Const: General: comfortable and no acute distress Other: obese HENMT: Face/Nose/Sinus: Normal nares present Eyes: General: appearance normal, both eyes and all related structures Neck: Neck: supple Resp: Effort & Inspection: normal respiratory effort Cardio: Rate: regular rate GI: Inspection: distended GI Palp: Yes Tenderness to palpation present (GI) (no rebound) and No Guarding due to palpation present (GI) Skin: General skin exam: normal color Neuro: Speech: normal speech Motor exam (neuro): 5/5 motor strength present throughout Extrem: General: normal to inspection Psych: Mental Status: mental status grossly normal Results Labs 04/04/25 14:36 04/04/25 14:36 Labs: Short CBC 04/04/25 Range/Units 14:36 WBC 19.3 H (4.5-10.0) K/mm3 Hgb 12.8 (12.0-15.0) g/dL Hct 40.8 (37.0-47.0) % Plt Count 422 H (150-375) k/mm3 BMP 04/04/25 14:36 Sodium 137 Potassium 3.9 Chloride 108 H Carbon Dioxide 18 L BUN 15 Creatinine 0.94 Glucose 191 H Calcium 9.8 Liver Function 04/04/25 Range/Units 14:36 Total Bilirubin 0.5 (0.2-1.3) mg/dL AST 26 (14-36) U/L ALT 21 (6-35) U/L Alkaline Phosphatase 88 (38-126) U/L Albumin 4.7 (3.5-5.1) g/dL Urine 04/04/25 Range/Units 17:36 Urine Color Yellow (Yellow) Urine Appearance Turbid H (Clear) Urine pH 5.0 (5.0-9.0) Ur Specific [place] 1.020 (1.001-1.035) Urine Protein Trace (Negative) mg/dL Urine Glucose (UA) Negative (Negative) mg/dL
[2025-04-05 15:00] LABS: Hematocrit 37.0 % (37.0-47.0); Hemoglobin 11.1 g/dL (12.0-15.0); Immature Granulocyte Percent A 0.2 % (0-0.5); Lymphocytes Absolute Auto 0.55 K/mm3 (0.9-3.2); Mean Corpuscular HGB Conc 30.0 g/dl (32-36); Mean Corpuscular Hemoglobin 24.0 pg (26-34); Mean Corpuscular Volume 79.9 fl (80-100); Nucleated Red Blood Cells Absolute Auto 0.000 K/mm3 (0.0-0.012); Nucleated Red Blood Cells Perc 0.0 % (0.0-0.2); Platelet Count Result 297 k/mm3 (150-375); Red Blood Count 4.63 M/mm3 (4.2-5.4); White Blood Count 6.1 K/mm3 (4.5-10.0)
[2025-04-05 15:13] LABS: Alanine Aminotransferase 14 U/L (6-35); Albumin Level 3.7 g/dL (3.5-5.1); Alkaline Phosphatase 62 U/L (38-126); Anion Gap 7 mmol/L (4-12); Aspartate Amino Transferase 18 U/L (14-36); Bilirubin,Total 0.4 mg/dL (0.2-1.3); Blood Urea Nitrogen 15 mg/dL (7-17); Calcium 8.4 mg/dL (8.4-10.2); Carbon Dioxide 19 mmol/L (22-30); Chloride 111 mmol/L (98-107); Estimated CRCL calculation 101 ml/min; Estimated Glomerular Filt Rate > 60; Glucose 121 mg/dL (65-110); Potassium 4.3 mmol/L (3.4-5.0); Sodium 137 mmol/L (137-145); Total Protein 6.9 g/dL (6.3-8.2)
[2025-04-05 15:47] VITALS: BP 149/74; PULSE 63; RESP 18; TEMP 36.6; O2SAT 97
[2025-04-05 21:01] VITALS: BP 139/68; PULSE 50; RESP 18; TEMP 36.6; O2SAT 99
[2025-04-05] MEDS: cefTRIAXone 1 GM in SODIUM CHLORIDE 0.9% IV 50 ML 100 ML IVPB (22:08)
[2025-04-06] MEDS: ONDANSETRON INJ 4 MG/2 ML VIAL IV PUSH ×4 (00:27→21:05)
[2025-04-06] MEDS: HYDROmorphone HCL INJ (*CRX) 1 MG/ML SYR 0.5 MG IV PUSH ×4 (00:27→21:04)
[2025-04-06 05:23] VITALS: BP 151/93; PULSE 58; RESP 17; TEMP 36.7; O2SAT 100
[2025-04-06 05:24] LABS: Hematocrit 34.4 % (37.0-47.0); Hemoglobin 10.3 g/dL (12.0-15.0); Immature Granulocyte Percent A 0.4 % (0-0.5); Lymphocytes Absolute Auto 1.85 K/mm3 (0.9-3.2); Mean Corpuscular HGB Conc 29.9 g/dl (32-36); Mean Corpuscular Hemoglobin 24.1 pg (26-34); Mean Corpuscular Volume 80.4 fl (80-100); Nucleated Red Blood Cells Absolute Auto 0.000 K/mm3 (0.0-0.012); Nucleated Red Blood Cells Perc 0.0 % (0.0-0.2); Platelet Count Result 300 k/mm3 (150-375); Red Blood Count 4.28 M/mm3 (4.2-5.4); White Blood Count 5.7 K/mm3 (4.5-10.0)
[2025-04-06] MEDS: metroNIDAZOLE 500 MG/ISO 100ML 500 MG/100 ML BAG 100 MG IVPB ×3 (05:25→21:47)
[2025-04-06 05:50] LABS: Alanine Aminotransferase 13 U/L (6-35); Albumin Level 3.6 g/dL (3.5-5.1); Alkaline Phosphatase 55 U/L (38-126); Anion Gap 9 mmol/L (4-12); Aspartate Amino Transferase 19 U/L (14-36); Bilirubin,Total 0.2 mg/dL (0.2-1.3); Blood Urea Nitrogen 15 mg/dL (7-17); Calcium 8.3 mg/dL (8.4-10.2); Carbon Dioxide 20 mmol/L (22-30); Chloride 112 mmol/L (98-107); Estimated CRCL calculation 103 ml/min; Estimated Glomerular Filt Rate > 60; Glucose 76 mg/dL (65-110); Potassium 3.7 mmol/L (3.4-5.0); Sodium 141 mmol/L (137-145); Total Protein 6.6 g/dL (6.3-8.2)
[2025-04-06 06:12] LABS: Anisocytosis 1+; Hypochromasia Occasional; Schistocytes None Seen
--- NOTE | 2025-04-06 07:19 | P.PNIM_ITS ---
Progress Note: A&P Assessment and Plan (1) Acute Crohn's disease with intestinal obstruction: Code(s): K50.912 - Crohn's disease, unspecified, with intestinal obstruction Status: Acute Assessment and Plan: -the patient was discharged from here on 03/12/2025 and had been evaluated by GI. The patient's status improved at that time. She was placed on prednisone and Levaquin. She is still on a steroid taper. The patient stated that she is in the middle of biologics. It was noted that the patient is no longer a candidate for Stelara. It was noted that the patient will be switched to guselkumab. -may need to consider Levsin. Typically she would take Bentyl at home but she is NPO at this time. -the patient stated she has been on mesalamine in the past and it did not help her. -she has leukocytosis which could be related to the steroid use our could be reactive, has now resolved -continue IV steroids -NPO, IV fluids -GI following (2) Partial small bowel obstruction: Code(s): K56.600 - Partial intestinal obstruction, unspecified as to cause Status: Acute Assessment and Plan: -the patient is NPO at this time. GI has been consulted. -Abdomen/Pelvis CT 04/04/25 20:46 IMPRESSION: 1. Enterocolitis persists, not significantly changed from 1 month prior. 2. No complicating features -GI consult was greatly be appreciated. -the patient was started on Rocephin and Flagyl. The patient has completed a dose of Levaquin outpatient. -previous cultures were negative. -continue with pain management -NPO, diet per GI recommendations (3) Anxiety: Code(s): F41.9 - Anxiety disorder, unspecified Status: Chronic Assessment and Plan: -she is on Klonopin at home but is currently NPO. She was given diazepam in the emergency room. -p.r.n. hydroxyzine IV. However use this cautiously as she is already on Benadryl p.r.n. -restart home clonazepam as patient is very anxious and crying (4) Hypertension: Code(s): I10 - Essential (primary) hypertension Status: Chronic Assessment and Plan: -p.r.n. Hydralazine with parameters. Patient is NPO so her amlodipine is on hold at this time. (5) Hyperglycemia: Code(s): R73.9 - Hyperglycemia, unspecified Status: Acute Assessment and Plan: -the patient had a A1c of 5.2 on 03/12/2025. However she has been on prednisone and her glucose was 191 on her chemistry today. -will start sliding scale insulin. (6) GERD (gastroesophageal reflux disease): Code(s): K21.9 - Gastro-esophageal reflux disease without esophagitis Status: Chronic Assessment and Plan: -IV famotidine Subjective Date/time seen: 04/06/25 07:19 Interval history: Patient lying in bed, crying, upset because she is anxious and is having pain. Patient was asking to leave AMA as she lost IV access and did not want to just be sitting here without care. Patient then admitted she was in too much pain to leave and was feeling anxious due to being in a room without windows and her ho me medication being on hold. Plan discussed with patient and she is now agreeable to stay. Patient will have midline placed for IV access. Patient's home clonazepam restarted and a one time dose of IM hydromorphone was ordered. Patient continues to be NPO. Patient continues on IV steroids. GI following. Review of Systems Review of Systems: All systems reviewed & are unremarkable except as noted in HPI and below Exam Const: General: in distress Other: crying, anxious HENMT: Mouth: Yes moist mucous membranes Eyes: General: appearance normal, both eyes and all related structures Sclera: sclerae normal Neck: Neck: supple Resp: Effort & Inspection: normal respiratory effort Auscultation: clear to auscultation bilaterally Cardio: Rate: regular rate Rhythm: regular rhythm GI: Auscultation: normal bowel sounds Skin: General skin exam: normal color and no rashes or lesions noted Neuro: Speech: normal speech Motor exam (neuro): 5/5 motor strength present throughout Sensory Exam: normal sensation Extrem: General: normal to inspection Psych: Mental Status: mental status grossly normal Objective Data Vital Signs Vital Signs: Vital Signs - 24 hr 04/05/25 08:00 04/05/25 15:47 04/05/25 20:00 Temperature 97.9 F Pulse Rate 63 Respiratory Rate 18 Blood Pressure 149/74 H Pulse Oximetry 97 Oxygen Delivery Room Air Room Air 04/05/25 21:01 04/06/25 05:23 Temperature 97.9 F 98.0 F Pulse Rate 50 L 58 L Respiratory Rate 18 17 Blood Pressure 139/68 151/93 H Pulse Oximetry 99 100 Oxygen Delivery Intake/Output Intake/Output: Intake & Output 04/03/25 04/04/25 04/05/25 04/06/25 23:59 23:59 23:59 23:59 Intake Total 1050 2400 0 Balance 1050 2400 0 Meds/Results Medications: Active Medications Generic Name Dose Route Start Last Admin Trade Name Freq PRN Reason Stop Dose Admin Albuterol 2.5 mg 04/05/25 00:20 Albuterol Sulfate Neb 2.5 Mg/3 Ml Inh INHALATION Q6H PRN shortness of breath or wheezing Dextrose 12.5 gm 04/05/25 00:06 Dextrose 50% 25 Gm/50 Ml Syringe IV PUSH PRN PRN Hypoglycemia Protocol Diphenhydramine HCl 25 mg 04/04/25 23:47 04/05/25 21:59 Diphenhydramine Hcl Inj 50 Mg/Ml Vial IV PUSH 25 mg Q4H PRN Administration Itching Famotidine 20 mg 04/05/25 09:00 04/05/25 22:00 Famotidine 20 Mg/2 Ml Vial IV PUSH 20 mg Q12HR PAULA Administration Glucagon 1 mg 04/05/25 00:06 Glucagon For Inj 1 Mg Vial IM PRN PRN Hypoglycemia Protocol Glucose 15 gm 04/05/25 00:06 Glucose Oral Gel 15 Gm Of Glucse In 37.5 Gm Tube PO PRN PRN Hypoglycemia Protocol Hydralazine HCl 10 mg 04/04/25 23:49 Hydralazine Hcl 20 Mg/Ml Vial IV PUSH Q8H PRN Blood Pressure - High Hydromorphone HCl 0.5 mg 04/04/25 21:53 04/06/25 05:20 Hydromorphone Hcl Inj (*Crx) 1 Mg/Ml Syr IV PUSH 0.5 mg Q4H PRN Administration Pain Rated 7-10 Hydroxyzine HCl 25 mg 04/05/25 00:04 Hydroxyzine Hcl 50 Mg/Ml Vial IM Q4H PRN Itching Sodium Chloride 1,000 mls @ 150 mls/hr 04/04/25 21:55 04/06/25 00:07 Normal Saline Iv IV CONT Not Given .Q6H40M PAULA Ceftriaxone Sodium 1 gm/ 50 mls @ 100 mls/hr 04/04/25 22:00 04/05/25 22:08 Sodium Chloride IVPB 100 mls/hr Q24H PAULA Administration Metronidazole 500 mg in 100 mls @ 100 mls/hr 04/04/25 22:00 04/06/25 05:25 Flagyl 500 Mg/Iso Soln 100 Ml IVPB 100 mls/hr Q8H PAULA Administration Dextrose 1,000 mls @ 100 mls/hr 04/05/25 00:06 Dextrose 5% 1,000 Ml IVPB PRN PRN Hypoglycemia Protocol Insulin Aspart 2 - 5 units 04/05/25 06:00 04/06/25 06:47 Insulin Aspart (*Bkc) 100 Units/Ml SUB-Q Not Given Q6HR [facility] Protocol Ketorolac Tromethamine 15 mg 04/04/25 23:47 04/05/25 21:58 Ketorolac 15 Mg/Ml Vial (*Bkc) IV PUSH 15 mg Q6H PRN Administration Pain Rated 4-6 Methylprednisolone Sodium Succinate 40 mg 04/06/25 09:00 Methylprednisolone Sod Succ 125 Mg Vial IV PUSH DAILY PAULA Ondansetron HCl 4 mg 04/04/25 21:53 04/06/25 05:20 Ondansetron Inj 4 Mg/2 Ml Vial IV PUSH 4 mg Q4H PRN Administration Nausea Radiology Results: ITS Impressions Abdomen/Pelvis CT 04/04/25 20:46 IMPRESSION: 1. Enterocolitis persists, not significantly changed from 1 month prior. 2. No complicating features. Labs Labs: Laboratory Results - last 24 hr 04/05/25 04/05/25 04/05/25 11:34 14:54 18:21 WBC 6.1 RBC 4.63 Hgb 11.1 L Hct 37.0 MCV 79.9 L MCH 24.0 L MCHC 30.0 L RDW 18.5 H Plt Count 297 MPV 9.5 Immature Gran % (Auto) 0.2 Neut % (Auto) 88.6 H Lymph % (Auto) 9.1 L [place] % (Auto) 1.8 L Eos % (Auto) 0.3 Baso % (Auto) 0.0 L Lymph # (Auto) 0.55 L [place] # (Auto) 0.1 Eos # (Auto) 0.0 Baso # (Auto) 0.0 Abs Immat Gran (auto) 0.01 Absolute Neuts (auto) 5.4 Absolute Nucleated RBC 0.000 Band Neutrophils % Nucleated RBC % 0.0 Platelet Estimate Hypochromasia Anisocytosis Schistocytes Sodium 137 Potassium 4.3 Chloride 111 H Carbon Dioxide 19 L Anion Gap 7 BUN 15 Creatinine 0.79 Estim Creat Clear Calc 101 Estimated GFR > 60 Glucose 121 H POC Capillary Glucose 105 119 H Calcium 8.4 Total Bilirubin 0.4 AST 18 ALT 14 Alkaline Phosphatase 62 Total Protein 6.9 Albumin 3.7 04/05/25 04/06/25 04/06/25 23:31 04:29 06:38 WBC 5.7 RBC 4.28 Hgb 10.3 L Hct 34.4 L MCV 80.4 MCH 24.1 L MCHC 29.9 L RDW 18.1 H Plt Count 300 MPV 9.2 Immature Gran % (Auto) 0.4 Neut % (Auto) 59.7 Lymph % (Auto) 32.5 [place] % (Auto) 6.5 Eos % (Auto) 0.7 Baso % (Auto) 0.2 Lymph # (Auto) 1.85 [place] # (Auto) 0.4 Eos # (Auto) 0.0 Baso # (Auto) 0.0 Abs Immat Gran (auto) 0.02 Absolute Neuts (auto) 3.4 Absolute Nucleated RBC 0.000 Band Neutrophils % Not Reportable Nucleated RBC % 0.0 Platelet Estimate Adequate Hypochromasia Occasional Anisocytosis 1+ Schistocytes None seen Sodium 141 Potassium 3.7 Chloride 112 H Carbon Dioxide 20 L Anion Gap 9 BUN 15 Creatinine 0.78 Estim Creat Clear Calc 103 Estimated GFR > 60 Glucose 76 POC Capillary Glucose 94 81 Calcium 8.3 L Total Bilirubin 0.2 AST 19 ALT 13 Alkaline Phosphatase 55 Total Protein 6.6 Albumin 3.6
[2025-04-06] MEDS: FAMOTIDINE 20 MG/2 ML VIAL IV PUSH ×2 (09:34→21:05)
[2025-04-06] MEDS: KETOROLAC 15 MG/ML VIAL (*BKC) IV PUSH (09:37)
[2025-04-06] MEDS: clonazePAM (*CRX) 0.5 MG TABLET PO ×2 (13:13→21:10)
[2025-04-06] MEDS: HYDROmorphone HCL INJ (*CRX) 1 MG/ML SYR 0.5 MG IM (13:14)
--- NOTE | 2025-04-06 14:45 | WPDGIPROGNO ---
Progress Note: A&P Assessment and Plan (1) Crohn's disease of small intestine with complication: Code(s): K50.019 - Crohn's disease of small intestine with unspecified complications Status: Acute Assessment and Plan: clinically better iv steroids will start diet, hopefully home tomorrow and then should be able to transition to oral steroid she already has follow-up office in few weeks, then will discuss another biologic- IL23 TB and HBV status negative. (2) Abdominal pain: Qualifiers: Abdominal location: generalized Qualified Code(s): R10.84 - Generalized abdominal pain Code(s): R10.9 - Unspecified abdominal pain Status: Acute Assessment and Plan: better (3) Nausea and vomiting: Qualifiers: Vomiting type: unspecified Qualified Code(s): R11.2 - Nausea with vomiting, unspecified Code(s): R11.2 - Nausea with vomiting, unspecified Status: Acute (4) Enteritis: Code(s): K52.9 - Noninfective gastroenteritis and colitis, unspecified Status: Acute Assessment and Plan: on abx (5) Leukocytosis: Code(s): D72.829 - Elevated white blood cell count, unspecified Status: Acute Assessment and Plan: wbc normal now Subjective Date/time seen: 04/06/25 14:45 Interval history: better, passing gas Review of Systems Review of Systems: All systems reviewed & are unremarkable except as noted in HPI and below Exam Const: General: comfortable and no acute distress Other: obese HENMT: Face/Nose/Sinus: Normal nares present Eyes: General: appearance normal, both eyes and all related structures Neck: Neck: supple Resp: Effort & Inspection: normal respiratory effort Cardio: Rate: regular rate GI: Inspection: distended GI Palp: Yes Tenderness to palpation present (GI) (no rebound- pain has improved) and No Guarding due to palpation present (GI) Skin: General skin exam: normal color Neuro: Speech: normal speech Motor exam (neuro): 5/5 motor strength present throughout Extrem: General: normal to inspection Psych: Mental Status: mental status grossly normal Objective Data Vital Signs Vital Signs: Vital Signs - 24 hr 04/05/25 15:47 04/05/25 20:00 04/05/25 21:01 Temperature 97.9 F 97.9 F Pulse Rate 63 50 L Respiratory Rate 18 18 Blood Pressure 149/74 H 139/68 Pulse Oximetry 97 99 Oxygen Delivery Room Air 04/06/25 05:23 04/06/25 08:00 Temperature 98.0 F Pulse Rate 58 L Respiratory Rate 17 Blood Pressure 151/93 H Pulse Oximetry 100 Oxygen Delivery Room Air Intake/Output Intake/Output: Intake & Output 04/03/25 04/04/25 04/05/25 04/06/25 23:59 23:59 23:59 23:59 Intake Total 1050 2400 0 Balance 1050 2400 0 Meds/Results Medications: Active Medications Generic Name Dose Route Start Last Admin Trade Name Freq PRN Reason Stop Dose Admin Albuterol 2.5 mg 04/05/25 00:20 Albuterol Sulfate Neb 2.5 Mg/3 Ml Inh INHALATION Q6H PRN shortness of breath or wheezing Clonazepam 0.5 mg 04/06/25 12:36 04/06/25 13:13 Clonazepam (*Crx) 0.5 Mg Tablet PO 0.5 mg Q8H PRN Administration Anxiety Dextrose 12.5 gm 04/05/25 00:06 Dextrose 50% 25 Gm/50 Ml Syringe IV PUSH PRN PRN Hypoglycemia Protocol Diphenhydramine HCl 25 mg 04/04/25 23:47 04/06/25 09:37 Diphenhydramine Hcl Inj 50 Mg/Ml Vial IV PUSH 25 mg Q4H PRN Administration Itching Famotidine 20 mg 04/05/25 09:00 04/06/25 09:34 Famotidine 20 Mg/2 Ml Vial IV PUSH 20 mg Q12HR PAULA Administration Glucagon 1 mg 04/05/25 00:06 Glucagon For Inj 1 Mg Vial IM PRN PRN Hypoglycemia Protocol Glucose 15 gm 04/05/25 00:06 Glucose Oral Gel 15 Gm Of Glucse In 37.5 Gm Tube PO PRN PRN Hypoglycemia Protocol Hydralazine HCl 10 mg 04/04/25 23:49 Hydralazine Hcl 20 Mg/Ml Vial IV PUSH Q8H PRN Blood Pressure - High Hydromorphone HCl 0.5 mg 04/04/25 21:53 04/06/25 05:20 Hydromorphone Hcl Inj (*Crx) 1 Mg/Ml Syr IV PUSH 0.5 mg Q4H PRN Administration Pain Rated 7-10 Hydroxyzine HCl 25 mg 04/05/25 00:04 Hydroxyzine Hcl 50 Mg/Ml Vial IM Q4H PRN Itching Sodium Chloride 1,000 mls @ 150 mls/hr 04/04/25 21:55 04/06/25 00:07 Normal Saline Iv IV CONT Not Given .Q6H40M PAULA Ceftriaxone Sodium 1 gm/ 50 mls @ 100 mls/hr 04/04/25 22:00 04/05/25 22:08 Sodium Chloride IVPB 100 mls/hr Q24H PAULA Administration Metronidazole 500 mg in 100 mls @ 100 mls/hr 04/04/25 22:00 04/06/25 05:25 Flagyl 500 Mg/Iso Soln 100 Ml IVPB 100 mls/hr Q8H PAULA Administration Dextrose 1,000 mls @ 100 mls/hr 04/05/25 00:06 Dextrose 5% 1,000 Ml IVPB PRN PRN Hypoglycemia Protocol Insulin Aspart 2 - 5 units 04/05/25 06:00 04/06/25 13:05 Insulin Aspart (*Bkc) 100 Units/Ml SUB-Q Not Given Q6HR COUNT [facility]CLUDES [facility] Protocol Ketorolac Tromethamine 15 mg 04/04/25 23:47 04/06/25 09:37 Ketorolac 15 Mg/Ml Vial (*Bkc) IV PUSH 15 mg Q6H PRN Administration Pain Rated 4-6 Methylprednisolone Sodium Succinate 40 mg 04/06/25 09:00 04/06/25 09:34 Methylprednisolone Sod Succ 125 Mg Vial IV PUSH 40 mg DAILY PAULA Administration Ondansetron HCl 4 mg 04/04/25 21:53 04/06/25 05:20 Ondansetron Inj 4 Mg/2 Ml Vial IV PUSH 4 mg Q4H PRN Administration Nausea Radiology Results: ITS Impressions Abdomen/Pelvis CT 04/04/25 20:46 IMPRESSION: 1. Enterocolitis persists, not significantly changed from 1 month prior. 2. No complicating features. Labs Labs: Laboratory Results - last 24 hr 04/05/25 04/05/25 04/05/25 14:54 18:21 23:31 WBC 6.1 RBC 4.63 Hgb 11.1 L Hct 37.0 MCV 79.9 L MCH 24.0 L MCHC 30.0 L RDW 18.5 H Plt Count 297 MPV 9.5 Immature Gran % (Auto) 0.2 Neut % (Auto) 88.6 H Lymph % (Auto) 9.1 L [place] % (Auto) 1.8 L Eos % (Auto) 0.3 Baso % (Auto) 0.0 L Lymph # (Auto) 0.55 L [place] # (Auto) 0.1 Eos # (Auto) 0.0 Baso # (Auto) 0.0 Abs Immat Gran (auto) 0.01 Absolute Neuts (auto) 5.4 Absolute Nucleated RBC 0.000 Band Neutrophils % Nucleated RBC % 0.0 Platelet Estimate Hypochromasia Anisocytosis Schistocytes Sodium 137 Potassium 4.3 Chloride 111 H Carbon Dioxide 19 L Anion Gap 7 BUN 15 Creatinine 0.79 Estim Creat Clear Calc 101 Estimated GFR > 60 Glucose 121 H POC Capillary Glucose 119 H 94 Calcium 8.4 Total Bilirubin 0.4 AST 18 ALT 14 Alkaline Phosphatase 62 Total Protein 6.9 Albumin 3.7 04/06/25 04/06/25 04/06/25 04:29 06:38 12:31 WBC 5.7 RBC 4.28 Hgb 10.3 L Hct 34.4 L MCV 80.4 MCH 24.1 L MCHC 29.9 L RDW 18.1 H Plt Count 300 MPV 9.2 Immature Gran % (Auto) 0.4 Neut % (Auto) 59.7 Lymph % (Auto) 32.5 [place] % (Auto) 6.5 Eos % (Auto) 0.7 Baso % (Auto) 0.2 Lymph # (Auto) 1.85 [place] # (Auto) 0.4 Eos # (Auto) 0.0 Baso # (Auto) 0.0 Abs Immat Gran (auto) 0.02 Absolute Neuts (auto) 3.4 Absolute Nucleated RBC 0.000 Band Neutrophils % Not Reportable Nucleated RBC % 0.0 Platelet Estimate Adequate Hypochromasia Occasional Anisocytosis 1+ Schistocytes None seen Sodium 141 Potassium 3.7 Chloride 112 H Carbon Dioxide 20 L Anion Gap 9 BUN 15 Creatinine 0.78 Estim Creat Clear Calc 103 Estimated GFR > 60 Glucose 76 POC Capillary Glucose 81 101 Calcium 8.3 L Total Bilirubin 0.2 AST 19 ALT 13 Alkaline Phosphatase 55 Total Protein 6.6 Albumin 3.6
[2025-04-06 15:52] VITALS: BP 133/73; PULSE 62; RESP 18; TEMP 36.7; O2SAT 99
[2025-04-06] MEDS: SODIUM CHLORIDE 0.9% IV 1,000 ML 150 ML IV CONT ×2 (16:16→16:33)
[2025-04-06] MEDS: LIDOCAINE 1% LOCAL INJ 2 ML AMPUL 5 ML INFILTRATE (16:17)
[2025-04-06 20:47] VITALS: BP 165/70; PULSE 60; RESP 16; TEMP 36.8; O2SAT 99
[2025-04-06] MEDS: cefTRIAXone 1 GM in SODIUM CHLORIDE 0.9% IV 50 ML 100 ML IVPB (21:10)
[2025-04-07] MEDS: SODIUM CHLORIDE 0.9% IV 1,000 ML 150 ML IV CONT ×2 (01:33→13:49)
[2025-04-07] MEDS: HYDROmorphone HCL INJ (*CRX) 1 MG/ML SYR 0.5 MG IV PUSH (03:50)
[2025-04-07 05:06] LABS: Hematocrit 33.3 % (37.0-47.0); Hemoglobin 10.1 g/dL (12.0-15.0); Immature Granulocyte Percent A 0.4 % (0-0.5); Lymphocytes Absolute Auto 1.31 K/mm3 (0.9-3.2); Mean Corpuscular HGB Conc 30.3 g/dl (32-36); Mean Corpuscular Hemoglobin 23.9 pg (26-34); Mean Corpuscular Volume 78.7 fl (80-100); Nucleated Red Blood Cells Absolute Auto 0.000 K/mm3 (0.0-0.012); Nucleated Red Blood Cells Perc 0.0 % (0.0-0.2); Platelet Count Result 310 k/mm3 (150-375); Red Blood Count 4.23 M/mm3 (4.2-5.4); White Blood Count 7.0 K/mm3 (4.5-10.0)
[2025-04-07 05:31] LABS: Alanine Aminotransferase 17 U/L (6-35); Albumin Level 3.6 g/dL (3.5-5.1); Alkaline Phosphatase 63 U/L (38-126); Anion Gap 8 mmol/L (4-12); Aspartate Amino Transferase 22 U/L (14-36); Bilirubin,Total 0.2 mg/dL (0.2-1.3); Blood Urea Nitrogen 17 mg/dL (7-17); Calcium 8.4 mg/dL (8.4-10.2); Carbon Dioxide 21 mmol/L (22-30); Chloride 110 mmol/L (98-107); Estimated CRCL calculation 115 ml/min; Estimated Glomerular Filt Rate > 60; Glucose 93 mg/dL (65-110); Potassium 3.8 mmol/L (3.4-5.0); Sodium 139 mmol/L (137-145); Total Protein 6.6 g/dL (6.3-8.2)
[2025-04-07 05:52] VITALS: BP 136/83; PULSE 61; RESP 16; TEMP 36.2; O2SAT 100
[2025-04-07] MEDS: metroNIDAZOLE 500 MG/ISO 100ML 500 MG/100 ML BAG 100 MG IVPB ×2 (05:59→14:03)
[2025-04-07] MEDS: FAMOTIDINE 20 MG/2 ML VIAL IV PUSH (08:40)
[2025-04-07] MEDS: clonazePAM (*CRX) 0.5 MG TABLET PO (08:40)
[2025-04-07] MEDS: DOCUSATE SODIUM 100 MG CAPSULE PO (08:51)
[2025-04-07] MEDS: HYDROcodone/acetaminophen (*CRX) 5-325 MG TABLET 1 TAB PO (13:49)
--- NOTE | 2025-04-07 14:44 | P.DS_ITS ---
DS: Admitting Diagnosis Discharge Date 04/07/2025 Admitting Diagnosis Crohn's disease, partial small bowel obstruction DS: Discharge Diagnosis Discharge Diagnosis (1) Acute Crohn's disease with intestinal obstruction: Code(s): K50.912 - Crohn's disease, unspecified, with intestinal obstruction Status: Acute Assessment and Plan: -the patient was discharged from here on 03/12/2025 and had been evaluated by GI. The patient's status improved at that time. She was placed on prednisone and Levaquin. She is still on a steroid taper. The patient stated that she is in the middle of biologics. It was noted that the patient is no longer a candidate for Stelara. It was noted that the patient will be switched to guselkumab. -may need to consider Levsin. Typically she would take Bentyl at home but she is NPO at this time. -the patient stated she has been on mesalamine in the past and it did not help her. -she has leukocytosis which could be related to the steroid use our could be reactive, has now resolved -continue IV steroids, switch to PO on discharge, taper dose -GI following -tolerating low fiber diet (2) Partial small bowel obstruction: Code(s): K56.600 - Partial intestinal obstruction, unspecified as to cause Status: Acute Assessment and Plan: -Abdomen/Pelvis CT 04/04/25 20:46 IMPRESSION: 1. Enterocolitis persists, not significantly changed from 1 month prior. 2. No complicating features -GI consult was greatly be appreciated. -the patient was started on Rocephin and Flagyl. The patient has completed a dose of Levaquin outpatient. -previous cultures were negative. -continue with pain management -tolerating low fiber diet (3) Anxiety: Code(s): F41.9 - Anxiety disorder, unspecified Status: Chronic Assessment and Plan: -home clonazepam restarted (4) Hypertension: Qualifiers: Hypertension type: primary hypertension Qualified Code(s): I10 - Essential (primary) hypertension Code(s): I10 - Essential (primary) hypertension Status: Chronic Assessment and Plan: -p.r.n. Hydralazine with parameters. -restart home amlodipine (5) Hyperglycemia: Code(s): R73.9 - Hyperglycemia, unspecified Status: Acute Assessment and Plan: -the patient had a A1c of 5.2 on 03/12/2025 -sliding scale insulin. (6) GERD (gastroesophageal reflux disease): Code(s): K21.9 - Gastro-esophageal reflux disease without esophagitis Status: Chronic Assessment and Plan: -IV famotidine DS: Summary Hospital Course Reason for hospitalization: abdominal pain, nausea, vomiting, diarrhea Hospital Course: Patient is a 45 year old female with PMH of Crohn's disease, HERNANDEZ, asthma, anxiety, HTN and GERD. Patient presented to the ER with complaints of abdominal pain, nausea, vomiting and diarrhea. Patients wbc count is 26.[address] abdomen and pelvis showed persistent enterocolitis not significantly changed or worsened from roughly 2 weeks prior with no complicating features. Patient was recently admitted for a Crohn's flare and was treated with antibiotics and steroids. She has an outpatient appointment scheduled with GI to start a new biologic. Patient reports she has been off the steroid taper for approximately 4 days. Patient was admitted and GI was consulted. Patient was made NPO. Patient was given IV Flagyl and IV Rocephin. Patients white blood cell count improved to normal. Patient pain was improving. Patient was started on oral intake and was tolerating a low fiber diet. Patient was ready for discharge. Patient discharged on a steroid taper per GI recommendations. Patient will follow up with GI as scheduled for plans to start a new biologic. Time Spent with Patient Time attestation: Total time spent providing and/or coordinating discharge services: 35 Minutes Exam Const: General: cooperative, no acute distress, well developed, awake, Physically active, in distress, average body habitus and well nourished Nutritional Appearance: average body habitus and well nourished Orientation/consciousness: oriented to person, oriented to place, oriented to time and patient oriented x3 Limitations: no limitations Other: crying, anxious HENMT: Head: normal to inspection, No palpable skull fracture present, normocephalic, atraumatic and abrasion Ears: hearing grossly normal bilaterally and external ears normal Mouth: Yes moist mucous membranes Eyes: General: appearance normal, both eyes and all related structures Alignment and Position: alignment normal Sclera: sclerae normal Pupils: Equal, round and reactive pupils present and Pupil accommodation reflex normal EOM: EOMs intact bilaterally Neck: Neck: normal visual inspection, full ROM, no lymphadenopathy and supple Chest: Chest palpation & inspection: normal inspection of the chest Resp: Effort & Inspection: normal respiratory effort Auscultation: clear to auscultation bilaterally Cardio: Palpation: normal PMI Rate: regular rate Rhythm: regular rhythm Heart sounds: S1 normal heart sound present and S2 normal heart sound present Peripheral pulses: Peripheral pulses 2+ throughout GI: Inspection: normal to inspection Auscultation: normal bowel sounds and Hypoactive bowel sounds present Rectal Exam: deferred Other: Generalized tenderness to mild palpation. : General: Yes no CVA tenderness Back/Spine/Pelvis: Back: no CVA tenderness Skin: General skin exam: normal color and no rashes or lesions noted Lesions: no lesions Rashes: no rashes Trauma: no lacerations or abrasions Wounds: no wounds Hair: normal Nails: normal Neuro: General: oriented to person, oriented to place, oriented to time and patient oriented x3 Cranial nerves: Yes Equal, round and reactive pupils present and Yes Normal hearing present Cognition (Neuro): normal cognition Speech: normal speech Motor exam (neuro): 5/5 motor strength present throughout Sensory Exam: normal sensation Extrem: General: normal to inspection Right upper extremity: normal to inspection and shoulder/upper arm Left upper extremity: normal to inspection and shoulder/upper arm Right lower extremity: normal to inspection Left lower extremity: normal to inspection Psych: Appearance: grossly normal Mental Status: mental status grossly normal Speech and movement: Normal speech and movement present Affect: normal affect Attitude: cooperative Thought process: Normal thought process present Insight: Good insight present (Psych) Judgement: Good judgement present (Psych) DS: Data Data Completed and Pending Labs on day of discharge: Labs from last 24 hours 04/07/25 04/07/25 04/07/25 11:38 07:51 04:19 WBC 7.0 RBC 4.23 Hgb 10.1 L Hct 33.3 L MCV 78.7 L MCH 23.9 L MCHC 30.3 L RDW 17.3 H Plt Count 310 MPV 9.6 Immature Gran % (Auto) 0.4 Neut % (Auto) 77.4 H Lymph % (Auto) 18.7 [place] % (Auto) 3.4 Eos % (Auto) 0.0 Baso % (Auto) 0.1 L Lymph # (Auto) 1.31 [place] # (Auto) 0.2 Eos # (Auto) 0.0 Baso # (Auto) 0.0 Abs Immat Gran (auto) 0.03 Absolute Neuts (auto) 5.4 Absolute Nucleated RBC 0.000 Nucleated RBC % 0.0 Sodium 139 Potassium 3.8 Chloride 110 H Carbon Dioxide 21 L Anion Gap 8 BUN 17 Creatinine 0.69 L Estim Creat Clear Calc 115 Estimated GFR > 60 Glucose 93 POC Capillary Glucose 138 H 85 Calcium 8.4 Total Bilirubin 0.2 AST 22 ALT 17 Alkaline Phosphatase 63 Total Protein 6.6 Albumin 3.6 04/06/25 23:35 WBC RBC Hgb Hct MCV MCH MCHC RDW Plt Count MPV Immature Gran % (Auto) Neut % (Auto) Lymph % (Auto) [place] % (Auto) Eos % (Auto) Baso % (Auto) Lymph # (Auto) [place] # (Auto) Eos # (Auto) Baso # (Auto) Abs Immat Gran (auto) Absolute Neuts (auto) Absolute Nucleated RBC Nucleated RBC % Sodium Potassium Chloride Carbon Dioxide Anion Gap BUN Creatinine Estim Creat Clear Calc Estimated GFR Glucose POC Capillary Glucose 112 H Calcium Total Bilirubin AST ALT Alkaline Phosphatase Total Protein Albumin Discharge Plan Discharge Attending physician on discharge: Jhon Hayes Consulting providers: Car Ruiz; Naina Clayton; Ricky Doherty Discharging Clinician: Rebecca Watts Patient Disposition: Home Activity: as tolerated Diet: low fiber Patient Instructions: Antibiotic Form, How to Stop Smoking (DC), Pain Management (DC) Patient Language: Kinyarwanda Stand Alone Forms: General Discharge Information Follow-up/Referrals: Keith Silva MD [Primary Care Provider, Family Practice] Referral Note: call for an appointment to be seen within 1-2 weeks of discharge Car Ruiz MD [Physician, Gastroenterology] Referral Note: keep your previously scheduled appointment in April to discuss next steps in treatment. Discharge Medications: Continued amlodipine 10 mg tablet 10 mg PO DAILY albuterol sulfate 0.63 mg/3 mL solution for nebulization 0.63 mg inhalation Q6H PRN (Reason: shortness of breath or wheezing) clonazepam [Klonopin] 0.5 mg tablet 0.5 mg PO Q8H PRN (Reason: anxiety) dicyclomine 20 mg tablet 20 mg PO QID PRN (Reason: abdominal discomfort) Qty: 20 0RF ondansetron 4 mg tablet,disintegrating 4 mg PO Q8H PRN (Reason: nausea and vomiting) Qty: 10 0RF docusate sodium [Colace] 100 mg capsule 100 mg PO DAILY Qty: 30 0RF Discontinued prednisone 20 mg tablet 20 mg PO DAILY No Action Tremfya 200 mg/20 mL (10 mg/mL) solution 200 mg IV ONCE prednisone 10 mg tablet 30 mg PO DIRECTED 21 Days Qty: 63 0RF Rx Instructions: see taper instructions prednisone 10 mg tablet 10 mg PO DIRECTED Qty: 52.5 0RF Rx Instructions: Prednisone taper to start 05/14/2025 see taper instructions 25 mg (2.5 tabs) x 7 days, 20 mg (2 tabs) x 7 days, 15 mg (1.5 tabs) x 7 days, 10 mg (1 tab) x 7 days, 5 mg (0.5 tab) x7 days, then stop Date of admission: 04/06/25 11:26 Primary Care Provider: Keith Silva Admitting Provider: Thania Montero Attending physician on admission: Rebecca Watts Condition: Stable
--- NOTE | 2025-04-07 16:26 | WPDGIPROGNO ---
Progress Note: A&P Assessment and Plan (1) Crohn's disease of small intestine with complication: Code(s): K50.019 - Crohn's disease of small intestine with unspecified complications Status: Acute Assessment and Plan: she is going home today with slow taper of steroid and she already has follow-up office in few weeks, then will discuss another biologic- IL23 TB and HBV status negative feeling much better (2) Abdominal pain: Qualifiers: Abdominal location: generalized Qualified Code(s): R10.84 - Generalized abdominal pain Code(s): R10.9 - Unspecified abdominal pain Status: Acute Assessment and Plan: resolved (3) Nausea and vomiting: Qualifiers: Vomiting type: unspecified Qualified Code(s): R11.2 - Nausea with vomiting, unspecified Code(s): R11.2 - Nausea with vomiting, unspecified Status: Acute Assessment and Plan: tolerated diet (4) Enteritis: Code(s): K52.9 - Noninfective gastroenteritis and colitis, unspecified Status: Acute Assessment and Plan: s/p abx Subjective Date/time seen: 04/07/25 16:26 Interval history: much better, going home today Review of Systems Review of Systems: All systems reviewed & are unremarkable except as noted in HPI and below Exam Const: General: comfortable and no acute distress Other: obese HENMT: Face/Nose/Sinus: Normal nares present Eyes: General: appearance normal, both eyes and all related structures Neck: Neck: supple Resp: Effort & Inspection: normal respiratory effort Cardio: Rate: regular rate GI: Inspection: distended GI Palp: No Tenderness to palpation present (GI) and No Guarding due to palpation present (GI) Auscultation: normal bowel sounds Skin: General skin exam: normal color Neuro: Speech: normal speech Motor exam (neuro): 5/5 motor strength present throughout Extrem: General: normal to inspection Psych: Mental Status: mental status grossly normal Objective Data Vital Signs Vital Signs: Vital Signs - 24 hr 04/06/25 20:00 04/06/25 20:47 04/07/25 05:52 Temperature 98.2 F 97.2 F L Pulse Rate 60 61 Respiratory Rate 16 16 Blood Pressure 165/70 H 136/83 Pulse Oximetry 99 100 Oxygen Delivery Room Air 04/07/25 08:00 Temperature Pulse Rate Respiratory Rate Blood Pressure Pulse Oximetry Oxygen Delivery Room Air Intake/Output Intake/Output: Intake & Output 04/04/25 04/05/25 04/06/25 04/07/25 23:59 23:59 23:59 23:59 Intake Total 1050 2450 2552.5 1790 Balance 1050 2450 2552.5 1790 Meds/Results Medications: Active Medications Generic Name Dose Route Start Last Admin Trade Name Freq PRN Reason Stop Dose Admin Hydrocodone Bitart/Acetaminophen 1 tab 04/07/25 12:31 04/07/25 13:49 Hydrocodone/Acetaminophen (*Crx) 5-325 Mg Tablet PO 1 tab Q6H PRN Administration Pain Rated 4-6 Albuterol 2.5 mg 04/05/25 00:20 Albuterol Sulfate Neb 2.5 Mg/3 Ml Inh INHALATION Q6H PRN shortness of breath or wheezing Amlodipine Besylate 10 mg 04/07/25 09:00 04/07/25 08:40 Amlodipine Besylate 10 Mg Tablet PO 10 mg DAILY PAULA Administration Cefdinir 300 mg 04/07/25 21:00 Cefdinir 300 Mg Capsule PO 04/09/25 09:01 Q12HR PAULA Clonazepam 0.5 mg 04/06/25 12:36 04/07/25 08:40 Clonazepam (*Crx) 0.5 Mg Tablet PO 0.5 mg Q8H PRN Administration Anxiety Dextrose 12.5 gm 04/05/25 00:06 Dextrose 50% 25 Gm/50 Ml Syringe IV PUSH PRN PRN Hypoglycemia Protocol Dicyclomine HCl 20 mg 04/07/25 07:54 Dicyclomine Hcl 10 Mg Capsule PO QID PRN abdominal discomfort Diphenhydramine HCl 25 mg 04/04/25 23:47 04/06/25 09:37 Diphenhydramine Hcl Inj 50 Mg/Ml Vial IV PUSH 25 mg Q4H PRN Administration Itching Docusate Sodium 100 mg 04/07/25 09:00 04/07/25 08:51 Docusate Sodium 100 Mg Capsule PO 100 mg DAILY PAULA Administration Famotidine 20 mg 04/05/25 09:00 04/07/25 08:40 Famotidine 20 Mg/2 Ml Vial IV PUSH 20 mg Q12HR PAULA Administration Glucagon 1 mg 04/05/25 00:06 Glucagon For Inj 1 Mg Vial IM PRN PRN Hypoglycemia Protocol Glucose 15 gm 04/05/25 00:06 Glucose Oral Gel 15 Gm Of Glucse In 37.5 Gm Tube PO PRN PRN Hypoglycemia Protocol Hydralazine HCl 10 mg 04/04/25 23:49 Hydralazine Hcl 20 Mg/Ml Vial IV PUSH Q8H PRN Blood Pressure - High Sodium Chloride 1,000 mls @ 150 mls/hr 04/04/25 21:55 04/07/25 13:49 Normal Saline Iv IV CONT 150 mls/hr .Q6H40M PAULA Administration Dextrose 1,000 mls @ 100 mls/hr 04/05/25 00:06 Dextrose 5% 1,000 Ml IVPB PRN PRN Hypoglycemia Protocol Insulin Aspart 2 - 5 units 04/05/25 06:00 04/07/25 13:49 Insulin Aspart (*Bkc) 100 Units/Ml SUB-Q Not Given Q6HR PAULA Protocol Ketorolac Tromethamine 15 mg 04/04/25 23:47 04/06/25 09:37 Ketorolac 15 Mg/Ml Vial (*Bkc) IV PUSH 15 mg Q6H PRN Administration Pain Rated 4-6 Methylprednisolone Sodium Succinate 40 mg 04/06/25 09:00 04/07/25 08:50 Methylprednisolone Sod Succ 125 Mg Vial IV PUSH 40 mg DAILY PAULA Administration Metronidazole 500 mg 04/07/25 22:00 Metronidazole 500 Mg Tablet PO 04/09/25 14:01 Q8HR PAULA Ondansetron HCl 4 mg 04/04/25 21:53 04/06/25 21:05 Ondansetron Inj 4 Mg/2 Ml Vial IV PUSH 4 mg Q4H PRN Administration Nausea Radiology Results: ITS Impressions Abdomen/Pelvis CT 04/04/25 20:46 IMPRESSION: 1. Enterocolitis persists, not significantly changed from 1 month prior. 2. No complicating features. Labs Labs: Laboratory Results - last 24 hr 04/06/25 04/07/25 04/07/25 23:35 04:19 07:51 WBC 7.0 RBC 4.23 Hgb 10.1 L Hct 33.3 L MCV 78.7 L MCH 23.9 L MCHC 30.3 L RDW 17.3 H Plt Count 310 MPV 9.6 Immature Gran % (Auto) 0.4 Neut % (Auto) 77.4 H Lymph % (Auto) 18.7 [place] % (Auto) 3.4 Eos % (Auto) 0.0 Baso % (Auto) 0.1 L Lymph # (Auto) 1.31 [place] # (Auto) 0.2 Eos # (Auto) 0.0 Baso # (Auto) 0.0 Abs Immat Gran (auto) 0.03 Absolute Neuts (auto) 5.4 Absolute Nucleated RBC 0.000 Nucleated RBC % 0.0 Sodium 139 Potassium 3.8 Chloride 110 H Carbon Dioxide 21 L Anion Gap 8 BUN 17 Creatinine 0.69 L Estim Creat Clear Calc 115 Estimated GFR > 60 Glucose 93 POC Capillary Glucose 112 H 85 Calcium 8.4 Total Bilirubin 0.2 AST 22 ALT 17 Alkaline Phosphatase 63 Total Protein 6.6 Albumin 3.6 04/07/25 11:38 WBC RBC Hgb Hct MCV MCH MCHC RDW Plt Count MPV Immature Gran % (Auto) Neut % (Auto) Lymph % (Auto) [place] % (Auto) Eos % (Auto) Baso % (Auto) Lymph # (Auto) [place] # (Auto) Eos # (Auto) Baso # (Auto) Abs Immat Gran (auto) Absolute Neuts (auto) Absolute Nucleated RBC Nucleated RBC % Sodium Potassium Chloride Carbon Dioxide Anion Gap BUN Creatinine Estim Creat Clear Calc Estimated GFR Glucose POC Capillary Glucose 138 H Calcium Total Bilirubin AST ALT Alkaline Phosphatase Total Protein Albumin
== END 2025-04-07 16:20 | disposition home or self-care (01) | DRG 387 ==
LOC: ANHED 21:07 → ANH2MED 22:33
PROVIDERS: Emergency Medicine; Admitting Provider General Practice; Emergency Provider Emergency Medicine; PCP Family Medicine; Visit Provider Nurse Practitioner Adult Health
DX: K50.912 Crohn's disease, unspecified, with intestinal obstruction (principal); K52.9 Noninfective gastroenteritis and colitis, unspecified; D72.829 Elevated white blood cell count, unspecified; D63.8 Anemia in other chronic diseases classified elsewhere; E66.01 Morbid (severe) obesity due to excess calories; F41.9 Anxiety disorder, unspecified; I10 Essential (primary) hypertension; K21.9 Gastro-esophageal reflux disease without esophagitis; R10.84 Generalized abdominal pain; R73.9 Hyperglycemia, unspecified; R11.2 Nausea with vomiting, unspecified; Z88.0 Allergy status to penicillin; Z90.49 Acquired absence of other specified parts of digestive tract; Z87.891 Personal history of nicotine dependence
CPT/HCPCS: 36410; 36415; 74177; 80053; 81001; 82948; 83690; 84702; 85025; 96361; 96372; 96374; 96375; 96376; 99285; A9270; C1751; G0378; J0696; J1171; J1200; J1836; J1885; J1980; J2003; J2405; J2765; J2919; J3360; J7030; J7512; Q9967

== ENCOUNTER 2025-04-19 10:42 | Inpatient (IN) | payer OTHER, SELFPAY ==
--- OUTSIDE RECORDS SUMMARY | 2013-05-02 05:00 | XMS_ITS | Continuity of Care Document ---
Author Organization [facility] [employer] Address [address] [place] [address] Phone Care Team Providers Care Sales And Marketing Specialist Name Role Phone Unavailable Unavailable Unavailable Procedures [...] Diagnoses Date Provider Providers Copied on Encounter [employer], [address], [place], [place], [id number], tel:[phone] [facility] Dental examination 3 No Information [employer], [address], [place], [place], [address], tel:[phone] [facility] Dental examination 3 Nadira Cruz. [address], [place], [place], [address], [place]. tel:[phone] Referring Provider: Nancy Hicks, [address], [place], [address] . tel:[phone] [facility] [employer], [address], [place], [place], [id number], tel:[phone] [facility] Dental examination 3 Nadira Cruz. [address], [place], [place], [address], [place]. tel:[phone] Referring Provider: Nancy Hicks, [address], [place], [address] . tel:[phone] Family History Family Member Type Diagnosis Age At Onset No Information Payers Payer name Insurance type Covered democrat ID Authoriza tion(s) No Information Social History [...]
--- OUTSIDE RECORDS SUMMARY | 2013-05-02 05:00 | XMS_ITS | Continuity of Care Document ---
Author Organization [facility] [employer] Address [address] [place] [address] Phone Care Team Providers Care Charge Account Clerk Name Role Phone Unavailable Unavailable Unavailable Procedures [...] Diagnoses Date Provider Providers Copied on Encounter [facility] Cangrade, [address], [place], [place], [id number], tel:[phone] [facility] Dental examination 3 No Information [employer] Cangrade, [address], [place], [place], [address], tel:[phone] [facility] Dental examination 3 Nadira Cruz. [address], [place], [place], [address], [place]. tel:[phone] Referring Provider: Nancy Hicks, [address], [place], [address] . tel:[phone] [facility] Jarvams Cangrade, [address], [place], [place], [id number], tel:[phone] [facility] Dental examination 3 Nadira Cruz. [address], [place], [place], [address], [place]. tel:[phone] Referring Provider: Nancy Hicks, [address], [place], [address] . tel:[phone] Family History Family Member Type Diagnosis Age At Onset No Information Payers Payer name Insurance type Covered libertarian ID Authoriza tion(s) No Information Social History [...]
--- NOTE | ~2025-04-19 | CT_ITS ---
CT abdomen pelvis w con Clinical History: Abdominal pain. Comparison: 04/04/2025 Technique: Axial images lung bases to symphysis pubis IV contrast information not listed in PACS Coronal, sagittal reformats CT images acquired with automatic exposure control for dose reduction DLP: 1570 mGy-cm Findings: Lung bases: Clear. Visualized heart and pericardium: Unremarkable. Liver: Enlarged. Steatosis. Gallbladder: Removed. Spleen: Unremarkable. Pancreas: Unremarkable. Adrenal glands: Unremarkable. Kidneys: Right kidney- No hydronephrosis. No renal stones. Left kidney- No hydronephrosis. Several stones, largest 8 mm. Distal esophagus/stomach: Unremarkable. Small bowel loops: Diffuse wall thickening. Colon: Scattered wall thickening. Normal RLQ appendix. Nodes: No enlarged nodes. Small inguinal nodes Peritoneum: No ascites. No free air. Urinary bladder: Unremarkable. Uterus: Fibroid. Bones: No acute bony abnormality. Soft tissues: Unremarkable. Aorta: No aneurysm or dissection. IVC: Unremarkable. Main portal vein/SMV/splenic vein: Patent. IMPRESSION: 1. Persistent enterocolitis, not significantly changed or worsened from roughly 2 weeks prior. 2. No complicating features. Reviewed, dictated and finalized at location R. IMPRESSION: 1. Persistent enterocolitis, not significantly changed or worsened from roughl y 2 weeks prior. 2. No complicating features.
[2025-04-19 10:43] VITALS: BP 169/97; PULSE 95; RESP 20; TEMP 36.3; O2SAT 97
--- OUTSIDE RECORDS SUMMARY | 2025-04-19 10:45 | XMS_ITS | Encounter Summary ---
Author Organization [facility] Address [facility] [place] [address] Care Team Providers Care Garbage Pick Up Worker Name Role Phone Keith Silva MD Primary Care Provider [phone] Encounter Details Date Type Department Care Team (Late st Contact Info) Description 11/02/2021 Prep for Procedure [facility] [place] [address] Alfa Marrero, DO [address] [facility] [address] [place] [address] Social History Tobacco Use Types Packs/Day Years [...] often do you attend chur ch or episcopalian services? Never 04/21/2021 Do you belong to any clubs o r organizations such as nondenominational groups, unions, fraternal or athletic groups, or [...] move on to questions 3-9 0 04/21/2021 [facility] - Occupational [...] place to sleep or slept in a nursing home (including now)? 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 Answer Date of Assessment Author Status No 08/12/2021 11:04 AM DINING ROOM TABLES SET UP ATTENDANT Acti ve * Do you have serious [...] AM CDT Gabi Godinez RN Active * [place] Suicide Severity Rating Scale (Screener/Recent Self-Report) Question [...] Date Author Status No 08/12/2021 11:04 AM DINING ROOM TABLES SET UP ATTENDANT Kiara Mir RN Active documented in this [...] SPEC DESCRIPTION NASAL 10/30/19 10:00 AM CDT [facility] CORONAVIRUS SARS COV 2 PCR (RESP) NEGATIVE NEGATIVE 10/29/2021 9:08 PM CDT [facility] Comment: THE SARS-CoV-2 TEST HAS BEEN AUTHORIZED BY THE FDA UNDER AN EUA FOR USE BY AUTHORIZED LABORATORIES. PERFORMED BY NUCLEIC ACID AMPLIFICATION PCR FIRST TEST NO 10/29/2021 10:00 AM CDT [facility] EMPLOYED IN HEALTHCARE NO 10/29/2021 10:00 AM CDT [facility] SYMPTOMATIC DEFINED BY CDC NO 10/29/2021 10:00 AM CDT [facility] HOSPITALIZATION STATUS NO 10/29/2021 10:00 AM CDT [facility] PATIENT IN ICU NO 10/29/2021 10:00 AM CDT [facility] RESIDENT OF [facility] CARE NO 10/29/2021 10:00 AM CDT [facility] NOT 10/29/2021 10:00 AM CDT [facility] NASAL STRUCTURE / Unknown 10/29/2021 9:56 AM CDT Alfa Marrero DO MICROBIOLOGY - GENERAL ORDERABL ES Final Result [facility] [address] [place] [address], [facility] [address] [id number], [place] [phone] documented in this encounter Visit Diagnoses Diagnosis Colitis- Primary Other and unspecified noninfectious gastroenteritis and colitis documented in this encounter Additional Health Concerns Infection Onset Date Last Indicated Resolved Time Norovirus 05/08/2023 05/08/2023 06/05/2023 12:3 2 AM DINING ROOM TABLES SET UP ATTENDANT COVID-19 Rule Out 09/07/2023 09/07/2023 09/07/2023 12:45 PM DINING ROOM TABLES SET UP ATTENDANT COVID-19 Rule Out 09/08/2023 09/08/2023 09/08/2023 6:46 PM DINING ROOM TABLES SET UP ATTENDANT Assessment Noted Time PHQ-9 Depression Total Score: 0 04/21/20 1:26 PM CDT documented as of this encounter Care Teams Garbage Pick Up Worker Relationship Specialty Start Date End Date Keith Silva MD [address] [place] [address] PCP - General FAMILY PRACTICE 11/15/20 documented as of this encounter
--- OUTSIDE RECORDS SUMMARY | 2025-04-19 10:45 | XMS_ITS | Clinical Summary ---
Author Organization [facility] Address [address] [place] [address] Care Team Providers Care Nuclear Design Engineer Name Role Phone Keith Silva MD Primary Care Provider Source Comments [facility],non-owned Affiliates and Associated Physician Practices is amultiple site organization consisting of ambulatory clinics and hospital sitesin [place], [place], [place] and [place]. This disclosure is being madepursuant to the Care Everywhere program and may not contain all information available regarding this patient. Last updated 18.[facility] Allergies Active Allergy Reactions Criticality Noted Date [...] and heating? Not very hard 02/10/2024 [facility] - Occupational Stress [...] place to sleep or slept in a snf (including now)? No 02/10/2024 Comments Unknown Sex [...] age to complete this [place] [address] [facility] Advance Directives * Full Code (Latest Code Status on File) Date Activated Date Inactivated Comments 02/10/2024 10:27 PM 02/13/2024 2:06 PM Care Teams Nuclear Design Engineer Relationship Specialty Start Date End Date Keith Silva MD [address] [phone] PCP - General Family Medicine 02/10/24
--- OUTSIDE RECORDS SUMMARY | 2025-04-19 10:45 | XMS_ITS | Encounter Summary ---
Author Organization [facility] Address [facility] [place] [address] Care Team Providers Care Senior Mobile Application Developer Name Role Phone Keith Silva MD Primary Care Provider [phone] Reason for Visit * Reason Onset Date Comments Pre-op Question(s) 10/25/2023 Encounter Details Date Type Department Care Team (Late st Contact Info) Description 10/25/2023 Pre-Procedure Call [facility] Endo/GI [address] [place] [address] Bladimir Claudio MD [address] [place] [phone] Pre-op Question(s) Social History Tobacco Use Types Packs/Day Years Used Date Smoking Tobacco: Light Smoker Cigarettes Smokeless Tobacco: Never Tobacco Cessation:Ready to Q uit: Not Asked; Counseling Given: Not Answered Alcohol Use Standard Drinks/Week Comments Yes 0 (1 standard drink = 0.6 oz pur e alcohol) socially [facility] Utilities Answer Date Recorded In the past 12 months has [employer], oil, or water [employer] threatened to shut off services in your [...] often do you attend chur ch or taoism services? Never 09/22/2023 Do you [...] Recorded Patient Health Questionnaire-2 Score 3 09/22/2023 [facility] - Occupational Stress [...] slept in a prison (including now)? No 09/22/2023 Comments No Sex [...] Assessment Author Status No 09/22/2023 1:05 PM CUT OFF MACHINE UNLOADER Greiff, Yasmin D, RN Active * Because of a physical, mental, or emotional condition, do you have difficulty doing errands alone such as visiting a doctor's office or shopping? Answer Date of Assessment Author Status No 09/22/2023 1:05 PM CUT OFF MACHINE UNLOADER Yasmin Whitley RN Active documented as of [...] support at home upon discharge General No Mie Farmer RN Patient will return to prior living situation and remain independent in ADLs upon discharge from hospital Lifestyle No Lashae Howard MSW documented as of this encounter Visit Diagnoses Not on filedocumented in this encounter Additional Health Concerns Assessment Noted Time PHQ-9 Depression Total Score: 15 024 8:40 AM CUT OFF MACHINE UNLOADER documented as of this encounter Care Teams Senior Mobile Application Developer Relationship Specialty Start Date End Date Keith Silva MD [address] [place] [address] PCP - General FAMILY PRACTICE 11/15/20 documented as of this encounter
--- OUTSIDE RECORDS SUMMARY | 2025-04-19 10:45 | XMS_ITS | Encounter Summary ---
Author Organization [facility] Address [facility] [place] [address] Care Team Providers Care Aircraft Delivery Checker Name Role Phone Keith Silva MD Primary Care Provider [phone] Encounter Details Date Type Department Care Team (Late st Contact Info) Description 07/19/2021 Prep for Procedure [facility] [place] [address] Alfa Marrero, DO 4 [facility] [address] [place] [address] Social History Tobacco Use Types Packs/Day Years [...] often do you attend chur ch or quaker services? Never 04/21/2021 Do you belong to any clubs o r organizations such as episcopalian groups, unions, fraternal or athletic groups, or [...] on to questions 3-9 0 04/21/2021 [facility] of Occupat ional Health - [...] place to sleep or slept in a detention (including now)? No 04/21/2021 Comments No Sex [...] COVID-19? No / Unsure 07/20/2021 9:39 AM CELLOPHANE BAG MACHINE OPERATOR documented as of this encounter Functional Status [...] AM Franchesca De Guzman RN Active * [place] Suicide Severity Rating Scale (Screener/Recent Self-Report) Question [...] of home safety measures General No Sinai Taylro RN documented as of this encounter Visit Diagnoses Diagnosis Crohn's colitis ([facility])- Primary Regional enteritis of large intestine documented in this encounter Additional Health Concerns Infection Onset Date Last Indicated Resolved Time COVID-19 Rule Out 07/19/2021 07/19/2021 07/19/2021 10:23 AM CELLOPHANE BAG MACHINE OPERATOR COVID-19 Rule Out 07/19/2021 07/19/2021 07/19/2021 4:26 PM CELLOPHANE BAG MACHINE OPERATOR COVID-19 Rule Out 10/29/2021 10/29/2021 10/29/2021 9:08 PM CDT Norovirus 05/08/2023 05/08/2023 06/05/2023 12:3 2 AM CELLOPHANE BAG MACHINE OPERATOR COVID-19 Rule Out 09/07/2023 09/07/2023 09/07/2023 12:45 PM CELLOPHANE BAG MACHINE OPERATOR COVID-19 Rule Out 09/08/2023 09/08/2023 09/08/2023 6:46 PM CELLOPHANE BAG MACHINE OPERATOR Assessment Noted Time PHQ-9 Depression Total Score: 0 04/21/20 21 1:26 PM CDT documented as of this encounter Care Teams Aircraft Delivery Checker Relationship Specialty Start Date End Date Keith Silva MD [address] [place] [address] PCP - General FAMILY PRACTICE 11/15/20 documented as of this encounter
--- OUTSIDE RECORDS SUMMARY | 2025-04-19 10:45 | XMS_ITS | Clinical Summary ---
Author Organization [facility] Address [address] [place] [address] Care Team Providers Care Third Grade Teacher Name Role Phone Keith Silva MD Primary Care Provider [phone] Allergies Active Allergy Reactions Criticality Noted Date [...] Noted Date Diagnosed Date Acute Crohn's disease ([facility]) 12/08/19 Crohn disease ([facility]) 12/02/2024 Crohn's disease ([facility]) 12/09/2023 Enteritis 03/15/2022 Crohn's disease of colon wit hout complication ([facility]) 02/02/2022 Abdominal pain 02/01/2022 Exacerbation of Crohn's disease ([facility] ) 08/12/2021 Sepsis ([facility]) 05/10/2021 Microcytic anemia 01/17/2021 GERD (gastroesophageal reflux disease) 0 Overview (04/21/2021): Last Assessment & Plan: Continue PPIs. Class 3 severe obesity with serious comorbidity in adult 08/21/2019 Overview (04/21/2021): Last Assessment & Plan: Increases her overall morbidity and mortality. Exacerbation of Crohn's dise ase of small intestine ([facility]) 08/21/2019 Overview (04/21/2021): Last Assessment & Plan: Continue IV fluids, steroids and antibiotics. Per GI consultation during her last hospitalization last month, anticipating outpatient MRI enterography, prior to initiating Humira or Remicade. Tobacco dependence 08/21/2019 Overview (04/21/2021): Last Assessment & Plan: Counseled to quit on admission. Acute Crohn's disease with i ntestinal obstruction ([facility]) 07/18/2019 Poor venous access 08/29/2018 Encounter for smoking cessation counseling 07/09 Overview (04/21/2021): Last Assessment & Plan: Smoking cessation discussed with patient for four minutes nicotine patch declined SBO (small bowel obstruction) ([facility]) 05/22/2017 Overview (04/21/2021): Last Assessment & Plan: Surgery consulted appreciate recommendations NPO Pain control Antiemetics IV fluids Patient refusing NG tube at this time Hypokalemia 05/22/2017 Overview (04/21/2021): Last Assessment & Plan: K+ 3.2, K+ protocol placed Patient Service Specialist with BMP in AM Intractable abdominal pain 02/12/2017 Overview (04/21/2021): Last Assessment & Plan: Likely secondary to bowel obstruction IV Morphine 2mg Q3hr PRN Ofirmev Toradol 15mg IVP Q6hr Anxiety 02/12/2017 Overview (04/21/2021): Last Assessment & Plan: Not on home med Will do as needed meds Resolved Problems Problem Noted Date Diagnosed Date Resolved Date SBO (small bowel obstruction ) ([facility]) 01/16/2021 01/17/2021 Immunizations Immunization Administration Dates Next [...] = 0.6 oz pur e alcohol) socially [facility] Utilities Answer Date Recorded In the [...] week 09/22/2023 How often do you attend [facility] or rastafarian services? Never 09/22/2023 Do you belong to any clubs o r organizations such as christian groups, unions, fraternal or athletic groups, or [...] Recorded Patient Health Questionnaire-2 Score 3 09/22/2023 [facility] - Occupational Stress Questionnaire Answer Date Recorded [...] place to sleep or slept in a usp (including now)? No 09/22/2023 Housing Stability Vital Sign Answer Avinash e Recorded In the last 12 months, was t here a time when you were not able to pay the mortgage or rent on time? No 12/07/2024 In the past 12 months, how m any times have you moved where you were living? 0 12/07/2024 At any time in the past 12 m [facility], were you homeless or living in a usp (including now)? No 12/07/2024 Comments Unknown Sex [...] HPV 02/27/2012 Mammogram Screening 2022 PHQ-2 (Physician Elem) 07/17/2024 09/22/2023 COVID-19 Vaccine (2023-2 5 season) [...] Howard MSW [employer] Implanted Type Area Research Editor Device Identifier Shelf Expiration Date Model / Serial / Lot Mesh Mesh Abdomen Pillcam Implanted:Qty: 1 on 10/30/2023 by Sera Coronado RN at [facility] 12/18/2024 / [id number] / [id number] Description:Cindy Reyes RN implanted Procedures Procedure Name Priority Date/Time Associated Diagnosis Comments HC EIA QL HEPATITIS ABC B AG Routine 09/23/2023 3:47 PM GARDEN TRACTOR MECHANIC from Last 3 Months or Most Recently Relevant to Health Maintenance Results * HEPATITIS A,B,& C (09/23/2023 3:47 PM GARDEN TRACTOR MECHANIC) HEPATITIS B SURFACE AG NON-REACTIVE NON-REACT CONSUELO 09/23/2023 5:44 PM GARDEN TRACTOR MECHANIC [facility] HEP B CORE TOTAL AB NON-REACTIVE NON-REACT CONSUELO 09/23/2023 5:44 PM GARDEN TRACTOR MECHANIC [facility] HEP B SURFACE AB REACTIVE 09/23/2023 5:46 PM GARDEN TRACTOR MECHANIC [facility] HAV IGM NON-REACTIVE NON-REACT CONSUELO 09/23/2023 5:44 PM GARDEN TRACTOR MECHANIC [facility] HEPATITIS C AB NON-REACTIVE NON-REACT CONSUELO 09/23/2023 5:44 PM GARDEN TRACTOR MECHANIC [facility] 09/23/2023 3:47 PM GARDEN TRACTOR MECHANIC Alfa Marrero DO LABORATORY Final Result [facility] [address] [place] [address], [place] [phone] from Last 3 Months or Most Recently Relevant to Health Maintenance Insurance [facility] Advance Directives * Full Code (Latest Code [...] 4:26 PM 05/06/2023 12:54 PM Care Teams Third Grade Teacher Relationship Specialty Start Date End Date Keith Silva MD [address] [place] [address] PCP - General FAMILY PRACTICE 11/15/20
--- OUTSIDE RECORDS SUMMARY | 2025-04-19 10:45 | XMS_ITS | Clinical Summary ---
Author Organization [facility] Address [address] [place] [address] Care Team Providers Care Fire Safety Director Name Role Phone Keith Silva MD Primary Care Provider [phone] Allergies Active Allergy Reactions Criticality Noted Date [...] Q uit: Not Asked; Counseling Given: No [facility] Utilities Answer Date Recorded In the past 12 months has [employer], oil, or water [employer] threatened to shut off services in your home? No 11/11/2024 Social Connection and Isolation Panel Answer Date Recorded In a typical week, how many times do you talk on the phone with family, friends, or neighbors? Three times a week 11/11/2024 How often do you get togethe r with friends or relatives? Three times a week 11/11/2024 How often do you attend [facility] or yazidism services? Never 11/11/2024 Do you belong to any clubs o r organizations such as restoration groups, unions, fraternal or athletic groups, or [...] any time in the past 12 m [facility], were you homeless or living in a fci (including now)? No 11/11/2024 Personal Safety Answer [...] (2 - Td or Tdap) 12/27/2028 Insurance [facility] [place] [address] [facility] Address: [place] [id number] Advance Directives For more information, please contact: [phone] * Full Code (Latest Code Status on File) Date Activated Date Inactivated Comments 11/12/2024 11:59 AM 11/13/2024 4:00 PM * Full Code Date Activated Date Inactivated Comments 11/10/2024 9:53 PM 11/12/2024 11:59 AM Care Teams Fire Safety Director Relationship Specialty Start Date End Date Keith Silva MD [address] [place] [address] PCP - General Family Medicine 07/17/22
--- OUTSIDE RECORDS SUMMARY | 2025-04-19 11:39 | XMS_ITS | Encounter Summary ---
Author Organization [facility] Address [facility] [place] [address] Care Team Providers Care Product Coordinator Name Role Phone Keith Silva MD Primary Care Provider [phone] Encounter Details Date Type Department Care Team (Late st Contact Info) Description 07/19/2021 Prep for Procedure [facility] [place] [address] Alfa Marrero, DO 4 [facility] [address] [place] [address] Social History Tobacco Use Types Packs/Day Years [...] move on to questions 3-9 0 04/21/2021 [facility] of Occupat ional Health - [...] COVID-19? No / Unsure 07/20/2021 9:39 AM STARCH MANGLE TENDER documented as of this encounter Functional Status [...] AM Franchesca De Guzman RN Active * [place] Suicide Severity Rating Scale (Screener/Recent Self-Report) Question [...] encounter Visit Diagnoses Diagnosis Crohn's colitis ([facility])- Primary Regional enteritis of large intestine documented in this encounter Additional Health Concerns Infection Onset Date Last Indicated Resolved Time COVID-19 Rule Out 07/19/2021 07/19/2021 07/19/2021 10:23 AM STARCH MANGLE TENDER COVID-19 Rule Out 07/19/2021 07/19/2021 07/19/2021 4:26 PM STARCH MANGLE TENDER COVID-19 Rule Out 10/29/2021 10/29/2021 10/29/2021 9:08 PM CDT Norovirus 05/08/2023 05/08/2023 06/05/2023 12:3 2 AM STARCH MANGLE TENDER COVID-19 Rule Out 09/07/2023 09/07/2023 09/07/2023 12:45 PM STARCH MANGLE TENDER COVID-19 Rule Out 09/08/2023 09/08/2023 09/08/2023 6:46 PM STARCH MANGLE TENDER Assessment Noted Time PHQ-9 Depression Total Score: 0 04/21/20 21 1:26 PM CDT documented as of this encounter Care Teams Product Coordinator Relationship Specialty Start Date End Date Keith Silva MD [address] [place] [address] PCP - General FAMILY PRACTICE 11/15/20 documented as of this encounter
--- OUTSIDE RECORDS SUMMARY | 2025-04-19 11:39 | XMS_ITS | Clinical Summary ---
Author Organization [facility] Address [address] [place] [address] Care Team Providers Care Child Care Assistant Name Role Phone Keith Silva MD Primary Care Provider Source Comments [facility],non-owned Affiliates and Associated Physician Practices is amultiple site organization consisting of ambulatory clinics and hospital sitesin [place], [place] and [place]. This disclosure is being madepursuant to the Care Everywhere program and may not contain all information available regarding this patient. Last updated 18.[facility] Allergies Active Allergy Reactions Criticality Noted Date [...] care, and heating? Not very hard 02/10/2024 [facility] of Occupat ional Health - Occupational Stress [...] slept in a jail (including now)? No 02/10/2024 Comments Unknown Sex [...] age to complete this [place] [address] [facility] Advance Directives * Full Code (Latest Code Status on File) Date Activated Date Inactivated Comments 02/10/2024 10:27 PM 02/13/2024 2:06 PM Care Teams Child Care Assistant Relationship Specialty Start Date End Date Keith Silva MD [address] [id number] PCP - General Family Medicine 02/10/24
--- OUTSIDE RECORDS SUMMARY | 2025-04-19 11:39 | XMS_ITS | Encounter Summary ---
Author Organization [facility] Address formerly [facility] [place] [address] Care Team Providers Care Public Relations Professional Name Role Phone Keith Silva MD Primary Care Provider [phone] Encounter Details Date Type Department Care Team (Late st Contact Info) Description 11/02/2021 Prep for Procedure [facility] [place] [address] Alfa Marrero, DO 4 [facility] [address] [place] [address] Social History Tobacco Use Types Packs/Day Years [...] often do you attend chur ch or jainism services? Never 04/21/2021 Do you belong to any clubs o r organizations such as presybeterian groups, unions, fraternal or athletic groups, or [...] move on to questions 3-9 0 04/21/2021 [facility] of Occupat ional Health - Occupational [...] place to sleep or slept in a longterm (including now)? No 04/21/2021 Comments No Sex [...] Assessment Author Status No 08/12/2021 11:04 AM FERRIS WHEEL OPERATOR Acti ve * RETIRED Are you blind or do you have serious difficulty seeing, even when wearing glasses? Answer Date of Assessment Author Status No 08/12/2021 11:04 AM FERRIS WHEEL OPERATOR Acti ve * Do you have serious [...] AM CDT Gabi Godinez RN Active * [place] Suicide Severity Rating Scale (Screener/Recent Self-Report) Question [...] Date Author Status No 08/12/2021 11:04 AM FERRIS WHEEL OPERATOR Kiara Mir RN Active documented in this [...] SPEC DESCRIPTION NASAL 10/30/19 10:00 AM CDT [facility] CORONAVIRUS SARS COV 2 PCR (RESP) NEGATIVE NEGATIVE 10/29/2021 9:08 PM CDT [facility] Comment: THE SARS-CoV-2 TEST HAS BEEN AUTHORIZED BY THE FDA UNDER AN EUA FOR USE BY AUTHORIZED LABORATORIES. PERFORMED BY NUCLEIC ACID AMPLIFICATION PCR FIRST TEST NO 10/29/2021 10:00 AM CDT [facility] EMPLOYED IN HEALTHCARE NO 10/29/2021 10:00 AM CDT [facility] SYMPTOMATIC DEFINED BY CDC NO 10/29/2021 10:00 AM CDT [facility] HOSPITALIZATION STATUS NO 10/29/2021 10:00 AM CDT [facility] PATIENT IN ICU NO 10/29/2021 10:00 AM CDT [facility] RESIDENT OF [facility] NO 10/29/2021 10:00 AM CDT [facility] NOT 10/29/2021 10:00 AM CDT [facility] NASAL STRUCTURE / Unknown 10/29/2021 9:56 AM CDT Alfa Marrero DO MICROBIOLOGY - GENERAL ORDERABL ES Final Result [facility] [address] [place] [address], [facility] [address] [place] [id number], [place] [phone] documented in this encounter Visit Diagnoses Diagnosis Colitis- Primary Other and unspecified noninfectious gastroenteritis and colitis documented in this encounter Additional Health Concerns Infection Onset Date Last Indicated Resolved Time Norovirus 05/08/2023 05/08/2023 06/05/2023 12:3 2 AM FERRIS WHEEL OPERATOR COVID-19 Rule Out 09/07/2023 09/07/2023 09/07/2023 12:45 PM FERRIS WHEEL OPERATOR COVID-19 Rule Out 09/08/2023 09/08/2023 09/08/2023 6:46 PM FERRIS WHEEL OPERATOR Assessment Noted Time PHQ-9 Depression Total Score: 0 04/21/20 1:26 PM CDT documented as of this encounter Care Teams Public Relations Professional Relationship Specialty Start Date End Date Keith Silva MD [address] [place] [address] PCP - General FAMILY PRACTICE 11/15/20 documented as of this encounter
--- OUTSIDE RECORDS SUMMARY | 2025-04-19 11:39 | XMS_ITS | Encounter Summary ---
Author Organization [facility] Address [facility] [place] [address] Care Team Providers Care Civil Lawyer Name Role Phone Keith Silva MD Primary Care Provider [phone] Reason for Visit * Reason Onset Date Comments Pre-op Question(s) 10/25/2023 Encounter Details Date Type Department Care Team (Late st Contact Info) Description 10/25/2023 Pre-Procedure Call [facility]GI [address] [facility] [place] [address] Bladimir Claudio MD [address] [place] [phone] Pre-op Question(s) Social History Tobacco Use Types Packs/Day Years Used Date Smoking Tobacco: Light Smoker Cigarettes Smokeless Tobacco: Never Tobacco Cessation:Ready to Q uit: Not Asked; Counseling Given: Not Answered Alcohol Use Standard Drinks/Week Comments Yes 0 (1 standard drink = 0.6 oz pur e alcohol) socially [facility] Utilities Answer Date Recorded In the past 12 months has [employer], oil, or water [employer] threatened to shut off services in your [...] often do you attend chur ch or voodoo services? Never 09/22/2023 Do you belong to any clubs o r organizations such as religion groups, unions, fraternal or athletic groups, or [...] Recorded Patient Health Questionnaire-2 Score 3 09/22/2023 [facility] of Occupat ional Health - Occupational Stress [...] Assessment Author Status No 09/22/2023 1:05 PM Yasmni Tena, WILMAN Active * Do you have difficulty dressing or bathing? Answer Date of Assessment Author Status No 09/22/2023 1:05 PM DIGITAL STRATEGIST Greiff, Yasmin D, RN Active * Because of a physical, mental, or emotional condition, do you have difficulty doing errands alone such as visiting a doctor's office or shopping? Answer Date of Assessment Author Status No 09/22/2023 1:05 PM DIGITAL STRATEGIST Yasmin Whitley RN Active documented as of [...] Depression Total Score: 15 024 8:40 AM DIGITAL STRATEGIST documented as of this encounter Care Teams Civil Lawyer Relationship Specialty Start Date End Date Keith Silva MD [address] [place] [address] PCP - General FAMILY PRACTICE 11/15/20 documented as of this encounter
--- OUTSIDE RECORDS SUMMARY | 2025-04-19 11:39 | XMS_ITS | Clinical Summary ---
Author Organization [facility] Address [address] [place] [address] Care Team Providers Care Bacon Slicer Name Role Phone Keith Sivla MD Primary Care Provider [phone] Allergies Active Allergy Reactions Criticality Noted Date [...] Q uit: Not Asked; Counseling Given: No [facility] Utilities Answer Date Recorded In the past 12 months has [employer], oil, or water [employer] threatened to shut off services in your [...] How often do you attend [facility] or jew services? Never 11/11/2024 Do you belong to [...] any time in the past 12 m [facility], were you homeless or living in a custodial (including now)? No 11/11/2024 Personal Safety Answer [...] (2 - Td or Tdap) 12/27/2028 Insurance [facility] Member Subscriber Plan / Payer (Ef fective 2021-Present) Name:Roma Clayton Member ID:[id number] Relation to Subscriber:Spouse Name:Dorota Clayton Subscriber ID:[id number] Date of :1988 Address: [address] [place] [address] Payer ID:[id number] (NAIC) [facility] Address: [place] [phone] Advance Directives For more information, please contact: [phone] * Full Code (Latest Code Status on File) Date Activated Date Inactivated Comments 11/12/2024 11:59 AM 11/13/2024 4:00 PM * Full Code Date Activated Date Inactivated Comments 11/10/2024 9:53 PM 11/12/2024 11:59 AM Care Teams Bacon Slicer Relationship Specialty Start Date End Date Keith Silva MD [address] [place] [address] PCP - General Family Medicine 07/17/22
[2025-04-19] MEDS: SODIUM CHLORIDE 0.9% IV 1,000 ML 999 ML IV CONT (11:57)
[2025-04-19] MEDS: HYDROmorphone HCL INJ (*CRX) 1 MG/ML SYR IV PUSH ×3 (11:58→20:14)
[2025-04-19] MEDS: PROCHLORPERAZINE EDISYLATE 10 MG/2 ML VIAL IV PUSH (11:58)
[2025-04-19 12:08] LABS: Hematocrit 45.6 % (37.0-47.0); Hemoglobin 14.2 g/dL (12.0-15.0); Immature Granulocyte Percent A 0.6 % (0-0.5); Lymphocytes Absolute Auto 1.72 K/mm3 (0.9-3.2); Mean Corpuscular HGB Conc 31.1 g/dl (32-36); Mean Corpuscular Hemoglobin 23.6 pg (26-34); Mean Corpuscular Volume 75.7 fl (80-100); Nucleated Red Blood Cells Absolute Auto 0.000 K/mm3 (0.0-0.012); Nucleated Red Blood Cells Perc 0.0 % (0.0-0.2); Platelet Count Result 477 k/mm3 (150-375); Red Blood Count 6.02 M/mm3 (4.2-5.4); White Blood Count 26.2 K/mm3 (4.5-10.0)
--- NOTE | 2025-04-19 12:16 | ED.GENADULT ---
HPI - General Adult General Chief complaint: Abdominal Pain Stated complaint: N/V, abd. pain Time Seen by Provider: 04/19/25 11:31 History of Present Illness HPI narrative: Patient is a 45-year-old female who presents emergency department with chief complaint of abdominal pain patient reports she has history Crohn's and reports that she has been having pain throughout her abdomen patient reports that she has had diarrhea reports he has had nausea patient reports he has Dr. Fajardo the patient also reports that she has had bowel obstructions before in the past Related Data Home Medications ?Medication ?Instructions ?Recorded ?Confirmed ?Last Taken ?Type amlodipine 10 mg tablet 10 mg PO DAILY 11/22/23 04/04/25 03/09/25 History albuterol sulfate 0.63 mg/3 mL 0.63 mg inhalation Q6H PRN 04/04/25 04/04/25 Unknown History solution for nebulization shortness of breath or wheezing clonazepam 0.5 mg tablet (Klonopin) 0.5 mg PO Q8H PRN anxiety 04/04/25 04/04/25 Unknown History Allergies Allergy/AdvReac Type Severity Reaction Status Date / Time Penicillins Allergy Unknown Rash Verified 04/19/25 11:43 morphine AdvReac Nausea and Verified 04/19/25 11:43 Vomiting Review of Systems Review of Systems: A 10 system review of systems was completed on the patient and is negative except for what is stated in the HPI. Nursing and ancillary documentation was reviewed. [facility] Past Medical History Medical History Leukocytosis Iron deficiency anemia Anemia of chronic disease Hyperglycemia Asthma Anxiety Port-A-Cath in place History of right sided Port-A-Cath with subsequent removal placed 2011 removed proximally 2016. Placed due to poor vascular access. Crohn's disease of small intestine with complication Hypertension History of small bowel obstruction Has been treated conservatively and also required surgical intervention x 2 with adhesiolysis. Tobacco abuse Menorrhagia Hepatic steatosis Nephrolithiasis Morbid obesity 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 GERD with esophagitis Anemia Abdominal wall cellulitis Surgical History Surgical History History of esophagogastroduodenoscopy (EGD) History of colonoscopy Status post laparoscopic hernia repair laparoscopic ventral hernia repair with mesh History of exploratory laparotomy Has had what sounds like an exploratory laparotomy with adhesiolysis x 2 in [facility]. History of tonsillectomy History of appendectomy Appendix removed during 2nd exploratory laparotomy. History of cholecystectomy Laparoscopic Family History Family History Father Diabetes mellitus Mother Hypertension Sibling No problems noted. Other Crohn's colitis Social History Social History Social History: She works at [employer] and is to Dorota Surrogate decision maker: Dorota Clayton () Code status: Full code. Smoking packs per day: 0.25 Smoking cigarettes per day: 5.0 Years smoked: 16 Smoking pack-years: 4.00 Smoking status: Current every day smoker Tobacco type: cigarettes Second hand tobacco smoke exposure: No Alcohol intake: never Alcohol use details: 1-2 alcoholic beverages every 1-2 months. Substance use type: marijuana Other substance usage details: smokes marijauna every day Do You Feel Safe in your Home?: Yes Lack of Transportation: No Lack of Food: Never True Current Housing: I Have Housing Concerned About Future Housing: Decline to Answer Difficulty Paying Gas/Electric Bills: Decline to Answer Difficulty Paying for Meds: Decline to Answer Currently Unemployed: No Education: High School Diploma/GED Difficulty w/ Childcare or Family Care: No Living arrangements: with family Additional living arrangements comments: Lives in [place] with her . Recently moved to the area from [facility]. Occupation/Education: occupation Additional occupation/education comments: She works at [employer] Gender identity (if verbalized by the patient): Female Sexual Orientation (if Verbalized by the Patient): Lesbian, Lui, or Homosexual Spiritual care concerns: No Exam Narrative: GENERAL: Well-appearing, well-nourished, and in moderate acute pain distress. HEAD: Normocephalic, atraumatic. EYES: PERRLA and EOMI. ENT: Nares clear, no rhinorrhea or epistaxis. Mucous membranes moist. NECK: Supple. CHEST: Clear to auscultation. No respiratory distress. HEART: Regular rate and rhythm. No murmur heard. Normal peripheral pulses. ABDOMEN: Soft, diffusely tender to palpation, nondistended, normal active bowel sounds. EXTREMITIES: Normal range of motion. No edema. SKIN: Warm, dry, no rash. NEURO: No focal deficits. Alert and oriented x3. PSYCH: Normal mood and affect. Course Vital Signs Vital signs: Vital Signs Temperature 36.3 C L 04/19/25 10:43 Pulse Rate 95 04/19/25 10:43 Respiratory Rate 20 04/19/25 10:43 Blood Pressure 169/97 H 04/19/25 10:43 Pulse Oximetry 97 04/19/25 10:43 Oxygen Delivery Room Air 04/19/25 10:43 Temperature 36.3 C L 04/19/25 10:43 Pulse Rate 95 04/19/25 10:43 Respiratory Rate 20 04/19/25 10:43 Blood Pressure 169/97 H 04/19/25 10:43 Pulse Oximetry 97 04/19/25 10:43 Oxygen Delivery Room Air 04/19/25 10:43 Medical Decision Making MDM Narrative Medical decision making narrative: Differential diagnosis includes Crohn's flare, sepsis, intra-abdominal infection, [place] [id number] Lactic acid was 2.7 CT scan of the abdomen pelvis showed unchanged from previous scan The case was discussed with GI who recommended IV steroids and admission Case was discussed with the hospitalist patient received further care in the outpatient setting Vital Signs Vital Signs: Vital Signs Temperature 36.3 C L 04/19/25 10:43 Pulse Rate 95 04/19/25 10:43 Respiratory Rate 20 04/19/25 10:43 Blood Pressure 169/97 H 04/19/25 10:43 Pulse Oximetry 97 04/19/25 10:43 Oxygen Delivery Room Air 04/19/25 10:43 Temperature 36.3 C L 04/19/25 10:43 Pulse Rate 95 04/19/25 10:43 Respiratory Rate 20 04/19/25 10:43 Blood Pressure 169/97 H 04/19/25 10:43 Pulse Oximetry 97 04/19/25 10:43 Oxygen Delivery Room Air 04/19/25 10:43 Lab Data 04/19/25 12:02 04/19/25 12:02 Labs: Lab Results 04/19/25 04/19/25 04/19/25 Range/Units 12:02 12:51 12:52 WBC 26.2 H (4.5-10.0) K/mm3 RBC 6.02 H (4.2-5.4) M/mm3 Hgb 14.2 D (12.0-15.0) g/dL Hct 45.6 (37.0-47.0) % MCV 75.7 L (80-100) fl MCH 23.6 L (26-34) pg MCHC 31.1 L (32-36) g/dl RDW 18.7 H (11.5-14.5) % Plt Count 477 H D (150-375) k/mm3 MPV 8.9 (7.4-10.4) fl Immature Gran % (Auto) 0.6 H (0-0.5) % Neut % (Auto) 87.9 H (45.5-73.1) % Lymph % (Auto) 6.6 L (18.3-44.2) % [place] % (Auto) 4.7 (2.6-8.5) % Eos % (Auto) 0.0 (0-4.4) % Baso % (Auto) 0.2 (0.2-1.2) % Lymph # (Auto) 1.72 (0.9-3.2) K/mm3 [place] # (Auto) 1.2 H (0.1-0.6) K/mm3 Eos # (Auto) 0.0 (0-0.3) K/mm3 Baso # (Auto) 0.1 (0.0-0.1) K/mm3 Abs Immat Gran (auto) 0.16 H (0.00-0.031) K/mm3 Absolute Neuts (auto) 23.1 H (1.3-6.7) K/mm3 Absolute Nucleated RBC 0.000 (0.0-0.012) K/mm3 Nucleated RBC % 0.0 (0.0-0.2) % Sodium 135 L (137-145) mmol/L Potassium 4.6 (3.4-5.0) mmol/L Chloride 100 (98-107) mmol/L Carbon Dioxide 24 (22-30) mmol/L Anion Gap 11 (4-12) mmol/L BUN 18 H (7-17) mg/dL Creatinine 0.95 (0.7-1.0) mg/dL Estim Creat Clear Calc 84 ml/min Estimated GFR > 60 (59 - ) Glucose 193 H (65-110) mg/dL Lactic Acid 2.7 H (0.7-2.0) mmol/L Calcium 10.1 (8.4-10.2) mg/dL Total Bilirubin 0.8 (0.2-1.3) mg/dL AST 30 (14-36) U/L ALT 23 (6-35) U/L Alkaline Phosphatase 84 (38-126) U/L Total Protein 9.2 H (6.3-8.2) g/dL Albumin 4.8 (3.5-5.1) g/dL Lipase 108 (23-300) U/L Procalcitonin 0.2 ng/mL Urine Color Dark yellow (Yellow) Urine Appearance Turbid H (Clear) Urine pH 5.5 (5.0-9.0) Ur Specific [place] 1.023 (1.001-1.035) Urine Protein 1+ H (Negative) mg/dL Urine Glucose (UA) Negative (Negative) mg/dL Urine Ketones Trace H (Negative) mg/dL Ur Blood (Man) 1+ H (Negative) Urine Nitrate Negative (Negative) Urine Bilirubin Negative (Negative) Urine Urobilinogen 1.0 (<2.0) mg/dL Add Ur Microanalysis Reviewed Leukocyte Esterase Rfl Trace H (Negative) JAONNE/UL Urine RBC 3-5 H (0-2) /hpf Urine WBC 0-5 (0-3) /hpf Ur Squamous Epith Cells Many H (Few) /hpf Urine Bacteria 2+ H /hpf Urine Casts 11-20 POC Urine HCG, Qual Negative (Negative) 04/19/25 Range/Units 14:31 WBC (4.5-10.0) K/mm3 RBC (4.2-5.4) M/mm3 Hgb (12.0-15.0) g/dL Hct (37.0-47.0) % MCV (80-100) fl MCH (26-34) pg MCHC (32-36) g/dl RDW (11.5-14.5) % Plt Count (150-375) k/mm3 MPV (7.4-10.4) fl Immature Gran % (Auto) (0-0.5) % Neut % (Auto) (45.5-73.1) % Lymph % (Auto) (18.3-44.2) % [place] % (Auto) (2.6-8.5) % Eos % (Auto) (0-4.4) % Baso % (Auto) (0.2-1.2) % Lymph # (Auto) (0.9-3.2) K/mm3 [place] # (Auto) (0.1-0.6) K/mm3 Eos # (Auto) (0-0.3) K/mm3 Baso # (Auto) (0.0-0.1) K/mm3 Abs Immat Gran (auto) (0.00-0.031) K/mm3 Absolute Neuts (auto) (1.3-6.7) K/mm3 Absolute Nucleated RBC (0.0-0.012) K/mm3 Nucleated RBC % (0.0-0.2) % Sodium (137-145) mmol/L Potassium (3.4-5.0) mmol/L Chloride (98-107) mmol/L Carbon Dioxide (22-30) mmol/L Anion Gap (4-12) mmol/L BUN (7-17) mg/dL Creatinine (0.7-1.0) mg/dL Estim Creat Clear Calc ml/min Estimated GFR (59 - ) Glucose (65-110) mg/dL Lactic Acid Pending (0.7-2.0) mmol/L Calcium (8.4-10.2) mg/dL Total Bilirubin (0.2-1.3) mg/dL AST (14-36) U/L ALT (6-35) U/L Alkaline Phosphatase (38-126) U/L Total Protein (6.3-8.2) g/dL Albumin (3.5-5.1) g/dL Lipase (23-300) U/L Procalcitonin ng/mL Urine Color (Yellow) Urine Appearance (Clear) Urine pH (5.0-9.0) Ur Specific [place] (1.001-1.035) Urine Protein (Negative) mg/dL Urine Glucose (UA) (Negative) mg/dL Urine Ketones (Negative) mg/dL Ur Blood (Man) (Negative) Urine Nitrate (Negative) Urine Bilirubin (Negative) Urine Urobilinogen (<2.0) mg/dL Add Ur Microanalysis Leukocyte Esterase Rfl (Negative) JOANNE/UL Urine RBC (0-2) /hpf Urine WBC (0-3) /hpf Ur Squamous Epith Cells (Few) /hpf Urine Bacteria /hpf Urine Casts POC Urine HCG, Qual (Negative) Discharge Plan Discharge Clinical Impression: Abdominal pain, Crohn's disease, Leukocytosis Patient Disposition: Still a Patient Condition: Stable Instructions: Antibiotic Form Patient Language: Qatari Prescriptions: No Action amlodipine 10 mg tablet 10 mg PO DAILY albuterol sulfate 0.63 mg/3 mL solution for nebulization 0.63 mg inhalation Q6H PRN (Reason: shortness of breath or wheezing) clonazepam [Klonopin] 0.5 mg tablet 0.5 mg PO Q8H PRN (Reason: anxiety) hydrocodone-acetaminophen 5-325 mg Tablet 1 tablet PO Q6H PRN (Reason: Pain Rated 4-6) Qty: 20 0RF prednisone 5 mg tablet 5 mg PO DIRECTED Qty: 182 0RF Rx Instructions: Take 8 tabs PO daily x 7 days, then take 7 tabs PO daily x 7 days, then take 6 tabs PO daily x 7 days, then take 5 tabs PO daily x 7 days then f/u with GI for further dosage instructions dicyclomine 20 mg tablet 20 mg PO QID PRN (Reason: abdominal discomfort) Qty: 20 0RF ondansetron 4 mg tablet,disintegrating 4 mg PO Q8H PRN (Reason: nausea and vomiting) Qty: 10 0RF docusate sodium [Colace] 100 mg capsule 100 mg PO DAILY Qty: 30 0RF Follow-up/Referrals: Keith Silva MD [Primary Care Provider, [facility]] Time of Disposition: 14:15
[2025-04-19 12:28] LABS: Alanine Aminotransferase 23 U/L (6-35); Albumin Level 4.8 g/dL (3.5-5.1); Alkaline Phosphatase 84 U/L (38-126); Anion Gap 11 mmol/L (4-12); Aspartate Amino Transferase 30 U/L (14-36); Bilirubin,Total 0.8 mg/dL (0.2-1.3); Blood Urea Nitrogen 18 mg/dL (7-17); Calcium 10.1 mg/dL (8.4-10.2); Carbon Dioxide 24 mmol/L (22-30); Chloride 100 mmol/L (98-107); Estimated CRCL calculation 84 ml/min; Estimated Glomerular Filt Rate > 60; Glucose 193 mg/dL (65-110); Lipase 108 U/L (23-300); Potassium 4.6 mmol/L (3.4-5.0); Sodium 135 mmol/L (137-145); Total Protein 9.2 g/dL (6.3-8.2)
[2025-04-19 12:45] LABS: Procalcitonin 0.2 ng/mL
[2025-04-19 12:54] LABS: BEDSIDEPREGUCG Negative (Negative)
[2025-04-19 13:13] LABS: Add Urine Microscopic? YES; Appearance Urine Turbid (Clear); Glucose Urine UA Negative (Negative); Leukocyte Esterase Ur Trace LEU/UL (Negative); Need Manual Microscopic Reviewed; Nitrate Urine Negative (Negative); Specific Grav Ur 1.023 (1.001-1.035)
--- NOTE | 2025-04-19 14:09 | P.HP_ITS ---
H&P: HPI History of Present Illness Date/Time: 04/19/25 14:09 Chief Complaint: Abdominal Pain Narrative: 45 y/o F with PMH of Crohn's disease, HERNANDEZ, asthma, anxiety, HTN, and GERD presents here with abdominal pain, N/V and diarrhea. The patient presents here from home on 04/19 for further evaluation of abdominal pain, nausea, vomiting, and diarrhea. She reports onset of symptoms at 11:30p last night on 04/18. She denies associated hematochezia, melena, or urinary symptoms. She describes the abdominal pain as central but diffuse, radiating to her bilateral flanks, constant, no aggravating factors, and alleviated by heat. She reports her current symptoms are consistent with her previous flare-ups of her Crohn's disease. She was recently admitted to [facility] from 04/03/25-04/07/25 for for a Crohn's flare. At that time she was evaluated by GI, placed on antibiotics, and later discharged home on a steroid taper with follow- up to discuss trying another biologic. She was exchanged trimfia, had transfusion on 04/15. Since transfusion has had general malaise and just felt gross. Has been off the steroid taper for the past 4 days. Initial VS at presentation: 97.3? F, HR 95, R 20, 169/97, and 97% on RA. ED workup showed: WBC 26.2, hemoglobin 14.2 (10.1 on 04/07/2025), platelet count 477, no significant electrolyte derangements, glucose 193, lactic 2.7, and UA equivocal for UTI (could be contaminant as there are many epithelial cells). CT abdomen/pelvis showed persistent enterocolitis not significantly changed or worsened from roughly 2 weeks prior with no complicating features. Review of Systems Review of Systems: All systems reviewed & are unremarkable except as noted in HPI and below [facility] Past Medical History Medical History Leukocytosis Iron deficiency anemia Anemia of chronic disease Hyperglycemia Asthma Anxiety Port-A-Cath in place History of right sided Port-A-Cath with subsequent removal placed 2011 removed proximally 2016. Placed due to poor vascular access. Crohn's disease of small intestine with complication Hypertension History of small bowel obstruction Has been treated conservatively and also required surgical intervention x 2 with adhesiolysis. Tobacco abuse Menorrhagia Hepatic steatosis Nephrolithiasis Morbid obesity 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 GERD with esophagitis Anemia Abdominal wall cellulitis Surgical History Surgical History History of esophagogastroduodenoscopy (EGD) History of colonoscopy Status post laparoscopic hernia repair laparoscopic ventral hernia repair with mesh History of exploratory laparotomy Has had what sounds like an exploratory laparotomy with adhesiolysis x 2 in [facility]. History of tonsillectomy History of appendectomy Appendix removed during 2nd exploratory laparotomy. History of cholecystectomy Laparoscopic Family History Family History Father Diabetes mellitus Mother Hypertension Sibling No problems noted. Other Crohn's colitis Social History Social History Social History: She works at [employer] and is to Dorota Surrogate decision maker: Dorota Clayton () Code status: Full code. Smoking packs per day: 0.25 Smoking cigarettes per day: 5.0 Years smoked: 16 Smoking pack-years: 4.00 Smoking status: Current every day smoker Tobacco type: cigarettes Second hand tobacco smoke exposure: No Alcohol intake: never Alcohol use details: 1-2 alcoholic beverages every 1-2 months. Substance use: current Substance use type: marijuana Other substance usage details: smokes marijauna every day Last use: 04/19/25 Do You Feel Safe in your Home?: Yes Lack of Transportation: No Lack of Food: Never True Current Housing: I Have Housing Concerned About Future Housing: Decline to Answer Difficulty Paying Gas/Electric Bills: Decline to Answer Difficulty Paying for Meds: Decline to Answer Currently Unemployed: No Education: High School Diploma/GED Difficulty w/ Childcare or Family Care: No Living arrangements: with family Additional living arrangements comments: Lives in [place] with her . Recently moved to the area from [facility]. Occupation/Education: occupation Additional occupation/education comments: She works at [employer] Gender identity (if verbalized by the patient): Female Sexual Orientation (if Verbalized by the Patient): Lesbian, Lui, or Homosexual Spiritual care concerns: No Meds Home Medications and Allergies Home Medications ?Medication ?Instructions ?Recorded ?Confirmed ?Type amlodipine 10 mg tablet 10 mg PO DAILY 11/22/2311/08 History dicyclomine 20 mg tablet 20 mg PO QID PRN abdominal 0 11/06/24 04/19/25 Rx discomfort #20 tabs ondansetron 4 mg disintegrating 4 mg PO Q8H PRN nausea and 11/06/24 04/19/25 Rx tablet vomiting #10 tabs docusate sodium 100 mg capsule 100 mg PO DAILY #30 cap s 03/12/25 04/19/25 Rx (Colace) albuterol sulfate 0.63 mg/3 mL 0.63 mg inhalation Q6H PRN 04/04/25 04/19/25 History solution for nebulization shortness of breath or wheez ing clonazepam 0.5 mg tablet (Klonopin) 0.5 mg PO Q8H PRN anxiety 04/04/25 04/19/25 History guselkumab 200 mg/20 mL (10 mg/mL) 200 mg IV ONCE 11/0804/19/25 History intravenous solution (Tremfya) Allergies Allergy/AdvReac Type Severity Reaction Status Date / Time Penicillins Allergy Unknown Rash Verified 04/19/25 11:43 morphine AdvReac Nausea and Verified 04/19/25 11:43 Vomiting Vital Signs Vital Signs - 24 hr 04/19/25 10:43 Temperature 97.3 F L Pulse Rate 95 Respiratory Rate 20 Blood Pressure 169/97 H Pulse Oximetry 97 Oxygen Delivery Room Air Exam Const: General: no acute distress and uncomfortable Other: , female, ill-appearing HENMT: Face/Nose/Sinus: Normal nares present Mouth: Yes moist mucous membranes Eyes: General: appearance normal, both eyes and all related structures Sclera: sclerae normal Pupils: Equal, round and reactive pupils present EOM: EOMs intact bilaterally Resp: Effort & Inspection: normal respiratory effort Auscultation: clear to auscultation bilaterally Cardio: Rate: regular rate Rhythm: regular rhythm Other: S1-S2 present without murmur, rub, ectopy GI: Other: Abdomen diffusely tender, hypoactive bowel sounds in all quadrants, nondistended. Abdomen soft. Skin: General skin exam: normal color and no rashes or lesions noted Wounds: no wounds Neuro: Speech: normal speech Motor exam (neuro): 5/5 motor strength present throughout Sensory Exam: normal sensation Other: A&O x4 Extrem: General: normal to inspection Psych: Mental Status: mental status grossly normal Affect: normal affect Other: Good insight and judgment, pleasant H&P: Results Labs Labs: Short CBC 04/19/25 Range/Units 12:02 WBC 26.2 H (4.5-10.0) K/mm3 Hgb 14.2 D (12.0-15.0) g/dL Hct 45.6 (37.0-47.0) % Plt Count 477 H D (150-375) k/mm3 BMP 04/19/25 12:02 Sodium 135 L Potassium 4.6 Chloride 100 Carbon Dioxide 24 BUN 18 H Creatinine 0.95 Glucose 193 H Calcium 10.1 Liver Function 04/19/25 Range/Units 12:02 Total Bilirubin 0.8 (0.2-1.3) mg/dL AST 30 (14-36) U/L ALT 23 (6-35) U/L Alkaline Phosphatase 84 (38-126) U/L Albumin 4.8 (3.5-5.1) g/dL Urine 04/19/25 Range/Units 12:51 Urine Color Dark yellow (Yellow) Urine Appearance Turbid H (Clear) Urine pH 5.5 (5.0-9.0) Ur Specific [place] 1.023 (1.001-1.035) Urine Protein 1+ H (Negative) mg/dL Urine Glucose (UA) Negative (Negative) mg/dL Assessment and Plan Assessment and plan (1) Crohn's colitis: Qualifiers: Digestive disease complication type: without complication Qualified Code(s): K50.10 - Crohn's disease of large intestine without complications Code(s): K50.10 - Crohn's disease of large intestine without complications Status: Acute Assessment and Plan: CT abd/pelvis done in ED on 04/19 and showed no significant change or worsening of persistent enterocolitis compared to CT performed roughly 2 weeks ago, no complicating features. White count now 26.2, 7.0 at discharge on 04/07. However the patient has been on a steroid taper. ED provider spoke with on-call GI provider, Lavon MORENO, who recommended holding off on antibiotic administration, checking stool cultures and C diff as she has been recently on antibiotics, and starting IV steroids. Started on methylprednisolone 60 mg IV daily. - analgesics p.r.n. - check stool culture and C diff, awaiting sample - started on IV steroids: Methylprednisolone 60 mg IV daily - IV fluids: LR 125 mL/hour - clear liquid diet - monitor white count and hemoglobin, hemoglobin noted to be modestly elevated compared to prior at discharge. Likely due to dehydration. - patient's BS 193 upon admission, on steroids for Crohn's. Last A1C was 5.2% on 03/12/2025. (2) Lactic acidosis: Code(s): E87.20 - Acidosis, unspecified Status: Acute Assessment and Plan: Lactic 2.7 upon admission. Suspect this is secondary to acute nausea and vomiting. Holding off on antibiotics per GI recommendations. Started on IV fluids, trend lactic. Trend WBC. UA was equivocal for UTI due to many epithelial cells noted. Repeating UA via straight catheterization for better sample. - IV fluids - trend lactic - trend WBC - recheck UA, likely contaminated sample (3) Hypertension: Qualifiers: Hypertension type: primary hypertension Qualified Code(s): I10 - Essential (primary) hypertension Code(s): I10 - Essential (primary) hypertension Status: Chronic Assessment and Plan: - chronic, currently 169/97 - continue home medications: Amlodipine 10 mg daily - monitor Plan Diet: Clear liquid GI Prophylaxis: n/a DVT Prophylaxis: SCDs IV fluids: LR 125 mL/hour Lines/Tubes: peripheral IV Code Status: full code Quality VTE Prophylaxis VTE prophylaxis: mechanical ordered Hospitalist MIPS Advance Care Plan I have confirmed that the patient's Advanced Care Plan is present, code status is documented, or surrogate decision maker is listed in patient medical record.: Yes Medication Reconciliation I have utilized all available resources to obtain, update and review the patients current medications (includes all prescriptions, OTC, herbals, cannabis, and nutritional supplements).: Yes
[2025-04-19 14:59] VITALS: BP 118/70; PULSE 83; RESP 17; O2SAT 98
--- NOTE | 2025-04-19 15:06 | PC.NURSE ---
Pt refused straight cath, said she will provide another urine and will try to clean better this time.
--- NOTE | 2025-04-19 15:15 | ADMGEN ---
This patient, Roma Clayton, was admitted to [facility] Surg Room 314-02. Patient/family oriented to hospital policies and general routines including ID bracelet, bed and alarms, visiting hours, pain management, procedures, bathroom and other care routines, personal items, smoking policy, room service/diet, and visiting hours. Information on how to activate the Rapid Response Team has been discussed. Patient/Family are encouraged to report perceived risks to care and to ask questions if they do not understand what they are told or what they should do.
[2025-04-19 15:46] VITALS: BP 135/81; PULSE 84; RESP 18; TEMP 36.4; O2SAT 100; BMI 47.0
[2025-04-19 15:55] VITALS: PULSE 84; RESP 18; O2SAT 100
[2025-04-19] MEDS: ONDANSETRON INJ 4 MG/2 ML VIAL IV PUSH (16:13)
[2025-04-19] MEDS: LACTATED RINGERS 1,000 ML 125 ML IV CONT (16:13)
[2025-04-19 19:03] LABS: Add Urine Microscopic? YES; Appearance Urine Clear (Clear); Glucose Urine UA Negative (Negative); Leukocyte Esterase Ur Negative LEU/UL (Negative); Need Manual Microscopic Reviewed; Nitrate Urine Negative (Negative); Non Pathogenic Casts 0-2; Specific Grav Ur > 1.045 (1.001-1.035)
[2025-04-19] MEDS: clonazePAM (*CRX) 0.5 MG TABLET PO (20:10)
[2025-04-19 22:00] VITALS: BP 128/84; PULSE 74; RESP 18; TEMP 36.3; O2SAT 97
[2025-04-20] MEDS: HYDROmorphone HCL INJ (*CRX) 1 MG/ML SYR IV PUSH ×4 (00:31→21:13)
[2025-04-20 06:00] VITALS: BP 137/72; PULSE 72; RESP 14; TEMP 36.4; O2SAT 95
[2025-04-20] MEDS: LACTATED RINGERS 1,000 ML 125 ML IV CONT (06:30)
[2025-04-20 06:34] LABS: Hematocrit 38.6 % (37.0-47.0); Hemoglobin 11.8 g/dL (12.0-15.0); Immature Granulocyte Percent A 0.6 % (0-0.5); Lymphocytes Absolute Auto 0.97 K/mm3 (0.9-3.2); Mean Corpuscular HGB Conc 30.6 g/dl (32-36); Mean Corpuscular Hemoglobin 23.9 pg (26-34); Mean Corpuscular Volume 78.1 fl (80-100); Nucleated Red Blood Cells Absolute Auto 0.000 K/mm3 (0.0-0.012); Nucleated Red Blood Cells Perc 0.0 % (0.0-0.2); Platelet Count Result 332 k/mm3 (150-375); Red Blood Count 4.94 M/mm3 (4.2-5.4); White Blood Count 14.1 K/mm3 (4.5-10.0)
[2025-04-20] MEDS: ONDANSETRON INJ 4 MG/2 ML VIAL IV PUSH (06:49)
[2025-04-20 07:01] LABS: Anion Gap 9 mmol/L (4-12); Blood Urea Nitrogen 14 mg/dL (7-17); Calcium 9.4 mg/dL (8.4-10.2); Carbon Dioxide 25 mmol/L (22-30); Chloride 101 mmol/L (98-107); Estimated CRCL calculation 129 ml/min; Estimated Glomerular Filt Rate > 60; Glucose 134 mg/dL (65-110); Potassium 4.2 mmol/L (3.4-5.0); Sodium 135 mmol/L (137-145)
--- NOTE | 2025-04-20 07:15 | PM.IMPN ---
Progress Note: A&P Assessment and Plan (1) Crohn's colitis: Qualifiers: Digestive disease complication type: without complication Qualified Code(s): K50.10 - Crohn's disease of large intestine without complications Code(s): K50.10 - Crohn's disease of large intestine without complications Status: Acute Assessment and Plan: Etiology for the flare is likely multifactorial, stemming from untimely administration of her Stelara due to administrative issues, worsened by an excessively rapid prednisone taper CT abd/pelvis: persistent enterocolitis, not significantly changed or worsened compared to CT performed roughly 2 weeks ago. No complicating features. White count 26.2 on admission, was 7.0 at discharge on 04/07. However the patient had been on a steroid taper. WBC downtrending on am labs despite no antibiotic intervention - Analgesics prn - antibiotics on hold per GI recommendations from the ER - started on methylprednisolone 60 mg IV daily - Diet: Clear liquid, advance per GI - Monitor vital signs, I&Os, track stool output, watch for bloody stools, neuro status and patient is a fall risk - Monitor serum electrolytes and CBC - GI consulted continue intravenous steroids for another 48 hours and advance her diet to a full liquid diet today next Tremfya infusion is scheduled for 05/07/2025. (2) Lactic acidosis: Code(s): E87.20 - Acidosis, unspecified Status: Acute Assessment and Plan: Lactic 2.7 upon admission. Suspect this is secondary to acute nausea and vomiting. No signs of acute infection as UA and lung section of CT unremarkable Holding off on antibiotics per GI recommendations. - Lactic returned to WNL - Fluids discontinued as patient tolerating a diet - trend WBC, downtrending despite no antibiotic intervention (3) Hypertension: Qualifiers: Hypertension type: primary hypertension Qualified Code(s): I10 - Essential (primary) hypertension Code(s): I10 - Essential (primary) hypertension Status: Chronic Assessment and Plan: - chronic, continue home medications: Amlodipine 10 mg daily - blood pressures reviewed and stable, continue to monitor Time Spent With Patient Time with patient: 25 - 35 minutes Subjective Date/time seen: 04/20/25 07:15 Interval history: 45 year old female with past medical history of crohns, HERNANDEZ, asthma, anxiety, HTN and GERD presents to the hospital for abdominal pain, nausea/vomiting and diarrhea. Patient is pleasant sitting up comfortably in bed with family at bedside. She continues to endorse intermittent abdominal pain primarily in the central aspect of her abdomen that she describes as a sharp cramping. She endorses occasional nausea but denies vomiting. She has not had a bowel movement since admission. She has no other complaints denying chest pain, palpitations, shortness of breath. Review of Systems Review of Systems: All systems reviewed & are unremarkable except as noted in HPI and below Exam Narrative: AF HR 72 RR 14 SpO2 95 BP 137/72 General: female in no acute respiratory distress who is nontoxic appearing, sitting up in bed. HEENT: Normocephalic. Atraumatic. Extraocular movement intact. Sclera clear and anicteric. No facial asymmetry. Chest: Lungs are clear to auscultation bilaterally. No wheezes or crackles. CV: Heart was regular rate and rhythm. Abd: Abdomen was soft. Tender to palpation throughout without guarding. Nondistended. Positive bowel sounds. Neuro: Patient is alert. Speech is clear. Objective Data Vital Signs Vital Signs: Vital Signs - 24 hr 04/19/25 10:43 04/19/25 14:59 04/19/25 15:46 Temperature 97.3 F L 97.6 F Pulse Rate 95 83 84 Respiratory Rate 20 17 18 Blood Pressure 169/97 H 118/70 135/81 Pulse Oximetry 97 98 100 Oxygen Delivery Room Air 04/19/25 15:55 04/19/25 20:14 04/19/25 22:00 Temperature 97.3 F L Pulse Rate 84 74 Respiratory Rate 18 18 Blood Pressure 128/84 Pulse Oximetry 100 97 Oxygen Delivery Room Air Room Air Intake/Output Intake/Output: Intake & Output 04/17/25 04/18/25 04/19/25 04/20/25 23:59 23:59 23:59 23:59 Intake Total 1854.6 385.4 Output Total 200 Balance 1654.6 385.4 Meds/Results Medications: Active Medications Generic Name Dose Route Start Last Admin Trade Name Freq PRN Reason Stop Dose Admin Acetaminophen 650 mg 04/19/25 14:21 Acetaminophen 325 Mg Tablet PO Q6H PRN Pain 1-3 or Fever Albuterol 2.5 mg 04/19/25 17:23 Albuterol Sulfate Neb 2.5 Mg/3 Ml Inh INHALATION Q6HRT PRN shortness of breath or wheezing Amlodipine Besylate 10 mg 04/20/25 09:00 Amlodipine Besylate 10 Mg Tablet PO DAILY PAULA Clonazepam 0.5 mg 04/19/25 16:56 04/19/25 20:10 Clonazepam (*Crx) 0.5 Mg Tablet PO 0.5 mg Q8H PRN Administration Anxiety Dicyclomine HCl 20 mg 04/19/25 16:56 Dicyclomine Hcl 10 Mg Capsule PO QID PRN abdominal discomfort Docusate Sodium 100 mg 04/20/25 09:00 Docusate Sodium 100 Mg Capsule PO DAILY PAULA Hydromorphone HCl 1 mg 04/19/25 14:10 04/20/25 00:31 Hydromorphone Hcl Inj (*Crx) 1 Mg/Ml Syr IV PUSH 1 mg Q4H PRN Administration Pain Rated 7-10 Lactated Ringer's 1,000 mls @ 125 mls/hr 04/19/25 14:10 04/20/25 06:30 Lr - Lactated Ringers Iv IV CONT 125 mls/hr .Q8H PAULA Administration Methylprednisolone Sodium Succinate 60 mg 04/20/25 09:00 Methylprednisolone Sod Succ 125 Mg Vial IV PUSH DAILY PAULA Ondansetron HCl 4 mg 04/19/25 14:10 04/20/25 06:49 Ondansetron Inj 4 Mg/2 Ml Vial IV PUSH 4 mg Q4H PRN Administration Nausea Radiology Results: ITS Impressions Abdomen/Pelvis CT 04/19/25 13:25 IMPRESSION: 1. Persistent enterocolitis, not significantly changed or worsened from roughly 2 weeks prior. 2. No complicating features. Labs Labs: Laboratory Results - last 24 hr 04/19/25 04/19/25 04/19/25 12:02 12:51 12:52 WBC 26.2 H RBC 6.02 H Hgb 14.2 D Hct 45.6 MCV 75.7 L MCH 23.6 L MCHC 31.1 L RDW 18.7 H Plt Count 477 H D MPV 8.9 Immature Gran % (Auto) 0.6 H Neut % (Auto) 87.9 H Lymph % (Auto) 6.6 L [place] % (Auto) 4.7 Eos % (Auto) 0.0 Baso % (Auto) 0.2 Lymph # (Auto) 1.72 [place] # (Auto) 1.2 H Eos # (Auto) 0.0 Baso # (Auto) 0.1 Abs Immat Gran (auto) 0.16 H Absolute Neuts (auto) 23.1 H Absolute Nucleated RBC 0.000 Nucleated RBC % 0.0 Sodium 135 L Potassium 4.6 Chloride 100 Carbon Dioxide 24 Anion Gap 11 BUN 18 H Creatinine 0.95 Estim Creat Clear Calc 84 Estimated GFR > 60 Glucose 193 H Lactic Acid 2.7 H Calcium 10.1 Total Bilirubin 0.8 AST 30 ALT 23 Alkaline Phosphatase 84 Total Protein 9.2 H Albumin 4.8 Lipase 108 Procalcitonin 0.2 Urine Color Dark yellow Urine Appearance Turbid H Urine pH 5.5 Ur Specific [place] 1.023 Urine Protein 1+ H Urine Glucose (UA) Negative Urine Ketones Trace H Ur Blood (Man) 1+ H Urine Nitrate Negative Urine Bilirubin Negative Urine Urobilinogen 1.0 Ur Leukocyte Esterase Add Ur Microanalysis Reviewed Leukocyte Esterase Rfl Trace H Urine RBC 3-5 H Urine WBC 0-5 Ur Squamous Epith Cells Many H Urine Bacteria 2+ H Urine Casts 11-20 POC Urine HCG, Qual Negative 04/19/25 04/19/25 04/20/25 14:31 18:40 06:16 WBC 14.1 H RBC 4.94 Hgb 11.8 L Hct 38.6 MCV 78.1 L MCH 23.9 L MCHC 30.6 L RDW 17.9 H Plt Count 332 MPV 9.9 Immature Gran % (Auto) 0.6 H Neut % (Auto) 90.8 H Lymph % (Auto) 6.9 L [place] % (Auto) 1.6 L Eos % (Auto) 0.0 Baso % (Auto) 0.1 L Lymph # (Auto) 0.97 [place] # (Auto) 0.2 Eos # (Auto) 0.0 Baso # (Auto) 0.0 Abs Immat Gran (auto) 0.08 H Absolute Neuts (auto) 12.8 H Absolute Nucleated RBC 0.000 Nucleated RBC % 0.0 Sodium 135 L Potassium 4.2 Chloride 101 Carbon Dioxide 25 Anion Gap 9 BUN 14 Creatinine 0.60 L Estim Creat Clear Calc 129 Estimated GFR > 60 Glucose 134 H Lactic Acid 1.8 Calcium 9.4 Total Bilirubin AST ALT Alkaline Phosphatase Total Protein Albumin Lipase Procalcitonin Urine Color Yellow Urine Appearance Clear Urine pH 6.0 Ur Specific [place] > 1.045 H Urine Protein Trace Urine Glucose (UA) Negative Urine Ketones Negative Ur Blood (Man) 2+ H Urine Nitrate Negative Urine Bilirubin Negative Urine Urobilinogen 0.2 Ur Leukocyte Esterase Negative Add Ur Microanalysis Reviewed Leukocyte Esterase Rfl Urine RBC 3-5 H Urine WBC 0-5 Ur Squamous Epith Cells Few Urine Bacteria Rare Urine Casts 0-2 POC Urine HCG, Qual Quality VTE Prophylaxis VTE prophylaxis: mechanical ordered
[2025-04-20] MEDS: DOCUSATE SODIUM 100 MG CAPSULE PO (08:07)
--- NOTE | 2025-04-20 09:09 | P.CONGI_ITS ---
Assessment and Plan Assessment and plan (1) Crohn's disease: Qualifiers: Digestive disease complication type: with intestinal obstruction G astrointestinal tract location: small intestine Qualified Code(s): K50.012 - Crohn's disease of small intestine with intestinal obstruction Code(s): K50.90 - Crohn's disease, unspecified, without complications Status: Acute Assessment and Plan: The patient is admitted with a Crohn's disease exacerbation. Currently, there is no clinical or radiographic evidence of small bowel obstruction. The most likely etiology for the flare is multifactorial, stemming from untimely administration of her Stelara due to administrative issues, worsened by an excessively rapid prednisone taper (from 40?mg to 5?mg in less than one week). The patient was counseled regarding the importance of a slower steroid taper, especially when transitioning to a new biologic agent. She is responding well to treatment with intravenous Solumedrol and fluids. Her high WBC and Hb reflect hemoconcentration from volume depletion related to vomiting and poor oral intake rather than infection. No need for antibiotics this time. The plan is to continue intravenous steroids for another 48 hours and advance her diet to a full liquid diet today. Her next Tremfya infusion is scheduled for 05/07/2025. (2) Crohn's disease of small intestine with complication: Code(s): K50.019 - Crohn's disease of small intestine with unspecified complications Status: Acute GI Consult Note Consult date/time: 04/20/25 09:09 Reason for consult: Crohn's disease exacerbation HPI: Roma Clayton is a 45-year-old female with a history of small bowel Crohn's disease exacerbations, requiring multiple hospitalizations and steroid courses throughout the year. Due to difficulties with Stelara delivery from [place], her biologic therapy was switched to Tremfya . She received her first intravenous induction infusion on 04/15/2025. Prior to this, she was hospitalized from 04/03/2025 to 04/07/2025 for a Crohn's flare-up and was instructed to taper her prednisone from 40?mg by decreasing 5?mg weekly. However, by the time of her Tremfya infusion on 04/15/2025, she reports she was already taking only 5?mg daily. She was admitted yesterday (04/19/2025) with severe, constant, diffuse central abdominal pain and protracted nausea and vomiting. Initial laboratory data from 04/19/2025 showed marked leukocytosis (26.2 with absolute neutrophils 23.1?) and thrombocytosis 477? with normal renal function (BUN 18?mg/dL, Creatinine 0.95?mg/dL) and a procalcitonin of 0.2?. She was started on 60?mg of Solu-Medrol daily and intravenous fluids. Today, her labs show improvement in the WBC count (14.1?, absolute neutrophils 12.8?) and her hemoglobin is closer to her baseline (11.8) Clinically, she is much improved, reporting 80% relief of her abdominal pain, and has been able to tolerate a clear liquid diet. Review of Systems 2 Review of Systems: All systems reviewed & are unremarkable except as noted in HPI and below PMFSH Past Medical History Medical History Leukocytosis Iron deficiency anemia Anemia of chronic disease Hyperglycemia Asthma Anxiety Port-A-Cath in place History of right sided Port-A-Cath with subsequent removal placed 2011 removed proximally 2016. Placed due to poor vascular access. Crohn's disease of small intestine with complication Hypertension History of small bowel obstruction Has been treated conservatively and also required surgical intervention x 2 with adhesiolysis. Tobacco abuse Menorrhagia Hepatic steatosis Nephrolithiasis Morbid obesity 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 GERD with esophagitis Anemia Abdominal wall cellulitis Surgical History Surgical History History of esophagogastroduodenoscopy (EGD) History of colonoscopy Status post laparoscopic hernia repair laparoscopic ventral hernia repair with mesh History of exploratory laparotomy Has had what sounds like an exploratory laparotomy with adhesiolysis x 2 in [facility]. History of tonsillectomy History of appendectomy Appendix removed during 2nd exploratory laparotomy. History of cholecystectomy Laparoscopic Family History Family History Father Diabetes mellitus Mother Hypertension Sibling No problems noted. Other Crohn's colitis Social History Social History Social History: She works at [employer] and is to Dorota Surrogate decision maker: Dorota Clayton () Code status: Full code. Smoking packs per day: 0.25 Smoking cigarettes per day: 5.0 Years smoked: 16 Smoking pack-years: 4.00 Smoking status: Current every day smoker Tobacco type: cigarettes Second hand tobacco smoke exposure: No Alcohol intake: never Alcohol use details: 1-2 alcoholic beverages every 1-2 months. Substance use: current Substance use type: marijuana Other substance usage details: smokes marijauna every day Last use: 04/19/25 Do You Feel Safe in your Home?: Yes Lack of Transportation: No Lack of Food: Never True Current Housing: I Have Housing Concerned About Future Housing: Decline to Answer Difficulty Paying Gas/Electric Bills: Decline to Answer Difficulty Paying for Meds: Decline to Answer Currently Unemployed: No Education: High School Diploma/GED Difficulty w/ Childcare or Family Care: No Living arrangements: with family Additional living arrangements comments: Lives in [place] with her . Recently moved to the area from [facility]. Occupation/Education: occupation Additional occupation/education comments: She works at [employer] Gender identity (if verbalized by the patient): Female Sexual Orientation (if Verbalized by the Patient): Lesbian, Lui, or Homosexual Spiritual care concerns: No Meds Home Medications and Allergies Home Medications ?Medication ?Instructions ?Recorded ?Confirmed ?Type amlodipine 10 mg tablet 10 mg PO DAILY 11/22/2311/08 History dicyclomine 20 mg tablet 20 mg PO QID PRN abdominal 0 11/06/24 04/19/25 Rx discomfort #20 tabs ondansetron 4 mg disintegrating 4 mg PO Q8H PRN nausea and 11/06/24 04/19/25 Rx tablet vomiting #10 tabs docusate sodium 100 mg capsule 100 mg PO DAILY #30 cap s 03/12/25 04/19/25 Rx (Colace) albuterol sulfate 0.63 mg/3 mL 0.63 mg inhalation Q6H PRN 04/04/25 04/19/25 History solution for nebulization shortness of breath or wheez ing clonazepam 0.5 mg tablet (Klonopin) 0.5 mg PO Q8H PRN anxiety 04/04/25 04/19/25 History guselkumab 200 mg/20 mL (10 mg/mL) 200 mg IV ONCE 11/0804/19/25 History intravenous solution (Tremfya) Allergies Allergy/AdvReac Type Severity Reaction Status Date / Time Penicillins Allergy Unknown Rash Verified 04/19/25 11:43 morphine AdvReac Nausea and Verified 04/19/25 11:43 Vomiting Vital Signs Vital Signs - 24 hr 04/19/25 10:43 04/19/25 14:59 04/19/25 15:46 Temperature 97.3 F L 97.6 F Pulse Rate 95 83 84 Respiratory Rate 20 17 18 Blood Pressure 169/97 H 118/70 135/81 Pulse Oximetry 97 98 100 Oxygen Delivery Room Air 04/19/25 15:55 04/19/25 20:14 04/19/25 22:00 Temperature 97.3 F L Pulse Rate 84 74 Respiratory Rate 18 18 Blood Pressure 128/84 Pulse Oximetry 100 97 Oxygen Delivery Room Air Room Air 04/20/25 06:00 Temperature 97.5 F L Pulse Rate 72 Respiratory Rate 14 Blood Pressure 137/72 Pulse Oximetry 95 Oxygen Delivery Exam 2 Narrative: Alert and oriented x3, not acutely distressed. Abdomen: Soft, nontender, bowel sounds present. Rest of the exam within normal limits. Results Labs 04/20/25 06:16 04/20/25 06:16 Labs: Short CBC 04/19/25 04/20/25 Range/Units 12:02 06:16 WBC 26.2 H 14.1 H (4.5-10.0) K/mm3 Hgb 14.2 D 11.8 L (12.0-15.0) g/dL Hct 45.6 38.6 (37.0-47.0) % Plt Count 477 H D 332 (150-375) k/mm3 BMP 04/19/25 04/20/25 12:02 06:16 Sodium 135 L 135 L Potassium 4.6 4.2 Chloride 100 101 Carbon Dioxide 24 25 BUN 18 H 14 Creatinine 0.95 0.60 L Glucose 193 H 134 H Calcium 10.1 9.4 Liver Function 04/19/25 Range/Units 12:02 Total Bilirubin 0.8 (0.2-1.3) mg/dL AST 30 (14-36) U/L ALT 23 (6-35) U/L Alkaline Phosphatase 84 (38-126) U/L Albumin 4.8 (3.5-5.1) g/dL Urine 04/19/25 04/19/25 Range/Units 12:51 18:40 Urine Color Dark yellow Yellow (Yellow) Urine Appearance Turbid H Clear (Clear) Urine pH 5.5 6.0 (5.0-9.0) Ur Specific [place] 1.023 > 1.045 H (1.001-1.035) Urine Protein 1+ H Trace (Negative) mg/dL Urine Glucose (UA) Negative Negative (Negative) mg/dL
[2025-04-20] MEDS: DICYCLOMINE HCL 10 MG CAPSULE 20 MG PO ×2 (10:32→17:27)
[2025-04-20 14:00] VITALS: BP 117/61; PULSE 65; RESP 18; TEMP 36.3; O2SAT 98
[2025-04-20] MEDS: clonazePAM (*CRX) 0.5 MG TABLET PO (21:13)
[2025-04-20 22:00] VITALS: BP 120/82; PULSE 67; RESP 16; TEMP 36.6; O2SAT 99
[2025-04-21] MEDS: HYDROmorphone HCL INJ (*CRX) 1 MG/ML SYR IV PUSH ×3 (03:51→17:28)
[2025-04-21 06:00] VITALS: BP 106/53; PULSE 60; RESP 15; TEMP 36.4; O2SAT 96
[2025-04-21 08:00] VITALS: PULSE 60; RESP 15; O2SAT 96
--- NOTE | 2025-04-21 09:03 | PM.IMPN ---
Progress Note: A&P Assessment and Plan (1) Crohn's colitis: Qualifiers: Digestive disease complication type: without complication Qualified Code(s): K50.10 - Crohn's disease of large intestine without complications Code(s): K50.10 - Crohn's disease of large intestine without complications Status: Acute Assessment and Plan: Etiology for the flare is likely multifactorial, stemming from untimely administration of her Stelara due to administrative issues, worsened by an excessively rapid prednisone taper CT abd/pelvis: persistent enterocolitis, not significantly changed or worsened compared to CT performed roughly 2 weeks ago. No complicating features. White count 26.2 on admission, was 7.0 at discharge on 04/07. However the patient had been on a steroid taper. WBC downtrending on am labs despite no antibiotic intervention - Analgesics prn - antibiotics on hold per GI recommendations from the ER - started on methylprednisolone 60 mg IV daily - Diet: soft diet - Monitor vital signs, I&Os, track stool output, watch for bloody stools, neuro status and patient is a fall risk - Monitor serum electrolytes and CBC - GI consulted continue intravenous steroids next Tremfya infusion is scheduled for 05/07/2025. Tolerating diet. Denies nausea/vomiting. Continues to endorse central abdominal pain. Well controlled on the current regimen. Continue IV steroids per GI. (2) Lactic acidosis: Code(s): E87.20 - Acidosis, unspecified Status: Acute Assessment and Plan: Lactic 2.7 upon admission. Suspect this is secondary to acute nausea and vomiting. No signs of acute infection as UA and lung section of CT unremarkable Holding off on antibiotics per GI recommendations. - Lactic returned to WNL - Fluids discontinued as patient tolerating a diet - trend WBC, downtrending despite no antibiotic intervention (3) Hypertension: Qualifiers: Hypertension type: primary hypertension Qualified Code(s): I10 - Essential (primary) hypertension Code(s): I10 - Essential (primary) hypertension Status: Chronic Assessment and Plan: - chronic, continue home medications: Amlodipine 10 mg daily - blood pressures reviewed and stable, continue to monitor Time Spent With Patient Time with patient: 25 - 35 minutes Subjective Date/time seen: 04/21/25 09:03 Interval history: 45 year old female with past medical history of crohns, HERNANDEZ, asthma, anxiety, HTN and GERD presents to the hospital for abdominal pain, nausea/vomiting and diarrhea. Patient is pleasant sitting up comfortably in bed. She continues to endorse abdominal cramping that is intermittent and sharp. She is tolerating her current diet well denies any associated nausea/vomiting. She has no complaints denying chest pain, shortness a breath, palpitations. Review of Systems Review of Systems: All systems reviewed & are unremarkable except as noted in HPI and below Exam Narrative: AF HR 62 RR 18 Spo2 96 BP 123/74 General: female in no acute respiratory distress who is nontoxic appearing, sitting up in bed. HEENT: Normocephalic. Atraumatic. Extraocular movement intact. Sclera clear and anicteric. No facial asymmetry. Chest: Lungs are clear to auscultation bilaterally. No wheezes or crackles. CV: Heart was regular rate and rhythm. Abd: Abdomen was soft. Tender to palpation throughout, worse in the periumbilical region, without guarding. Nondistended. Positive bowel sounds. Neuro: Patient is alert. Speech is clear. Objective Data Vital Signs Vital Signs: Vital Signs - 24 hr 04/20/25 14:00 04/20/25 21:13 04/20/25 22:00 Temperature 97.4 F L 97.8 F Pulse Rate 65 67 Respiratory Rate 18 16 Blood Pressure 117/61 120/82 Pulse Oximetry 98 99 Oxygen Delivery Room Air 04/21/25 06:00 Temperature 97.6 F Pulse Rate 60 Respiratory Rate 15 Blood Pressure 106/53 L Pulse Oximetry 96 Oxygen Delivery Intake/Output Intake/Output: Intake & Output 04/18/25 04/19/25 04/20/25 04/21/25 23:59 23:59 23:59 23:59 Intake Total 1854.6 1255.4 100 Output Total 200 Balance 1654.6 1255.4 100 Meds/Results Medications: Active Medications Generic Name Dose Route Start Last Admin Trade Name Freq PRN Reason Stop Dose Admin Acetaminophen 650 mg 04/19/25 14:21 Acetaminophen 325 Mg Tablet PO Q6H PRN Pain 1-3 or Fever Albuterol 2.5 mg 04/19/25 17:23 Albuterol Sulfate Neb 2.5 Mg/3 Ml Inh INHALATION Q6HRT PRN shortness of breath or wheezing Amlodipine Besylate 10 mg 04/20/25 09:00 04/20/25 08:07 Amlodipine Besylate 10 Mg Tablet PO 10 mg DAILY PAULA Administration Clonazepam 0.5 mg 04/19/25 16:56 04/20/25 21:13 Clonazepam (*Crx) 0.5 Mg Tablet PO 0.5 mg Q8H PRN Administration Anxiety Dicyclomine HCl 20 mg 04/19/25 16:56 04/20/25 17:27 Dicyclomine Hcl 10 Mg Capsule PO 20 mg QID PRN Administration abdominal discomfort Docusate Sodium 100 mg 04/20/25 09:00 04/20/25 08:07 Docusate Sodium 100 Mg Capsule PO 100 mg DAILY PAULA Administration Hydromorphone HCl 1 mg 04/19/25 14:10 04/21/25 03:51 Hydromorphone Hcl Inj (*Crx) 1 Mg/Ml Syr IV PUSH 1 mg Q4H PRN Administration Pain Rated 7-10 Methylprednisolone Sodium Succinate 60 mg 04/20/25 09:00 04/20/25 08:07 Methylprednisolone Sod Succ 125 Mg Vial IV PUSH 60 mg DAILY PAULA Administration Ondansetron HCl 4 mg 04/19/25 14:10 04/20/25 06:49 Ondansetron Inj 4 Mg/2 Ml Vial IV PUSH 4 mg Q4H PRN Administration Nausea Sodium Chloride 10 ml 04/21/25 14:00 Saline Lock Flush IV PUSH Q8HR PAULA Sodium Chloride 10 ml 04/21/25 07:15 Saline Lock Flush IV PUSH PRN PRN Flush Sodium Chloride 20 ml 04/21/25 07:15 Saline Lock Flush IV PUSH PRN PRN after blood draws Radiology Results: ITS Impressions Abdomen/Pelvis CT 04/19/25 13:25 IMPRESSION: 1. Persistent enterocolitis, not significantly changed or worsened from roughly 2 weeks prior. 2. No complicating features. Labs Labs: Laboratory Results - last 24 hr 04/19/25 04/19/25 04/19/25 12:02 12:51 12:52 WBC 26.2 H RBC 6.02 H Hgb 14.2 D Hct 45.6 MCV 75.7 L MCH 23.6 L MCHC 31.1 L RDW 18.7 H Plt Count 477 H D MPV 8.9 Immature Gran % (Auto) 0.6 H Neut % (Auto) 87.9 H Lymph % (Auto) 6.6 L Mot[place] % (Auto) 4.7 Eos % (Auto) 0.0 Baso % (Auto) 0.2 Lymph # (Auto) 1.72 Motley # (Auto) 1.2 H Eos # (Auto) 0.0 Baso # (Auto) 0.1 Abs Immat Gran (auto) 0.16 H Absolute Neuts (auto) 23.1 H Absolute Nucleated RBC 0.000 Nucleated RBC % 0.0 Sodium 135 L Potassium 4.6 Chloride 100 Carbon Dioxide 24 Anion Gap 11 BUN 18 H Creatinine 0.95 Estim Creat Clear Calc 84 Estimated GFR > 60 Glucose 193 H Lactic Acid 2.7 H Calcium 10.1 Total Bilirubin 0.8 AST 30 ALT 23 Alkaline Phosphatase 84 Total Protein 9.2 H Albumin 4.8 Lipase 108 Procalcitonin 0.2 Urine Color Dark yellow Urine Appearance Turbid H Urine pH 5.5 Ur Specific [place] 1.023 Urine Protein 1+ H Urine Glucose (UA) Negative Urine Ketones Trace H Ur Blood (Man) 1+ H Urine Nitrate Negative Urine Bilirubin Negative Urine Urobilinogen 1.0 Ur Leukocyte Esterase Add Ur Microanalysis Reviewed Leukocyte Esterase Rfl Trace H Urine RBC 3-5 H Urine WBC 0-5 Ur Squamous Epith Cells Many H Urine Bacteria 2+ H Urine Casts 11-20 POC Urine HCG, Qual Negative 04/19/25 04/19/25 04/20/25 14:31 18:40 06:16 WBC 14.1 H RBC 4.94 Hgb 11.8 L Hct 38.6 MCV 78.1 L MCH 23.9 L MCHC 30.6 L RDW 17.9 H Plt Count 332 MPV 9.9 Immature Gran % (Auto) 0.6 H Neut % (Auto) 90.8 H Lymph % (Auto) 6.9 L [place] % (Auto) 1.6 L Eos % (Auto) 0.0 Baso % (Auto) 0.1 L Lymph # (Auto) 0.97 [place] # (Auto) 0.2 Eos # (Auto) 0.0 Baso # (Auto) 0.0 Abs Immat Gran (auto) 0.08 H Absolute Neuts (auto) 12.8 H Absolute Nucleated RBC 0.000 Nucleated RBC % 0.0 Sodium 135 L Potassium 4.2 Chloride 101 Carbon Dioxide 25 Anion Gap 9 BUN 14 Creatinine 0.60 L Estim Creat Clear Calc 129 Estimated GFR > 60 Glucose 134 H Lactic Acid 1.8 Calcium 9.4 Total Bilirubin AST ALT Alkaline Phosphatase Total Protein Albumin Lipase Procalcitonin Urine Color Yellow Urine Appearance Clear Urine pH 6.0 Ur Specific [place] > 1.045 H Urine Protein Trace Urine Glucose (UA) Negative Urine Ketones Negative Ur Blood (Man) 2+ H Urine Nitrate Negative Urine Bilirubin Negative Urine Urobilinogen 0.2 Ur Leukocyte Esterase Negative Add Ur Microanalysis Reviewed Leukocyte Esterase Rfl Urine RBC 3-5 H Urine WBC 0-5 Ur Squamous Epith Cells Few Urine Bacteria Rare Urine Casts 0-2 POC Urine HCG, Qual Quality VTE Prophylaxis VTE prophylaxis: mechanical ordered
[2025-04-21] MEDS: DOCUSATE SODIUM 100 MG CAPSULE PO (09:18)
[2025-04-21 14:00] VITALS: BP 123/74; PULSE 62; RESP 18; TEMP 36.6; O2SAT 96
[2025-04-21 20:31] VITALS: PULSE 62; RESP 20; O2SAT 98
[2025-04-21 20:47] VITALS: BP 162/69; PULSE 65; RESP 16; TEMP 36.4; O2SAT 98
[2025-04-21] MEDS: SALINE LOCK FLUSH 10 ML IV PUSH (22:05)
--- NOTE | 2025-04-22 03:18 | PC.NURSE ---
Patient's midline was pulled out, 5 attempts to restart new IV. Unable to give IV pain medication due to lose of access. Will contact vascular access in morning. Dr. Montero notified/ aware.
[2025-04-22] MEDS: clonazePAM (*CRX) 0.5 MG TABLET PO (03:33)
[2025-04-22] MEDS: HYDROmorphone HCL INJ (*CRX) 1 MG/ML SYR IV PUSH (03:33)
[2025-04-22] MEDS: ALBUTEROL SULFATE NEB 2.5 MG/3 ML INH INHALATION (03:35)
[2025-04-22 03:40] VITALS: PULSE 70; RESP 20
--- NOTE | 2025-04-22 04:07 | PC.NURSE ---
Charge nurse was able to obtain 20 left wrist access, pt was able to receive IV pain medication.
[2025-04-22 04:38] VITALS: BP 145/73; PULSE 58; RESP 18; TEMP 36.6; O2SAT 95
--- NOTE | 2025-04-22 07:19 | WPDGIPROGNO ---
Progress Note: A&P Assessment and Plan (1) Crohn's disease: Qualifiers: Digestive disease complication type: with intestinal obstruction Gastrointestinal tract location: small intestine Qualified Code(s): K50.012 - Crohn's disease of small intestine with intestinal obstruction Code(s): K50.90 - Crohn's disease, unspecified, without complications Status: Acute Assessment and Plan: Patient with small bowel Crohn's disease, having received the 1st induction dose of Tremfya, admitted for intravenous steroid treatment, doing much better today. Tolerated food very well. Plan - d/c home on Prednisone 30 mg qD - DO NOT TAPER PREDNISONE UNTIL second dose of Tremfya is administered Subjective Date/time seen: 04/22/25 07:19 Interval history: The patient feels much better, no abdominal pain, no nausea or vomiting Exam Narrative: Unchanged from yesterda Objective Data Vital Signs Vital Signs: Vital Signs - 24 hr 04/21/25 08:00 04/21/25 14:00 04/21/25 20:31 Temperature 97.8 F Pulse Rate 60 62 62 Respiratory Rate 15 18 20 Blood Pressure 123/74 Pulse Oximetry 96 96 98 Oxygen Delivery Room Air Room Air Fraction of Inspired Oxygen 21 04/21/25 20:47 04/21/25 20:49 04/22/25 03:40 Temperature 97.6 F Pulse Rate 65 70 Respiratory Rate 16 20 Blood Pressure 162/69 H Pulse Oximetry 98 Oxygen Delivery Room Air Fraction of Inspired Oxygen 04/22/25 04:38 Temperature 97.8 F Pulse Rate 58 L Respiratory Rate 18 Blood Pressure 145/73 H Pulse Oximetry 95 Oxygen Delivery Fraction of Inspired Oxygen Intake/Output Intake/Output: Intake & Output 04/19/25 04/20/25 04/21/25 04/22/25 23:59 23:59 23:59 23:59 Intake Total 1854.6 1255.4 580 550 Output Total 200 Balance 1654.6 1255.4 580 550 Meds/Results Medications: Active Medications Generic Name Dose Route Start Last Admin Trade Name Freq PRN Reason Stop Dose Admin Acetaminophen 650 mg 04/19/25 14:21 Acetaminophen 325 Mg Tablet PO Q6H PRN Pain 1-3 or Fever Albuterol 2.5 mg 04/19/25 17:23 04/22/25 03:35 Albuterol Sulfate Neb 2.5 Mg/3 Ml Inh INHALATION 2.5 mg Q6HRT PRN Administration shortness of breath or wheezing Amlodipine Besylate 10 mg 04/20/25 09:00 04/21/25 09:18 Amlodipine Besylate 10 Mg Tablet PO 10 mg DAILY PAULA Administration Clonazepam 0.5 mg 04/19/25 16:56 04/22/25 03:33 Clonazepam (*Crx) 0.5 Mg Tablet PO 0.5 mg Q8H PRN Administration Anxiety Dicyclomine HCl 20 mg 04/19/25 16:56 04/20/25 17:27 Dicyclomine Hcl 10 Mg Capsule PO 20 mg QID PRN Administration abdominal discomfort Docusate Sodium 100 mg 04/20/25 09:00 04/21/25 09:18 Docusate Sodium 100 Mg Capsule PO 100 mg DAILY PAULA Administration Hydromorphone HCl 1 mg 04/19/25 14:10 04/22/25 03:33 Hydromorphone Hcl Inj (*Crx) 1 Mg/Ml Syr IV PUSH 1 mg Q4H PRN Administration Pain Rated 7-10 Methylprednisolone Sodium Succinate 60 mg 04/20/25 09:00 04/21/25 09:18 Methylprednisolone Sod Succ 125 Mg Vial IV PUSH 60 mg DAILY PAULA Administration Ondansetron HCl 4 mg 04/19/25 14:10 04/20/25 06:49 Ondansetron Inj 4 Mg/2 Ml Vial IV PUSH 4 mg Q4H PRN Administration Nausea Sodium Chloride 10 ml 04/21/25 14:00 04/22/25 05:36 Saline Lock Flush IV PUSH Not Given Q8HR PAULA Sodium Chloride 10 ml 04/21/25 07:15 Saline Lock Flush IV PUSH PRN PRN Flush Sodium Chloride 20 ml 04/21/25 07:15 Saline Lock Flush IV PUSH PRN PRN after blood draws Radiology Results: ITS Impressions Abdomen/Pelvis CT 04/19/25 13:25 IMPRESSION: 1. Persistent enterocolitis, not significantly changed or worsened from roughly 2 weeks prior. 2. No complicating features.
[2025-04-22 08:00] VITALS: PULSE 58; RESP 18; O2SAT 95
[2025-04-22 08:11] LABS: Hematocrit 34.1 % (37.0-47.0); Hemoglobin 10.7 g/dL (12.0-15.0); Mean Corpuscular HGB Conc 31.4 g/dl (32-36); Mean Corpuscular Hemoglobin 24.0 pg (26-34); Mean Corpuscular Volume 76.6 fl (80-100); Platelet Count Result 313 k/mm3 (150-375); Red Blood Count 4.45 M/mm3 (4.2-5.4); White Blood Count 10.9 K/mm3 (4.5-10.0)
[2025-04-22 08:38] LABS: Alanine Aminotransferase 13 U/L (6-35); Albumin Level 3.7 g/dL (3.5-5.1); Alkaline Phosphatase 57 U/L (38-126); Anion Gap 6 mmol/L (4-12); Aspartate Amino Transferase 14 U/L (14-36); Bilirubin,Total 0.4 mg/dL (0.2-1.3); Blood Urea Nitrogen 19 mg/dL (7-17); Calcium 8.9 mg/dL (8.4-10.2); Carbon Dioxide 27 mmol/L (22-30); Chloride 103 mmol/L (98-107); Estimated CRCL calculation 122 ml/min; Estimated Glomerular Filt Rate > 60; Glucose 105 mg/dL (65-110); Potassium 3.8 mmol/L (3.4-5.0); Sodium 136 mmol/L (137-145); Total Protein 6.7 g/dL (6.3-8.2)
[2025-04-22] MEDS: DOCUSATE SODIUM 100 MG CAPSULE PO (09:49)
--- NOTE | 2025-04-22 11:56 | P.DS_ITS ---
DS: Admitting Diagnosis Discharge Date 04/22/2025 Admitting Diagnosis Crohns colitis lactic acidosis htn DS: Discharge Diagnosis Discharge Diagnosis (1) Crohn's colitis: Qualifiers: Digestive disease complication type: without complication Qualified Code(s): K50.10 - Crohn's disease of large intestine without complications Code(s): K50.10 - Crohn's disease of large intestine without complications Status: Acute (2) Lactic acidosis: Code(s): E87.20 - Acidosis, unspecified Status: Acute (3) Hypertension: Qualifiers: Hypertension type: primary hypertension Qualified Code(s): I10 - Essential (primary) hypertension Code(s): I10 - Essential (primary) hypertension Status: Chronic DS: Summary Hospital Course Reason for hospitalization: Crohns colitis lactic acidosis htn Hospital Course: 45 year old female with past medical history of crohns, HERNANDEZ, asthma, anxiety, HTN and GERD presents to the hospital for abdominal pain, nausea/vomiting and diarrhea related to an acute crohns flare. Etiology for the flare is likely multifactorial, stemming from untimely administration of her Stelara due to administrative issues, worsened by an excessively rapid prednisone taper. Patient had leukocytosis on admission however per GI antibiotics were held as the WBC was likely related to volume depletion from vomiting and poor oral intake rather than infection. WBC improved without intervention throughout admission. Patient also noted to have a lactic acidosis on admission likely related again to the poor oral intake and dehydration, resolved with fluids. CT abd/pelvis showed persistent enterocolitis, not significantly changed or worsened compared to CT performed roughly 2 weeks ago. No complicating features. GI consulted and patient started on IV steroids. Throughout admission patient was able to advance back to a soft diet which she tolerated well. She denied any nausea/vomiting. Patient stated pain had greatly improved. Discussed sending patient home on analgesics for breakthrough pain but she is adamant that she does not need pain medications at time of discharge. Prior to discharge discussed prednisone taper with Dr. Doll who states patient is to receive 30 mg prednisone daily until her next infusion (per pt 05/13) then she is to taper by 5 mg per week. Patient had no complaints at time of discharge denying chest pain, shortness a breath, palpitations, nausea/vomiting, and abdominal pain. Patient is also able to ambulate throughout the nursing station and denies associated dizziness/lightheadedness with ambulation. Patient discharged home in a stable condition. She is to follow up with her primary care provider in 1 week and GI as scheduled. Status at Discharge Functional status at discharge: independent ambulation Time Spent with Patient Time attestation: Total time spent providing and/or coordinating discharge services: Time spent: Greater than 30 minutes Exam Narrative: AF HR 58 RR 18 SpO2 95 BP 145/73 General: female in no acute respiratory distress who is nontoxic appearing, sitting up in bed and seen ambulating around nurses station HEENT: Normocephalic. Atraumatic. Extraocular movement intact. Sclera clear and anicteric. No facial asymmetry. Chest: Lungs are clear to auscultation bilaterally. No wheezes or crackles. CV: Heart was regular rate and rhythm. Abd: Abdomen was soft. Slight abdominal tenderness, improved from yesterday. No guarding. Nondistended. Positive bowel sounds. Neuro: Patient is alert. Speech is clear. DS: Data Data Completed and Pending Completed studies during hospitalization: abdomen/pelvis ct Labs on day of discharge: Labs from last 24 hours 04/22/25 08:02 WBC 10.9 H RBC 4.45 Hgb 10.7 L Hct 34.1 L MCV 76.6 L MCH 24.0 L MCHC 31.4 L RDW 17.2 H Plt Count 313 MPV 9.5 Sodium 136 L Potassium 3.8 Chloride 103 Carbon Dioxide 27 Anion Gap 6 BUN 19 H Creatinine 0.64 L Estim Creat Clear Calc 122 Estimated GFR > 60 Glucose 105 Calcium 8.9 Total Bilirubin 0.4 AST 14 ALT 13 Alkaline Phosphatase 57 Total Protein 6.7 Albumin 3.7 Discharge Plan Discharge Attending physician on discharge: Dino Rajput Consulting providers: Kay Molina Discharging Clinician: Kay Molina Anticipated Discharge Date/Time: 04/22/25 09:42 Patient Disposition: Home Activity: as tolerated Diet: as tolerated and other - see discharge instructions Discharge Instructions: Discharge disposition: Patient admitted to the hospital for acute crohns flare Evaluated by GI Take medications as prescribed Prednisone 30 mg daily until 05/13 when you receive the Tremfya infusion, then taper by 5 mg per week. Follow the prednisone taper as directed Attached is information on this medication Follow up with GI as scheduled Monitor blood pressures Take caution while standing, rising, or moving Change positions slowly taking a break between each position change If you standing feel dizzy sit back down and take a break Encouraged to continue with yearly vaccinations Return to the emergency department if he developed sudden shortness of breath, chest pain, nausea, vomiting, upset stomach or intractable diarrhea Return to the emergency department if you develop fever greater than 100.5 Follow-up with the primary care physician within 1-2 weeks Thank you for [facility] for your healthcare needs Patient Instructions: Prednisone (By mouth), Crohn Disease (DC) Patient Language: Uzbek Stand Alone Forms: General Discharge Information Follow-up/Referrals: Keith Silva MD [Primary Care Provider, Family Practice] - 1 Week Adrian Doll MD [Physician, Gastroenterology] - Call for Appointment Discharge Medications: New prednisone 10 mg tablet 30 mg PO DIRECTED 21 Days Qty: 63 0RF Rx Instructions: see taper instructions prednisone 10 mg tablet 10 mg PO DIRECTED Qty: 52.5 0RF Rx Instructions: Prednisone taper to start 05/14/2025 see taper instructions 25 mg (2.5 tabs) x 7 days, 20 mg (2 tabs) x 7 days, 15 mg (1.5 tabs) x 7 days, 10 mg (1 tab) x 7 days, 5 mg (0.5 tab) x7 days, then stop Continued amlodipine 10 mg tablet 10 mg PO DAILY albuterol sulfate 0.63 mg/3 mL solution for nebulization 0.63 mg inhalation Q6H PRN (Reason: shortness of breath or wheezing) clonazepam [Klonopin] 0.5 mg tablet 0.5 mg PO Q8H PRN (Reason: anxiety) Tremfya 200 mg/20 mL (10 mg/mL) solution 200 mg IV ONCE dicyclomine 20 mg tablet 20 mg PO QID PRN (Reason: abdominal discomfort) Qty: 20 0RF ondansetron 4 mg tablet,disintegrating 4 mg PO Q8H PRN (Reason: nausea and vomiting) Qty: 10 0RF docusate sodium [Colace] 100 mg capsule 100 mg PO DAILY Qty: 30 0RF Date of admission: 04/20/25 12:41 Primary Care Provider: Keith Silva Admitting Provider: Thania Montero Attending physician on admission: Thania Montero Condition: Stable Hospitalist MIPS Heart Failure (Exclusion) Patient has history of Heart Transplant or Left Ventricular Assistive Device?: No IF YES, STOP HERE Heart Failure (Qualifier) Patient has current or prior documentation of LVEF less than or equal to 40%, or mod/servere depressed LVSF?: No IF NO, STOP HERE
== END 2025-04-22 12:43 | disposition home or self-care (01) | DRG 386 ==
LOC: ANHED 14:15 → ANH3MEDSUR 14:46
PROVIDERS: Student in an Organized Health Care Education/Training Program; Admitting Provider General Practice; Emergency Provider Emergency Medicine; PCP Family Medicine; Visit Provider Student in an Organized Health Care Education/Training Program
DX: K50.018 Crohn's disease of small intestine with other complication (principal); E87.21 Acute metabolic acidosis; Z68.42 Body mass index [BMI] 45.0-49.9, adult; E86.0 Dehydration; K52.9 Noninfective gastroenteritis and colitis, unspecified; T38.0X6A Underdosing of glucocorticoids and synthetic analogues, initial encounter; I10 Essential (primary) hypertension; D50.9 Iron deficiency anemia, unspecified; D63.8 Anemia in other chronic diseases classified elsewhere; E66.01 Morbid (severe) obesity due to excess calories; K21.9 Gastro-esophageal reflux disease without esophagitis; F41.9 Anxiety disorder, unspecified; D72.829 Elevated white blood cell count, unspecified; R73.9 Hyperglycemia, unspecified; F10.90 Alcohol use, unspecified, uncomplicated; F17.210 Nicotine dependence, cigarettes, uncomplicated; F12.90 Cannabis use, unspecified, uncomplicated; Z87.19 Personal history of other diseases of the digestive system; Z90.49 Acquired absence of other specified parts of digestive tract; Z79.52 Long term (current) use of systemic steroids
CPT/HCPCS: 36410; 36415; 74177; 80048; 80053; 81001; 81025; 83605; 83690; 84145; 85025; 85027; 94640; 96361; 96374; 96375; 96376; 99285; A9270; C1751; G0378; J0780; J1171; J2405; J2919; J7030; J7120; Q9967